=== PATIENT | male | born 1945 | race Caucasian/White ===

== ENCOUNTER → 2019-12-22 10:04 | Outpatient (BNVA) | payer MEDICARE, OTHER, SELFPAY | PROVIDERS: Family Provider Electrodiagnostic Medicine; PCP Electrodiagnostic Medicine; Visit Provider Urology | DX: R39.9 Unspecified symptoms and signs involving the genitourinary system (principal) | CPT/HCPCS: 81001 ==

== ENCOUNTER 2020-08-31 13:04 | Outpatient (CLI) | payer MEDICARE, OTHER, SELFPAY | END 2020-08-31 13:05 | disposition home or self-care (01) | LOC: WOUND 13:05 | PROVIDERS: Family Provider Electrodiagnostic Medicine; PCP Electrodiagnostic Medicine; Visit Provider Nurse Practitioner Family | DX: E11.621 Type 2 diabetes mellitus with foot ulcer (principal); L97.519 Non-pressure chronic ulcer of other part of right foot with unspecified severity | CPT/HCPCS: 99214 ==

== ENCOUNTER 2020-09-07 13:30 | Outpatient (CLI) | payer MEDICARE, OTHER, SELFPAY | END 2020-09-07 13:31 | disposition home or self-care (01) | LOC: WOUND 13:31 | PROVIDERS: Family Provider Electrodiagnostic Medicine; PCP Electrodiagnostic Medicine; Visit Provider Surgery | DX: E11.621 Type 2 diabetes mellitus with foot ulcer (principal); L97.512 Non-pressure chronic ulcer of other part of right foot with fat layer exposed | CPT/HCPCS: 11042 ==

== ENCOUNTER 2020-09-14 13:44 | Outpatient (CLI) | payer MEDICARE, OTHER, SELFPAY | END 2020-09-14 13:45 | disposition home or self-care (01) | LOC: WOUND 13:45 | PROVIDERS: Family Provider Electrodiagnostic Medicine; PCP Electrodiagnostic Medicine; Visit Provider Surgery | DX: E11.621 Type 2 diabetes mellitus with foot ulcer (principal); L97.519 Non-pressure chronic ulcer of other part of right foot with unspecified severity | CPT/HCPCS: 99212 ==

== ENCOUNTER 2020-09-26 07:37 | Outpatient (CLI) | payer MEDICARE, OTHER, SELFPAY ==
--- NOTE | 2020-09-26 07:46 | USCV_ITS ---
Andrés Dumont Age: 75 Gender: M : 1945 Exam Date: 09/26/2020 08:03 Ordering Phys: Hayley Esquivel Technologist: Janet Christensen Exam Location: [facility] [place]_ Indication: HISTORY: PROCEDURES: FINDINGS: The veins were found to be easily compressible with spontaneous blood flow. Non pulsatile flow pattern. Significant venous flux was noted in the distal greater saphenous vein segment on the left side CONCLUSIONS 1. No evidence of DVT in the above-mentioned identifiable veins. 2. Significant venous reflux of greater than 500 ms(1670 msec) was noted in the below-knee segment of the greater saphenous vein on the left side. The venous segment was 0.4 cm in diameter but at a depth of less than 1 cm from the skin surface-may not be ideal for ablation. 3. Rest of the venous dimensions and the depth from the surface are all as mentioned above Dr Danny Mcdonough MD [facility] (Electronically Signed) Final Date: 26 September 2020 14:45 S
== END 2020-09-26 07:38 | disposition home or self-care (01) ==
PROVIDERS: PCP Electrodiagnostic Medicine; Visit Provider Nurse Practitioner Family
DX: E11.621 Type 2 diabetes mellitus with foot ulcer (principal)
CPT/HCPCS: 93970

== ENCOUNTER 2020-09-28 07:40 | Outpatient (CLI) | payer MEDICARE, OTHER, SELFPAY ==
--- NOTE | 2020-09-28 07:46 | USCV_ITS ---
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 Noncompressible vessels bilaterally, suggesting extensive arterial sclerosis 2. Features suggestive of mild peripheral artery disease bilaterally Dr Danny Mcdonough MD [facility] (Electronically Signed) Final Date: 28 September 2020 16:39 S
== END 2020-09-28 07:41 | disposition home or self-care (01) ==
LOC: RAD 07:45
PROVIDERS: PCP Electrodiagnostic Medicine; Visit Provider Nurse Practitioner Family
DX: E11.621 Type 2 diabetes mellitus with foot ulcer (principal)
CPT/HCPCS: 93923

== ENCOUNTER 2020-11-19 11:43 | Outpatient (CLI) | payer MEDICARE, OTHER, SELFPAY ==
[2020-11-19 12:26] LABS: Basophils # 0.1 10^3/uL (0.0-0.1); Basophils % 0.7 %; Eosinophils # 0.4 10^3/uL (0.0-0.8); Eosinophils % 4.8 %; Hematocrit 49.1 % (42.0-52.0); Lymphocytes # 1.6 10^3/uL (0.8-4.8); Lymphocytes % 18.2 %; Mean Corpuscular HGB Conc 32.6 g/dL (30.0-36.0); Mean Corpuscular Hemoglobin 29.3 pg (28.0-34.0); Mean Corpuscular Volume 89.8 fl (80-94); Mean Platelet Volume 10.3 fL (7.4-10.4); Monocytes # 0.9 10^3/uL (0.2-0.9); Monocytes % 10.5 %; Neutrophils # 5.64 10^3/uL (1.8-7.7); Neutrophils % 65.2 %; Nucleated Red Blood Cells % 0 %; Platelet Count 320 10^3/cmm (130-400); Red Blood Count 5.47 10^6/uL (4.1-5.3); Red Cell Distribution Width 14.4 % (12.1-15.1); White Blood Count 8.7 10^3/uL (4.0-10.0)
[2020-11-19 12:43] LABS: Alanine Aminotransferase 32 U/L (0-41); Albumin Level 3.5 g/dL (3.5-5.2); Alkaline Phosphatase 196 IU/L (40-130); Aspartate Amino Transferase 39 U/L (0-40); Blood Urea Nitrogen 34 mg/dL (8-23); Calcium 8.7 mg/dL (8.5-10.5); Carbon Dioxide 27 mmol/L (22-29); Chloride 98 mmol/L (98-107); Globulin 3.8 g/dL (1.3-4.6); Glucose 152 mg/dL (65-115); Osmolality Calculated 297 mOsm/kg (285-295); Phosphorus 3.7 mg/dL (2.5-4.5); Sodium 138 mmol/L (136-145); Total Bilirubin 0.8 mg/dL (0.15-1.2); Total Protein 7.3 g/dL (6.6-8.7); Uric Acid 8.7 mg/dL (3.4-7.0)
[2020-11-19 12:55] LABS: Anion Gap 16.3 (5-19); Potassium 3.3 mmol/L (3.5-5.1)
[2020-11-19 13:10] LABS: Blood Urine 2+ (Negative); Glucose Urine UA Norm (Normal); Ketones Urine 1+ (Negative); Nitrate Urine Negative (Negative); Protein Urine 2+ (Negative); Urine Appearance Clear (CLEAR); Urine Color Yellow (Yellow); pH Urine 5 (5-7)
[2020-11-19 13:11] LABS: Add Urine Culture? No; Add Urine Microscopic? YES; Amorphous Sediment Urine 2+ /hpf; Bacteria Urine TRACE /hpf; Bilirubin Urine 1+ (Negative); Coarse Granular Casts Urine 25-40 /lpf; Leukocyte Esterase Urine Negative (Negative); RBC Urine RARE /hpf (0-2); Urobilinogen Urine Norm (Negative); WBC Urine 0-4 /hpf (0-5)
[2020-11-19 13:56] LABS: Calcium 8.7 mg/dL (8.5-10.5)
[2020-11-19 14:03] LABS: Parathyroid Hormone 112.7 pg/mL (15-65)
== END 2020-11-19 11:44 | disposition home or self-care (01) ==
LOC: LAB 11:53
PROVIDERS: PCP Electrodiagnostic Medicine; Visit Provider Internal Medicine
DX: N18.32 Chronic kidney disease, stage 3b (principal)
CPT/HCPCS: 36415; 80048; 80076; 81001; 82310; 83970; 84100; 84550; 85025

== ENCOUNTER → 2020-12-06 08:53 | Outpatient (BNVA) | payer MEDICARE, OTHER, SELFPAY | PROVIDERS: PCP Electrodiagnostic Medicine; Visit Provider Surgery | DX: Z11.52 Encounter for screening for COVID-19 (principal) | CPT/HCPCS: 87635 ==

== ENCOUNTER 2020-12-13 07:33 | Day surgery (SDC) | payer MEDICARE, OTHER, SELFPAY ==
[2020-12-10 11:17] VITALS: BMI 30.9
--- NOTE | 2020-12-13 08:26 | ANES.PREANE2 ---
Pre-Anesthetic Assessment Pre-Anesthetic Assessment: Height/Weight: Height 1.85 m Weight 106.594 kg Preop Diagnosis: panendoscopy Proposed Procedure: Operation Date: 12/13/20 09:15 Proposed Procedures p EGD Dilation W/ Balloon 79419 R63.8(Not Applicable) - Omar Saleh MD s Colonoscopy 77887 Z12.11(Not Applicable) - Omar Saleh MD Was Beta Bam taken within 24 hours: Yes Was Clonidine taken within 24 hours: N/A Social: Social History: No alcohol and No tobacco Exam: Pre-Anes Outpt Exam: alert, oriented x 3, clear to auscultation bilaterally and regular rate & rhythm Airway: Submandibular: WNL Cervical ROM: WNL Dentition: Chipped and False (upper) CV/HEM: CV/HEM: HTN GI: GI: GERD Metabolic: Metabolic: DM, Hyperlipidemia and Morbid obesity Anesthetic Plan: ASA status: 3 Anesthesia: MAC Risk of > 500 ml blood loss (7ml/kg in children): No PFSH Anesthesia PFSH: Medical History (Updated 11/16/20 @ 11:36 by Omar Saleh MD) Acute cystitis with hematuria Diabetes mellitus GERD (gastroesophageal reflux disease) Prostatitis, acute Venous insufficiency Surgical History (Updated 11/16/20 @ 11:44 by Omar Saleh MD) H/O esophagogastroduodenoscopy Hx of tonsillectomy Status post colonoscopy Status post right inguinal hernia repair Family History Mother , AT AGE 73 Cancer COLON Father , AT AGE 50 Diabetes Social History Alcohol intake: never Current occupational status: retired History of recent travel: No Data Anesthesia Cardiac Studies: No Data to Display
[2020-12-13 08:41] VITALS: BP 129/79; PULSE 78; RESP 16; TEMP 36.1; O2SAT 98
[2020-12-13] MEDS: sodium chloride 0.9% 1,000 ML 30 ML IV (08:58)
--- NOTE | 2020-12-13 09:10 | W.PM.OPSUD ---
Surgery/Procedure H&P Update DATE OF PROCEDURE: December 13, 2020 DATE H&P PERFORMED: 11/16/20 H&P UPDATE INFORMATION: I have reviewed H&P completed within last 30 days, I have examined patient prior to procedure and No changes to prior documentation PREOP DIAGNOSIS: panendoscopy PLANNED PROCEDURE: Operation Date: 12/13/20 09:15 Proposed Procedures p EGD Dilation W/ Balloon 05905 R63.8(Not Applicable) - Omar Saleh MD s Colonoscopy 25616 Z12.11(Not Applicable) - Omar Saleh MD
[2020-12-13 09:30] LABS: Glucose Point of Care 150 mg/dL (70-110)
[2020-12-13 10:16] VITALS: BP 82/56; PULSE 64; RESP 16; TEMP 35.6; O2SAT 98
[2020-12-13 10:17] VITALS: BP 92/63; PULSE 62; RESP 16; O2SAT 99
[2020-12-13 10:27] VITALS: BP 101/68; PULSE 69; RESP 18; O2SAT 98
--- NOTE | 2020-12-13 14:23 | ANE.PACU2 ---
Inpatient post-anesthesia follow up: Airway intact: Yes Vital signs: Temperature 96.0 F Pulse Rate 69 Respiratory Rate 18 Blood Pressure 101/68 Pulse Oximetry 98 Oxygen Delivery Me thod Room Air Oxygen Flow Rate 3 Fraction of Inspir ed Oxygen Hydration adequate: Yes Nausea and vomiting: No Pain level: 1 Mental status: Baseline
== END 2020-12-13 10:36 | disposition home or self-care (01) ==
PROVIDERS: PCP Electrodiagnostic Medicine; Visit Provider Surgery
PROC: 0DJD8ZZ Inspection of Lower Intestinal Tract, Via Natural or Artificial Opening Endoscopic (ICD-10-PCS; CPT 45378; 2020-12-13 09:15)
DX: Z12.11 Encounter for screening for malignant neoplasm of colon (principal); R63.8 Other symptoms and signs concerning food and fluid intake; K29.70 Gastritis, unspecified, without bleeding; D12.4 Benign neoplasm of descending colon; K64.8 Other hemorrhoids; I10 Essential (primary) hypertension; K21.9 Gastro-esophageal reflux disease without esophagitis; E11.9 Type 2 diabetes mellitus without complications; E78.5 Hyperlipidemia, unspecified; E66.01 Morbid (severe) obesity due to excess calories; Z68.31 Body mass index [BMI] 31.0-31.9, adult; Z79.4 Long term (current) use of insulin
CPT/HCPCS: 36416; 43235; 45380; 82962; 88305; 96360; 96361; J2704; J7030

== ENCOUNTER 2021-03-28 13:33 | Outpatient (CLI) | payer MEDICARE, OTHER, SELFPAY | END 2021-03-28 13:34 | disposition home or self-care (01) | LOC: SPT 13:34 | PROVIDERS: PCP Electrodiagnostic Medicine; Visit Provider Podiatrist Foot & Ankle Surgery | DX: Z46.89 Encounter for fitting and adjustment of other specified devices (principal); S90.424D Blister (nonthermal), right lesser toe(s), subsequent encounter; X58.XXXD Exposure to other specified factors, subsequent encounter | CPT/HCPCS: 97760; L4361 ==

== ENCOUNTER 2021-05-06 11:01 | Outpatient (CLI) | payer MEDICARE, OTHER, SELFPAY ==
[2021-05-06 12:01] LABS: Basophils # 0.1 10^3/uL (0.0-0.1); Basophils % 0.6 %; Eosinophils # 1.1 10^3/uL (0.0-0.8); Eosinophils % 11.4 %; Hematocrit 47.9 % (42.0-52.0); Hemoglobin 15.5 g/dL (11.7-16.6); Lymphocytes # 1.6 10^3/uL (0.8-4.8); Lymphocytes % 17.2 %; Mean Corpuscular HGB Conc 32.4 g/dL (30.0-36.0); Mean Corpuscular Hemoglobin 29.4 pg (28.0-34.0); Mean Corpuscular Volume 90.7 fl (80-94); Mean Platelet Volume 9.9 fL (7.4-10.4); Monocytes # 1.3 10^3/uL (0.2-0.9); Monocytes % 13.1 %; Neutrophils # 5.48 10^3/uL (1.8-7.7); Neutrophils % 57.3 %; Nucleated Red Blood Cells % 0 %; Platelet Count 310 10^3/cmm (130-400); Red Blood Count 5.28 10^6/uL (4.1-5.3); Red Cell Distribution Width 14.1 % (12.1-15.1); White Blood Count 9.6 10^3/uL (4.0-10.0)
[2021-05-06 12:12] LABS: Add Urine Microscopic? YES; Bilirubin Urine Neg (Negative); Blood Urine 2+ (Negative); Glucose Urine UA Trace (Normal); Ketones Urine Negative (Negative); Leukocyte Esterase Urine Negative (Negative); Nitrate Urine Negative (Negative); Protein Urine 1+ (Negative); Urine Appearance Clear (CLEAR); Urine Color Yellow (Yellow); Urobilinogen Urine Norm (Negative); pH Urine 6 (5-7)
[2021-05-06 12:13] LABS: RBC Urine RARE /hpf (0-2); WBC Urine RARE /hpf (0-5)
[2021-05-06 12:15] LABS: Phosphorus 3.4 mg/dL (2.5-4.5); Uric Acid 7.1 mg/dL (3.4-7.0)
[2021-05-06 12:31] LABS: Calcium 9.8 mg/dL (8.5-10.5)
[2021-05-06 12:39] LABS: Parathyroid Hormone 42.1 pg/mL (15-65)
== END 2021-05-06 11:02 | disposition home or self-care (01) ==
PROVIDERS: PCP Electrodiagnostic Medicine; Visit Provider Internal Medicine
DX: N17.9 Acute kidney failure, unspecified (principal); N18.32 Chronic kidney disease, stage 3b; E21.3 Hyperparathyroidism, unspecified
CPT/HCPCS: 81001; 82310; 83970; 84100; 84550; 85025

== ENCOUNTER → 2021-07-29 08:17 | Outpatient (BNVA) | payer MEDICARE, OTHER, SELFPAY | PROVIDERS: PCP Electrodiagnostic Medicine; Visit Provider Podiatrist Foot & Ankle Surgery | DX: L97.521 Non-pressure chronic ulcer of other part of left foot limited to breakdown of skin (principal); E11.42 Type 2 diabetes mellitus with diabetic polyneuropathy; I87.2 Venous insufficiency (chronic) (peripheral); L60.3 Nail dystrophy; M20.40 Other hammer toe(s) (acquired), unspecified foot; L97.511 Non-pressure chronic ulcer of other part of right foot limited to breakdown of skin; L84 Corns and callosities; Z87.891 Personal history of nicotine dependence | CPT/HCPCS: 11056; 11721; 99213 ==

== ENCOUNTER 2021-08-04 16:48 | Emergency (ER) | payer MEDICARE, OTHER, SELFPAY ==
[2021-08-04] VITALS (7 sets, daily range): BP systolic 157–166; BP diastolic 76–88; PULSE 72–83; RESP 18–20; TEMP 36.8–36.9; O2SAT 89–98; BMI 32.1
--- NOTE | 2021-08-04 18:00 | XRR_ITS ---
PROCEDURE INFORMATION: Exam: XR Chest Exam date and time: 08/04/2021 6:21 PM Age: 76 years old Clinical indication: Cough; Additional info: Productive cough TECHNIQUE: Imaging protocol: XR of the chest. Views: 1 view. COMPARISON: CT chest con [id number] 10/31/2016 8:06 AM FINDINGS: Lungs: There is no consolidation. Central pulmonary vessels are prominent. Pleural spaces: There is no pleural effusion or pneumothorax. Heart/Mediastinum: There is mild enlargement of the cardiac silhouette. Bones/joints: There are chronic left posterior rib fractures. XR/XR chest 1V portable [id number] IMPRESSION: No acute findings.
--- NOTE | 2021-08-04 18:17 | W.ED.URI ---
HPI - URI/Sore Throat General: Chief Complaint: Upper Respiratory Infection Stated Complaint: Sinus infection, coughing Time Seen by Provider: 08/04/21 18:11 History of Present Illness: Patient is a 76-year-old male who comes to the ED with cough and nasal congestion drainage. Patient says he gets this every year around this time. He has seasonal allergies and is currently using Flonase and daily oral antihistamine for his allergies. Nasal drainage/congestion and cough started yesterday. Patient can feel some of his nasal drainage going to the back of his throat causing him to cough. Cough is occasionally productive with yellow or clear sputum. Denies any chest pain, shortness of breath, fever, chills, body aches, sinus pain, nausea/vomiting, abdominal pain, bladder or bowel symptoms. Associated symptoms: Reports nasal congestion; Deny abdominal pain, chills, chest pain, diarrhea, fever(s), headache(s), nausea or vomiting Review of Systems Const: Denies: fever(s), chills or fatigue Eyes: Denies: change in vision or eye discomfort ENMT: Reports: nasal discharge, nasal congestion and post nasal drip; Denies: throat pain or odynophagia Card: Denies: chest pain, palpitations, edema, swelling of feet/ankles, dyspnea on exertion or orthopnea Resp: Reports: productive cough; Denies: dyspnea or non-productive cough GI: Denies: abdominal pain, nausea, vomiting, diarrhea, constipation or hematochezia : Denies: flank pain, difficulty urinating, dysuria or hematuria Musc: Denies: neck pain, back pain or extremity swelling Skin/Breast: Denies: rash or new lesions Neuro: Denies: headache(s), numbness in extremities or weakness in extremities PFS ED PFSH: Medical History Acute cystitis with hematuria Diabetes mellitus GERD (gastroesophageal reflux disease) Prostatitis, acute Venous insufficiency Surgical History H/O esophagogastroduodenoscopy (12/13/20) normal Hx of tonsillectomy Status post colonoscopy (12/13/20) descending colon polyp Status post right inguinal hernia repair Family History Mother , AT AGE 73 Cancer COLON Father , AT AGE 50 Diabetes Social History Smoking and tobacco status: former smoker Alcohol intake: never Current occupational status: retired History of recent travel: No Physical Exam Const: COMMON NORMALS: patient oriented x3, healthy appearing and alert GENERAL APPEARANCE: cooperative and comfortable HENMT: COMMON NORMALS: normocephalic HEAD & SCALP: normocephalic MOUTH: Normal oral and palatal mucosa present THROAT: posterior oropharynx normal and uvula midline Neck/C-Spine: COMMON NORMALS: supple GENERAL: Yes normal visual inspection Resp: COMMON NORMALS: normal respiratory effort, No retractions, No use of accessory muscles and clear to auscultation bilaterally EFFORT & INSPECTION: Yes able to speak in complete sentences, No tachypneic, No respiratory distress and Yes Actively coughing non-productive and moist AUSCULTATION: clear to auscultation bilaterally Cardio: COMMON NORMALS: regular rate, regular rhythm, S1 normal heart sound present, S2 normal heart sound present, No gallops present (Cardio), No clicks present (Cardio), No murmurs present (Cardio) and Peripheral pulses 2+ throughout RATE: regular rate RHYTHM: regular rhythm HEART SOUNDS: S1 normal heart sound present and S2 normal heart sound present PERIPHERAL PULSES: Peripheral pulses 2+ throughout GI: COMMON NORMALS: Normal to inspection, nondistended, normoactive bowel sounds present, Soft to palpation, non-tender and no masses PALPATION: Yes Soft to palpation : COMMON NORMALS: Yes no CVA tenderness BLADDER/KIDNEY EXAM: Yes no CVA tenderness Back/Pelvis: COMMON NORMALS: no CVA tenderness Extremity: COMMON NORMALS: normal to inspection Neuro: COMMON NORMALS: patient oriented x3 and moves all extremities SENSORIUM/ORIENTATION: Yes alert Skin: GENERAL SKIN EXAM: dry skin Course Consultations: Consultation #1: I ordered a home O2 eval on patient. Respiratory came by and performed home O2 eval and he did not qualify for home oxygen. Time: 20:27 Vital Signs: Vital signs: Vital Signs Temperature 98.4 F 08/04/21 17:19 Pulse Rate 82 08/04/21 20:38 Respiratory Rate 20 H 08/04/21 20:38 Blood Pressure 157/88 08/04/21 20:38 Pulse Oximetry 91 08/04/21 20:38 MDM - URI/Sore Throat Medical Decision Making Patient is a 76-year-old male comes to the ED with a cough nasal drainage and congestion. Patient has seasonal allergies and says he gets this every year. Vitals are stable. Patient is actively coughing during exam. He appears in no acute distress or pain. His lungs are clear to auscultation bilaterally. Chest x-ray showed no acute findings. DuoNeb breathing treatment given here in the ED and patient felt better afterwards. Home O2 eval was done and patient did not qualify for home oxygen. He was given a dose of Solu-Medrol and azithromycin here in the ED. He is diagnosed with bronchitis and discharged home with a prescription for azithromycin and prednisone. Patient told to follow-up with PCP in the next week for reevaluation. Return to ED precautions given. Patient understood and agree with plan. Lab Data Radiology Impressions Chest X-Ray 08/04/21 18:00 IMPRESSION: No acute findings. Discharge Plan Discharge Patient Disposition: Home Clinical Impression: Acute bronchitis Qualifiers: Bronchitis organism: unspecified organism Qualified Code(s): J20.9 - Acute bronchitis, unspecified Condition: Stable Prescriptions: New azithromycin 250 mg tablet 250 mg PO DAILY 4 Days Qty: 4 0RF Rx Instructions: start on day 2 of therapy prednisone 20 mg tablet 20 mg PO BID 5 Days Qty: 10 0RF benzonatate 100 mg capsule 100 mg PO Q6H PRN (Reason: cough) Qty: 20 0RF No Action rosuvastatin 40 mg tablet 40 mg PO DAILY 0RF mupirocin 2 % ointment 1 applic topical BID Qty: 22 1RF Rx Instructions: Apply to affected area until healed triamcinolone acetonide 0.1 % ointment 1 applic topical BID Qty: 453.6 1RF Rx Instructions: to trunk and extremities no more than 2 wks/mo (DME) cam boot See Rx Instructions .Route .MEDSUPPLY Qty: 1 0RF Rx Instructions: As directed mupirocin 2 % ointment 1 applic topical BID 14 Days Qty: 22 3RF amlodipine 10 mg tablet 10 mg PO DAILY 0RF triamterene-hydrochlorothiazid 75-50 mg tablet 1 tab PO DAILY 0RF metoprolol succinate 100 mg tablet extended release 24 hr 100 mg PO DAILY 0RF glipizide 10 mg tablet 10 mg PO DAILY 0RF Lantus U-100 Insulin 100 unit/mL solution 60 unit SUBCUT DAILY 0RF pantoprazole 40 mg tablet,delayed release (DR/EC) 40 mg PO BID 0RF sucralfate [Carafate] 1 gram tablet 1 g PO TID Qty: 90 0RF Discharge Orders: Discharge ED (Routine); Ordered 08/04/21 Ordered By: Nikko Arriaga Referrals: Humberto Griggs, [Primary Care Provider] - Discharge Diet: Regular Discharge Activity: Increase activity as tolerated Patient Instructions: Acute Bronchitis (ED), Allergies (ED) Activity Restrictions/Additional Instructions: Follow-up with medical provider as directed. Take medications as prescribed. Return to the ER or your medical provider if condition worsens. Please read and understand discharge instructions. Thank you for choosing [facility] for your healthcare needs today. Please realize this is an emergency room and that we are providing you with a medical screening exam and this may not be complete and all inclusive of all the testing and or work up that you may need to determine your ailment or severity of your illness. It is very important that you follow up as instructed or that you return to the Emergency Department should you have concerns or if your condition changes or worsens in any way. Coding Level of Care Code ED Cash Register Servicer for Lois Greco Exam Comprehensive
--- NOTE | 2021-08-04 19:08 | PC.NURSE ---
1899 Assumed pt care from Fay BUCKLEY
[2021-08-04] MEDS: ipratropium-albuterol 3 mL Neb 6 ML INHALATION (19:29)
[2021-08-04] MEDS: azithromycin 250 mg Tablet 500 MG PO (19:32)
[2021-08-04] MEDS: benzonatate 100 mg Capsule PO (20:41)
== END 2021-08-04 20:38 | disposition home or self-care (01) ==
PROVIDERS: Emergency Provider Physician Assistant; PCP Electrodiagnostic Medicine
DX: J20.9 Acute bronchitis, unspecified (principal); Z87.891 Personal history of nicotine dependence; Z79.4 Long term (current) use of insulin
CPT/HCPCS: 71045; 94640; 96374; 99284; J2930; Q0144

== ENCOUNTER → 2021-08-20 10:24 | Outpatient (BNVA) | payer MEDICARE, OTHER, SELFPAY | PROVIDERS: PCP Electrodiagnostic Medicine; Visit Provider Podiatrist Foot & Ankle Surgery | DX: L97.521 Non-pressure chronic ulcer of other part of left foot limited to breakdown of skin (principal); E11.42 Type 2 diabetes mellitus with diabetic polyneuropathy; I87.2 Venous insufficiency (chronic) (peripheral); L60.3 Nail dystrophy; M20.40 Other hammer toe(s) (acquired), unspecified foot; L97.511 Non-pressure chronic ulcer of other part of right foot limited to breakdown of skin; L84 Corns and callosities | CPT/HCPCS: 99213; 99214 ==

== ENCOUNTER 2021-09-18 12:57 | Inpatient (IN) | payer MEDICARE, OTHER, SELFPAY ==
--- NOTE | 2021-09-18 13:18 | XR_ITS ---
WS: [id number] PORTABLE CHEST HISTORY: dyspnea/cough COMPARISON: 08/04/2021 Mild emphysema. No nodule. Linear atelectasis or scar at the lingula. No pleural effusion or pneumoth orax. Cardiac size: Mildly enlarged cardiac silhouette. Mediastinum/Aorta: Mild atherosclerosis aorta. No osseous abnormality seen. XR/XR chest 1V portable [id number] IMPRESSION: Mild subsegmental atelectasis or scar in the lingula. No pneumonia.
[2021-09-18 13:21] VITALS: BP 111/72; PULSE 114; RESP 20; O2SAT 95; BMI 31.4
--- NOTE | 2021-09-18 13:49 | CT_ITS ---
WS: [id number] CT ABDOMEN AND PELVIS NONCONTRAST HISTORY: Abdominal pain, 3 days of weakness and tiredness. Heartburn. TECHNIQUE: Imaging performed through the abdomen and pelvis. Coronal and sagittal reformats are submi tted. All CT scans at [facility] use at least one of these dose optimization techniques: auto mated exposure control; mA and/or kV adjustment per patient size (includes targeted exams where dose is matched to clinical indication); or iterative reconstruction. DLP: 1928.3 mGy.cm COMPARISON: 07/11/2018. Lower thorax: Mild dependent changes at the lung bases. Heart is very slightly enlarged. Moderate to severe coronary artery calcified plaque. No pericardial effusion. Small hiatal hernia. Liver: Moderate enlargement of the liver with diffuse low attenuation from hepatic steatosis. No mass identified on this unenhanced study. Gallbladder: Mildly distended gallbladder with mild gallbladder wall thickening. Sludge or stones wit hin the gallbladder. The common bile duct is normal size. Pancreas: Atrophied pancreas. No pancreatic duct dilatation. Spleen: Granulomatous. Normal size. Adrenal glands: Normal. No mass. Right kidney: Perinephric stranding. No obstruction. Calcification in the renal pelvis is probably va scular. Left kidney: Perinephric stranding. No obstruction. Aorta: Moderate to severe atherosclerosis abdominal aorta. No aneurysm. Atherosclerosis continues int o the common iliac arteries. Moderate calcified plaque at the origin of the SMA and mild at the origi n of the celiac axis. Proximal renal artery calcifications. Small central mesenteric lymph nodes. The largest measure up to 11 mm in diameter. The largest lymph node is adjacent to the proximal hepatic artery. Stable since 07/11/2018. GI tract: Minimally distended stomach. There is mild wall thickening of the duodenal C-loop which may be a secondary reaction to the acute cholecystitis. No obstruction. No small bowel obstruction. The appendix is normal. Abdominal wall: Negative. No hernia. Pelvis: Normally distended urinary bladder. Very minimal prostate gland enlargement. Continued modera te plaque within the iliac arteries. Osseous structures: Moderate spondylitic changes in the lumbar spine. Healed rib fractures in the pos terior lower LEFT thorax. CT/CT abdomen pelvis wo con [id number] IMPRESSION: 1. Findings consistent with acute cholecystitis. Recommend ultrasound evaluati on to evaluate for stones. 2. No bile duct dilatation. 3. Mild thickening of the duodenal C-loop is probably secondary reaction to th e acute cholecystitis. 4. Mild stable perinephric stranding around each kidney. 5. Small hiatal hernia. 6. Moderate atherosclerotic plaque within the aorta. Suspect component of sten osis involving the mesenteric artery origins, most significant at the SMA and a lso the renal arteries.
--- NOTE | 2021-09-18 13:50 | ECG_ITS ---
[facility] Test Date: 2021-09-18 Pat Name: Andrés Dumont Department: Room: Gender: Male [employer] Access Developer: : 1945 Requested By: Alexis Galvan Order Number: [id number] Reading MD: Boris Martins M.D. Measurements Intervals [place] Rate: 96 P: ME: QRS: -58 QRSD: 93 T: 56 QT: 339 QTc: 430 Interpretive Statements ATRIAL FIBRILLATION LOW QRS VOLTAGE IN EXTREMITY LEADS [QRS DEFLECTION < 0.5 mV IN LIMB LEADS] PATTERN CONSISTENT WITH PULMONARY DISEASE LEFT ANTERIOR FASCICULAR BLOCK [QRS AXIS <= -45, QR IN I, RS IN II] SEPTAL MYOCARDIAL INFARCTION , PROBABLY OLD [40+ ms Q WAVE IN V1/V2] INFERIOR MYOCARDIAL INFARCTION , PROBABLY OLD [40+ ms Q WAVE AND/OR ST/T ABNORMALITY IN II/aVF] Compared to ECG 12/01/2016 12:07:53 Low QRS voltage now present Left anterior fascicular block now present Sinus rhythm no longer present First degree AV block no longer present Myocardial infarct finding still present Electronically Signed On 09-18-2021 15:17:21 CDT by Boris Martins M.D. [email or web address]
[2021-09-18 13:56] VITALS: BP 140/76; PULSE 109; RESP 25; O2SAT 97
[2021-09-18 13:56] LABS: Basophils % 0.2 %; Eosinophils # 0.1 10^3/uL (0.0-0.8); Eosinophils % 0.3 %; Hematocrit 45.7 % (42.0-52.0); Hemoglobin 15.4 g/dL (11.7-16.6); Lymphocytes # 1.4 10^3/uL (0.8-4.8); Lymphocytes % 5.2 %; Mean Corpuscular HGB Conc 33.7 g/dL (30.0-36.0); Mean Corpuscular Hemoglobin 29.8 pg (28.0-34.0); Mean Corpuscular Volume 88.4 fl (80-94); Mean Platelet Volume 10.4 fL (7.4-10.4); Monocytes # 2.5 10^3/uL (0.2-0.9); Monocytes % 9.6 %; Neutrophils % 83.5 %; Nucleated Red Blood Cells % 0 %; Platelet Count 319 10^3/cmm (130-400); Red Blood Count 5.17 10^6/uL (4.1-5.3); Red Cell Distribution Width 14.4 % (12.1-15.1); White Blood Count 26.1 10^3/uL (4.0-10.0)
[2021-09-18 14:16] LABS: Alanine Aminotransferase 45 U/L (0-41); Albumin Level 3.3 g/dL (3.5-5.2); Alkaline Phosphatase 396 IU/L (40-130); Anion Gap 17.6 (5-19); Aspartate Amino Transferase 31 U/L (0-40); Blood Urea Nitrogen 30 mg/dL (8-23); Calcium 9.3 mg/dL (8.5-10.5); Carbon Dioxide 28 mmol/L (22-29); Chloride 87 mmol/L (98-107); Globulin 4.9 g/dL (1.3-4.6); Glucose 220 mg/dL (65-115); Osmolality Calculated 281 mOsm/kg (285-295); Potassium 3.6 mmol/L (3.5-5.1); Sodium 129 mmol/L (136-145); Total Bilirubin 1.5 mg/dL (0.15-1.2); Total Protein 8.2 g/dL (6.6-8.7)
--- NOTE | 2021-09-18 14:37 | US_ITS ---
WS: [id number] RIGHT UPPER QUADRANT ULTRASOUND HISTORY: abd pain/elevated LFTs and t bili COMPARISON: CT 09/18/2021 Liver: 17.7 cm in length. Liver is moderately enlarged. Diffuse attenuation probably from hepatic marta atosis throughout the liver. No bile duct dilatation. Portal Vein: Normal hepatopetal flow with monophasic waveform. Gallbladder: Moderately distended and hydropic gallbladder measuring up to 5 cm transversely. There i s diffuse wall thickening with edema measuring over 3 mm. There is sludge layering in the dependent g allbladder. There are probably stones also present within the sludge. CBD: 0.6 cm Pancreas: Poorly visualized. Right kidney: 14.0 cm in length. Very slight bulging of the contour involving the mid kidney. Possibl e hypoechoic cortical mass measuring 3.6 x 4.0 x 4.2 cm. This is nearly isoechoic to the adjacent yves al parenchyma. Aorta and IVC: Unremarkable abdominal aorta and IVC. No ascites. US/US gall bladder [id number] IMPRESSION: 1. Findings of acute cholecystitis. Sludge and probable stones in the dependen t gallbladder. 2. No bile duct dilatation. 3. Suspicious for RIGHT renal mass in the mid kidney. Recommend follow-up antoinette l CT mass protocol in 6-8 weeks.
--- NOTE | 2021-09-18 15:00 | W.ED.WEAKNES ---
HPI - Weakness General: Chief complaint: Weakness Stated complaint: Weakness, Heart burn, tired Time Seen by Provider: 09/18/21 13:17 Source: patient Mode of arrival: ambulatory Limitations: no limitations History of Present Illness: 76-year-old male presents emergency room complaining of epigastric right upper quadrant abdominal pain intermittently for the last several days complaining mostly of heartburn eating makes his symptoms worse she has had some loose stools. Denies any hematocheziamelena hematemesis or coffee-ground emesis. No dysuria or hematuria. Does not have a fever at home he has had previous episodes that were much less intense. He has not eaten for the last several days because of it. MD Complaint: generalized weakness Onset (ago): day(s) Duration: intermittent Migration: other (Flank and back on the right side) Severity: moderate Quality: sharp Relieving factors: none Exacerbating factors: none Associated symptoms: Reports decreased appetite and nausea; Denies chest pain, chills, confusion, melena, diaphoresis, dysuria, easy bruising, fever(s), headache(s), myalgias, rash, short of breath, syncope or vomiting Review of Systems Const: Reports: fatigue and malaise; Denies: fever(s), chills or diaphoresis ENMT: Denies: throat pain, ear or mastoid pain, nasal discharge or nasal congestion Card: Denies: chest pain or syncope Resp: Denies: dyspnea, productive cough or non-productive cough GI: Reports: abdominal pain, nausea and GI cramping; Denies: vomiting, hematemesis, coffee ground emesis, diarrhea or melena : Reports: flank pain; Denies: difficulty urinating, dysuria or urinary frequency Skin/Breast: Denies: rash or pruritus Neuro: Denies: headache(s) or confusion Oc/Lymph: Denies: easy bruising PFSH ED PFSH: Medical History Acute cystitis with hematuria Diabetes mellitus GERD (gastroesophageal reflux disease) Prostatitis, acute Venous insufficiency Surgical History H/O esophagogastroduodenoscopy (12/13/20) normal Hx of tonsillectomy Status post colonoscopy (12/13/20) descending colon polyp Status post right inguinal hernia repair Family History Mother , AT AGE 73 Cancer COLON Father , AT AGE 50 Diabetes Social History Smoking and tobacco status: former smoker Alcohol intake: never Current occupational status: retired History of recent travel: No Physical Exam Const: GENERAL APPEARANCE: cooperative and comfortable ORIENTATION/CONSCIOUSNESS: Yes awake, Yes oriented to person, Yes oriented to place and Yes oriented to time HENMT: COMMON NORMALS: normocephalic, atraumatic and hearing grossly normal bilaterally HEAD & SCALP: normocephalic and atraumatic Neck/C-Spine: COMMON NORMALS: no JVD Resp: COMMON NORMALS: normal respiratory effort, No retractions, No use of accessory muscles and clear to auscultation bilaterally AUSCULTATION: clear to auscultation bilaterally Cardio: COMMON NORMALS: no JVD, regular rate, regular rhythm and No murmurs present (Cardio) RATE: regular rate RHYTHM: regular rhythm GI: COMMON NORMALS: No hepatosplenomegaly present AUSCULTATION: Yes normoactive bowel sounds PALPATION: Yes Tenderness to palpation present (GI) (Epigastric right upper quadrant, positive Cano sign), No Guarding due to palpation present (GI) and Yes No hepatosplenomegaly present Extremity: COMMON NORMALS: normal to inspection, capillary refill normal, no clubbing, cyanosis or edema, no calf tenderness and no pedal edema Neuro: SENSORIUM/ORIENTATION: Yes oriented to person, Yes oriented to place and Yes oriented to time Skin: COMMON NORMALS: no rashes or lesions noted GENERAL SKIN EXAM: no rashes or lesions noted Course Vital Signs: Vital signs: Vital Signs Pulse Rate 109 H 09/18/21 13:56 Respiratory Rate 25 H 09/18/21 13:56 Blood Pressure 140/76 09/18/21 13:56 Pulse Oximetry 97 09/18/21 13:56 MDM - Weakness Medical Decision Making Elevated alk phos and T bili. No bowel dilation, lactic ultrasound shows acute cholecystitis elevated white count discussed with surgeon and with hospitalist will admit surgery to consult. Orders written Medical Records I reviewed the patient's medical records. Lab Data I reviewed the patient's lab results. : 09/18/21 13:37 09/18/21 13:37 Radiology Impressions Chest X-Ray 09/18/21 13:18 IMPRESSION: Mild subsegmental atelectasis or scar in the lingula. No pneumonia. Abdomen/Pelvis CT 09/18/21 13:49 IMPRESSION: 1. Findings consistent with acute cholecystitis. Recommend ultrasound evaluation to evaluate for stones. 2. No bile duct dilatation. 3. Mild thickening of the duodenal C-loop is probably secondary reaction to the acute cholecystitis. 4. Mild stable perinephric stranding around each kidney. 5. Small hiatal hernia. 6. Moderate atherosclerotic plaque within the aorta. Suspect component of stenosis involving the mesenteric artery origins, most significant at the SMA and also the renal arteries. Laboratory Results WBC 26.1 10^3/uL (4.0-10.0) H 09/18/21 13:37 RBC 5.17 10^6/uL (4.1-5.3) 09/18/21 13:37 Hgb 15.4 g/dL (11.7-16.6) 09/18/21 13:37 Hct 45.7 % (42.0-52.0) 09/18/21 13:37 MCV 88.4 fl (80-94) 09/18/21 13:37 MCH 29.8 pg (28.0-34.0) 09/18/21 13:37 MCHC 33.7 g/dL (30.0-36.0) 09/18/21 13:37 RDW 14.4 % (12.1-15.1) 09/18/21 13:37 Plt Count 319 10^3/cmm (130-400) 09/18/21 13:37 MPV 10.4 fL (7.4-10.4) 09/18/21 13:37 Neut % (Auto) 83.5 % 09/18/21 13:37 Lymph % (Auto) 5.2 % 09/18/21 13:37 [place] % (Auto) 9.6 % 09/18/21 13:37 Eos % (Auto) 0.3 % 09/18/21 13:37 Baso % (Auto) 0.2 % 09/18/21 13:37 Neut # (Auto) 21.80 10^3/uL (1.8-7.7) H 09/18/21 13:37 Lymph # (Auto) 1.4 10^3/uL (0.8-4.8) 09/18/21 13:37 [place] # (Auto) 2.5 10^3/uL (0.2-0.9) H 09/18/21 13:37 Eos # (Auto) 0.1 10^3/uL (0.0-0.8) 09/18/21 13:37 Baso # (Auto) 0.0 10^3/uL (0.0-0.1) 09/18/21 13:37 Nucleated RBC % (auto) 0 % 09/18/21 13:37 Nucleated RBCs # 0.0 /100WBC 09/18/21 13:37 Sodium 129 mmol/L (136-145) L 09/18/21 13:37 Potassium 3.6 mmol/L (3.5-5.1) 09/18/21 13:37 Chloride 87 mmol/L (98-107) L 09/18/21 13:37 Carbon Dioxide 28 mmol/L (22-29) 09/18/21 13:37 Anion Gap 17.6 (5-19) 09/18/21 13:37 BUN 30 mg/dL (8-23) H 09/18/21 13:37 Creatinine 1.6 mg/dL (0.7-1.2) H 09/18/21 13:37 GFR Calculation Not Reportable 09/18/21 13:37 Glucose 220 mg/dL (65-115) H 09/18/21 13:37 Calculated Osmolality 281 mOsm/kg (285-295) L 09/18/21 13:37 Calcium 9.3 mg/dL (8.5-10.5) 09/18/21 13:37 Total Bilirubin 1.5 mg/dL (0.15-1.2) H 09/18/21 13:37 AST 31 U/L (0-40) 09/18/21 13:37 ALT 45 U/L (0-41) H 09/18/21 13:37 Alkaline Phosphatase 396 IU/L (40-130) H 09/18/21 13:37 Total Protein 8.2 g/dL (6.6-8.7) 09/18/21 13:37 Albumin 3.3 g/dL (3.5-5.2) L 09/18/21 13:37 Globulin 4.9 g/dL (1.3-4.6) H 09/18/21 13:37 Discharge Plan Discharge Patient Disposition: Admitted As Inpatient Clinical Impression: Acute cholecystitis, Diabetes mellitus, Mass of right kidney Condition: Stable Prescriptions: No Action rosuvastatin 40 mg tablet 40 mg PO DAILY 0RF triamcinolone acetonide 0.1 % ointment 1 applic topical BID Qty: 453.6 1RF Rx Instructions: to trunk and extremities no more than 2 wks/mo (DME) cam boot See Rx Instructions .Route .MEDSUPPLY Qty: 1 0RF Rx Instructions: As directed mupirocin 2 % ointment 1 applic topical BID 14 Days Qty: 22 3RF amlodipine 10 mg tablet 10 mg PO DAILY 0RF triamterene-hydrochlorothiazid 75-50 mg tablet 1 tab PO DAILY 0RF Lantus U-100 Insulin 100 unit/mL solution 30 unit SUBCUT BID 0RF pantoprazole 40 mg tablet,delayed release (DR/EC) 40 mg PO BID 0RF glipizide 10 mg tablet extended release 24hr 10 mg PO DAILY 0RF allopurinol 100 mg Tablet 100 mg PO DAILY 0RF magnesium 250 mg Tablet 250 mg PO DAILY 0RF Lasix 20 mg Tablet 20 mg PO DAILY 0RF lisinopril 40 mg Tablet 40 mg PO DAILY 0RF Flonase 50 mcg/actuation [place],Suspension 2 spray INTRANASAL DAILY PRN (Reason: Nasal Congestion) 0RF Rx Instructions: administer into each nostril calcitriol 0.25 mcg Capsule See Rx Instructions .ROUTE .COMPLEX 0RF Rx Instructions: 0.25 mcg orally twice weekly on and Thursday sildenafil (pulm.hypertension) 20 mg tablet See Rx Instructions .ROUTE .COMPLEX PRN (Reason: Desired Effect) 0RF Rx Instructions: 20 mg orally 1-4 hours before desired effect - no more than 2 tablets in a 24 hour period Xyzal 5 mg Tablet 5 mg PO DAILY 0RF potassium chloride 20 mEq Tablet Extended Release 20 meq PO DAILY 0RF Referrals: Humberto Griggs DO [Primary Care Provider] - Coding Level of Care Code ED Consumer Insight Manager for Chg Fwd Exam Comprehensive
[2021-09-18] MEDS: piperacillin-tazobactam 3.375 GM in sodium chloride 0.9% (plus) 50 ML IV ×2 (15:47→19:42)
[2021-09-18 15:50] LABS: Lactic Sepsis W/Reflex 2.4 mmol/L (0.5-2.2)
--- NOTE | 2021-09-18 15:50 | ECG_ITS ---
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 Measurements Intervals [place] Rate: 102 P: [place]: QRS: -65 QRSD: 92 T: 66 QT: 335 QTc: 437 Interpretive Statements ATRIAL FIBRILLATION WITH RAPID VENTRICULAR RESPONSE PATTERN CONSISTENT WITH PULMONARY DISEASE LEFT ANTERIOR FASCICULAR BLOCK [QRS AXIS <= -45, QR IN I, RS IN II] SEPTAL MYOCARDIAL INFARCTION , PROBABLY OLD [40+ ms Q WAVE IN V1/V2] Compared to ECG 09/18/2021 14:09:52 No significant changes Electronically Signed On 09-19-2021 19:03:41 CDT by Duane Mccullough M.D. [id number]
[2021-09-18 15:51] LABS: Add Urine Microscopic? YES; Bilirubin Urine Neg (Negative); Blood Urine 3+ (Negative); Glucose Urine UA Norm (Normal); Ketones Urine Negative (Negative); Leukocyte Esterase Urine Negative (Negative); Nitrate Urine Negative (Negative); Protein Urine 2+ (Negative); RBC Urine 0-4 /hpf (0-2); Specific Gravity, Urine 1.005 (1.005-1.030); Squamous Epithelial Cell Urine 0-4 /hpf (0-5); Urine Appearance Clear (CLEAR); Urine Color Yellow (Yellow); Urobilinogen Urine Norm (Negative); WBC Urine 0-4 /hpf (0-5); pH Urine 6 (5-7)
[2021-09-18 15:52] LABS: Add Urine Culture? No
[2021-09-18 16:09] VITALS: BP 140/76; PULSE 101; RESP 22; O2SAT 100
[2021-09-18 16:14] LABS: Troponin(5th) Baseline 30 ng/L (0-15)
[2021-09-18] MEDS: levofloxacin-dextrose 5 % 750 MG/150 ML PREMIX 100 MG IV (16:16)
[2021-09-18 16:48] LABS: Reflex Lactate Order REFLEX LACTIC ORDERD
--- NOTE | 2021-09-18 17:15 | PM.HP ---
Providers/Chief Complaint Admitting Physician: Hermila Hung MD Primary Care Provider: Humberto Griggs DO Chief Complaint: Weakness, Heart burn, tired History of Present Illness Andrés Dumont is a 76 year old male presented today with chief complaint abdominal pain. Patient stating that his symptoms started on Thursday which she described as burning sensation in right and mid epigastric region of his abdomen. He has not noticed any fever, chest pain, diarrhea. He has been suffering from sinusitis and attributed 1 episode of emesis to pulse of the drip. Because of worsening of symptoms he decided come to the hospital. Patient is stating that he never was diagnosed with pulmonary hypertension and he did take sildenafil for ED. His legs still swollen because of amlodipine side effect. Patient is denying previous history of [place], coronary disease or CHF. In the ER he has been diagnosed with acute cholecystitis, plan for surgery 1 PM tomorrow, I will have him eat low-fat diet today, keep him on normal saline, hold hypertensive Requested preoperative echo, TSH and BNP Dr. Albarado is seeing him in the ER right now Review of Systems Const: Reports: chills and body aches Eyes: Denies: change in vision ENMT: Denies: throat pain Card: Denies: chest pain Resp: Reports: dyspnea GI: Reports: nausea : Denies: flank pain Musc: Denies: neck pain Skin/Breast: Denies: rash Neuro: Denies: headache(s) Psych: Denies: anxiety Endo: Denies: polyuria Oc/Lymph: Denies: easy bruising All/Imm: Denies: urticaria Medications/Allergies Home Medications Medication Instructions Recorded Confirmed Last Taken Type amlodipine 10 mg tablet 10 mg PO DAILY 12/22/19 09/18/21 09/18/21 History triamterene 75 1 tab PO DAILY 12/22/19 09/18/21 09/18/21 History mg-hydrochlorothiazide 50 mg tablet insulin glargine 100 unit/mL 30 unit SUBCUT BID ml 10/31/20 09/18/21 09/18/21 History subcutaneous solution (Lantus U-100 Insulin) rosuvastatin 40 mg tablet 40 mg PO DAILY 10/31/20 09/18/21 09/17/21 History pantoprazole 40 mg tablet,delayed 40 mg PO BID tab 11/19/20 09/18/2109/18/22 History release triamcinolone acetonide 0.1 % 1 applic TOPICAL BID #453.6 g 02/21/21 09/18/21 Unknown Rx topical ointment cam boot #1 ea 03/28/21 09/18/21 Unknown Rx mupirocin 2 % topical ointment 1 applic TOPICAL BID 14 Days #22 g 07/29/21 09/18/21 Unknown Rx allopurinol 100 mg tablet 100 mg PO DAILY 09/18/21 09/18/21 09/18/21 History calcitriol 0.25 mcg capsule See Rx Instructions .ROUTE .COMPLEX 09/18/21 09/18/21 09/17/21 History fluticasone propionate 50 2 spray INTRANASAL DAILY PRN 09/18/21 09/18/21 Unknown History mcg/actuation nasal spray,suspension furosemide 20 mg tablet (Lasix) 20 mg PO DAILY 09/18/21 09/18/21 09/18/21 History glipizide 10 mg tablet, extended 10 mg PO DAILY 09/18/21 09/18/21 09/18/21 History release 24 hr levocetirizine 5 mg tablet (Xyzal) 5 mg PO DAILY 09/18/21 09/18/21 09/18/21 History lisinopril 40 mg tablet 40 mg PO DAILY 09/18/21 09/18/21 09/18/21 History magnesium 250 mg tablet 250 mg PO DAILY 09/18/21 09/18/21 09/18/21 History potassium chloride 20 mEq 20 meq PO DAILY 09/18/21 09/18/21 09/18/21 History tablet,extended release sildenafil (pulm.hypertension) 20 See Rx Instructions .ROUTE 09/18/21 09/18/21 Unknown History mg tablet .COMPLEX PRN Allergies Allergy/AdvReac Type Severity Reaction Status Date / Time lovastatin Allergy RASH Verified 08/20/21 10:32 PFSH Acute PFSH: Medical History Acute cystitis with hematuria Diabetes mellitus GERD (gastroesophageal reflux disease) Prostatitis, acute Venous insufficiency Surgical History H/O esophagogastroduodenoscopy (12/13/20) normal Hx of tonsillectomy Status post colonoscopy (12/13/20) descending colon polyp Status post right inguinal hernia repair Family History Mother , AT AGE 73 Cancer COLON Father , AT AGE 50 Diabetes Social History Smoking and tobacco status: former smoker Alcohol intake: never Current occupational status: retired History of recent travel: No Vitals/I&O/Wt Last Vital Signs Pulse 101 H 09/18/21 16:09 Resp 22 H 09/18/21 16:09 BP 140/76 09/18/21 16:09 Pulse Ox 100 09/18/21 16:09 09/18/21 09/18/21 09/18/21 06:59 14:59 22:59 Intake Total 50 / 50 Balance 50 / 50 Weight last 48 hrs Weight 111.13 kg Physical Exam Narrative: Alert pleasant cooperative male Cano sign negative during my encounter Abdomen is distended however soft no signs of guarding rigidity or peritonitis Bowel sound present Bilateral breath sounds without adventitial rhonchi or crackles S1, S2 Tachycardia Nonfocal neuro exam Currently saturating well on room air No sign of skin rash Lower extremity 1+ edema Data : 09/18/21 13:37 09/18/21 13:37 Micro: Microbiology 09/18/21 15:31 Blood Culture - Preliminary Blood SPECIMEN COLLECTED 09/18/21 15:28 Blood Culture - Preliminary Blood SPECIMEN COLLECTED A&P Assessment and plan (1) Acute cholecystitis: Status: Acute (2) Diabetes mellitus: Status: Acute (3) Mass of right kidney: Status: Acute (4) Callus of foot: Status: Acute (5) Chronic ulcer of great toe of right foot, limited to breakdown of skin: Status: Acute (6) [place]: Status: Acute (7) Venous insufficiency: Status: Acute Plan Acute calculus cholecystitis Sepsis related to cholecystitis Criteria met with tachypnea tachycardia and leukocytosis Check lactic acid, BNP, TSH and requested echo as preoperative work-up No previous history of [place] coronary disease or CHF Bilateral lower extremity swelling could be related to amlodipine Hold and evidence of regimen I would use IV labetalol for as needed usage Continue normal saline No active chest pain EKG without ischemic or infarct changes Type 2 diabetes patient takes Lantus twice daily, I would cut back his Lantus dose to lower dose and once a day Accu-Cheks every 4 hours Patient does not carry history of pulmonary hypertension he takes tadalafil for ED Patient take Lasix for lower extremity swelling which I think is related to amlodipine Full code Low-fat diet today, plan for surgery tomorrow N.p.o. after midnight Preoperative clearance Considering age, use of insulin, he will be considered moderate RCRI class II for the complications during perioperative period. I have requested BNP, echo TSH Patient does not use oxygen at home does not carry history of family hypertension I would definitely review his echo report before proceeding with surgery Requested echo as stat Attestations Medical Necessity Statement*: Greater than than 2 midnights anticipated for sepsis, surgery for cholecystitis Time Spent in Patient Care: 40 Coding Level of Care Code Acute [employer] [facility] Fwd Diagnoses Acute cholecystitis K81.0 Diabetes mellitus E11.9 Mass of right kidney N28.89 Callus of foot L84 Chronic ulcer of great toe of right foot, limited to breakdown of skin L97.511 Hammertoe M20.40 Venous insufficiency I87.2
--- NOTE | 2021-09-18 17:29 | USCV_ITS ---
Andrés Dumont Age: 76 Gender: M : 1945 Exam Date: 09/18/2021 18:49 Ordering Phys: Hermila Hung MD Technologist: GERMAINE [place] [facility] [place]: chf, pre-op gallbladder clearnce. No hx cardiac intervention per patient. BP: 140 / 76 HR: 92 Rhythm: Atrial fibrillation Technical Quality: Adequate MEASUREMENTS (Male / Female) Normal Values 2D ECHO LV Diastolic Diameter PLAX 3.5 cm 4.2 - 5.9 / 3.9 - 5.3 cm LV Systolic Diameter PLAX 2.4 cm IVS Diastolic Thickness 2.0 cm 0.6 - 1.0 / 0.6 - 0.9 cm IVS Systolic Thickness 1.9 cm LVPW Diastolic Thickness 2.0 cm 0.6 - 1.0 / 0.6 - 0.9 cm LVPW Systolic Thickness 2.2 cm LVOT Diameter 2.0 cm LV Ejection Fraction 2D Teich 59.0 % LV Ejection Fraction MOD 2C 63.0 % LV Ejection Fraction 2C AL 63.2 % LA Diameter 5.1 cm LA Width 4.1 cm LA Height 7.0 cm RA Width 4.6 cm RA Height 6.4 cm Aorta at Sinotubular Diameter 3.0 cm M-MODE Aortic Annulus Diameter 3.0 cm LA Ao Ratio MM 1.7 MV E Point Septal Separation 0.2 cm DOPPLER AV Peak Velocity 136.0 cm/s LVOT Peak Velocity 116.0 cm/s AV Area Cont Eq vti 2.7 cm squared AV Area Cont Eq pk 2.8 cm squared MV Peak Velocity 109.0 cm/s MV Area PHT 3.3 cm squared MV E' Velocity 62.0 cm/s Mitral E to MV E' Ratio 11.7 Mitral E to LV E' Lateral Ratio 11.9 Mitral E to LV E' Septal Ratio 11.6 TR Peak Velocity 249.7 cm/s TR Peak Gradient 24.9 mmHg TV Peak E Velocity 79.0 cm/s Right Atrial Pressure 10.0 mmHg Pulmonary Artery Systolic Pressu 34.9 mmHg PV Peak Velocity 103.0 cm/s RV Acceleration Time 0.1 s RV Ejection Time 0.2 s RV AcT/ET 0.4 FINDINGS Left Ventricle Normal left ventricular size. LV systolic function is normal with EF of 55-60%. No regional wall motion abnormalities. Diastolic function is indeterminate because of atrial fibrillation Right Ventricle The right ventricle is normal in size and function. Right Atrium The right atrium is normal in size. Left Atrium The left atrium is dilated Mitral Valve Structurally normal mitral valve without significant stenosis or prolapse. There is no mitral regurgitation. Aortic Valve Grossly normal. No significant stenosis. There is mild aortic regurgitation. Tricuspid Valve Structurally normal tricuspid valve without significant stenosis. Mild tricuspid regurgitation. Insufficient TR jet to calculate RVSP Pulmonic Valve Trace pulmonic regurgitation Pericardium Normal pericardium without effusion. Aorta Normal ascending aorta dimension. IVC CONCLUSIONS Technically limited quality echocardiogram because of poor ultrasonic windows. LV systolic function is normal with EF 55 to 60%. Diastolic function is indeterminate because of atrial fibrillation. Left atrium is dilated. Mild aortic regurgitation. Mild tricuspid regurgitation. Trace pulmonic regurgitation. No comparison studies are available Duane Mccullough MD (Electronically Signed) Final Date: 19 September 2021 11:50 S
[2021-09-18 19:03] LABS: Lactic Acid level (Lactate) 1.7 mmol/L (0.5-2.2)
[2021-09-18 19:35] LABS: NT Pro B Type Natriuretic Pept 1353 pg/mL (0-450)
[2021-09-18] MEDS: pantoprazole DR 40 mg Tablet PO (19:41)
[2021-09-18] MEDS: sodium chloride 0.9% 1,000 ML 75 ML IV (19:42)
--- NOTE | 2021-09-18 19:50 | ECG_ITS ---
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 Measurements Intervals [place] Rate: 104 P: [place]: QRS: -42 QRSD: 95 T: 31 QT: 343 QTc: 451 Interpretive Statements ATRIAL FIBRILLATION WITH RAPID VENTRICULAR RESPONSE LOW QRS VOLTAGE IN EXTREMITY LEADS [QRS DEFLECTION < 0.5 mV IN LIMB LEADS] PATTERN CONSISTENT WITH PULMONARY DISEASE SEPTAL MYOCARDIAL INFARCTION , PROBABLY OLD [40+ ms Q WAVE IN V1/V2] INFERIOR MYOCARDIAL INFARCTION , PROBABLY OLD [40+ ms Q WAVE AND/OR ST/T ABNORMALITY IN II/aVF] Compared to ECG 09/18/2021 15:49:16 Low QRS voltage now present Left anterior fascicular block no longer present Myocardial infarct finding still present Electronically Signed On 09-19-2021 19:01:48 CDT by Duane Mccullough M.D. [id number]
[2021-09-18 20:17] VITALS: BP 157/77; PULSE 102; RESP 18; TEMP 36.7; O2SAT 96
[2021-09-18 20:49] LABS: Glucose Point of Care 147 mg/dL (70-110)
[2021-09-18 21:19] VITALS: PULSE 99; RESP 15; O2SAT 96
[2021-09-18 21:47] LABS: Lactate (Lactic Acid level) 1.2 mmol/L (0.5-2.2)
[2021-09-18 21:48] LABS: Troponin 5 6HR 25.07 ng/L (0-15)
--- NOTE | 2021-09-18 21:53 | PM.CONSULT ---
Providers/Reason For Consult Consulting Physician/Specialty*: Dr. Kaleb Albarado DO Reason for Consult*: Abdominal pain Attending Physician: Hermila Hung MD Primary Care Provider: Humberto Griggs DO History of Present Illness History of Present Illness Andrés Dumont is a 76 year old male who presented to the hospital with a 3-day history of right upper quadrant abdominal pain radiating to his back. Eating and palpation make the pain worse. Nothing makes the pain better. The pain is crampy to sharp and constant. He has associated nausea but no emesis. Denies diarrhea, constipation, hematochezia and/or melena. Review of Systems General: Reports: 10 or more systems reviewed and unremarkable except in HPI and below Medications/Allergies Home Medications Medication Instructions Recorded Confirmed Last Taken Type amlodipine 10 mg tablet 10 mg PO DAILY 12/22/19 09/18/21 09/18/21 History triamterene 75 1 tab PO DAILY 12/22/19 09/18/21 09/18/21 History mg-hydrochlorothiazide 50 mg tablet insulin glargine 100 unit/mL 30 unit SUBCUT BID ml 10/31/20 09/18/21 09/18/21 History subcutaneous solution (Lantus U-100 Insulin) rosuvastatin 40 mg tablet 40 mg PO DAILY 10/31/20 09/18/21 09/17/21 History pantoprazole 40 mg tablet,delayed 40 mg PO BID tab 11/19/20 09/18/21 09/18/21 History release triamcinolone acetonide 0.1 % 1 applic TOPICAL BID #453.6 g 02/21/21 09/18/21 Unknown Rx topical ointment cam boot #1 ea 03/28/21 09/18/21 Unknown Rx mupirocin 2 % topical ointment 1 applic TOPICAL BID 14 Days #22 g 07/29/21 09/18/21 Unknown Rx allopurinol 100 mg tablet 100 mg PO DAILY 09/18/21 09/18/21 09/18/21 History calcitriol 0.25 mcg capsule See Rx Instructions .ROUTE .COMPLEX 09/18/21 09/18/21 09/17/21 History fluticasone propionate 50 2 spray INTRANASAL DAILY PRN 09/18/21 09/18/21 Unknown History mcg/actuation nasal spray,suspension furosemide 20 mg tablet (Lasix) 20 mg PO DAILY 09/18/21 09/18/21 09/18/21 History glipizide 10 mg tablet, extended 10 mg PO DAILY 09/18/21 09/18/21 09/18/21 History release 24 hr levocetirizine 5 mg tablet (Xyzal) 5 mg PO DAILY 09/18/21 09/18/21 09/18/21 History lisinopril 40 mg tablet 40 mg PO DAILY 09/18/21 09/18/21 09/18/21 History magnesium 250 mg tablet 250 mg PO DAILY 09/18/21 09/18/21 09/18/21 History potassium chloride 20 mEq 20 meq PO DAILY 09/18/21 09/18/21 09/18/21 History tablet,extended release sildenafil (pulm.hypertension) 20 See Rx Instructions .ROUTE 09/18/21 09/18/21 Unknown History mg tablet .COMPLEX PRN Allergies Allergy/AdvReac Type Severity Reaction Status Date / Time lovastatin Allergy RASH Verified 08/20/21 10:32 Current Medications Generic Name Dose Route Start Last Admin Trade Name Freq PRN Reason Stop Dose Admin Sodium Chloride 1,000 mls @ 75 mls/hr 09/18/21 18:32 09/18/21 19:42 Sodium Chloride 0.9% IV 75 mls/hr .[id number] SAHIL Administration Piperacillin Sod/Tazobactam 50 mls @ 12.5 mls/hr 09/18/21 18:32 09/18/21 19:42 Sod 3.375 gm/ Sodium Chloride IV 12.5 mls/hr Q8H SAHIL Administration Protocol Insulin Glargine 20 unit 09/18/21 21:00 09/18/21 20:57 Insulin Glargine 100 Units/1 Ml SUBCUT Not Given BEDTIME SAHIL Insulin Human Lispro 0 unit 09/18/21 18:32 09/18/21 19:09 Insulin Lispro 100 Unit/1 Ml SUBCUT Not Given TIDWM SAHIL Protocol Pantoprazole Sodium 40 mg 09/18/21 18:32 09/18/21 19:[address] 40 Mg Tablet PO 40 mg BID SAHIL Administration PFSH Acute PFSH: Medical History Acute cystitis with hematuria Diabetes mellitus GERD (gastroesophageal reflux disease) Prostatitis, acute Venous insufficiency Surgical History H/O esophagogastroduodenoscopy (12/13/20) normal Hx of tonsillectomy Status post colonoscopy (12/13/20) descending colon polyp Status post right inguinal hernia repair Family History Mother , AT AGE 73 Cancer COLON Father , AT AGE 50 Diabetes Social History Smoking and tobacco status: former smoker Alcohol intake: never Current occupational status: retired History of recent travel: No Vitals/I&O/Wt Last Vital Signs Temp 98.1 F 09/18/21 20:17 Pulse 99 09/18/21 21:19 Resp 15 09/18/21 21:19 BP 157/77 09/18/21 20:17 Pulse Ox 96 09/18/21 21:19 09/18/21 09/18/21 09/18/21 06:59 14:59 22:59 Intake Total 3533.9 / 3533.9 Balance 3533.9 / 3533.9 Weight last 48 hrs Weight 245 lb Physical Exam Narrative: General : Patient is well developed , no acute distress, oriented x3 Head : Normal cephalic, a-traumatic. Ears : Pinnae and external canal are normal. Hearing is normal. Eyes : PERRLA, Sclera and injection are normal. No conjunctival discharge. Nose : Mucous membranes are without erythema. Throat : buccal mucosa is normal, gums are without significant recession or hypertrophy. Lungs : Equal chest rise bilaterally, no use of accessory muscles, trachea is midline. Cor : Rate and rhythm are normal. Abdomen : Soft, ND, tender right upper quadrant negative Cano's, no g/r/m Extremities : No edema, no cyanosis or clubbing, dorsalis pedis pulses are present bilaterally, non-tender to palpation of calves. Upper extremities are normal bilaterally. Back : non-tender to palpation, no CVA tenderness. Neuro : CN II - XII intact, Upper and lower extremities have equal and full strength Data : 09/19/21 05:00 09/19/21 05:00 Micro: Microbiology 09/18/21 15:31 Blood Culture - Preliminary Blood SPECIMEN COLLECTED 09/18/21 15:28 Blood Culture - Preliminary Blood SPECIMEN COLLECTED A&P Assessment and plan (1) Acute cholecystitis: Status: Acute Plan Antibiotics N.p.o. after midnight Laparoscopic cholecystectomy tomorrow The risks and benefits of the procedure, including but not limited to, bleeding, infection, scar, numbness, pain, damage to surrounding structures, damage to common bile duct requiring additional surgery, conversion to an open procedure, were explained to the patient. He is understanding of the risks and wishes to proceed. Coding Level of Care Code Acute Electronic Engineering Technician for Lois Greco Diagnoses Acute cholecystitis K81.0
[2021-09-18 22:02] LABS: Thyroid Stimulating Hormone 3.01 uIU/mL (0.27-4.20)
[2021-09-19] VITALS (19 sets, daily range): BP systolic 118–155; BP diastolic 66–91; PULSE 89–111; RESP 6–24; TEMP 36.6–37.6; O2SAT 90–95
[2021-09-19] MEDS: piperacillin-tazobactam 3.375 GM in sodium chloride 0.9% (plus) 50 ML IV ×3 (01:50→18:28)
[2021-09-19] MEDS: HYDROmorphone 1 mg/mL INJ 1 mL 0.2 MG IVP (05:03)
[2021-09-19 05:07] LABS: Basophils % 0.1 %; Eosinophils % 0.1 %; Hematocrit 38.5 % (42.0-52.0); Hemoglobin 13.1 g/dL (11.7-16.6); Lymphocytes # 0.9 10^3/uL (0.8-4.8); Mean Corpuscular Hemoglobin 29.6 pg (28.0-34.0); Mean Corpuscular Volume 87.1 fl (80-94); Monocytes # 2.2 10^3/uL (0.2-0.9); Monocytes % 10.2 %; Neutrophils # 18.57 10^3/uL (1.8-7.7); Neutrophils % 84.9 %; Nucleated Red Blood Cells % 0 %; Platelet Count 276 10^3/cmm (130-400); Red Blood Count 4.42 10^6/uL (4.1-5.3); Red Cell Distribution Width 14.2 % (12.1-15.1); White Blood Count 21.9 10^3/uL (4.0-10.0)
[2021-09-19 05:28] LABS: Alanine Aminotransferase 29 U/L (0-41); Albumin Level 2.7 g/dL (3.5-5.2); Alkaline Phosphatase 307 IU/L (40-130); Anion Gap 15.1 (5-19); Aspartate Amino Transferase 17 U/L (0-40); Blood Urea Nitrogen 26 mg/dL (8-23); Calcium 8.6 mg/dL (8.5-10.5); Carbon Dioxide 25 mmol/L (22-29); Chloride 95 mmol/L (98-107); Glucose 148 mg/dL (65-115); Magnesium 1.6 mg/dL (1.7-2.3); Osmolality Calculated 282 mOsm/kg (285-295); Potassium 3.1 mmol/L (3.5-5.1); Sodium 132 mmol/L (136-145); Total Bilirubin 1.4 mg/dL (0.15-1.2); Total Protein 6.7 g/dL (6.6-8.7)
[2021-09-19 05:33] LABS: Procalcitonin 1.08 ng/mL (0-0.5)
--- NOTE | 2021-09-19 08:16 | P.PN_ITS ---
Subjective Subjective: Leukocytosis improving Afebrile Patient is n.p.o. No active abdominal complaint He wanted to use urinal Doing well on room air No overnight events Plan for surgery around afternoon Vitals/I&O/Wt Last Vital Signs Temp 98 F 09/19/21 07:52 Pulse 97 09/19/21 07:52 Resp 13 09/19/21 07:52 BP 125/74 09/19/21 07:52 Pulse Ox 93 09/19/21 07:52 09/18/21 09/19/21 09/19/21 22:59 06:59 14:59 Intake Total 3583.9 / 3583.9 50 / 3633.9 Output Total 250 / 250 Balance 3333.9 / 3333.9 50 / 3383.9 Weight last 48 hrs Weight 111.13 kg Physical Exam Narrative: Patient lying supine No abdominal pain No Cano sign elicited No signs of edema Distended abdomen, soft visceral obesity S1, S2 Saturating well on room air Nonfocal neuro exam Pleasant and cooperative EOMI, PERRLA Data : 09/19/21 05:00 09/19/21 05:00 Micro: Microbiology 09/18/21 15:31 Blood Culture - Preliminary Blood SPECIMEN COLLECTED 09/18/21 15:28 Blood Culture - Preliminary Blood SPECIMEN COLLECTED A&P Assessment and plan (1) Acute cholecystitis: Status: Acute (2) Diabetes mellitus: Status: Acute (3) Callus of foot: Status: Acute (4) Chronic ulcer of great toe of right foot, limited to breakdown of skin: Status: Acute (5) Hammertoe: Status: Acute (6) Diabetic peripheral neuropathy associated with type 2 diabetes mellitus: Status: Acute (7) Venous insufficiency: Status: Acute Plan Acute cholecystitis Plan for surgery this afternoon Patient is n.p.o. Leukocytosis improving Afebrile Continue IV fluids and antibiotics Pain well managed Bowel regimen added Awaiting echo nonsignificant EKG changes Holding lisinopril Type 2 diabetes currently euglycemic Full code DVT prophylaxis on hold Attestations Medical Necessity Statement*: Surgery today Time Spent in Patient Care: 30 Coding Level of Care Code Acute Sustainability Purchasing Agent for g Fwd Diagnoses Acute cholecystitis K81.0 Diabetes mellitus E11.9 Callus of foot L84 Chronic ulcer of great toe of right foot, limited to breakdown of skin L97.511 Hammertoe M20.40 Diabetic peripheral neuropathy associated with type 2 diabetes mellitus E11.42 Venous insufficiency I87.2
[2021-09-19] MEDS: insulin lispro 100 unit/1 mL SUBCUT (08:46)
[2021-09-19] MEDS: amlodipine 10 mg Tablet PO (08:47)
[2021-09-19] MEDS: pantoprazole DR 40 mg Tablet PO ×2 (08:47→18:29)
[2021-09-19] MEDS: allopurinol 100 mg Tablet PO (08:47)
[2021-09-19] MEDS: potassium chloride ER 20 mEq Tablet 40 MEQ PO (08:47)
[2021-09-19] MEDS: sodium chloride 0.9% 1,000 ML 75 ML IV (08:53)
--- NOTE | 2021-09-19 09:22 | W.PM.OPSUD ---
Surgery/Procedure H&P Update DATE OF PROCEDURE: September 19, 2021 DATE H&P PERFORMED: 09/18/21 PREOP DIAGNOSIS: panendoscopy PLANNED PROCEDURE: Operation Date: 09/19/21 13:15 Proposed Procedures p Laparoscopic Cholecystectomy(Not Applicable) - Kaleb Albarado DO
[2021-09-19] MEDS: lidocaine 1% 5 ML in potassium chloride premix 100 ML 50 ML IV (09:30)
--- NOTE | 2021-09-19 10:28 | PC.CHAP ---
Pastoral Care Encounter/Spiritual Assessment Type of Contact [] Declined airline flight attendant visit [] Patient/Family/Request visit [] Outpatient visit [] Follow-up visit [] Physician referral [] Code/Alert [] Routine visit [] Staff referral [] Actively dying [] Patient sleeping [] Family support [] [] Out of room [] Palliative care [] [] Receiving care in room [] Pre-surgical visit [] Trauma [] Long length of stay [] ICU visit [x] Other: Isolation Relational/Emotional Strength [] Patient feels connected with others/family/visitors/staff [] Distress [] Loneliness/isolation [] Abandonment Spirituality of Patient [] Person of Marta [] Attends Caodaism of their Marta [] Believes in Prayer [] Reads Bible or Restorationist materials [] There are Spiritual issues to be addressed Scale Model Maker Interventions [] Prayer [] Active listening [] Non-anxious presence [] Spiritual/emotional support [] Crisis/trauma care [] Spiritual counseling [] Bereavement support [] Provided bereavement packet [] Provided Bible/devotional materials [] Provided toy/stuffed animal, coloring book to patient or family member [] Provided Communion [] Anointing/[place] [] Salvation [] Completed spiritual assessment [] Other: Impact on Illness or Injury [] Angry [] Fearful [] Anxious [] Often cries [] Exhaustion [] Unable to work [] Unable to attend tenriism [] Unable to walk/stand [] Unable to read [] Unable to drive [] Unable to eat/drink [] Unable to sleep [] Unable to be with family [] Patient intubated [] Other: Summary Isolation Time spent with patient 5 mins
--- NOTE | 2021-09-19 13:22 | P.ANESASSM_ITS ---
Pre-Anesthetic Assessment Height/Weight: Height 1.88 m Weight 111.13 kg Temp Pulse Resp BP Pulse Ox 98 F 102 H 15 125/74 95 09/19/21 07:52 09/19/21 09:50 09/19/21 09:50 09/19/21 07:52 09/19/21 09:50 Preop Diagnosis: panendoscopy Operation Date: 09/19/21 13:15 Proposed Procedures p Laparoscopic Cholecystectomy(Not Applicable) - Kaleb Albarado, DO Familial anesthetic complications: none Was Beta Bam taken within 24 hours: N/A Was Clonidine taken within 24 hours: N/A Social No alcohol and No tobacco Exam alert, oriented x 3, clear to auscultation bilaterally and regular rate & rhythm Airway Submandibular: within normal limits Cervical ROM: within normal limits Mallampati: Class II Dentition: partials Pulmonary None reported CV/HEM Atrial Fibrillation, Hypertension, Murmur and Peripheral Vascular Disease METS = 4 EKG 09/18/21 Interpretive Statements ATRIAL FIBRILLATION WITH RAPID VENTRICULAR RESPONSE LOW QRS VOLTAGE IN EXTREMITY LEADS? [QRS DEFLECTION < 0.5 mV IN LIMB LEADS] PATTERN CONSISTENT WITH PULMONARY DISEASE SEPTAL MYOCARDIAL INFARCTION , PROBABLY OLD [40+ ms Q WAVE IN V1/V2] INFERIOR MYOCARDIAL INFARCTION , PROBABLY OLD [40+ ms Q WAVE AND/OR ST/T ABNORMALITY IN II/aVF] Compared to ECG 09/18/2021 15:49:16 Low QRS voltage now present Left anterior fascicular block no longer present Myocardial infarct finding still present [id number] TTE 09/18/21 CONCLUSIONS ?Technically limited quality echocardiogram because of poor ?ultrasonic windows. ?LV systolic function is normal with EF 55 to 60%. ?Diastolic function is indeterminate because of atrial ?fibrillation. ?Left atrium is dilated. ?Mild aortic regurgitation. ?Mild tricuspid regurgitation. ?Trace pulmonic regurgitation. ?No comparison studies are available hx of prostatitis right kidney mass Na 132 K 3.1 Chloride 95 Acute vs chronic renal disease GI Gastroesophageal Reflux Disease (well controlled ) Acute cholecystitis Metabolic Diabetes Mellitus Musc/skel Osteoarthritis/DJD Neuropsych Neuropathy Anesthetic Plan ASA status: 3 (76 year old male with atrial fibrillation, mild aortic and tricuspid reguritation with diabetic neuropathy and acute cholecystitis ) Anesthesia: Anesthesia Evaluation and General Other: We discussed risk and benefits of general anesthesia including PONV, sore throat (sometimes severe), corneal abrasion, positioning and peripheral nerve injuries, life threatening allergic reaction, post operative ICU admission requiring prolonged intubation, aspiration, stroke, heart attack, , and rare incidences of recall. Patient consents to proceed with general anesthesia. Risk of > 500 ml blood loss (7ml/kg in children): No Other Pertinent Information Declines blood for anglican beliefs Medications/Allergies Home Medications Medication Instructions Recorded Confirmed Last Taken Type amlodipine 10 mg tablet 10 mg PO DAILY 12/22/19 09/18/21 09/18/21 History triamterene 75 1 tab PO DAILY 12/22/19 09/18/21 09/18/21 History mg-hydrochlorothiazide 50 mg tablet insulin glargine 100 unit/mL 30 unit SUBCUT BID ml 10/31/20 09/18/21 09/18/21 History subcutaneous solution (Lantus U-100 Insulin) rosuvastatin 40 mg tablet 40 mg PO DAILY 10/31/20 09/18/21 09/17/21 History pantoprazole 40 mg tablet,delayed 40 mg PO BID tab 11/19/20 09/18/21 09/18/21 History release triamcinolone acetonide 0.1 % 1 applic TOPICAL BID #453.6 g 02/21/21 09/18/21 Unknown Rx topical ointment cam boot #1 ea 03/28/21 09/18/21 Unknown Rx mupirocin 2 % topical ointment 1 applic TOPICAL BID 14 Days #22 g 07/29/21 09/18/21 Unknown Rx allopurinol 100 mg tablet 100 mg PO DAILY 09/18/21 09/18/21 09/18/21 History calcitriol 0.25 mcg capsule See Rx Instructions .ROUTE .COMPLEX 09/18/21 09/18/21 09/17/21 History fluticasone propionate 50 2 spray INTRANASAL DAILY PRN 09/18/21 09/18/21 Unknown History mcg/actuation nasal spray,suspension furosemide 20 mg tablet (Lasix) 20 mg PO DAILY 09/18/21 09/18/21 09/18/21 History glipizide 10 mg tablet, extended 10 mg PO DAILY 09/18/21 09/18/21 09/18/21 History release 24 hr levocetirizine 5 mg tablet (Xyzal) 5 mg PO DAILY 09/18/21 09/18/21 09/18/21 History lisinopril 40 mg tablet 40 mg PO DAILY 09/18/21 09/18/21 09/18/21 History magnesium 250 mg tablet 250 mg PO DAILY 09/18/21 09/18/21 09/18/21 History potassium chloride 20 mEq 20 meq PO DAILY 09/18/21 09/18/21 09/18/21 History tablet,extended release sildenafil (pulm.hypertension) 20 See Rx Instructions .ROUTE 09/18/21 09/18/21 Unknown History mg tablet .COMPLEX PRN Allergies Allergy/AdvReac Type Severity Reaction Status Date / Time lovastatin Allergy RASH Verified 08/20/21 10:32 Current Medications Generic Name Dose Route Start Last Admin Trade Name Freq PRN Reason Stop Dose Admin Allopurinol 100 mg 09/19/21 09:00 09/19/21 08:47 Allopurinol 100 Mg Tablet PO 100 mg DAILY SAHIL Administration Amlodipine Besylate 10 mg 09/19/21 09:00 09/19/21 08:47 Amlodipine 10 Mg Tablet PO 10 mg DAILY SAHIL Administration Hydromorphone HCl 0.2 mg 09/18/21 18:32 09/19/21 05:03 Hydromorphone 1 Mg/Ml Inj 1 Ml IVP 0.2 mg Q4H PRN Administration pain Sodium Chloride 1,000 mls @ 75 mls/hr 09/18/21 18:32 09/19/21 08:53 Sodium Chloride 0.9% IV 75 mls/hr .[id number] SAHIL Administration Piperacillin Sod/Tazobactam 50 mls @ 12.5 mls/hr 09/18/21 18:32 09/19/21 11:49 Sod 3.375 gm/ Sodium Chloride IV 12.5 mls/hr Q8H SAHIL Administration Protocol Insulin Glargine 20 unit 09/18/21 21:00 09/18/21 20:57 Insulin Glargine 100 Units/1 Ml SUBCUT Not Given BEDTIME [facility] Insulin Human Lispro 0 unit 09/18/21 18:32 09/19/21 08:46 Insulin Lispro 100 Unit/1 Ml SUBCUT 4 unit TIDWM [facility] Administration Protocol Pantoprazole Sodium 40 mg 09/18/21 18:32 09/19/21 08:[address] 40 Mg Tablet PO 40 mg BID SAHIL Administration PFSH Anesthesia Medical History Acute cystitis with hematuria Diabetes mellitus GERD (gastroesophageal reflux disease) Prostatitis, acute Venous insufficiency Surgical History H/O esophagogastroduodenoscopy (12/13/20) normal Hx of tonsillectomy Status post colonoscopy (12/13/20) descending colon polyp Status post right inguinal hernia repair Family History Mother , AT AGE 73 Cancer COLON Father , AT AGE 50 Diabetes Social History Smoking and tobacco status: former smoker Alcohol intake: never Current occupational status: retired History of recent travel: No Data Anesthesia : 09/19/21 05:00 09/19/21 05:00 Short CBC 09/18/21 09/19/21 Range/Units 13:37 05:00 WBC 26.1 H 21.9 H (4.0-10.0) 10^3/uL Hgb 15.4 13.1 (11.7-16.6) g/dL Hct 45.7 38.5 L (42.0-52.0) % MCV 88.4 87.1 (80-94) fl Plt Count 319 276 (130-400) 10^3/cmm Neut % (Auto) 83.5 84.9 % Neut # (Auto) 21.80 H 18.57 H (1.8-7.7) 10^3/uL BMP 09/18/21 09/19/21 13:37 05:00 Sodium 129 L 132 L Potassium 3.6 3.1 L Chloride 87 L 95 L Carbon Dioxide 28 25 BUN 30 H 26 H Creatinine 1.6 H 1.5 H Glucose 220 H 148 H Calcium 9.3 8.6 Cardiac Enzymes 09/18/21 09/18/21 09/18/21 Range/Units 15:28 15:28 18:04 Troponin T Baseline 30 H (0-15) ng/L Troponin T 120 Minute 28.70 H (0-15) ng/L Delta Troponin T -1.30 L (0-10) ABS# Troponin T Hi Sens 6Hr (0-15) ng/L Troponin T Hi Sens 6Hr Delta (0-12) ng/L NT-Pro-B Natriuret Pep 1353 H (0-450) pg/mL 09/18/21 Range/Units 21:13 Troponin T Baseline (0-15) ng/L Troponin T 120 Minute (0-15) ng/L Delta Troponin T (0-10) ABS# Troponin T Hi Sens 6Hr 25.07 H (0-15) ng/L Troponin T Hi Sens 6Hr Delta -4.93 L (0-12) ng/L NT-Pro-B Natriuret Pep (0-450) pg/mL Liver Function 09/18/21 09/19/21 Range/Units 13:37 05:00 Total Bilirubin 1.5 H 1.4 H (0.15-1.2) mg/dL AST 31 17 (0-40) U/L ALT 45 H 29 (0-41) U/L Alkaline Phosphatase 396 H 307 H (40-130) IU/L Albumin 3.3 L 2.7 L (3.5-5.2) g/dL Urine 09/18/21 Range/Units 13:50 Urine Color Yellow (Yellow) Urine Appearance Clear (CLEAR) Urine pH 6 (5-7) Ur Specific [place] 1.005 (1.005-1.030) Urine Protein 2+ H (Negative) Urine Glucose (UA) Norm (Normal) Urine Ketones Negative (Negative) Urine Nitrate Negative (Negative) Urine Bilirubin Neg (Negative) Ur Leukocyte Esterase Negative (Negative) Urine RBC 0-4 H (0-2) /hpf Urine WBC 0-4 H (0-5) /hpf Microbiology 09/18/21 15:31 Blood Culture - Preliminary Blood SPECIMEN COLLECTED 09/18/21 15:28 Blood Culture - Preliminary Blood SPECIMEN COLLECTED Cardiac Studies: Echocardiogram 09/18/21
[2021-09-19 14:16] LABS: Glucose Point of Care 95 mg/dL (70-110)
[2021-09-19] MEDS: sodium chloride 0.9% 1,000 ML 30 ML IV (14:22)
--- NOTE | 2021-09-19 15:37 | PC.NURSE ---
To OR on 1344
--- NOTE | 2021-09-19 17:17 | P.OP_ITS ---
Operative Report Date of procedure: September 19, 2021 Pre-op diagnosis: Preop Diagnosis acute cholecystitis Post-op diagnosis: same Procedure done: Laparoscopic cholecystectomy Specimens removed/disposition: Gallbladder Surgeon: Dr. Kaleb Albarado DO Anesthesia: General Estimated blood loss: 20 Complications: None apparent Findings: Very inflamed, hydropic and infected gallbladder Brief History: Patient came in with abdominal pain and was found to have acute cholecystitis Procedure: Patient was wheeled into the operative room and placed on the OR table in a supine position. Abdomen was inspected prepped and draped in usual sterile fashion. Time-out was performed and all present were in agreement. A 15 blade scalp was used to make a stab incision in the left upper quadrant and intra- abdominal insufflation was achieved using a Veress needle. After localizing the tissue incisions were made and a 5 millimeter trocar was placed into the umbilicus as well as 2 in the right upper quadrant. A 12 millimeter trocar was placed in the epigastrium. Gallbladder was grasped and elevated. This was difficult as the gallbladder was hydropic. The triangle of Calot was carefully dissected using blunt dissection and electrocautery until the triangle of Calot clearly identified. The cystic duct was clipped proximally and double clipped distally. The duct was then ligated proximally. The cystic artery was doubly clipped and ligated. The gallbladder was then removed from the liver bed using electrocautery. There was purulence between the gallbladder and the liver bed. The gallbladder was removed from the abdomen using an Endo-Catch bag through the epigastric incision. The liver bed was inspected and no bleeding was seen. The abdomen was irrigated and suctioned. A 19 [place] drain was placed into Morison's pouch. All ports removed. Skin was washed and dried. Incisions were closed with 3-0 nylon in a simple fashion. Sterile bandages were applied. Patient tolerated the procedure well.
--- NOTE | 2021-09-19 17:17 | ANE.PACU2 ---
Inpatient post-anesthesia follow up: Airway intact: Yes Vital signs: Temperature 99.7 F Pulse Rate 89 Respiratory Rate 21 Blood Pressure 139/88 Pulse Oximetry 93 Oxygen Delivery Me thod Room Air Oxygen Flow Rate 6 Fraction of Inspir ed Oxygen Hydration adequate: Yes Nausea and vomiting: No Pain level: 3 Mental status: Baseline
[2021-09-19 17:25] LABS: Glucose Point of Care 117 mg/dL (70-110)
--- NOTE | 2021-09-19 17:51 | ECG_ITS ---
[facility] Test Date: 2021-09-19 Pat Name: Andrés Dumont Department: Room: 258 Gender: Male Drill Doctor: : 1945 Requested By: Hermila Hung Order Number: [id number] Twila MD: Duane Mccullough M.D. Measurements Intervals Howard Rate: 103 P: MN: QRS: -46 QRSD: 101 T: 28 QT: 371 QTc: 487 Interpretive Statements ATRIAL FIBRILLATION WITH RAPID VENTRICULAR RESPONSE LOW QRS VOLTAGE IN EXTREMITY LEADS [QRS DEFLECTION < 0.5 mV IN LIMB LEADS] PATTERN CONSISTENT WITH PULMONARY DISEASE LEFT ANTERIOR FASCICULAR BLOCK [QRS AXIS <= -45, QR IN I, RS IN II] SEPTAL MYOCARDIAL INFARCTION , PROBABLY OLD [40+ ms Q WAVE IN V1/V2] INFERIOR MYOCARDIAL INFARCTION , PROBABLY OLD [40+ ms Q WAVE AND/OR ST/T ABNORMALITY IN II/aVF] Compared to ECG 09/18/2021 20:47:10 Left anterior fascicular block now present Myocardial infarct finding still present Electronically Signed On 09-19-2021 18:53:23 CDT by Duane Mccullough M.D. [id number]
--- NOTE | 2021-09-19 18:12 | PC.NURSE ---
report given reporting patient in a fib with hr of 89. Physician notified. Orders given for stat ekg . Results of ekg sent to physician of afib with rvr hr of 103. No new orders given at this time. Patient is asymptomatic, no s/s of chest pain.
--- NOTE | 2021-09-19 18:13 | USR_ITS ---
PROCEDURE INFORMATION: Exam: US Duplex Lower Extremity Veins, Bilateral Exam date and time: 09/19/2021 6:47 PM Age: 76 years old Clinical indication: Screening exam; S/P lapchole today, at risk for dvt, no pulmonary embolus at this time. Prior surgery; Surgery date: Post-operative (0-2 days); Patient HX: No HX dvt per patient, no le edema or erythema or pain; Additional info: At risk for pe TECHNIQUE: Imaging protocol: Real-time Duplex ultrasound of the bilateral extremities with 2-D callaway scale, color Doppler flow and spectral waveform analysis with image documentation. Complete exam focused on the bilateral lower extremity veins. COMPARISON: No relevant prior studies available. FINDINGS: Right deep veins: The common femoral, femoral, proximal profunda femoral, popliteal, and posterior tibial veins are patent without thrombus. Normal compressibility and/or augmentation response. Right superficial veins: Saphenofemoral junction is patent without thrombus. Left deep veins: The common femoral, femoral, proximal profunda femoral, popliteal and posterior tibial veins are patent without thrombus. Normal compressibility and/or augmentation response. Left superficial veins: Saphenofemoral junction is patent without thrombus. Soft tissues: Unremarkable as visualized. US/[place] [id number] IMPRESSION: No evidence for deep venous thrombosis.
[2021-09-19] MEDS: enoxaparin 120 mg/0.8 mL Syringe 110 MG SUBCUT (18:27)
[2021-09-19 19:09] LABS: D Dimer 3.36 ug/mIFEU (0-0.59)
[2021-09-19] MEDS: morphine 4 mg/mL SDV 1 mL IVP (20:09)
[2021-09-19 20:47] LABS: Glucose Point of Care 183 mg/dL (70-110)
[2021-09-19] MEDS: insulin glargine 100 units/1 mL 20 UNIT SUBCUT (20:57)
[2021-09-19] MEDS: metoprolol tartrate 25 mg Tablet PO (21:46)
[2021-09-20] VITALS (10 sets, daily range): BP systolic 111–145; BP diastolic 54–81; PULSE 68–96; RESP 15–20; TEMP 36.4–37; O2SAT 91–96
[2021-09-20 02:06] LABS: Basophils % 0.2 %; Hematocrit 37.8 % (42.0-52.0); Hemoglobin 13.1 g/dL (11.7-16.6); Lymphocytes # 0.6 10^3/uL (0.8-4.8); Lymphocytes % 3.2 %; Mean Corpuscular HGB Conc 34.7 g/dL (30.0-36.0); Mean Corpuscular Hemoglobin 30.4 pg (28.0-34.0); Mean Corpuscular Volume 87.7 fl (80-94); Mean Platelet Volume 10.4 fL (7.4-10.4); Monocytes % 5.8 %; Neutrophils # 15.56 10^3/uL (1.8-7.7); Nucleated Red Blood Cells % 0 %; Platelet Count 308 10^3/cmm (130-400); Red Blood Count 4.31 10^6/uL (4.1-5.3); Red Cell Distribution Width 14.3 % (12.1-15.1); White Blood Count 17.3 10^3/uL (4.0-10.0)
[2021-09-20 02:30] LABS: Alanine Aminotransferase 38 U/L (0-41); Albumin Level 2.4 g/dL (3.5-5.2); Alkaline Phosphatase 313 IU/L (40-130); Aspartate Amino Transferase 43 U/L (0-40); Blood Urea Nitrogen 30 mg/dL (8-23); Calcium 8.2 mg/dL (8.5-10.5); Carbon Dioxide 21 mmol/L (22-29); Chloride 99 mmol/L (98-107); Globulin 4.2 g/dL (1.3-4.6); Glucose 218 mg/dL (65-115); Magnesium 2.1 mg/dL (1.7-2.3); Osmolality Calculated 291 mOsm/kg (285-295); Sodium 134 mmol/L (136-145); Total Bilirubin 0.9 mg/dL (0.15-1.2); Total Protein 6.6 g/dL (6.6-8.7)
[2021-09-20] MEDS: piperacillin-tazobactam 3.375 GM in sodium chloride 0.9% (plus) 50 ML IV ×3 (03:03→17:44)
[2021-09-20] MEDS: sodium chloride 0.9% 1,000 ML 75 ML IV ×2 (07:00→20:46)
[2021-09-20 07:11] LABS: Glucose Point of Care 210 mg/dL (70-110)
[2021-09-20] MEDS: amlodipine 10 mg Tablet PO (08:25)
[2021-09-20] MEDS: allopurinol 100 mg Tablet PO (08:25)
[2021-09-20] MEDS: pantoprazole DR 40 mg Tablet PO ×2 (08:25→17:47)
[2021-09-20] MEDS: insulin lispro 100 unit/1 mL SUBCUT ×3 (08:25→17:46)
[2021-09-20] MEDS: metoprolol tartrate 25 mg Tablet PO ×2 (08:28→20:45)
--- NOTE | 2021-09-20 09:23 | PM.PN ---
Subjective Subjective: Patient developed A. fib postoperatively, he was given metoprolol he was given therapeutic dose of Lovenox EKG showing A. fib Venous Doppler did not show any DVT however D-dimer is high I will request VQ scan Currently requiring 2 L nasal cannula, oxygen requirement is new I do believe postop atelectasis has a role to play, encourage patient to get out of bed, use incentive spirometry Patient is experiencing BPH related symptoms, does not want Huber catheter placement, Will add tamsulosin Vitals/I&O/Wt Last Vital Signs Temp 98.2 F 09/20/21 07:18 Pulse 68 09/20/21 08:11 Resp 16 09/20/21 08:11 BP 136/81 09/20/21 07:18 Pulse Ox 94 09/20/21 08:11 09/19/21 09/20/21 09/20/21 22:59 06:59 14:59 Intake Total 3609 / 4597.75 150 / 4747.75 Output Total 75 / 75 260 / 335 100 / 100 Balance 3534 / 4522.75 -110 / 4412.75 -100 / -100 Weight last 48 hrs Weight 111.13 kg Physical Exam Narrative: Patient is laying supine Abdomen is nontender Wound showing signs of healing No active respite distress however requiring 2 L of oxygen No signs of edema of legs S1, S2 variable Nonfocal neuro exam EOMI, PERRLA Data : 09/20/21 01:27 09/20/21 01:27 Micro: Microbiology 09/18/21 15:31 Blood Culture - Preliminary Blood NEGATIVE TO DATE 09/18/21 15:28 Blood Culture - Preliminary Blood NEGATIVE TO DATE A&P Assessment and plan (1) Acute cholecystitis: Status: Acute (2) Diabetes mellitus: Status: Acute (3) Mass of right kidney: Status: Acute (4) Callus of foot: Status: Acute (5) Chronic ulcer of great toe of right foot, limited to breakdown of skin: Status: Acute (6) Peripheral arterial disease: Status: Acute (7) Diabetic peripheral neuropathy associated with type 2 diabetes mellitus: Status: Acute (8) Venous insufficiency: Status: Acute (9) BPH (benign prostatic hyperplasia): Status: Acute Plan status post laparoscopic cholecystectomy Postoperative A. fib and acute hypoxia Hypoxia could be related to atelectasis Repeat x-ray of chest Wean oxygen to room air Incentive spirometry I have requested VQ scan to rule out PE No signs of DVT D-dimer is high New onset A. fib Responded well to AV robert blocking agents High D-dimer rule out PE Secondary to high creatinine I only gave him daily dose of therapeutic Lovenox Acute hypoxia: Postop: Atelectasis Repeat chest x-ray Rule out PE Type 2 diabetes, glucose above 200 Sliding scale, add long-acting insulin Patient is not ready to be discharged He will need some work-up to rule out PE Chronic kidney disease: Creatinine is still 1.6, patient experiencing BPH symptoms, does not want Huber catheter placement, I will add tamsulosin Full code Attestations Medical Necessity Statement*: Continue medical management Time Spent in Patient Care: 35 Coding Level of Care Code Acute [employer] Supervisor for [facility] Fwd Diagnoses Acute cholecystitis K81.0 Diabetes mellitus E11.9 Mass of right kidney N28.89 Callus of foot L84 Chronic ulcer of great toe of right foot, limited to breakdown of skin L97.511 Peripheral arterial disease I73.9 Diabetic peripheral neuropathy associated with type 2 diabetes mellitus E11.42 Venous insufficiency I87.2 BPH (benign prostatic hyperplasia) N40.0
--- NOTE | 2021-09-20 09:31 | XR_ITS ---
WS: [id number] XR chest 1V portable [id number] REASON FOR EXAM: Postop hypoxia FINDINGS: Compared to previous examination of 08/29/2021 there is elevation of the right hemidiaphragm. Right hem idiaphragm is also normal position in 08/04/2021. Also Moderately tortuous and ectatic thoracic aorta. The heart is mildly enlarged. Calcified granulomatous disease in both hemithoraces. Old pleural pericardial reaction on the left. No acute pulmonary parenchymal or pleural disease is identified. Moderate degenerative spondylosis in the mid and lower thoracic spine. XR/XR chest 1V portable [id number] IMPRESSION: Interval elevation of the right hemidiaphragm. Colon interposition is not demon strated.
[2021-09-20] MEDS: tamsulosin 0.4 mg Capsule 0.8 MG PO (10:28)
[2021-09-20] MEDS: insulin glargine 100 units/1 mL 20 UNIT SUBCUT ×2 (10:28→20:45)
--- NOTE | 2021-09-20 10:44 | PC.NURSE ---
PHILOSOPHY INSTRUCTOR stated patient had a large void in bathroom when getting lung scan. Patient stated he went a lot.
[2021-09-20 11:50] LABS: Glucose Point of Care 215 mg/dL (70-110)
--- NOTE | 2021-09-20 12:16 | P.PN_ITS ---
Subjective Subjective: Pain control. No nausea or vomiting. Tolerating diet. Denies bowel movement or flatus Vitals/I&O/Wt Last Vital Signs Temp 98.2 F 09/20/21 07:18 Pulse 93 09/20/21 11:25 Resp 15 09/20/21 11:25 BP 111/63 09/20/21 11:25 Pulse Ox 94 09/20/21 08:11 09/19/21 09/20/21 09/20/21 22:59 06:59 14:59 Intake Total 3609 / 4597.75 150 / 4747.75 Output Total 75 / 75 260 / 335 100 / 100 Balance 3534 / 4522.75 -110 / 4412.75 -100 / -100 Weight last 48 hrs Weight 245 lb Physical Exam Narrative: General: No acute distress, awake alert and oriented x3 Abdomen: Soft, mildly distended, appropriately tender to palpation Incisions: Dressings clean dry and intact Drain: Serosanguineous Data : 09/20/21 01:27 09/20/21 01:27 Micro: Microbiology 09/18/21 15:31 Blood Culture - Preliminary Blood NEGATIVE TO DATE 09/18/21 15:28 Blood Culture - Preliminary Blood NEGATIVE TO DATE A&P Assessment and plan (1) Acute cholecystitis: Status: Acute Plan Postoperative day #1 status post laparoscopic cholecystectomy Continue IV antibiotics Regular diet If patient continues to improve, I will remove his drain and okay for discharge tomorrow Patient should complete 1 week of antibiotics at home, with Augmentin Attestations Medical Necessity Statement*: Patient requires at least 1 more night in the hospital for IV antibiotics Coding Level of Care Code Acute Orthotic/Prosthetic Clinician for [facility] Diagnoses Acute cholecystitis K81.0
--- NOTE | 2021-09-20 15:22 | PC.NURSE ---
Spouse brougt Triamt/hctz in from home. Reason for medication to be late.
[2021-09-20 17:09] LABS: Glucose Point of Care 196 mg/dL (70-110)
[2021-09-20] MEDS: enoxaparin 120 mg/0.8 mL Syringe 110 MG SUBCUT (17:45)
--- NOTE | 2021-09-20 18:13 | NM_ITS ---
WS: [id number] NUCLEAR MEDICINE VENTILATION/PERFUSION LUNG SCAN HISTORY: Pulmonary embolism. COMPARISON: Chest radiograph 09/20/2021 TECHNIQUE: Ventilation: 32.5 mCi of Technetium 99 DTPA aerosol inhaled. Perfusion: 5.1 mCi of technetium 99m MAA IV. Deposition of radionuclide centrally do on the ventilatory portion. Lungs are hyperinflated. Moderate elevation of the RIGHT hemidiaphragm is similar to the prior radiograph. This has also been noted on more remote radiographs. Perfusion examination is mildly heterogeneous. There are no wedge-shaped defects are unmatched. NM/NM pul vent and perfus* [id number] IMPRESSION: 1. No large wedge-shaped area suspicious for large emboli. Small emboli cannot be excluded due to the heterogeneous deposition during perfusion. 2. Indeterminate probability.
[2021-09-21] VITALS (7 sets, daily range): BP systolic 113–158; BP diastolic 66–81; PULSE 89–114; RESP 16–20; TEMP 36.4–37; O2SAT 90–94
[2021-09-21] MEDS: piperacillin-tazobactam 3.375 GM in sodium chloride 0.9% (plus) 50 ML IV (03:33)
[2021-09-21] MEDS: sodium chloride 0.9% 1,000 ML 75 ML IV (03:37)
--- NOTE | 2021-09-21 04:43 | PC.NURSE ---
patient accidentally pulled iv from left hand. patient has developed slight +1 pitting edema throughout the night.
--- NOTE | 2021-09-21 04:54 | PC.NURSE ---
message sent to physician about new onset of symptoms
[2021-09-21 05:34] LABS: Basophils % 0.1 %; Eosinophils # 0.1 10^3/uL (0.0-0.8); Eosinophils % 0.9 %; Hematocrit 36.4 % (42.0-52.0); Hemoglobin 12.3 g/dL (11.7-16.6); Lymphocytes # 1.2 10^3/uL (0.8-4.8); Lymphocytes % 8.7 %; Mean Corpuscular HGB Conc 33.8 g/dL (30.0-36.0); Mean Corpuscular Volume 88.8 fl (80-94); Monocytes # 1.5 10^3/uL (0.2-0.9); Monocytes % 10.4 %; Neutrophils # 11.18 10^3/uL (1.8-7.7); Nucleated Red Blood Cells % 0 %; Platelet Count 359 10^3/cmm (130-400); Red Cell Distribution Width 14.5 % (12.1-15.1); White Blood Count 14.2 10^3/uL (4.0-10.0)
[2021-09-21 05:53] LABS: Alanine Aminotransferase 39 U/L (0-41); Albumin Level 2.3 g/dL (3.5-5.2); Alkaline Phosphatase 301 IU/L (40-130); Anion Gap 14.6 (5-19); Aspartate Amino Transferase 45 U/L (0-40); Blood Urea Nitrogen 43 mg/dL (8-23); Carbon Dioxide 23 mmol/L (22-29); Chloride 99 mmol/L (98-107); Globulin 4.1 g/dL (1.3-4.6); Glucose 185 mg/dL (65-115); Osmolality Calculated 292 mOsm/kg (285-295); Potassium 3.6 mmol/L (3.5-5.1); Sodium 133 mmol/L (136-145); Total Bilirubin 0.5 mg/dL (0.15-1.2); Total Protein 6.4 g/dL (6.6-8.7)
[2021-09-21 06:44] LABS: Glucose Point of Care 167 mg/dL (70-110)
[2021-09-21] MEDS: insulin lispro 100 unit/1 mL SUBCUT (08:46)
[2021-09-21] MEDS: tamsulosin 0.4 mg Capsule 0.8 MG PO (08:46)
[2021-09-21] MEDS: allopurinol 100 mg Tablet PO (08:47)
[2021-09-21] MEDS: pantoprazole DR 40 mg Tablet PO (08:47)
[2021-09-21] MEDS: amlodipine 10 mg Tablet PO (08:47)
[2021-09-21] MEDS: insulin glargine 100 units/1 mL 20 UNIT SUBCUT (08:55)
[2021-09-21] MEDS: metoprolol tartrate 25 mg Tablet PO (08:55)
--- NOTE | 2021-09-21 09:30 | PM.PN ---
Subjective Subjective: Pain control. No nausea or vomiting. Tolerating diet. Vitals/I&O/Wt Last Vital Signs Temp 97.9 F 09/21/21 08:00 Pulse 91 09/21/21 08:00 Resp 20 H 09/21/21 08:00 BP 113/79 09/21/21 08:00 Pulse Ox 90 09/21/21 08:00 09/20/21 09/21/21 09/21/21 22:59 06:59 14:59 Intake Total 1050 / 1340 1999 / 3340 50 / 50 Output Total 1105 / 1205 680 / 1885 Balance -55 / 135 1320 / 1455 50 / 50 Physical Exam Narrative: General: No acute distress, awake alert and oriented x3 Abdomen: Soft, mildly distended, appropriately tender to palpation Incisions: Dressings clean dry and intact Drain: Serosanguineous Data : 09/21/21 04:57 09/21/21 04:57 A&P Assessment and plan (1) Acute cholecystitis: Status: Acute Plan Postoperative day #2 status post laparoscopic cholecystectomy Continue IV antibiotics Regular diet Surgically stable for discharge 5 days of Augmentin in patient's discharge No need for pain medication other than Tylenol and Aleve for this patient Attestations Medical Necessity Statement*: Further hospitalization per hospitalist Coding Level of Care Code Acute Commercial Lines Account Executive for [facility] Diagnoses Acute cholecystitis K81.0
--- NOTE | 2021-09-21 11:38 | PM.DCS ---
Discharge Providers Date of Admission: 09/18/21 15:34 Date of Discharge: September 21, 2021 Attending Provider at Admission: Hermila Hung MD Attending Provider at Discharge: Hermila Hung MD Primary Care Provider: Humberto Griggs DO Diagnoses at Discharge Discharge Diagnosis (1) Acute cholecystitis: Status: Acute Reason for Visit Reason for Visit: Weakness, Heart burn, tired Hospital Course Hospital Course 76-year-old male who was diagnosed with acute cholecystitis, went for surgery on 09/19, status post laparoscopic cholecystectomy with postop complications of new onset A. fib RVR. He was started on therapeutic dose of Lovenox once a day and metoprolol. He has remained asymptomatic, no chest pain or shortness of breath, heart rate is between 80 to 90s, atrial flutter, his [id number] 5 he has been started on low-dose Eliquis because of his high creatinine secondary to chronic kidney disease, he is tolerating his diet, no active nausea or worsening abdominal pain, his drain will be removed before discharge today. Secondary to high D-dimer I requested VQ scan and venous Doppler which did not show any signs of pulmonary embolism. Secondary to chronic kidney disease I will discontinue his losartan, triamterene hydrochlorothiazide combination and losartan I will give him high-dose of Metroprolol tartrate, add amlodipine and hydralazine for hypertension management Physical Exam Narrative: Patient is laying supine, very pleasant and cooperative, happy with his progress Abdomen is nontender Wound showing signs of healing No active resp distress currently on room air No signs of edema of legs S1, S2 variable Nonfocal neuro exam EOMI, PERRLA Discharge Data Studies Completed and Pending Completed Studies During Hospitalization Category Date Time Status CT abdomen pelvis wo con [id number] Stat Cat Scan 09/18/21 13:49 Completed XR chest 1V portable [id number] Routine Exams 09/20/21 09:31 Completed XR chest 1V portable [id number] Stat Exams 09/18/21 13:18 Completed NM pul vent and perfus* [id number] Routine Nuc Med 09/20/21 18:13 Completed CV. echo complete* [id number] Stat Ultrasound 09/18/21 17:29 Completed US gall bladder [id number] Stat Ultrasound 09/18/21 14:37 Completed US venous duplex lower extremity bilat [CV venous Ultrasound 09/19/21 18:13 [place] [id number]] Routine Pending at discharge Category Date Time Status ES surgery / GI images Routine Exams 09/19/21 14:54 Ordered Blood Culture Stat Lab 09/18/21 15:31 Results Pathology: Surgical [PTH] Routine Pth 09/19/21 16:55 Received Radiology Impressions Abdomen/Pelvis CT 09/18/21 13:49 IMPRESSION: 1. Findings consistent with acute cholecystitis. Recommend ultrasound evaluation to evaluate for stones. 2. No bile duct dilatation. 3. Mild thickening of the duodenal C-loop is probably secondary reaction to the acute cholecystitis. 4. Mild stable perinephric stranding around each kidney. 5. Small hiatal hernia. 6. Moderate atherosclerotic plaque within the aorta. Suspect component of stenosis involving the mesenteric artery origins, most significant at the SMA and also the renal arteries. Gallbladder Ultrasound 09/18/21 14:37 IMPRESSION: 1. Findings of acute cholecystitis. Sludge and probable stones in the dependent gallbladder. 2. No bile duct dilatation. 3. Suspicious for RIGHT renal mass in the mid kidney. Recommend follow-up renal CT mass protocol in 6-8 weeks. Venous Duplex 09/19/21 18:13 IMPRESSION: No evidence for deep venous thrombosis. Chest X-Ray 09/20/21 09:31 IMPRESSION: Interval elevation of the right hemidiaphragm. Colon interposition is not demonstrated. Pulmonary Perfusion Imaging 09/20/21 18:13 IMPRESSION: 1. No large wedge-shaped area suspicious for large emboli. Small emboli cannot be excluded due to the heterogeneous deposition during perfusion. 2. Indeterminate probability. Laboratory Results WBC 14.2 10^3/uL (4.0-10.0) H 09/21/21 04:57 RBC 4.10 10^6/uL (4.1-5.3) 09/21/21 04:57 Hgb 12.3 g/dL (11.7-16.6) 09/21/21 04:57 Hct 36.4 % (42.0-52.0) L 09/21/21 04:57 MCV 88.8 fl (80-94) 09/21/21 04:57 MCH 30.0 pg (28.0-34.0) 09/21/21 04:57 MCHC 33.8 g/dL (30.0-36.0) 09/21/21 04:57 RDW 14.5 % (12.1-15.1) 09/21/21 04:57 Plt Count 359 10^3/cmm (130-400) 09/21/21 04:57 MPV 10.0 fL (7.4-10.4) 09/21/21 04:57 Neut % (Auto) 79.0 % 09/21/21 04:57 Lymph % (Auto) 8.7 % 09/21/21 04:57 [place] % (Auto) 10.4 % 09/21/21 04:57 Eos % (Auto) 0.9 % 09/21/21 04:57 Baso % (Auto) 0.1 % 09/21/21 04:57 Neut # (Auto) 11.18 10^3/uL (1.8-7.7) H 09/21/21 04:57 Lymph # (Auto) 1.2 10^3/uL (0.8-4.8) 09/21/21 04:57 [place] # (Auto) 1.5 10^3/uL (0.2-0.9) H 09/21/21 04:57 Eos # (Auto) 0.1 10^3/uL (0.0-0.8) 09/21/21 04:57 Baso # (Auto) 0.0 10^3/uL (0.0-0.1) 09/21/21 04:57 Nucleated RBC % (auto) 0 % 09/21/21 04:57 Nucleated RBCs # 0.0 /100WBC 09/21/21 04:57 D-Dimer 3.36 ug/mIFEU (0-0.59) H 09/19/21 18:35 Sodium 133 mmol/L (136-145) L 09/21/21 04:57 Potassium 3.6 mmol/L (3.5-5.1) 09/21/21 04:57 Chloride 99 mmol/L (98-107) 09/21/21 04:57 Carbon Dioxide 23 mmol/L (22-29) 09/21/21 04:57 Anion Gap 14.6 (5-19) 09/21/21 04:57 BUN 43 mg/dL (8-23) H 09/21/21 04:57 Creatinine 1.8 mg/dL (0.7-1.2) H 09/21/21 04:57 GFR Calculation Not Reportable 09/21/21 04:57 Glucose 185 mg/dL (65-115) H 09/21/21 04:57 POC Glucose 167 mg/dL (70-110) H 09/21/21 05:58 Calculated Osmolality 292 mOsm/kg (285-295) 09/21/21 04:57 Lactic Acid 2.4 mmol/L (0.5-2.2) H 09/18/21 14:58 Lactic Acid (Sepsis) 1.7 mmol/L (0.5-2.2) 09/18/21 18:04 Lactate 1.0 mmol/L (0.5-2.2) 09/19/21 05:00 Calcium 8.0 mg/dL (8.5-10.5) L 09/21/21 04:57 Magnesium 2.1 mg/dL (1.7-2.3) 09/20/21 01:27 Total Bilirubin 0.5 mg/dL (0.15-1.2) 09/21/21 04:57 AST 45 U/L (0-40) H 09/21/21 04:57 ALT 39 U/L (0-41) 09/21/21 04:57 Alkaline Phosphatase 301 IU/L (40-130) H 09/21/21 04:57 Troponin T Baseline 30 ng/L (0-15) H 09/18/21 15:28 Troponin T 120 Minute 28.70 ng/L (0-15) H 09/18/21 18:04 Delta Troponin T -1.30 ABS# (0-10) L 09/18/21 18:04 Troponin T Hi Sens 6Hr 25.07 ng/L (0-15) H 09/18/21 21:13 Troponin T Hi Sens 6Hr Delta -4.93 ng/L (0-12) L 09/18/21 21:13 NT-Pro-B Natriuret Pep 1353 pg/mL (0-450) H 09/18/21 15:28 Total Protein 6.4 g/dL (6.6-8.7) L 09/21/21 04:57 Albumin 2.3 g/dL (3.5-5.2) L 09/21/21 04:57 Globulin 4.1 g/dL (1.3-4.6) 09/21/21 04:57 Procalcitonin 1.08 ng/mL (0-0.5) H 09/19/21 05:00 TSH 3.01 uIU/mL (0.27-4.20) 09/18/21 21:13 Urine Color Yellow (Yellow) 09/18/21 13:50 Urine Appearance Clear (CLEAR) 09/18/21 13:50 Urine pH 6 (5-7) 09/18/21 13:50 Ur Specific [place] 1.005 (1.005-1.030) 09/18/21 13:50 Urine Protein 2+ (Negative) H 09/18/21 13:50 Urine Glucose (UA) Norm (Normal) 09/18/21 13:50 Urine Ketones Negative (Negative) 09/18/21 13:50 Urine Blood 3+ (Negative) H 09/18/21 13:50 Urine Nitrate Negative (Negative) 09/18/21 13:50 Urine Bilirubin Neg (Negative) 09/18/21 13:50 Urine Urobilinogen Norm mg/dL (Negative) 09/18/21 13:50 Ur Leukocyte Esterase Negative (Negative) 09/18/21 13:50 Urine RBC 0-4 /hpf (0-2) H 09/18/21 13:50 Urine WBC 0-4 /hpf (0-5) H 09/18/21 13:50 Ur Squamous Epith Cells 0-4 /hpf (0-5) H 09/18/21 13:50 Amorphous Sediment Not Reportable 09/18/21 13:50 Urine Bacteria None /hpf (NONE) 09/18/21 13:50 Hyaline Casts 10-15 /lpf H 09/18/21 13:50 Vitals Last Vital Signs Temp 98.6 F 09/21/21 11:07 Pulse 114 H 09/21/21 11:07 Resp 16 09/21/21 11:07 BP 158/66 09/21/21 11:07 Pulse Ox 94 09/21/21 11:07 Discharge Plan Discharge Patient Disposition: Home Condition: Stable Prescriptions: New amoxicillin-pot clavulanate 875-125 mg tablet 1 tab PO Q12H Qty: 10 0RF tamsulosin 0.4 mg Capsule 0.8 mg PO DAILY Qty: 60 0RF amlodipine 10 mg tablet 10 mg PO DAILY Qty: 90 3RF hydralazine 10 mg tablet 10 mg PO BID Qty: 60 3RF metoprolol tartrate 100 mg tablet 100 mg PO Q12H Qty: 120 4RF Eliquis 2.5 mg tablet 2.5 mg PO BID Qty: 60 3RF Continued rosuvastatin 40 mg tablet 40 mg PO DAILY 0RF triamcinolone acetonide 0.1 % ointment 1 applic topical BID Qty: 453.6 1RF Rx Instructions: to trunk and extremities no more than 2 wks/mo (DME) cam boot See Rx Instructions .Route .MEDSUPPLY Qty: 1 0RF Rx Instructions: As directed mupirocin 2 % ointment 1 applic topical BID 14 Days Qty: 22 3RF amlodipine 10 mg tablet 10 mg PO DAILY 0RF Lantus U-100 Insulin 100 unit/mL solution 30 unit SUBCUT BID 0RF pantoprazole 40 mg tablet,delayed release (DR/EC) 40 mg PO BID 0RF glipizide 10 mg tablet extended release 24hr 10 mg PO DAILY 0RF allopurinol 100 mg Tablet 100 mg PO DAILY 0RF magnesium 250 mg Tablet 250 mg PO DAILY 0RF Lasix 20 mg Tablet 20 mg PO DAILY 0RF Flonase 50 mcg/actuation [place],Suspension 2 spray INTRANASAL DAILY PRN (Reason: Nasal Congestion) 0RF Rx Instructions: administer into each nostril calcitriol 0.25 mcg Capsule See Rx Instructions .ROUTE .COMPLEX 0RF Rx Instructions: 0.25 mcg orally twice weekly on and Thursday sildenafil (pulm.hypertension) 20 mg tablet See Rx Instructions .ROUTE .COMPLEX PRN (Reason: Desired Effect) 0RF Rx Instructions: 20 mg orally 1-4 hours before desired effect - no more than 2 tablets in a 24 hour period Xyzal 5 mg Tablet 5 mg PO DAILY 0RF Held lisinopril 40 mg Tablet 40 mg PO DAILY 0RF Hold Instructions: Resume on 09/28/21. potassium chloride 20 mEq Tablet Extended Release 20 meq PO DAILY 0RF Hold Instructions: Resume on 09/28/21. Discontinued triamterene-hydrochlorothiazid 75-50 mg tablet 1 tab PO DAILY 0RF Discharge Orders: Discharge Order (Routine); Ordered 09/21/21 Ordered By: Hermila Hung Other Ambulatory Orders: Basic Metabolic Panel (Routine) Timeframe: 3 Days Facility: [facility] - Location: Lab - Main Lab Ordered By: Hermila Hung Sleep Study/Titration (Routine) Timeframe: 1 Week Facility: [facility] - Location: [facility] Ordered By: Hermila Hung Referrals: Humberto Griggs DO [Primary Care Provider] - 4-7 days Discharge Diet: Cardiac Discharge Activity: Increase activity as tolerated Patient Instructions: Opioid Safety, Post Anesthesia Care Discharge Attestations Time Spent in Discharge Care*: less than 30 min Quality Metrics Clinical Quality Measures [ No reported AMI, CVA or VTE this stay] Coding Level of Care Code Acute Chg FW DC note Diagnoses Acute cholecystitis K81.0
[2021-09-21 11:49] LABS: Glucose Point of Care 164 mg/dL (70-110)
--- NOTE | 2021-09-21 13:44 | PC.SOCIAL ---
IMM UPDATED IMM dated and initialed, copy given to patient and copy placed in chart
--- NOTE | 2021-09-21 15:30 | PC.NURSE ---
Discharge education reviewed with patient and spouse at bedside with all questions answered. Verbally acknowlegdes discharge plans and follow up. DILLON removed with no complications and occlusive dressing placed.
== END 2021-09-21 15:31 | disposition home or self-care (01) | DRG 418 ==
LOC: ER 15:40 → MEDSURG 16:10
PROVIDERS: Surgery; Admitting Provider Internal Medicine; Emergency Provider Family Medicine; PCP Electrodiagnostic Medicine; Visit Provider Internal Medicine
PROC: 0FT44ZZ Resection of Gallbladder, Percutaneous Endoscopic Approach (ICD-10-PCS; CPT 47562; principal; 2021-09-19 12:55)
DX: K81.0 Acute cholecystitis (principal); E87.1 Hypo-osmolality and hyponatremia; I97.191 Other postprocedural cardiac functional disturbances following other surgery; J95.89 Other postprocedural complications and disorders of respiratory system, not elsewhere classified; J98.11 Atelectasis; E11.22 Type 2 diabetes mellitus with diabetic chronic kidney disease; E11.51 Type 2 diabetes mellitus with diabetic peripheral angiopathy without gangrene; E11.40 Type 2 diabetes mellitus with diabetic neuropathy, unspecified; N18.9 Chronic kidney disease, unspecified; K21.9 Gastro-esophageal reflux disease without esophagitis; Z87.891 Personal history of nicotine dependence; N28.89 Other specified disorders of kidney and ureter; I87.8 Other specified disorders of veins; E11.621 Type 2 diabetes mellitus with foot ulcer; L97.511 Non-pressure chronic ulcer of other part of right foot limited to breakdown of skin; N40.0 Benign prostatic hyperplasia without lower urinary tract symptoms; Z79.84 Long term (current) use of oral hypoglycemic drugs; Z79.4 Long term (current) use of insulin
CPT/HCPCS: 36415; 36416; 71045; 74176; 76705; 78014; 80053; 81001; 82962; 83605; 83735; 83880; 84145; 84443; 84484; 85025; 85378; 87040; 88304; 93005; 93306; 93970; 96365; 96367; 96372; 99285; A9540; A9567; J1100; J1170; J1650; J1815; J1956; J2270; J2370; J2405; J2543; J2704; J2710; J3010; J3475; J3480; J3490; J7030

== ENCOUNTER → 2021-09-24 10:04 | Outpatient (BNVA) | payer MEDICARE, OTHER, SELFPAY | PROVIDERS: PCP Electrodiagnostic Medicine; Visit Provider Podiatrist Foot & Ankle Surgery | DX: E11.621 Type 2 diabetes mellitus with foot ulcer (principal); L97.521 Non-pressure chronic ulcer of other part of left foot limited to breakdown of skin; E11.42 Type 2 diabetes mellitus with diabetic polyneuropathy; I87.2 Venous insufficiency (chronic) (peripheral); L60.3 Nail dystrophy; M20.40 Other hammer toe(s) (acquired), unspecified foot; L97.511 Non-pressure chronic ulcer of other part of right foot limited to breakdown of skin; L84 Corns and callosities | CPT/HCPCS: 99214 ==

== ENCOUNTER 2021-09-25 09:00 | Outpatient (CLI) | payer MEDICARE, OTHER, SELFPAY ==
[2021-09-25 09:39] LABS: Anion Gap 13.2 (5-19); Blood Urea Nitrogen 18 mg/dL (8-23); Calcium 8.4 mg/dL (8.5-10.5); Carbon Dioxide 28 mmol/L (22-29); Chloride 100 mmol/L (98-107); Glucose 116 mg/dL (65-115); Osmolality Calculated 289 mOsm/kg (285-295); Potassium 3.2 mmol/L (3.5-5.1); Sodium 138 mmol/L (136-145)
== END 2021-09-25 09:01 | disposition home or self-care (01) ==
LOC: LAB 09:04
PROVIDERS: PCP Electrodiagnostic Medicine; Visit Provider Internal Medicine
DX: N17.9 Acute kidney failure, unspecified (principal)
CPT/HCPCS: 36415; 80048

== ENCOUNTER → 2021-09-30 09:52 | Outpatient (BNVA) | payer MEDICARE, OTHER, SELFPAY | PROVIDERS: PCP Electrodiagnostic Medicine; Visit Provider Surgery | DX: Z98.890 Other specified postprocedural states (principal); Z90.49 Acquired absence of other specified parts of digestive tract | CPT/HCPCS: 99024 ==

== ENCOUNTER → 2021-10-16 11:18 | Outpatient (BNVA) | payer MEDICARE, OTHER, SELFPAY | PROVIDERS: PCP Family Medicine; Visit Provider Podiatrist Foot & Ankle Surgery | DX: Z79.4 Long term (current) use of insulin (principal); E11.42 Type 2 diabetes mellitus with diabetic polyneuropathy; I73.9 Peripheral vascular disease, unspecified | CPT/HCPCS: 99213; 99214 ==

== ENCOUNTER → 2021-10-24 12:17 | Outpatient (BNVA) | payer MEDICARE, OTHER, SELFPAY | PROVIDERS: PCP Electrodiagnostic Medicine; Referring Provider Electrodiagnostic Medicine; Visit Provider Internal Medicine Cardiovascular Disease | DX: I48.91 Unspecified atrial fibrillation (principal); E11.42 Type 2 diabetes mellitus with diabetic polyneuropathy; I73.9 Peripheral vascular disease, unspecified; Z79.01 Long term (current) use of anticoagulants; E11.22 Type 2 diabetes mellitus with diabetic chronic kidney disease; N18.9 Chronic kidney disease, unspecified; Z79.84 Long term (current) use of oral hypoglycemic drugs; Z79.4 Long term (current) use of insulin | CPT/HCPCS: 99213; 99214 ==

== ENCOUNTER 2021-11-26 10:42 | Outpatient (CLI) | payer MEDICARE, OTHER, SELFPAY ==
[2021-11-26 12:21] LABS: Creatinine Urine, Random 31 mg/dL (39-259); Total Protein, Random Urine 56.7 mg/dL (0.0-20.0)
[2021-11-26 12:22] LABS: Albumin Level 3.7 g/dL (3.5-5.2); Anion Gap 11.1 (5-19); Blood Urea Nitrogen 20 mg/dL (8-23); Calcium 9.4 mg/dL (8.5-10.5); Carbon Dioxide 33 mmol/L (22-29); Chloride 96 mmol/L (98-107); Glucose 218 mg/dL (65-115); Osmolality Calculated 293 mOsm/kg (285-295); Phosphorus 3.7 mg/dL (2.5-4.5); Potassium 3.1 mmol/L (3.5-5.1); Sodium 137 mmol/L (136-145); Uric Acid 6.8 mg/dL (3.4-7.0)
[2021-11-26 12:23] LABS: Calcium 9.4 mg/dL (8.5-10.5)
[2021-11-26 12:27] LABS: Add Urine Microscopic? YES; Bilirubin Urine Neg (Negative); Blood Urine 2+ (Negative); Glucose Urine UA Norm (Normal); Ketones Urine Negative (Negative); Leukocyte Esterase Urine Negative (Negative); Nitrate Urine Negative (Negative); Protein Urine 1+ (Negative); Specific Gravity, Urine 1.005 (1.005-1.030); Urine Appearance Clear (CLEAR); Urine Color Yellow (Yellow); Urobilinogen Urine Norm (Negative); pH Urine 7 (5-7)
[2021-11-26 12:28] LABS: Add Urine Culture? No; RBC Urine 0-4 /hpf (0-2); Squamous Epithelial Cell Urine 0-4 /hpf (0-5); WBC Urine 0-4 /hpf (0-5)
[2021-11-26 12:31] LABS: Parathyroid Hormone 39.7 pg/mL (15-65)
[2021-11-29 12:03] LABS: Vit D 1,25 (Oh)2, Total 20 pg/mL (18-72); Vit D2 1,25 (Oh)2 <8 pg/mL; Vit D3 1,25 (Oh)2 20 pg/mL
== END 2021-11-26 10:43 | disposition home or self-care (01) ==
LOC: LAB 11:12
PROVIDERS: PCP Electrodiagnostic Medicine; Visit Provider Nurse Practitioner Gerontology
DX: E55.9 Vitamin D deficiency, unspecified (principal); E21.3 Hyperparathyroidism, unspecified; N18.32 Chronic kidney disease, stage 3b
CPT/HCPCS: 36415; 80048; 81001; 82040; 82310; 82575; 82652; 83735; 83970; 84100; 84156; 84550

== ENCOUNTER → 2021-12-02 10:16 | Outpatient (BNVA) | payer MEDICARE, OTHER, SELFPAY | PROVIDERS: Visit Provider Podiatrist Foot & Ankle Surgery | DX: I73.9 Peripheral vascular disease, unspecified (principal); Z79.4 Long term (current) use of insulin; E11.42 Type 2 diabetes mellitus with diabetic polyneuropathy | CPT/HCPCS: 73630; 99213; 99214 ==

== ENCOUNTER → 2021-12-16 11:05 | Outpatient (BNVA) | payer MEDICARE, SELFPAY | PROVIDERS: Visit Provider Podiatrist Foot & Ankle Surgery | DX: E11.621 Type 2 diabetes mellitus with foot ulcer (principal); L97.511 Non-pressure chronic ulcer of other part of right foot limited to breakdown of skin; E11.42 Type 2 diabetes mellitus with diabetic polyneuropathy; I73.9 Peripheral vascular disease, unspecified; Z79.4 Long term (current) use of insulin | CPT/HCPCS: 99213; 99214 ==

== ENCOUNTER → 2022-01-06 10:55 | Outpatient (BNVA) | payer MEDICARE, OTHER, SELFPAY | PROVIDERS: PCP Family Medicine; Visit Provider Podiatrist Foot & Ankle Surgery | DX: E11.621 Type 2 diabetes mellitus with foot ulcer (principal); L97.519 Non-pressure chronic ulcer of other part of right foot with unspecified severity; Z79.4 Long term (current) use of insulin; I73.9 Peripheral vascular disease, unspecified; E11.42 Type 2 diabetes mellitus with diabetic polyneuropathy | CPT/HCPCS: 99214 ==

== ENCOUNTER 2022-01-14 22:34 | Emergency (ER) | payer MEDICARE, OTHER, SELFPAY ==
[2022-01-14 22:42] VITALS: BP 209/92; PULSE 68; RESP 18; TEMP 36.6; O2SAT 98; BMI 31.6
[2022-01-14 23:04] LABS: Basophils # 0.1 10^3/uL (0.0-0.1); Basophils % 0.7 %; Eosinophils # 1.5 10^3/uL (0.0-0.8); Eosinophils % 14.7 %; Hematocrit 47.9 % (42.0-52.0); Hemoglobin 15.7 g/dL (11.7-16.6); Lymphocytes # 2.2 10^3/uL (0.8-4.8); Lymphocytes % 21.8 %; Mean Corpuscular HGB Conc 32.8 g/dL (30.0-36.0); Mean Corpuscular Volume 91.4 fl (80-94); Mean Platelet Volume 10.1 fL (7.4-10.4); Monocytes # 1.1 10^3/uL (0.2-0.9); Monocytes % 10.3 %; Neutrophils # 5.27 10^3/uL (1.8-7.7); Neutrophils % 51.9 %; Nucleated Red Blood Cells % 0 %; Platelet Count 280 10^3/cmm (130-400); Red Blood Count 5.24 10^6/uL (4.1-5.3); Red Cell Distribution Width 15.3 % (12.1-15.1); White Blood Count 10.2 10^3/uL (4.0-10.0)
--- NOTE | 2022-01-14 23:04 | W.ED.GENADLT ---
HPI - General Adult General: Chief complaint: General Medical Stated complaint: Blood Pressure Time Seen by Provider: 01/14/22 22:56 Source: patient Mode of arrival: ambulatory Limitations: no limitations History of Present Illness: 76-year-old male who has a history of hypertension states that has been checking his blood pressure throughout the day and its gradually increased he states he checked it tonight because 180s he became concerned. He states early had a mild headache states that since resolved he denies any pain states he feels completely normal but was concerned with his blood pressure he states he has been taking his medicines he denies any worsening improving factors has no other complaints. Associated symptoms: Deny chest pain, dyspnea, headache(s), nausea, rash or vomiting Review of Systems Const: Denies: fever(s), chills, body aches or change in appetite Eyes: Denies: blurry vision or eye discomfort ENMT: Denies: throat pain or dental pain Card: Denies: chest pain Resp: Denies: dyspnea GI: Denies: abdominal pain, nausea, vomiting or diarrhea : Denies: dysuria Musc: Denies: neck pain or back pain Skin/Breast: Denies: rash Neuro: Denies: headache(s) Psych: Denies: depression Oc/Lymph: Denies: easy bruising All/Imm: Denies: urticaria PFSH ED PFSH: Medical History Acute cholecystitis Acute cystitis with hematuria Anticoagulation adequate with anticoagulant therapy Atrial fibrillation with controlled ventricular rate BPH (benign prostatic hyperplasia) Callus of foot Chronic ulcer of great toe of right foot, limited to breakdown of skin Diabetes mellitus Diabetes mellitus Diabetic peripheral neuropathy associated with type 2 diabetes mellitus GERD (gastroesophageal reflux disease) [place] Mass of right kidney Peripheral arterial disease Prostatitis, acute Venous insufficiency Surgical History H/O esophagogastroduodenoscopy (12/13/20) normal Hx of cholecystectomy Hx of tonsillectomy Status post colonoscopy (12/13/20) descending colon polyp Status post right inguinal hernia repair Family History Mother , AT AGE 73 Cancer COLON Father , AT AGE 50 Diabetes Social History Smoking and tobacco status: former smoker Alcohol intake: never Current occupational status: retired History of recent travel: No Physical Exam Const: COMMON NORMALS: no acute distress, patient oriented x3 and healthy appearing HENMT: COMMON NORMALS: normocephalic and atraumatic HEAD & SCALP: normocephalic and atraumatic Eye: COMMON NORMALS: Equal, round and reactive pupils present and EOMs intact bilaterally PUPIL: Yes Equal, round and reactive pupils present Neck/C-Spine: COMMON NORMALS: full ROM and supple Chest: COMMONS NORMALS: normal inspection of the chest and normal palpation of entire chest wall Resp: COMMON NORMALS: normal respiratory effort, No retractions, No use of accessory muscles and clear to auscultation bilaterally AUSCULTATION: clear to auscultation bilaterally Cardio: COMMON NORMALS: regular rate, regular rhythm and No murmurs present (Cardio) RATE: regular rate RHYTHM: regular rhythm GI: COMMON NORMALS: Normal to inspection, nondistended, normoactive bowel sounds present, Soft to palpation, non-tender and no masses PALPATION: Yes Soft to palpation Extremity: COMMON NORMALS: normal to inspection and full ROM Neuro: COMMON NORMALS: patient oriented x3, moves all extremities and no focal motor deficits Psych: COMMON NORMALS: mental status grossly normal, Normal thought process present and cooperative THOUGHT PROCESS: Normal thought process present Skin: COMMON NORMALS: no rashes or lesions noted and no wounds GENERAL SKIN EXAM: no rashes or lesions noted Course Vital Signs: Vital signs: Vital Signs Temperature 97.9 F 01/14/22 22:42 Pulse Rate 65 01/14/22 23:36 Respiratory Rate 18 01/14/22 23:36 Blood Pressure 149/85 01/14/22 23:36 Pulse Oximetry 97 01/14/22 23:36 Oxygen Delivery Me thod 01/14/22 22:42 [facility] - General Adult Medical Decision Making Patient presents here with high blood pressure he is asymptomatic his blood pressure is much improved here blood work is normal he stable for discharge he is to follow-up his PCP and return if worsening. Lab Data : 01/14/22 22:58 01/14/22 22:58 Laboratory Results WBC 10.2 10^3/uL (4.0-10.0) H 01/14/22 22:58 RBC 5.24 10^6/uL (4.1-5.3) 01/14/22 22:58 Hgb 15.7 g/dL (11.7-16.6) 01/14/22 22:58 Hct 47.9 % (42.0-52.0) 01/14/22 22:58 MCV 91.4 fl (80-94) 01/14/22 22:58 MCH 30.0 pg (28.0-34.0) 01/14/22 22:58 MCHC 32.8 g/dL (30.0-36.0) 01/14/22 22:58 RDW 15.3 % (12.1-15.1) H 01/14/22 22:58 Plt Count 280 10^3/cmm (130-400) 01/14/22 22:58 MPV 10.1 fL (7.4-10.4) 01/14/22 22:58 Neut % (Auto) 51.9 % 01/14/22 22:58 Lymph % (Auto) 21.8 % 01/14/22 22:58 [place] % (Auto) 10.3 % 01/14/22 22:58 Eos % (Auto) 14.7 % 01/14/22 22:58 Baso % (Auto) 0.7 % 01/14/22 22:58 Neut # (Auto) 5.27 10^3/uL (1.8-7.7) 01/14/22 22:58 Lymph # (Auto) 2.2 10^3/uL (0.8-4.8) 01/14/22 22:58 [place] # (Auto) 1.1 10^3/uL (0.2-0.9) H 01/14/22 22:58 Eos # (Auto) 1.5 10^3/uL (0.0-0.8) H 01/14/22 22:58 Baso # (Auto) 0.1 10^3/uL (0.0-0.1) 01/14/22 22:58 Nucleated RBC % (auto) 0 % 01/14/22 22:58 Nucleated RBCs # 0.0 /100WBC 01/14/22 22:58 Sodium 132 mmol/L (136-145) L 01/14/22 22:58 Potassium 3.6 mmol/L (3.5-5.1) 01/14/22 22:58 Chloride 94 mmol/L (98-107) L 01/14/22 22:58 Carbon Dioxide 29 mmol/L (22-29) 01/14/22 22:58 Anion Gap 12.6 (5-19) 01/14/22 22:58 BUN 19 mg/dL (8-23) 01/14/22 22:58 Creatinine 1.4 mg/dL (0.7-1.2) H 01/14/22 22:58 GFR Calculation Not Reportable 01/14/22:58 Glucose 244 mg/dL (65-115) H 01/14/22 22:58 Calculated Osmolality 284 mOsm/kg (285-295) L 01/14/22 22:58 Calcium 9.3 mg/dL (8.5-10.5) 01/14/22 22:58 Total Bilirubin 0.5 mg/dL (0.15-1.2) 01/14/22 22:58 AST 64 U/L (0-40) H 01/14/22 22:58 ALT 77 U/L (0-41) H 01/14/22 22:58 Alkaline Phosphatase 388 U/L (40-130) H 01/14/22 22:58 Total Protein 8.3 g/dL (6.6-8.7) 01/14/22 22:58 Albumin 3.2 g/dL (3.5-5.2) L 01/14/22 22:58 Globulin 5.1 g/dL (1.3-4.6) H 01/14/22 22:58 Discharge Plan Discharge Patient Disposition: Home Clinical Impression: Hypertension Condition: Stable Prescriptions: No Action rosuvastatin 40 mg tablet 40 mg PO DAILY triamcinolone acetonide 0.1 % ointment 1 applic topical BID Qty: 453.6 1RF Rx Instructions: to trunk and extremities no more than 2 wks/mo pantoprazole 40 mg tablet,delayed release (DR/EC) 40 mg PO BID mupirocin 2 % ointment 1 applic topical BID 14 Days Qty: 22 3RF triamterene-hydrochlorothiazid 75-50 mg tablet 1 tab PO DAILY insulin glargine [Lantus Solostar U-100 Insulin] 100 unit/mL (3 mL) insulin pen 30 unit SUBCUT BID Qty: 15 5RF Rx Instructions: 340B Xarelto 10 mg tablet 10 mg PO DAILY Qty: 90 3RF glipizide 10 mg tablet extended release 24hr 10 mg PO DAILY allopurinol 100 mg Tablet 100 mg PO DAILY magnesium 250 mg Tablet 250 mg PO DAILY lisinopril 40 mg Tablet 40 mg PO DAILY Hold Instructions: Resume on 09/28/21. fluticasone propionate 50 mcg/actuation [place],Suspension 2 spray INTRANASAL DAILY PRN (Reason: Nasal Congestion) Rx Instructions: administer into each nostril sildenafil (pulm.hypertension) 20 mg tablet See Rx Instructions .ROUTE .COMPLEX PRN (Reason: Desired Effect) Rx Instructions: 20 mg orally 1-4 hours before desired effect - no more than 2 tablets in a 24 hour period Xyzal 5 mg Tablet 5 mg PO DAILY potassium chloride 20 mEq Tablet Extended Release 20 meq PO DAILY Hold Instructions: Resume on 09/28/21. metoprolol tartrate 100 mg tablet 100 mg PO Q12H Qty: 120 4RF hydralazine 10 mg tablet 10 mg PO BID Qty: 60 3RF Discharge Orders: Discharge ED (Routine); Ordered 01/15/22 Ordered By: Ne Vasquez Referrals: Humberto Griggs, [Primary Care Provider] - Discharge Diet: Advance as tolerated Discharge Activity: Resume usual activity Patient Instructions: Hypertension (ED) Coding Level of Care Code ED B Operator for Lois Fwd Exam Comprehensive
[2022-01-14] MEDS: hyDRALAzine 20 mg/mL INJ 1 mL 10 MG IVP (23:05)
--- NOTE | 2022-01-14 23:08 | ECG_ITS ---
[facility] Test Date: 2022-01-14 Pat Name: Andrés Dumont Department: Room: Gender: Male Industry Analyst: : 1945 Requested By: Ne Vasquez Order Number: [id number] Twila MD: Danny Mcdonough M.D. Measurements Intervals [place] Rate: 61 P: [place]: QRS: -72 QRSD: 82 T: 57 QT: 450 QTc: 456 Interpretive Statements ATRIAL FIBRILLATION LEFT AXIS DEVIATION [QRS AXIS < -30] ANTEROSEPTAL MYOCARDIAL INFARCTION , PROBABLY OLD [40+ ms Q WAVE IN V1-V4] Compared to ECG 09/19/2021 17:55:49 Left-axis deviation now present Left anterior fascicular block no longer present Myocardial infarct finding still present Electronically Signed On 01-15-2022 0:22:40 CDT by Danny Mcdonough M.D. [id number]
[2022-01-14 23:30] LABS: Alanine Aminotransferase 77 U/L (0-41); Albumin Level 3.2 g/dL (3.5-5.2); Alkaline Phosphatase 388 U/L (40-130); Aspartate Amino Transferase 64 U/L (0-40); Blood Urea Nitrogen 19 mg/dL (8-23); Calcium 9.3 mg/dL (8.5-10.5); Carbon Dioxide 29 mmol/L (22-29); Chloride 94 mmol/L (98-107); Globulin 5.1 g/dL (1.3-4.6); Glucose 244 mg/dL (65-115); Osmolality Calculated 284 mOsm/kg (285-295); Sodium 132 mmol/L (136-145); Total Bilirubin 0.5 mg/dL (0.15-1.2); Total Protein 8.3 g/dL (6.6-8.7)
[2022-01-14 23:36] VITALS: BP 149/85; PULSE 65; RESP 18; O2SAT 97
[2022-01-14 23:37] LABS: Anion Gap 12.6 (5-19); Potassium 3.6 mmol/L (3.5-5.1)
[2022-01-15 00:16] VITALS: BP 134/69; PULSE 70; RESP 22; O2SAT 97
== END 2022-01-15 00:10 | disposition home or self-care (01) ==
PROVIDERS: Emergency Provider Emergency Medicine; PCP Electrodiagnostic Medicine
DX: I10 Essential (primary) hypertension (principal); Z79.4 Long term (current) use of insulin; Z79.84 Long term (current) use of oral hypoglycemic drugs; E11.9 Type 2 diabetes mellitus without complications; Z87.891 Personal history of nicotine dependence
CPT/HCPCS: 80053; 85025; 93005; 96374; 99284; J0360

== ENCOUNTER → 2022-01-17 10:04 | Outpatient (BNVA) | payer MEDICARE, OTHER, SELFPAY | PROVIDERS: PCP Electrodiagnostic Medicine; Visit Provider Nurse Practitioner Family | DX: I48.91 Unspecified atrial fibrillation (principal); I10 Essential (primary) hypertension; Z87.891 Personal history of nicotine dependence | CPT/HCPCS: 99214 ==

== ENCOUNTER → 2022-02-04 09:23 | Outpatient (BNVA) | payer MEDICARE, OTHER, SELFPAY | PROVIDERS: PCP Electrodiagnostic Medicine; Visit Provider Urology | DX: N40.1 Benign prostatic hyperplasia with lower urinary tract symptoms (principal); R39.9 Unspecified symptoms and signs involving the genitourinary system | CPT/HCPCS: 51741; 51798; 81003; 99213 ==

== ENCOUNTER → 2022-02-12 09:57 | Outpatient (BNVA) | payer MEDICARE, OTHER, SELFPAY | PROVIDERS: PCP Electrodiagnostic Medicine; Visit Provider Nurse Practitioner Family | DX: I48.91 Unspecified atrial fibrillation (principal); I10 Essential (primary) hypertension; Z87.891 Personal history of nicotine dependence | CPT/HCPCS: 99214 ==

== ENCOUNTER → 2022-02-17 08:57 | Outpatient (BNVA) | payer MEDICARE, OTHER, SELFPAY | PROVIDERS: PCP Electrodiagnostic Medicine; Visit Provider Podiatrist Foot & Ankle Surgery | DX: E11.621 Type 2 diabetes mellitus with foot ulcer (principal); Z79.4 Long term (current) use of insulin; L97.411 Non-pressure chronic ulcer of right heel and midfoot limited to breakdown of skin; E11.42 Type 2 diabetes mellitus with diabetic polyneuropathy; I73.9 Peripheral vascular disease, unspecified | CPT/HCPCS: 99214 ==

== ENCOUNTER → 2022-03-03 10:03 | Outpatient (BNVA) | payer MEDICARE, OTHER, SELFPAY | PROVIDERS: PCP Electrodiagnostic Medicine; Visit Provider Nurse Practitioner Family | DX: I10 Essential (primary) hypertension (principal); G47.30 Sleep apnea, unspecified; I48.91 Unspecified atrial fibrillation; Z79.01 Long term (current) use of anticoagulants; Z87.891 Personal history of nicotine dependence | CPT/HCPCS: 99214 ==

== ENCOUNTER → 2022-03-11 12:31 | Outpatient (BNVA) | payer MEDICARE, OTHER, SELFPAY | PROVIDERS: PCP Family Medicine; Visit Provider Podiatrist Foot & Ankle Surgery | DX: E11.621 Type 2 diabetes mellitus with foot ulcer (principal); L97.411 Non-pressure chronic ulcer of right heel and midfoot limited to breakdown of skin; I73.9 Peripheral vascular disease, unspecified; E11.42 Type 2 diabetes mellitus with diabetic polyneuropathy; Z79.4 Long term (current) use of insulin | CPT/HCPCS: 99214 ==

== ENCOUNTER 2022-03-15 16:37 | Emergency (ER) | payer MEDICARE, OTHER, SELFPAY ==
[2022-03-15 16:45] VITALS: BP 93/56; PULSE 77; RESP 22; TEMP 36.5; O2SAT 95; BMI 31.9
--- NOTE | 2022-03-15 17:14 | ED_ITS ---
HPI - Dizziness General: Chief Complaint: Dizziness Stated Complaint: confusion, dizzy Time Seen by Provider: 03/15/22 17:14 History of Present Illness: HPI Narrative: Mr. Dumont is a 76-year-old gentleman with history of hypertension, hyperlipidemia, DM, atrial fibrillation presenting to the emergency department due to episode of alteration of mental status. He has been at his baseline health past few days, he was sitting eating and noticed that he seemed out of it associated with diaphoresis. He currently feels back to baseline. Intensity symptoms when present was moderate to severe. No other specific changes in health, exacerbating, or alleviating factors identified. Onset (ago): minute(s) Timing: sudden onset Severity: moderate Description: other History of similar symptoms: No Associated neuro symptoms: Reports confusion Review of Systems General: Reports: 10 or more systems reviewed and unremarkable except in HPI and below Neuro: Reports: confusion [facility] ED PFSH: Medical History Acute cholecystitis Acute cystitis with hematuria Anticoagulation adequate with anticoagulant therapy Atrial fibrillation with controlled ventricular rate BPH (benign prostatic hyperplasia) Callus of foot Chronic ulcer of great toe of right foot, limited to breakdown of skin Diabetes mellitus Diabetes mellitus Diabetic peripheral neuropathy associated with type 2 diabetes mellitus GERD (gastroesophageal reflux disease) [place] Hypertension Mass of right kidney Peripheral arterial disease Prostatitis, acute Venous insufficiency Surgical History H/O esophagogastroduodenoscopy (12/13/20) normal Hx of cholecystectomy Hx of tonsillectomy Status post colonoscopy (12/13/20) descending colon polyp Status post right inguinal hernia repair Family History Mother , AT AGE 73 Cancer COLON Father , AT AGE 50 Diabetes Social History Smoking and tobacco status: former smoker Alcohol intake: current Alcohol intake frequency: holidays/special occasions only Marital status: Current occupational status: retired History of recent travel: No Physical Exam Const: COMMON NORMALS: patient oriented x3 and alert GENERAL APPEARANCE: cooperative and well developed HENMT: COMMON NORMALS: normocephalic and atraumatic HEAD & SCALP: normocephalic and atraumatic THROAT: posterior oropharynx normal Eye: COMMON NORMALS: conjunctivae normal CONJUNCTIVA: Yes conjunctivae normal SCLERA: sclerae normal Neck/C-Spine: COMMON NORMALS: supple GENERAL: Yes trachea midline Resp: COMMON NORMALS: normal respiratory effort and clear to auscultation bilaterally EFFORT & INSPECTION: Yes able to speak in complete sentences AUSCULTATION: clear to auscultation bilaterally Cardio: COMMON NORMALS: regular rate and regular rhythm RATE: regular rate RHYTHM: regular rhythm GI: COMMON NORMALS: Soft to palpation PALPATION: Yes Soft to palpation and No Tenderness to palpation present (GI) Extremity: GENERAL: Yes normal exam except as noted and No edema Neuro: COMMON NORMALS: patient oriented x3, CN's II-XII intact bilaterally, moves all extremities, no focal motor deficits, no sensory deficits noted and gait normal SENSORIUM/ORIENTATION: Yes alert and No Orientation impaired Psych: COMMON NORMALS: mental status grossly normal and Normal thought process present THOUGHT PROCESS: Normal thought process present Course Vital Signs: Vital signs: Vital Signs Temperature 97.7 F 03/15/22 16:45 Pulse Rate 75 03/15/22 20:23 Respiratory Rate 16 03/15/22 18:49 Blood Pressure 151/66 03/15/22 20:23 Pulse Oximetry 96 03/15/22 20:21 Oxygen Delivery Me thod 03/15/22 20:21 MDM - Dizziness Medical Decision Making 77-year-old gentleman presenting with abnormal neurologic event that has resolved possibly related to low blood pressure. No neurologic deficits appreciated on clinical exam. EKG shows atrial fibrillation with interventricular conduction delay, no STEMI. Labs with no significant hematologic abnormality. Metabolic panel with perhaps mild dehydration with elevated creatinine and mild transaminitis of uncertain etiology. 2-hour delta troponin is negative. No evidence of UTI, hematuria present. Orthostatics positive. Patient treated with IV fluids and feels improved with appearance of abnormal neurologic symptoms. The results of ED evaluation were discussed with the patient including possible disposition options, patient prefers discharge. I discussed prescriptions and/or symptomatic cares (if applicable) including appropriate and responsible use, followup plan, and return precautions. The patient verbalized understanding and felt safe for discharge. Medical Records I reviewed the patient's medical records. Lab Data I reviewed the patient's lab results. 03/15/22 18:15 03/15/22 18:15 Radiology Impressions Chest X-Ray 03/15/22 17:23 IMPRESSION: 1. The lungs are hyperinflated, suggesting COPD. 2. No consolidative pulmonary infiltrate noted. 3. There is no interval change from the prior examination. Head CT 03/15/22 17:23 IMPRESSION: 1. No acute intracranial abnormality demonstrated. 2. Mucoperiosteal thickening noted throughout the paranasal sinuses. No air-fluid levels in the sinuses. Laboratory Results WBC 9.3 10^3/uL (4.0-10.0) 03/15/22 18:15 RBC 4.94 10^6/uL (4.1-5.3) 03/15/22 18:15 Hgb 15.1 g/dL (11.7-16.6) 03/15/22 18:15 Hct 45.6 % (42.0-52.0) 03/15/22 18:15 MCV 92.3 fl (80-94) 03/15/22 18:15 MCH 30.6 pg (28.0-34.0) 03/15/22 18:15 MCHC 33.1 g/dL (30.0-36.0) 03/15/22 18:15 RDW 14.4 % (12.1-15.1) 03/15/22 18:15 Plt Count 232 10^3/cmm (130-400) 03/15/22 18:15 MPV 10.3 fL (7.4-10.4) 03/15/22 18:15 Neut % (Auto) 61.5 % 03/15/22 18:15 Lymph % (Auto) 14.9 % 03/15/22 18:15 [place] % (Auto) 11.0 % 03/15/22 18:15 Eos % (Auto) 11.6 % 03/15/22 18:15 Baso % (Auto) 0.5 % 03/15/22 18:15 Neut # (Auto) 5.74 10^3/uL (1.8-7.7) 03/15/22 18:15 Lymph # (Auto) 1.4 10^3/uL (0.8-4.8) 03/15/22 18:15 [place] # (Auto) 1.0 10^3/uL (0.2-0.9) H 03/15/22 18:15 Eos # (Auto) 1.1 10^3/uL (0.0-0.8) H 03/15/22 18:15 Baso # (Auto) 0.1 10^3/uL (0.0-0.1) 03/15/22 18:15 Nucleated RBC % (auto) 0 % 03/15/22 18:15 Nucleated RBCs # 0.0 /100WBC 03/15/22 18:15 Sodium 136 mmol/L (136-145) 03/15/22 18:15 Potassium 3.6 mmol/L (3.5-5.1) 03/15/22 18:15 Chloride 99 mmol/L (98-107) 03/15/22 18:15 Carbon Dioxide 27 mmol/L (22-29) 03/15/22 18:15 Anion Gap 13.6 (5-19) 03/15/22 18:15 BUN 26 mg/dL (8-23) H 03/15/22 18:15 Creatinine 1.6 mg/dL (0.7-1.2) H 03/15/22 18:15 GFR Calculation Not Reportable 03/15/22 18:15 Glucose 254 mg/dL (65-115) H 03/15/22 18:15 Calculated Osmolality 295 mOsm/kg (285-295) 03/15/22 18:15 Calcium 9.2 mg/dL (8.5-10.5) 03/15/22 18:15 Total Bilirubin 0.6 mg/dL (0.15-1.2) 03/15/22 18:15 AST 45 U/L (0-40) H 03/15/22 18:15 ALT 49 U/L (0-41) H 03/15/22 18:15 Alkaline Phosphatase 254 U/L (40-130) H 03/15/22 18:15 Troponin T Baseline 37 ng/L (0-15) H 03/15/22 18:15 Troponin T 120 Minute 31.12 ng/L (0-15) H 03/15/22 20:19 Delta Troponin T -5.88 ABS# (0-10) L 03/15/22 20:19 Total Protein 7.6 g/dL (6.6-8.7) 03/15/22 18:15 Albumin 3.5 g/dL (3.5-5.2) 03/15/22 18:15 Globulin 4.1 g/dL (1.3-4.6) 03/15/22 18:15 TSH 3.70 uIU/mL (0.27-4.20) 03/15/22 18:15 Urine Color Yellow (Yellow) 03/15/22 18:54 Urine Appearance Clear (CLEAR) 03/15/22 18:54 Urine pH 6 (5-7) 03/15/22 18:54 Ur Specific [place] 1.010 (1.005-1.030) 03/15/22 18:54 Urine Protein 1+ (Negative) H 03/15/22 18:54 Urine Glucose (UA) Norm (Normal) 03/15/22 18:54 Urine Ketones Negative (Negative) 03/15/22 18:54 Urine Blood 2+ (Negative) H 03/15/22 18:54 Urine Nitrate Negative (Negative) 03/15/22 18:54 Urine Bilirubin Neg (Negative) 03/15/22 18:54 Urine Urobilinogen Norm mg/dL (Negative) 03/15/22 18:54 Ur Leukocyte Esterase Negative (Negative) 03/15/22 18:54 Urine RBC 5-10 /hpf (0-2) H 03/15/22 18:54 Urine WBC 0-4 /hpf (0-5) H 03/15/22 18:54 Ur Squamous Epith Cells 0-4 /hpf (0-5) H 03/15/22 18:54 Amorphous Sediment Not Reportable 03/15/22 18:54 Urine Bacteria Trace /hpf (NONE) 03/15/22 18:54 Hyaline Casts 5-10 /lpf H 03/15/22 18:54 Discharge Plan Discharge Patient Disposition: Home Clinical Impression: Pre-syncope, Orthostatic hypotension, Dehydration Condition: Stable Prescriptions: No Action rosuvastatin 40 mg tablet 40 mg PO DAILY pantoprazole 40 mg tablet,delayed release (DR/EC) 40 mg PO BID triamcinolone acetonide 0.1 % ointment 1 applic topical BID Qty: 453.6 1RF Rx Instructions: to trunk and extremities no more than 2 wks/mo mupirocin 2 % ointment 1 applic topical BID 14 Days Qty: 22 3RF carvedilol 25 mg tablet 25 mg PO BID Qty: 180 3RF Rx Instructions: must administer with a meal/food triamterene-hydrochlorothiazid 75-50 mg tablet 1 tab PO DAILY insulin glargine [Lantus Solostar U-100 Insulin] 100 unit/mL (3 mL) insulin pen 30 unit SUBCUT BID Qty: 15 5RF Rx Instructions: 340B hydralazine 10 mg tablet 10 mg PO TID Qty: 90 1RF lisinopril 40 mg tablet 40 mg PO DAILY Qty: 90 1RF Hold Instructions: Resume on 09/28/21. Xarelto 10 mg tablet 10 mg PO DAILY Qty: 90 3RF glipizide 10 mg tablet extended release 24hr 10 mg PO DAILY allopurinol 100 mg Tablet 100 mg PO DAILY magnesium 250 mg Tablet 250 mg PO DAILY fluticasone propionate 50 mcg/actuation [place],Suspension 2 spray INTRANASAL DAILY PRN (Reason: Nasal Congestion) Rx Instructions: administer into each nostril sildenafil (pulm.hypertension) 20 mg tablet See Rx Instructions .ROUTE .COMPLEX PRN (Reason: Desired Effect) Rx Instructions: 20 mg orally 1-4 hours before desired effect - no more than 2 tablets in a 24 hour period Xyzal 5 mg Tablet 5 mg PO DAILY potassium chloride 20 mEq Tablet Extended Release 20 meq PO DAILY Hold Instructions: Resume on 09/28/21. Discharge Orders: Discharge ED (Routine); Ordered 03/15/22 Ordered By: Shawn Russo Referrals: Delfino Flowers DO [Primary Care Provider] - Discharge Diet: Usual diet Discharge Activity: Increase activity as tolerated Patient Instructions: Near Syncope (ED) Activity Restrictions/Additional Instructions: Thank you for visiting the emergency department. You were seen and evaluated for abnormal dizziness episode. The exact cause of your symptoms is unclear though may be related to mild dehydration. Please ensure that you are staying hydrated. Please follow-up with your primary care provider. Return to the emergency department for recurrent symptoms, any new neurologic deficits, or anything else that you are concerned about and feel needs emergency department evaluation. Coding Level of Care Code ED Student Development Coordinator for Lois Greco
--- NOTE | 2022-03-15 17:23 | CTR_ITS ---
PROCEDURE INFORMATION: Exam: CT Head Without Contrast Exam date and time: 03/15/2022 5:34 PM Age: 76 years old Clinical indication: Dizziness; Additional info: Near syncope TECHNIQUE: Imaging protocol: Computed tomography of the head without contrast. Radiation optimization: All CT scans at this facility use at least one of these dose optimization techniques: automated exposure control; mA and/or kV adjustment per patient size (includes targeted exams where dose is matched to clinical indication); or iterative reconstruction. COMPARISON: No relevant prior studies available. RADIATION DOSE METRICS: Total DLP (mGy-cm): 1158.94 FINDINGS: Brain: Age related parenchymal volume loss noted. There is decreased attenuation of the periventricular white matter, consistent with chronic microangiopathic white matter disease. Old right posterior parietal infarct. No parenchymal edema identified. No intracranial hemorrhage noted. Cerebral ventricles: No ventriculomegaly. Paranasal sinuses: Mucoperiosteal thickening noted throughout the paranasal sinuses. No air-fluid levels in the sinuses. Mastoid air cells: Unremarkable as visualized. No mastoid effusion. Orbital cavities: No acute abnormality of the orbits demonstrated. Bones/joints: Unremarkable. No acute fracture. Soft tissues: The soft tissues are unremarkable as demonstrated. CT/CT head wo con* [id number] IMPRESSION: 1. No acute intracranial abnormality demonstrated. 2. Mucoperiosteal thickening noted throughout the paranasal sinuses. No air-fluid levels in the sinuses.
--- NOTE | 2022-03-15 17:23 | XRR_ITS ---
PROCEDURE INFORMATION: Exam: XR Chest Exam date and time: 03/15/2022 5:41 PM Age: 76 years old Clinical indication: Other: Syncope; Additional info: Presyncope TECHNIQUE: Imaging protocol: Radiologic exam of the chest. Views: 1 view. COMPARISON: CR XR chest 2V* [id number] 11/11/2021 11:06 AM FINDINGS: Lungs: The lungs are hyperinflated, suggesting COPD. No consolidative pulmonary infiltrate noted. Pleural spaces: No pleural effusion. No pneumothorax. Heart/Mediastinum: No cardiomegaly. Bones/joints: Old healed left rib fractures. Degenerative thoracic spine changes are noted. XR/XR chest 1V portable [id number] IMPRESSION: 1. The lungs are hyperinflated, suggesting COPD. 2. No consolidative pulmonary infiltrate noted. 3. There is no interval change from the prior examination.
--- NOTE | 2022-03-15 17:30 | ECG_ITS ---
[facility] Test Date: 2022-03-15 Pat Name: Andrés Dumont Department: Room: Gender: Male Vice President Underwriting: : 1945 Requested By: Shawn Russo Order Number: [id number] Twila MD: Destiney Pierson M.D. Measurements Intervals [place] Rate: 73 P: 0 SC: 0 QRS: -53 QRSD: 94 T: 31 QT: 430 QTc: 476 Interpretive Statements ATRIAL FIBRILLATION INCOMPLETE RIGHT BUNDLE BRANCH BLOCK LEFT ANTERIOR FASCICULAR BLOCK ANTERIOR MYOCARDIAL INFARCTION , PROBABLY OLD INFERIOR MYOCARDIAL INFARCTION , OF INDETERMINATE AGE Compared to ECG 01/14/2022 23:08:56 Incomplete right bundle-branch block now present Left anterior fascicular block now present Left-axis deviation no longer present Myocardial infarct finding still present Electronically Signed On 03-16-2022 8:17:59 RESOURCE SPECIALIST TEACHER by Destiney Pierson M.D. [id number]
[2022-03-15 18:25] LABS: Basophils # 0.1 10^3/uL (0.0-0.1); Basophils % 0.5 %; Eosinophils # 1.1 10^3/uL (0.0-0.8); Eosinophils % 11.6 %; Hematocrit 45.6 % (42.0-52.0); Hemoglobin 15.1 g/dL (11.7-16.6); Lymphocytes # 1.4 10^3/uL (0.8-4.8); Lymphocytes % 14.9 %; Mean Corpuscular HGB Conc 33.1 g/dL (30.0-36.0); Mean Corpuscular Hemoglobin 30.6 pg (28.0-34.0); Mean Corpuscular Volume 92.3 fl (80-94); Mean Platelet Volume 10.3 fL (7.4-10.4); Neutrophils # 5.74 10^3/uL (1.8-7.7); Neutrophils % 61.5 %; Nucleated Red Blood Cells % 0 %; Platelet Count 232 10^3/cmm (130-400); Red Blood Count 4.94 10^6/uL (4.1-5.3); Red Cell Distribution Width 14.4 % (12.1-15.1); White Blood Count 9.3 10^3/uL (4.0-10.0)
[2022-03-15 18:45] LABS: Troponin(5th) Baseline 37 ng/L (0-15)
[2022-03-15 18:49] VITALS: BP 151/76; PULSE 85; RESP 16; O2SAT 96
[2022-03-15 18:51] LABS: Alanine Aminotransferase 49 U/L (0-41); Albumin Level 3.5 g/dL (3.5-5.2); Alkaline Phosphatase 254 U/L (40-130); Anion Gap 13.6 (5-19); Aspartate Amino Transferase 45 U/L (0-40); Blood Urea Nitrogen 26 mg/dL (8-23); Calcium 9.2 mg/dL (8.5-10.5); Carbon Dioxide 27 mmol/L (22-29); Chloride 99 mmol/L (98-107); Globulin 4.1 g/dL (1.3-4.6); Glucose 254 mg/dL (65-115); Osmolality Calculated 295 mOsm/kg (285-295); Potassium 3.6 mmol/L (3.5-5.1); Sodium 136 mmol/L (136-145); Total Bilirubin 0.6 mg/dL (0.15-1.2); Total Protein 7.6 g/dL (6.6-8.7)
[2022-03-15] MEDS: sodium chloride 0.9% 1,000 ML 999 ML IV (18:52)
[2022-03-15 19:09] LABS: Add Urine Microscopic? YES; Bacteria Urine TRACE /hpf; Bilirubin Urine Neg (Negative); Blood Urine 2+ (Negative); Glucose Urine UA Norm (Normal); Ketones Urine Negative (Negative); Leukocyte Esterase Urine Negative (Negative); Nitrate Urine Negative (Negative); Protein Urine 1+ (Negative); Squamous Epithelial Cell Urine 0-4 /hpf (0-5); Urine Appearance Clear (CLEAR); Urine Color Yellow (Yellow); Urobilinogen Urine Norm (Negative); WBC Urine 0-4 /hpf (0-5); pH Urine 6 (5-7)
[2022-03-15 19:10] LABS: Add Urine Culture? No
--- NOTE | 2022-03-15 19:24 | ECG_ITS ---
[facility] Test Date: 2022-03-15 Pat Name: Andrés Dumont Department: Room: Gender: Male Telecommunications Line Installer: : 1945 Requested By: Shawn Russo Order Number: [id number] Twila MD: Destiney Pierson M.D. Measurements Intervals [place] Rate: 63 P: 0 MS: 0 QRS: -54 QRSD: 90 T: 45 QT: 436 QTc: 447 Interpretive Statements ATRIAL FIBRILLATION POSSIBLE RIGHT VENTRICULAR CONDUCTION DELAY [RSR (QR) IN V1/V2] LEFT ANTERIOR FASCICULAR BLOCK [QRS AXIS <= -45, QR IN I, RS IN II] SEPTAL MYOCARDIAL INFARCTION , OF INDETERMINATE AGE [40+ ms Q WAVE IN V1/V2] INFERIOR MYOCARDIAL INFARCTION , PROBABLY OLD Compared to ECG 03/15/2022 17:30:19 Incomplete right bundle-branch block no longer present Myocardial infarct finding still present Electronically Signed On 03-16-2022 8:26:25 OBSTETRICS SCRUB NURSE by Destiney Pierson M.D. [id number]
[2022-03-15 20:21] VITALS: BP 135/66; O2SAT 96
[2022-03-15 20:23] VITALS: BP 115/52; BP 135/66; BP 151/66; PULSE 67; PULSE 75; PULSE 80
[2022-03-15 21:15] LABS: Troponin 5 2HR 31.12 ng/L (0-15); Troponin 5 2HR Delta -5.88 ABS# (0-10)
== END 2022-03-15 20:20 | disposition home or self-care (01) ==
PROVIDERS: Emergency Provider Emergency Medicine; PCP Family Medicine
DX: I95.1 Orthostatic hypotension (principal); E86.0 Dehydration; Z79.4 Long term (current) use of insulin; Z79.84 Long term (current) use of oral hypoglycemic drugs; Z87.891 Personal history of nicotine dependence; E11.9 Type 2 diabetes mellitus without complications; I10 Essential (primary) hypertension
CPT/HCPCS: 70450; 71045; 80053; 81001; 84443; 84484; 85025; 93005; 99285; J7030

== ENCOUNTER → 2022-04-30 13:41 | Outpatient (BNVA) | payer MEDICARE, OTHER, SELFPAY | PROVIDERS: PCP Family Medicine; Visit Provider Podiatrist Foot & Ankle Surgery | DX: E11.621 Type 2 diabetes mellitus with foot ulcer (principal); Z79.4 Long term (current) use of insulin; L97.411 Non-pressure chronic ulcer of right heel and midfoot limited to breakdown of skin; I73.9 Peripheral vascular disease, unspecified; E11.42 Type 2 diabetes mellitus with diabetic polyneuropathy | CPT/HCPCS: 99214 ==

== ENCOUNTER → 2022-05-08 13:34 | Outpatient (BNVA) | payer MEDICARE, OTHER, SELFPAY | PROVIDERS: PCP Family Medicine; Visit Provider Internal Medicine | DX: I10 Essential (primary) hypertension (principal); G47.30 Sleep apnea, unspecified; I48.91 Unspecified atrial fibrillation; Z87.891 Personal history of nicotine dependence | CPT/HCPCS: 99214 ==

== ENCOUNTER → 2022-06-18 12:32 | Outpatient (BNVA) | payer MEDICARE, OTHER, SELFPAY | PROVIDERS: PCP Family Medicine; Visit Provider Podiatrist Foot & Ankle Surgery | DX: E11.42 Type 2 diabetes mellitus with diabetic polyneuropathy (principal); I73.9 Peripheral vascular disease, unspecified; Z79.4 Long term (current) use of insulin | CPT/HCPCS: 99213 ==

== ENCOUNTER → 2022-08-20 12:22 | Outpatient (BNVA) | payer MEDICARE, OTHER, SELFPAY | PROVIDERS: PCP Family Medicine; Visit Provider Podiatrist Foot & Ankle Surgery | DX: E11.42 Type 2 diabetes mellitus with diabetic polyneuropathy (principal); I73.9 Peripheral vascular disease, unspecified; Z79.4 Long term (current) use of insulin | CPT/HCPCS: 99213 ==

== ENCOUNTER → 2022-10-21 11:10 | Outpatient (BNVA) | payer MEDICARE, OTHER, SELFPAY | PROVIDERS: PCP Family Medicine; Visit Provider Podiatrist Foot & Ankle Surgery | DX: E11.42 Type 2 diabetes mellitus with diabetic polyneuropathy (principal); I73.9 Peripheral vascular disease, unspecified; Z79.4 Long term (current) use of insulin | CPT/HCPCS: 99213 ==

== ENCOUNTER → 2022-11-03 11:09 | Outpatient (BNVA) | payer MEDICARE, OTHER, SELFPAY | PROVIDERS: PCP Family Medicine; Visit Provider Family Medicine | DX: I10 Essential (primary) hypertension (principal); E11.9 Type 2 diabetes mellitus without complications; Z79.4 Long term (current) use of insulin; Z79.01 Long term (current) use of anticoagulants; I48.91 Unspecified atrial fibrillation; I73.9 Peripheral vascular disease, unspecified | CPT/HCPCS: 80053; 80061; 82306; 83036; 84443; 85025; G0103 ==

== ENCOUNTER → 2022-11-06 12:50 | Outpatient (BNVA) | payer MEDICARE, OTHER, SELFPAY | PROVIDERS: PCP Electrodiagnostic Medicine; Visit Provider Internal Medicine | DX: I10 Essential (primary) hypertension (principal); E11.42 Type 2 diabetes mellitus with diabetic polyneuropathy; N17.9 Acute kidney failure, unspecified; G47.30 Sleep apnea, unspecified; I48.91 Unspecified atrial fibrillation; R07.9 Chest pain, unspecified; R06.02 Shortness of breath; Z87.891 Personal history of nicotine dependence; Z79.4 Long term (current) use of insulin | CPT/HCPCS: 36415; 80048; 83880; 99214 ==

== ENCOUNTER 2022-11-20 08:19 | Outpatient (CLI) | payer MEDICARE, OTHER, SELFPAY ==
--- NOTE | 2022-11-20 08:45 | USCV_ITS ---
Tim Andrés Age: 77 Gender: M : 1945 Exam Date: 11/20/2022 09:06 Ordering Phys: Duane Mccullough M.D ([email or web address]) Technologist: Carlos Richey Exam Location: [facility] Indication: chest pain BP: 148 / 80 HR: 60 Rhythm: Sinus Technical Quality: Adequate MEASUREMENTS (Male / Female) Normal Values 2D ECHO LV Diastolic Diameter PLAX 4.4 cm 4.2 - 5.9 / 3.9 - 5.3 cm LV Systolic Diameter PLAX 3.0 cm IVS Diastolic Thickness 1.3 cm 0.6 - 1.0 / 0.6 - 0.9 cm IVS Systolic Thickness 1.8 cm LVPW Diastolic Thickness 1.4 cm 0.6 - 1.0 / 0.6 - 0.9 cm LVPW Systolic Thickness 2.0 cm LVOT Diameter 2.0 cm LV Ejection Fraction 2D Teich 61.4 % LV Ejection Fraction MOD 2C 71.9 % LV Ejection Fraction 2C AL 72.1 % LA Diameter 5.0 cm LA Width 4.9 cm M-MODE Aortic Annulus Diameter 3.1 cm LA Ao Ratio MM 1.6 MV E Point Septal Separation 1.5 cm DOPPLER AV Peak Velocity 102.7 cm/s LVOT Peak Velocity 96.0 cm/s AV Area Cont Eq vti 3.2 cm squared AV Area Cont Eq pk 3.1 cm squared MV Area PHT 4.9 cm squared Mitral E to A Ratio 3.4 MV E' Velocity 107.0 cm/s TR Peak Velocity 157.0 cm/s TR Peak Gradient 9.9 mmHg Right Atrial Pressure 3.0 mmHg Pulmonary Artery Systolic Pressu 12.9 mmHg RV Acceleration Time 0.1 s FINDINGS Left Ventricle Technically limited quality echocardiogram because of poor ultrasonic windows. Left ventricle is normal in size. LV systolic function is normal with EF of 60-65 %. No regional wall motion abnormalities are seen. Right Ventricle Normal in size and function Right Atrium Not well visualized Left Atrium Normal in size Mitral Valve Structurally normal mitral valve. Mild mitral regurgitation. Aortic Valve Grossly normal Tricuspid Valve Mild tricuspid regurgitation. Insufficient TR jet to calculate RVSP. Pulmonic Valve Not well-visualized Pericardium Normal Aorta Normal in size IVC Not well visualized CONCLUSIONS Technically limited quality echocardiogram because of poor ultrasonic windows. LV systolic function is normal with EF of 60 to 65% Mild mitral regurgitation. Mild tricuspid regurgitation Accurate comparison with prior echocardiogram not possible because of limited ultrasonic windows on current study. Duane Mccullough MD (Electronically Signed) Final Date: 05 December 2022 14:04 S
[2022-11-20 09:02] LABS: Anion Gap 11.7 (5-19); Blood Urea Nitrogen 26 mg/dL (8-23); Carbon Dioxide 32 mmol/L (22-29); Chloride 96 mmol/L (98-107); Glucose 180 mg/dL (65-115); NT Pro B Type Natriuretic Pept 2158 pg/mL (0-450); Osmolality Calculated 291 mOsm/kg (285-295); Potassium 3.7 mmol/L (3.5-5.1); Sodium 136 mmol/L (136-145)
[2022-11-20] MEDS: perflutren protein-a microsphr 0.22 mg/mL SDV 3 mL IV (10:07)
== END 2022-11-20 08:20 | disposition home or self-care (01) ==
PROVIDERS: PCP Electrodiagnostic Medicine; Visit Provider Internal Medicine
DX: R07.9 Chest pain, unspecified; R06.02 Shortness of breath; N17.9 Acute kidney failure, unspecified; I48.91 Unspecified atrial fibrillation
CPT/HCPCS: 36415; 80048; 83880; 93325; C8924; Q9956

== ENCOUNTER → 2023-01-27 09:38 | Outpatient (BNVA) | payer MEDICARE, OTHER, SELFPAY | PROVIDERS: PCP Electrodiagnostic Medicine; Visit Provider Podiatrist Foot & Ankle Surgery | DX: E11.42 Type 2 diabetes mellitus with diabetic polyneuropathy (principal); L60.3 Nail dystrophy; L84 Corns and callosities; Z79.84 Long term (current) use of oral hypoglycemic drugs; I73.9 Peripheral vascular disease, unspecified | CPT/HCPCS: 11055; 11721 ==

== ENCOUNTER → 2023-05-13 09:58 | Outpatient (BNVA) | payer MEDICARE, OTHER, SELFPAY | PROVIDERS: PCP Electrodiagnostic Medicine; Visit Provider Podiatrist Foot & Ankle Surgery | DX: E11.42 Type 2 diabetes mellitus with diabetic polyneuropathy (principal); I73.9 Peripheral vascular disease, unspecified; L84 Corns and callosities; Z79.4 Long term (current) use of insulin | CPT/HCPCS: 99213 ==

== ENCOUNTER → 2023-05-14 13:18 | Outpatient (BNVA) | payer MEDICARE, OTHER, SELFPAY | PROVIDERS: PCP Electrodiagnostic Medicine; Visit Provider Internal Medicine | DX: I10 Essential (primary) hypertension (principal); R07.9 Chest pain, unspecified; G47.30 Sleep apnea, unspecified; I48.91 Unspecified atrial fibrillation; Z87.891 Personal history of nicotine dependence; Z79.01 Long term (current) use of anticoagulants | CPT/HCPCS: 99214 ==

== ENCOUNTER 2023-05-21 06:51 | Outpatient (CLI) | payer MEDICARE, OTHER, SELFPAY ==
--- NOTE | 2023-05-21 | ECG_ITS ---
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 Interpretive Statements NAME OF STUDY: LEXISCAN SESTAMIBI STRESS TEST INDICATION: [Chest Pain, Shortness of breath, ] Procedure: At the baseline, the blood pressure was 150/85 mmHg with a heart rate of 76 bpm. The electrocardiogram showed atrial fibrillation, normal axis with normal ST and T's. The Lexiscan was infused over a period of 20 seconds. A total of 0.4 mg of Lexiscan was infused. The stress phase was continued for a total of 5 minutes. Heart rate was at the end of stress phase was 77 bpm and a blood pressure of 104/52 mmHg. The EKG at the peak infusion revealed normal sinus rhythm with no significant ST-T wave changes. Sestamibi was injected 20 seconds after the Lexiscan infusion. Blood pressure at the end of recovery phase was 111/55 mmHg with a heart rate of 85 bpm. Conclusion: 1. Normal EKG response to Lexiscan infusion 2. No Lexiscan induced chest pain or cardiac arrhythmia. 3. Normal blood pressure and heart rate response. 4. Sestamibi/sestamibi perfusion scan pending; see separate report. Electronically Signed On 06-04-2023 10:48:00 CDT by Duane Mccullough M.D. [id number]
--- NOTE | 2023-05-21 08:01 | NMCV_ITS ---
NM vianey perf SPECT r/s* [id number] Andrés Dumont Age: 78 Gender: M : 1945 Exam Date: 05/21/2023 07:51 Ordering Phys: Duane Mccullough M.D ([email or web address]) Technologist: KENNETH Mullins Exam Location: [facility] Indications: CHEST PAIN STRESS TEST [facility] IMAGE PROTOCOL Rest/Stress 1 Lexiscan Day Radiopharmaceutical Dose (mCi) Administration Site Administered by Rest: Tc-99m 11.0 IV KENNETH Newsome Sestamibi Stress:Tc-99m 33.0 IV KENNETH Newsome Sestamibi Rest: 21-May-2023 60 Discovery 630 Stress: 21-May-2023 30 Discovery 630 0.4mg Lexiscan. Images obtained in supine and prone position. SPECT RESULTS Technical Quality: Excellent Raw Data Analysis: Normal Image Corrections: No attenuation or motion correction applied Summed Stress Score: 0 Summed Rest Score: 0 Summed Difference Score: 0 PERFUSION FINDINGS SPECT images demonstrate homogeneous tracer distribution throughout the myocardium. FUNCTIONAL RESULTS (calculated via Gated SPECT) Stress Image LV EF (%): 72 Stress EDV (mL):75 TID: 1.02 Stress ESV (mL):21 FUNCTIONAL FINDINGS: There is normal left ventricular systolic function. IMPRESSIONS 1. Normal myocardial perfusion imaging with no evidence of ischemia 2. LV systolic function is normal Duane Mccullough MD (Electronically Signed) Final Date: 21 May 2023 10:38 S
[2023-05-21 08:02] VITALS: BMI 30.8
[2023-05-21] MEDS: regadenoson 0.4 Mg/5 ml Syringe 0.400000000000000022 MG IVP (08:31)
[2023-05-21 08:49] VITALS: BP 105/54; PULSE 84
== END 2023-05-21 06:52 | disposition home or self-care (01) ==
PROVIDERS: PCP Electrodiagnostic Medicine; Visit Provider Internal Medicine
DX: R07.9 Chest pain, unspecified (principal); R06.02 Shortness of breath
CPT/HCPCS: 36415; 78452; 93017; 96374; A9500; J2785

== ENCOUNTER → 2023-08-05 09:45 | Outpatient (BNVA) | payer MEDICARE, OTHER, SELFPAY | PROVIDERS: PCP Electrodiagnostic Medicine; Visit Provider Podiatrist Foot & Ankle Surgery | DX: E11.42 Type 2 diabetes mellitus with diabetic polyneuropathy (principal); I73.9 Peripheral vascular disease, unspecified; L84 Corns and callosities; L60.3 Nail dystrophy; Z79.4 Long term (current) use of insulin | CPT/HCPCS: 11056; 11721 ==

== ENCOUNTER → 2023-11-04 09:18 | Outpatient (BNVA) | payer MEDICARE, OTHER, SELFPAY | PROVIDERS: PCP Family Medicine; Visit Provider Podiatrist Foot & Ankle Surgery | DX: E11.8 Type 2 diabetes mellitus with unspecified complications (principal); E11.42 Type 2 diabetes mellitus with diabetic polyneuropathy; I73.9 Peripheral vascular disease, unspecified; L84 Corns and callosities; L60.3 Nail dystrophy | CPT/HCPCS: 11056; 11721 ==

== ENCOUNTER → 2023-11-16 12:39 | Outpatient (BNVA) | payer MEDICARE, OTHER, SELFPAY | PROVIDERS: PCP Family Medicine; Visit Provider Internal Medicine | DX: I10 Essential (primary) hypertension (principal); G47.30 Sleep apnea, unspecified; I48.91 Unspecified atrial fibrillation; Z79.01 Long term (current) use of anticoagulants | CPT/HCPCS: 99214 ==

== ENCOUNTER → 2024-02-08 09:13 | Outpatient (BNVA) | payer MEDICARE, OTHER, SELFPAY | PROVIDERS: PCP Family Medicine; Visit Provider Podiatrist Foot & Ankle Surgery | DX: E11.8 Type 2 diabetes mellitus with unspecified complications (principal); E11.42 Type 2 diabetes mellitus with diabetic polyneuropathy; I73.9 Peripheral vascular disease, unspecified; L84 Corns and callosities; L60.3 Nail dystrophy; Z79.4 Long term (current) use of insulin | CPT/HCPCS: 11056; 11721 ==

== ENCOUNTER → 2024-03-28 10:30 | Outpatient (BNVA) | payer MEDICARE, OTHER, SELFPAY | PROVIDERS: PCP Family Medicine; Visit Provider Internal Medicine | DX: I10 Essential (primary) hypertension (principal); G47.30 Sleep apnea, unspecified; I48.91 Unspecified atrial fibrillation; Z87.891 Personal history of nicotine dependence | CPT/HCPCS: 99214 ==

== ENCOUNTER → 2024-05-09 08:42 | Outpatient (BNVA) | payer MEDICARE, OTHER, SELFPAY | PROVIDERS: PCP Electrodiagnostic Medicine; Visit Provider Podiatrist Foot & Ankle Surgery | DX: E11.8 Type 2 diabetes mellitus with unspecified complications (principal); L60.3 Nail dystrophy; L84 Corns and callosities; E11.42 Type 2 diabetes mellitus with diabetic polyneuropathy; I73.9 Peripheral vascular disease, unspecified; Z79.4 Long term (current) use of insulin | CPT/HCPCS: 11056; 11721 ==

== ENCOUNTER 2024-05-17 11:28 | Inpatient (IN) | payer MEDICARE, OTHER, SELFPAY ==
[2024-05-17] VITALS (10 sets, daily range): BP systolic 96–181; BP diastolic 52–94; PULSE 71–81; RESP 15–19; TEMP 36.3–36.6; O2SAT 93–98; BMI 32.1
--- NOTE | 2024-05-17 11:29 | XRR_ITS ---
PROCEDURE INFORMATION: Exam: XR Chest Exam date and time: 05/17/2024 11:46 AM Age: 79 years old Clinical indication: Other: Weakness TECHNIQUE: Imaging protocol: Radiologic exam of the chest. Views: 1 view. COMPARISON: CR (CHEST, ) 03/15/2022 5:41 PM FINDINGS: Mild rightward rotation. Lungs: The lungs are clear. Pleural spaces: No pneumothorax or pleural effusion. Heart/Mediastinum: Heart size is enlarged. Mediastinal contours unremarkable. Bones/joints: No acute osseous or soft tissue abnormality. XR/XR chest 1V portable [id number] IMPRESSION: 1. The lungs are clear. 2. Cardiomegaly.
--- NOTE | 2024-05-17 11:30 | ECG_ITS ---
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1945 Requested By: Ne Vasquez Order Number: [id number] Reading MD: QUINTON CHURCHILL Measurements Intervals [place] Rate: 72 P: 0 OR: 0 QRS: -28 QRSD: 73 T: 40 QT: 381 QTc: 417 Interpretive Statements ATRIAL FIBRILLATION LOW QRS VOLTAGE IN EXTREMITY LEADS [QRS DEFLECTION < 0.5 mV IN LIMB LEADS] INFERIOR MYOCARDIAL INFARCTION , PROBABLY OLD [40+ ms Q WAVE AND/OR ST/T ABNORMALITY IN II/aVF] ANTEROSEPTAL MYOCARDIAL INFARCTION , PROBABLY OLD [40+ ms Q WAVE IN V1-V4] Compared to ECG 03/15/2022 19:29:03 Low QRS voltage now present Left anterior fascicular block no longer present Myocardial infarct finding still present Electronically Signed On 05-17-2024 23:33:22 DIP FILLER by QUINTON CHURCHILL [id number]
--- NOTE | 2024-05-17 11:50 | W.ED.WEAKNES ---
HPI - Weakness General: Chief complaint: Weakness Stated complaint: weak, not himself Time Seen by Provider: 05/17/24 11:47 Source: patient Mode of arrival: ambulatory Limitations: no limitations History of Present Illness: 79-year-old male who states he has been having increased weakness since Thursday. states today he is having a very hard time walking is not really able to ambulate without assistance. She states he had some slight confusion as well. Said no slurred speech no focal deficits. He denies any fever or recent illness or pain anywhere. Is able to tell me his name and where he lives he does get confused on the day. Associated symptoms: Reports confusion; Denies chest pain, chills, dysuria, fever(s), headache(s), nausea or vomiting Review of Systems Const: Denies: fever(s), chills, body aches or change in appetite Eyes: Denies: blurry vision or eye discomfort ENMT: Denies: throat pain or dental pain Card: Denies: chest pain Resp: Denies: dyspnea GI: Denies: abdominal pain, nausea, vomiting or diarrhea : Denies: dysuria Musc: Denies: neck pain or back pain Skin/Breast: Denies: rash Neuro: Reports: weakness in extremities, difficulty walking and confusion; Denies: headache(s) PFSH ED PFSH: Medical History Hypertension Anticoagulation adequate with anticoagulant therapy Atrial fibrillation with controlled ventricular rate BPH (benign prostatic hyperplasia) Mass of right kidney Diabetes mellitus Acute cholecystitis Callus of foot Chronic ulcer of great toe of right foot, limited to breakdown of skin Hammertoe Peripheral arterial disease Diabetic peripheral neuropathy associated with type 2 diabetes mellitus Diabetes mellitus GERD (gastroesophageal reflux disease) Venous insufficiency Prostatitis, acute Acute cystitis with hematuria Surgical History Hx of cholecystectomy Status post right inguinal hernia repair Status post colonoscopy (12/13/20) descending colon polyp H/O esophagogastroduodenoscopy (12/13/20) normal Hx of tonsillectomy Family History Mother , AT AGE 73 Cancer COLON Father , AT AGE 50 Diabetes Social History Smoking and tobacco/nicotine status: former use of tobacco/nicotine Alcohol intake: current Alcohol intake frequency: holidays/special occasions only Marital status: Current occupational status: retired Physical Exam Const: COMMON NORMALS: no acute distress, healthy appearing and alert; negative for patient oriented x3 ORIENTATION/CONSCIOUSNESS: Yes oriented to person and Yes oriented to place; not oriented to time HENMT: COMMON NORMALS: normocephalic and atraumatic HEAD & SCALP: normocephalic and atraumatic Eye: COMMON NORMALS: conjunctivae normal CONJUNCTIVA: Yes conjunctivae normal Neck/C-Spine: COMMON NORMALS: full ROM and supple Chest: COMMONS NORMALS: normal inspection of the chest Resp: COMMON NORMALS: normal respiratory effort, No retractions, No use of accessory muscles and clear to auscultation bilaterally AUSCULTATION: clear to auscultation bilaterally Cardio: COMMON NORMALS: regular rate, regular rhythm and No murmurs present (Cardio) RATE: regular rate RHYTHM: regular rhythm GI: COMMON NORMALS: Normal to inspection, nondistended, normoactive bowel sounds present, Soft to palpation, non-tender and no masses PALPATION: Yes Soft to palpation Extremity: COMMON NORMALS: normal to inspection and full ROM Neuro: COMMON NORMALS: moves all extremities and no focal motor deficits; negative for patient oriented x3 SENSORIUM/ORIENTATION: Yes alert, Yes oriented to person, Yes oriented to place and No oriented to time Psych: COMMON NORMALS: mental status grossly normal, Normal thought process present and cooperative THOUGHT PROCESS: Normal thought process present Skin: COMMON NORMALS: no rashes or lesions noted and no wounds GENERAL SKIN EXAM: no rashes or lesions noted Course Vital Signs: Vital signs: Vital Signs Temperature 97.6 F 05/17/24 11:31 Pulse Rate 75 05/17/24 14:00 Respiratory Rate 18 05/17/24 13:30 Blood Pressure 147/86 05/17/24 14:00 Pulse Oximetry 96 05/17/24 14:00 Oxygen Delivery Me thod Room Air 05/17/24 14:00 MDM - Weakness Medical Decision Making Patient presents here with some generalized weakness along with confusion going on since Thursday. He has no signs of acute stroke symptoms have been since Thursday he does have confusion here I spoke to hospitalist will admit at this time for observation Medical Records I reviewed the patient's medical records. Lab Data I reviewed the patient's lab results. 05/17/24 11:58 05/17/24 11:58 Radiology Impressions Chest X-Ray 05/17/24 11:29 IMPRESSION: 1. The lungs are clear. 2. Cardiomegaly. Abdomen/Pelvis CT 05/17/24 12:46 IMPRESSION: 1. Coarse hepatic parenchymal enhancement with slight capsular nodularity suspicious for cirrhosis or parenchymal disease. 2. Prominent lymph node in the jose alberto hepatis measuring 12 mm is unchanged since 2021 likely reactive. 3. Small esophageal hiatal hernia. 4. Enlarged enhancing nodular prostate measuring 4.9 cm with bladder outlet obstruction. Recommend correlation PSA. 5. Moderate aortic and vascular calcification. 6. Moderate to severe central canal stenosis L3-L4 and L4-L5 Head CT 05/17/24 12:46 IMPRESSION: 1. No evidence of intracranial hemorrhage or mass effect. 2. 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 This is new since 2021 but has a chronic appearance. 3. Moderate small vessel changes with moderate parenchymal volume loss. 4. Vascular calcification. Laboratory Results WBC 10.12 10^3/uL (3.29-11.43) 05/17/24 11:58 RBC 4.98 10^6/uL (3.85-5.65) 05/17/24 11:58 Hgb 14.90 g/dL (11.27-16.99) 05/17/24 11:58 Hct 46.0 % (37-53) 05/17/24 11:58 MCV 92.4 fl (82-101) 05/17/24 11:58 MCH 29.9 pg (27-33) 05/17/24 11:58 MCHC 32.4 g/dL (30-55) 05/17/24 11:58 RDW 14.5 % (12.1-15.1) 05/17/24 11:58 Plt Count 318 10^3/cmm (157-399) 05/17/24 11:58 MPV 9.9 fL (7.4-10.4) 05/17/24 11:58 Neut % (Auto) 62.9 % 05/17/24 11:58 Lymph % (Auto) 15.5 % 05/17/24 11:58 Woodward % (Auto) 12.2 % 05/17/24 11:58 Eos % (Auto) 8.5 % 05/17/24 11:58 Baso % (Auto) 0.5 % 05/17/24 11:58 Neut # (Auto) 6.37 10^3/uL (1.8-7.7) 05/17/24 11:58 Lymph # (Auto) 1.6 10^3/uL (0.8-4.8) 05/17/24 11:58 Woodward # (Auto) 1.2 10^3/uL (0.2-0.9) H 05/17/24 11:58 Eos # (Auto) 0.9 10^3/uL (0.0-0.8) H 05/17/24 11:58 Baso # (Auto) 0.1 10^3/uL (0.0-0.1) 05/17/24 11:58 Nucleated RBC % (auto) 0 % 05/17/24 11:58 Nucleated RBCs # 0.0 /100WBC 05/17/24 11:58 PT 11.90 SECONDS (12.1-14.9) L 05/17/24 11:58 INR 0.82 (0.8-1.2) 05/17/24 11:58 Sodium 140 mmol/L (136-145) 05/17/24 11:58 Potassium 4.4 mmol/L (3.5-5.1) 05/17/24 11:58 Chloride 104 mmol/L (98-107) 05/17/24 11:58 Carbon Dioxide 25 mmol/L (22-29) 05/17/24 11:58 Anion Gap 15.4 (5-19) 05/17/24 11:58 BUN 17 mg/dL (8-23) 05/17/24 11:58 Creatinine 1.0 mg/dL (0.7-1.2) 05/17/24 11:58 GFR Calculation Not Reportable 05/17/24 11:58 Glucose 112 mg/dL (65-115) 05/17/24 11:58 Calculated Osmolality 292 mOsm/kg (285-295) 05/17/24 11:58 Calcium 9.3 mg/dL (8.5-10.5) 05/17/24 11:58 Total Bilirubin 0.3 mg/dL (0.15-1.2) 05/17/24 11:58 AST 52 U/L (0-40) H 05/17/24 11:58 ALT 73 U/L (0-41) H 05/17/24 11:58 Alkaline Phosphatase 159 U/L (40-130) H 05/17/24 11:58 Ammonia 37 umol/L (16-60) 05/17/24 11:58 Total Protein 7.8 g/dL (6.6-8.7) 05/17/24 11:58 Albumin 4.3 g/dL (3.5-5.2) 05/17/24 11:58 Globulin 3.5 g/dL (1.3-4.6) 05/17/24 11:58 TSH 2.59 uIU/mL (0.27-4.20) 05/17/24 11:58 Urine Color Yellow (Yellow) 05/17/24 12:00 Urine Appearance Clear (CLEAR) 05/17/24 12:00 Urine pH 5.5 (5-7) 05/17/24 12:00 Ur Specific [place] 1.015 (1.005-1.030) 05/17/24 12:00 Urine Protein 2+ (Negative) A 05/17/24 12:00 Urine Glucose (UA) Negative (Normal) 05/17/24 12:00 Urine Ketones Negative (Negative) 05/17/24 12:00 Urine Blood Negative (Negative) 05/17/24 12:00 Urine Nitrate Negative (Negative) 05/17/24 12:00 Urine Bilirubin Negative (Negative) 05/17/24 12:00 Urine Urobilinogen 1.0 mg/dL (Negative) 05/17/24 12:00 Ur Leukocyte Esterase Negative (Negative) 05/17/24 12:00 Urine RBC 0-4 /hpf (0-2) H 05/17/24 12:00 Urine WBC 0-4 /hpf (0-5) H 05/17/24 12:00 Ur Squamous Epith Cells 0-4 /hpf (0-5) H 05/17/24 12:00 Amorphous Sediment Not Reportable 05/17/24 12:00 Urine Bacteria Trace /hpf (NONE) 05/17/24 12:00 Hyaline Casts 5-10 /lpf H 05/17/24 12:00 Urine Mucus 1+ /hpf 05/17/24 12:00 All radiology interpretation(s) finalized by discharge Discharge Plan Discharge Patient Disposition: Placed in Observation Clinical Impression: Weakness, Confusion Coding Level of Care Code 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 [employer]wd Related Data Home Medications ?Medication ?Instructions ?Recorded ?Confirmed pantoprazole 40 mg tablet,delayed 40 mg PO BID 11/19/20 05/17/24 release fluticasone propionate 50 2 spray intranasal DAILY PRN Nasal 09/18/21 05/17/24 mcg/actuation nasal Congestion spray,suspension glipizide 10 mg tablet, extended 10 mg PO DAILY 09/18/21 05/17/24 release 24 hr triamterene 75 1 tab PO DAILY 12/18/21 05/17/24 mg-hydrochlorothiazide 50 mg tablet furosemide 20 mg tablet (Lasix) 20 mg PO DAILY PRN Edema 11/16/23 05/17/24 multivitamin (Multiple Vitamins 1 tab PO DAILY 03/28/24 05/17/24 tablet) insulin glargine 100 unit/mL (3 30 unit SUBCUT BID 05/17/24 05/17/24 mL) subcutaneous pen (Lantus Solostar U-100 Insulin) lisinopril 20 mg tablet 20 mg PO DAILY 05/17/24 05/17/24 potassium chloride 20 mEq 20 meq PO DAILY 05/17/24 05/17/24 tablet,extended release(part/cryst) rosuvastatin 20 mg tablet 20 mg PO DAILY 05/17/24 05/17/24 Previous Rx's ?Medication ?Instructions ?Recorded albuterol sulfate 90 mcg/actuation 2 puff inhalation Q6H PRN 06/07/23 aerosol inhaler (Ventolin HFA) shortness of breath or wheezing #8.5 grams carvedilol 12.5 mg tablet 12.5 mg PO BID #180 tabs 03/28/24 hydralazine 25 mg tablet 25 mg PO BID #180 tabs 03/28/24 rivaroxaban 10 mg tablet (Xarelto) 10 mg PO DAILY #90 tabs 04/26/24 Allergies Allergy/AdvReac Type Severity Reaction Status Date / Time lovastatin Allergy RASH Verified 05/17/24 11:31
[2024-05-17] MEDS: sodium chloride 0.9% 1,000 ML 999 ML IV (12:08)
[2024-05-17 12:11] LABS: Basophils # 0.1 10^3/uL (0.0-0.1); Basophils % 0.5 %; Eosinophils # 0.9 10^3/uL (0.0-0.8); Eosinophils % 8.5 %; Lymphocytes # 1.6 10^3/uL (0.8-4.8); Lymphocytes % 15.5 %; Mean Corpuscular HGB Conc 32.4 g/dL (30-55); Mean Corpuscular Hemoglobin 29.9 pg (27-33); Mean Corpuscular Volume 92.4 fl (82-101); Mean Platelet Volume 9.9 fL (7.4-10.4); Monocytes # 1.2 10^3/uL (0.2-0.9); Monocytes % 12.2 %; Neutrophils # 6.37 10^3/uL (1.8-7.7); Neutrophils % 62.9 %; Nucleated Red Blood Cells % 0 %; Platelet Count 318 10^3/cmm (157-399); Red Blood Count 4.98 10^6/uL (3.85-5.65); Red Cell Distribution Width 14.5 % (12.1-15.1); White Blood Count 10.12 10^3/uL (3.29-11.43)
[2024-05-17 12:11] LABS: Bilirubin Urine Negative (Negative); Blood Urine Negative (Negative); Glucose Urine UA Negative (Normal); Ketones Urine Negative (Negative); Leukocyte Esterase Urine Negative (Negative); Nitrate Urine Negative (Negative); Protein Urine 2+ (Negative); Specific Gravity, Urine 1.015 (1.005-1.030); Urine Appearance Clear (CLEAR); Urine Color Yellow (Yellow); pH Urine 5.5 (5-7)
[2024-05-17 12:30] LABS: Ammonia 37 umol/L (16-60)
--- NOTE | 2024-05-17 12:46 | CT_ITS ---
WS: [id number] CT ABDOMEN PELVIS TECHNIQUE: Contrast-enhanced CT of the abdomen and pelvis with coronal and sagittal reformatted images. CLINICAL INFORMATION: elevated liver enzymes COMPARISON: 2021 DLP: 1177.[address] scans at [facility] use at least one of these dose optimization techniques: automated exposure control; mA and/or kV adjustment per patient size (includes targeted exams where dose is matched to clinical indication); or iterative reconstruction. FINDINGS: Heterogeneous hepatic parenchymal enhancement. Slightly nodular contour to the liver suspicious for cirrhosis or hepatic parenchymal disease. Recommend correlation with liver function tests. Prior cholecystectomy. Normal portal vein and splenic vein. Fatty atrophy of the pancreas. A few slightly prominent jose alberto hepatis lymph nodes nonspecific but likely reactive the largest measuring 13 mm. Tiny cystic lesion in the pancreas unchanged since 2021 Small esophageal hiatal hernia. Splenic granulomas. Adrenal glands are normal. Normal renal parenchymal enhancement. No hydronephrosis. Parenchymal scarring both kidneys. Moderate aortic calcification. Normal caliber abdominal aorta. Moderate stenosis at the celiac and SMA origins with focal calcification. Enlarged heterogeneously enhancing nodular prostate measuring 4.9 cm. Normal sigmoid colon. No evidence of small or large bowel obstruction. Normal appendix. Mild bladder wall thickening likely due to bladder outlet obstruction. Moderate to severe central canal stenosis L3-L4 and L4-L5. CT/CT abdomen pelvis w con* [id number] IMPRESSION: 1. Coarse hepatic parenchymal enhancement with slight capsular nodularity susp icious for cirrhosis or parenchymal disease. 2. Prominent lymph node in the jose alberto hepatis measuring 12 mm is unchanged sinc e 2021 likely reactive. 3. Small esophageal hiatal hernia. 4. Enlarged enhancing nodular prostate measuring 4.9 cm with bladder outlet ob struction. Recommend correlation PSA. 5. Moderate aortic and vascular calcification. 6. Moderate to severe central canal stenosis L3-L4 and L4-L5
--- NOTE | 2024-05-17 12:46 | CT_ITS ---
WS: [id number] CT HEAD TECHNIQUE: Noncontrast CT of the head obtained from the skullbase to the vertex. CLINICAL INFORMATION: weakness COMPARISON: 2021 DLP: 1188.[address] scans at [facility] use at least one of these dose optimization techniques: automated exposure control; mA and/or kV adjustment per patient size (includes targeted exams where dose is matched to clinical indication); or iterative reconstruction. FINDINGS: No evidence of intracranial hemorrhage or mass effect. Ventricular system and basal cisterns are patent. Moderate small vessel changes with moderate parenchymal volume loss. Chronic appearing infarct RIGHT parietal lobe near the vertex with associated encephalomalacia. Small vessel changes in the guzman. A few tiny chronic lacunar infarcts in the cerebellum. Mucosal thickening in the paranasal sinuses. Mastoid air cells are well aerated. Vascular calcification. CT/CT head wo con* [id number] IMPRESSION: 1. No evidence of intracranial hemorrhage or mass effect. 2. Chronic appearing infarct RIGHT parietal lobe posteriorly with encephalomal acia. This is new since 2021 but has a chronic appearance. 3. Moderate small vessel changes with moderate parenchymal volume loss. 4. Vascular calcification.
[2024-05-17 12:51] LABS: Add Urine Microscopic? YES
[2024-05-17 12:52] LABS: Add Urine Culture? No; Bacteria Urine TRACE /hpf; Mucus Urine 1+ /hpf; RBC Urine 0-4 /hpf (0-2); Squamous Epithelial Cell Urine 0-4 /hpf (0-5); WBC Urine 0-4 /hpf (0-5)
[2024-05-17] MEDS: iohexol 350 mg/mL 500 mL Btl (per mL) IV (13:03)
--- NOTE | 2024-05-17 14:52 | PM.HP ---
Providers/Chief Complaint Primary Care Provider: Humberto Griggs DO Chief Complaint: weak, not himself History of Present Illness Andrés Dumont is a 79 year old male With past medical history of hypertension, atrial fibrillation rate controlled, chronic anticoagulation, BPH, diabetes mellitus, cholecystitis in the past, peripheral arterial disease, insulin-dependent diabetes mellitus, GERD, prostatitis and cystitis in the past who presented to the hospital today with creasing weakness since Thursday. Patient is having a hard time walking today as per the and he is not able to ambulate without any assistance. She states he has been quite wobbly and unsteady on his feet. She also has noticed that he has been confused. Denies any slurred speech or focal deficits. Denies fever recent illness pain nausea vomiting diarrhea. Patient was able to tell ER his name and where he lives however does not know what day it is. Ammonia level is normal, TSH is normal. CT head was done which showed no evidence of intracranial hemorrhage or mass effect. Chronic appearing right infarct parietal lobe posteriorly for encephalomalacia. This is new since 2021 but a chronic appearance. Abdomen CT pelvis shows coarse hepatic parenchymal enhancement with slight capsular nodularity suspicious for cirrhosis or parenchymal disease. Prominent lymph node in jose alberto hepatis measuring 12 mm unchanged since 2021 likely reactive. Enlarged enhancing nodular prostate measuring 4.9 cm with bladder outlet obstruction recommend correlation to PSA. Medications/Allergies Home Medications ?Medication ?Instructions ?Recorded ?Confirmed ?Last Taken ?Type pantoprazole 40 mg tablet,delayed 40 mg PO BID 11/19/20 05/17/24 05/17/24 History release fluticasone propionate 50 2 spray intranasal DAILY PRN Nasal 09/18/21 05/17/24 Unknown History mcg/actuation nasal Congestion spray,suspension glipizide 10 mg tablet, extended 10 mg PO DAILY 09/18/21 05/17/24 05/17/24 History release 24 hr triamterene 75 1 tab PO DAILY 12/18/21 05/17/24 05/17/24 History mg-hydrochlorothiazide 50 mg tablet albuterol sulfate 90 mcg/actuation 2 puff inhalation Q6H PRN 06/07/23 05/17/24 Unknown Rx aerosol inhaler (Ventolin HFA) shortness of breath or wheezing #8.5 grams furosemide 20 mg tablet (Lasix) 20 mg PO DAILY PRN Edema 11/16/23 05/17/24 Unknown History carvedilol 12.5 mg tablet 12.5 mg PO BID #180 tabs 03/28/24 05/17/24 05/17/24 Rx hydralazine 25 mg tablet 25 mg PO BID #180 tabs 03/28/24 05/17/24 05/17/24 Rx multivitamin (Multiple Vitamins 1 tab PO DAILY 03/28/24 05/17/24 05/17/24 History tablet) rivaroxaban 10 mg tablet (Xarelto) 10 mg PO DAILY #90 tabs 04/26/24 05/17/24 05/17/24 Rx insulin glargine 100 unit/mL (3 30 unit SUBCUT BID 05/17/24 05/17/24 05/17/24 History mL) subcutaneous pen (Lantus Solostar U-100 Insulin) lisinopril 20 mg tablet 20 mg PO DAILY 05/17/24 05/17/24 05/17/24 History potassium chloride 20 mEq 20 meq PO DAILY 05/17/24 05/17/24 05/17/24 History tablet,extended release(part/cryst) rosuvastatin 20 mg tablet 20 mg PO DAILY 05/17/24 05/17/24 05/16/24 History Allergies Allergy/AdvReac Type Severity Reaction Status Date / Time lovastatin Allergy RASH Verified 05/17/24 11:31 PFSH Acute PFSH: Medical History Hypertension Anticoagulation adequate with anticoagulant therapy Atrial fibrillation with controlled ventricular rate BPH (benign prostatic hyperplasia) Mass of right kidney Diabetes mellitus Acute cholecystitis Callus of foot Chronic ulcer of great toe of right foot, limited to breakdown of skin Hammertoe Peripheral arterial disease Diabetic peripheral neuropathy associated with type 2 diabetes mellitus Diabetes mellitus GERD (gastroesophageal reflux disease) Venous insufficiency Prostatitis, acute Acute cystitis with hematuria Surgical History Hx of cholecystectomy Status post right inguinal hernia repair Status post colonoscopy (12/13/20) descending colon polyp H/O esophagogastroduodenoscopy (12/13/20) normal Hx of tonsillectomy Family History Mother , AT AGE 73 Cancer COLON Father , AT AGE 50 Diabetes Social History Smoking and tobacco/nicotine status: former use of tobacco/nicotine Alcohol intake: current Alcohol intake frequency: holidays/special occasions only Marital status: Current occupational status: retired Vitals/I&O/Wt Last Vital Signs Temp 97.6 F 05/17/24 11:31 Pulse 75 05/17/24 14:00 Resp 18 05/17/24 13:30 BP 147/86 05/17/24 14:00 Pulse Ox 96 05/17/24 14:00 O2 Del Method Room Air 05/17/24 14:00 05/16/24 05/17/24 05/17/24 22:59 06:59 14:59 Intake Total 0 / 0 Balance 0 / 0 Weight last 48 hrs Weight 113.398 kg Physical Exam Narrative: General: Alert oriented x3, patient seen laying in bed appearing comfortable at this time, at bedside. HEENT: Normocephalic, atraumatic, EOMI, breathing room air. Cardio: Irregularly irregular, rate controlled, variable S1-S2 Respiratory: Clear to auscultation bilaterally no wheezes no rhonchi GI: Abdomen soft, nontender, nondistended, bowel sounds + Extremities: No focal neurological deficit. Does report generalized weakness. Gait not tested Data 05/17/24 11:58 05/17/24 11:58 A&P Assessment and plan (1) Weakness: (2) Confusion: (3) Hypertension: Qualifiers: Hypertension type: primary hypertension Qualified Code(s): I10 - Essential (primary) hypertension (4) Atrial fibrillation with controlled ventricular rate: (5) Anticoagulation adequate with anticoagulant therapy: (6) Insulin dependent type 2 diabetes mellitus: (7) BPH loc w urin obs/LUTS: (8) Stroke: (9) Multiple cerebral infarctions: Plan #Generalized weakness #Confusion #Possible liver cirrhosis? #Insulin-dependent diabetes mellitus #Atrial fibrillation rate controlled #On chronic anticoagulation with Xarelto #Hypertension #GERD # BPH with chronic outlet obstruction #Prostatitis cystitis in the past ? Check vitamin B12, TSH, ammonia level, hepatitis profile ? Check PT OT ? Check GGT ? Patient does have chronically mildly elevated liver enzymes ? Will check MRI brain without contrast to rule out stroke. CT negative for new stroke however does show an old infarct. ? At this time we will continue Xarelto ? I will hold off on home Lasix and carvedilol. Hold lisinopril. Allow permissive hypertension at this time. ? Continue carvedilol 12.5 twice daily. ? May consider neurology consult going forward. ? Will check bladder scan and ensure no urinary tension. ? Check urinalysis, urine culture ? Check baseline EKG ? Will place on gentle fluid IV hydration normal saline 30 cc/h. ? Continue to monitor patient at this time. -Will place on statins ? Check lipid panel, hemoglobin A1c DVT prophylaxis: On Xarelto Full code PDMP PDMP Reviewed: Not Reviewed Attestations Medical Necessity Statement*: Observation stay for confusion, generalized weakness. May convert to inpatient going forward if indicated. Diagnoses Weakness R53.1 Confusion R41.0 Primary hypertension I10 Hypertension type: primary hypertension Atrial fibrillation with controlled ventricular rate I48.91 Anticoagulation adequate with anticoagulant therapy Z79.01 Insulin dependent type 2 diabetes mellitus E11.9; Z79.4 BPH loc w urin obs/LUTS N40.1 Stroke I63.9 Multiple cerebral infarctions I63.9
--- NOTE | 2024-05-17 15:04 | MRR_ITS ---
PROCEDURE INFORMATION: Exam: MR Head Without Contrast Exam date and time: 05/17/2024 3:59 PM Age: 79 years old Clinical indication: Weakness, facial; Additional info: R/O stroke TECHNIQUE: Imaging protocol: Magnetic resonance imaging of the head without contrast. COMPARISON: CT head wo con* [id number] 05/17/2024 12:59 PM FINDINGS: Brain: Symmetric areas of decreased signal intensity in the right and left basal ganglia on the gradient echo sequence. Findings suggest mineral deposition. Punctate focus of decreased signal intensity on the gradient echo sequence in the left hippocampus, suggesting hemosiderin deposition. No acute intracranial hemorrhage. Multiple small areas of restricted diffusion with increased signal intensity on diffusion-weighted imaging/decreased signal intensity on ADC mapping in the genu and body of the left corpus callosum. Few areas of increased signal on T2 and FLAIR also seen in the body of the left corpus callosum. No intra-axial or extra-axial masses. No midline shift. No extra-axial fluid collections. Brandt-white matter differentiation is unremarkable. Stable moderate atrophy of the brain parenchyma. Multiple areas of increased signal intensity on T2 and FLAIR in the deep white matter, consistent with moderate microangiopathic change. Stable small area of encephalomalacia consistent with an old infarct in the posterior/medial right parietal lobe. Normal flow voids are present. Seventh and eighth cranial nerve complexes are unremarkable. No evidence for Chiari 1 malformation. No evidence for mesial temporal sclerosis. Cerebral ventricles: No hydrocephalus. Bones: Mild mucoperiosteal thickening in the bilateral sphenoid, ethmoid, and left maxillary sinuses. .Multilevel degenerative changes of varying severity in the visualized spine. Paranasal sinuses: Other paranasal sinuses are clear. Mastoid air cells: Mastoid air cells are clear bilaterally. Orbital cavities: Globes and lenses, extraocular muscles, and optic nerves are intact bilaterally. No acute intraorbital abnormality. Soft tissues: No acute abnormality of the extracranial soft tissues. MR/MR head wo con* [id number] IMPRESSION: 1. Multiple small acute infarcts in the genu and body of the left corpus callosum. No mass effect. No midline shift. No hydrocephalus. 2. Stable moderate atrophy of the brain parenchyma. 3. Moderate white matter microangiopathic change. 4. Stable small area of encephalomalacia consistent with an old infarct in th the posterior/medial right parietal lobe. 5. Incidental/nonacute findings are listed in the report.
--- NOTE | 2024-05-17 15:06 | ECG_ITS ---
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: : 1945 Requested By: Kirsten Pinzon Order Number: [id number] Reading MD: QUINTON CHURCHILL Measurements Intervals [place] Rate: 68 P: 0 LA: 0 QRS: -56 QRSD: 90 T: 66 QT: 405 QTc: 431 Interpretive Statements ATRIAL FIBRILLATION LEFT AXIS DEVIATION [QRS AXIS < -30] POSSIBLE RIGHT VENTRICULAR CONDUCTION DELAY [RSR (QR) IN V1/V2] ANTERIOR MYOCARDIAL INFARCTION , PROBABLY OLD [40+ ms Q WAVE AND/OR ST/T ABNORMALITY IN V3/V4] Compared to ECG 05/17/2024 11:38:18 Left-axis deviation now present Myocardial infarct finding still present Electronically Signed On 05-17-2024 23:45:21 FURNACE REPAIRER by QUINTON CHURCHILL [id number]
--- NOTE | 2024-05-17 15:21 | PC.NURSE ---
pt report called to nurse Rojas on med surg.
[2024-05-17 16:00] LABS: Estmated Average Glucose 171; Hemoglobin A1C 7.6 % (4.0-6.0)
[2024-05-17 16:27] LABS: Chol HDL Ratio 3.15 mg/dL (1.0-5.00); Cholesterol 107 mg/dL (0-200); HDL Cholesterol 34 mg/dL (60-100); LDL Cholesterol Calculated 33 mg/dL (50-129); Triglycerides 199 mg/dL (0-150); VLDL Cholestrol Calculation 40 mg/dL (0-30)
[2024-05-17 16:39] LABS: Hepatitis A Antibody IgM Non-Reactive (Nonreactive); Hepatitis B Core AB, Total Non-Reactive (Nonreactive); Hepatitis B Surface AB < 3.5 (11.5-1000); Hepatitis B Surface Antigen Non-Reactive (Nonreactive); Hepatitis C Virus Antibody Non-Reactive (Nonreactive)
[2024-05-17 16:42] LABS: INR 1.61 (0.8-1.2)
[2024-05-17 16:42] LABS: Procalcitonin 0.24 ng/mL (0-0.5); Vitamin B12 486 pg/mL (232-1245)
[2024-05-17 16:43] LABS: Sodium 137 mmol/L (136-145)
[2024-05-17 16:46] LABS: Potassium 3.8 mmol/L (3.5-5.1)
[2024-05-17 16:46] LABS: Glucose Point of Care 135 mg/dL (70-110)
[2024-05-17 16:47] LABS: Anion Gap 20.8 (5-19); Blood Urea Nitrogen 32 mg/dL (8-23); Carbon Dioxide 23 mmol/L (22-29); Chloride 97 mmol/L (98-107); Creatinine Clr Calc Pharmacy 43.4857
[2024-05-17 16:48] LABS: Alanine Aminotransferase 30 U/L (0-41); Aspartate Amino Transferase 32 U/L (0-40); Calcium 8.7 mg/dL (8.5-10.5); Glucose 152 mg/dL (65-115); Osmolality Calculated 294 mOsm/kg (285-295); Total Bilirubin 0.5 mg/dL (0.15-1.2)
[2024-05-17 16:49] LABS: Albumin Level 3.3 g/dL (3.5-5.2); Globulin 3.9 g/dL (1.3-4.6); Total Protein 7.2 g/dL (6.6-8.7)
[2024-05-17] MEDS: sodium chloride 0.9% 1,000 ML 30 ML IV (16:49)
[2024-05-17 16:50] LABS: Alkaline Phosphatase 187 U/L (40-130); Thyroid Stimulating Hormone 3.66 uIU/mL (0.27-4.20)
[2024-05-17] MEDS: carvedilol 12.5 mg Tablet PO (17:22)
[2024-05-17 17:32] LABS: Gamma Glutamyl Transferase 198 U/L (8-61)
--- NOTE | 2024-05-17 18:36 | USCV_ITS ---
Andrés Dumnot Age: 79 Gender: M : 1945 Exam Date: 05/17/2024 21:20 Ordering Phys: Kirsten Pinzon MD Technologist: GERMAINE [place] [facility] [place] multiple strokes, hx HTN, Afib, PAD, IDDM, GERD, weakness Risk Factors: multiple strokes, hx HTN, Afib, PAD, IDDM, GERD, weakness Previous Vascular Surgery: unknown Right Brachial BP: 168 / 94 Left Brachial BP: / Right Left Velocity (cm/s) Spectral Plaque Velocity (cm/s) Spectral Plaque Syst/Diast Broadening Syst/Diast Broadening 84.10/ 10.20 Min Hetro Prox CCA 78.70 / 9.60 Min Hetro 93.20/ 11.50 Min Hetro Mid CCA 65.30 / 9.60 Min Hetro 60.80/ 5.10 Min Hetro Distal CCA 53.20 / 10.80 Mod Hetro 97.00/ 16.50 Min Ananda Prox ICA 77.80 / 17.90 Min Ananda 108.90/11.40 Mod Ananda Mid ICA 57.10 / 14.20 Mod Ananda 81.50/ 10.70 Marked Hetro Distal ICA 49.40 / 11.30 Min Hetro 44.90 Min Hetro ECA 78.50 Mod Hetro 1.80 ICA/CCA 1.50 Antegrade Vertebral Antegrade 23.50/ 5.60 cm/s 28.00/ 8.50 cm/s Tri Subclavian Tri 75.30 89.30 CONCLUSIONS Right ICA stenosis <50%. Moderate atheromatous plaque right carotid bulb/ICA. Left ICA stenosis <50%. Moderate atheromatous plaque left carotid bulb/ICA. Intimal thickening in the common carotid arteries and internal carotid arteries bilaterally. Normal antegrade Doppler flow noted in the right vertebral artery. Normal antegrade Doppler flow noted in the left vertebral artery. Devonte Baird MD (Electronically Signed) Final Date: 18 May 2024 11:23 S
--- NOTE | 2024-05-17 18:36 | USCV_ITS ---
Tim Andrés Age: 79 Gender: M : 1945 Exam Date: 05/17/2024 21:49 Ordering Phys: Kirsten Pinzon MD Technologist: GERMAINE [place] [facility] [place]: multiple strokes, hx HTN, Afib, IDDM, PAD, GERD BP: 168 / 94 HR: 82 Rhythm: Sinus Technical Quality: Adequate MEASUREMENTS (Male / Female) Normal Values 2D ECHO LV Diastolic Diameter PLAX 3.5 cm 4.2 - 5.9 / 3.9 - 5.3 cm IVS Diastolic Thickness 2.0 cm 0.6 - 1.0 / 0.6 - 0.9 cm IVS Systolic Thickness 2.6 cm LVPW Diastolic Thickness 1.5 cm 0.6 - 1.0 / 0.6 - 0.9 cm LVPW Systolic Thickness 2.1 cm LVOT Diameter 2.1 cm LV Ejection Fraction 2D Teich 59.5 % LV Ejection Fraction MOD 4C 77.2 % LV Ejection Fraction MOD 2C 36.7 % LV Ejection Fraction 2C AL 33.1 % LA Diameter 4.5 cm Aorta at Sinotubular Diameter 3.1 cm IVC Diameter 2.1 cm M-MODE LA Ao Ratio MM 1.5 AV Cusp Separation MM 2.1 cm DOPPLER AV Peak Velocity 102.0 cm/s LVOT Peak Velocity 90.0 cm/s AV Area Cont Eq vti 3.9 cm squared AV Area Cont Eq pk 3.1 cm squared MV Peak Velocity 117.0 cm/s MV Area PHT 4.3 cm squared Mitral E to A Ratio 0.0 TV Peak Velocity 252.5 cm/s TR Peak Velocity 275.0 cm/s TR Peak Gradient 30.3 mmHg TV Peak E Velocity 33.0 cm/s PV Peak Velocity 84.0 cm/s FINDINGS Left Ventricle Left ventricular is normal in size. LV systolic pressure is normal with EF of 55-60%. No regional wall motion abnormalities are seen. Basal septal hypertrophy Right Ventricle Normal in size and function Right Atrium Normal in size Left Atrium Dilated Mitral Valve Structurally normal mitral valve. Mild mitral regurgitation. Aortic Valve Structurally normal aortic valve. Mild aortic regurgitation. No significant stenosis. Tricuspid Valve Mild tricuspid regurgitation. RVSP is 35 to 40 mmHg. This is consistent with mild pulmonary hypertension Pulmonic Valve Not well visualized Pericardium Normal Aorta Normal in size IVC Not well visualized CONCLUSIONS LV systolic function is normal with EF of 55-60% Basal septal hypertrophy Left atrial dilation Mild mitral regurgitation Mild aortic regurgitation Mild tricuspid regurgitation. Mild pulmonary hypertension Duane Mccullough MD (Electronically Signed) Final Date: 18 May 2024 08:31 S
[2024-05-17] MEDS: atorvastatin 40 mg Tablet PO (20:53)
[2024-05-17] MEDS: aspirin 81 mg EC Tablet PO (20:53)
[2024-05-17 20:59] LABS: Glucose Point of Care 206 mg/dL (70-110)
[2024-05-17] MEDS: insulin lispro 100 unit/1 mL SUBCUT (21:47)
[2024-05-18 04:00] VITALS: BP 168/76; PULSE 96; RESP 18; TEMP 37; O2SAT 96
[2024-05-18 05:21] LABS: Basophils # 0.1 10^3/uL (0.0-0.1); Basophils % 0.8 %; Eosinophils % 10.6 %; Hematocrit 41.7 % (37-53); Lymphocytes # 1.8 10^3/uL (0.8-4.8); Lymphocytes % 19.7 %; Mean Corpuscular HGB Conc 33.1 g/dL (30-55); Mean Corpuscular Hemoglobin 30.5 pg (27-33); Mean Corpuscular Volume 92.3 fl (82-101); Monocytes # 1.3 10^3/uL (0.2-0.9); Monocytes % 14.1 %; Neutrophils # 5.06 10^3/uL (1.8-7.7); Neutrophils % 54.5 %; Nucleated Red Blood Cells % 0 %; Platelet Count 256 10^3/cmm (157-399); Red Blood Count 4.52 10^6/uL (3.85-5.65); Red Cell Distribution Width 14.4 % (12.1-15.1); White Blood Count 9.28 10^3/uL (3.29-11.43)
[2024-05-18 05:42] LABS: Blood Urea Nitrogen 27 mg/dL (8-23); Calcium 8.5 mg/dL (8.5-10.5); Carbon Dioxide 27 mmol/L (22-29); Chloride 101 mmol/L (98-107); Creatinine Clr Calc Pharmacy 55.0819; Glucose 83 mg/dL (65-115); Magnesium 1.9 mg/dL (1.7-2.3); Osmolality Calculated 294 mOsm/kg (285-295); Sodium 140 mmol/L (136-145)
[2024-05-18] MEDS: perflutren protein-a microsphr 0.22 mg/mL SDV 3 mL IV (05:45)
[2024-05-18 06:00] VITALS: BMI 33.0
[2024-05-18 08:00] VITALS: BP 182/92; PULSE 79; RESP 17; TEMP 36.5; O2SAT 95
[2024-05-18] MEDS: aspirin 81 mg EC Tablet PO (09:29)
[2024-05-18] MEDS: carvedilol 12.5 mg Tablet PO (09:29)
[2024-05-18] MEDS: multivitamin therapeutic Tablet 1 TAB PO (09:29)
[2024-05-18] MEDS: rivaroxaban 10 mg Tablet PO (09:30)
--- NOTE | 2024-05-18 09:36 | PC.CHAP ---
Pastoral Care Encounter/Spiritual Assessment Type of Contact [] Declined customer solutions coordinator visit [] Patient/Family/Request visit [] Outpatient visit [] Follow-up visit [] Physician referral [] Code/Alert [x] Routine visit [] Staff referral [] Actively dying [] Patient sleeping [x] Family support [] [] Out of room [] Palliative care [] [] Receiving care in room [] Pre-surgical visit [] Trauma [] Long length of stay [] ICU visit [] Other: Relational/Emotional Strength [x] Patient feels connected with others/family/visitors/staff [] Distress [] Loneliness/isolation [] Abandonment Spirituality of Patient [x] Person of Marta [] Attends Pentecostal of their Marta [x] Believes in Prayer [] Reads Bible or Oriental Orthodox materials [] There are Spiritual issues to be addressed Robotics Mechanic Interventions [x] Prayer [x] Active listening [] Non-anxious presence [x] Spiritual/emotional support [] Crisis/trauma care [] Spiritual counseling [] Bereavement support [] Provided bereavement packet [] Provided Bible/devotional materials [] Provided toy/stuffed animal, coloring book to patient or family member [] Provided Communion [] Anointing/[place] [] Salvation [x] Completed spiritual assessment [] Other: Impact on Illness or Injury [] Angry [] Fearful [] Anxious [] Often cries [] Exhaustion [] Unable to work [] Unable to attend advent [] Unable to walk/stand [] Unable to read [] Unable to drive [] Unable to eat/drink [] Unable to sleep [] Unable to be with family [] Patient intubated [] Other: Summary Time spent with patient 5 min
[2024-05-18 11:27] VITALS: BP 170/65; PULSE 84; RESP 16; TEMP 37.1; O2SAT 96
[2024-05-18 11:29] LABS: Glucose Point of Care 224 mg/dL (70-110)
[2024-05-18] MEDS: potassium chloride ER 20 mEq Tablet 40 MEQ PO (13:06)
[2024-05-18] MEDS: insulin lispro 100 unit/1 mL SUBCUT (13:06)
--- NOTE | 2024-05-18 13:07 | P.DS_ITS ---
Discharge Providers Date of Admission: 05/17/24 18:45 Date of Discharge: May 18, 2024 Attending Provider at Admission: Kirsten Pinzon MD Attending Provider at Discharge: Kirsten Pinzon MD Primary Care Provider: Humberto Griggs DO Diagnoses at Discharge Discharge Diagnosis (1) Weakness: Status: Acute (2) Confusion: Status: Resolved (3) Hypertension: Status: Acute Qualifiers: Hypertension type: primary hypertension Qualified Code(s): I10 - Essential (primary) hypertension (4) Atrial fibrillation with controlled ventricular rate: Status: Chronic (5) Anticoagulation adequate with anticoagulant therapy: Status: Acute (6) 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 Patient was admitted for confusion and weakness with symptoms starting on Thursday. CT head in the ER did show prior infarct from 2 years ago. MRI was pursued during this hospitalization which showed multiple infarcts in genu of corpus callosum. Carotid Dopplers, echo was also completed. Patient is on 10 of Xarelto at home unsure of reason of low-dose. I did go through patient's chart and there is no history of GI bleed in the past as per the patient and his records. He does have atrial fibrillation and was started on 2.5 twice daily of Eliquis in the past which was dosed for his renal function. Xarelto does not require any renal dosing as per pharmacy staff. I discussed with patient regarding his dosing of anticoagulant and he was unsure either. Discussed with neurology over the phone. We will be placing patient on Xarelto 20 mg daily going forward for stroke prevention secondary to underlying A-fib. I will leave off baby aspirin as per neurorecommendations. Neurology recommends to have patient seen up in clinic going forward. We will refer to neuro at discharge. Patient does not have any other gross deficits. Went over everything with the patient and his in a lot of detail and answered all their questions to their satisfaction. Visited with patient 2 times on day of discharge to go over everything. Patient stable at time of discharge. I will go ahead and switch his rosuvastatin to 40 mg daily. Of note patient did have cirrhotic changes on CT abdomen. Will refer to GI. Patient to follow-up with PCP after discharge. Physical Exam Narrative: General: Alert oriented x3, patient seen laying in bed appearing comfortable at this time, at bedside. HEENT: Normocephalic, atraumatic, EOMI, breathing room air. Cardio: Irregularly irregular, rate controlled, variable S1-S2 Respiratory: Clear to auscultation bilaterally no wheezes no rhonchi GI: Abdomen soft, nontender, nondistended, bowel sounds + Extremities: No focal neurological deficit. Patient walking with physical therapist in front of me on day of discharge. Discharge Data Studies Completed and Pending Completed Studies During Hospitalization Category Date Time Status CT abdomen pelvis w con* [id number] Stat Cat Scan 05/17/24 12:[address] head wo con* [id number] Stat Cat Scan 05/17/24 12:46 Completed XR chest 1V portable [id number] Stat Exams 05/17/24 11:29 Completed MR head wo con* [id number] Stat MRI 05/17/24 15:04 Completed CV carotid duplex BI* [id number] Routine Ultrasound 05/17/24 18:36 Completed CV. echo complete* [id number] Urgent Ultrasound 05/17/24 18:36 Completed Pending at discharge Category Date Time Status Urine Culture Stat Lab 05/17/24 12:00 Results Radiology Impressions Chest X-Ray 05/17/24 11:29 IMPRESSION: 1. The lungs are clear. 2. Cardiomegaly. Abdomen/Pelvis CT 05/17/24 12:46 IMPRESSION: 1. Coarse hepatic parenchymal enhancement with slight capsular nodularity suspicious for cirrhosis or parenchymal disease. 2. Prominent lymph node in the jose alberto hepatis measuring 12 mm is unchanged since 2021 likely reactive. 3. Small esophageal hiatal hernia. 4. Enlarged enhancing nodular prostate measuring 4.9 cm with bladder outlet obstruction. Recommend correlation PSA. 5. Moderate aortic and vascular calcification. 6. Moderate to severe central canal stenosis L3-L4 and L4-L5 Head CT 05/17/24 12:46 IMPRESSION: 1. No evidence of intracranial hemorrhage or mass effect. 2. 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 This is new since 2021 but has a chronic appearance. 3. Moderate small vessel changes with moderate parenchymal volume loss. 4. Vascular calcification. Head MRI 05/17/24 15:04 IMPRESSION: 1. Multiple small acute infarcts in the genu and body of the left corpus callosum. No mass effect. No midline shift. No hydrocephalus. 2. Stable moderate atrophy of the brain parenchyma. 3. Moderate white matter microangiopathic change. 4. Stable small area of encephalomalacia consistent with an old infarct in th the posterior/medial right parietal lobe. 5. Incidental/nonacute findings are listed in the report. ADDENDUM: 05/17/24 [id number] THIS REPORT CONTAINS FINDINGS THAT MAY BE CRITICAL TO PATIENT CARE. The findings were verbally communicated via telephone conference with Kirsten Swain at 5:05 PM [employer] on 05/17/2024. The findings were acknowledged and understood. Laboratory Results WBC 9.28 10^3/uL (3.29-11.43) 05/18/24 04:31 RBC 4.52 10^6/uL (3.85-5.65) 05/18/24 04:31 Hgb 13.80 g/dL (11.27-16.99) 05/18/24 04:31 Hct 41.7 % (37-53) 05/18/24 04:31 MCV 92.3 fl (82-101) 05/18/24 04:31 MCH 30.5 pg (27-33) 05/18/24 04:31 MCHC 33.1 g/dL (30-55) 05/18/24 04:31 RDW 14.4 % (12.1-15.1) 05/18/24 04:31 Plt Count 256 10^3/cmm (157-399) 05/18/24 04:31 MPV 10.0 fL (7.4-10.4) 05/18/24 04:31 Neut % (Auto) 54.5 % 05/18/24 04:31 Lymph % (Auto) 19.7 % 05/18/24 04:31 [place] % (Auto) 14.1 % 05/18/24 04:31 Eos % (Auto) 10.6 % 05/18/24 04:31 Baso % (Auto) 0.8 % 05/18/24 04:31 Neut # (Auto) 5.06 10^3/uL (1.8-7.7) 05/18/24 04:31 Lymph # (Auto) 1.8 10^3/uL (0.8-4.8) 05/18/24 04:31 [place] # (Auto) 1.3 10^3/uL (0.2-0.9) H 05/18/24 04:31 Eos # (Auto) 1.0 10^3/uL (0.0-0.8) H 05/18/24 04:31 Baso # (Auto) 0.1 10^3/uL (0.0-0.1) 05/18/24 04:31 Nucleated RBC % (auto) 0 % 05/18/24 04:31 Nucleated RBCs # 0.0 /100WBC 05/18/24 04:31 PT 20.20 SECONDS (12.1-14.9) H 05/17/24 11:58 INR 1.61 (0.8-1.2) H 05/17/24 11:58 Sodium 140 mmol/L (136-145) 05/18/24 04:31 Potassium 3.0 mmol/L (3.5-5.1) L 05/18/24 04:31 Chloride 101 mmol/L (98-107) 05/18/24 04:31 Carbon Dioxide 27 mmol/L (22-29) 05/18/24 04:31 Anion Gap 15.0 (5-19) 05/18/24 04:31 BUN 27 mg/dL (8-23) H 05/18/24 04:31 Creatinine 1.5 mg/dL (0.7-1.2) H 05/18/24 04:31 GFR Calculation Not Reportable 05/18/24 04:31 Glucose 83 mg/dL (65-115) 05/18/24 04:31 POC Glucose 224 mg/dL (70-110) H 05/18/24 11:18 Estimat Average Glucose 171 05/17/24 15:22 Hemoglobin A1c 7.6 % (4.0-6.0) H 05/17/24 15:22 Calculated Osmolality 294 mOsm/kg (285-295) 05/18/24 04:31 Calcium 8.5 mg/dL (8.5-10.5) 05/18/24 04:31 Magnesium 1.9 mg/dL (1.7-2.3) 05/18/24 04:31 Total Bilirubin 0.5 mg/dL (0.15-1.2) 05/17/24 11:58 GGT 198 U/L (8-61) H 05/17/24 15:22 AST 32 U/L (0-40) 05/17/24 11:58 ALT 30 U/L (0-41) 05/17/24 11:58 Alkaline Phosphatase 187 U/L (40-130) H 05/17/24 11:58 Ammonia 37 umol/L (16-60) 05/17/24 11:58 Total Protein 7.2 g/dL (6.6-8.7) 05/17/24 11:58 Albumin 3.3 g/dL (3.5-5.2) L 05/17/24 11:58 Globulin 3.9 g/dL (1.3-4.6) 05/17/24 11:58 Triglycerides 199 mg/dL (0-150) H 05/17/24 15:22 Cholesterol 107 mg/dL (0-200) 05/17/24 15:22 LDL Cholesterol, Calc 33 mg/dL (50-129) L 05/17/24 15:22 Total VLDL Cholesterol 40 mg/dL (0-30) H 05/17/24 15:22 HDL Cholesterol 34 mg/dL (60-100) L 05/17/24 15:22 Cholesterol/HDL Ratio 3.15 mg/dL (1.0-5.00) 05/17/24 15:22 Vitamin B12 486 pg/mL (232-1245) 05/17/24 15:22 Procalcitonin 0.24 ng/mL (0-0.5) 05/17/24 15:22 TSH 3.66 uIU/mL (0.27-4.20) 05/17/24 11:58 Urine Color Yellow (Yellow) 05/17/24 12:00 Urine Appearance Clear (CLEAR) 05/17/24 12:00 Urine pH 5.5 (5-7) 05/17/24 12:00 Ur Specific [place] 1.015 (1.005-1.030) 05/17/24 12:00 Urine Protein 2+ (Negative) A 05/17/24 12:00 Urine Glucose (UA) Negative (Normal) 05/17/24 12:00 Urine Ketones Negative (Negative) 05/17/24 12:00 Urine Blood Negative (Negative) 05/17/24 12:00 Urine Nitrate Negative (Negative) 05/17/24 12:00 Urine Bilirubin Negative (Negative) 05/17/24 12:00 Urine Urobilinogen 1.0 mg/dL (Negative) 05/17/24 12:00 Ur Leukocyte Esterase Negative (Negative) 05/17/24 12:00 Urine RBC 0-4 /hpf (0-2) H 05/17/24 12:00 Urine WBC 0-4 /hpf (0-5) H 05/17/24 12:00 Ur Squamous Epith Cells 0-4 /hpf (0-5) H 05/17/24 12:00 Amorphous Sediment Not Reportable 05/17/24 12:00 Urine Bacteria Trace /hpf (NONE) 05/17/24 12:00 Hyaline Casts 5-10 /lpf H 05/17/24 12:00 Urine Mucus 1+ /hpf 05/17/24 12:00 Hepatitis A IgM Ab Non-reactive (Nonreactive) 05/17/24 11:58 Hep Bs Antigen Non-reactive (Nonreactive) 05/17/24 11:58 Hep Bs Antibody < 3.5 (11.5-1000) L 05/17/24 11:58 Hep B Core Total Ab Non-reactive (Nonreactive) 05/17/24 11:58 Hepatitis C Antibody Non-reactive (Nonreactive) 05/17/24 11:58 Vitals Last Vital Signs Temp 98.8 F 05/18/24 11:27 Pulse 84 05/18/24 11:27 Resp 16 05/18/24 11:27 BP 170/65 05/18/24 11:27 Pulse Ox 96 05/18/24 11:27 O2 Del Method Room Air 05/18/24 11:27 Discharge Plan Discharge Patient Disposition: Home Condition: Stable Prescriptions: New rosuvastatin 40 mg tablet 40 mg PO DAILY Qty: 30 0RF Xarelto 20 mg tablet 20 mg PO DAILY Qty: 30 0RF Rx Instructions: must administer with evening meal Continued pantoprazole 40 mg tablet,delayed release (DR/EC) 40 mg PO BID albuterol sulfate [Ventolin HFA] 90 mcg/actuation HFA aerosol inhaler 2 puff inhalation Q6H PRN (Reason: shortness of breath or wheezing) Qty: 8.5 0RF triamterene-hydrochlorothiazid 75-50 mg tablet 1 tab PO DAILY furosemide [Lasix] 20 mg tablet 20 mg PO DAILY PRN (Reason: Edema) multivitamin [Multiple Vitamins] Tablet 1 tab PO DAILY carvedilol 12.5 mg tablet 12.5 mg PO BID Qty: 180 3RF Rx Instructions: must administer with a meal/food hydralazine 25 mg tablet 25 mg PO BID Qty: 180 3RF glipizide 10 mg tablet extended release 24hr 10 mg PO DAILY fluticasone propionate 50 mcg/actuation [place],Suspension 2 spray INTRANASAL DAILY PRN (Reason: Nasal Congestion) Rx Instructions: administer into each nostril lisinopril 20 mg tablet 20 mg PO DAILY potassium chloride 20 mEq tablet,ER particles/crystals 20 meq PO DAILY insulin glargine [Lantus Solostar U-100 Insulin] 100 unit/mL (3 mL) insulin pen 30 unit SUBCUT BID Discontinued Xarelto 10 mg tablet 10 mg PO DAILY Qty: 90 3RF rosuvastatin 20 mg tablet 20 mg PO DAILY Discharge Orders: Discharge Order (Routine); Ordered 05/18/24 Ordered By: Kirsten Pnizon Other Ambulatory Orders: Physical Therapy Eval and Treat Outpatient (Order) Timeframe: 3 Days Facility: [facility] - Location: Physical Therapy Ordered By: Kirsten Pinzon Referrals: [facility] [Outside] - 7-10 days (We have notified your physician's clinic of the need for a follow-up appointment to be scheduled. If you have not heard from them within the next 2 business days, please call them directly. ) [facility] Outpatient Therapy [Outside] (We have notified your OP Therapy of the need for a follow-up appointment for PT to be scheduled. If you have not heard from them within the next 2 business days, please call them directly. ) Lay Lockwood MD [Physician] - 09/15/24 1:00 pm Humberto Griggs DO [Primary Care Provider] - 05/25/24 10:00 am Discharge Diet: Cardiac Discharge Activity: As per PT/OT instructions Patient Instructions: Rosuvastatin (By mouth) (Krestor, Ezallor), Rivaroxaban (By mouth) (Xarelto, Xarelto Starter Pack), Transient Ischemic Attack (DC), Opioid Safety, Stroke Stoplight Discharge Attestations Time Spent in Discharge Care*: greater than 30 min Quality Metrics Clinical Quality Measures [ Cerebrovascular Accident { Contraindication to Antithrombotic: Drug treatment not indicated; Contraindication to Anticoagulation: Overlap treatment not indicated; Contraindication to Statin: None; Statin prescribed; Contraindication to tPA: Did not meet criteria; Rehab services assessed: Physical therapy, Occupational therapy; Reason rehab assessment not done: Rehab assessment done}. No reported AMI, CVA or VTE this stay] Coding Level of Care Code Acute Code for Chg Fwd Diagnoses Weakness R53.1 Confusion R41.0 Primary hypertension I10 Hypertension type: primary hypertension Atrial fibrillation with controlled ventricular rate I48.91 Anticoagulation adequate with anticoagulant therapy Z79.01 Insulin dependent type 2 diabetes mellitus E11.9; Z79.4 BPH loc w urin obs/LUTS N40.1 Stroke I63.9 Multiple cerebral infarctions I63.9
== END 2024-05-18 14:52 | disposition home or self-care (01) | DRG 65 ==
LOC: ER 14:18 → MEDSURG 14:56
PROVIDERS: Admitting Provider Internal Medicine; Emergency Provider Emergency Medicine; PCP Electrodiagnostic Medicine; Visit Provider Internal Medicine
DX: I63.9 Cerebral infarction, unspecified (principal); N13.8 Other obstructive and reflux uropathy; I10 Essential (primary) hypertension; I48.91 Unspecified atrial fibrillation; Z79.01 Long term (current) use of anticoagulants; E11.51 Type 2 diabetes mellitus with diabetic peripheral angiopathy without gangrene; E11.42 Type 2 diabetes mellitus with diabetic polyneuropathy; Z79.4 Long term (current) use of insulin; N40.1 Benign prostatic hyperplasia with lower urinary tract symptoms; K21.9 Gastro-esophageal reflux disease without esophagitis; K74.60 Unspecified cirrhosis of liver
CPT/HCPCS: 36415; 36416; 70450; 70551; 71045; 74177; 80048; 80053; 80061; 81001; 82140; 82607; 82962; 82977; 83036; 83735; 84145; 84443; 85025; 85610; 86705; 86706; 86709; 86803; 87086; 87340; 93005; 93306; 93880; 96372; 97110; 97161; 97165; 99285; G0378; J1815; J7030

== ENCOUNTER 2024-05-30 10:20 | Outpatient (RCR) | payer MEDICARE, OTHER, SELFPAY | END 2024-06-20 23:59 | disposition home or self-care (01) | LOC: SPT 10:20 | PROVIDERS: Visit Provider Internal Medicine | DX: I63.9 Cerebral infarction, unspecified (principal); R53.1 Weakness | CPT/HCPCS: 97110; 97161 ==

== ENCOUNTER 2024-06-10 11:42 | Observation (INO) | payer MEDICARE, OTHER, SELFPAY ==
[2024-06-10] VITALS (7 sets, daily range): BP systolic 107–160; BP diastolic 58–83; PULSE 63–82; RESP 15–18; TEMP 36.4–36.7; O2SAT 95–98; BMI 32.1
--- NOTE | 2024-06-10 11:45 | ECG_ITS ---
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 Measurements Intervals Art Rate: 83 P: 0 TN: 0 QRS: -60 QRSD: 98 T: 64 QT: 415 QTc: 488 Interpretive Statements ATRIAL FIBRILLATION PATTERN CONSISTENT WITH PULMONARY DISEASE LEFT ANTERIOR FASCICULAR BLOCK [QRS AXIS <= -45, QR IN I, RS IN II] SEPTAL MYOCARDIAL INFARCTION , PROBABLY OLD [40+ ms Q WAVE IN V1/V2] Compared to ECG 05/17/2024 15:11:19 Left anterior fascicular block now present Left-axis deviation no longer present Myocardial infarct finding still present Electronically Signed On 06-11-2024 07:41:19 CDT by Duane Mccullough M.D. [email or web address]
--- NOTE | 2024-06-10 11:45 | CT_ITS ---
WS: [id number] CT scan of the head, 06/10/2024 Clinical Data: Symptoms of acute stroke Comparison: CT head, 05/17/2024 DLP: 1191.[address] scans at [facility] use at least one of these dose optimization techniques: automated exposure control; mA and/or kV adjustment per patient size (includes targeted exams where dose is matched to clinical indication); or iterative reconstruction. Findings: The ventricular system is modestly dilated without shift. No recent infarct or hemorrhage is seen. The old right parietal vertex infarct and lacunar infarcts again are seen. There are no abnormal intracerebral masses. The cerebellum shows small lacunar infarcts, but the brainstem is not remarkable. Bony windows of the skull and skull base show no fractures or erosions. The mastoid air cells, internal auditory canals, sella turcica and intraorbital contents are unremarkable. There is minimal mucosal thickening of the left maxillary sinus CT/CT head thrombolytic [id number] Impression: 1. Negative for acute infarct or hemorrhage. 2. Chronic changes of the cerebrum and cerebellum.
--- NOTE | 2024-06-10 11:47 | W.ED.NEUROSD ---
HPI - Neuro Symptoms/Deficit General: Chief Complaint: Neuro Symptoms/Deficit Stated Complaint: stroke like symptom Time Seen by Provider: 06/10/24 11:45 History of Present Illness: 79-year-old male presents emergency room with left-sided weakness last known well approximately 1050 to 11 AM just prior to arrival. On arrival patient initially is left-sided weakness and facial droop is having a little bit of dysarthria as well as a history of strokes and hypertension Associated symptoms: Deny chest pain Related Data Home Medications ?Medication ?Instructions ?Recorded ?Confirmed pantoprazole 40 mg tablet,delayed 40 mg PO BID 11/19/20 06/10/24 release fluticasone propionate 50 2 spray intranasal DAILY PRN Nasal 09/18/21 06/10/24 mcg/actuation nasal Congestion spray,suspension glipizide 10 mg tablet, extended 10 mg PO DAILY 09/18/21 06/10/24 release 24 hr triamterene 75 1 tab PO DAILY 12/18/21 06/10/24 mg-hydrochlorothiazide 50 mg tablet furosemide 20 mg tablet (Lasix) 20 mg PO DAILY PRN Edema 11/16/23 06/10/24 multivitamin (Multiple Vitamins 1 tab PO DAILY 03/28/24 06/10/24 tablet) insulin glargine 100 unit/mL (3 30 unit SUBCUT BID 05/17/24 06/10/24 mL) subcutaneous pen (Lantus Solostar U-100 Insulin) lisinopril 20 mg tablet 20 mg PO DAILY 05/17/24 06/10/24 potassium chloride 10 mEq 10 meq PO BID 06/10/24 06/10/24 tablet,extended release Previous Rx's ?Medication ?Instructions ?Recorded carvedilol 12.5 mg tablet 12.5 mg PO BID #180 tabs 03/28/24 hydralazine 25 mg tablet 25 mg PO BID #180 tabs 03/28/24 rivaroxaban 20 mg tablet (Xarelto) 20 mg PO DAILY #30 tabs 05/18/24 rosuvastatin 40 mg tablet 40 mg PO DAILY #30 tabs 05/18/24 Allergies Allergy/AdvReac Type Severity Reaction Status Date / Time lovastatin Allergy RASH Verified 05/17/24 11:31 Review of Systems Const: Denies: fever(s) or chills Card: Denies: chest pain Resp: Denies: dyspnea GI: Denies: abdominal pain : Denies: dysuria, urinary frequency or urinary urgency Musc: Denies: neck pain or back pain Skin/Breast: Denies: rash PFSH ED PFSH: Medical History Hypertension Anticoagulation adequate with anticoagulant therapy Atrial fibrillation with controlled ventricular rate BPH (benign prostatic hyperplasia) Mass of right kidney Diabetes mellitus Acute cholecystitis Callus of foot Chronic ulcer of great toe of right foot, limited to breakdown of skin Hammertoe Peripheral arterial disease Diabetic peripheral neuropathy associated with type 2 diabetes mellitus Diabetes mellitus GERD (gastroesophageal reflux disease) Venous insufficiency Prostatitis, acute Acute cystitis with hematuria Surgical History Hx of cholecystectomy Status post right inguinal hernia repair Status post colonoscopy (12/13/20) descending colon polyp H/O esophagogastroduodenoscopy (12/13/20) normal Hx of tonsillectomy Family History Mother , AT AGE 73 Cancer COLON Father , AT AGE 50 Diabetes Social History Smoking and tobacco/nicotine status: former use of tobacco/nicotine Alcohol intake: current Alcohol intake frequency: holidays/special occasions only Marital status: Current occupational status: retired NIH stroke score NIHSS: Level Of Consciousness - 1a: 1 Level Of Consciousness Questions - 1b: Both Correct Level Of Consciousness Commands - 1c: Both Correct Best Gaze - 2: Normal Visual Grant - 3: No Visual Loss Facial Palsy - 4: Minor Paralysis Motor Arm Right - 5: Drift Motor Arm Left - 5: No Drift Motor Leg Right - 6: No Drift Motor Leg Left - 6: Drift Limb Ataxia - 7: Present In One Limb Sensory - 8: Normal Best Language - 9: No Aphasia Dysarthia - 10: Mild/Moderate Dysarthia Extinction And Inattention - 11: 0 Score: Total Score: 6 Physical Exam Const: COMMON NORMALS: no acute distress GENERAL APPEARANCE: cooperative and comfortable ORIENTATION/CONSCIOUSNESS: Yes awake, Yes oriented to person, Yes oriented to place and Yes oriented to time HENMT: COMMON NORMALS: normocephalic, atraumatic and hearing grossly normal bilaterally HEAD & SCALP: normocephalic and atraumatic Resp: COMMON NORMALS: normal respiratory effort, No retractions, No use of accessory muscles and clear to auscultation bilaterally AUSCULTATION: clear to auscultation bilaterally Cardio: COMMON NORMALS: regular rate, regular rhythm and No murmurs present (Cardio) RATE: regular rate RHYTHM: regular rhythm GI: COMMON NORMALS: Soft to palpation and No hepatosplenomegaly present AUSCULTATION: Yes normoactive bowel sounds PALPATION: Yes Soft to palpation, No Tenderness to palpation present (GI), No Guarding due to palpation present (GI) and Yes No hepatosplenomegaly present Extremity: COMMON NORMALS: normal to inspection, capillary refill normal, no clubbing, cyanosis or edema, no calf tenderness and no pedal edema Neuro: SENSORIUM/ORIENTATION: Yes oriented to person, Yes oriented to place and Yes oriented to time Skin: COMMON NORMALS: no rashes or lesions noted GENERAL SKIN EXAM: no rashes or lesions noted Course Vital Signs: Vital signs: Vital Signs Pulse Rate 80 06/10/24 15:07 Blood Pressure 121/58 06/10/24 15:07 Pulse Oximetry 97 06/10/24 15:07 Oxygen Delivery Me thod Room Air 06/10/24 15:07 MDM - Neuro Symptoms/Deficit Medical Decision Making Initial NIH score of [address] however is not a candidate for thrombolytics due to being on Xarelto. CTA was negative at the time we completed everything all of his symptoms had resolved. Will admit the patient. He does have significant stenosis in the right coronary. Discussed Dr. Lockwood she recommended observation. Referral for carotid stenosis Medical Records I reviewed the patient's medical records. Lab Data I reviewed the patient's lab results. 06/10/24 12:14 06/10/24 12:[address] 06/10/24 11:45 Impression: 1. Negative for acute infarct or hemorrhage. 2. Chronic changes of the cerebrum and cerebellum. Head/Neck CTA 06/10/24 11:55 IMPRESSION: CTA head demonstrates no intracranial large vessel occlusion or flow-limiting stenosis. IMPRESSION: 1. CTA neck shows severe stenosis proximal RIGHT ICA estimated at 80-90%. 2. Atherosclerosis involving other carotid and vertebral arteries in the neck without hemodynamically significant stenoses. REFERENCES: NASCET CRITERIA. The degree of stenosis in the cervical segment of the internal carotid artery is based on NASCET criteria. Normal is no stenosis. Mild is less than 50% stenosis. Moderate is 50-69% stenosis. Severe is 70% to 99% stenosis. Total occlusion is no detectable patent lumen. Laboratory Results WBC 9.85 10^3/uL (3.29-11.43) 06/10/24 12:14 RBC 4.56 10^6/uL (3.85-5.65) 06/10/24 12:14 Hgb 13.70 g/dL (11.27-16.99) 06/10/24 12:14 Hct 41.7 % (37-53) 06/10/24 12:14 MCV 91.4 fl (82-101) 06/10/24 12:14 MCH 30.0 pg (27-33) 06/10/24 12:14 MCHC 32.9 g/dL (30-55) 06/10/24 12:14 RDW 14.2 % (12.1-15.1) 06/10/24 12:14 Plt Count 279 10^3/cmm (157-399) 06/10/24 12:14 MPV 9.8 fL (7.4-10.4) 06/10/24 12:14 Neut % (Auto) 60.8 % 06/10/24 12:14 Lymph % (Auto) 15.4 % 06/10/24 12:14 Rabun % (Auto) 11.4 % 06/10/24 12:14 Eos % (Auto) 11.5 % 06/10/24 12:14 Baso % (Auto) 0.6 % 06/10/24 12:14 Neut # (Auto) 5.99 10^3/uL (1.8-7.7) 06/10/24 12:14 Lymph # (Auto) 1.5 10^3/uL (0.8-4.8) 06/10/24 12:14 Rabun # (Auto) 1.1 10^3/uL (0.2-0.9) H 06/10/24 12:14 Eos # (Auto) 1.1 10^3/uL (0.0-0.8) H 06/10/24 12:14 Baso # (Auto) 0.1 10^3/uL (0.0-0.1) 06/10/24 12:14 Nucleated RBC % (auto) 0 % 06/10/24 12:14 Nucleated RBCs # 0.0 /100WBC 06/10/24 12:14 PT 33.20 SECONDS (12.1-14.9) H 06/10/24 12:14 INR 3.05 (0.8-1.2) H 06/10/24 12:14 APTT 46.1 SECONDS (23.9-36.7) H 06/10/24 12:14 Sodium 133 mmol/L (136-145) L 06/10/24 12:14 Potassium 3.0 mmol/L (3.5-5.1) L 06/10/24 12:14 Chloride 96 mmol/L (98-107) L 06/10/24 12:14 Carbon Dioxide 26 mmol/L (22-29) 06/10/24 12:14 Anion Gap 14.0 (5-19) 06/10/24 12:14 BUN 28 mg/dL (8-23) H 06/10/24 12:14 Creatinine 2.0 mg/dL (0.7-1.2) H 06/10/24 12:14 GFR Calculation Not Reportable 06/10/24 12:14 Glucose 190 mg/dL (65-115) H 06/10/24 12:14 POC Glucose 182 mg/dL (70-110) H 06/10/24 11:46 Calculated Osmolality 287 mOsm/kg (285-295) 06/10/24 12:14 Calcium 8.5 mg/dL (8.5-10.5) 06/10/24 12:14 Total Bilirubin 0.4 mg/dL (0.15-1.2) 06/10/24 12:14 AST 21 U/L (0-40) 06/10/24 12:14 ALT 21 U/L (0-41) 06/10/24 12:14 Alkaline Phosphatase 175 U/L (40-130) H 06/10/24 12:14 Total Protein 6.5 g/dL (6.6-8.7) L 06/10/24 12:14 Albumin 3.0 g/dL (3.5-5.2) L 06/10/24 12:14 Globulin 3.5 g/dL (1.3-4.6) 06/10/24 12:14 Urine Color Yellow (Yellow) 06/10/24 15:14 Urine Appearance Clear (CLEAR) 06/10/24 15:14 Urine pH 6.5 (5-7) 06/10/24 15:14 Ur Specific [place] 1.020 (1.005-1.030) 06/10/24 15:14 Urine Protein Trace (Negative) A 06/10/24 15:14 Urine Glucose (UA) Negative (Normal) 06/10/24 15:14 Urine Ketones Negative (Negative) 06/10/24 15:14 Urine Blood Negative (Negative) 06/10/24 15:14 Urine Nitrate Negative (Negative) 06/10/24 15:14 Urine Bilirubin Negative (Negative) 06/10/24 15:14 Urine Urobilinogen 0.2 mg/dL (Negative) 06/10/24 15:14 Ur Leukocyte Esterase Negative (Negative) 06/10/24 15:14 Urine RBC 0-2 /hpf (0-2) 06/10/24 15:14 Urine WBC 0-5 /hpf (0-5) 06/10/24 15:14 Ur Squamous Epith Cells 0-5 /hpf (0-5) 06/10/24 15:14 Amorphous Sediment Not Reportable 06/10/24 15:14 Urine Bacteria None seen /hpf (NONE) 06/10/24 15:14 Hyaline Casts 2.46 /lpf 06/10/24 15:14 Urine Opiates Screen Negative ng/mL (Negative) 06/10/24 15:14 Ur Barbiturates Screen Negative ng/mL (Negative) 06/10/24 15:14 Ur Phencyclidine Scrn Negative ng/mL (Negative) 06/10/24 15:14 Ur Amphetamines Screen Negative ng/mL (Negative) 06/10/24 15:14 U Benzodiazepines Scrn Negative ng/mL (Negative) 06/10/24 15:14 Urine Cocaine Screen Negative ng/mL (Negative) 06/10/24 15:14 U Marijuana (THC) Screen Negative ng/mL (Negative) 06/10/24 15:14 All radiology interpretation(s) finalized by discharge Discharge Plan Discharge Patient Disposition: Admitted As Inpatient Admit Provider: Marie Barney Clinical Impression: TIA (transient ischemic attack), Carotid stenosis, right Condition: Stable Coding Level of Care Code ED [employer] for Lois Greco
[2024-06-10 11:50] LABS: Glucose Point of Care 182 mg/dL (70-110)
--- NOTE | 2024-06-10 11:55 | CTR_ITS ---
PROCEDURE INFORMATION: Exam: CTA Head With Contrast, Arteriography Exam date and time: 06/10/2024 11:57 AM Age: 79 years old Clinical indication: Weakness; Additional info: Symptoms of acute stroke TECHNIQUE: Imaging protocol: Computed tomographic angiography of the head with contrast. Exam focused on the arteries. 3D rendering (Not supervised by radiologist): MIP and/or 3D reconstructed images were created by the technologist. Radiation optimization: All CT scans at this facility use at least one of these dose optimization techniques: automated exposure control; mA and/or kV adjustment per patient size (includes targeted exams where dose is matched to clinical indication); or iterative reconstruction. Contrast material: OMNI 350; Contrast volume: 100 ml; Contrast route: INTRAVENOUS (IV); COMPARISON: CT head thrombolytic [id number] 06/10/2024 11:46 AM RADIATION DOSE METRICS: Total DLP (mGy-cm): 572.35 FINDINGS: Internal carotid: Intracranial segments of bilateral internal carotid arteries are patent without flow limiting stenosis. Anterior cerebral: Right A1 segment apparently is developmentally absent. Left A1 segment is widely patent and dominant and provides flow to both A2 segments which are unremarkable. Middle cerebral: Bilateral proximal middle cerebral arteries are patent without flow-limiting stenosis or occlusion. There is grossly symmetric appearance of branch vessels within the sylvian fissures. Posterior cerebral: Bilateral proximal posterior cerebral arteries are patent without flow-limiting stenosis or occlusion. . Vertebrobasilar: Basilar artery is patent without flow-limiting stenosis. Intracranial segments of both vertebral arteries are patent without flow-limiting stenosis. Venous sinuses: Major dural venous sinuses are patent without evidence of thrombus. PROCEDURE INFORMATION: Exam: CTA Neck With Contrast Exam date and time: 06/10/2024 11:57 AM Age: 79 years old Clinical indication: Weakness; Additional info: Symptoms of acute stroke TECHNIQUE: Imaging protocol: Computed tomographic angiography of the neck with contrast. Exam focused on the cervical segments of the vasculature. 3D rendering (Not supervised by radiologist): MIP and/or 3D reconstructed images were created by the technologist. Radiation optimization: All CT scans at this facility use at least one of these dose optimization techniques: automated exposure control; mA and/or kV adjustment per patient size (includes targeted exams where dose is matched to clinical indication); or iterative reconstruction. Contrast material: OMNI 350; Contrast volume: 100 ml; Contrast route: INTRAVENOUS (IV); COMPARISON: CT head thrombolytic [id number] 06/10/2024 11:46 AM RADIATION DOSE METRICS: Total DLP (mGy-cm): 572.35 FINDINGS: Aortic arch: No significant stenosis of the great vessels at their origins from the aortic arch. Right carotid: Mild atherosclerosis of right CCA with less than 30% stenosis. There is prominent calcified and soft plaque involving proximal right ICA, associated with 80-90% stenosis. Left carotid: Minimal atherosclerosis of left CCA with less than 20% stenosis. Calcified plaque involving proximal left ICA is associated with 30-40% stenosis. Left vertebral: Dominant left vertebral artery shows atherosclerotic plaque near its origin with mild stenosis of 40%. Right vertebral: Mild plaque at origin of the non dominant right vertebral artery without significant stenosis. Soft tissues: No acute abnormality of the neck soft tissues is seen. Bones: Chronic multilevel cervical degenerative disc disease is present. CT/CT angio headneck* [id number] IMPRESSION: CTA head demonstrates no intracranial large vessel occlusion or flow-limiting stenosis. IMPRESSION: 1. CTA neck shows severe stenosis proximal RIGHT ICA estimated at 80-90%. 2. Atherosclerosis involving other carotid and vertebral arteries in the neck without hemodynamically significant stenoses. REFERENCES: NASCET CRITERIA. The degree of stenosis in the cervical segment of the internal carotid artery is based on NASCET criteria. Normal is no stenosis. Mild is less than 50% stenosis. Moderate is 50-69% stenosis. Severe is 70% to 99% stenosis. Total occlusion is no detectable patent lumen.
[2024-06-10] MEDS: iohexol 350 mg/mL 500 mL Btl (per mL) IV (12:01)
[2024-06-10 12:25] LABS: Basophils # 0.1 10^3/uL (0.0-0.1); Basophils % 0.6 %; Eosinophils # 1.1 10^3/uL (0.0-0.8); Eosinophils % 11.5 %; Hematocrit 41.7 % (37-53); Lymphocytes # 1.5 10^3/uL (0.8-4.8); Lymphocytes % 15.4 %; Mean Corpuscular HGB Conc 32.9 g/dL (30-55); Mean Corpuscular Volume 91.4 fl (82-101); Mean Platelet Volume 9.8 fL (7.4-10.4); Monocytes # 1.1 10^3/uL (0.2-0.9); Monocytes % 11.4 %; Neutrophils # 5.99 10^3/uL (1.8-7.7); Neutrophils % 60.8 %; Nucleated Red Blood Cells % 0 %; Platelet Count 279 10^3/cmm (157-399); Red Blood Count 4.56 10^6/uL (3.85-5.65); Red Cell Distribution Width 14.2 % (12.1-15.1); White Blood Count 9.85 10^3/uL (3.29-11.43)
[2024-06-10 12:34] LABS: INR 3.05 (0.8-1.2)
[2024-06-10 12:35] LABS: Partial Thromboplastin Time 46.1 SECONDS (23.9-36.7)
[2024-06-10 12:38] LABS: Alanine Aminotransferase 21 U/L (0-41); Alkaline Phosphatase 175 U/L (40-130); Aspartate Amino Transferase 21 U/L (0-40); Blood Urea Nitrogen 28 mg/dL (8-23); Calcium 8.5 mg/dL (8.5-10.5); Carbon Dioxide 26 mmol/L (22-29); Chloride 96 mmol/L (98-107); Creatinine Clr Calc Pharmacy 40.7647; Globulin 3.5 g/dL (1.3-4.6); Glucose 190 mg/dL (65-115); Osmolality Calculated 287 mOsm/kg (285-295); Sodium 133 mmol/L (136-145); Total Bilirubin 0.4 mg/dL (0.15-1.2); Total Protein 6.5 g/dL (6.6-8.7)
[2024-06-10 15:27] LABS: Bilirubin Urine Negative (Negative); Blood Urine Negative (Negative); Glucose Urine UA Negative (Normal); Ketones Urine Negative (Negative); Leukocyte Esterase Urine Negative (Negative); Nitrate Urine Negative (Negative); Protein Urine Trace (Negative); Urine Appearance Clear (CLEAR); Urine Color Yellow (Yellow); Urobilinogen Urine 0.2 mg/dL (Negative); pH Urine 6.5 (5-7)
[2024-06-10 15:32] LABS: Add Urine Microscopic? YES; Bacteria Urine None Seen /hpf; Hyaline Casts Urine 2.46 /lpf; RBC Urine 0-2 /hpf (0-2); Squamous Epithelial Cell Urine 0-5 /hpf (0-5); WBC Urine 0-5 /hpf (0-5)
[2024-06-10 15:34] LABS: Amphetamines Screen Urine Negative (Negative); Barbiturates Screen Urine Negative (Negative); Benzodiazepines Screen Urine Negative (Negative); Cocaine Screen Urine Negative (Negative); Opiate Screen Urine Negative (Negative); PCP Screen Urine Negative (Negative); THC Screen Urine Negative (Negative)
--- NOTE | 2024-06-10 16:01 | PC.NURSE ---
This nurse took report from MARCIO Andrews at 1600.
[2024-06-10 16:41] LABS: Glucose Point of Care 245 mg/dL (70-110)
--- NOTE | 2024-06-10 16:41 | PC.NURSE ---
This nurse performed a bedside swallow study at 1630. Pt had no difficulty swallowing.
--- NOTE | 2024-06-10 16:51 | P.PNCC_ITS ---
Stroke Alert Activation ED Arrival Date: 06/10/24 ED Arrival Time: 11:45 ED Physican at Bedside: 11:45 Last Known Normal/at Baseline: < 1 hour ago Other Last Known Well Infomation: I was called stat for stroke alert and came directly to the emergency department as soon as stroke alert was called. The patient was in the CAT scan and I stated to watch his CT images. I learned that he was on Xarelto and recently refilled his prescription. He was not a candidate for thrombolytic therapy. The patient presented with significant left-sided weakness and dysarthria so I suggested that Dr. Barillas check to see if anyone would consider taking him for severe stenosis of the right internal carotid artery. He did not have a large vessel occlusion. Subsequently his neurologic symptoms resolved and he was admitted to be stabilized, keep his blood pressure under control and look toward vascular surgery for symptomatic right carotid stenosis within 2 weeks. Stroke Alert Activation Time: 11:44 Stroke MD @ Bedside Time: 11:45 NIH Stroke Scale Score: NIH Stroke Scale Score: 6 (By Dr. Barillas) Stroke Alert Data/Treatment Time to CT of Head: 11:45 CT Results Time: 12:07 CT Impression: Chronic white matter changes throughout. No acute changes. Stroke Risk Factors: atrial fibrillation, coronary artery disease, hypertension, obesity, diabetes mellitus and sleep apnea tPA Contraindication: tPA Contraindication: Treatment not indcated and Medical contraindication tPA Admin Prior to Arrival: No Other Patient & Family Education: Stroke alert was called because he was experiencing unilateral weakness. He could not be treated with thrombolytic because he is on rivaroxaban for chronic atrial fibrillation. He was just admitted to this hospital 05/18/2024 for generalized weakness and while an inpatient at this hospital he was treated with an MRI of the brain and carotid Doppler ultrasound. His MRI showed multiple small acute infarcts in the left corpus callosum, generalized atrophy, generalized white matter changes and an old stroke in the right parietal lobe. Carotid Doppler showed less than 50% stenosis in the carotid arteries. Now on current CTA his right carotid stenosis has increased to 80 to 90% and he presents with left-sided weakness, so carotid endarterectomy or stent is indicated within 2 weeks. The patient is a poor surgical candidate because of his morbid obesity, severe hypertension, diabetes mellitus and possibly somewhat compromised memory. I had a chance to fully examine the patient and take a history this evening. He does not remember being weak. His best friend was with him at [employer] after a big breakfast when he got up to go to the bathroom and when he came back he could not walk and he had wet himself. It took 3 or 4 people to get into the car and bring him to the emergency department. Neither of them remember whether he was weak on [address] Barillas examined him immediately and he was definitely weak on the left. He has developed significant carotid stenosis on the right with soft plaque. His neurologic exam reveals normal memory. He feels very anxious and worried. His speech is clear and fluent. No sign of dementia. Visual henriquez are full. Facial movements are symmetric. Tongue and palate midline. No dysarthria. Motor exam reveals no drift. Fine movements in the hands are rapid and symmetric. Strength is full throughout. He was able to march in place at the bed side. He could stand with his feet together. Sensory exam reveals distal sensory loss consistent with diabetic neuropathy. Other Information: CTA 06/10/2024 Aortic arch: No significant stenosis of the great vessels at their origins from the aortic arch. Right carotid: Mild atherosclerosis of right CCA with less than 30% stenosis. There is prominent calcified and soft plaque involving proximal right ICA, associated with 80-90% stenosis. Left carotid: Minimal atherosclerosis of left CCA with less than 20% stenosis. Calcified plaque involving proximal left ICA is associated with 30-40% stenosis. Left vertebral: Dominant left vertebral artery shows atherosclerotic plaque near its origin with mild stenosis of 40%. Right vertebral: Mild plaque at origin of the non dominant right vertebral artery without significant stenosis. Soft tissues: No acute abnormality of the neck soft tissues is seen. Bones: Chronic multilevel cervical degenerative disc disease is present. CT/CT angio headneck* [id number] IMPRESSION: CTA head demonstrates no intracranial large vessel occlusion or flow-limiting stenosis. IMPRESSION: 1. CTA neck shows severe stenosis prox imal RIGHT ICA estimated at 80-90%. 2. Atherosclerosis involving other car otid and vertebral arteries in the neck without hemodynamically significant stenoses. Dictated By: Amari Knutson MD Critical Care Time Critical Care Time: 30 - 74 mins A&P Assessment and plan (1) Acute right arterial ischemic stroke, middle cerebral artery (MCA): 79-year-old man with chronic atrial fibrillation presented with left-sided weakness that cleared rapidly. He was not a candidate for thrombolytic because he is on Xarelto and compliant. He has developed severe right carotid stenosis subsequent to Doppler ultrasound performed only a month ago. His MRI performed as an inpatient 05/17/2024 for complaint of diffuse weakness shows a shower of emboli in the distribution of the left anterior cerebral artery. He was compliant on his blood thinner at the time that he presented with vague weakness and left anterior cerebral artery stroke which presumably was from cardiac source Consider right carotid endarterectomy versus stent. He will need bridging therapy with Lovenox and will have to come off of Xarelto once we find a surgeon who is willing to take him or possibly a proceduralist for stent. I will discuss with Dr. Barney I took time to answer the patient's questions and I went over the stroke book including his risk profile. He has every risk including undiagnosed sleep apnea, morbid obesity, diabetes [id number] and severe hypertension as well as atrial fibrillation and sedentary lifestyle. (2) Anticoagulation adequate with anticoagulant therapy: (3) Atrial fibrillation with controlled ventricular rate: (4) Peripheral arterial disease: (5) Carotid stenosis, right: (6) Insulin dependent type 2 diabetes mellitus: (7) Sleep apnea: PDMP PDMP Reviewed: Not Reviewed Coding Level of Care Code Acute Code for [facility] Diagnoses Acute right arterial ischemic stroke, middle cerebral artery (MCA) I63.511 Anticoagulation adequate with anticoagulant therapy Z79.01 Atrial fibrillation with controlled ventricular rate I48.91 Peripheral arterial disease I73.9 Carotid stenosis, right I65.21 Insulin dependent type 2 diabetes mellitus E11.9; Z79.4 Sleep apnea G47.30
[2024-06-10] MEDS: sodium chloride 0.9% 1,000 ML 100 ML IV (17:23)
--- NOTE | 2024-06-10 18:04 | PM.HP ---
Providers/Chief Complaint Admitting Physician: Marie Barney MD Chief Complaint: stroke like symptom History of Present Illness Andrés Dumont is a 79 year old male With a past medical history of hypertension, diabetes mellitus, A-fib chronically on Xarelto who was brought to the emergency room with significant left-sided weakness and dysarthria. Stroke code was called. He was evaluated by neurology. Patient was not a candidate for TNKase as he is on chronic anticoagulation. CT of the head was negative for any acute infarct or hemorrhage. CTA of the head and neck showed severe stenosis of the proximal right ICA estimated at 80 to 90%. Of note patient had recently been in the hospital on May 18 2024 when he had presented with generalized weakness confusion. 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 Carotid Doppler performed on that stay had showed 50% stenosis in the carotid arteries bilaterally, however on the CTA it is currently estimated at 80 to 90%. Started to improve by the time he returned from CAT scan. Review of Systems General: Reports: 10 or more systems reviewed and unremarkable except in HPI and below Const: Denies: fever(s), chills or body aches Eyes: Denies: change in vision, blurry vision or photophobia ENMT: Reports: hoarseness; Denies: throat pain, enlarged tonsils, odynophagia or nasal congestion Card: Denies: chest pain, palpitations, irregular heart rhythm, edema, swelling of feet/ankles, lightheadedness, pre-syncope, dyspnea on exertion or orthopnea Resp: Denies: dyspnea, productive cough, non-productive cough, wheezing, stridor, pain on inspiration, change in phlegm color, hemoptysis or chest congestion GI: Denies: abdominal pain, nausea, vomiting, hematemesis, coffee ground emesis, dysphagia, heartburn, diarrhea, constipation, GI cramping, change in stool character, hematochezia or melena : Denies: flank pain, dysuria, urinary frequency, urinary urgency, urinary hesitancy or hematuria Musc: Denies: neck pain, back pain, extremity pain, joint swelling, joint warmth or deformity Neuro: Denies: headache(s), numbness in extremities, weakness in extremities, sensory changes, difficulty walking, frequent falls, dizziness, vertigo, behavioral changes, Slurred speech present or seizure-like activity Psych: Denies: anxiety, depression, suicidal ideation or homicidal ideation Endo: Denies: polyuria, polydipsia, tired all the time, cold intolerance or hot flashes Oc/Lymph: Denies: easy bruising or easy bleeding Medications/Allergies Home Medications ?Medication ?Instructions ?Recorded ?Confirmed ?Last Taken ?Type pantoprazole 40 mg tablet,delayed 40 mg PO BID 11/19/20 06/10/24 06/09/24 History release fluticasone propionate 50 2 spray intranasal DAILY PRN Nasal 09/18/21 06/10/24 06/09/24 History mcg/actuation nasal Congestion spray,suspension glipizide 10 mg tablet, extended 10 mg PO DAILY 09/18/21 06/10/24 06/10/24 History release 24 hr triamterene 75 1 tab PO DAILY 12/18/21 06/10/24 06/09/24 History mg-hydrochlorothiazide 50 mg tablet furosemide 20 mg tablet (Lasix) 20 mg PO DAILY PRN Edema 11/16/23 06/10/24 06/10/24 History carvedilol 12.5 mg tablet 12.5 mg PO BID #180 tabs 03/28/24 06/10/24 06/10/24 Rx hydralazine 25 mg tablet 25 mg PO BID #180 tabs 03/28/24 06/10/24 05/17/24 Rx multivitamin (Multiple Vitamins 1 tab PO DAILY 03/28/24 06/10/24 06/09/24 History tablet) insulin glargine 100 unit/mL (3 30 unit SUBCUT BID 05/17/24 06/10/24 06/09/24 History mL) subcutaneous pen (Lantus Solostar U-100 Insulin) lisinopril 20 mg tablet 20 mg PO DAILY 05/17/24 06/10/24 06/10/24 History rivaroxaban 20 mg tablet (Xarelto) 20 mg PO DAILY #30 tabs 05/18/24 06/10/24 06/09/24 17:00 Rx rosuvastatin 40 mg tablet 40 mg PO DAILY #30 tabs 05/18/24 06/10/24 06/10/24 Rx potassium chloride 10 mEq 10 meq PO BID 06/10/24 06/10/24 06/10/24 History tablet,extended release Allergies Allergy/AdvReac Type Severity Reaction Status Date / Time lovastatin Allergy RASH Verified 05/17/24 11:31 PFSH Acute PFSH: Medical History Hypertension Anticoagulation adequate with anticoagulant therapy Atrial fibrillation with controlled ventricular rate BPH (benign prostatic hyperplasia) Mass of right kidney Diabetes mellitus Acute cholecystitis Callus of foot Chronic ulcer of great toe of right foot, limited to breakdown of skin [place] Peripheral arterial disease Diabetic peripheral neuropathy associated with type 2 diabetes mellitus Diabetes mellitus GERD (gastroesophageal reflux disease) Venous insufficiency Prostatitis, acute Acute cystitis with hematuria Surgical History Hx of cholecystectomy Status post right inguinal hernia repair Status post colonoscopy (12/13/20) descending colon polyp H/O esophagogastroduodenoscopy (12/13/20) normal Hx of tonsillectomy Family History Mother , AT AGE 73 Cancer COLON Father , AT AGE 50 Diabetes Social History Smoking and tobacco/nicotine status: former use of tobacco/nicotine Alcohol intake: current Alcohol intake frequency: holidays/special occasions only Marital status: Current occupational status: retired Vitals/I&O/Wt Last Vital Signs Pulse 81 06/10/24 16:09 BP 141/72 06/10/24 16:09 Pulse Ox 97 06/10/24 16:09 O2 Del Method Room Air 06/10/24 15:07 Weight last 48 hrs Weight 113.398 kg Weight 113.398 kg Physical Exam Narrative: General: No acute distress, AO x3 HEENT: PERRLA, pupils bilaterally equal and reactive, pallors not present Chest: Normal vesicular breath sounds, no added sounds, equal good air entry bilaterally CVS: S1-S2 regular, no murmurs, no tachycardia, no gallops, no rubs Abdomen: Soft, nontender, no organomegaly, bowel sounds present Neuro: No focal deficits, no facial deformity, AO x3, power 5/5 in all limbs Data 06/11/24 04:22 06/11/24 04:22 Other Labs: Radiology Impressions Head CT 06/10/24 11:45 Impression: 1. Negative for acute infarct or hemorrhage. 2. Chronic changes of the cerebrum and cerebellum. Head/Neck CTA 06/10/24 11:55 IMPRESSION: CTA head demonstrates no intracranial large vessel occlusion or flow-limiting stenosis. IMPRESSION: 1. CTA neck shows severe stenosis proximal RIGHT ICA estimated at 80-90%. 2. Atherosclerosis involving other carotid and vertebral arteries in the neck without hemodynamically significant stenoses. REFERENCES: NASCET CRITERIA. The degree of stenosis in the cervical segment of the internal carotid artery is based on NASCET criteria. Normal is no stenosis. Mild is less than 50% stenosis. Moderate is 50-69% stenosis. Severe is 70% to 99% stenosis. Total occlusion is no detectable patent lumen. Laboratory Results WBC 9.78 10^3/uL (3.29-11.43) 06/11/24 04:22 RBC 4.88 10^6/uL (3.85-5.65) 06/11/24 04:22 Hgb 15.00 g/dL (11.27-16.99) 06/11/24 04:22 Hct 45.3 % (37-53) 06/11/24 04:22 MCV 92.8 fl (82-101) 06/11/24 04:22 MCH 30.7 pg (27-33) 06/11/24 04:22 MCHC 33.1 g/dL (30-55) 06/11/24 04:22 RDW 14.2 % (12.1-15.1) 06/11/24 04:22 Plt Count 260 10^3/cmm (157-399) 06/11/24 04:22 MPV 9.6 fL (7.4-10.4) 06/11/24 04:22 Neut % (Auto) 52.5 % 06/11/24 04:22 Lymph % (Auto) 23.6 % 06/11/24 04:22 [place] % (Auto) 11.7 % 06/11/24 04:22 Eos % (Auto) 11.0 % 06/11/24 04:22 Baso % (Auto) 0.7 % 06/11/24 04:22 Neut # (Auto) 5.13 10^3/uL (1.8-7.7) 06/11/24 04:22 Lymph # (Auto) 2.3 10^3/uL (0.8-4.8) 06/11/24 04:22 [place] # (Auto) 1.1 10^3/uL (0.2-0.9) H 06/11/24 04:22 Eos # (Auto) 1.1 10^3/uL (0.0-0.8) H 06/11/24 04:22 Baso # (Auto) 0.1 10^3/uL (0.0-0.1) 06/11/24 04:22 Nucleated RBC % (auto) 0 % 06/11/24 04:22 Nucleated RBCs # 0.0 /100WBC 06/11/24 04:22 PT 33.20 SECONDS (12.1-14.9) H 06/10/24 12:14 INR 3.05 (0.8-1.2) H 06/10/24 12:14 APTT 46.1 SECONDS (23.9-36.7) H 06/10/24 12:14 Sodium 136 mmol/L (136-145) 06/11/24 04:22 Potassium 2.9 mmol/L (3.5-5.1) L 06/11/24 04:22 Chloride 100 mmol/L (98-107) 06/11/24 04:22 Carbon Dioxide 25 mmol/L (22-29) 06/11/24 04:22 Anion Gap 13.9 (5-19) 06/11/24 04:22 BUN 29 mg/dL (8-23) H 06/11/24 04:22 Creatinine 1.7 mg/dL (0.7-1.2) H 06/11/24 04:22 GFR Calculation Not Reportable 06/11/24 04:22 Glucose 90 mg/dL (65-115) 06/11/24 04:22 POC Glucose 191 mg/dL (70-110) H 06/11/24 16:38 Estimat Average Glucose 166 06/11/24 04:22 Hemoglobin A1c 7.4 % (4.0-6.0) H 06/11/24 04:22 Calculated Osmolality 287 mOsm/kg (285-295) 06/11/24 04:22 Calcium 8.8 mg/dL (8.5-10.5) 06/11/24 04:22 Total Bilirubin 0.3 mg/dL (0.15-1.2) 06/11/24 04:22 AST 23 U/L (0-40) 06/11/24 04:22 ALT 23 U/L (0-41) 06/11/24 04:22 Alkaline Phosphatase 187 U/L (40-130) H 06/11/24 04:22 Total Protein 6.8 g/dL (6.6-8.7) 06/11/24 04:22 Albumin 3.2 g/dL (3.5-5.2) L 06/11/24 04:22 Globulin 3.6 g/dL (1.3-4.6) 06/11/24 04:22 Triglycerides 93 mg/dL (0-150) 06/11/24 04:22 Cholesterol 95 mg/dL (0-200) 06/11/24 04:22 LDL Cholesterol, Calc 40 mg/dL (50-129) L 06/11/24 04:22 HDL Cholesterol 36 mg/dL (60-100) L 06/11/24 04:22 LDL/HDL Ratio 1.11 RATIO (0.00-3.22) 06/11/24 04:22 Cholesterol/HDL Ratio 2.64 mg/dL (1.0-5.00) 06/11/24 04:22 Urine Color Yellow (Yellow) 06/10/24 15:14 Urine Appearance Clear (CLEAR) 06/10/24 15:14 Urine pH 6.5 (5-7) 06/10/24 15:14 Ur Specific [place] 1.020 (1.005-1.030) 06/10/24 15:14 Urine Protein Trace (Negative) A 06/10/24 15:14 Urine Glucose (UA) Negative (Normal) 06/10/24 15:14 Urine Ketones Negative (Negative) 06/10/24 15:14 Urine Blood Negative (Negative) 06/10/24 15:14 Urine Nitrate Negative (Negative) 06/10/24 15:14 Urine Bilirubin Negative (Negative) 06/10/24 15:14 Urine Urobilinogen 0.2 mg/dL (Negative) 06/10/24 15:14 Ur Leukocyte Esterase Negative (Negative) 06/10/24 15:14 Urine RBC 0-2 /hpf (0-2) 06/10/24 15:14 Urine WBC 0-5 /hpf (0-5) 06/10/24 15:14 Ur Squamous Epith Cells 0-5 /hpf (0-5) 06/10/24 15:14 Amorphous Sediment Not Reportable 06/10/24 15:14 Urine Bacteria None seen /hpf (NONE) 06/10/24 15:14 Hyaline Casts 2.46 /lpf 06/10/24 15:14 Urine Opiates Screen Negative ng/mL (Negative) 06/10/24 15:14 Ur Barbiturates Screen Negative ng/mL (Negative) 06/10/24 15:14 Ur Phencyclidine Scrn Negative ng/mL (Negative) 06/10/24 15:14 Ur Amphetamines Screen Negative ng/mL (Negative) 06/10/24 15:14 U Benzodiazepines Scrn Negative ng/mL (Negative) 06/10/24 15:14 Urine Cocaine Screen Negative ng/mL (Negative) 06/10/24 15:14 U Marijuana (THC) Screen Negative ng/mL (Negative) 06/10/24 15:14 A&P Assessment and plan (1) Stroke: Admit the patient to [facility] for close neuro monitoring he is not a TNKase candidate due to being on chronic anticoagulation with Xarelto Continue telemetry monitoring on the unit to evaluate for underlying arrhythmias. CT head unremarkable CTA head and neck with 80 to 90% right ICA stenosis Echocardiogram performed very recently on May 17, 2024 with LV systolic function of 55 to 60%, basal septal hypertrophy, left atrial dilatation. Mild pulmonary hypertension, mild AR, mild TR, mild MR. Continue Plavix 75 mg p.o. daily Hold Xarelto for now, changed to Lovenox 1 mg/kg subcutaneously in case surgical procedure is needed. Awaiting neurology recommendations with regards to timing of carotid surgery. Patient may be a candidate for early carotid intervention. Atorvastatin 40 mg daily Holding home dose of antihypertensives to allow for permissive hypertension PT OT speech therapy assessment (2) CKD (chronic kidney disease): Creatinine at 2.0 today. Baseline between 1.5-1.9. He has been placed on normal saline at 100 cc an hour in the emergency room. Will continue for 1 bag and then discontinue fluids. No signs of pulmonary edema or other hypervolemia at this time. (3) Carotid artery stenosis: As noted above PDMP PDMP Reviewed: Not Reviewed Attestations Medical Necessity Statement*: Less than 2 midnight stay anticipated at this time. Coding Level of Care Code Acute Code for Chg Fwd Diagnoses Stroke I63.9 CKD (chronic kidney disease) N18.9 Carotid artery stenosis I65.29
[2024-06-10] MEDS: pantoprazole DR 40 mg Tablet PO (18:34)
[2024-06-10] MEDS: insulin lispro 100 unit/1 mL SUBCUT ×2 (18:35→20:42)
[2024-06-10] MEDS: insulin glargine 100 units/1 mL 30 UNIT SUBCUT (18:35)
[2024-06-10 20:34] LABS: Glucose Point of Care 163 mg/dL (70-110)
[2024-06-10] MEDS: atorvastatin 40 mg Tablet 20 MG PO (20:42)
[2024-06-11] MEDS: sodium chloride 0.9% 1,000 ML 100 ML IV (02:31)
[2024-06-11 04:00] VITALS: BP 162/80; PULSE 67; RESP 18; TEMP 36.4; O2SAT 96
[2024-06-11 04:44] LABS: Basophils # 0.1 10^3/uL (0.0-0.1); Basophils % 0.7 %; Eosinophils # 1.1 10^3/uL (0.0-0.8); Hematocrit 45.3 % (37-53); Lymphocytes # 2.3 10^3/uL (0.8-4.8); Lymphocytes % 23.6 %; Mean Corpuscular HGB Conc 33.1 g/dL (30-55); Mean Corpuscular Hemoglobin 30.7 pg (27-33); Mean Corpuscular Volume 92.8 fl (82-101); Mean Platelet Volume 9.6 fL (7.4-10.4); Monocytes # 1.1 10^3/uL (0.2-0.9); Monocytes % 11.7 %; Neutrophils # 5.13 10^3/uL (1.8-7.7); Neutrophils % 52.5 %; Nucleated Red Blood Cells % 0 %; Platelet Count 260 10^3/cmm (157-399); Red Blood Count 4.88 10^6/uL (3.85-5.65); Red Cell Distribution Width 14.2 % (12.1-15.1); White Blood Count 9.78 10^3/uL (3.29-11.43)
[2024-06-11 04:53] LABS: Estmated Average Glucose 166; Hemoglobin A1C 7.4 % (4.0-6.0)
[2024-06-11 04:54] LABS: Alanine Aminotransferase 23 U/L (0-41); Albumin Level 3.2 g/dL (3.5-5.2); Alkaline Phosphatase 187 U/L (40-130); Anion Gap 13.9 (5-19); Aspartate Amino Transferase 23 U/L (0-40); Blood Urea Nitrogen 29 mg/dL (8-23); Calcium 8.8 mg/dL (8.5-10.5); Carbon Dioxide 25 mmol/L (22-29); Chloride 100 mmol/L (98-107); Chol HDL Ratio 2.64 mg/dL (1.0-5.00); Cholesterol 95 mg/dL (0-200); Creatinine Clr Calc Pharmacy 48.5742; Globulin 3.6 g/dL (1.3-4.6); Glucose 90 mg/dL (65-115); HDL Cholesterol 36 mg/dL (60-100); LDL Cholesterol Calculated 40 mg/dL (50-129); LDL HDL Ratio 1.11 RATIO (0.00-3.22); Osmolality Calculated 287 mOsm/kg (285-295); Sodium 136 mmol/L (136-145); Total Bilirubin 0.3 mg/dL (0.15-1.2); Total Protein 6.8 g/dL (6.6-8.7); Triglycerides 93 mg/dL (0-150)
[2024-06-11 04:56] LABS: Potassium 2.9 mmol/L (3.5-5.1)
[2024-06-11] MEDS: lidocaine 1% 5 ML in potassium chloride premix 100 ML 25 ML IV (05:17)
[2024-06-11 06:26] LABS: Glucose Point of Care 88 mg/dL (70-110)
[2024-06-11 08:00] VITALS: BP 169/88; PULSE 72; TEMP 36.5; O2SAT 97
[2024-06-11] MEDS: clopidogrel 75 mg Tablet PO (08:29)
[2024-06-11] MEDS: enoxaparin 120 mg/0.8 mL Syringe SUBCUT (08:29)
[2024-06-11] MEDS: hyDRALAzine 25 mg Tablet PO ×2 (08:29→17:48)
[2024-06-11] MEDS: carvedilol 12.5 mg Tablet PO ×2 (08:29→17:48)
[2024-06-11] MEDS: pantoprazole DR 40 mg Tablet PO ×2 (08:29→17:48)
--- NOTE | 2024-06-11 10:06 | PC.CHAP ---
Pastoral Care Encounter/Spiritual Assessment Type of Contact [] Declined research mechanic visit [] Patient/Family/Request visit [] Outpatient visit [] Follow-up visit [] Physician referral [] Code/Alert [X] Routine visit [] Staff referral [] Actively dying [] Patient sleeping [] Family support [] [] Out of room [] Palliative care [] [] Receiving care in room [] Pre-surgical visit [] Trauma [] Long length of stay [] ICU visit [] Other: Jehovah Witness Relational/Emotional Strength [X] Patient feels connected with others/family/visitors/staff [] Distress [] Loneliness/isolation [] Abandonment Spirituality of Patient [X] Person of Marta [X] Attends [employer] of their Marta [X] Believes in Prayer [] Reads Bible or Yazidi materials [] There are Spiritual issues to be addressed Hall Manager Interventions [] Prayer [X] Active listening [X] Non-anxious presence [] Spiritual/emotional support [] Crisis/trauma care [] Spiritual counseling [] Bereavement support [] Provided bereavement packet [] Provided Bible/devotional materials [] Provided toy/stuffed animal, coloring book to patient or family member [] Provided Communion [] Anointing/[place] [] Salvation [] Completed spiritual assessment [] Other: Impact on Illness or Injury [] Angry [] Fearful [] Anxious [] Often cries [] Exhaustion [] Unable to work [] Unable to attend oriental orthodox [] Unable to walk/stand [] Unable to read [] Unable to drive [] Unable to eat/drink [] Unable to sleep [] Unable to be with family [] Patient intubated [] Other: Summary 1 Discussed God and [place] Time spent with patient 30
[2024-06-11 11:13] LABS: Glucose Point of Care 163 mg/dL (70-110)
[2024-06-11 11:19] VITALS: BP 143/74; PULSE 79; RESP 17; TEMP 36.6; O2SAT 96
[2024-06-11] MEDS: acetaminophen 325 mg Tablet 650 MG PO (11:40)
[2024-06-11] MEDS: insulin lispro 100 unit/1 mL SUBCUT ×2 (11:40→17:48)
[2024-06-11 16:40] VITALS: BP 168/87; PULSE 65; O2SAT 98
[2024-06-11 16:41] LABS: Glucose Point of Care 191 mg/dL (70-110)
[2024-06-11] MEDS: insulin glargine 100 units/1 mL 30 UNIT SUBCUT (17:49)
--- NOTE | 2024-06-11 18:09 | P.TS_ITS ---
Transfer Summary Providers Date of Admission: 06/10/24 15:21 Date of Discharge/Transfer: 06/11/24 Attending Provider at Admission: Marie Barney MD Attending Provider at Transfer: Marie Barney MD Transfer Plans: Anticipated date of transfer: 06/11/24 . Receiving Facility: [facility] . Receiving Provider: Dr. Alegria, hospitalist . Diagnoses at Discharge Discharge Diagnosis (1) Stroke: Status: Acute (2) CKD (chronic kidney disease): Status: Chronic (3) Carotid artery stenosis: Status: Acute Reason for Visit Reason for Visit stroke like symptom Hospital Course Hospital Course Andrés Dumont is a 79 year old male With a past medical history of hypertension, diabetes mellitus, A-fib chronically on Xarelto who was brought to the emergency room with significant left-sided weakness and dysarthria. Stroke code was called. He was evaluated by neurology. Patient was not a candidate for TNKase as he is on chronic anticoagulation. CT of the head was negative for any acute infarct or hemorrhage. CTA of the head and neck showed severe stenosis of the proximal right ICA estimated at 80 to 90%. Of note patient had recently been in the hospital on May 18 2024 when he had presented with generalized weakness confusion. 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 Carotid Doppler performed on that stay had showed 50% stenosis in the carotid arteries bilaterally, however on the CTA it is currently estimated at 80 to 90%. Started to improve by the time he returned from CAT scan. He was admitted to the hospital for stroke monitoring. He was evaluated by neurology, it was opined that patient would likely benefit from further carotid intervention via endarterectomy or stent placement. Call was placed to [facility] and patient was accepted under hospitalist care with consult with vascular surgery. We currently do not have vascular surgery services available at [facility] for patient was transferred for further care. He is stable at the time of discharge On the hospital. He received Plavix, Lovenox 100 mg subcutaneously, atorvastatin. He was noted to have hypokalemia this morning which was supplemented with IV potassium. He was on insulin sliding scale and Lantus for diabetes mellitus. Physical Exam Narrative: General: No acute distress, AO x3 HEENT: PERRLA, pupils bilaterally equal and reactive, pallors not present Chest: Normal vesicular breath sounds, no added sounds, equal good air entry bilaterally CVS: S1-S2 regular, no murmurs, no tachycardia, no gallops, no rubs Abdomen: Soft, nontender, no organomegaly, bowel sounds present Neuro: No focal deficits, no facial deformity, AO x3 TS Data Studies Completed and Pending Completed Studies During Hospitalization Category Date Time Status CT angio headneck* [id number] Stat Cat Scan 06/10/24 11:[address] head thrombolytic [id number] Stat Cat Scan 06/10/24 11:45 Completed Laboratory Last Values WBC 9.78 10^3/uL (3.29-11.43) 06/11/24 04:22 RBC 4.88 10^6/uL (3.85-5.65) 06/11/24 04:22 Hgb 15.00 g/dL (11.27-16.99) 06/11/24 04:22 Hct 45.3 % (37-53) 06/11/24 04:22 MCV 92.8 fl (82-101) 06/11/24 04:22 MCH 30.7 pg (27-33) 06/11/24 04:22 MCHC 33.1 g/dL (30-55) 06/11/24 04:22 RDW 14.2 % (12.1-15.1) 06/11/24 04:22 Plt Count 260 10^3/cmm (157-399) 06/11/24 04:22 MPV 9.6 fL (7.4-10.4) 06/11/24 04:22 Neut % (Auto) 52.5 % 06/11/24 04:22 Lymph % (Auto) 23.6 % 06/11/24 04:22 [place] % (Auto) 11.7 % 06/11/24 04:22 Eos % (Auto) 11.0 % 06/11/24 04:22 Baso % (Auto) 0.7 % 06/11/24 04:22 Neut # (Auto) 5.13 10^3/uL (1.8-7.7) 06/11/24 04:22 Lymph # (Auto) 2.3 10^3/uL (0.8-4.8) 06/11/24 04:22 [place] # (Auto) 1.1 10^3/uL (0.2-0.9) H 06/11/24 04:22 Eos # (Auto) 1.1 10^3/uL (0.0-0.8) H 06/11/24 04:22 Baso # (Auto) 0.1 10^3/uL (0.0-0.1) 06/11/24 04:22 Nucleated RBC % (auto) 0 % 06/11/24 04:22 Nucleated RBCs # 0.0 /100WBC 06/11/24 04:22 PT 33.20 SECONDS (12.1-14.9) H 06/10/24 12:14 INR 3.05 (0.8-1.2) H 06/10/24 12:14 APTT 46.1 SECONDS (23.9-36.7) H 06/10/24 12:14 Sodium 136 mmol/L (136-145) 06/11/24 04:22 Potassium 2.9 mmol/L (3.5-5.1) L 06/11/24 04:22 Chloride 100 mmol/L (98-107) 06/11/24 04:22 Carbon Dioxide 25 mmol/L (22-29) 06/11/24 04:22 Anion Gap 13.9 (5-19) 06/11/24 04:22 BUN 29 mg/dL (8-23) H 06/11/24 04:22 Creatinine 1.7 mg/dL (0.7-1.2) H 06/11/24 04:22 GFR Calculation Not Reportable 06/11/24 04:22 Glucose 90 mg/dL (65-115) 06/11/24 04:22 POC Glucose 191 mg/dL (70-110) H 06/11/24 16:38 Estimat Average Glucose 166 06/11/24 04:22 Hemoglobin A1c 7.4 % (4.0-6.0) H 06/11/24 04:22 Calculated Osmolality 287 mOsm/kg (285-295) 06/11/24 04:22 Calcium 8.8 mg/dL (8.5-10.5) 06/11/24 04:22 Total Bilirubin 0.3 mg/dL (0.15-1.2) 06/11/24 04:22 AST 23 U/L (0-40) 06/11/24 04:22 ALT 23 U/L (0-41) 06/11/24 04:22 Alkaline Phosphatase 187 U/L (40-130) H 06/11/24 04:22 Total Protein 6.8 g/dL (6.6-8.7) 06/11/24 04:22 Albumin 3.2 g/dL (3.5-5.2) L 06/11/24 04:22 Globulin 3.6 g/dL (1.3-4.6) 06/11/24 04:22 Triglycerides 93 mg/dL (0-150) 06/11/24 04:22 Cholesterol 95 mg/dL (0-200) 06/11/24 04:22 LDL Cholesterol, Calc 40 mg/dL (50-129) L 06/11/24 04:22 HDL Cholesterol 36 mg/dL (60-100) L 06/11/24 04:22 LDL/HDL Ratio 1.11 RATIO (0.00-3.22) 06/11/24 04:22 Cholesterol/HDL Ratio 2.64 mg/dL (1.0-5.00) 06/11/24 04:22 Urine Color Yellow (Yellow) 06/10/24 15:14 Urine Appearance Clear (CLEAR) 06/10/24 15:14 Urine pH 6.5 (5-7) 06/10/24 15:14 Ur Specific [place] 1.020 (1.005-1.030) 06/10/24 15:14 Urine Protein Trace (Negative) A 06/10/24 15:14 Urine Glucose (UA) Negative (Normal) 06/10/24 15:14 Urine Ketones Negative (Negative) 06/10/24 15:14 Urine Blood Negative (Negative) 06/10/24 15:14 Urine Nitrate Negative (Negative) 06/10/24 15:14 Urine Bilirubin Negative (Negative) 06/10/24 15:14 Urine Urobilinogen 0.2 mg/dL (Negative) 06/10/24 15:14 Ur Leukocyte Esterase Negative (Negative) 06/10/24 15:14 Urine RBC 0-2 /hpf (0-2) 06/10/24 15:14 Urine WBC 0-5 /hpf (0-5) 06/10/24 15:14 Ur Squamous Epith Cells 0-5 /hpf (0-5) 06/10/24 15:14 Amorphous Sediment Not Reportable 06/10/24 15:14 Urine Bacteria None seen /hpf (NONE) 06/10/24 15:14 Hyaline Casts 2.46 /lpf 06/10/24 15:14 Urine Opiates Screen Negative ng/mL (Negative) 06/10/24 15:14 Ur Barbiturates Screen Negative ng/mL (Negative) 06/10/24 15:14 Ur Phencyclidine Scrn Negative ng/mL (Negative) 06/10/24 15:14 Ur Amphetamines Screen Negative ng/mL (Negative) 06/10/24 15:14 U Benzodiazepines Scrn Negative ng/mL (Negative) 06/10/24 15:14 Urine Cocaine Screen Negative ng/mL (Negative) 06/10/24 15:14 U Marijuana (THC) Screen Negative ng/mL (Negative) 06/10/24 15:[address] 06/10/24 11:45 Impression: 1. Negative for acute infarct or hemorrhage. 2. Chronic changes of the cerebrum and cerebellum. Head/Neck CTA 06/10/24 11:55 IMPRESSION: CTA head demonstrates no intracranial large vessel occlusion or flow-limiting stenosis. IMPRESSION: 1. CTA neck shows severe stenosis proximal RIGHT ICA estimated at 80-90%. 2. Atherosclerosis involving other carotid and vertebral arteries in the neck without hemodynamically significant stenoses. REFERENCES: NASCET CRITERIA. The degree of stenosis in the cervical segment of the internal carotid artery is based on NASCET criteria. Normal is no stenosis. Mild is less than 50% stenosis. Moderate is 50-69% stenosis. Severe is 70% to 99% stenosis. Total occlusion is no detectable patent lumen. Recent Clincial Data Last Vital Signs Temp 97.8 F 06/11/24 11:19 Pulse 65 06/11/24 16:40 Resp 17 06/11/24 11:19 BP 168/87 06/11/24 16:40 Pulse Ox 98 06/11/24 16:40 O2 Del Method Room Air 06/11/24 16:40 Vital Signs Temp Pulse Resp BP Pulse Ox O2 Del Method 06/11/24 16:40 65 168/87 98 Room Air 06/11/24 11:19 97.8 F 79 17 143/74 96 Room Air 06/11/24 08:00 97.7 F 72 169/88 97 Room Air Intake & Output/Weight 06/09/24 06/10/24 06/11/24 06/12/24 06:59 06:59 06:59 06:59 Intake Total 1153.333 / 5037.465 8948 / 1105 Output Total 900 / 900 500 / 500 Balance 253.333 / 253.333 605 / 605 Weight 116.437 kg Vitals Last Vital Signs Temp 97.8 F 06/11/24 11:19 Pulse 65 06/11/24 16:40 Resp 17 06/11/24 11:19 BP 168/87 06/11/24 16:40 Pulse Ox 98 06/11/24 16:40 O2 Del Method Room Air 06/11/24 16:40 TS Medications Medications Acetaminophen (Acetaminophen 325 Mg Tablet) 650 mg PO Q6H PRN PRN Reason: Mild/Mod Pain Or Temp >/= 101 Last Admin: 06/11/24 11:40 Dose: 650 mg Atorvastatin Calcium (Atorvastatin 40 Mg Tablet) 20 mg PO BEDTIME [facility] Last Admin: 06/10/24 20:42 Dose: 20 mg Carvedilol (Carvedilol 12.5 Mg Tablet) 12.5 mg PO BID [facility] Last Admin: 06/11/24 17:48 Dose: 12.5 mg Clopidogrel Bisulfate (Clopidogrel 75 Mg Tablet) 75 mg PO DAILY [facility] Last Admin: 06/11/24 08:29 Dose: 75 mg Enoxaparin Sodium (Enoxaparin 120 Mg/0.8 Ml Syringe) 120 mg SUBCUT Q24H [facility] Last Admin: 06/11/24 08:29 Dose: 120 mg Glucagon (Glucagon 1 Mg/Ml Kit 1 Ml) 1 mg IM ONCE PRN; Protocol PRN Reason: Adult Acute Hypoglycemia Nursing Prot. Hydralazine HCl (Hydralazine 25 Mg Tablet) 25 mg PO BID [facility] Last Admin: 06/11/24 17:48 Dose: 25 mg Dextrose (D5w) 500 mls @ 0 mls/hr IV ONCE PRN; Protocol PRN Reason: Adult Acute Hypoglycemia Prot Dextrose (D10w) 125 mls @ 750 mls/hr IV PRN PRN; Protocol PRN Reason: Adult Acute Hypoglycemia Nursing Protocol Dextrose (D10w) 250 mls @ 1,000 mls/hr IV PRN PRN; Protocol PRN Reason: Adult Acute Hypoglycemia Nursing Protocol Insulin Glargine (Insulin Glargine 100 Units/1 Ml) 30 unit SUBCUT BID [facility] Last Admin: 06/11/24 17:49 Dose: 30 unit Insulin Human Lispro (Insulin Lispro 100 Unit/1 Ml) 0 unit SUBCUT WM&BEDTIME [facility]; Protocol Last Admin: 06/11/24 17:48 Dose: 4 unit Pantoprazole Sodium (Pantoprazole Dr 40 Mg Tablet) 40 mg PO BID [facility] Last Admin: 06/11/24 17:48 Dose: 40 mg Discontinued Medications Sodium Chloride (Sodium Chloride 0.9%) 1,000 mls @ 100 mls/hr IV .Q10H [facility] Last Infusion: 06/11/24 08:07 Dose: Infused Lidocaine HCl 5 ml/ Potassium (Chloride) 105 mls @ 26.25 mls/hr IV ONCE ONE Stop: 06/11/24 08:59 Last Infusion: 06/11/24 09:36 Dose: Infused Iohexol (Iohexol 350 Mg/Ml 500 Ml Btl (Per Ml)) 0 ml IV ONCE ONE Stop: 06/10/24 12:02 Last Admin: 06/10/24 12:01 Dose: 100 ml Rivaroxaban (Rivaroxaban 10 Mg Tablet) 10 mg PO DAILY [facility] Allergies lovastatin Allergy (Verified 05/17/24 11:31) RASH Home Medications pantoprazole 40 mg tablet,delayed release 40 mg PO BID 11/19/20 [History Confirmed 06/10/24] fluticasone propionate 50 mcg/actuation nasal spray,suspension 2 spray intranasal DAILY PRN Nasal Congestion 09/18/21 [History Confirmed 06/10/24] glipizide 10 mg tablet, extended release 24 hr 10 mg PO DAILY 09/18/21 [History Confirmed 06/10/24] triamterene 75 mg-hydrochlorothiazide 50 mg tablet 1 tab PO DAILY 12/18/21 [History Confirmed 06/10/24] furosemide 20 mg tablet (Lasix) 20 mg PO DAILY PRN Edema 11/16/23 [History Confirmed 06/10/24] carvedilol 12.5 mg tablet 12.5 mg PO BID #180 tabs 03/28/24 [Rx Confirmed 06/10/24] hydralazine 25 mg tablet 25 mg PO BID #180 tabs 03/28/24 [Rx Confirmed 06/10/24] multivitamin (Multiple Vitamins tablet) 1 tab PO DAILY 03/28/24 [History Confirmed 06/10/24] insulin glargine 100 unit/mL (3 mL) subcutaneous pen (Lantus Solostar U-100 Insulin) 30 unit SUBCUT BID 05/17/24 [History Confirmed 06/10/24] lisinopril 20 mg tablet 20 mg PO DAILY 05/17/24 [History Confirmed 06/10/24] rivaroxaban 20 mg tablet (Xarelto) 20 mg PO DAILY #30 tabs 05/18/24 [Rx Confirmed 06/10/24] rosuvastatin 40 mg tablet 40 mg PO DAILY #30 tabs 05/18/24 [Rx Confirmed 06/10/24] potassium chloride 10 mEq tablet,extended release 10 meq PO BID 06/10/24 [History Confirmed 06/10/24] Discharge Plan Discharge Patient Disposition: Home Condition: Stable Prescriptions: No Action pantoprazole 40 mg tablet,delayed release (DR/EC) 40 mg PO BID triamterene-hydrochlorothiazid 75-50 mg tablet 1 tab PO DAILY furosemide [Lasix] 20 mg tablet 20 mg PO DAILY PRN (Reason: Edema) multivitamin [Multiple Vitamins] Tablet 1 tab PO DAILY carvedilol 12.5 mg tablet 12.5 mg PO BID Qty: 180 3RF Rx Instructions: must administer with a meal/food hydralazine 25 mg tablet 25 mg PO BID Qty: 180 3RF glipizide 10 mg tablet extended release 24hr 10 mg PO DAILY fluticasone propionate 50 mcg/actuation [place],Suspension 2 spray INTRANASAL DAILY PRN (Reason: Nasal Congestion) Rx Instructions: administer into each nostril lisinopril 20 mg tablet 20 mg PO DAILY insulin glargine [Lantus Solostar U-100 Insulin] 100 unit/mL (3 mL) insulin pen 30 unit SUBCUT BID rosuvastatin 40 mg tablet 40 mg PO DAILY Qty: 30 0RF Xarelto 20 mg tablet 20 mg PO DAILY Qty: 30 0RF Rx Instructions: must administer with evening meal potassium chloride 10 mEq tablet extended release 10 meq PO BID Patient Instructions: Opioid Safety Transfer Attestations Time Spent in Transfer Care: greater than 30 min Quality Metrics Clinical Quality Measures [ Cerebrovascular Accident { Contraindication to Antithrombotic: Medical contraindication; Contraindication to Anticoagulation: None; anticoagulation prescribed; Contraindication to Statin: None; Statin prescribed;}] Coding Level of Care Code Acute Code for [facility] Fwd Diagnoses Stroke I63.9 CKD (chronic kidney disease) N18.9 Carotid artery stenosis I65.29
[2024-06-11 18:26] VITALS: BP 143/74; PULSE 79; RESP 17; TEMP 36.6; O2SAT 96
== END 2024-06-11 18:28 | disposition home or self-care (01) ==
LOC: ER 15:15 → MEDSURG 15:22
PROVIDERS: Admitting Provider Student in an Organized Health Care Education/Training Program; Emergency Provider Family Medicine; Visit Provider Student in an Organized Health Care Education/Training Program
DX: I63.511 Cerebral infarction due to unspecified occlusion or stenosis of right middle cerebral artery (principal); R29.706 NIHSS score 6; Z79.4 Long term (current) use of insulin; E11.22 Type 2 diabetes mellitus with diabetic chronic kidney disease; I12.9 Hypertensive chronic kidney disease with stage 1 through stage 4 chronic kidney disease, or unspecified chronic kidney disease; N18.9 Chronic kidney disease, unspecified; I48.20 Chronic atrial fibrillation, unspecified; I65.23 Occlusion and stenosis of bilateral carotid arteries; I73.9 Peripheral vascular disease, unspecified; E11.42 Type 2 diabetes mellitus with diabetic polyneuropathy; Z87.891 Personal history of nicotine dependence; G47.30 Sleep apnea, unspecified; E66.01 Morbid (severe) obesity due to excess calories; Z68.33 Body mass index [BMI] 33.0-33.9, adult; Z79.01 Long term (current) use of anticoagulants; E87.6 Hypokalemia; Z86.73 Personal history of transient ischemic attack (TIA), and cerebral infarction without residual deficits; I25.10 Atherosclerotic heart disease of native coronary artery without angina pectoris
CPT/HCPCS: 36415; 36416; 70450; 70496; 70498; 80053; 80061; 80306; 81001; 82962; 83036; 85025; 85610; 85730; 92523; 92610; 93005; 96372; 97161; 97165; G0378; J1650; J1815; J3480; J7030; J9999

== ENCOUNTER 2024-07-06 14:11 | Outpatient (RCR) | payer MEDICARE, OTHER, SELFPAY | END 2024-07-20 23:59 | disposition home or self-care (01) | LOC: SST 14:11 | PROVIDERS: Visit Provider Electrodiagnostic Medicine | DX: I69.322 Dysarthria following cerebral infarction (principal) | CPT/HCPCS: 92507; 92523; 92526; 92610 ==

== ENCOUNTER 2024-07-13 09:09 | Outpatient (CLI) | payer MEDICARE, OTHER, SELFPAY ==
--- NOTE | 2024-07-13 09:17 | FL_ITS ---
WS: [id number] Exam: FL barium swallow modifd [id number] Date/Time of Exam: 07/13/2024 9:39 AM Reason For Exam: Other dysphagia Fluoroscopy time: 2min [id number] minutes # of spot films: Modified barium swallow test is performed in conjunction with the speech therapy service. There was mild penetration into the laryngeal inlet when the patient swallowed thin liquid barium. The patient tolerated the remaining barium mixture foodstuffs without aspiration or penetration. The patient swallowed a barium tablet without difficulty. FL/FL barium swallow modifd [id number] IMPRESSION: 1. Mild penetration into the laryngeal inlet when the patient swallowed thin li quid barium. 2. No aspiration. No other significant finding. A separate report and recommendations will follow from the speech therapy servi ce.
== END 2024-07-13 09:10 | disposition home or self-care (01) ==
LOC: RAD 09:10
PROVIDERS: PCP Electrodiagnostic Medicine; Visit Provider Electrodiagnostic Medicine
DX: I69.322 Dysarthria following cerebral infarction (principal); R93.89 Abnormal findings on diagnostic imaging of other specified body structures
CPT/HCPCS: 74230; 92611

== ENCOUNTER 2024-07-23 13:14 | Inpatient (IN) | payer MEDICARE, OTHER, SELFPAY ==
[2024-07-23] VITALS (9 sets, daily range): BP systolic 85–157; BP diastolic 52–77; PULSE 74–97; RESP 15–22; TEMP 36.5–36.7; O2SAT 96–100; BMI 30.5
--- NOTE | 2024-07-23 13:19 | XRR_ITS ---
PROCEDURE INFORMATION: Exam: XR Chest Exam date and time: 07/23/2024 1:32 PM Age: 79 years old Clinical indication: Injury or trauma; Fall; Blunt trauma (contusions or hematomas) TECHNIQUE: Imaging protocol: Radiologic exam of the chest. Views: 1 view. COMPARISON: CR XR chest 1V portable [id number] 05/17/2024 11:46 AM FINDINGS: Lungs: There is no consolidation. Pleural spaces: There is no pleural effusion or pneumothorax. Heart/Mediastinum: Cardiomediastinal contours are unremarkable. Prominent epicardial fat pad incidentally noted. Bones/joints: There are chronic left posterior 4th through 7th rib fractures. No acute osseous findings. XR/XR chest 1V portable [id number] IMPRESSION: No acute findings.
--- NOTE | 2024-07-23 13:19 | XRR_ITS ---
PROCEDURE INFORMATION: Exam: XR Right Hip Exam date and time: 07/23/2024 1:37 PM Age: 79 years old Clinical indication: Injury or trauma; Fall; Blunt trauma (contusions or hematomas); Right; Hip and pelvic region TECHNIQUE: Imaging protocol: Radiologic exam of the right hip. Views: 1 view hip with pelvis when performed. COMPARISON: CT abdomen pelvis w con* [id number] 05/17/2024 1:01 PM FINDINGS: Bones/joints: There is a comminuted displaced intratrochanteric fracture of the right femur. There is mild varus angulation at the fracture site. Femoroacetabular alignment is normal. No visible pelvic fracture. There is moderate degenerative disease in the lower lumbar spine. Soft tissues: Unremarkable. Vasculature: Vascular calcification is present. XR/XR hip RT 2-3V wo/w pel* [id number] IMPRESSION: Comminuted displaced intertrochanteric fracture of the right femur.
--- NOTE | 2024-07-23 13:19 | ECG_ITS ---
[facility] Date: 2024-07[facility]23 Pat Name: Andrés Dumont Department: Room: Gender: Male Community Service Specialist: : [id number] Requested By: Ne Vasquez Order Number: [id number] Twila MD: Duane Mccullough M.D. Measurements Intervals [place] Rate: 84 P: 0 MN: 0 QRS: -35 QRSD: 82 T: 41 QT: 382 QTc: 453 Interpretive Statements ATRIAL FIBRILLATION LOW QRS VOLTAGE IN EXTREMITY LEADS [QRS DEFLECTION < 0.5 mV IN LIMB LEADS] INFERIOR MYOCARDIAL INFARCTION , PROBABLY OLD [40+ ms Q WAVE AND/OR ST/T ABNORMALITY IN II/aVF] Compared to ECG 06/10/2024 12:07:22 Low QRS voltage now present Left anterior fascicular block no longer present Myocardial infarct finding still present Electronically Signed On 07-25-2024 09:19:06 CDT by Duane Mccullough M.D. [email or web address]
--- NOTE | 2024-07-23 13:23 | W.ED.WEAKNES ---
HPI - Weakness General: Chief complaint: Weakness Stated complaint: right hip pain s/p fall Time Seen by Provider: 07/23/24 13:16 Source: patient and EMS Mode of arrival: EMS Limitations: no limitations History of Present Illness: 79-year-old male states that today he had felt lightheaded and fell he is unsure if he passed out states he has right hip pain he is unsure if he hit his head he states he believe he did have a syncopal event. States he has been having some generalized weakness he denies any chest pain denies any headache he states he has not been able ambulate on that right hip he denies any vomiting or diarrhea. Associated symptoms: Reports syncope; Denies chest pain, chills, fever(s), headache(s), nausea or vomiting Review of Systems Const: Denies: fever(s), chills, body aches or change in appetite Eyes: Denies: blurry vision ENMT: Denies: throat pain or dental pain Card: Reports: syncope; Denies: chest pain Resp: Denies: dyspnea GI: Denies: abdominal pain, nausea, vomiting or diarrhea Musc: Reports: extremity pain; Denies: neck pain or back pain Skin/Breast: Denies: rash Neuro: Denies: headache(s) PFSH ED PFSH: Medical History Hypertension Anticoagulation adequate with anticoagulant therapy Atrial fibrillation with controlled ventricular rate BPH (benign prostatic hyperplasia) Mass of right kidney Diabetes mellitus Acute cholecystitis Callus of foot Chronic ulcer of great toe of right foot, limited to breakdown of skin Hammertoe Peripheral arterial disease Diabetic peripheral neuropathy associated with type 2 diabetes mellitus Diabetes mellitus GERD (gastroesophageal reflux disease) Venous insufficiency Prostatitis, acute Acute cystitis with hematuria Surgical History Hx of cholecystectomy Status post right inguinal hernia repair Status post colonoscopy (12/13/20) descending colon polyp H/O esophagogastroduodenoscopy (12/13/20) normal Hx of tonsillectomy Family History Mother , AT AGE 73 Cancer COLON Father , AT AGE 50 Diabetes Social History Smoking and tobacco/nicotine status: former use of tobacco/nicotine Alcohol intake: current Alcohol intake frequency: holidays/special occasions only Marital status: Current occupational status: retired Physical Exam Const: COMMON NORMALS: patient oriented x3 HENMT: COMMON NORMALS: normocephalic and atraumatic HEAD & SCALP: normocephalic and atraumatic Eye: COMMON NORMALS: conjunctivae normal CONJUNCTIVA: Yes conjunctivae normal Neck/C-Spine: COMMON NORMALS: full ROM and supple Chest: COMMONS NORMALS: normal inspection of the chest Resp: COMMON NORMALS: normal respiratory effort, No retractions, No use of accessory muscles and clear to auscultation bilaterally AUSCULTATION: clear to auscultation bilaterally Cardio: COMMON NORMALS: regular rate, regular rhythm and No murmurs present (Cardio) RATE: regular rate RHYTHM: regular rhythm GI: COMMON NORMALS: Normal to inspection, nondistended, normoactive bowel sounds present, Soft to palpation, non-tender and no masses PALPATION: Yes Soft to palpation Extremity: NARRATIVE EXTREMITY EXAM: tenderness to right hip Neuro: COMMON NORMALS: patient oriented x3, moves all extremities and no focal motor deficits Psych: COMMON NORMALS: mental status grossly normal, Normal thought process present and cooperative THOUGHT PROCESS: Normal thought process present Skin: COMMON NORMALS: no rashes or lesions noted and no wounds GENERAL SKIN EXAM: no rashes or lesions noted Course Vital Signs: Vital signs: Vital Signs Temperature 98.1 F 07/23/24 13:15 Pulse Rate 83 07/23/24 13:15 Respiratory Rate 22 H 07/23/24 14:03 Blood Pressure 101/53 07/23/24 13:23 Pulse Oximetry 100 07/23/24 14:03 Oxygen Delivery Me thod Room Air 07/23/24 13:15 MDM - Weakness Medical Decision Making Patient presents here after a syncopal event does have a right hip fracture from his fall head CT blood work here is normal his blood pressures been stable I spoke to hospitalist along with orthopedist and will admit. Medical Records I reviewed the patient's medical records. Lab Data I reviewed the patient's lab results. 07/23/24 12:55 07/23/24 12:55 Radiology Impressions Chest X-Ray 07/23/24 13:19 IMPRESSION: No acute findings. Hip/Pelvis X-Ray 07/23/24 13:19 IMPRESSION: Comminuted displaced intertrochanteric fracture of the right femur. Head CT 07/23/24 13:55 IMPRESSION: 1. No acute intracranial finding. 2. Chronic right occipital lobe infarct. 3. Calcified atherosclerotic changes are seen in the left intracranial vertebral artery and bilateral internal carotid artery cavernous segment. 4. Cortical atrophy is present. 5. Likely severe small-vessel ischemic changes. Abdomen/Pelvis CT 07/23/24 14:28 IMPRESSION: 1. Comminuted displaced right intertrochanteric femoral fracture. 2. No sign of significant intra-abdominal injury. 3. Incidental findings above. Laboratory Results WBC 10.31 10^3/uL (3.29-11.43) 07/23/24 12:55 RBC 5.01 10^6/uL (3.85-5.65) 07/23/24 12:55 Hgb 15.20 g/dL (11.27-16.99) 07/23/24 12:55 Hct 45.7 % (37-53) 07/23/24 12:55 MCV 91.2 fl (82-101) 07/23/24 12:55 MCH 30.3 pg (27-33) 07/23/24 12:55 MCHC 33.3 g/dL (30-55) 07/23/24 12:55 RDW 14.5 % (12.1-15.1) 07/23/24 12:55 Plt Count 370 10^3/cmm (157-399) 07/23/24 12:55 MPV 10.3 fL (7.4-10.4) 07/23/24 12:55 Neut % (Auto) 72.4 % 07/23/24 12:55 Lymph % (Auto) 13.9 % 07/23/24 12:55 Winkler % (Auto) 11.1 % 07/23/24 12:55 Eos % (Auto) 1.6 % 07/23/24 12:55 Baso % (Auto) 0.4 % 07/23/24 12:55 Neut # (Auto) 7.47 10^3/uL (1.8-7.7) 07/23/24 12:55 Lymph # (Auto) 1.4 10^3/uL (0.8-4.8) 07/23/24 12:55 Winkler # (Auto) 1.1 10^3/uL (0.2-0.9) H 07/23/24 12:55 Eos # (Auto) 0.2 10^3/uL (0.0-0.8) 07/23/24 12:55 Baso # (Auto) 0.0 10^3/uL (0.0-0.1) 07/23/24 12:55 Nucleated RBC % (auto) 0 % 07/23/24 12:55 Nucleated RBCs # 0.0 /100WBC 07/23/24 12:55 PT 16.20 SECONDS (12.1-14.9) H 07/23/24 12:55 INR 1.22 (0.8-1.2) H 07/23/24 12:55 Sodium 131 mmol/L (136-145) L 07/23/24 12:55 Potassium 4.1 mmol/L (3.5-5.1) 07/23/24 12:55 Chloride 93 mmol/L (98-107) L 07/23/24 12:55 Carbon Dioxide 23 mmol/L (22-29) 07/23/24 12:55 Anion Gap 19.1 (5-19) H 07/23/24 12:55 BUN 26 mg/dL (8-23) H 07/23/24 12:55 Creatinine 1.6 mg/dL (0.7-1.2) H 07/23/24 12:55 GFR Calculation Not Reportable 07/23/24 12:55 Glucose 188 mg/dL (65-115) H 07/23/24 12:55 Calculated Osmolality 282 mOsm/kg (285-295) L 07/23/24 12:55 Calcium 9.3 mg/dL (8.5-10.5) 07/23/24 12:55 Total Bilirubin 0.7 mg/dL (0.15-1.2) 07/23/24 12:55 AST 23 U/L (0-40) 07/23/24 12:55 ALT 19 U/L (0-41) 07/23/24 12:55 Alkaline Phosphatase 104 U/L (40-130) 07/23/24 12:55 Total Protein 7.1 g/dL (6.6-8.7) 07/23/24 12:55 Albumin 3.6 g/dL (3.5-5.2) 07/23/24 12:55 Globulin 3.5 g/dL (1.3-4.6) 07/23/24 12:55 All radiology interpretation(s) finalized by discharge EKG Data EKG 1: I personally reviewed and interpreted this EKG as follows: EKG interpretation date: 07/23/24 EKG interpretation time: 13:33 Interpretation: afib hr [address] elevation qrs 82 qtc 423 Discharge Plan Discharge Patient Disposition: Admitted As Inpatient Clinical Impression: Closed fracture of right hip, Syncope Condition: Stable Coding Level of Care Code ED [employer] for [employer] Fwd Related Data Home Medications ?Medication ?Instructions ?Recorded ?Confirmed pantoprazole 40 mg tablet,delayed 40 mg PO BID 11/19/20 07/23/24 release fluticasone propionate 50 2 spray intranasal DAILY PRN Nasal 09/18/21 07/23/24 mcg/actuation nasal Congestion spray,suspension glipizide 10 mg tablet, extended 10 mg PO DAILY 09/18/21 07/23/24 release 24 hr triamterene 75 1 tab PO DAILY 12/18/21 07/23/24 mg-hydrochlorothiazide 50 mg tablet furosemide 20 mg tablet (Lasix) 20 mg PO DAILY PRN Edema 11/16/23 07/23/24 multivitamin (Multiple Vitamins 1 tab PO DAILY 03/28/24 07/23/24 tablet) insulin glargine 100 unit/mL (3 35 unit SUBCUT BID 05/17/24 07/23/24 mL) subcutaneous pen (Lantus Solostar U-100 Insulin) lisinopril 20 mg tablet 20 mg PO DAILY 05/17/24 07/23/24 potassium chloride 10 mEq 10 meq PO BID 06/10/24 07/23/24 tablet,extended release albuterol sulfate 90 mcg/actuation 2 puff inhalation .Q4-6H 07/23/24 07/23/24 aerosol inhaler clopidogrel 75 mg tablet 75 mg PO DAILY 07/23/24 07/23/24 escitalopram oxalate 10 mg tablet 10 mg PO QPM 07/23/24 07/23/24 prednisone 20 mg tablet 40 mg PO DAILY 07/23/24 07/23/24 ursodiol 300 mg capsule 1,500 mg PO DAILY 07/23/24 07/23/24 Previous Rx's ?Medication ?Instructions ?Recorded carvedilol 12.5 mg tablet 12.5 mg PO BID #180 tabs 03/28/24 hydralazine 25 mg tablet 25 mg PO BID #180 tabs 03/28/24 rosuvastatin 40 mg tablet 40 mg PO DAILY #30 tabs 05/18/24 rivaroxaban 20 mg tablet (Xarelto) See Rx Instructions .Route 07/18/24 .COMPLEX #30 tabs Allergies Allergy/AdvReac Type Severity Reaction Status Date / Time lovastatin Allergy RASH Verified 05/17/24 11:31
[2024-07-23] MEDS: sodium chloride 0.9% 1,000 ML 999 ML IV ×2 (13:32→14:03)
[2024-07-23 13:36] LABS: Basophils % 0.4 %; Eosinophils # 0.2 10^3/uL (0.0-0.8); Eosinophils % 1.6 %; Hematocrit 45.7 % (37-53); Lymphocytes # 1.4 10^3/uL (0.8-4.8); Lymphocytes % 13.9 %; Mean Corpuscular HGB Conc 33.3 g/dL (30-55); Mean Corpuscular Hemoglobin 30.3 pg (27-33); Mean Corpuscular Volume 91.2 fl (82-101); Mean Platelet Volume 10.3 fL (7.4-10.4); Monocytes # 1.1 10^3/uL (0.2-0.9); Monocytes % 11.1 %; Neutrophils # 7.47 10^3/uL (1.8-7.7); Neutrophils % 72.4 %; Nucleated Red Blood Cells % 0 %; Platelet Count 370 10^3/cmm (157-399); Red Blood Count 5.01 10^6/uL (3.85-5.65); Red Cell Distribution Width 14.5 % (12.1-15.1); White Blood Count 10.31 10^3/uL (3.29-11.43)
[2024-07-23 13:40] LABS: INR 1.22 (0.8-1.2)
[2024-07-23 13:49] LABS: Alanine Aminotransferase 19 U/L (0-41); Albumin Level 3.6 g/dL (3.5-5.2); Alkaline Phosphatase 104 U/L (40-130); Blood Urea Nitrogen 26 mg/dL (8-23); Calcium 9.3 mg/dL (8.5-10.5); Carbon Dioxide 23 mmol/L (22-29); Chloride 93 mmol/L (98-107); Creatinine Clr Calc Pharmacy 49.7841; Globulin 3.5 g/dL (1.3-4.6); Glucose 188 mg/dL (65-115); Osmolality Calculated 282 mOsm/kg (285-295); Sodium 131 mmol/L (136-145); Total Bilirubin 0.7 mg/dL (0.15-1.2); Total Protein 7.1 g/dL (6.6-8.7)
--- NOTE | 2024-07-23 13:55 | CTR_ITS ---
PROCEDURE INFORMATION: Exam: CT Head Without Contrast Exam date and time: 07/23/2024 2:21 PM Age: 79 years old Clinical indication: Alteration of consciousness; Syncope and collapse; Follow up pneumothorax; Post RT thoravent removal; Carney present to anterior RT chest wound TECHNIQUE: Imaging protocol: Computed tomography of the head without contrast. Radiation optimization: All CT scans at this facility use at least one of these dose optimization techniques: automated exposure control; mA and/or kV adjustment per patient size (includes targeted exams where dose is matched to clinical indication); or iterative reconstruction. COMPARISON: CT angio headneck* [id number] 06/10/2024 11:57 AM RADIATION DOSE METRICS: Total DLP (mGy-cm): 1198.78 FINDINGS: Brain: No midline shift or acute intracranial finding. Cortical atrophy is present. Periventricular hypodensities are nonspecific and likely representing severe small vessel ischemic changes. Chronic right occipital lobe infarct. Cerebral ventricles: No ventriculomegaly. Paranasal sinuses: Visualized sinuses are unremarkable. No fluid levels. Mastoid air cells: Visualized mastoid air cells are well aerated. Bones: Unremarkable. No acute fracture. Soft tissues: Unremarkable. Vasculature: Calcified atherosclerotic changes are seen in the left intracranial vertebral artery and bilateral internal carotid artery cavernous segment. CT/CT head wo con* [id number] IMPRESSION: 1. No acute intracranial finding. 2. Chronic right occipital lobe infarct. 3. Calcified atherosclerotic changes are seen in the left intracranial vertebral artery and bilateral internal carotid artery cavernous segment. 4. Cortical atrophy is present. 5. Likely severe small-vessel ischemic changes.
[2024-07-23 13:58] LABS: Anion Gap 19.1 (5-19); Aspartate Amino Transferase 23 U/L (0-40); Potassium 4.1 mmol/L (3.5-5.1)
[2024-07-23] MEDS: morphine 4 mg/mL SDV 1 mL IVP (14:03)
[2024-07-23] MEDS: ondansetron 2 mg/ML SDV 2 mL 4 MG IVP (14:03)
--- NOTE | 2024-07-23 14:28 | CTR_ITS ---
PROCEDURE INFORMATION: Exam: CT Abdomen And Pelvis With Contrast Exam date and time: 07/23/2024 2:29 PM Age: 79 years old Clinical indication: Injury or trauma; Fall; Blunt and fracture, traumatic; Generalized TECHNIQUE: Imaging protocol: Computed tomography of the abdomen and pelvis with contrast. Radiation optimization: All CT scans at this facility use at least one of these dose optimization techniques: automated exposure control; mA and/or kV adjustment per patient size (includes targeted exams where dose is matched to clinical indication); or iterative reconstruction. Contrast material: OMNIPAQUE 350; Contrast volume: 100 ml; Contrast route: INTRAVENOUS (IV); COMPARISON: CT abdomen pelvis w con* [id number] 05/17/2024 1:01 PM RADIATION DOSE METRICS: Total DLP (mGy-cm): 1228.74 FINDINGS: Lungs: There is subsegmental atelectasis in the lung bases. Diaphragm: There is a small sliding-type hiatal hernia. Liver: The liver is normal. Gallbladder and biliary ducts: The gallbladder is absent. There is no intrahepatic or extrahepatic bile duct dilation. Pancreas: There is moderate atrophy of the pancreas. Spleen: Splenic size is normal. There are scattered calcifications consistent with healed granulomas. Adrenal glands: The adrenal glands are unremarkable. Kidneys and ureters: The kidneys are unremarkable. No hydronephrosis or stones. No ureteral dilation. Stomach and bowel: The stomach is nondistended, limiting assessment of wall thickness. The small bowel is nondilated. The colon is unremarkable. Appendix: The appendix is normal. Intraperitoneal space: There is no free air or significant intraperitoneal free fluid. 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 There is severe aortic atherosclerotic disease. The portal, splenic and superior mesenteric veins are patent. Lymph nodes: There is no lymphadenopathy in the retroperitoneum, mesentery, pelvis or inguinal regions. Urinary bladder: The urinary bladder is unremarkable. Reproductive: The prostate and seminal vesicles are unremarkable. Bones/joints: There is moderate degenerative disease in the lumbar spine. There is a comminuted displaced intertrochanteric fracture of the right femur with mild varus angulation at the fracture site. Femoroacetabular alignment is normal bilaterally. The left proximal femur is intact. No acute pelvic fracture. There are multiple healed left posterior lower rib fractures. Soft tissues: The abdominal wall is intact. Small volume intermuscular and inter fascial bleeding associated with the right hip fracture. No sign of active bleeding and no large hematoma. CT/CT abdomen pelvis w con* [id number] IMPRESSION: 1. Comminuted displaced right intertrochanteric femoral fracture. 2. No sign of significant intra-abdominal injury. 3. Incidental findings above.
[2024-07-23] MEDS: iohexol 350 mg/mL 500 mL Btl (per mL) IV (14:37)
--- NOTE | 2024-07-23 14:57 | PC.NURSE ---
Dr. Vasquez used a doppler and found posterior tibial pulses bilaterally on the patient.
[2024-07-23] MEDS: LORazepam 1 MG/0.5 ML injection 0.5 MG IVP (15:07)
--- NOTE | 2024-07-23 15:56 | PC.NURSE ---
REPORT GIVEN TO MARCIO SMITH ON [facility] [employer] [facility]; NO FURTHER QUESTIONS.
--- NOTE | 2024-07-23 17:21 | PM.HP ---
Providers/Chief Complaint Admitting Physician: Marei Barney MD Primary Care Provider: Humberto Griggs DO Chief Complaint: right hip pain s/p fall History of Present Illness Andrés Dumont is a 79 year old male With a past medical history of hypertension, diabetes mellitus, A-fib chronically on Xarelto recent stroke on 06/10/24 who was found to have a right symptomatic carotid artery stenosis following which he was transferred to [facility] In [place]. There he underwent right carotid stenting following which he has been maintained on Plavix and Xarelto. HE presents today after having sustained a fall at home while attempting to walk outside with his walker. He has not had the walker very longer. He is uncertain if this was a mechanical fall or if he was dizzy, but thinks it was most likely the latter. Yesterday he had been asked by his PCP to skip taking hydralazine, however this morning his BP was up to 170 systolic, therefore he took a dose of hydralazine. On ER arrival he was hypotensive with SBP 80s, which improved with fluid bolus. Denies any chest pain, dyspnea, palpitations or syncope. No focal neuro deficits noted today post the fall. He has been found to have a right communited displaced intertrochanteric fracture. ROS + for poor appetite, dysphagia over the past few weeks. States he was planned to undergo an UGIE at [facility] however this was deferred as he was on Xarelto and Plavix. Dee ppears he had some relief with swallow thereapy, chin tuck etc. He has not had much appetite and has been eating mostly kinyarwanda yogurt and fluids. Review of Systems General: Reports: 10 or more systems reviewed and unremarkable except in HPI and below Const: Denies: fever(s), chills or body aches Eyes: Denies: change in vision, blurry vision or photophobia ENMT: Reports: hoarseness; Denies: throat pain, enlarged tonsils, odynophagia or nasal congestion Card: Denies: chest pain, palpitations, irregular heart rhythm, edema, swelling of feet/ankles, lightheadedness, pre-syncope, dyspnea on exertion or orthopnea Resp: Denies: dyspnea, productive cough, non-productive cough, wheezing, stridor, pain on inspiration, change in phlegm color, hemoptysis or chest congestion GI: Denies: abdominal pain, nausea, vomiting, hematemesis, coffee ground emesis, dysphagia, heartburn, diarrhea, constipation, GI cramping, change in stool character, hematochezia or melena : Denies: flank pain, dysuria, urinary frequency, urinary urgency, urinary hesitancy or hematuria Musc: Denies: neck pain, back pain, extremity pain, joint swelling, joint warmth or deformity Neuro: Denies: headache(s), numbness in extremities, weakness in extremities, sensory changes, difficulty walking, frequent falls, dizziness, vertigo, behavioral changes, Slurred speech present or seizure-like activity Psych: Denies: anxiety, depression, suicidal ideation or homicidal ideation Endo: Denies: polyuria, polydipsia, tired all the time, cold intolerance or hot flashes Oc/Lymph: Denies: easy bruising or easy bleeding Medications/Allergies Home Medications ?Medication ?Instructions ?Recorded ?Confirmed ?Last Taken ?Type pantoprazole 40 mg tablet,delayed 40 mg PO BID 11/19/20 07/23/24 06/09/24 History release fluticasone propionate 50 2 spray intranasal DAILY PRN Nasal 09/18/21 07/23/24 06/09/24 History mcg/actuation nasal Congestion spray,suspension glipizide 10 mg tablet, extended 10 mg PO DAILY 09/18/21 07/23/24 06/10/24 History release 24 hr triamterene 75 1 tab PO DAILY 12/18/21 07/23/24 06/09/24 History mg-hydrochlorothiazide 50 mg tablet furosemide 20 mg tablet (Lasix) 20 mg PO DAILY PRN Edema 11/16/23 07/23/24 06/10/24 History carvedilol 12.5 mg tablet 12.5 mg PO BID #180 tabs 03/28/24 07/23/24 06/10/24 Rx hydralazine 25 mg tablet 25 mg PO BID #180 tabs 03/28/24 07/23/24 05/17/24 Rx multivitamin (Multiple Vitamins 1 tab PO DAILY 03/28/24 07/23/24 06/09/24 History tablet) insulin glargine 100 unit/mL (3 35 unit SUBCUT BID 05/17/24 07/23/24 06/09/24 History mL) subcutaneous pen (Lantus Solostar U-100 Insulin) lisinopril 20 mg tablet 20 mg PO DAILY 05/17/24 07/23/24 06/10/24 History rosuvastatin 40 mg tablet 40 mg PO DAILY #30 tabs 05/18/24 07/23/24 06/10/24 Rx potassium chloride 10 mEq 10 meq PO BID 06/10/24 07/23/24 06/10/24 History tablet,extended release rivaroxaban 20 mg tablet (Xarelto) See Rx Instructions .Route 07/18/24 07/23/24 Unknown Rx .COMPLEX #30 tabs albuterol sulfate 90 mcg/actuation 2 puff inhalation .Q4-6H 07/23/24 07/23/24 Unknown History aerosol inhaler clopidogrel 75 mg tablet 75 mg PO DAILY 07/23/24 07/23/24 Unknown History escitalopram oxalate 10 mg tablet 10 mg PO QPM 07/23/24 07/23/24 Unknown History prednisone 20 mg tablet 40 mg PO DAILY 07/23/24 07/23/24 Unknown History ursodiol 300 mg capsule 1,500 mg PO DAILY 07/23/24 07/23/24 Unknown History Allergies Allergy/AdvReac Type Severity Reaction Status Date / Time lovastatin Allergy RASH Verified 05/17/24 11:31 blood Allergy Unknown Trisha's Uncoded 07/23/24 20:01 witness PFSH Acute PFSH: Medical History Hypertension Anticoagulation adequate with anticoagulant therapy Atrial fibrillation with controlled ventricular rate BPH (benign prostatic hyperplasia) Mass of right kidney Diabetes mellitus Acute cholecystitis Callus of foot Chronic ulcer of great toe of right foot, limited to breakdown of skin Hammertoe Peripheral arterial disease Diabetic peripheral neuropathy associated with type 2 diabetes mellitus Diabetes mellitus GERD (gastroesophageal reflux disease) Venous insufficiency Prostatitis, acute Acute cystitis with hematuria Surgical History Hx of cholecystectomy Status post right inguinal hernia repair Status post colonoscopy (12/13/20) descending colon polyp H/O esophagogastroduodenoscopy (12/13/20) normal Hx of tonsillectomy Family History Mother , AT AGE 73 Cancer COLON Father , AT AGE 50 Diabetes Social History Smoking and tobacco/nicotine status: former use of tobacco/nicotine Alcohol intake: current Alcohol intake frequency: holidays/special occasions only Marital status: Current occupational status: retired Vitals/I&O/Wt Last Vital Signs Temp 98.1 F 07/23/24 13:15 Pulse 97 07/23/24 15:59 Resp 19 H 07/23/24 15:20 BP 117/68 07/23/24 15:59 Pulse Ox 98 07/23/24 15:59 O2 Del Method Room Air 07/23/24 15:20 07/23/24 07/23/24 07/23/24 06:59 14:59 22:59 Intake Total 1999 Balance 1999 Weight last 48 hrs Weight 107.955 kg Physical Exam Narrative: General: No acute distress, AO x3 HEENT: PERRLA, pupils bilaterally equal and reactive, pallors not present Chest: Normal vesicular breath sounds, no added sounds, equal good air entry bilaterally CVS: S1-S2 regular, no murmurs, no tachycardia, no gallops, no rubs Abdomen: Soft, nontender, no organomegaly, bowel sounds present Neuro: No focal deficits, no facial deformity, AO x3, power 5/5 in all limbs Ext: Right LE shortened and extrenally rotated Urinary Catheter Management: Huber: Cath Placed During This Visit: yes Urinary Catheter Date of Insertion: 07/23/24 Data 07/23/24 12:55 07/23/24 12:55 Other data: Radiology Impressions Chest X-Ray 07/23/24 13:19 IMPRESSION: No acute findings. Hip/Pelvis X-Ray 07/23/24 13:19 IMPRESSION: Comminuted displaced intertrochanteric fracture of the right femur. Head CT 07/23/24 13:55 IMPRESSION: 1. No acute intracranial finding. 2. Chronic right occipital lobe infarct. 3. Calcified atherosclerotic changes are seen in the left intracranial vertebral artery and bilateral internal carotid artery cavernous segment. 4. Cortical atrophy is present. 5. Likely severe small-vessel ischemic changes. Abdomen/Pelvis CT 07/23/24 14:28 IMPRESSION: 1. Comminuted displaced right intertrochanteric femoral fracture. 2. No sign of significant intra-abdominal injury. 3. Incidental findings above. Laboratory Results WBC 10.31 10^3/uL (3.29-11.43) 07/23/24 12:55 RBC 5.01 10^6/uL (3.85-5.65) 07/23/24 12:55 Hgb 15.20 g/dL (11.27-16.99) 07/23/24 12:55 Hct 45.7 % (37-53) 07/23/24 12:55 MCV 91.2 fl (82-101) 07/23/24 12:55 MCH 30.3 pg (27-33) 07/23/24 12:55 MCHC 33.3 g/dL (30-55) 07/23/24 12:55 RDW 14.5 % (12.1-15.1) 07/23/24 12:55 Plt Count 370 10^3/cmm (157-399) 07/23/24 12:55 MPV 10.3 fL (7.4-10.4) 07/23/24 12:55 Neut % (Auto) 72.4 % 07/23/24 12:55 Lymph % (Auto) 13.9 % 07/23/24 12:55 [place] % (Auto) 11.1 % 07/23/24 12:55 Eos % (Auto) 1.6 % 07/23/24 12:55 Baso % (Auto) 0.4 % 07/23/24 12:55 Neut # (Auto) 7.47 10^3/uL (1.8-7.7) 07/23/24 12:55 Lymph # (Auto) 1.4 10^3/uL (0.8-4.8) 07/23/24 12:55 [place] # (Auto) 1.1 10^3/uL (0.2-0.9) H 07/23/24 12:55 Eos # (Auto) 0.2 10^3/uL (0.0-0.8) 07/23/24 12:55 Baso # (Auto) 0.0 10^3/uL (0.0-0.1) 07/23/24 12:55 Nucleated RBC % (auto) 0 % 07/23/24 12:55 Nucleated RBCs # 0.0 /100WBC 07/23/24 12:55 PT 16.20 SECONDS (12.1-14.9) H 07/23/24 12:55 INR 1.22 (0.8-1.2) H 07/23/24 12:55 Sodium 131 mmol/L (136-145) L 07/23/24 12:55 Potassium 4.1 mmol/L (3.5-5.1) 07/23/24 12:55 Chloride 93 mmol/L (98-107) L 07/23/24 12:55 Carbon Dioxide 23 mmol/L (22-29) 07/23/24 12:55 Anion Gap 19.1 (5-19) H 07/23/24 12:55 BUN 26 mg/dL (8-23) H 07/23/24 12:55 Creatinine 1.6 mg/dL (0.7-1.2) H 07/23/24 12:55 GFR Calculation Not Reportable 07/23/24 12:55 Glucose 188 mg/dL (65-115) H 07/23/24 12:55 POC Glucose 144 mg/dL (70-110) H 07/23/24 18:17 Calculated Osmolality 282 mOsm/kg (285-295) L 07/23/24 12:55 Calcium 9.3 mg/dL (8.5-10.5) 07/23/24 12:55 Total Bilirubin 0.7 mg/dL (0.15-1.2) 07/23/24 12:55 AST 23 U/L (0-40) 07/23/24 12:55 ALT 19 U/L (0-41) 07/23/24 12:55 Alkaline Phosphatase 104 U/L (40-130) 07/23/24 12:55 Total Protein 7.1 g/dL (6.6-8.7) 07/23/24 12:55 Albumin 3.6 g/dL (3.5-5.2) 07/23/24 12:55 Globulin 3.5 g/dL (1.3-4.6) 07/23/24 12:55 A&P Assessment and plan (1) Intertrochanteric fracture: Presenting with fall and intertrochanteric fracture today. activity/limb immbolization instructions per ortho service Planned for OR intervention, therefore holding Xarelto and Plavix. Recommended per ortho to be off Plavix for 5 days before ORIF. Prn morphine, Oxy/APAP for pain control Patient is [employer], does not accept blood products (2) Carotid artery stenosis with cerebral infarction: h/o recent symptomatic carotid artery stenosis with CVA s/p Right carotid stenting at [facility] in later may 2024. Discussed case with vascular surgery inhalation therapy teacher recommended to maintain anticogulation with Heparin gtt and antiplatelet coverage with Asa 81mg daily while Plavix and Xarelto remain on hold to minimize risk of CVA monitor serial Hb and platelet count high risk of CVA discussed with patient (3) Hypotension: hypotension ? suspect polypharmacy Hold antihypertensives for now prn hydralazine 10mg every 4 hrs if needed for SBP > 160 based on BP trend will resume home BP meds (4) Atrial fibrillation with controlled ventricular rate: continue carvedilol Hold xarelto a/c with heparin gtt to be stopped 4 hrs pre procedure recent echo from 04/2024 with EF 55-60% and mild pulm HTN. (5) Dysphagia: symptomatic several weeks planned for EGD outpatient recently but deferred in view of being on a/c protonix 40mg po BID for now Hb stable at 15 currently , monitor for any worsening of symptoms Plan DVT ppx: heparin gtt will suffice Full code PDMP PDMP Reviewed: Not Reviewed Attestations Medical Necessity Statement*: > 2midnight stay is anticipated for management as above Coding Level of Care Code Acute Code for Chg Fwd Diagnoses Intertrochanteric fracture S72.143A Carotid artery stenosis with cerebral infarction I63.239 Hypotension I95.9 Atrial fibrillation with controlled ventricular rate I48.91 Dysphagia R13.10
[2024-07-23] MEDS: sodium chloride 0.9% 1,000 ML 50 ML IV (18:04)
[2024-07-23] MEDS: morphine 4 mg/mL SDV 1 mL 2 MG IVP (18:04)
[2024-07-23] MEDS: carvedilol 12.5 mg Tablet PO (18:08)
[2024-07-23] MEDS: pantoprazole DR 40 mg Tablet PO (18:08)
[2024-07-23] MEDS: escitalopram 10 mg Tablet PO (18:08)
[2024-07-23 18:20] LABS: Glucose Point of Care 144 mg/dL (70-110)
[2024-07-23] MEDS: insulin lispro 100 unit/1 mL SUBCUT (18:25)
[2024-07-23] MEDS: heparin drip 25,000 UNIT/500 ML PREMIX 31 UNIT IV (20:39)
[2024-07-23] MEDS: heparin 5,000 unit/mL INJ 1 mL IVP (20:40)
[2024-07-23 20:48] LABS: Glucose Point of Care 138 mg/dL (70-110)
[2024-07-24] VITALS (13 sets, daily range): BP systolic 97–137; BP diastolic 56–75; PULSE 50–84; RESP 16–18; TEMP 36.4–36.6; O2SAT 95–99
[2024-07-24 02:59] LABS: Basophils % 0.3 %; Eosinophils # 0.1 10^3/uL (0.0-0.8); Eosinophils % 0.6 %; Hematocrit 36.9 % (37-53); Lymphocytes # 1.4 10^3/uL (0.8-4.8); Lymphocytes % 14.7 %; Mean Corpuscular HGB Conc 32.8 g/dL (30-55); Mean Corpuscular Hemoglobin 31.8 pg (27-33); Mean Corpuscular Volume 96.9 fl (82-101); Monocytes # 1.7 10^3/uL (0.2-0.9); Monocytes % 17.2 %; Neutrophils # 6.55 10^3/uL (1.8-7.7); Neutrophils % 66.7 %; Nucleated Red Blood Cells % 0 %; Platelet Count 265 10^3/cmm (157-399); Red Blood Count 3.81 10^6/uL (3.85-5.65); Red Cell Distribution Width 14.7 % (12.1-15.1); White Blood Count 9.82 10^3/uL (3.29-11.43)
[2024-07-24 03:22] LABS: Alanine Aminotransferase 15 U/L (0-41); Albumin Level 2.9 g/dL (3.5-5.2); Alkaline Phosphatase 80 U/L (40-130); Aspartate Amino Transferase 16 U/L (0-40); Blood Urea Nitrogen 31 mg/dL (8-23); Calcium 8.1 mg/dL (8.5-10.5); Carbon Dioxide 26 mmol/L (22-29); Chloride 100 mmol/L (98-107); Creatinine Clr Calc Pharmacy 36.1711; Globulin 2.6 g/dL (1.3-4.6); Glucose 124 mg/dL (65-115); Osmolality Calculated 288 mOsm/kg (285-295); Sodium 135 mmol/L (136-145); Total Bilirubin 0.7 mg/dL (0.15-1.2); Total Protein 5.5 g/dL (6.6-8.7)
[2024-07-24 03:27] LABS: Partial Thromboplastin Time > 250.0 SECONDS (23.9-36.7)
[2024-07-24 06:46] LABS: Glucose Point of Care 97 mg/dL (70-110)
[2024-07-24] MEDS: pantoprazole DR 40 mg Tablet PO ×2 (07:55→17:41)
[2024-07-24] MEDS: atorvastatin 40 mg Tablet 80 MG PO (07:55)
[2024-07-24] MEDS: carvedilol 12.5 mg Tablet PO ×2 (07:55→17:41)
[2024-07-24] MEDS: aspirin 81 mg EC Tablet PO (07:56)
[2024-07-24 08:18] LABS: Partial Thromboplastin Time 53.6 SECONDS (23.9-36.7)
--- NOTE | 2024-07-24 09:14 | PC.NURSE ---
PTT was 53.6, per T.O. Dr. Barney start heparin drip at half original rate. Original rate 31, restarted heparin drip at 16, confirmed with YULY Peterson RN.
--- NOTE | 2024-07-24 10:30 | PM.CONSULT ---
Providers/Reason For Consult Consulting Physician/Specialty*: Ross Hall MD Orthopedic surgery Reason for Consult*: Fracture left hip Attending Physician: Marie Barney MD Primary Care Provider: Humberto Griggs DO History of Present Illness History of Present Illness Andrés Dumont is a 79 year old male Review of Systems General: Reports: 10 or more systems reviewed and unremarkable except in HPI and below Const: Denies: fever(s), chills, body aches or change in appetite Eyes: Denies: change in vision, blurry vision or photophobia ENMT: Reports: hoarseness; Denies: throat pain, enlarged tonsils, odynophagia, dental pain or nasal congestion Card: Reports: syncope; Denies: chest pain, palpitations, irregular heart rhythm, edema, swelling of feet/ankles, lightheadedness, pre-syncope, dyspnea on exertion or orthopnea Resp: Denies: dyspnea, productive cough, non-productive cough, wheezing, stridor, pain on inspiration, change in phlegm color, hemoptysis or chest congestion GI: Denies: abdominal pain, nausea, vomiting, hematemesis, coffee ground emesis, dysphagia, heartburn, diarrhea, constipation, GI cramping, change in stool character, hematochezia or melena : Denies: flank pain, dysuria, urinary frequency, urinary urgency, urinary hesitancy or hematuria Musc: Denies: neck pain, back pain, extremity pain, joint swelling, joint warmth or deformity Skin/Breast: Denies: rash Neuro: Denies: headache(s), numbness in extremities, weakness in extremities, sensory changes, difficulty walking, frequent falls, dizziness, vertigo, behavioral changes, Slurred speech present or seizure-like activity Psych: Denies: anxiety, depression, suicidal ideation or homicidal ideation Endo: Denies: polyuria, polydipsia, tired all the time, cold intolerance or hot flashes Oc/Lymph: Denies: easy bruising or easy bleeding All/Imm: Denies: acute wheezing Medications/Allergies Home Medications ?Medication ?Instructions ?Recorded ?Confirmed ?Last Taken ?Type pantoprazole 40 mg tablet,delayed 40 mg PO BID 11/19/20 07/23/24 06/09/24 History release fluticasone propionate 50 2 spray intranasal DAILY PRN Nasal 09/18/21 07/23/24 06/09/24 History mcg/actuation nasal Congestion spray,suspension glipizide 10 mg tablet, extended 10 mg PO DAILY 09/18/21 07/23/24 06/10/24 History release 24 hr triamterene 75 1 tab PO DAILY 12/18/21 07/23/24 06/09/24 History mg-hydrochlorothiazide 50 mg tablet furosemide 20 mg tablet (Lasix) 20 mg PO DAILY PRN Edema 11/16/23 07/23/24 06/10/24 History carvedilol 12.5 mg tablet 12.5 mg PO BID #180 tabs 03/28/24 07/23/24 06/10/24 Rx hydralazine 25 mg tablet 25 mg PO BID #180 tabs 03/28/24 07/23/24 05/17/24 Rx multivitamin (Multiple Vitamins 1 tab PO DAILY 03/28/24 07/23/24 06/09/24 History tablet) insulin glargine 100 unit/mL (3 35 unit SUBCUT BID 05/17/24 07/23/24 06/09/24 History mL) subcutaneous pen (Lantus Solostar U-100 Insulin) lisinopril 20 mg tablet 20 mg PO DAILY 05/17/24 07/23/24 06/10/24 History rosuvastatin 40 mg tablet 40 mg PO DAILY #30 tabs 05/18/24 07/23/24 06/10/24 Rx potassium chloride 10 mEq 10 meq PO BID 06/10/24 07/23/24 06/10/24 History tablet,extended release rivaroxaban 20 mg tablet (Xarelto) See Rx Instructions .Route 07/18/24 07/23/24 Unknown Rx .COMPLEX #30 tabs albuterol sulfate 90 mcg/actuation 2 puff inhalation .Q4-6H 07/23/24 07/23/24 Unknown History aerosol inhaler clopidogrel 75 mg tablet 75 mg PO DAILY 07/23/24 07/23/24 Unknown History escitalopram oxalate 10 mg tablet 10 mg PO QPM 07/23/24 07/23/24 Unknown History prednisone 20 mg tablet 40 mg PO DAILY 07/23/24 07/23/24 Unknown History ursodiol 300 mg capsule 1,500 mg PO DAILY 07/23/24 07/23/24 Unknown History Allergies Allergy/AdvReac Type Severity Reaction Status Date / Time lovastatin Allergy RASH Verified 05/17/24 11:31 blood Allergy Unknown Jayde Uncoded 07/23/24 20:01 witness Current Medications Generic Name Dose Route Start Last Admin Trade Name Freq PRN Reason Stop Dose Admin Aspirin 81 mg 07/24/24 09:00 07/24/24 07:56 Aspirin 81 Mg Ec Tablet PO 81 mg DAILY SAHIL Administration Atorvastatin Calcium 80 mg 07/24/24 09:00 07/24/24 07:55 Atorvastatin 40 Mg Tablet PO 80 mg DAILY SAHIL Administration Carvedilol 12.5 mg 07/23/24 18:00 07/24/24 07:55 Carvedilol 12.5 Mg Tablet PO 12.5 mg BID SAHIL Administration Escitalopram Oxalate 10 mg 07/23/24 18:00 07/23/24 18:08 Escitalopram 10 Mg Tablet PO 10 mg QPM SAHIL Administration Sodium Chloride 1,000 mls @ 75 mls/hr 07/23/24 17:15 07/24/24 00:00 Sodium Chloride 0.9% IV 50 mls/hr .[id number] SAHIL Infusion Heparin Sodium/Sodium Chloride 25,000 unit in 500 mls @ 0 mls/hr 07/23/24 19:45 07/24/24 09:10 Heparin Drip IV 7.41 unit/kg/hr CONT SAHIL 16 mls/hr Protocol Titration Per Protocol Insulin Human Lispro 0 unit 07/23/24 18:00 07/24/24 07:11 Insulin Lispro 100 Unit/1 Ml SUBCUT Not Given WM&BEDTIME [facility] Protocol Morphine Sulfate 2 mg 07/23/24 17:06 07/23/24 18:04 Morphine 4 Mg/Ml Sdv 1 Ml IVP 2 mg Q4H PRN Administration SEVERE PAIN Pantoprazole Sodium 40 mg 07/23/24 18:00 07/24/24 07:[address] 40 Mg Tablet PO 40 mg BID SAHIL Administration PFSH Acute PFSH: Medical History Hypertension Anticoagulation adequate with anticoagulant therapy Atrial fibrillation with controlled ventricular rate BPH (benign prostatic hyperplasia) Mass of right kidney Diabetes mellitus Acute cholecystitis Callus of foot Chronic ulcer of great toe of right foot, limited to breakdown of skin Hamm[place]oe Peripheral arterial disease Diabetic peripheral neuropathy associated with type 2 diabetes mellitus Diabetes mellitus GERD (gastroesophageal reflux disease) Venous insufficiency Prostatitis, acute Acute cystitis with hematuria Surgical History Hx of cholecystectomy Status post right inguinal hernia repair Status post colonoscopy (12/13/20) descending colon polyp H/O esophagogastroduodenoscopy (12/13/20) normal Hx of tonsillectomy Family History Mother , AT AGE 73 Cancer COLON Father , AT AGE 50 Diabetes Social History Smoking and tobacco/nicotine status: former use of tobacco/nicotine Alcohol intake: current Alcohol intake frequency: holidays/special occasions only Marital status: Current occupational status: retired Dietary Habits: Current diet type/program: regular Caffeine: Yes Vitals/I&O/Wt Last Vital Signs Temp 97.8 F 07/24/24 08:00 Pulse 73 07/24/24 08:00 Resp 18 07/24/24 08:00 BP 134/75 07/24/24 08:00 Pulse Ox 97 07/24/24 08:00 O2 Del Method Room Air 07/24/24 08:00 07/23/24 07/24/24 07/24/24 22:59 06:59 14:59 Intake Total 130 / 2130 212.35 / 2342.35 120 / 120 Output Total 375 / 375 Balance 130 / 2130 -162.65 / 1967.35 120 / 120 Weight last 48 hrs Weight 252 lb 9.6 oz Weight 237 lb 8 oz Weight 238 lb Physical Exam Narrative: Orthopedic exam today. Patient is laying in bed in the supine position. Left leg is externally rotated slightly shortened. Neurovascular intact distally. Urinary Catheter Management: Huber: Cath Placed During This Visit: yes Reason for Continuing Indwelling Catheter: Required Immobilization for Trauma or Surgery or Anesthesia Urinary Catheter Date of Insertion: 07/23/24 Data 07/24/24 02:46 07/24/24 02:46 Other data: X-rays were reviewed demonstrating a comminuted intertrochanteric hip fracture on the left. A&P Assessment and plan (1) Intertrochanteric fracture: Patient has intertrochanteric hip fracture on the left. This is comminuted and leg is shortened. Plan Plan at this time is I have offered them a open reduction internal fixation of the left hip fracture. However the patient has recently had a stroke and has been on Xarelto as well as Plavix secondary to a stent placed in his carotid artery. Due to this he will have to wait 5 days for the Plavix to clear to in order for it to be safe for surgical intervention. Hospitalist has spoken with his vascular surgeon and they have made recommendations for prophylactics until surgery time that being heparin drip as well as a baby aspirin daily. Patient and informed they are [employer] and do not want any blood products. I have reassured them that this is somewhat minimally invasive surgery and therefore I do not plan on needing any blood transfusions. I have pointed out that more likely has bled into his leg and his blood counts will be down. Hopefully over the next 5 days this will not diminish anymore. Tentatively planning on surgery for of this week. PDMP PDMP Reviewed: Not Reviewed Consult Attestations Medical Necessity Statement: Patient in need of surgical intervention for left hip fracture. Must wait for Plavix to clear for 5 days. He also needs help with pain control and ADLs Coding Level of Care Code Acute Code for Chg Fwd Diagnoses Closed displaced intertrochanteric fracture of left femur, initial encounter S72.142A Encounter type: initial encounter Fracture type: closed Laterality: left Fracture alignment: displaced
[2024-07-24] MEDS: oxyCODONE-APAP 5-325 mg Tablet 1 TAB PO ×2 (10:43→17:47)
[2024-07-24] MEDS: URSODIOL 300 MG 600 EACH PO (11:08)
[2024-07-24 11:48] LABS: Glucose Point of Care 115 mg/dL (70-110)
[2024-07-24] MEDS: morphine 4 mg/mL SDV 1 mL 2 MG IVP (14:47)
--- NOTE | 2024-07-24 14:52 | PM.PN ---
Subjective Subjective: Patient states pain is currently well-controlled. Creatinine noted to be trending up to 2.2 today. Urine output is only at 370 cc. Medications: Reviewed: Yes Vitals/I&O/Wt Last Vital Signs Temp 97.7 F 07/24/24 11:21 Pulse 76 07/24/24 14:00 Resp 16 07/24/24 14:47 BP 115/62 07/24/24 11:21 Pulse Ox 98 07/24/24 11:21 O2 Del Method Room Air 07/24/24 11:21 07/23/24 07/24/24 07/24/24 22:59 06:59 14:59 Intake Total 130 / 2130 212.35 / 2342.35 673.333 / 673.333 Output Total 375 / 375 Balance 130 / 2130 -162.65 / 1967.35 673.333 / 673.333 Weight last 48 hrs Weight 114.577 kg Weight 107.728 kg Weight 107.955 kg Physical Exam Narrative: General: No acute distress, AO x3 HEENT: PERRLA, pupils bilaterally equal and reactive, pallors not present Chest: Normal vesicular breath sounds, no added sounds, equal good air entry bilaterally CVS: S1-S2 regular, no murmurs, no tachycardia, no gallops, no rubs Abdomen: Soft, nontender, no organomegaly, bowel sounds present Neuro: No focal deficits, no facial deformity, AO x3, power 5/5 in all limbs Ext: Right LE shortened and extrenally rotated Urinary Catheter Management: Huber: Cath Placed During This Visit: yes Reason for Continuing Indwelling Catheter: Required Immobilization for Trauma or Surgery or Anesthesia Urinary Catheter Date of Insertion: 07/23/24 Data 07/24/24 02:46 07/24/24 02:46 A&P Assessment and plan (1) Intertrochanteric fracture: Presenting with fall and intertrochanteric fracture today. activity/limb immbolization instructions per ortho service Planned for OR intervention, therefore holding Xarelto and Plavix. Recommended per ortho to be off Plavix for 5 days before ORIF. Prn morphine, Oxy/APAP for pain control Patient is Yarsanism, does not accept blood products (2) Carotid artery stenosis with cerebral infarction: h/o recent symptomatic carotid artery stenosis with CVA s/p Right carotid stenting at [facility] in later may 2024. Discussed case with vascular surgery telephonic case manager at [facility] recommended to maintain anticogulation with Heparin gtt and antiplatelet coverage with Asa 81mg daily while Plavix and Xarelto remain on hold to minimize risk of CVA monitor serial Hb and platelet count high risk of CVA discussed with patient (3) Hypotension: hypotension ? suspect polypharmacy Hold antihypertensives for now prn hydralazine 10mg every 4 hrs if needed for SBP > 160 based on BP trend will resume home BP meds (4) Atrial fibrillation with controlled ventricular rate: continue carvedilol Hold xarelto a/c with heparin gtt to be stopped 4 hrs pre procedure recent echo from 04/2024 with EF 55-60% and mild pulm HTN. (5) Dysphagia: symptomatic several weeks planned for EGD outpatient recently but deferred in view of being on a/c protonix 40mg po BID for now Hb stable at 15 currently , monitor for any worsening of symptoms (6) Acute kidney injury superimposed on CKD: Plan DVT ppx: heparin gtt will suffice Full code July 24, 2024 Per Ortho patient to remain off of Plavix for 5 days prior to surgical intervention. Xarelto and Plavix are both currently on hold. In the interim he continues to be on heparin gtt. and aspirin 81 mg p.o. daily after discussion with vascular surgery at [facility] where his latest right carotid stent was placed in late May. Patient is currently tolerating the heparin and aspirin. Hemoglobin noted to be stable. Creatinine trending up to 2.2 today. Baseline creatinine range is between 1.5-2.0 previously. Poor urine output at 375 cc. Suspect this may be related to ATN from hypotension upon arrival. Currently has a Huber catheter in place. On maintenance IV fluids at 75 cc an hour. Closely monitor for signs of hypervolemia given that patient is chronically on Lasix HCTZ and triamterene at home for history of diastolic CHF. Currently blood pressure is well-maintained. Continue to hold antihypertensives with the exception of carvedilol. Renal consult will be obtained. Renal imaging from July 23, 2024 without any hydronephrosis or stones. PDMP PDMP Reviewed: Not Reviewed Attestations Medical Necessity Statement*: Continued admission, needs definitive orthopedic surgical management, on heparin gtt. while off Plavix and Xarelto, DANILO on CKD Coding Level of Care Code Acute Code for Chg Fwd Diagnoses Closed displaced intertrochanteric fracture of left femur, initial encounter S72.142A Encounter type: initial encounter Fracture type: closed Fracture alignment: displaced Laterality: left Carotid artery stenosis with cerebral infarction I63.239 Hypotension I95.9 Atrial fibrillation with controlled ventricular rate I48.91 Dysphagia R13.10 Acute kidney injury superimposed on CKD N17.9; N18.9
[2024-07-24 15:29] LABS: Partial Thromboplastin Time 68.5 Seconds (23.9-36.7); Prothrombin Time (Patient) 15.6 Seconds (12-15.1)
[2024-07-24 15:37] LABS: PT 50/50 Mix 14.3 Seconds (12.0-15.1); PTT 50/50 MIX 37.8 Seconds (23.9-36.7)
[2024-07-24 16:17] LABS: Bilirubin Urine Neg (Negative); Blood Urine 3+ (Negative); Glucose Urine UA Norm (Normal); Ketones Urine Negative (Negative); Leukocyte Esterase Urine 1+ (Negative); Nitrate Urine Negative (Negative); Protein Urine 1+ (Negative); Specific Gravity, Urine 1.048 (1.005-1.030); Urine Appearance Slightly Cloudy (CLEAR); Urine Color Yellow (Yellow)
[2024-07-24 16:18] LABS: UA Manual Slide Review YES
[2024-07-24 16:25] LABS: RBC Urine 80-100 /hpf (0-2)
[2024-07-24 16:26] LABS: Add Urine Culture? Yes; Bacteria Urine 1+ /hpf; Squamous Epithelial Cell Urine 0-4 /hpf (0-5)
[2024-07-24 16:48] LABS: Glucose Point of Care 112 mg/dL (70-110)
[2024-07-24] MEDS: sodium chloride 0.9% 1,000 ML 75 ML IV (17:39)
[2024-07-24] MEDS: escitalopram 10 mg Tablet PO (17:41)
[2024-07-24] MEDS: URSODIOL 300 MG 900 EACH PO (17:42)
[2024-07-24 20:40] LABS: Glucose Point of Care 112 mg/dL (70-110)
[2024-07-24] MEDS: cyclobenzaprine 10 mg Tablet 5 MG PO (21:36)
[2024-07-24 21:54] LABS: Prothrombin Time (Patient) 15.6 Seconds (12-15.1)
[2024-07-24 22:13] LABS: PT 50/50 Mix 14.1 Seconds (12.0-15.1); PTT 50/50 MIX 33.9 Seconds (23.9-36.7)
[2024-07-25] VITALS (13 sets, daily range): BP systolic 98–156; BP diastolic 52–72; PULSE 74–94; RESP 16–19; TEMP 36.4–36.6; O2SAT 94–97
[2024-07-25] MEDS: heparin drip 25,000 UNIT/500 ML PREMIX 16 UNIT IV (02:51)
[2024-07-25 03:10] LABS: Basophils % 0.3 %; Eosinophils # 0.2 10^3/uL (0.0-0.8); Eosinophils % 1.8 %; Hematocrit 33.7 % (37-53); Lymphocytes # 1.7 10^3/uL (0.8-4.8); Lymphocytes % 18.7 %; Mean Corpuscular HGB Conc 31.8 g/dL (30-55); Mean Corpuscular Hemoglobin 31.1 pg (27-33); Mean Platelet Volume 9.9 fL (7.4-10.4); Monocytes # 1.6 10^3/uL (0.2-0.9); Monocytes % 17.6 %; Neutrophils # 5.59 10^3/uL (1.8-7.7); Neutrophils % 60.6 %; Nucleated Red Blood Cells % 0 %; Platelet Count 268 10^3/cmm (157-399); Red Blood Count 3.44 10^6/uL (3.85-5.65); Red Cell Distribution Width 14.7 % (12.1-15.1); White Blood Count 9.23 10^3/uL (3.29-11.43)
[2024-07-25 03:30] LABS: Alanine Aminotransferase 15 U/L (0-41); Albumin Level 2.7 g/dL (3.5-5.2); Alkaline Phosphatase 77 U/L (40-130); Anion Gap 16.5 (5-19); Aspartate Amino Transferase 17 U/L (0-40); Blood Urea Nitrogen 43 mg/dL (8-23); Calcium 7.7 mg/dL (8.5-10.5); Carbon Dioxide 22 mmol/L (22-29); Chloride 101 mmol/L (98-107); Creatinine Clr Calc Pharmacy 24.8289; Globulin 2.5 g/dL (1.3-4.6); Glucose 111 mg/dL (65-115); Osmolality Calculated 292 mOsm/kg (285-295); Partial Thromboplastin Time 73.4 SECONDS (23.9-36.7); Potassium 4.5 mmol/L (3.5-5.1); Sodium 135 mmol/L (136-145); Total Bilirubin 0.5 mg/dL (0.15-1.2); Total Protein 5.2 g/dL (6.6-8.7)
[2024-07-25] MEDS: sodium chloride 0.9% 1,000 ML 500 ML IV (04:15)
[2024-07-25 06:26] LABS: Glucose Point of Care 102 mg/dL (70-110)
--- NOTE | 2024-07-25 07:11 | PC.NURSE ---
LABS notified MD of pt creatinine level continuing to trend up despite increased IVF rate, low urine output overnight, and poor po intake. received order for 1L IVF bolus for pt.
[2024-07-25] MEDS: oxyCODONE-APAP 5-325 mg Tablet 1 TAB PO ×2 (07:55→16:39)
[2024-07-25] MEDS: carvedilol 12.5 mg Tablet PO (07:55)
[2024-07-25] MEDS: cyclobenzaprine 10 mg Tablet 5 MG PO (07:55)
[2024-07-25] MEDS: atorvastatin 40 mg Tablet 80 MG PO (07:56)
[2024-07-25] MEDS: aspirin 81 mg EC Tablet PO (07:56)
[2024-07-25] MEDS: pantoprazole DR 40 mg Tablet PO ×2 (07:56→18:33)
[2024-07-25] MEDS: sodium chloride 0.9% 1,000 ML 75 ML IV ×2 (08:45→22:08)
[2024-07-25] MEDS: URSODIOL 300 MG 600 EACH PO (08:47)
[2024-07-25 09:24] LABS: Partial Thromboplastin Time 94.1 SECONDS (23.9-36.7)
--- NOTE | 2024-07-25 10:04 | PM.CONSULT ---
Providers/Reason For Consult Consulting Physician/Specialty*: kommana/Nephrology Reason for Consult*: Acute on ckd Attending Physician: Kirsten Pinzon MD Primary Care Provider: Humberto Griggs DO History of Present Illness History of Present Illness Andrés Dumont is a 79 year old male Patient is a 79-year-old male with past medical history of hypertension, diabetes, atrial fibrillation history of right symptomatic carotid artery stenosis underwent stenting in May 2024. Patient currently on Plavix and Xarelto. Patient was brought to the emergency department after he sustained a fall at home and he complained of feeling dizzy. Patient was noted to be hypotensive in the emergency department. Further workup has showed that he has comminuted displaced right hip fracture as well. He received CT with IV contrast on presentation. Creatinine on presentation was 1.6 that has gotten worse to 3.3 currently. Patient has a history of CKD with a baseline creatinine in the 1.5-2 range but patient is currently not followed by nephrology as outpatient. He is on room air currently. No hydronephrosis seen on CT. Review of Systems Narrative: negative Medications/Allergies Home Medications ?Medication ?Instructions ?Recorded ?Confirmed ?Last Taken ?Type pantoprazole 40 mg tablet,delayed 40 mg PO BID 11/19/20 07/23/24 06/09/24 History release fluticasone propionate 50 2 spray intranasal DAILY PRN Nasal 09/18/21 07/23/24 06/09/24 History mcg/actuation nasal Congestion spray,suspension glipizide 10 mg tablet, extended 10 mg PO DAILY 09/18/21 07/23/24 06/10/24 History release 24 hr triamterene 75 1 tab PO DAILY 12/18/21 07/23/24 06/09/24 History mg-hydrochlorothiazide 50 mg tablet furosemide 20 mg tablet (Lasix) 20 mg PO DAILY PRN Edema 11/16/23 07/23/24 06/10/24 History carvedilol 12.5 mg tablet 12.5 mg PO BID #180 tabs 03/28/24 07/23/24 06/10/24 Rx hydralazine 25 mg tablet 25 mg PO BID #180 tabs 03/28/24 07/23/24 05/17/24 Rx multivitamin (Multiple Vitamins 1 tab PO DAILY 03/28/24 07/23/24 06/09/24 History tablet) insulin glargine 100 unit/mL (3 35 unit SUBCUT BID 05/17/24 07/23/24 06/09/24 History mL) subcutaneous pen (Lantus Solostar U-100 Insulin) lisinopril 20 mg tablet 20 mg PO DAILY 05/17/24 07/23/24 06/10/24 History rosuvastatin 40 mg tablet 40 mg PO DAILY #30 tabs 05/18/24 07/23/24 06/10/24 Rx potassium chloride 10 mEq 10 meq PO BID 06/10/24 07/23/24 06/10/24 History tablet,extended release rivaroxaban 20 mg tablet (Xarelto) See Rx Instructions .Route 07/18/24 07/23/24 Unknown Rx .COMPLEX #30 tabs albuterol sulfate 90 mcg/actuation 2 puff inhalation .Q4-6H 07/23/24 07/23/24 Unknown History aerosol inhaler clopidogrel 75 mg tablet 75 mg PO DAILY 07/23/24 07/23/24 Unknown History escitalopram oxalate 10 mg tablet 10 mg PO QPM 07/23/24 07/23/24 Unknown History prednisone 20 mg tablet 40 mg PO DAILY 07/23/24 07/23/24 Unknown History ursodiol 300 mg capsule 1,500 mg PO DAILY 07/23/24 07/23/24 Unknown History Allergies Allergy/AdvReac Type Severity Reaction Status Date / Time lovastatin Allergy RASH Verified 05/17/24 11:31 blood Allergy Unknown Trisha's Uncoded 07/23/24 20:01 witness Current Medications Generic Name Dose Route Start Last Admin Trade Name Eleno PRN Reason Stop Dose Admin Aspirin 81 mg 07/24/24 09:00 07/25/24 07:56 Aspirin 81 Mg Ec Tablet PO 81 mg DAILY SAHIL Administration Atorvastatin Calcium 80 mg 07/24/24 09:00 07/25/24 07:56 Atorvastatin 40 Mg Tablet PO 80 mg DAILY SAHIL Administration Carvedilol 12.5 mg 07/23/24 18:00 07/25/24 07:55 Carvedilol 12.5 Mg Tablet PO 12.5 mg BID SAHIL Administration Cyclobenzaprine HCl 5 mg 07/23/24 17:13 07/25/24 07:55 Cyclobenzaprine 10 Mg Tablet PO 5 mg TID PRN Administration MUSCLE SPASMS Escitalopram Oxalate 10 mg 07/23/24 18:00 07/24/24 17:41 Escitalopram 10 Mg Tablet PO 10 mg QPM SAHIL Administration Sodium Chloride 1,000 mls @ 75 mls/hr 07/23/24 17:15 07/25/24 08:45 Sodium Chloride 0.9% IV 75 mls/hr .[id number] SAHIL Administration Heparin Sodium/Sodium Chloride 25,000 unit in 500 mls @ 0 mls/hr 07/23/24 19:45 07/25/24 09:35 Heparin Drip IV 5.56 unit/kg/hr CONT SAHIL 12 mls/hr Protocol Titration Per Protocol Insulin Human Lispro 0 unit 07/23/24 18:00 07/25/24 07:53 Insulin Lispro 100 Unit/1 Ml SUBCUT Not Given [facility] Protocol Morphine Sulfate 2 mg 07/23/24 17:06 07/24/24 14:47 Morphine 4 Mg/Ml Sdv 1 Ml IVP 2 mg Q4H PRN Administration SEVERE PAIN Non-Formulary Medication 900 mg 07/24/24 18:00 07/24/24 17:42 Ursodiol PO 900 mg QPM SAHIL Administration Non-Formulary Medication 600 mg 07/24/24 10:45 07/25/24 08:47 Ursodiol PO 600 mg DAILY SAHIL Administration Oxycodone/Acetaminophen 1 tab 07/23/24 17:06 07/25/24 07:55 Oxycodone-Apap 5-325 Mg Tablet PO 1 tab Q4H PRN Administration SEVERE PAIN Pantoprazole Sodium 40 mg 07/23/24 18:00 07/25/24 07:[address] 40 Mg Tablet PO 40 mg BID SAHIL Administration PFSH Acute PFSH: Medical History Hypertension Anticoagulation adequate with anticoagulant therapy Atrial fibrillation with controlled ventricular rate BPH (benign prostatic hyperplasia) Mass of right kidney Diabetes mellitus Acute cholecystitis Callus of foot Chronic ulcer of great toe of right foot, limited to breakdown of skin Hammertoe Peripheral arterial disease Diabetic peripheral neuropathy associated with type 2 diabetes mellitus Diabetes mellitus GERD (gastroesophageal reflux disease) Venous insufficiency Prostatitis, acute Acute cystitis with hematuria Surgical History Hx of cholecystectomy Status post right inguinal hernia repair Status post colonoscopy (12/13/20) descending colon polyp H/O esophagogastroduodenoscopy (12/13/20) normal Hx of tonsillectomy Family History Mother , AT AGE 73 Cancer COLON Father , AT AGE 50 Diabetes Social History Smoking and tobacco/nicotine status: former use of tobacco/nicotine Alcohol intake: current Alcohol intake frequency: holidays/special occasions only Marital status: Current occupational status: retired Vitals/I&O/Wt Last Vital Signs Temp 97.6 F 07/25/24 08:00 Pulse 89 07/25/24 08:42 Resp 16 07/25/24 08:42 BP 146/72 07/25/24 08:00 Pulse Ox 97 07/25/24 08:42 O2 Del Method Room Air 07/25/24 08:42 07/24/24 07/25/24 07/25/24 22:59 06:59 14:59 Intake Total 644.401 / 7104.883 6965.267 / 3256.001 484.667 / 484.667 Output Total 225 / 225 Balance 644.401 / 6051.053 9829.267 / 3031.001 484.667 / 484.667 Weight last 48 hrs Weight 119.567 kg Weight 114.577 kg Weight 107.728 kg Weight 107.955 kg Physical Exam Narrative: awake , alert , no distress PEERLA S1S2 RRR Lung clear Abd soft , non tender No edema Urinary Catheter Management: Huber: Cath Placed During This Visit: yes Reason for Continuing Indwelling Catheter: Required Immobilization for Trauma or Surgery or Anesthesia Urinary Catheter Date of Insertion: 07/23/24 Data 07/25/24 02:56 07/25/24 02:56 Micro: Microbiology 07/24/24 15:50 Urine Culture - Preliminary Urine,Clean Catch A&P Assessment and plan (1) Acute kidney injury superimposed on CKD: Plan 1. Acute on chronic kidney disease stage III: Baseline creatinine in the 1.5-2 range, now has DANILO with a creatinine up to 3.3-in the setting of hypotension possibly ATN as well as IV contrast exposure on 07/23/2024. - No acute indication for dialysis currently, will continue to monitor renal function closely, avoid IV contrast exposure if possible. Holding HCTZ/triamterene. 2. NSTEMI: On heparin drip 3. Hypertension: Was hypotensive on presentation, meds on hold 4. History of carotid artery stenosis and status post stenting recently in May 2024 5. Right hip fracture, followed by Ortho, plan for ORIF Patient evaluated using audiovisual cart. Time spent 40 minutes PDMP PDMP Reviewed: Not Reviewed Coding Level of Care Code Acute Code for Chg Fwd Diagnoses Acute kidney injury superimposed on CKD N17.9; N18.9
--- NOTE | 2024-07-25 10:10 | PC.SOCIAL ---
IMM Update pg 2 of IMM Updated and reviewed w/ patient. Copy dated, initialed and placed in chart and copy provided to patient.
[2024-07-25 11:22] LABS: Glucose Point of Care 140 mg/dL (70-110)
[2024-07-25] MEDS: sodium chloride 0.9% 250 ML IV (13:13)
--- NOTE | 2024-07-25 13:40 | PM.PN ---
Subjective Subjective: Seen today. Blood pressure soft. Patient laying in bed appearing comfortable at this time. Denies any pain. reports that patient's hydralazine was previously stopped by the primary care physician due to low blood pressures. Vitals/I&O/Wt Last Vital Signs Temp 97.8 F 07/25/24 11:13 Pulse 81 07/25/24 11:13 Resp 17 07/25/24 11:13 BP 99/61 07/25/24 11:13 Pulse Ox 97 07/25/24 11:13 O2 Del Method Room Air 07/25/24 11:13 07/24/24 07/25/24 07/25/24 22:59 06:59 14:59 Intake Total 644.401 / 1285.481 5692.267 / 3256.001 724.667 / 724.667 Output Total 225 / 225 Balance 644.401 / 3406.122 0701.267 / 3031.001 724.667 / 724.667 Weight last 48 hrs Weight 119.567 kg Weight 114.577 kg Weight 107.728 kg Physical Exam Narrative: General: No acute distress, AO x3 HEENT: PERRLA, pupils bilaterally equal and reactive, pallors not present Chest: Normal vesicular breath sounds, no added sounds, equal good air entry bilaterally CVS: S1-S2 regular, no murmurs, no tachycardia, no gallops, no rubs Abdomen: Soft, nontender, no organomegaly, bowel sounds present Neuro: No focal deficits, no facial deformity, AO x3, power 5/5 in all limbs Ext: Right LE shortened and extrenally rotated Urinary Catheter Management: Huber: Cath Placed During This Visit: yes Reason for Continuing Indwelling Catheter: Required Immobilization for Trauma or Surgery or Anesthesia Urinary Catheter Date of Insertion: 07/23/24 Data 07/25/24 02:56 07/25/24 02:56 Micro: Microbiology 07/24/24 15:50 Urine Culture - Preliminary Urine,Clean Catch A&P Assessment and plan (1) Intertrochanteric fracture: Presenting with fall and intertrochanteric fracture today. activity/limb immbolization instructions per ortho service Planned for OR intervention, therefore holding Xarelto and Plavix. Recommended per ortho to be off Plavix for 5 days before ORIF. Prn morphine, Oxy/APAP for pain control Patient is Restorationist, does not accept blood products (2) Carotid artery stenosis with cerebral infarction: h/o recent symptomatic carotid artery stenosis with CVA s/p Right carotid stenting at [facility] in later may 2024. Discussed case with vascular surgery financial institution treasurer at [facility] recommended to maintain anticogulation with Heparin gtt and antiplatelet coverage with Asa 81mg daily while Plavix and Xarelto remain on hold to minimize risk of CVA monitor serial Hb and platelet count high risk of CVA discussed with patient (3) Hypotension: hypotension ? suspect polypharmacy Hold antihypertensives for now prn hydralazine 10mg every 4 hrs if needed for SBP > 160 based on BP trend will resume home BP meds (4) Atrial fibrillation with controlled ventricular rate: continue carvedilol Hold xarelto a/c with heparin gtt to be stopped 4 hrs pre procedure recent echo from 04/2024 with EF 55-60% and mild pulm HTN. (5) Dysphagia: symptomatic several weeks planned for EGD outpatient recently but deferred in view of being on a/c protonix 40mg po BID for now Hb stable at 15 currently , monitor for any worsening of symptoms (6) Acute kidney injury superimposed on CKD: Plan DVT ppx: heparin gtt will suffice Full code July 24, 2024 Per Ortho patient to remain off of Plavix for 5 days prior to surgical intervention. Xarelto and Plavix are both currently on hold. In the interim he continues to be on heparin gtt. and aspirin 81 mg p.o. daily after discussion with vascular surgery at [facility] where his latest right carotid stent was placed in late May. Patient is currently tolerating the heparin and aspirin. Hemoglobin noted to be stable. Creatinine trending up to 2.2 today. Baseline creatinine range is between 1.5-2.0 previously. Poor urine output at 375 cc. Suspect this may be related to ATN from hypotension upon arrival. Currently has a Huber catheter in place. On maintenance IV fluids at 75 cc an hour. Closely monitor for signs of hypervolemia given that patient is chronically on Lasix HCTZ and triamterene at home for history of diastolic CHF. Currently blood pressure is well-maintained. Continue to hold antihypertensives with the exception of carvedilol. Renal consult will be obtained. Renal imaging from July 23, 2024 without any hydronephrosis or stones. 07/25/2024 We will wait for 5 days prior to surgical intervention as per Ortho recommendations. Xarelto and Plavix both currently on hold. Continue heparin drip. ? Vascular surgery at [facility] was contacted. Continue on aspirin 81 daily. ? Creatinine trending up to 3.3 today. Most likely secondary to prerenal cause from hypotension. Continue maintenance fluid 75 cc/h. ? Continue to hold Lasix hydrochlorothiazide, try Motrin. Carvedilol was being continued however blood pressure is soft 99/61. I will hold that today as well. ? Consult nephrology. PDMP PDMP Reviewed: Not Reviewed Attestations Medical Necessity Statement*: Continued admission, needs definitive orthopedic surgical management, on heparin gtt. while off Plavix and Xarelto, DANILO on CKD Diagnoses Closed displaced intertrochanteric fracture of left femur, initial encounter S72.142A Encounter type: initial encounter Fracture type: closed Fracture alignment: displaced Laterality: left Carotid artery stenosis with cerebral infarction I63.239 Hypotension I95.9 Atrial fibrillation with controlled ventricular rate I48.91 Dysphagia R13.10 Acute kidney injury superimposed on CKD N17.9; N18.9
[2024-07-25 16:03] LABS: Partial Thromboplastin Time 53.8 SECONDS (23.9-36.7)
--- NOTE | 2024-07-25 16:31 | P.PN_ITS ---
Subjective 2 Subjective: Patient is now day 2 in the hospital with the left hip fracture. Waiting on Plavix to clear his system. Vitals/I&O/Wt Last Vital Signs Temp 97.9 F 07/25/24 16:00 Pulse 76 07/25/24 16:00 Resp 17 07/25/24 16:00 BP 156/68 07/25/24 16:00 Pulse Ox 94 07/25/24 16:00 O2 Del Method Room Air 07/25/24 16:00 07/25/24 07/25/24 07/25/24 06:59 14:59 22:59 Intake Total 1938.267 / 3256.001 974.667 / 974.667 Output Total 225 / 225 Balance 1713.267 / 3031.001 974.667 / 974.667 Weight last 48 hrs Weight 263 lb 9.6 oz Weight 252 lb 9.6 oz Weight 237 lb 8 oz Physical Exam 2 Narrative: No formal exam done Urinary Catheter Management: Huber: Cath Placed During This Visit: yes Reason for Continuing Indwelling Catheter: Required Immobilization for Trauma or Surgery or Anesthesia Urinary Catheter Date of Insertion: 07/23/24 Data 07/25/24 02:56 07/25/24 02:56 Micro: Microbiology 07/24/24 15:50 Urine Culture - Preliminary Urine,Clean Catch A&P Assessment and plan (1) Intertrochanteric fracture: Intertrochanteric fracture left hip, patient has been on Plavix needs to wait total 5 days before safe for surgery Plan Plan at this time is to go ahead and schedule him for close reduction internal fixation of left hip fracture on of this week 07/28/2024 PDMP PDMP Reviewed: Not Reviewed Attestations 2 Medical Necessity Statement*: In need of surgical repair of his hip. Also in need of pain medicine and help with ADLs Coding Level of Care Code Critical Care >/= 30 minutes Diagnoses Closed displaced intertrochanteric fracture of left femur, initial encounter S72.142A Encounter type: initial encounter Fracture type: closed Fracture alignment: displaced Laterality: left
[2024-07-25] MEDS: heparin 5,000 unit/mL INJ 1 mL IVP (16:33)
[2024-07-25 17:00] LABS: Glucose Point of Care 144 mg/dL (70-110)
[2024-07-25] MEDS: insulin lispro 100 unit/1 mL SUBCUT ×2 (18:32→20:58)
[2024-07-25] MEDS: escitalopram 10 mg Tablet PO (18:33)
[2024-07-25] MEDS: URSODIOL 300 MG 900 EACH PO (18:33)
[2024-07-25 20:59] LABS: Glucose Point of Care 149 mg/dL (70-110)
[2024-07-25 23:32] LABS: Partial Thromboplastin Time 58.4 SECONDS (23.9-36.7)
[2024-07-26] VITALS (14 sets, daily range): BP systolic 122–172; BP diastolic 67–92; PULSE 80–124; RESP 16–18; TEMP 36.3–37.1; O2SAT 96–98
[2024-07-26] MEDS: oxyCODONE-APAP 5-325 mg Tablet 1 TAB PO ×4 (02:38→21:33)
[2024-07-26 05:11] LABS: Basophils % 0.3 %; Eosinophils # 0.3 10^3/uL (0.0-0.8); Eosinophils % 2.7 %; Hematocrit 28.9 % (37-53); Lymphocytes # 1.5 10^3/uL (0.8-4.8); Lymphocytes % 16.2 %; Mean Corpuscular HGB Conc 32.9 g/dL (30-55); Mean Corpuscular Hemoglobin 31.9 pg (27-33); Mean Platelet Volume 9.7 fL (7.4-10.4); Monocytes # 1.7 10^3/uL (0.2-0.9); Monocytes % 18.1 %; Neutrophils # 5.63 10^3/uL (1.8-7.7); Neutrophils % 60.8 %; Nucleated Red Blood Cells % 0 %; Platelet Count 266 10^3/cmm (157-399); Red Blood Count 2.98 10^6/uL (3.85-5.65); Red Cell Distribution Width 14.6 % (12.1-15.1); White Blood Count 9.27 10^3/uL (3.29-11.43)
[2024-07-26 05:23] LABS: Partial Thromboplastin Time 61.3 SECONDS (23.9-36.7)
[2024-07-26 05:33] LABS: Anion Gap 18.4 (5-19); Blood Urea Nitrogen 57 mg/dL (8-23); Calcium 7.4 mg/dL (8.5-10.5); Carbon Dioxide 18 mmol/L (22-29); Chloride 98 mmol/L (98-107); Creatinine Clr Calc Pharmacy 18.1857; Glucose 113 mg/dL (65-115); Magnesium 1.5 mg/dL (1.7-2.3); Osmolality Calculated 287 mOsm/kg (285-295); Potassium 4.4 mmol/L (3.5-5.1); Sodium 130 mmol/L (136-145)
[2024-07-26 06:46] LABS: Glucose Point of Care 139 mg/dL (70-110)
[2024-07-26] MEDS: aspirin 81 mg EC Tablet PO (08:04)
[2024-07-26] MEDS: atorvastatin 40 mg Tablet 80 MG PO (08:04)
[2024-07-26] MEDS: URSODIOL 300 MG 600 EACH PO (08:04)
[2024-07-26] MEDS: pantoprazole DR 40 mg Tablet PO ×2 (08:04→17:24)
[2024-07-26] MEDS: heparin drip 25,000 UNIT/500 ML PREMIX 14 UNIT IV (11:01)
[2024-07-26] MEDS: sodium chloride 0.9% 1,000 ML 75 ML IV ×2 (11:01→23:13)
[2024-07-26 11:20] LABS: Glucose Point of Care 134 mg/dL (70-110)
[2024-07-26 11:30] LABS: Partial Thromboplastin Time 60.6 SECONDS (23.9-36.7)
[2024-07-26] MEDS: cyclobenzaprine 10 mg Tablet 5 MG PO (13:30)
--- NOTE | 2024-07-26 13:45 | P.PN_ITS ---
Subjective 2 Subjective: denies any complaints Medications: Reviewed: Yes Vitals/I&O/Wt Last Vital Signs Temp 97.9 F 07/26/24 11:25 Pulse 93 07/26/24 11:25 Resp 17 07/26/24 11:25 BP 147/72 07/26/24 11:25 Pulse Ox 97 07/26/24 11:25 O2 Del Method Room Air 07/26/24 11:25 07/25/24 07/26/24 07/26/24 22:59 06:59 14:59 Intake Total 1426.2 / 2400.867 177.567 / 2578.434 1533.283 / 1533.283 Output Total 100 / 100 250 / 350 Balance 1326.2 / 2300.867 -72.433 / 2228.434 1533.283 / 1533.283 Weight last 48 hrs Weight 120.202 kg Weight 119.805 kg Weight 119.567 kg Physical Exam 2 Narrative: awake , alert , no distress PEERLA S1S2 RRR Lung clear Abd soft , non tender No edema Urinary Catheter Management: Huber: Cath Placed During This Visit: yes Reason for Continuing Indwelling Catheter: Required Immobilization for Trauma or Surgery or Anesthesia Urinary Catheter Date of Insertion: 07/23/24 Data 07/26/24 04:58 07/26/24 04:58 Micro: Microbiology 07/24/24 15:50 Urine Culture - Final Urine,Clean Catch A&P Assessment and plan (1) Acute kidney injury superimposed on CKD: Plan 1. Acute on chronic kidney disease stage III: Baseline creatinine in the 1.5-2 range, now has DANILO with a creatinine up to 3.3-in the setting of hypotension possibly ATN as well as IV contrast exposure on 07/23/2024. -Cr worsening - No acute indication for dialysis today , will continue to monitor renal function closely, avoid IV contrast exposure if possible. Holding HCTZ/triamterene. - if continus to get worse , will discuss temporary HD 2. NSTEMI: On heparin drip 3. Hypertension: Was hypotensive on presentation, meds on hold 4. History of carotid artery stenosis and status post stenting recently in May 2024 5. Right hip fracture, followed by Ortho, plan for ORIF on Patient evaluated using audiovisual cart. Time spent 40 minutes PDMP PDMP Reviewed: Not Reviewed Attestations 2 Medical Necessity Statement*: per medicne Coding Level of Care Code Acute Code for Chg Fwd Diagnoses Acute kidney injury superimposed on CKD N17.9; N18.9
--- NOTE | 2024-07-26 15:07 | P.PN_ITS ---
Subjective 2 Subjective: seen today cr upto 4.6 nephrology following; no acute events overnight Vitals/I&O/Wt Last Vital Signs Temp 97.9 F 07/26/24 11:25 Pulse 93 07/26/24 11:25 Resp 17 07/26/24 11:25 BP 147/72 07/26/24 11:25 Pulse Ox 97 07/26/24 11:25 O2 Del Method Room Air 07/26/24 11:25 07/26/24 07/26/24 07/26/24 06:59 14:59 22:59 Intake Total 177.567 / 2578.434 1533.283 / 1533.283 Output Total 250 / 350 Balance -72.433 / 2228.434 1533.283 / 1533.283 Weight last 48 hrs Weight 120.202 kg Weight 119.805 kg Weight 119.567 kg Physical Exam 2 Narrative: General: No acute distress, AO x3 HEENT: PERRLA, pupils bilaterally equal and reactive, pallors not present Chest: Normal vesicular breath sounds, no added sounds, equal good air entry bilaterally CVS: S1-S2 regular, no murmurs, no tachycardia, no gallops, no rubs Abdomen: Soft, nontender, bowel sounds present Neuro: No focal deficits, no facial deformity, AO x3, Ext: Right LE shortened and externally rotated Urinary Catheter Management: Huber: Cath Placed During This Visit: yes Reason for Continuing Indwelling Catheter: Required Immobilization for Trauma or Surgery or Anesthesia Urinary Catheter Date of Insertion: 07/23/24 Data 07/26/24 04:58 07/26/24 04:58 Micro: Microbiology 07/24/24 15:50 Urine Culture - Final Urine,Clean Catch A&P Assessment and plan (1) Intertrochanteric fracture: Presenting with fall and intertrochanteric fracture today. activity/limb immbolization instructions per ortho service Planned for OR intervention, therefore holding Xarelto and Plavix. Recommended per ortho to be off Plavix for 5 days before ORIF. Prn morphine, Oxy/APAP for pain control Patient is [employer], does not accept blood products (2) Carotid artery stenosis with cerebral infarction: h/o recent symptomatic carotid artery stenosis with CVA s/p Right carotid stenting at [facility] in later may 2024. Discussed case with vascular surgery glass scullion at [facility] recommended to maintain anticogulation with Heparin gtt and antiplatelet coverage with Asa 81mg daily while Plavix and Xarelto remain on hold to minimize risk of CVA monitor serial Hb and platelet count high risk of CVA discussed with patient (3) Hypotension: hypotension ? suspect polypharmacy Hold antihypertensives for now prn hydralazine 10mg every 4 hrs if needed for SBP > 160 based on BP trend will resume home BP meds (4) Atrial fibrillation with controlled ventricular rate: continue carvedilol Hold xarelto a/c with heparin gtt to be stopped 4 hrs pre procedure recent echo from 04/2024 with EF 55-60% and mild pulm HTN. (5) Dysphagia: symptomatic several weeks planned for EGD outpatient recently but deferred in view of being on a/c protonix 40mg po BID for now Hb stable at 15 currently , monitor for any worsening of symptoms (6) Acute kidney injury superimposed on CKD: Plan DVT ppx: heparin gtt will suffice Full code July 24, 2024 Per Ortho patient to remain off of Plavix for 5 days prior to surgical intervention. Xarelto and Plavix are both currently on hold. In the interim he continues to be on heparin gtt. and aspirin 81 mg p.o. daily after discussion with vascular surgery at [facility] where his latest right carotid stent was placed in late May. Patient is currently tolerating the heparin and aspirin. Hemoglobin noted to be stable. Creatinine trending up to 2.2 today. Baseline creatinine range is between 1.5- 2.0 previously. Poor urine output at 375 cc. Suspect this may be related to ATN from hypotension upon arrival. Currently has a Huber catheter in place. On maintenance IV fluids at 75 cc an hour. Closely monitor for signs of hypervolemia given that patient is chronically on Lasix HCTZ and triamterene at home for history of diastolic CHF. Currently blood pressure is well-maintained. Continue to hold antihypertensives with the exception of carvedilol. Renal consult will be obtained. Renal imaging from July 23, 2024 without any hydronephrosis or stones. 07/25/2024 We will wait for 5 days prior to surgical intervention as per Ortho recommendations. Xarelto and Plavix both currently on hold. Continue heparin drip. ? Vascular surgery at [facility] was contacted. Continue on aspirin 81 daily. ? Creatinine trending up to 3.3 today. Most likely secondary to prerenal cause from hypotension. Continue maintenance fluid 75 cc/h. ? Continue to hold Lasix hydrochlorothiazide, try Motrin. Carvedilol was being continued however blood pressure is soft 99/61. I will hold that today as well. ? Consult nephrology. 07/26/2024 cr 4.6 nephro following continue to hctz continue heparin gtt plan for surgery 07/28 speech assessment complete: thickened liquids added coreg held PDMP PDMP Reviewed: Not Reviewed Attestations 2 Medical Necessity Statement*: Continued admission, needs definitive orthopedic surgical management, on heparin gtt. while off Plavix and Xarelto, DANILO on CKD Diagnoses Closed displaced intertrochanteric fracture of left femur, initial encounter S72.142A Encounter type: initial encounter Fracture type: closed Fracture alignment: displaced Laterality: left Carotid artery stenosis with cerebral infarction I63.239 Hypotension I95.9 Atrial fibrillation with controlled ventricular rate I48.91 Dysphagia R13.10 Acute kidney injury superimposed on CKD N17.9; N18.9
[2024-07-26 16:25] LABS: Glucose Point of Care 131 mg/dL (70-110)
[2024-07-26] MEDS: escitalopram 10 mg Tablet PO (17:24)
[2024-07-26] MEDS: URSODIOL 300 MG 900 EACH PO (17:25)
[2024-07-26 17:26] LABS: Partial Thromboplastin Time 54.4 SECONDS (23.9-36.7)
[2024-07-26] MEDS: heparin 5,000 unit/mL INJ 1 mL IVP (17:36)
[2024-07-26 19:50] LABS: Partial Thromboplastin Time 21.5 SECONDS (23.9-36.7)
[2024-07-26 20:43] LABS: Glucose Point of Care 161 mg/dL (70-110)
[2024-07-26] MEDS: insulin lispro 100 unit/1 mL SUBCUT (21:12)
[2024-07-26 23:50] LABS: Partial Thromboplastin Time 84.9 SECONDS (23.9-36.7)
[2024-07-27] VITALS (12 sets, daily range): BP systolic 134–162; BP diastolic 70–92; PULSE 89–118; RESP 16–18; TEMP 36.6–36.8; O2SAT 95–97
[2024-07-27] MEDS: oxyCODONE-APAP 5-325 mg Tablet 1 TAB PO ×4 (05:35→18:02)
[2024-07-27 06:19] LABS: Basophils % 0.2 %; Eosinophils # 0.2 10^3/uL (0.0-0.8); Eosinophils % 2.4 %; Hematocrit 28.9 % (37-53); Lymphocytes % 11.7 %; Mean Corpuscular HGB Conc 33.2 g/dL (30-55); Mean Corpuscular Hemoglobin 31.1 pg (27-33); Mean Corpuscular Volume 93.5 fl (82-101); Mean Platelet Volume 9.6 fL (7.4-10.4); Monocytes # 1.4 10^3/uL (0.2-0.9); Monocytes % 16.6 %; Neutrophils # 5.48 10^3/uL (1.8-7.7); Neutrophils % 65.7 %; Nucleated Red Blood Cells % 0 %; Platelet Count 311 10^3/cmm (157-399); Red Blood Count 3.09 10^6/uL (3.85-5.65); Red Cell Distribution Width 14.6 % (12.1-15.1); White Blood Count 8.35 10^3/uL (3.29-11.43)
[2024-07-27 06:28] LABS: Partial Thromboplastin Time 62.9 SECONDS (23.9-36.7)
[2024-07-27 06:35] LABS: Anion Gap 19.6 (5-19); Blood Urea Nitrogen 61 mg/dL (8-23); Calcium 7.8 mg/dL (8.5-10.5); Carbon Dioxide 17 mmol/L (22-29); Chloride 96 mmol/L (98-107); Creatinine Clr Calc Pharmacy 18.8468; Glucose 112 mg/dL (65-115); Magnesium 1.4 mg/dL (1.7-2.3); Osmolality Calculated 284 mOsm/kg (285-295); Potassium 4.6 mmol/L (3.5-5.1); Sodium 128 mmol/L (136-145)
[2024-07-27 06:36] LABS: Glucose Point of Care 146 mg/dL (70-110)
[2024-07-27] MEDS: aspirin 81 mg EC Tablet PO (07:25)
[2024-07-27] MEDS: insulin lispro 100 unit/1 mL SUBCUT ×3 (07:25→22:12)
[2024-07-27] MEDS: cyclobenzaprine 10 mg Tablet 5 MG PO ×2 (07:25→17:10)
[2024-07-27] MEDS: atorvastatin 40 mg Tablet 80 MG PO (07:25)
[2024-07-27] MEDS: pantoprazole DR 40 mg Tablet PO ×2 (07:25→17:10)
[2024-07-27] MEDS: URSODIOL 300 MG 600 EACH PO (07:26)
[2024-07-27] MEDS: FUROsemide 10 mg/mL SDV 10mL 60 MG IVP ×3 (09:42→22:12)
--- NOTE | 2024-07-27 09:46 | PC.SOCIAL ---
IMM Update pg 2 of IMM Updated and reviewed w/ patient. Copy provided and copy dated, initialed and placed in chart.
--- NOTE | 2024-07-27 10:27 | P.PN_ITS ---
Subjective 2 Subjective: no new c/o Medications: Reviewed: Yes Vitals/I&O/Wt Last Vital Signs Temp 97.9 F 07/27/24 08:00 Pulse 106 H 07/27/24 08:00 Resp 18 07/27/24 09:45 BP 160/79 07/27/24 08:00 Pulse Ox 97 07/27/24 09:45 O2 Del Method Room Air 07/27/24 08:00 07/26/24 07/27/24 07/27/24 22:59 06:59 14:59 Intake Total 322.133 / 8347.229 4969.567 / 2957.983 120 / 120 Output Total 250 / 250 800 / 1050 Balance 72.133 / 1605.416 302.567 / 1907.983 120 / 120 Weight last 48 hrs Weight 122.924 kg Weight 120.202 kg Weight 119.805 kg Physical Exam 2 Narrative: awake , alert , no distress PEERLA S1S2 RRR Lung clear Abd soft , non tender No edema Urinary Catheter Management: Huber: Cath Placed During This Visit: yes Reason for Continuing Indwelling Catheter: Required Immobilization for Trauma or Surgery or Anesthesia Urinary Catheter Date of Insertion: 07/23/24 Data 07/27/24 06:00 07/27/24 06:00 Micro: Microbiology 07/24/24 15:50 Urine Culture - Final Urine,Clean Catch A&P Assessment and plan (1) Acute kidney injury superimposed on CKD: Plan 1. Acute on chronic kidney disease stage III: Baseline creatinine in the 1.5-2 range, now has DANILO with a creatinine up to 3.3-in the setting of hypotension possibly ATN as well as IV contrast exposure on 07/23/2024. -Cr stable - No acute indication for dialysis today , will continue to monitor renal function closely, avoid IV contrast exposure if possible. Holding HCTZ/triamterene. - if continus to get worse , will discuss temporary HD 2. NSTEMI: On heparin drip 3. Hypertension: Was hypotensive on presentation, meds on hold 4. History of carotid artery stenosis and status post stenting recently in May 2024 5. Right hip fracture, followed by Ortho, plan for ORIF on Patient evaluated using audiovisual cart. Time spent 40 minutes PDMP PDMP Reviewed: Not Reviewed Attestations 2 Medical Necessity Statement*: per medicine Coding Level of Care Code Acute Code for Chg Fwd Diagnoses Acute kidney injury superimposed on CKD N17.9; N18.9
--- NOTE | 2024-07-27 11:49 | PM.PN ---
Subjective Subjective: seen today pt and state they cannot have blood products, rbc, wbc, plasma, platelets or whole blood since they are jehovah's witnesses. they would like to speak to the surgeon they are aware our hospital does not have a cell saver patient and considering transfer to another facility however later told me they are happy with staying here however would like to speak to surgeon prior to procedure. Patient and state, they will not accept blood under any circumstance cr 4.6 today pt's hands feel puffy Vitals/I&O/Wt Last Vital Signs Temp 97.9 F 07/27/24 08:00 Pulse 108 H 07/27/24 10:31 Resp 16 07/27/24 10:31 BP 160/79 07/27/24 08:00 Pulse Ox 96 07/27/24 10:31 O2 Del Method Room Air 07/27/24 10:31 07/26/24 07/27/24 07/27/24 22:59 06:59 14:59 Intake Total 322.133 / 1665.002 5539.567 / 2957.983 120 / 120 Output Total 250 / 250 800 / 1050 Balance 72.133 / 1605.416 302.567 / 1907.983 120 / 120 Weight last 48 hrs Weight 122.924 kg Weight 120.202 kg Weight 119.805 kg Physical Exam Narrative: General: No acute distress, AO x3 HEENT: PERRLA, pupils bilaterally equal and reactive, pallors not present Chest: Normal vesicular breath sounds, no added sounds, equal good air entry bilaterally CVS: S1-S2 regular, no murmurs, no tachycardia, no gallops, no rubs Abdomen: Soft, nontender, bowel sounds present Neuro: No focal deficits, no facial deformity, AO x3, Ext: Right LE shortened and externally rotated upper and lower extremities, trace edema Urinary Catheter Management: Huber: Cath Placed During This Visit: yes Reason for Continuing Indwelling Catheter: Required Immobilization for Trauma or Surgery or Anesthesia Urinary Catheter Date of Insertion: 07/23/24 Data 07/27/24 06:00 07/27/24 06:00 Micro: Microbiology 07/24/24 15:50 Urine Culture - Final Urine,Clean Catch A&P Assessment and plan (1) Intertrochanteric fracture: Presenting with fall and intertrochanteric fracture today. activity/limb immbolization instructions per ortho service Planned for OR intervention, therefore holding Xarelto and Plavix. Recommended per ortho to be off Plavix for 5 days before ORIF. Prn morphine, Oxy/APAP for pain control Patient is Orthodoxy, does not accept blood products (2) Carotid artery stenosis with cerebral infarction: h/o recent symptomatic carotid artery stenosis with CVA s/p Right carotid stenting at [facility] in later may 2024. Discussed case with vascular surgery electrical power station technician at [facility] recommended to maintain anticogulation with Heparin gtt and antiplatelet coverage with Asa 81mg daily while Plavix and Xarelto remain on hold to minimize risk of CVA monitor serial Hb and platelet count high risk of CVA discussed with patient (3) Hypotension: hypotension ? suspect polypharmacy Hold antihypertensives for now prn hydralazine 10mg every 4 hrs if needed for SBP > 160 based on BP trend will resume home BP meds (4) Atrial fibrillation with controlled ventricular rate: continue carvedilol Hold xarelto a/c with heparin gtt to be stopped 4 hrs pre procedure recent echo from 04/2024 with EF 55-60% and mild pulm HTN. (5) Dysphagia: symptomatic several weeks planned for EGD outpatient recently but deferred in view of being on a/c protonix 40mg po BID for now Hb stable at 15 currently , monitor for any worsening of symptoms (6) Acute kidney injury superimposed on CKD: Plan DVT ppx: heparin gtt will suffice Full code July 24, 2024 Per Ortho patient to remain off of Plavix for 5 days prior to surgical intervention. Xarelto and Plavix are both currently on hold. In the interim he continues to be on heparin gtt. and aspirin 81 mg p.o. daily after discussion with vascular surgery at [facility] where his latest right carotid stent was placed in late May. Patient is currently tolerating the heparin and aspirin. Hemoglobin noted to be stable. Creatinine trending up to 2.2 today. Baseline creatinine range is between 1.5-2.0 previously. Poor urine output at 375 cc. Suspect this may be related to ATN from hypotension upon arrival. Currently has a Huber catheter in place. On maintenance IV fluids at 75 cc an hour. Closely monitor for signs of hypervolemia given that patient is chronically on Lasix HCTZ and triamterene at home for history of diastolic CHF. Currently blood pressure is well-maintained. Continue to hold antihypertensives with the exception of carvedilol. Renal consult will be obtained. Renal imaging from July 23, 2024 without any hydronephrosis or stones. 07/25/2024 We will wait for 5 days prior to surgical intervention as per Ortho recommendations. Xarelto and Plavix both currently on hold. Continue heparin drip. ? Vascular surgery at [facility] was contacted. Continue on aspirin 81 daily. ? Creatinine trending up to 3.3 today. Most likely secondary to prerenal cause from hypotension. Continue maintenance fluid 75 cc/h. ? Continue to hold Lasix hydrochlorothiazide, try Motrin. Carvedilol was being continued however blood pressure is soft 99/61. I will hold that today as well. ? Consult nephrology. 07/26/2024 cr 4.6 nephro following continue to hctz continue heparin gtt plan for surgery 07/28 speech assessment complete: thickened liquids added coreg held 07/27/2024 seen today cr 4.6 continue heparin gtt plan for surgery 07/28 pt appears hypervolemic order lasix 60 IV x1 stop IV fluids sodium 128 today patients labs are worsening, renal function worsening mild acidosis will discuss with nephrology pt will need to be cleared from nephro standpoint for surgery hemoglobin 9.6 today. 15 at admission, 12 the next day... pt was dehydrated on admission check iron studies, suspect anemia due to renal dysfunction no gross bleeding present check fobt continue heparin gtt continue protonix 40 BID recheck BMP at 4 pm today PDMP PDMP Reviewed: Not Reviewed Attestations Medical Necessity Statement*: Continued admission, needs definitive orthopedic surgical management, on heparin gtt. while off Plavix and Xarelto, DANILO on CKD Diagnoses Closed displaced intertrochanteric fracture of left femur, initial encounter S72.142A Encounter type: initial encounter Fracture type: closed Fracture alignment: displaced Laterality: left Carotid artery stenosis with cerebral infarction I63.239 Hypotension I95.9 Atrial fibrillation with controlled ventricular rate I48.91 Dysphagia R13.10 Acute kidney injury superimposed on CKD N17.9; N18.9
[2024-07-27 11:50] LABS: Glucose Point of Care 139 mg/dL (70-110)
[2024-07-27 12:42] LABS: Reticulocyte % 3.3 % (0.5-2.0)
[2024-07-27 13:07] LABS: Ferritin 141 ng/mL (30-400); Iron 38 ug/dL (59-158); Total Iron Binding Capacity 223 mcg/dl; Unsaturated Iron Binding 185 ug/dL (112-347)
[2024-07-27] MEDS: iron sucrose 200 MG in sodium chloride 0.9% (100 ml) 100 ML 220 MG IV (14:15)
[2024-07-27] MEDS: heparin 5,000 unit/mL INJ 1 mL IVP (14:26)
--- NOTE | 2024-07-27 15:50 | PC.SLP ---
Patient request no therapy today. He is with his family members. He indicates surgery scheduled for tomorrow.
--- NOTE | 2024-07-27 16:15 | P.PN_ITS ---
Subjective 2 Subjective: Patient with intertrochanteric hip fracture waiting on Plavix to clear. Plan for surgery tomorrow Medications: Reviewed: Yes Vitals/I&O/Wt Last Vital Signs Temp 98.2 F 07/27/24 15:51 Pulse 101 H 07/27/24 15:51 Resp 16 07/27/24 15:51 BP 144/77 07/27/24 15:51 Pulse Ox 96 07/27/24 15:51 O2 Del Method Room Air 07/27/24 15:51 07/27/24 07/27/24 07/27/24 06:59 14:59 22:59 Intake Total 1102.567 / 2957.983 1369.25 / 1369.25 Output Total 800 / 1050 1670 / 1670 Balance 302.567 / 1907.983 -300.75 / -300.75 Weight last 48 hrs Weight 271 lb Weight 265 lb Weight 264 lb 2 oz Physical Exam 2 Narrative: No formal exam today Urinary Catheter Management: Huber: Cath Placed During This Visit: yes Reason for Continuing Indwelling Catheter: Required Immobilization for Trauma or Surgery or Anesthesia Urinary Catheter Date of Insertion: 07/23/24 Data 07/27/24 06:00 07/27/24 06:00 A&P Assessment and plan (1) Intertrochanteric fracture: Patient with intertrochanteric hip fracture. Adequate time is been allowed for clearance of the Plavix within his system. Plan for surgery tomorrow for close reduction with internal fixation left intertrochanteric hip fracture Plan Plan is surgery tomorrow for repair of his intertrochanteric hip fracture. PDMP PDMP Reviewed: Not Reviewed Attestations 2 Medical Necessity Statement*: Patient needs surgical repair of his hip fracture as well as pain control Coding Level of Care Code Critical Care >/= 30 minutes Diagnoses Closed displaced intertrochanteric fracture of left femur, initial encounter S72.142A Encounter type: initial encounter Fracture type: closed Fracture alignment: displaced Laterality: left
[2024-07-27 16:22] LABS: Anion Gap 19.4 (5-19); Blood Urea Nitrogen 61 mg/dL (8-23); Calcium 7.9 mg/dL (8.5-10.5); Carbon Dioxide 16 mmol/L (22-29); Chloride 97 mmol/L (98-107); Creatinine Clr Calc Pharmacy 21.2026; Glucose 138 mg/dL (65-115); Osmolality Calculated 285 mOsm/kg (285-295); Potassium 4.4 mmol/L (3.5-5.1); Sodium 128 mmol/L (136-145)
[2024-07-27 16:59] LABS: Glucose Point of Care 163 mg/dL (70-110)
[2024-07-27] MEDS: escitalopram 10 mg Tablet PO (17:10)
[2024-07-27] MEDS: URSODIOL 300 MG 900 EACH PO (17:10)
[2024-07-27] MEDS: heparin drip 25,000 UNIT/500 ML PREMIX 18 UNIT IV ×2 (18:02→20:00)
--- NOTE | 2024-07-27 18:52 | PC.NURSE ---
This nurse called Dr. Barrios to inquire about stopping Hep gtt as pt has surgery tomorrow afternoon. Dr. Barrios gave verbal orders to hold Hep gtt at this time.
[2024-07-27 20:52] LABS: Glucose Point of Care 157 mg/dL (70-110)
--- NOTE | 2024-07-27 21:08 | PM.CONSULT ---
Providers/Reason For Consult Consulting Physician/Specialty*: General Surgery Reason for Consult*: Need for temporary dialysis catheter Attending Physician: Kirsten Pinzon MD Primary Care Provider: Humberto Griggs DO History of Present Illness History of Present Illness Andrés Dumont is a 79 year old male Was admitted to the hospital with acute on chronic kidney injury, and a right hip fracture. Patient has been noted to have a creatinine hovering around 4, noted to be progressively acidotic and with mild response to diuretics. He will receive a dose of 120 mg of Lasix today and he had an output of about 3.8 L. Overall he is positive on the 7 L.I was consulted as he has been deemed a good candidate for possible temporary dialysis Review of Systems General: Reports: 10 or more systems reviewed and unremarkable except in HPI and below Medications/Allergies Home Medications ?Medication ?Instructions ?Recorded ?Confirmed ?Last Taken ?Type pantoprazole 40 mg tablet,delayed 40 mg PO BID 11/19/20 07/23/24 06/09/24 History release fluticasone propionate 50 2 spray intranasal DAILY PRN Nasal 09/18/21 07/23/24 06/09/24 History mcg/actuation nasal Congestion spray,suspension glipizide 10 mg tablet, extended 10 mg PO DAILY 09/18/21 07/23/24 06/10/24 History release 24 hr triamterene 75 1 tab PO DAILY 12/18/21 07/23/24 06/09/24 History mg-hydrochlorothiazide 50 mg tablet furosemide 20 mg tablet (Lasix) 20 mg PO DAILY PRN Edema 11/16/23 07/23/24 06/10/24 History carvedilol 12.5 mg tablet 12.5 mg PO BID #180 tabs 03/28/24 07/23/24 06/10/24 Rx hydralazine 25 mg tablet 25 mg PO BID #180 tabs 03/28/24 07/23/24 05/17/24 Rx multivitamin (Multiple Vitamins 1 tab PO DAILY 03/28/24 07/23/24 06/09/24 History tablet) insulin glargine 100 unit/mL (3 35 unit SUBCUT BID 05/17/24 07/23/24 06/09/24 History mL) subcutaneous pen (Lantus Solostar U-100 Insulin) lisinopril 20 mg tablet 20 mg PO DAILY 05/17/24 07/23/24 06/10/24 History rosuvastatin 40 mg tablet 40 mg PO DAILY #30 tabs 05/18/24 07/23/24 06/10/24 Rx potassium chloride 10 mEq 10 meq PO BID 06/10/24 07/23/24 06/10/24 History tablet,extended release rivaroxaban 20 mg tablet (Xarelto) See Rx Instructions .Route 07/18/24 07/23/24 Unknown Rx .COMPLEX #30 tabs albuterol sulfate 90 mcg/actuation 2 puff inhalation .Q4-6H 07/23/24 07/23/24 Unknown History aerosol inhaler clopidogrel 75 mg tablet 75 mg PO DAILY 07/23/24 07/23/24 Unknown History escitalopram oxalate 10 mg tablet 10 mg PO QPM 07/23/24 07/23/24 Unknown History prednisone 20 mg tablet 40 mg PO DAILY 07/23/24 07/23/24 Unknown History ursodiol 300 mg capsule 1,500 mg PO DAILY 07/23/24 07/23/24 Unknown History Allergies Allergy/AdvReac Type Severity Reaction Status Date / Time lovastatin Allergy RASH Verified 05/17/24 11:31 blood Allergy Unknown Trisha's Uncoded 07/23/24 20:01 witness Current Medications Generic Name Dose Route Start Last Admin Trade Name Matq PRN Reason Stop Dose Admin Aspirin 81 mg 07/24/24 09:00 07/27/24 07:25 Aspirin 81 Mg Ec Tablet PO 81 mg DAILY SAHIL Administration Atorvastatin Calcium 80 mg 07/24/24 09:00 07/27/24 07:25 Atorvastatin 40 Mg Tablet PO 80 mg DAILY SAHIL Administration Carvedilol 12.5 mg 07/23/24 18:00 07/25/24 07:55 Carvedilol 12.5 Mg Tablet PO 12.5 mg On Hold: 07/25/24 13:39 BID SAHIL Administration Cyclobenzaprine HCl 5 mg 07/23/24 17:13 07/27/24 17:10 Cyclobenzaprine 10 Mg Tablet PO 5 mg TID PRN Administration MUSCLE SPASMS Escitalopram Oxalate 10 mg 07/23/24 18:00 07/27/24 17:10 Escitalopram 10 Mg Tablet PO 10 mg QPM SAHIL Administration Heparin Sodium (Porcine) 0 unit 07/23/24 19:39 07/27/24 14:26 Heparin 5,000 Unit/Ml Inj 1 Ml IVP 4,400 unit PRN PRN Administration Heparin Weight Based Protocol -Subsequent Bolus Protocol Insulin Human Lispro 0 unit 07/23/24 18:00 07/27/24 17:10 Insulin Lispro 100 Unit/1 Ml SUBCUT 2 unit WM&BEDTIME SAHIL Administration Protocol Non-Formulary Medication 900 mg 07/24/24 18:00 07/27/24 17:10 Ursodiol PO 900 mg QPM SAHIL Administration Non-Formulary Medication 600 mg 07/24/24 10:45 07/27/24 07:26 Ursodiol PO 600 mg DAILY SAHIL Administration Oxycodone/Acetaminophen 1 tab 07/23/24 17:06 07/27/24 18:02 Oxycodone-Apap 5-325 Mg Tablet PO 1 tab Q4H PRN Administration SEVERE PAIN Pantoprazole Sodium 40 mg 07/23/24 18:00 07/27/24 17:[address] 40 Mg Tablet PO 40 mg BID SAHIL Administration PFSH Acute PFSH: Medical History Hypertension Anticoagulation adequate with anticoagulant therapy Atrial fibrillation with controlled ventricular rate BPH (benign prostatic hyperplasia) Mass of right kidney Diabetes mellitus Acute cholecystitis Callus of foot Chronic ulcer of great toe of right foot, limited to breakdown of skin Hammertoe Peripheral arterial disease Diabetic peripheral neuropathy associated with type 2 diabetes mellitus Diabetes mellitus GERD (gastroesophageal reflux disease) Venous insufficiency Prostatitis, acute Acute cystitis with hematuria Surgical History Hx of cholecystectomy Status post right inguinal hernia repair Status post colonoscopy (12/13/20) descending colon polyp H/O esophagogastroduodenoscopy (12/13/20) normal Hx of tonsillectomy Family History Mother , AT AGE 73 Cancer COLON Father , AT AGE 50 Diabetes Social History Smoking and tobacco/nicotine status: former use of tobacco/nicotine Alcohol intake: current Alcohol intake frequency: holidays/special occasions only Marital status: Current occupational status: retired Vitals/I&O/Wt Last Vital Signs Temp 97.8 F 07/27/24 19:48 Pulse 105 H 07/27/24 19:48 Resp 18 07/27/24 19:48 BP 134/70 07/27/24 19:48 Pulse Ox 96 07/27/24 19:48 O2 Del Method Room Air 07/27/24 19:48 07/27/24 07/27/24 07/27/24 06:59 14:59 22:59 Intake Total 1102.567 / 2957.983 1369.25 / 1369.25 118.1 / 1487.35 Output Total 800 / 1050 2620 / 2620 950 / 3570 Balance 302.567 / 1907.983 -1250.75 / -1250.75 -831.9 / -2082.65 Weight last 48 hrs Weight 271 lb Weight 265 lb Weight 264 lb 2 oz Physical Exam Narrative: Abdominal examination is benign abdomen soft nontender. Right groin was not evaluated as he has a right hip fracture. On the left groin no anatomical abnormalities, bilateral neck is unremarkable. He has history of right carotid stent Urinary Catheter Management: Huber: Cath Placed During This Visit: yes Reason for Continuing Indwelling Catheter: Required Immobilization for Trauma or Surgery or Anesthesia Urinary Catheter Date of Insertion: 07/23/24 Data 07/27/24 06:00 07/27/24 15:49 A&P Assessment and plan (1) Anticoagulation adequate with anticoagulant therapy: (2) Atrial fibrillation with controlled ventricular rate: (3) Peripheral arterial disease: (4) Carotid stenosis, right: (5) CKD (chronic kidney disease): (6) Acute kidney injury superimposed on CKD: Plan After a complete history, physical examination and review of all available clinical data the following is my assessment. I have offer temporary dialysis catheter as a request by the nephrology medical team. During my discussion regarding risks and benefits of the procedure patient has indicated that he is a Confucianist and would like to avoid any procedure that can carry increased risk of bleeding as he will not be agreeable to proceed with blood transfusion if needed. I have explained that while at dialysis catheter insertion is usually well-tolerated related in his particular case since he is receiving a heparin drip and has been on dual antiplatelet therapy for carotid stent that was recently placed he is risk of bleeding is higher than the general population. I have also explained the risk of possible pneumothorax, injury to adjacent structures, catheter malfunction, infection, need for additional interventions. We have discussed also the indications for dialysis. After extensive discussion with the patient family members they are very hesitant to decide whether or not to proceed with dialysis. As a compromise they would like to wait until tomorrow morning to see if there is improvement on the laboratory workup as they will prefer to avoid the need for dialysis if possible. I have discussed with medical team they agreeable with the plan I have discussed with the family we will wait until the morning we will obtain a new set of labs and if needed general surgery will remain available to place dialysis catheter. Of note the heparin drip will be stopped around midnight as patient is also scheduled for the repair of his right hip fracture tomorrow. PDMP PDMP Reviewed: Not Reviewed Coding Level of Care Code Acute Code for Chg Fwd Diagnoses Anticoagulation adequate with anticoagulant therapy Z79.01 Atrial fibrillation with controlled ventricular rate I48.91 Peripheral arterial disease I73.9 Carotid stenosis, right I65.21 CKD (chronic kidney disease) N18.9 Acute kidney injury superimposed on CKD N17.9; N18.9
[2024-07-27] MEDS: citric acid-sodium citrate 30 mL UDC 60 ML PO (22:12)
--- NOTE | 2024-07-27 22:55 | PC.NURSE ---
during shift change day Nurse contacted Dr. Hall regarding pt heparin gtt. she was instructed to hold hep drip then and she stopped hep drip infusion. at 1999 social media community manager inform this nurse that Dr. Pinzon wanted hep drip resumed at the same rate before placed on hold due to possibility of needing dialysis cath placed in the AM and to stop again at 0[address]. at [address] Del Toro in pt room discussing placement of temporary dialysis port. pt and family wanted to discuss and conversation between Dr. Del Toro and . Myke resulted in continue hep drip until 0000 then stop. labs will be re-evaluated in the AM
[2024-07-28] VITALS (52 sets, daily range): BP systolic 65–254; BP diastolic 43–140; PULSE 82–163; RESP 6–21; TEMP 36.2–36.8; O2SAT 59–100
--- NOTE | 2024-07-28 | XR_ITS ---
WS: [id number] XR hip RT 2-3V wo/w pel* [id number] REASON FOR EXAM: Closed reduction with internal fixation right hip fracture FINDINGS: Short intramedullary alberto and large nail fixation of intertrochanteric fracture with medial displacement of the lesser trochanteric fragment. Surgical appliances are intact and in proper position and alignment. Fracture fragments are in good apposition and alignment. XR/XR hip RT 2-3V wo/w pel* [id number] IMPRESSION: Left hip fracture with internal fixation as above.
[2024-07-28 03:44] LABS: Basophils % 0.5 %; Eosinophils # 0.3 10^3/uL (0.0-0.8); Eosinophils % 2.9 %; Hematocrit 29.2 % (37-53); Lymphocytes # 1.1 10^3/uL (0.8-4.8); Lymphocytes % 12.3 %; Mean Corpuscular HGB Conc 32.9 g/dL (30-55); Mean Corpuscular Hemoglobin 30.6 pg (27-33); Mean Platelet Volume 9.2 fL (7.4-10.4); Monocytes # 1.6 10^3/uL (0.2-0.9); Monocytes % 18.5 %; Neutrophils # 5.37 10^3/uL (1.8-7.7); Neutrophils % 61.4 %; Nucleated Red Blood Cells % 0 %; Platelet Count 362 10^3/cmm (157-399); Red Blood Count 3.14 10^6/uL (3.85-5.65); Red Cell Distribution Width 14.7 % (12.1-15.1); White Blood Count 8.72 10^3/uL (3.29-11.43)
[2024-07-28 04:01] LABS: Alanine Aminotransferase 18 U/L (0-41); Albumin Level 2.7 g/dL (3.5-5.2); Alkaline Phosphatase 100 U/L (40-130); Anion Gap 19.3 (5-19); Aspartate Amino Transferase 25 U/L (0-40); Blood Urea Nitrogen 62 mg/dL (8-23); Calcium 8.2 mg/dL (8.5-10.5); Carbon Dioxide 19 mmol/L (22-29); Chloride 97 mmol/L (98-107); Creatinine Clr Calc Pharmacy 22.3185; Globulin 2.8 g/dL (1.3-4.6); Glucose 124 mg/dL (65-115); Osmolality Calculated 291 mOsm/kg (285-295); Potassium 4.3 mmol/L (3.5-5.1); Sodium 131 mmol/L (136-145); Total Bilirubin 0.6 mg/dL (0.15-1.2); Total Protein 5.5 g/dL (6.6-8.7)
[2024-07-28 06:15] LABS: Glucose Point of Care 187 mg/dL (70-110)
[2024-07-28] MEDS: pantoprazole DR 40 mg Tablet PO (08:14)
[2024-07-28] MEDS: URSODIOL 300 MG 600 EACH PO (08:14)
[2024-07-28] MEDS: atorvastatin 40 mg Tablet 80 MG PO (08:15)
[2024-07-28] MEDS: oxyCODONE-APAP 5-325 mg Tablet 1 TAB PO (08:15)
[2024-07-28] MEDS: cyclobenzaprine 10 mg Tablet 5 MG PO (08:15)
[2024-07-28] MEDS: aspirin 81 mg EC Tablet PO (08:16)
--- NOTE | 2024-07-28 08:59 | P.PN_ITS ---
Subjective 2 Subjective: SOB improved per pt Medications: Reviewed: Yes Vitals/I&O/Wt Last Vital Signs Temp 97.5 F L 07/28/24 07:47 Pulse 100 07/28/24 08:25 Resp 15 07/28/24 08:25 BP 154/81 07/28/24 07:47 Pulse Ox 95 07/28/24 08:25 O2 Del Method Room Air 07/28/24 08:25 07/27/24 07/28/24 07/28/24 22:59 06:59 14:59 Intake Total 118.1 / 1487.35 73.5 / 1560.85 0 / 0 Output Total 1700 / 4320 750 / 5070 Balance -1581.9 / -2832.65 -676.5 / -3509.15 0 / 0 Weight last 48 hrs Weight 120.202 kg Weight 122.924 kg Physical Exam 2 Narrative: awake , alert , no distress PEERLA S1S2 RRR Lung clear Abd soft , non tender No edema Urinary Catheter Management: Huber: Cath Placed During This Visit: yes Reason for Continuing Indwelling Catheter: Acute Urinary Retention or Obstruction Urinary Catheter Date of Insertion: 07/23/24 Data 07/28/24 03:37 07/28/24 03:37 A&P Assessment and plan (1) Acute kidney injury superimposed on CKD: Plan 1. Acute on chronic kidney disease stage III: Baseline creatinine in the 1.5-2 range, now has DANILO with a creatinine up to 3.3-in the setting of hypotension possibly ATN as well as IV contrast exposure on 07/23/2024. -Cr slightly better , responded to lasix so far and had 3L UOP, will give extra lasix today - No acute indication for dialysis today , will continue to monitor renal function closely post op , avoid IV contrast exposure if possible. Holding HCTZ/triamterene. - if continus to get worse , will discuss temporary HD 2. NSTEMI: On heparin drip 3. Hypertension: Was hypotensive on presentation, meds on hold 4. History of carotid artery stenosis and status post stenting recently in May 2024 5. Right hip fracture, followed by Ortho, plan for ORIF today Patient evaluated using audiovisual cart. Time spent 40 minutes PDMP PDMP Reviewed: Not Reviewed Attestations 2 Medical Necessity Statement*: per meiidne Coding Level of Care Code Acute Code for Chg Fwd Diagnoses Acute kidney injury superimposed on CKD N17.9; N18.9
[2024-07-28 10:41] LABS: Glucose Point of Care 165 mg/dL (70-110)
--- NOTE | 2024-07-28 13:34 | PM.PN ---
Subjective Subjective: seen this am Surgery was initially held off on today since there was plan for temporary dialysis as per patient's creatinine rising up to 4.6 yesterday evening. He did get 180 mg of Lasix yesterday to which he has responded really well to. Has had 3 L urine output overnight. Was 7 L positive since admission however now is 5 L positive since admission. General surgeon was consulted for dialysis catheter placement however patient and family declined placement of that secondary to risk of bleed being a Yarsani. Patient's is at bedside this morning along with a lot of family members. I answered questions to everyone satisfaction. Patient will remain at high risk of bleed secondary to being on aspirin and heparin and going for hip surgery today. Family is aware of that. They would like to discuss their concerns with orthopedic surgery prior to procedure. I have let Dr. Hall know that family would like to speak to him. Patient's creatinine has improved to 3.8, acidosis is also improving. Per nephrology it is okay to proceed to surgery at this time. Patient denies chest pain, shortness of breath. I discussed with Dr. Hall over the phone and patient will be proceeding to surgery today. He is NPO. Heparin drip has been off since 2 AM. Vitals/I&O/Wt Last Vital Signs Temp 98.1 F 07/28/24 11:26 Pulse 103 H 07/28/24 11:26 Resp 15 07/28/24 11:26 BP 123/68 07/28/24 11:26 Pulse Ox 96 07/28/24 11:26 O2 Del Method Room Air 07/28/24 11:26 07/27/24 07/28/24 07/28/24 22:59 06:59 14:59 Intake Total 118.1 / 1487.35 73.5 / 1560.85 0 / 0 Output Total 1700 / 4320 750 / 5070 650 / 650 Balance -1581.9 / -2832.65 -676.5 / -3509.15 -650 / -650 Weight last 48 hrs Weight 120.202 kg Weight 122.924 kg Physical Exam Narrative: General: No acute distress, AO x3 HEENT: PERRLA, pupils bilaterally equal and reactive, pallors not present Chest: Normal vesicular breath sounds, no added sounds, equal good air entry bilaterally CVS: S1-S2 regular, no murmurs, no tachycardia, no gallops, no rubs Abdomen: Soft, nontender, bowel sounds present Neuro: No focal deficits, no facial deformity, AO x3, Ext: Right LE shortened and externally rotated upper and lower extremities, trace edema present Urinary Catheter Management: Hbuer: Cath Placed During This Visit: yes Reason for Continuing Indwelling Catheter: Acute Urinary Retention or Obstruction Urinary Catheter Date of Insertion: 07/23/24 Data 07/28/24 03:37 07/28/24 03:37 A&P Assessment and plan (1) Intertrochanteric fracture: Presenting with fall and intertrochanteric fracture today. activity/limb immbolization instructions per ortho service Planned for OR intervention, therefore holding Xarelto and Plavix. Recommended per ortho to be off Plavix for 5 days before ORIF. Prn morphine, Oxy/APAP for pain control Patient is Taoist, does not accept blood products (2) Carotid artery stenosis with cerebral infarction: h/o recent symptomatic carotid artery stenosis with CVA s/p Right carotid stenting at [facility] in later may 2024. Discussed case with vascular surgery targeting acquisition officer at [facility] recommended to maintain anticogulation with Heparin gtt and antiplatelet coverage with Asa 81mg daily while Plavix and Xarelto remain on hold to minimize risk of CVA monitor serial Hb and platelet count high risk of CVA discussed with patient (3) Hypotension: hypotension ? suspect polypharmacy Hold antihypertensives for now prn hydralazine 10mg every 4 hrs if needed for SBP > 160 based on BP trend will resume home BP meds (4) Atrial fibrillation with controlled ventricular rate: continue carvedilol Hold xarelto a/c with heparin gtt to be stopped 4 hrs pre procedure recent echo from 04/2024 with EF 55-60% and mild pulm HTN. (5) Dysphagia: symptomatic several weeks planned for EGD outpatient recently but deferred in view of being on a/c protonix 40mg po BID for now Hb stable at 15 currently , monitor for any worsening of symptoms (6) Acute kidney injury superimposed on CKD: Plan DVT ppx: heparin gtt will suffice Full code July 24, 2024 Per Ortho patient to remain off of Plavix for 5 days prior to surgical intervention. Xarelto and Plavix are both currently on hold. In the interim he continues to be on heparin gtt. and aspirin 81 mg p.o. daily after discussion with vascular surgery at [facility] where his latest right carotid stent was placed in late May. Patient is currently tolerating the heparin and aspirin. Hemoglobin noted to be stable. Creatinine trending up to 2.2 today. Baseline creatinine range is between 1.5-2.0 previously. Poor urine output at 375 cc. Suspect this may be related to ATN from hypotension upon arrival. Currently has a Huber catheter in place. On maintenance IV fluids at 75 cc an hour. Closely monitor for signs of hypervolemia given that patient is chronically on Lasix HCTZ and triamterene at home for history of diastolic CHF. Currently blood pressure is well-maintained. Continue to hold antihypertensives with the exception of carvedilol. Renal consult will be obtained. Renal imaging from July 23, 2024 without any hydronephrosis or stones. 07/25/2024 We will wait for 5 days prior to surgical intervention as per Ortho recommendations. Xarelto and Plavix both currently on hold. Continue heparin drip. ? Vascular surgery at [facility] was contacted. Continue on aspirin 81 daily. ? Creatinine trending up to 3.3 today. Most likely secondary to prerenal cause from hypotension. Continue maintenance fluid 75 cc/h. ? Continue to hold Lasix hydrochlorothiazide, try Motrin. Carvedilol was being continued however blood pressure is soft 99/61. I will hold that today as well. ? Consult nephrology. 07/26/2024 cr 4.6 nephro following continue to hctz continue heparin gtt plan for surgery 07/28 speech assessment complete: thickened liquids added coreg held 07/27/2024 seen today cr 4.6 continue heparin gtt plan for surgery 07/28 pt appears hypervolemic order lasix 60 IV x1 stop IV fluids sodium 128 today patients labs are worsening, renal function worsening mild acidosis will discuss with nephrology pt will need to be cleared from nephro standpoint for surgery hemoglobin 9.6 today. 15 at admission, 12 the next day... pt was dehydrated on admission check iron studies, suspect anemia due to renal dysfunction no gross bleeding present check fobt continue heparin gtt continue protonix 40 BID recheck BMP at 4 pm today 07/28/2024 Plan for surgery today Patient n.p.o. since midnight. Patient is status post 3 doses of 60 IV Lasix Creatinine 3.8 at this time. Per nephrology patient may require temporary dialysis in postoperative period. Echo from April 2024 shows normal EF. Patient does have history of diastolic dysfunction. He denies chest pain shortness of breath. Patient is a Yarsani. Will not accept any kind of blood products. Continue Protonix 40 IV twice daily Due to soft blood pressures secondary to pain medications will continue to hold Coreg at this time. Acidosis secondary to renal dysfunction slightly improving. Patient also received Bicitra 60 mL x 1 yesterday evening. Sodium improving. Hyponatremia secondary to hypervolemia Anemia most likely secondary to kidney dysfunction and hypervolemia most likely dilutional. No evidence of gross bleed. Hemoglobin 9.6. Patient is 5 L positive since admission. Reticulocyte count 3.3. Patient is status post 200 mg dose of IV iron. FOBT pending. Holding Lantus. Continue sliding scale insulin ? Patient had recent carotid stent placed. Will need to be on Plavix and Xarelto postop. In the interim we will use aspirin and heparin drip as per recommendations from vascular surgery at [facility]. Patient will require an additional 24 to 48 hours stay postop to ensure hemoglobin stable and supportive care. He will need rehab PDMP PDMP Reviewed: Not Reviewed Attestations Medical Necessity Statement*: Plan for surgical intervention for hip fracture. Diagnoses Closed displaced intertrochanteric fracture of left femur, initial encounter S72.142A Encounter type: initial encounter Fracture type: closed Fracture alignment: displaced Laterality: left Carotid artery stenosis with cerebral infarction I63.239 Hypotension I95.9 Atrial fibrillation with controlled ventricular rate I48.91 Dysphagia R13.10 Acute kidney injury superimposed on CKD N17.9; N18.9
--- NOTE | 2024-07-28 14:45 | PC.NURSE ---
Pt taken down to Pre Op at 1445.
--- NOTE | 2024-07-28 15:08 | W.PM.OPSUD ---
Surgery/Procedure H&P Update DATE OF PROCEDURE: July 28, 2024 DATE H&P PERFORMED: 07/23/24 H&P UPDATE INFORMATION: I have reviewed H&P completed within last 30 days, I have examined patient prior to procedure, No changes to prior documentation and Risks and benefits of the procedure reviewed PREOP DIAGNOSIS: Left intertrochanteric hip fracture PRIMARY INDICATION FOR PROCEDURE: Hip fracture PLANNED PROCEDURE: Operation Date: 07/28/24 14:20 Proposed Procedures p Trochanteric Femoral Nail(Left) - Ross Hall MD
--- NOTE | 2024-07-28 15:19 | ANES.PREANE2 ---
Pre-Anesthetic Assessment Height/Weight: Height 6 ft 2 in Weight 265 lb Temp Pulse Resp BP Pulse Ox O2 Del Method 98.1 F 103 H 15 123/68 96 Room Air 07/28/24 11:26 07/28/24 11:26 07/28/24 11:26 07/28/24 11:26 07/28/24 11:26 07/28/24 11:26 Preop Diagnosis: Left intertrochanteric hip fracture Operation Date: 07/28/24 14:20 Proposed Procedures p Trochanteric Femoral Nail(Left) - Ross Hall MD Was Beta Bam taken within 24 hours: Yes Was Clonidine taken within 24 hours: N/A Last intake: Intake Last Liquid Date 03/29/24 Last Liquid Time 23:00 Last Solid Date 07/27/24 Last Solid Time 17:30 Social No alcohol and No tobacco Exam alert, oriented x 3, clear to auscultation bilaterally and regular rate & rhythm Airway Submandibular: within normal limits Cervical ROM: within normal limits Mallampati: Class III Dentition: full Anesthetic Plan ASA status: 4 Anesthesia: General Other: History of PONV following carotid endarterectomy when he was on the way home NPO since yesterday evening Patient initially admitted 07/23/2024 for hip fracture. Surgery has been on hold because he takes Plavix and Xarelto at baseline History of hypertension on carvedilol Type 2 diabetes on insulin. Preop BS 165 Chronic hyponatremia noted. NA 131. Hospitalist initially thought patient needed dialysis but they state his numbers have been consistent. K+ 4.3 today Patient is a [employer], repeat if using all blood products. Will take albumin. 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 Patient is s/p carotid endarterectomy in April Echo performed in April showing EF of 55 to 60%. RVSP 35 to 40 mmHg Plan for general anesthesia Medications/Allergies Home Medications ?Medication ?Instructions ?Recorded ?Confirmed ?Last Taken ?Type pantoprazole 40 mg tablet,delayed 40 mg PO BID 11/19/20 07/23/24 06/09/24 History release fluticasone propionate 50 2 spray intranasal DAILY PRN Nasal 09/18/21 07/23/24 06/09/24 History mcg/actuation nasal Congestion spray,suspension glipizide 10 mg tablet, extended 10 mg PO DAILY 09/18/21 07/23/24 06/10/24 History release 24 hr triamterene 75 1 tab PO DAILY 12/18/21 07/23/24 06/09/24 History mg-hydrochlorothiazide 50 mg tablet furosemide 20 mg tablet (Lasix) 20 mg PO DAILY PRN Edema 11/16/23 07/23/24 06/10/24 History carvedilol 12.5 mg tablet 12.5 mg PO BID #180 tabs 03/28/24 07/23/24 06/10/24 Rx hydralazine 25 mg tablet 25 mg PO BID #180 tabs 03/28/24 07/23/24 05/17/24 Rx multivitamin (Multiple Vitamins 1 tab PO DAILY 03/28/24 07/23/24 06/09/24 History tablet) insulin glargine 100 unit/mL (3 35 unit SUBCUT BID 05/17/24 07/23/24 06/09/24 History mL) subcutaneous pen (Lantus Solostar U-100 Insulin) lisinopril 20 mg tablet 20 mg PO DAILY 05/17/24 07/23/24 06/10/24 History rosuvastatin 40 mg tablet 40 mg PO DAILY #30 tabs 05/18/24 07/23/24 06/10/24 Rx potassium chloride 10 mEq 10 meq PO BID 06/10/24 07/23/24 06/10/24 History tablet,extended release rivaroxaban 20 mg tablet (Xarelto) See Rx Instructions .Route 07/18/24 07/23/24 Unknown Rx .COMPLEX #30 tabs albuterol sulfate 90 mcg/actuation 2 puff inhalation .Q4-6H 07/23/24 07/23/24 Unknown History aerosol inhaler clopidogrel 75 mg tablet 75 mg PO DAILY 07/23/24 07/23/24 Unknown History escitalopram oxalate 10 mg tablet 10 mg PO QPM 07/23/24 07/23/24 Unknown History prednisone 20 mg tablet 40 mg PO DAILY 07/23/24 07/23/24 Unknown History ursodiol 300 mg capsule 1,500 mg PO DAILY 07/23/24 07/23/24 Unknown History Allergies Allergy/AdvReac Type Severity Reaction Status Date / Time lovastatin Allergy RASH Verified 05/17/24 11:31 blood Allergy Unknown Jehovah's Uncoded 07/23/24 20:01 witness Current Medications Generic Name Dose Route Start Last Admin Trade Name Freq PRN Reason Stop Dose Admin Aspirin 81 mg 07/24/24 09:00 07/28/24 08:16 Aspirin 81 Mg Ec Tablet PO 81 mg On Hold: 07/28/24 14:49 DAILY SAHIL Administration Comment: Order held by Process Transfer Atorvastatin Calcium 80 mg 07/24/24 09:00 07/28/24 08:15 Atorvastatin 40 Mg Tablet PO 80 mg On Hold: 07/28/24 14:49 DAILY SAHIL Administration Comment: Order held by Process Transfer Carvedilol 12.5 mg 07/23/24 18:00 07/25/24 07:55 Carvedilol 12.5 Mg Tablet PO 12.5 mg On Hold: 07/25/24 13:39 BID SAHIL Administration Cyclobenzaprine HCl 5 mg 07/23/24 17:13 07/28/24 08:15 Cyclobenzaprine 10 Mg Tablet PO 5 mg On Hold: 07/28/24 14:49 TID PRN Administration Comment: Order held by Process MUSCLE SPASMS Transfer Escitalopram Oxalate 10 mg 07/23/24 18:00 07/27/24 17:10 Escitalopram 10 Mg Tablet PO 10 mg On Hold: 07/28/24 14:49 QPM SAHIL Administration Comment: Order held by Process Transfer Heparin Sodium (Porcine) 0 unit 07/23/24 19:39 07/27/24 14:26 Heparin 5,000 Unit/Ml Inj 1 Ml IVP 4,400 unit On Hold: 07/28/24 14:49 PRN PRN Administration Comment: Order held by Process Heparin Weight Based Protocol -Subsequent Bolus Transfer Protocol Heparin Sodium/Sodium Chloride 25,000 unit in 500 mls @ 0 mls/hr 07/27/24 20:15 07/28/24 08:11 Heparin Drip IV Infused On Hold: 07/28/24 00:00 CONT SAHIL Titration Protocol Per Protocol Insulin Human Lispro 0 unit 07/23/24 18:00 07/28/24 11:28 Insulin Lispro 100 Unit/1 Ml SUBCUT Not Given On Hold: 07/28/24 14:49 WM&BEDTIME SAHIL Comment: Order held by Process Protocol Transfer Non-Formulary Medication 900 mg 07/24/24 18:00 07/27/24 17:10 Ursodiol PO 900 mg On Hold: 07/28/24 14:49 QPM SAHIL Administration Comment: Order held by Process Transfer Non-Formulary Medication 600 mg 07/24/24 10:45 07/28/24 08:14 Ursodiol PO 600 mg On Hold: 07/28/24 14:49 DAILY SAHIL Administration Comment: Order held by Process Transfer Oxycodone/Acetaminophen 1 tab 07/23/24 17:06 07/28/24 08:15 Oxycodone-Apap 5-325 Mg Tablet PO 1 tab On Hold: 07/28/24 14:49 Q4H PRN Administration Comment: Order held by Process SEVERE PAIN Transfer Pantoprazole Sodium 40 mg 07/23/24 18:00 07/28/24 08:[address] 40 Mg Tablet PO 40 mg On Hold: 07/28/24 14:49 BID SAHIL Administration Comment: Order held by Process Transfer [facility] Anesthesia Medical History Hypertension Anticoagulation adequate with anticoagulant therapy Atrial fibrillation with controlled ventricular rate BPH (benign prostatic hyperplasia) Mass of right kidney Diabetes mellitus Acute cholecystitis Callus of foot Chronic ulcer of great toe of right foot, limited to breakdown of skin [place] Peripheral arterial disease Diabetic peripheral neuropathy associated with type 2 diabetes mellitus Diabetes mellitus GERD (gastroesophageal reflux disease) Venous insufficiency Prostatitis, acute Acute cystitis with hematuria Surgical History Hx of cholecystectomy Status post right inguinal hernia repair Status post colonoscopy (12/13/20) descending colon polyp H/O esophagogastroduodenoscopy (12/13/20) normal Hx of tonsillectomy Family History Mother , AT AGE 73 Cancer COLON Father , AT AGE 50 Diabetes Social History Smoking and tobacco/nicotine status: former use of tobacco/nicotine Alcohol intake: current Alcohol intake frequency: holidays/special occasions only Marital status: Current occupational status: retired Data Anesthesia 07/28/24 03:37 07/28/24 03:37 Short CBC 07/27/24 07/28/24 Range/Units 06:00 03:37 WBC 8.35 8.72 (3.29-11.43) 10^3/uL Hgb 9.60 L 9.60 L (11.27-16.99) g/dL Hct 28.9 L 29.2 L (37-53) % MCV 93.5 93.0 (82-101) fl Plt Count 311 362 (157-399) 10^3/cmm Neut % (Auto) 65.7 61.4 % Neut # (Auto) 5.48 5.37 (1.8-7.7) 10^3/uL BMP 07/27/24 07/27/24 07/28/24 06:00 15:49 03:37 Sodium 128 L 128 L 131 L Potassium 4.6 4.4 4.3 Chloride 96 L 97 L 97 L Carbon Dioxide 17 L 16 L 19 L BUN 61 H 61 H 62 H Creatinine 4.5 H 4.0 H 3.8 H Glucose 112 138 H 124 H Calcium 7.8 L 7.9 L 8.2 L Liver Function 07/28/24 Range/Units 03:37 Total Bilirubin 0.6 (0.15-1.2) mg/dL AST 25 (0-40) U/L ALT 18 (0-41) U/L Alkaline Phosphatase 100 (40-130) U/L Albumin 2.7 L (3.5-5.2) g/dL Blood Bank 07/28/24 12:48 Blood Type O Positive Rho(D) Type Rh positive Antibody Screen Negative Coags 07/26/24 07/26/24 07/26/24 16:59 18:01 23:12 APTT 54.4 H 21.5 L D 84.9 H D 07/27/24 07/27/24 06:00 12:07 APTT 62.9 H 43.0 H Cardiac Studies: Echocardiogram 05/17/24 Echocardiogram Limited Views 11/20/22 Sestamibi Stress Test (Cardiology) 05/21/23
[2024-07-28] MEDS: ceFAZolin 2,000 mg SDV 2000 MG IVP ×2 (15:33→22:52)
[2024-07-28] MEDS: sodium chloride 0.9% 1,000 ML 30 ML IV (15:39)
--- NOTE | 2024-07-28 17:40 | ECG_ITS ---
[facility] Test Date: 2024-07-28 Pat Name: Andrés Dumont Department: Room: 257 Gender: Male Customer Specialist: : 1945 Requested By: Haseeb Nair Order Number: [id number] Twila MD: Duane Mccullough M.D. Measurements Intervals [place] Rate: 103 P: 0 UT: 0 QRS: -43 QRSD: 94 T: 81 QT: 349 QTc: 459 Interpretive Statements ATRIAL FIBRILLATION WITH RAPID VENTRICULAR RESPONSE LOW QRS VOLTAGE IN EXTREMITY LEADS [QRS DEFLECTION < 0.5 mV IN LIMB LEADS] PATTERN CONSISTENT WITH PULMONARY DISEASE SEPTAL MYOCARDIAL INFARCTION , PROBABLY OLD [40+ ms Q WAVE IN V1/V2] INFERIOR MYOCARDIAL INFARCTION , PROBABLY OLD [40+ ms Q WAVE AND/OR ST/T ABNORMALITY IN II/aVF] Compared to ECG 07/23/2024 13:33:21 No significant changes Electronically Signed On 07-29-2024 13:36:51 CDT by Duane Mccullough M.D. [email or web address]
--- NOTE | 2024-07-28 17:43 | P.OP_ITS ---
Operative Report Date of procedure: July 28, 2024 Surgeon: Ross Hall MD Procedure: Preoperative diagnosis: Intertrochanteric hip fracture on the right Postoperative diagnosis same Procedure: Closed reduction with internal fixation right hip fracture Surgeon: Ross Hall MD Anesthesia: General EBL: 250 cc Complications: None Indications: Andrés is a 79-year-old white male who was admitted through the ED on 07/24/2024 with a fractured right hip. He had recently had a stent placed in carotid artery was on blood thinners including Xarelto and Plavix. Patient was admitted to the hospitalist service and orthopedic consultation was obtained. After initial evaluation is felt the patient would most benefit from internal fixation of his hip fracture however due to the DVT prophylaxis that he was on there is a need to wait 5 days for the Plavix to clear. All risk benefits and treatment alternatives been discussed with he and his family. They are adamant that they do not want any blood products due to the fact that they are Jehovah's Witnesses. I have agreed to honor their wishes at this time. However we have discussed risks that go along with this. Procedure: After obtaining written consent patient was taken to the operating room and while still on his hospital bed had general anesthetic administered. Once good anesthesia achieved patient placed over the fracture table and positioned appropriately. Right leg was placed under traction boot left leg was padded appropriately in a leg stirrup. Patient was secured to the bed. Interoperative fluoroscopy at this time was used to reduce the fracture under gentle manipulation and rotation of the leg. Right hip and leg were then prepped and draped usual fashion. After surgical timeout the upper portion of greater trochanter was identified through fluoroscopy and an incision was made directly lateral above this. Sharp dissectionwas taken all the way down to deep structures and through the IT band. Further dissection was done distally in or elva to palpate the fracture line. A [place] elevator was used to help reduce the fracture further at this point. Subsequently bone all was driven into the tip of the greater trochanter and guide alberto was placed on down through the upper fragments and down into the femoral shaft. This confirmed under fluoroscopic evaluation. Once in place proximal femur was reamed. Subsequently a size 10 short trochanteric nail was used. It was placed on the drill guide and slid down over the guide alberto and positioned under fluoroscopic guidance. Once in place lag screw drill guide was placed into the apparatus and stab wound was made on the lateral side of the thigh. This is placed up against the lateral femoral cortex. Guidepin was placed up into the femoral neck and head in appropriate position on both AP and lateral views. Is measured to 120 mm lag screw. Therefore it was reamed that deep. A lag screw was placed up over the guidewire and locked in place. Compression of the using the device was then used to compress the fracture site. Locking screw was placed proximally the locked the lag screw in place. Distal locking screw guide was placed through the drill guide and stab wound through the lateral thigh down to the cortex. This was drilled and measured and a size 40 bicortical screw was placed with good fixation. The drill guide was removed. Interoperative fluoroscopy pictures demonstrated adequate reduction and fixation of the fracture. Wounds were washed with copious amounts of sterile irrigation. Deep fascia was reapproximated [id number] sutures of 0 Vicryl. Subcutaneous was reapproximated 0 Vicryl interrupted sutures. And skin was closed with skin alissa. Wounds were then cleaned and dried dressed with Silverlon dressings. Patient was awakened and placed back onto his hospital bed and taken to the PACU.
[2024-07-28 17:56] LABS: Basophils # 0.1 10^3/uL (0.0-0.1); Basophils % 0.7 %; Eosinophils # 0.5 10^3/uL (0.0-0.8); Eosinophils % 3.3 %; Hematocrit 27.6 % (37-53); Lymphocytes # 3.4 10^3/uL (0.8-4.8); Lymphocytes % 22.8 %; Mean Corpuscular Hemoglobin 31.3 pg (27-33); Mean Corpuscular Volume 94.8 fl (82-101); Mean Platelet Volume 9.6 fL (7.4-10.4); Monocytes # 2.4 10^3/uL (0.2-0.9); Monocytes % 16.2 %; Neutrophils # 7.48 10^3/uL (1.8-7.7); Neutrophils % 50.7 %; Nucleated Red Blood Cells % 0 %; Platelet Count 485 10^3/cmm (157-399); Red Blood Count 2.91 10^6/uL (3.85-5.65); Red Cell Distribution Width 15.2 % (12.1-15.1); White Blood Count 14.72 10^3/uL (3.29-11.43)
--- NOTE | 2024-07-28 18:08 | USCV_ITS ---
Andrés Dumont Age: 79 Gender: M : 1945 Exam Date: 07/28/2024 20:27 Ordering Phys: Kirsten Pinzon MD Technologist: GERMAINE Exam Location: [facility] [place] Indication: RIGHT hip fracture post-op, post cardiac catheterization. BP: 101 / 80 HR: 81 Rhythm: Atrial fibrillation with erratic rhythm Technical Quality: Adequate MEASUREMENTS (Male / Female) Normal Values 2D ECHO LV Diastolic Diameter PLAX 3.4 cm 4.2 - 5.9 / 3.9 - 5.3 cm IVS Diastolic Thickness 1.8 cm 0.6 - 1.0 / 0.6 - 0.9 cm IVS Systolic Thickness 2.0 cm LVPW Diastolic Thickness 1.6 cm 0.6 - 1.0 / 0.6 - 0.9 cm LVPW Systolic Thickness 2.0 cm LVOT Diameter 1.9 cm LV Ejection Fraction 2D Teich 65.2 % LV Ejection Fraction MOD 4C 68.2 % LV Ejection Fraction MOD 2C 40.6 % LV Ejection Fraction 2C AL 40.2 % LA Diameter 5.5 cm Aorta at Sinotubular Diameter 3.0 cm IVC Diameter 1.6 cm M-MODE LA Ao Ratio MM 1.7 AV Cusp Separation MM 1.9 cm DOPPLER AV Peak Velocity 142.0 cm/s LVOT Peak Velocity 137.0 cm/s AV Area Cont Eq vti 2.2 cm squared AV Area Cont Eq pk 2.7 cm squared MV Peak Velocity 107.0 cm/s MV Area PHT 4.4 cm squared Mitral E to A Ratio 241.0 TV Peak Velocity 275.5 cm/s TR Peak Velocity 277.0 cm/s TR Peak Gradient 30.7 mmHg TV Peak E Velocity 50.0 cm/s PV Peak Velocity 97.0 cm/s FINDINGS Left Ventricle Left ventricle is normal in size. LV systolic normal with EF of 55-60%. No regional wall motion abnormalities are seen. Right Ventricle Normal in size and function Right Atrium Normal in size Left Atrium Normal in size Mitral Valve Structurally normal mitral valve. Trace mitral regurgitation. Aortic Valve Grossly normal aortic valve. Mild aortic regurgitation. No significant stenosis. Tricuspid Valve Mild tricuspid regurgitation. RVSP is 35-40mmHg. This is consistent with mild pulmonary hypertension Pulmonic Valve Not well visualized Pericardium Normal Aorta Normal in size IVC Appears to be normal CONCLUSIONS LV systolic function is normal with EF of 55-60% Trace mitral regurgitation Mild aortic regurgitation Mild tricuspid regurgitation Mild pulmonary hypertension Compared to prior echocardiogram from 04/2024 no significant changes are seen Duane Mccullough MD (Electronically Signed) Final Date: 29 Jul 2024 09:54 S
[2024-07-28 18:09] LABS: Alanine Aminotransferase 14 U/L (0-41); Alkaline Phosphatase 84 U/L (40-130); Anion Gap 18.5 (5-19); Aspartate Amino Transferase 18 U/L (0-40); Blood Urea Nitrogen 62 mg/dL (8-23); Calcium 8.6 mg/dL (8.5-10.5); Carbon Dioxide 20 mmol/L (22-29); Chloride 101 mmol/L (98-107); Creatinine Clr Calc Pharmacy 26.2103; Globulin 2.3 g/dL (1.3-4.6); Glucose 134 mg/dL (65-115); Osmolality Calculated 300 mOsm/kg (285-295); Potassium 4.5 mmol/L (3.5-5.1); Sodium 135 mmol/L (136-145); Total Bilirubin 0.7 mg/dL (0.15-1.2); Total Protein 5.3 g/dL (6.6-8.7)
--- NOTE | 2024-07-28 18:11 | SUR.PHASEI ---
When pt arrived in PACU he was hypotensensive, DURAN Huang went to the OR to get medication, the pt O2 sat began to drop, simple masked placed on the pt, Dr. Sweet and DURAN Huang at bedside when pt became unresponsive. See anesthesia note for medications given at bedside. Pt moved to ICU when awake and stable.
--- NOTE | 2024-07-28 18:18 | PM.OP2 ---
Brief Operative Note Date of procedure: 07/28/24 Complications: Upon arrival to the PACU, patient was mildly hypotensive requiring a small bump of phenylephrine. APPLICATION SUPPORT TECHNICIAN went to obtain calcium from the OR and upon return to PACU patient appeared to have pale skin and appeared to not be moving any air. I was at bedside as well. Patient's radial and carotid pulses were thready. Blood pressure immediately obtained with systolics in the 60s. EKG with artifact at the time and hard to read. Jaw thrust with Ambu bag was immediately performed. 0.3 of calcium was given at 1720. As well as 0.2 mg of epi. Blood pressure immediately improved with improvement of peripheral pulses. After a few minutes patient began breathing spontaneously. 1 g of mag was given at 1735 as well as 60 mg of lidocaine due to rapid heart rate. EKG obtained showing A-fib with RVR. Labs have been sent off. Spoke to housekeeper requesting an ICU bed. Patient is currently requiring phenylephrine gtt. at 60 mics per minute. I spoke with family and made them aware of the situation. Patient lost about 350 mL of blood IntraOp which is well below the ABL threshold. Currently do not have an exact reason for this event but will wait for lab work to return and monitor closely. Hospitalist is aware Coding Level of Care Code Acute Code for Chg Fwd
[2024-07-28 18:39] LABS: Slide Review Slide Review Perform
--- NOTE | 2024-07-28 18:41 | XRR_ITS ---
PROCEDURE INFORMATION: Exam: XR Chest Exam date and time: 07/28/2024 6:44 PM Age: 79 years old Clinical indication: Shortness of breath; Additional info: SOB TECHNIQUE: Imaging protocol: Radiologic exam of the chest. Views: 1 view. COMPARISON: CR (CHEST, ) 07/23/2024 1:32 PM FINDINGS: Lungs: Mild central pulmonary vasculature congestive changes. Left lung base opacity can reflect effusion with adjacent compressive atelectasis or prominent epicardial fat. The right lung is relatively clear. Pleural spaces: No sizable pleural effusion or pneumothorax. Heart/Mediastinum: Mild cardiomegaly. Bones/joints: Unremarkable. XR/XR chest 1V [id number] IMPRESSION: As above.
[2024-07-28] MEDS: chlorhexidine gluconate 0.12% Btl 473 mL 30 ML MUCOUS MEM (20:21)
[2024-07-28] MEDS: sennosides-docusate Tablet 2 TAB PO (20:22)
[2024-07-28] MEDS: iron polysaccharide complex 150 mg Capsule PO (20:23)
[2024-07-28] MEDS: mupirocin oint 22 gm 1 APPLIC NASAL (20:24)
[2024-07-28] MEDS: calcium carbonate 500 mg Chew Tablet 1000 MG PO (20:24)
[2024-07-28] MEDS: amiodarone 150 MG/100 ML PREMIX 400 MG IV (20:32)
[2024-07-28 20:57] LABS: Glucose Point of Care 176 mg/dL (70-110)
[2024-07-28] MEDS: insulin lispro 100 unit/1 mL SUBCUT (21:40)
[2024-07-28] MEDS: norepinephrine 4 MG/250 ML BAG 7.5 MG IV (21:45)
--- NOTE | 2024-07-28 21:56 | PM.CONSULT ---
Providers/Reason For Consult Consulting Physician/Specialty*: Hermila Lovell MD Reason for Consult*: Shock Atrial fibrillation with rapid ventricular response Acute on chronic kidney disease History of diastolic heart failure Carotid artery disease Peripheral arterial disease History of atrial fibrillation rate controlled Requesting Physician: Dr. Pinzon Attending Physician: Kirsetn Pinzon MD Primary Care Provider: Humberto Griggs DO History of Present Illness History of Present Illness Andrés Dumont is a 79 year old male who is Religion admitted with intertrochanteric fracture noted to be volume overloaded with decompensated heart failure, patient was diuresed, after achieving euvolemia patient underwent internal fixation of the hip fracture, postoperative and recovery patient was noted to be hypotensive tachycardic with A-fib RVR, he was immediately given pressor and fluid along with albumin. We have been asked to assess the patient at the request of Dr. Gusman and anesthesia. I immediately saw the patient in the recovery when I saw him his systolic blood pressure was more than 104 while his heart rate stills hangs around 140, he was alert awake oriented not in distress. Twelve-lead EKG was consistent with atrial fibrillation otherwise no significant ST's ST changes suggestive of ischemia noted. Patient denies any chest pain or shortness of breath. Medications/Allergies Home Medications ?Medication ?Instructions ?Recorded ?Confirmed ?Last Taken ?Type pantoprazole 40 mg tablet,delayed 40 mg PO BID 11/19/20 07/23/24 06/09/24 History release fluticasone propionate 50 2 spray intranasal DAILY PRN Nasal 09/18/21 07/23/24 06/09/24 History mcg/actuation nasal Congestion spray,suspension glipizide 10 mg tablet, extended 10 mg PO DAILY 09/18/21 07/23/24 06/10/24 History release 24 hr triamterene 75 1 tab PO DAILY 12/18/21 07/23/24 06/09/24 History mg-hydrochlorothiazide 50 mg tablet furosemide 20 mg tablet (Lasix) 20 mg PO DAILY PRN Edema 11/16/23 07/23/24 06/10/24 History carvedilol 12.5 mg tablet 12.5 mg PO BID #180 tabs 03/28/24 07/23/24 06/10/24 Rx hydralazine 25 mg tablet 25 mg PO BID #180 tabs 03/28/24 07/23/24 05/17/24 Rx multivitamin (Multiple Vitamins 1 tab PO DAILY 03/28/24 07/23/24 06/09/24 History tablet) insulin glargine 100 unit/mL (3 35 unit SUBCUT BID 05/17/24 07/23/24 06/09/24 History mL) subcutaneous pen (Lantus Solostar U-100 Insulin) lisinopril 20 mg tablet 20 mg PO DAILY 05/17/24 07/23/24 06/10/24 History rosuvastatin 40 mg tablet 40 mg PO DAILY #30 tabs 05/18/24 07/23/24 06/10/24 Rx potassium chloride 10 mEq 10 meq PO BID 06/10/24 07/23/24 06/10/24 History tablet,extended release rivaroxaban 20 mg tablet (Xarelto) See Rx Instructions .Route 07/18/24 07/23/24 Unknown Rx .COMPLEX #30 tabs albuterol sulfate 90 mcg/actuation 2 puff inhalation .Q4-6H 07/23/24 07/23/24 Unknown History aerosol inhaler clopidogrel 75 mg tablet 75 mg PO DAILY 07/23/24 07/23/24 Unknown History escitalopram oxalate 10 mg tablet 10 mg PO QPM 07/23/24 07/23/24 Unknown History prednisone 20 mg tablet 40 mg PO DAILY 07/23/24 07/23/24 Unknown History ursodiol 300 mg capsule 1,500 mg PO DAILY 07/23/24 07/23/24 Unknown History Allergies Allergy/AdvReac Type Severity Reaction Status Date / Time lovastatin Allergy RASH Verified 05/17/24 11:31 blood Allergy Unknown Trisha's Uncoded 07/23/24 20:01 witness Current Medications Generic Name Dose Route Start Last Admin Trade Name Freq PRN Reason Stop Dose Admin Acetaminophen 1,000 mg 07/28/24 17:30 07/28/24 20:07 Acetaminophen 500 Mg Tablet PO Not Given Q8H SAHIL Atorvastatin Calcium 80 mg 07/24/24 09:00 07/28/24 08:15 Atorvastatin 40 Mg Tablet PO 80 mg DAILY SAHIL Administration Calcium Carbonate 1,000 mg 07/28/24 18:00 07/28/24 20:24 Calcium Carbonate 500 Mg Chew Tablet PO 1,000 mg BID SAHIL Administration Chlorhexidine Gluconate 30 ml 07/28/24 21:00 07/28/24 20:21 Chlorhexidine Gluconate 0.12% Btl 473 Ml MUCOUS MEM 30 ml QID SAHIL Administration Cyclobenzaprine HCl 5 mg 07/23/24 17:13 07/28/24 08:15 Cyclobenzaprine 10 Mg Tablet PO 5 mg TID PRN Administration MUSCLE SPASMS Escitalopram Oxalate 10 mg 07/23/24 18:00 07/27/24 17:10 Escitalopram 10 Mg Tablet PO 10 mg QPM SAHIL Administration Amiodarone HCl/Dextrose 360 mg in 200 mls @ 0 mls/hr 07/28/24 18:35 07/28/24 20:56 Nexterone IV 1 mg/min .Q0M SAHIL 33.33 mls/hr Protocol Administration Per Protocol Norepinephrine Bitartrate 4 mg in 250 mls @ 0 mls/hr 07/28/24 18:45 07/28/24 21:45 Levophed IV 2 mcg/min .Q0M SAHLI 7.5 mls/hr Protocol Administration Per Protocol Insulin Human Lispro 0 unit 07/23/24 18:00 07/28/24 21:40 Insulin Lispro 100 Unit/1 Ml SUBCUT 2 unit WM&BEDTIME [facility] Administration Protocol Mupirocin 1 applic 07/28/24 18:00 07/28/24 20:24 Mupirocin Oint 22 Gm NASAL 08/02/24 17:59 1 applic BID SAHIL Administration Protocol Non-Formulary Medication 900 mg 07/24/24 18:00 07/27/24 17:10 Ursodiol PO 900 mg QPM SAHIL Administration Non-Formulary Medication 600 mg 07/24/24 10:45 07/28/24 08:14 Ursodiol PO 600 mg DAILY SAHIL Administration Oxycodone/Acetaminophen 1 tab 07/23/24 17:06 07/28/24 08:15 Oxycodone-Apap 5-325 Mg Tablet PO 1 tab Q4H PRN Administration SEVERE PAIN Pantoprazole Sodium 40 mg 07/23/24 18:00 07/28/24 08:[address] 40 Mg Tablet PO 40 mg BID SAHIL Administration Polysaccharide Iron Complex 150 mg 07/28/24 18:00 07/28/24 20:23 Iron Polysaccharide Complex 150 Mg Capsule PO 150 mg BIDWM SAHIL Administration Senna/Docusate Sodium 2 tab 07/28/24 18:00 07/28/24 20:22 Sennosides-Docusate Tablet PO 2 tab BID SAHIL Administration PFSH Acute PFSH: Medical History Hypertension Anticoagulation adequate with anticoagulant therapy Atrial fibrillation with controlled ventricular rate BPH (benign prostatic hyperplasia) Mass of right kidney Diabetes mellitus Acute cholecystitis Callus of foot Chronic ulcer of great toe of right foot, limited to breakdown of skin [place]ertoe Peripheral arterial disease Diabetic peripheral neuropathy associated with type 2 diabetes mellitus Diabetes mellitus GERD (gastroesophageal reflux disease) Venous insufficiency Prostatitis, acute Acute cystitis with hematuria Surgical History Hx of cholecystectomy Status post right inguinal hernia repair Status post colonoscopy (12/13/20) descending colon polyp H/O esophagogastroduodenoscopy (12/13/20) normal Hx of tonsillectomy Family History Mother , AT AGE 73 Cancer COLON Father , AT AGE 50 Diabetes Social History Smoking and tobacco/nicotine status: former use of tobacco/nicotine Alcohol intake: current Alcohol intake frequency: holidays/special occasions only Marital status: Current occupational status: retired Vitals/I&O/Wt Last Vital Signs Temp 97.6 F 07/28/24 19:35 Pulse 109 H 07/28/24 21:46 Resp 16 07/28/24 21:46 BP 120/69 07/28/24 19:35 Pulse Ox 100 07/28/24 21:46 O2 Del Method Nasal Cannula 07/28/24 21:46 O2 Flow Rate 3 07/28/24 21:46 07/28/24 07/28/24 07/28/24 06:59 14:59 22:59 Intake Total 73.5 / 1560.85 0 / 0 0 / 0 Output Total 750 / 5070 1175 / 1175 300 / 1475 Balance -676.5 / -3509.15 -1175 / -1175 -300 / -1475 Weight last 48 hrs Weight 265 lb Weight 271 lb Physical Exam Const: OTHER: GENERAL: Patient is alert, awake and oriented x3. Not in acute distress HEART: Irregularly irregular S1 and S2. No murmur, rub or gallop. LUNGS: Decreased breath sound bilaterally, no crackles. CENTRAL NERVOUS SYSTEM: Grossly nonfocal. EXTREMITIES: Lower extremities with out edema bilaterally. Urinary Catheter Management: Huber: Cath Placed During This Visit: yes Reason for Continuing Indwelling Catheter: Acute Urinary Retention or Obstruction Urinary Catheter Date of Insertion: 07/23/24 Data 07/28/24 17:39 07/28/24 17:39 A&P Assessment and plan (1) Atrial fibrillation with controlled ventricular rate: (2) DANILO (acute kidney injury): (3) Shock: Plan Shock Atrial fibrillation with rapid ventricular response Acute on chronic kidney disease History of diastolic heart failure Carotid artery disease Peripheral arterial disease History of atrial fibrillation rate controlled Differential diagnosis could be broad however most likely this is a hypovolemic shock given some blood loss in the face of contracted intravascular volume secondary to diuresis in order to achieve euvolemic state before the surgery. Patient may have autonomic dysfunction as well given underlying chronic kidney disease. In perioperative period of hyperadrenergic state patient is exhibiting A-fib with rapid ventricular response which is also reducing the cardiac output due to tachycardia and reduced filling of the ventricle. Continue to monitor H&H, patient is Religion therefore no blood product will be given, will manage with IV fluid. Continue 100 mL of normal saline and titrated according to the blood pressure Continue IV pressor Since blood pressure has improved I will add IV amiodarone Once off the pressors and improve vital bella we will add beta-yany Limited echocardiogram will be obtained as well to rule out pericardial effusion or reduced ejection fraction with stress-induced cardiomyopathy once patient slows down. Patient will be admitted to ICU we will continue to monitor him there. PDMP PDMP Reviewed: Not Reviewed Coding Level of Care Code Acute Code for [facility] Fwd Diagnoses Atrial fibrillation with controlled ventricular rate I48.91 DANILO (acute kidney injury) N17.9 Shock R57.9
[2024-07-29] VITALS (44 sets, daily range): BP systolic 80–157; BP diastolic 45–100; PULSE 80–117; RESP 6–17; TEMP 36.1–36.8; O2SAT 94–100; BMI 33.5
[2024-07-29] MEDS: acetaminophen 500 mg Tablet 1000 MG PO ×3 (01:38→17:25)
[2024-07-29 04:01] LABS: Hematocrit 21.9 % (37-53); Mean Corpuscular Hemoglobin 30.6 pg (27-33); Mean Corpuscular Volume 95.6 fl (82-101); Mean Platelet Volume 9.7 fL (7.4-10.4); Platelet Count 416 10^3/cmm (157-399); Red Blood Count 2.29 10^6/uL (3.85-5.65); Red Cell Distribution Width 14.9 % (12.1-15.1); White Blood Count 12.68 10^3/uL (3.29-11.43)
[2024-07-29 04:22] LABS: Anion Gap 18.6 (5-19); Blood Urea Nitrogen 69 mg/dL (8-23); Calcium 7.9 mg/dL (8.5-10.5); Carbon Dioxide 19 mmol/L (22-29); Chloride 100 mmol/L (98-107); Creatinine Clr Calc Pharmacy 21.5059; Glucose 177 mg/dL (65-115); Magnesium 1.8 mg/dL (1.7-2.3); Osmolality Calculated 300 mOsm/kg (285-295); Potassium 4.6 mmol/L (3.5-5.1); Sodium 133 mmol/L (136-145)
[2024-07-29 04:43] LABS: Slide Review Slide Review Perform
[2024-07-29 04:44] LABS: Absolute Segmented Neutrophil 8.9 10/cmm (1.6-7.1); Eosinophils 0 %; Lymphocytes 11 %; Monocytes Absolute 1.8 10^3/cmm (0.1-0.6); Platelet Estimate Increased (Normal); Segmented Neutrophils 70 %; Total Cells Counted 100 (0-100)
[2024-07-29] MEDS: ceFAZolin 2,000 mg SDV 2000 MG IVP ×2 (07:34→16:57)
[2024-07-29] MEDS: iron polysaccharide complex 150 mg Capsule PO (07:34)
[2024-07-29] MEDS: HYDROcodone-acetaminophen 5-325 mg Tablet 1 TAB PO (07:34)
--- NOTE | 2024-07-29 07:42 | P.PN_ITS ---
Subjective 2 Subjective: Currently in ICU on low-dose Levophed Postoperatively patient went into rapid A-fib Urine output about 400 cc overnight Currently on room air Medications: Reviewed: Yes Vitals/I&O/Wt Last Vital Signs Temp 97.0 F L 07/29/24 04:45 Pulse 96 07/29/24 06:00 Resp 11 L 07/29/24 04:45 BP 82/63 07/29/24 04:45 Pulse Ox 98 07/29/24 04:45 O2 Del Method Room Air 07/29/24 04:45 O2 Flow Rate 2 07/29/24 00:00 07/28/24 07/29/24 07/29/24 22:59 06:59 14:59 Intake Total 4.875 / 4.875 823.896 / 828.771 Output Total 300 / 1475 400 / 1875 Balance -295.125 / -1470.125 423.896 / -1046.229 Weight last 48 hrs Weight 118.614 kg Weight 120.202 kg Physical Exam 2 Narrative: awake , alert , no distress PEERLA S1S2 RRR Lung clear Abd soft , non tender No edema Urinary Catheter Management: Huber: Cath Placed During This Visit: yes Reason for Continuing Indwelling Catheter: Accurate Measurement of Urinary Output in Critically Ill Patients Urinary Catheter Date of Insertion: 07/23/24 Data 07/29/24 03:29 07/29/24 03:29 A&P Assessment and plan (1) Acute kidney injury superimposed on CKD: Plan 1. Acute on chronic kidney disease stage III: Baseline creatinine in the 1.5-2 range, now has DANILO with a creatinine up to 3.3-in the setting of hypotension possibly ATN as well as IV contrast exposure on 07/23/2024. -Cr sfluctuates in 3 range , giving PRN IV lasix - No acute indication for dialysis today , will continue to monitor renal function closely, avoid IV contrast exposure if possible. Holding HCTZ/triamterene. - if renal fxn gets worse , will discuss temporary HD 2. NSTEMI: On heparin drip 3. Hypertension: Was hypotensive on presentation, meds on hold 4. History of carotid artery stenosis and status post stenting recently in May 2024 5. Right hip fracture, followed by Ortho, plan for ORIF today Patient evaluated using audiovisual cart. Time spent 40 minutes PDMP PDMP Reviewed: Not Reviewed Attestations 2 Medical Necessity Statement*: per jenifernd Coding Level of Care Code Acute Code for [facility] Fwd Diagnoses Acute kidney injury superimposed on CKD N17.9; N18.9
[2024-07-29] MEDS: cholecalciferol (vitamin D3) 1,000 unit Tablet 1000 UNIT PO (08:18)
[2024-07-29] MEDS: calcium carbonate 500 mg Chew Tablet 1000 MG PO ×2 (08:18→17:26)
[2024-07-29] MEDS: multivitamin therapeutic Tablet 1 TAB PO (08:18)
[2024-07-29] MEDS: insulin lispro 100 unit/1 mL SUBCUT ×4 (08:18→21:10)
[2024-07-29] MEDS: atorvastatin 40 mg Tablet 80 MG PO (08:18)
[2024-07-29] MEDS: mupirocin oint 22 gm 1 APPLIC NASAL ×2 (08:23→17:27)
[2024-07-29] MEDS: chlorhexidine gluconate 0.12% Btl 473 mL 30 ML MUCOUS MEM ×3 (08:23→17:02)
[2024-07-29] MEDS: pantoprazole DR 40 mg Tablet PO ×2 (08:30→17:25)
[2024-07-29] MEDS: sennosides-docusate Tablet 2 TAB PO ×2 (08:30→17:25)
[2024-07-29] MEDS: URSODIOL 300 MG 600 EACH PO (08:33)
--- NOTE | 2024-07-29 08:57 | CT_ITS ---
WS: [id number] Noncontrast CT RIGHT hip TECHNIQUE: Noncontrast CT RIGHT hip with coronal and sagittal reformatted images. CLINICAL INFORMATION: post-op bleeding? COMPARISON: None. DLP: 657.[address] scans at [facility] use at least one of these dose optimization techniques: automated exposure control; mA and/or kV adjustment per patient size (includes targeted exams where dose is matched to clinical indication); or iterative reconstruction. FINDINGS: Recent postoperative changes femoral alberto and screw fixation repair of markedly comminuted RIGHT hip fracture. Avulsion of the lesser trochanter similar to the preoperative study. Hardware appears in good position. Diffuse soft tissue edema about the hip. Postoperative changes with a small amount of postoperative air. No evidence of abscess or fluid collection. No evidence of active hemorrhage or large hematoma. Vascular calcification. Huber catheter. CT/CT hip RT wo con* [id number] IMPRESSION: 1. No evidence of active hemorrhage or large hematoma. Expected postoperative changes about the RIGHT hip.
[2024-07-29] MEDS: iron sucrose 200 MG in sodium chloride 0.9% (100 ml) 100 ML 220 MG IV (09:46)
--- NOTE | 2024-07-29 09:51 | PC.SOCIAL ---
IMM Updated Updated pt on IMM. No questions voiced. Provided pt a copy. Initialed, dated, & timed copy in chart.
--- NOTE | 2024-07-29 11:10 | P.PN_ITS ---
<Statement entered by Hermila Lovell MD - 07/29/24 18:20> Today feeling feeling better he is off the pressor he remains in A-fib but heart rate is under control he started eating drinking GENERAL: Patient is alert, awake and oriented x3. HEART: Regular S1 and S2. No murmur, rub or gallop. LUNGS: Clear to auscultate bilaterally. CENTRAL NERVOUS SYSTEM: Grossly nonfocal. EXTREMITIES: Lower extremities with out edema bilaterally. Shock most likely hypovolemic with combination of blood loss Atrial fibrillation with rapid regular S1 Continue to monitor hemoglobin Continue IV amiodarone, will switch to 200 mg p.o. twice daily from tomorrow Hold anticoagulation Subjective 2 Subjective: Overnight has done well, Levophed infusion being weaned. He remains on amiodarone infusion 0.5 mg. Hemoglobin noted 7 this morning, he has been diuresed as well as had some surgical blood loss. He is a Yazidism. Will plan to hold aspirin and Plavix, recheck hemoglobin and resume Plavix tomorrow depending on labs. Will add metoprolol 12.5 mg twice a day for rate control, he is in atrial fibrillation with ventricular rates 90-100 bpm. Vitals/I&O/Wt Last Vital Signs Temp 97.3 F L 07/29/24 08:00 Pulse 95 07/29/24 10:00 Resp 13 07/29/24 10:00 BP 140/66 07/29/24 10:00 Pulse Ox 96 07/29/24 10:00 O2 Del Method Room Air 07/29/24 10:00 O2 Flow Rate 2 07/29/24 00:00 07/28/24 07/29/24 07/29/24 22:59 06:59 14:59 Intake Total 4.875 / 833.334 823.896 / 833.334 304.563 / 304.563 Output Total 300 / 1875 400 / 1875 Balance -295.125 / -1041.666 423.896 / -1041.666 304.563 / 304.563 Weight last 48 hrs Weight 261 lb 8 oz Weight 265 lb Physical Exam 2 Const: COMMON NORMALS: no acute distress and patient oriented x3 Chest: COMMONS NORMALS: normal inspection of the chest and normal palpation of entire chest wall CHEST: Yes Symmetrical chest wall rise Resp: COMMON NORMALS: normal respiratory effort, No retractions, No use of accessory muscles and clear to auscultation bilaterally EFFORT & INSPECTION: Yes symmetric chest movement AUSCULTATION: clear to auscultation bilaterally Cardio: COMMON NORMALS: S1 normal heart sound present, S2 normal heart sound present, No gallops present (Cardio), No clicks present (Cardio), No murmurs present (Cardio) and No rub (Cardio) RHYTHM: abnormal rhythm irregularly irregular HEART SOUNDS: S1 normal heart sound present and S2 normal heart sound present PERIPHERAL PULSES: radial pulses present, posterior tibial pulses present and dorsalis pedis present Neuro: COMMON NORMALS: patient oriented x3 and moves all extremities Psych: COMMON NORMALS: mental status grossly normal and cooperative Urinary Catheter Management: Huber: Cath Placed During This Visit: yes Reason for Continuing Indwelling Catheter: Accurate Measurement of Urinary Output in Critically Ill Patients Urinary Catheter Date of Insertion: 07/23/24 Data 07/29/24 03:29 07/29/24 03:29 A&P Assessment and plan (1) Atrial fibrillation with controlled ventricular rate: (2) Shock: Plan Will add on low-dose beta-yany for ventricular rate control, check limited echocardiogram to evaluate LV function. Monitoring blood pressure closely. Continue amiodarone at 0.5 for the next 15 hours then may transition to oral amiodarone depending on rate control No blood products will be given as patient is Yazidism. Monitor hemoglobin. He does not appear volume overloaded. PDMP PDMP Reviewed: Not Reviewed Attestations 2 Medical Necessity Statement*: Shock, postoperative state, atrial fibrillation with RVR. Coding Level of Care Code Acute Code for [facility] Fwd Diagnoses Atrial fibrillation with controlled ventricular rate I48.91 Shock R57.9
--- NOTE | 2024-07-29 11:16 | USCV_ITS ---
Andrés Dumont Age: 79 Gender: M : 1945 Exam Date: 07/29/2024 15:17 Ordering Phys: Crystal Parada Technologist: Exam Location: [facility] [place] Indication: ef BP: 119 / 56 HR: Rhythm: Sinus Technical Quality: Adequate MEASUREMENTS (Male / Female) Normal Values 2D ECHO LV Diastolic Diameter PLAX 4.3 cm 4.2 - 5.9 / 3.9 - 5.3 cm IVS Diastolic Thickness 1.5 cm 0.6 - 1.0 / 0.6 - 0.9 cm IVS Systolic Thickness 1.9 cm LVPW Diastolic Thickness 1.4 cm 0.6 - 1.0 / 0.6 - 0.9 cm LVPW Systolic Thickness 1.8 cm LVOT Diameter 1.5 cm LV Ejection Fraction 2D Teich 64.1 % LV Ejection Fraction MOD 4C 72.8 % LV Ejection Fraction MOD 2C 61.4 % LV Ejection Fraction 2C AL 58.9 % RA Systolic Volume 4C AL 38.3 ml RA Systolic Volume 4C MOD 36.0 ml IVC Diameter 2.0 cm FINDINGS Left Ventricle Possibly normal LV size and ejection fraction around 61%. Right Ventricle Normal right ventricular size and systolic function. Right Atrium Right atrium not well visualized. Left Atrium Mildly increased left atrial size. Mitral Valve Thickened mitral valve. Aortic Valve Thickened aortic valve. Tricuspid Valve Tricuspid valve not well visualized. Pulmonic Valve Pulmonic valve not well visualized. Pericardium No pericardial effusion. Aorta Normal aortic annulus size. IVC Inferior vena cava not visualized. CONCLUSIONS Possibly normal LV size and ejection fraction around 61%. Mildly increased left atrial size. Thickened aortic and mitral valves Possibly normal RV size and ejection fraction. Technically difficult study because of the poor ultrasonic window. Comparison with the previous study is difficult because of the difference in the technical quality. Dr Danny Mcdonough MD [facility] (Electronically Signed) Final Date: 30 Jul 2024 08:14 S
[2024-07-29 11:39] LABS: Glucose Point of Care 196 mg/dL (70-110)
[2024-07-29 12:43] LABS: Glucose Point of Care 184 mg/dL (70-110)
--- NOTE | 2024-07-29 14:18 | PM.PN ---
Subjective Subjective: Postop while in PACU he developed hypotension and had A-fib with RVR with rates up to 150s. Patient was given Clarke-Synephrine. Anesthesia present with the patient. Hospitalist was notified. I went bedside to evaluate patient as well. At this time patient was on 10 L nasal cannula however by the end of the encounter he had transitioned down to 3 L nasal cannula. Awake alert oriented able to answer questions and tell me what kind of surgery he had his name date of and he was oriented to place time and situation. Patient in A-fib with RVR. Cardiology consulted. Clarke-Synephrine drip to be stopped. Levophed to be started. Patient did receive 1 unit albumin by anesthesia, 1 L normal saline bolus. Second normal saline bolus being given at this time. Blood pressure has improved and has been responsive to fluid. Due to above events patient will be transferred to ICU for closer monitoring overnight. Repeat labs obtained at that time showed hemoglobin 9.6. Creatinine 3.2. Today patient seen in the morning. Resting comfortably in bed awake alert oriented to time place and situation. Family present at bedside. Hemoglobin 7.0 this morning. Creatinine 3.9. Surgical bandage shows minimal bleeding. CT hip ordered for this morning. Vitals/I&O/Wt Last Vital Signs Temp 97.8 F 07/29/24 12:00 Pulse 99 07/29/24 12:00 Resp 12 07/29/24 12:00 BP 150/72 07/29/24 12:00 Pulse Ox 97 07/29/24 12:00 O2 Del Method Room Air 07/29/24 12:00 O2 Flow Rate 2 07/29/24 00:00 07/28/24 07/29/24 07/29/24 22:59 06:59 14:59 Intake Total 4.875 / 4.875 823.896 / 828.771 504.563 / 504.563 Output Total 300 / 1475 400 / 1875 Balance -295.125 / -1470.125 423.896 / -1046.229 504.563 / 504.563 Weight last 48 hrs Weight 118.614 kg Weight 120.202 kg Physical Exam Narrative: General: No acute distress, AO x3 HEENT: PERRLA, pupils bilaterally equal and reactive, pallors not present Chest: Normal vesicular breath sounds, no added sounds, equal good air entry bilaterally CVS: S1-S2 regular, no murmurs, no tachycardia, no gallops, no rubs Abdomen: Soft, nontender, bowel sounds present Neuro: No focal deficits, no facial deformity, AO x3, Ext: right hip surgical site covered with surgical bandage with minimal bleeding upper and lower extremities,1+ edema present Urinary Catheter Management: Huber: Cath Placed During This Visit: yes Reason for Continuing Indwelling Catheter: Accurate Measurement of Urinary Output in Critically Ill Patients Urinary Catheter Date of Insertion: 07/23/24 Data 07/29/24 03:29 07/29/24 03:29 A&P Assessment and plan (1) Intertrochanteric fracture: Presenting with fall and intertrochanteric fracture today. activity/limb immbolization instructions per ortho service Planned for OR intervention, therefore holding Xarelto and Plavix. Recommended per ortho to be off Plavix for 5 days before ORIF. Prn morphine, Oxy/APAP for pain control Patient is Mandaeism, does not accept blood products (2) Carotid artery stenosis with cerebral infarction: h/o recent symptomatic carotid artery stenosis with CVA s/p Right carotid stenting at [facility] in later may 2024. Discussed case with vascular surgery educational manager at [facility] recommended to maintain anticogulation with Heparin gtt and antiplatelet coverage with Asa 81mg daily while Plavix and Xarelto remain on hold to minimize risk of CVA monitor serial Hb and platelet count high risk of CVA discussed with patient (3) Hypotension: hypotension ? suspect polypharmacy Hold antihypertensives for now prn hydralazine 10mg every 4 hrs if needed for SBP > 160 based on BP trend will resume home BP meds (4) Atrial fibrillation with controlled ventricular rate: continue carvedilol Hold xarelto a/c with heparin gtt to be stopped 4 hrs pre procedure recent echo from 04/2024 with EF 55-60% and mild pulm HTN. (5) Dysphagia: symptomatic several weeks planned for EGD outpatient recently but deferred in view of being on a/c protonix 40mg po BID for now Hb stable at 15 currently , monitor for any worsening of symptoms (6) Acute kidney injury superimposed on CKD: (7) Atrial fibrillation with RVR: (8) Blood loss anemia: (9) Anemia: Plan DVT ppx: heparin gtt will suffice Full code July 24, 2024 Per Ortho patient to remain off of Plavix for 5 days prior to surgical intervention. Xarelto and Plavix are both currently on hold. In the interim he continues to be on heparin gtt. and aspirin 81 mg p.o. daily after discussion with vascular surgery at [facility] where his latest right carotid stent was placed in late May. Patient is currently tolerating the heparin and aspirin. Hemoglobin noted to be stable. Creatinine trending up to 2.2 today. Baseline creatinine range is between 1.5-2.0 previously. Poor urine output at 375 cc. Suspect this may be related to ATN from hypotension upon arrival. Currently has a Huber catheter in place. On maintenance IV fluids at 75 cc an hour. Closely monitor for signs of hypervolemia given that patient is chronically on Lasix HCTZ and triamterene at home for history of diastolic CHF. Currently blood pressure is well-maintained. Continue to hold antihypertensives with the exception of carvedilol. Renal consult will be obtained. Renal imaging from July 23, 2024 without any hydronephrosis or stones. 07/25/2024 We will wait for 5 days prior to surgical intervention as per Ortho recommendations. Xarelto and Plavix both currently on hold. Continue heparin drip. ? Vascular surgery at [facility] was contacted. Continue on aspirin 81 daily. ? Creatinine trending up to 3.3 today. Most likely secondary to prerenal cause from hypotension. Continue maintenance fluid 75 cc/h. ? Continue to hold Lasix hydrochlorothiazide, try Motrin. Carvedilol was being continued however blood pressure is soft 99/61. I will hold that today as well. ? Consult nephrology. 07/26/2024 cr 4.6 nephro following continue to hctz continue heparin gtt plan for surgery 07/28 speech assessment complete: thickened liquids added coreg held 07/27/2024 seen today cr 4.6 continue heparin gtt plan for surgery 07/28 pt appears hypervolemic order lasix 60 IV x1 stop IV fluids sodium 128 today patients labs are worsening, renal function worsening mild acidosis will discuss with nephrology pt will need to be cleared from nephro standpoint for surgery hemoglobin 9.6 today. 15 at admission, 12 the next day... pt was dehydrated on admission check iron studies, suspect anemia due to renal dysfunction no gross bleeding present check fobt continue heparin gtt continue protonix 40 BID recheck BMP at 4 pm today 07/28/2024 Plan for surgery today Patient n.p.o. since midnight. Patient is status post 3 doses of 60 IV Lasix Creatinine 3.8 at this time. Per nephrology patient may require temporary dialysis in postoperative period. Echo from April 2024 shows normal EF. Patient does have history of diastolic dysfunction. He denies chest pain shortness of breath. Patient is a Taoist. Will not accept any kind of blood products. Continue Protonix 40 IV twice daily Due to soft blood pressures secondary to pain medications will continue to hold Coreg at this time. Acidosis secondary to renal dysfunction slightly improving. Patient also received Bicitra 60 mL x 1 yesterday evening. Sodium improving. Hyponatremia secondary to hypervolemia Anemia most likely secondary to kidney dysfunction and hypervolemia most likely dilutional. No evidence of gross bleed. Hemoglobin 9.6. Patient is 5 L positive since admission. Reticulocyte count 3.3. Patient is status post 200 mg dose of IV iron. FOBT pending. Holding Lantus. Continue sliding scale insulin ? Patient had recent carotid stent placed. Will need to be on Plavix and Xarelto postop. In the interim we will use aspirin and heparin drip as per recommendations from vascular surgery at [facility]. Patient will require an additional 24 to 48 hours stay postop to ensure hemoglobin stable and supportive care. He will need rehab 07/29/2024 Patient went for intertrochanteric hip fracture repair 07/28. Surgery was uneventful with estimated blood loss of 450 cc. Continue amiodarone drip Cardiology consult appreciated. Cardiology following. Nephrology consulted and following. Levophed has been turned off overnight. His blood pressure is stable. Metoprolol 12.5 twice daily has been added. CT right hip ordered to evaluate for postop hematoma. Called [facility] discussed with vascular surgery and explained the situation. Patient is a Taoist and cannot receive blood. Vascular surgery okay with patient being on single antiplatelet agent. They are okay with aspirin 325 daily going forward which will serve the purpose of DVT prophylaxis and for his cardiac stent. However I discussed with family that we cannot start aspirin today secondary to patient's hemoglobin being 7.0. Order IV iron 200 sucrose x 4 days. Patient was given 1 dose prior to surgery. Thereafter continue on oral iron. I would hold off on heart reporting secondary to it being a thrombogenic. Discussed with family the patient is at risk for stroke secondary to being off anticoagulation. We will not be restarting Xarelto at discharge and would recommend to restart that as an outpatient as patient's hemoglobin improves. Benefits outweigh the risk at this point. Family agreeable and understanding. Continue IV fluids and arterial line at this time. If patient's blood pressure remained stable for another 24 hours we will remove arterial line. Patient and family demonstrate understanding regarding the above discussion. Patient will require rehab at time of discharge. Medically will require another 2 to 3 days in hospital and will not be discharged until medically stable. Recheck CBC every 12 hours Monitor urine output. Secondary to low blood pressure I do expect creatinine and BUN to rise. Nephrology on board. PDMP PDMP Reviewed: Not Reviewed Attestations Medical Necessity Statement*: Postop hypotension, A-fib with RVR, status post hip surgery. Requires greater than 2 to 3 days stay for medical stability. Diagnoses Closed displaced intertrochanteric fracture of left femur, initial encounter S72.142A Encounter type: initial encounter Fracture alignment: displaced Fracture type: closed Laterality: left Carotid artery stenosis with cerebral infarction I63.239 Hypotension I95.9 Atrial fibrillation with controlled ventricular rate I48.91 Dysphagia R13.10 Acute kidney injury superimposed on CKD N17.9; N18.9 Atrial fibrillation with RVR I48.91 Blood loss anemia D50.0 Anemia D64.9
--- NOTE | 2024-07-29 14:27 | P.PN_ITS ---
Subjective 2 Subjective: Patient is now post op day 1 from internal fixation of the right intertrochanteric hip fracture. Patient had a medical event within the PACU and now is in the ICU. He is awake and alert and answering questions appropriately. Medications: Reviewed: Yes Vitals/I&O/Wt Last Vital Signs Temp 97.8 F 07/29/24 12:00 Pulse 99 07/29/24 12:00 Resp 12 07/29/24 12:00 BP 150/72 07/29/24 12:00 Pulse Ox 97 07/29/24 12:00 O2 Del Method Room Air 07/29/24 12:00 O2 Flow Rate 2 07/29/24 00:00 07/28/24 07/29/24 07/29/24 22:59 06:59 14:59 Intake Total 4.875 / 4.875 823.896 / 828.771 504.563 / 504.563 Output Total 300 / 1475 400 / 1875 Balance -295.125 / -1470.125 423.896 / -1046.229 504.563 / 504.563 Weight last 48 hrs Weight 261 lb 8 oz Weight 265 lb Physical Exam 2 Narrative: On exam today right hip wound and dressing are clear. There is some swelling around the thigh as there was prior to surgery also. Neurovascular intact distally Urinary Catheter Management: Huber: Cath Placed During This Visit: yes Reason for Continuing Indwelling Catheter: Accurate Measurement of Urinary Output in Critically Ill Patients Urinary Catheter Date of Insertion: 07/23/24 Data 07/29/24 03:29 07/29/24 03:29 A&P Assessment and plan (1) Intertrochanteric fracture: Patient status post intertrochanteric hip fracture repair. Tolerating the surgery well Patient was recent medical event now in the ICU Plan Plan at this time is toe-touch weightbearing on the right walker ambulation. PDMP PDMP Reviewed: Not Reviewed Attestations 2 Medical Necessity Statement*: Patient in need of pain control, physical therapy, assistance with ADLs Coding Level of Care Code Critical Care >/= 30 minutes Diagnoses Closed displaced intertrochanteric fracture of left femur, initial encounter S72.142A Encounter type: initial encounter Fracture type: closed Fracture alignment: displaced Laterality: left
[2024-07-29 17:08] LABS: Glucose Point of Care 212 mg/dL (70-110)
[2024-07-29 17:21] LABS: Basophils % 0.3 %; Eosinophils # 0.1 10^3/uL (0.0-0.8); Eosinophils % 1.3 %; Mean Corpuscular HGB Conc 32.2 g/dL (30-55); Mean Corpuscular Volume 96.2 fl (82-101); Mean Platelet Volume 9.7 fL (7.4-10.4); Neutrophils # 7.05 10^3/uL (1.8-7.7); Neutrophils % 63.4 %; Nucleated Red Blood Cells % 0.2 %; Platelet Count 389 10^3/cmm (157-399); Red Blood Count 2.13 10^6/uL (3.85-5.65); Red Cell Distribution Width 15.4 % (12.1-15.1); White Blood Count 11.11 10^3/uL (3.29-11.43)
[2024-07-29] MEDS: escitalopram 10 mg Tablet PO (17:26)
[2024-07-29] MEDS: URSODIOL 300 MG 900 EACH PO (17:27)
[2024-07-29 17:52] LABS: Hematocrit 20.5 % (37-53); Slide Review Slide Review Perform
[2024-07-29 17:54] LABS: Absolute Segmented Neutrophil 6.7 10/cmm (1.6-7.1); Band Neutrophils Absolute 0.3 10^3/cmm (0.0-1.2); Segmented Neutrophils 60 %; Total Cells Counted 100 (0-100)
[2024-07-29 17:55] LABS: Absolute Eosinophils 0.3 10^3/cmm (0.0-0.7); Eosinophils 3 %; Lymphocytes 23 %; Lymphocytes Absolute 2.6 10^3/cmm (1.2-3.4); Monocytes Absolute 1.1 10^3/cmm (0.1-0.6); Platelet Estimate Normal (Normal)
[2024-07-29] MEDS: folic acid 1 mg Tablet PO (18:22)
[2024-07-29] MEDS: cyanocobalamin 1,000 mcg Tablet 1000 MCG PO (18:22)
[2024-07-29] MEDS: morphine 4 mg/mL SDV 1 mL IVP (19:46)
[2024-07-29 21:05] LABS: Glucose Point of Care 192 mg/dL (70-110)
[2024-07-29] MEDS: metoprolol tartrate 25 mg Tablet 12.5 MG PO (21:09)
[2024-07-29] MEDS: vancomycin 1,750 MG/350 ML PIGGYBACK 175 MG IV (22:59)
[2024-07-29] MEDS: cefepime 1,000 mg SDV 1000 MG IVP (22:59)
[2024-07-30] VITALS (15 sets, daily range): BP systolic 91–142; BP diastolic 36–76; PULSE 70–87; RESP 6–17; TEMP 36.4–36.7; O2SAT 97–100
[2024-07-30] MEDS: HYDROcodone-acetaminophen 5-325 mg Tablet 1 TAB PO ×3 (01:06→15:23)
--- NOTE | 2024-07-30 02:12 | PC.NURSE ---
Pt given one hydrocodone instead of 1000 mg scheduled acetaminophen at 0130 (see MAR) because 24 hour acetaminophen level would have been exceeded. Pt underpad and delfina changed. Surgical dressing reinforced with abd pad on side where minimal blood was noted. While repositioning pt, it was noted by this nurse that pt scrotum was swollen and bruising.
[2024-07-30 05:04] LABS: Basophils % 0.2 %; Eosinophils # 0.3 10^3/uL (0.0-0.8); Eosinophils % 2.3 %; Lymphocytes % 8.1 %; Mean Corpuscular HGB Conc 32.3 g/dL (30-55); Mean Corpuscular Hemoglobin 31.2 pg (27-33); Mean Corpuscular Volume 96.5 fl (82-101); Mean Platelet Volume 9.6 fL (7.4-10.4); Monocytes # 2.2 10^3/uL (0.2-0.9); Monocytes % 17.1 %; Neutrophils # 8.47 10^3/uL (1.8-7.7); Neutrophils % 66.4 %; Nucleated Red Blood Cells % 0.2 %; Platelet Count 364 10^3/cmm (157-399); Red Blood Count 1.99 10^6/uL (3.85-5.65); Red Cell Distribution Width 15.5 % (12.1-15.1); White Blood Count 12.77 10^3/uL (3.29-11.43)
[2024-07-30 05:25] LABS: Alanine Aminotransferase < 5 U/L (0-41); Albumin Level 2.3 g/dL (3.5-5.2); Alkaline Phosphatase 91 U/L (40-130); Anion Gap 18.5 (5-19); Aspartate Amino Transferase 19 U/L (0-40); Carbon Dioxide 19 mmol/L (22-29); Chloride 99 mmol/L (98-107); Creatinine Clr Calc Pharmacy 20.3234; Globulin 2.4 g/dL (1.3-4.6); Glucose 173 mg/dL (65-115); Magnesium 1.8 mg/dL (1.7-2.3); Osmolality Calculated 303 mOsm/kg (285-295); Phosphorus 4.9 mg/dL (2.5-4.5); Potassium 4.5 mmol/L (3.5-5.1); Sodium 132 mmol/L (136-145); Total Bilirubin 0.4 mg/dL (0.15-1.2); Total Protein 4.7 g/dL (6.6-8.7)
[2024-07-30 05:39] LABS: Blood Urea Nitrogen 82 mg/dL (8-23)
[2024-07-30 05:40] LABS: Hematocrit 19.2 % (37-53)
[2024-07-30 05:42] LABS: Slide Review Slide Review Perform
--- NOTE | 2024-07-30 07:17 | PHA.VACGOAL ---
Vancomycin Goal - Goal Vancomycin Goal:: 10-15 mg/L Vancomycin Indication:: Other (EMPIRIC THERAPY) - Therapy Current therapy:: Cefepime Day of therpy:: Day []of [] . Actual body weight (kg): 261 lb 8 oz - Data Labs: WBC 12.77 10^3/uL (3.29-11.43) H 07/30/24 04:41 RBC 1.99 10^6/uL (3.85-5.65) L 07/30/24 04:41 Hgb 6.20 g/dL (11.27-16.99) L* 07/30/24 04:41 Hct 19.2 % (37-53) L* 07/30/24 04:41 MCV 96.5 fl (82-101) 07/30/24 04:41 MCH 31.2 pg (27-33) 07/30/24 04:41 MCHC 32.3 g/dL (30-55) 07/30/24 04:41 RDW 15.5 % (12.1-15.1) H 07/30/24 04:41 Sodium 132 mmol/L (136-145) L 07/30/24 04:41 Potassium 4.5 mmol/L (3.5-5.1) 07/30/24 04:41 Chloride 99 mmol/L (98-107) 07/30/24 04:41 Carbon Dioxide 19 mmol/L (22-29) L 07/30/24 04:41 Anion Gap 18.5 (5-19) 07/30/24 04:41 BUN 82 mg/dL (8-23) H* 07/30/24 04:41 Creatinine 4.1 mg/dL (0.7-1.2) H 07/30/24 04:41 GFR Calculation Not Reportable 07/30/24 04:41 Last dialysis session:: N/A Treatment plan:: new consult Regimen:: INITIAL LOADING DOSE OF 1750 MG X 1. WILL PULSE DOSE INTERMITTENTLY DUE TO RENAL FUNCTION AND OBTAIN A LEVEL 24 HOURS POST LOADING DOSE. Follow up:: TROUGH 07/30 @2300
--- NOTE | 2024-07-30 07:22 | P.PN_ITS ---
Subjective 2 Subjective: pt feels weak , poor PO intake BPs stable Medications: Reviewed: Yes Vitals/I&O/Wt Last Vital Signs Temp 98.2 F 07/29/24 16:00 Pulse 78 07/30/24 06:00 Resp 10 L 07/30/24 04:00 BP 132/67 07/30/24 04:00 Pulse Ox 98 07/30/24 04:00 O2 Del Method Room Air 07/29/24 16:00 O2 Flow Rate 2 07/29/24 00:00 07/29/24 07/30/24 07/30/24 22:59 06:59 14:59 Intake Total 1250 / 2048.454 530.87 / 2579.324 Output Total 375 / 375 175 / 550 Balance 875 / 1673.454 355.87 / 2028.324 Weight last 48 hrs Weight 118.614 kg Physical Exam 2 Narrative: awake , alert , no distress PEERLA S1S2 RRR Lung clear Abd soft , non tender No edema Urinary Catheter Management: Huber: Cath Placed During This Visit: yes Reason for Continuing Indwelling Catheter: Accurate Measurement of Urinary Output in Critically Ill Patients Urinary Catheter Date of Insertion: 07/23/24 Data 07/30/24 04:41 07/30/24 04:41 Micro: Microbiology 07/29/24 22:58 Blood Culture - Preliminary Blood SPECIMEN COLLECTED 07/29/24 22:50 Blood Culture - Preliminary Blood SPECIMEN COLLECTED A&P Assessment and plan (1) Acute kidney injury superimposed on CKD: Plan 1. Acute on chronic kidney disease stage III: Baseline creatinine in the 1.5-2 range, now has DANIOL with a creatinine up to 4.1 -in the setting of hypotension possibly ATN as well as IV contrast exposure on 07/23/2024. -BUN/Cr rising - disucused tmporary HD , family agreed.Request Temporary hD catheter placement and start HD , -, avoid IV contrast exposure if possible. Holding HCTZ/triamterene. 2. NSTEMI: s/p heparin gtt 3. Hypertension: Was hypotensive on presentation, meds on hold 4. History of carotid artery stenosis and status post stenting recently in May 2024 5. Right hip fracture, followed by Ortho, s/p ORIF 6. Anemia , pt Jehovah witness, agreed to recieve Procit Patient evaluated using audiovisual cart. Time spent 40 minutes PDMP PDMP Reviewed: Not Reviewed Attestations 2 Medical Necessity Statement*: PER FITZHI Coding Level of Care Code Acute Code for Chg Fwd Diagnoses Acute kidney injury superimposed on CKD N17.9; N18.9
[2024-07-30] MEDS: EPOETIN ALFA EPBX 40000 UNIT/ML SUBCUT (07:52)
[2024-07-30] MEDS: calcium carbonate 500 mg Chew Tablet 1000 MG PO (08:34)
[2024-07-30] MEDS: sennosides-docusate Tablet 2 TAB PO (08:34)
[2024-07-30] MEDS: metoprolol tartrate 25 mg Tablet 12.5 MG PO (08:34)
[2024-07-30] MEDS: cyanocobalamin 1,000 mcg Tablet 1000 MCG PO (08:35)
[2024-07-30] MEDS: pantoprazole DR 40 mg Tablet PO (08:35)
[2024-07-30] MEDS: folic acid 1 mg Tablet PO (08:35)
[2024-07-30] MEDS: cholecalciferol (vitamin D3) 1,000 unit Tablet 1000 UNIT PO (08:35)
[2024-07-30] MEDS: URSODIOL 300 MG 600 EACH PO (08:35)
[2024-07-30] MEDS: mupirocin oint 22 gm 1 APPLIC NASAL (08:36)
[2024-07-30] MEDS: chlorhexidine gluconate 0.12% Btl 473 mL 30 ML MUCOUS MEM (08:36)
[2024-07-30] MEDS: atorvastatin 40 mg Tablet 80 MG PO (08:39)
[2024-07-30] MEDS: insulin lispro 100 unit/1 mL SUBCUT ×2 (08:40→12:03)
[2024-07-30] MEDS: multivitamin therapeutic Tablet 1 TAB PO (08:40)
--- NOTE | 2024-07-30 09:03 | USR_ITS ---
PROCEDURE INFORMATION: Exam: US Scrotum Exam date and time: 07/30/2024 9:34 AM Age: 79 years old Clinical indication: Other: Echymosis TECHNIQUE: Imaging protocol: Real-time ultrasound of the scrotum and contents with color Doppler and image documentation. COMPARISON: CT hip RT wo con* [id number] 07/29/2024 9:21 AM FINDINGS: Right testicle: The right testis demonstrates a coarse, heterogeneous echotexture but no mass is noted. There is good Doppler flow present. No evidence of hyperemia. Left testicle: Normal. No mass. Normal color Doppler and arterial waveforms. No torsion. Epididymides: Normal. Scrotum/soft tissues: There is a large left-sided hydrocele. US/US scrotum [id number] IMPRESSION: 1. Heterogeneous right testis. This could represent contusion in the setting of trauma. 2. Large left-sided hydrocele
--- NOTE | 2024-07-30 09:41 | PC.NURSE ---
Dr. Pinzon spoke with patient and family at patients bedside regarding possible transfer to [facility] in [place], [place]. Patient and family agree with plan to transfer. All questions addressed per Dr. Pinzon and this nurse.
[2024-07-30] MEDS: iron sucrose 200 MG in sodium chloride 0.9% (100 ml) 100 ML 220 MG IV (10:22)
[2024-07-30 11:30] LABS: Glucose Point of Care 206 mg/dL (70-110)
[2024-07-30 11:30] LABS: Glucose Point of Care 243 mg/dL (70-110)
[2024-07-30] MEDS: FUROsemide 10 mg/mL SDV 4mL 40 MG IVP (12:03)
--- NOTE | 2024-07-30 12:31 | PM.TDS ---
Transfer Summary Providers Date of Admission: 07/23/24 15:14 Date of Discharge/Transfer: 07/30/24 Attending Provider at Admission: Marie Barney MD Attending Provider at Transfer: Kirsten Pinzon MD Primary Care Provider: Humberto Griggs DO Transfer Plans: Anticipated date of transfer: 07/30/24. Receiving Facility: [facility]. Receiving Provider: Dr. Lino. Diagnoses at Discharge Discharge Diagnosis (1) Acute kidney injury superimposed on CKD: Status: Acute Reason for Visit Reason for Visit right hip pain s/p fall Hospital Course Hospital Course Patient with history of stroke and recent carotid stenting in late May at [facility] presented to the hospital with a fall and intertrochanteric fracture. Patient was on Xarelto and Plavix prior to admission. Case was discussed by admitting physician with vascular surgery at [place] who recommended to be on aspirin and heparin drip while Xarelto and Plavix are being held. Plan to hold Plavix for 5 days before proceeding with surgery. Surgery performed on 07/28. Patient did receive contrast at admission and had episodes of hypotension likely due to polypharmacy. All antihypertensives were held. He developed ATN and worsening renal function. Possibility of dialysis was discussed with the patient. However he responded well to IV Lasix. Creatinine improved from 4.6-3.8 prior to surgery. He underwent surgery on 07/28 and postop developed hypotension and A-fib with RVR. Required Clarke-Synephrine drip which was later switched to Levophed. Amio bolus and Amio drip ordered. Required Levophed for 12 to 18 hours postop. Also received 2 L of IV fluids bolus. Hemoglobin prior to surgery 9.6. Postop 7, 6.8, 6.2. No evidence of gross bleed. heparin Drip was held 12 hours prior to procedure. CT right hip does not show evidence of bleed or large hematoma. Per nephrology plan for dialysis as patient does not have adequate urine output and creatinine is worsening with BUN 82 today. Patient is a Religion and would not accept any blood products. For dialysis catheter placement should there be a complication or hospital does not have interventional radiology or vascular surgery as a backup. With patient's hemoglobin counts being already low patient's family prefers to be at a facility where vascular surgery would be available in case of a complication with dialysis catheter placement. Preferably [facility] as they have had care previously there before. Currently patient is on IV iron for 5 days total (today is third dose), erythropoietin x 1 has been given as well. Aspirin Xarelto Plavix heparin drip are all being held at this time. Did discuss with vascular surgery postop and they recommend single antiplatelet agent going forward however in view of patient's anemia I am holding off on aspirin at this time. Family understands the risk of stroke and DVT. Lastly cardiology is on board and has evaluated the patient. Metoprolol 12.5 twice daily was started 07/29/2024. Plan to discontinue amiodarone drip later tonight and switch to oral. Patient's home medications carvedilol 12.5 twice daily, hydralazine 25 twice daily, lisinopril 20 daily, triamterene 75 daily, hydrochlorothiazide 50 daily all are being held since admission. Cause likely to be polypharmacy. Dysphagia: Patient has been recommended mildly thickened liquids. He was seen by speech therapy. Scrotal ecchymosis: Patient has developed scrotal ecchymosis postop. Ultrasound scrotum performed today shows 1. Heterogeneous right testis. This could represent contusion in the setting of trauma. 2. Large left-sided hydrocele . Recommend urology consultation. Currently not available at our facility. Case discussed with hospitalist team at [facility] who have generously excepted this patient for transfer. Patient's vitals are stable. Arterial line will be discontinued prior to transfer. Per case management patient has been accepted to [facility] for rehab after hospital discharge. Physical Exam Narrative: General: No acute distress, AO x3 HEENT: PERRLA, pupils bilaterally equal and reactive, pallors not present Chest: Normal vesicular breath sounds, no added sounds, equal good air entry bilaterally CVS: S1-S2 regular, no murmurs, no tachycardia, no gallops, no rubs Abdomen: Soft, nontender, bowel sounds present Neuro: No focal deficits, no facial deformity, AO x3, Ext: right hip surgical site covered with surgical bandage with minimal bleeding upper and lower extremities,1+ edema present scrotum echymotic slighly enlarged, Urinary Catheter Management: Huber: Cath Placed During This Visit: yes Reason for Continuing Indwelling Catheter: Accurate Measurement of Urinary Output in Critically Ill Patients Urinary Catheter Date of Insertion: 07/23/24 TS Data Studies Completed and Pending Pending at discharge Category Date Time Status Blood Culture Stat Lab 07/29/24 22:58 Results CBC Auto Diff [Complete Blood Count w/Auto] Q12H Lab 07/30/24 17:00 Ordered CBC Auto Diff [Complete Blood Count w/Auto] Q12H Lab 07/31/24 05:00 Ordered CBC Auto Diff [Complete Blood Count w/Auto] Q12H Lab 07/31/24 17:00 Ordered CBC Auto Diff [Complete Blood Count w/Auto] Q12H Lab 08/01/24 05:00 Ordered Occult Blood Stool [Immunochemical Fecal OCB] Routine Lab 07/27/24 12:26 Uncollected Urine Culture Stat Lab 07/29/24 22:58 Received Vancomycin Trough Timed Lab 07/30/24 23:00 Ordered Completed Studies During Hospitalization Category Date Time Status CT abdomen pelvis w con* [id number] Stat Cat Scan 07/23/24 14:[address] head wo con* [id number] Stat Cat Scan 07/23/24 13:[address] hip RT wo con* [id number] Stat Cat Scan 07/29/24 08:57 Completed XR chest 1V [id number] Urgent Exams 07/28/24 18:41 Completed XR chest 1V portable [id number] Stat Exams 07/23/24 13:19 Completed XR hip RT 2-3V wo/w pel* [id number] Routine Exams 07/28/24 00:00 Completed XR hip RT 2-3V wo/w pel* [id number] Stat Exams 07/23/24 13:19 Completed CV. echo complete* [id number] Stat Ultrasound 07/28/24 18:08 Completed CV. echo limited [id number] Routine Ultrasound 07/29/24 11:16 Completed US scrotum [id number] Stat Ultrasound 07/30/24 09:03 Completed Laboratory Last Values WBC 12.77 10^3/uL (3.29-11.43) H 07/30/24 04:41 RBC 1.99 10^6/uL (3.85-5.65) L 07/30/24 04:41 Hgb 6.20 g/dL (11.27-16.99) L* 07/30/24 04:41 Hct 19.2 % (37-53) L* 07/30/24 04:41 MCV 96.5 fl (82-101) 07/30/24 04:41 MCH 31.2 pg (27-33) 07/30/24 04:41 MCHC 32.3 g/dL (30-55) 07/30/24 04:41 RDW 15.5 % (12.1-15.1) H 07/30/24 04:41 Plt Count 364 10^3/cmm (157-399) 07/30/24 04:41 MPV 9.6 fL (7.4-10.4) 07/30/24 04:41 Neut % (Auto) 66.4 % 07/30/24 04:41 Lymph % (Auto) 8.1 % 07/30/24 04:41 [place] % (Auto) 17.1 % 07/30/24 04:41 Eos % (Auto) 2.3 % 07/30/24 04:41 Baso % (Auto) 0.2 % 07/30/24 04:41 Reticulocyte % (Auto) 3.3 % (0.5-2.0) H 07/27/24 06:00 Neut # (Auto) 8.47 10^3/uL (1.8-7.7) H 07/30/24 04:41 Lymph # (Auto) 1.0 10^3/uL (0.8-4.8) 07/30/24 04:41 [place] # (Auto) 2.2 10^3/uL (0.2-0.9) H 07/30/24 04:41 Eos # (Auto) 0.3 10^3/uL (0.0-0.8) 07/30/24 04:41 Baso # (Auto) 0.0 10^3/uL (0.0-0.1) 07/30/24 04:41 Nucleated RBC % (auto) 0.2 % 07/30/24 04:41 Total Counted 100 (0-100) 07/29/24 16:55 Atypical Lymphs % 0.0 % (0-5) 07/29/24 16:55 Absolute Neutrophils 7.0 10^3/cmm (1.4-6.5) H 07/29/24 16:55 Segmented Neutrophils 60 % 07/29/24 16:55 Band Neutrophils 3.0 % 07/29/24 16:55 Absolute Lymphocytes 2.6 10^3/cmm (1.2-3.4) 07/29/24 16:55 Lymphocytes (Manual) 23 % 07/29/24 16:55 Monocytes (Manual) 10.0 % 07/29/24 16:55 Absolute Monocytes 1.1 10^3/cmm (0.1-0.6) H 07/29/24 16:55 Eosinophils (Manual) 3 % 07/29/24 16:55 Absolute Eosinophils 0.3 10^3/cmm (0.0-0.7) 07/29/24 16:55 Basophils (Manual) 0.0 % 07/29/24 16:55 Absolute Basophils 0.0 10^3/cmm (0.0-0.2) 07/29/24 16:55 Metamyelocytes 1.0 % 07/29/24 16:55 Myelocytes 0.0 % 07/29/24 16:55 Promyelocytes 1.0 % 07/29/24 03:29 Nucleated RBCs # 0.0 /100WBC 07/30/24 04:41 Platelet Estimate Normal (Normal) 07/29/24 16:55 PT 15.6 Seconds (12-15.1) H 07/24/24 21:13 INR 1.22 (0.8-1.2) H 07/23/24 12:55 APTT 43.0 SECONDS (23.9-36.7) H 07/27/24 12:07 PT Patient/Normal 1:1 14.1 Seconds (12.0-15.1) 07/24/24 21:13 PTT Patient/Normal 1:1 33.9 Seconds (23.9-36.7) 07/24/24 21:13 Sodium 132 mmol/L (136-145) L 07/30/24 04:41 Potassium 4.5 mmol/L (3.5-5.1) 07/30/24 04:41 Chloride 99 mmol/L (98-107) 07/30/24 04:41 Carbon Dioxide 19 mmol/L (22-29) L 07/30/24 04:41 Anion Gap 18.5 (5-19) 07/30/24 04:41 BUN 82 mg/dL (8-23) H* 07/30/24 04:41 Creatinine 4.1 mg/dL (0.7-1.2) H 07/30/24 04:41 GFR Calculation Not Reportable 07/30/24 04:41 Glucose 173 mg/dL (65-115) H 07/30/24 04:41 POC Glucose 243 mg/dL (70-110) H 07/30/24 11:13 Calculated Osmolality 303 mOsm/kg (285-295) H 07/30/24 04:41 Calcium 8.0 mg/dL (8.5-10.5) L 07/30/24 04:41 Phosphorus 4.9 mg/dL (2.5-4.5) H 07/30/24 04:41 Magnesium 1.8 mg/dL (1.7-2.3) 07/30/24 04:41 Iron 38 ug/dL (59-158) L 07/27/24 06:00 TIBC 223 mcg/dl 07/27/24 06:00 % Saturation 17.0 % (20-50) L 07/27/24 06:00 Unsat Iron Binding 185 ug/dL (112-347) 07/27/24 06:00 Ferritin 141 ng/mL (30-400) 07/27/24 06:00 Total Bilirubin 0.4 mg/dL (0.15-1.2) 07/30/24 04:41 AST 19 U/L (0-40) 07/30/24 04:41 ALT < 5 U/L (0-41) 07/30/24 04:41 Alkaline Phosphatase 91 U/L (40-130) 07/30/24 04:41 Total Protein 4.7 g/dL (6.6-8.7) L 07/30/24 04:41 Albumin 2.3 g/dL (3.5-5.2) L 07/30/24 04:41 Globulin 2.4 g/dL (1.3-4.6) 07/30/24 04:41 Urine Color Yellow (Yellow) 07/24/24 15:50 Urine Appearance Slightly cloudy (CLEAR) 07/24/24 15:50 Urine pH 5.0 (5-7) 07/24/24 15:50 Ur Specific [place] 1.048 (1.005-1.030) H 07/24/24 15:50 Urine Protein 1+ (Negative) H 07/24/24 15:50 Urine Glucose (UA) Norm (Normal) 07/24/24 15:50 Urine Ketones Negative (Negative) 07/24/24 15:50 Urine Blood 3+ (Negative) H 07/24/24 15:50 Urine Nitrate Negative (Negative) 07/24/24 15:50 Urine Bilirubin Neg (Negative) 07/24/24 15:50 Urine Urobilinogen 1.0 mg/dL (Negative) 07/24/24 15:50 Ur Leukocyte Esterase 1+ (Negative) H 07/24/24 15:50 Urine RBC 80-100 /hpf (0-2) H 07/24/24 15:50 Urine WBC 6-10 /hpf (0-5) 07/24/24 15:50 Ur Squamous Epith Cells 0-4 /hpf (0-5) H 07/24/24 15:50 Amorphous Sediment Not Reportable 07/24/24 15:50 Urine Bacteria 1+ /hpf (NONE) H 07/24/24 15:50 Blood Type O Positive 07/28/24 12:48 Rho(D) Type Rh positive 07/28/24 12:48 Antibody Screen Negative 07/28/24 12:[address] 07/23/24 13:55 IMPRESSION: 1. No acute intracranial finding. 2. Chronic right occipital lobe infarct. 3. Calcified atherosclerotic changes are seen in the left intracranial vertebral artery and bilateral internal carotid artery cavernous segment. 4. Cortical atrophy is present. 5. Likely severe small-vessel ischemic changes. Abdomen/Pelvis CT 07/23/24 14:28 IMPRESSION: 1. Comminuted displaced right intertrochanteric femoral fracture. 2. No sign of significant intra-abdominal injury. 3. Incidental findings above. Hip/Pelvis X-Ray 07/28/24 00:00 IMPRESSION: Left hip fracture with internal fixation as above. Chest X-Ray 07/28/24 18:41 IMPRESSION: As above. Hip CT 07/29/24 08:57 IMPRESSION: 1. No evidence of active hemorrhage or large hematoma. Expected postoperative changes about the RIGHT hip. Scrotum Ultrasound 07/30/24 09:03 IMPRESSION: 1. Heterogeneous right testis. This could represent contusion in the setting of trauma. 2. Large left-sided hydrocele Recent Clincial Data Last Vital Signs Temp 97.5 F L 07/30/24 08:00 Pulse 86 07/30/24 09:00 Resp 8 L 07/30/24 09:00 BP 127/76 07/30/24 09:00 Pulse Ox 98 07/30/24 09:00 O2 Del Method Room Air 07/30/24 09:00 O2 Flow Rate 2 07/29/24 00:00 Vital Signs Temp Pulse Resp BP Pulse Ox O2 Del Method 07/30/24 09:00 86 8 L 127/76 98 Room Air 07/30/24 08:00 97.5 F L 83 10 L 114/71 99 Room Air 07/30/24 07:49 87 16 100 Room Air 07/30/24 07:00 84 6 L 142/49 99 Room Air 07/30/24 06:00 78 07/30/24 04:00 81 10 L 132/67 98 07/30/24 03:00 82 9 L 114/44 97 07/30/24 02:00 83 14 138/51 97 07/30/24 01:00 80 8 L 91/74 98 Intake & Output/Weight 07/28/24 07/29/24 07/30/24 07/31/24 06:59 06:59 06:59 06:59 Intake Total 1560.85 / 1560.85 828.771 / 056.387 7123.324 / 2579.324 250 / 250 Output Total 5070 / 5070 1875 / 1875 550 / 550 Balance -3509.15 / -3509.15 -1046.229 / -5280.531 3393.324 / 2029.324 250 / 250 Weight 120.202 kg 118.614 kg Vitals Last Vital Signs Temp 97.5 F L 07/30/24 08:00 Pulse 86 07/30/24 09:00 Resp 8 L 07/30/24 09:00 BP 127/76 07/30/24 09:00 Pulse Ox 98 07/30/24 09:00 O2 Del Method Room Air 07/30/24 09:00 O2 Flow Rate 2 07/29/24 00:00 TS Medications Medications Acetaminophen (Acetaminophen 325 Mg Tablet) 650 mg PO Q6H PRN PRN Reason: Mild/Mod Pain Or Temp >/= 101 Acetaminophen (Acetaminophen 500 Mg Tablet) 1,000 mg PO Q8H [facility] Last Admin: 07/30/24 10:34 Dose: Not Given Hydrocodone Bitart/Acetaminophen (Hydrocodone-Acetaminophen 5-325 Mg Tablet) 1 tab PO Q4H PRN PRN Reason: MODERATE PAIN Last Admin: 07/30/24 10:28 Dose: 1 tab Albuterol Sulfate (Albuterol 2.5 Mg/0.5 Ml Neb) 2.5 mg INHALATION Q4H.RESPIRATORY PRN PRN Reason: WHEEZING Atorvastatin Calcium (Atorvastatin 40 Mg Tablet) 80 mg PO DAILY [facility] Last Admin: 07/30/24 08:39 Dose: 80 mg Calcium Carbonate (Calcium Carbonate 500 Mg Chew Tablet) 1,000 mg PO BID [facility] Last Admin: 07/30/24 08:34 Dose: 1,000 mg Cefepime HCl (Cefepime 1,000 Mg Sdv) 1,000 mg IVP Q24H [facility]; Protocol Last Admin: 07/29/24 22:59 Dose: 1,000 mg Chlorhexidine Gluconate (Chlorhexidine Gluconate 0.12% Btl 473 Ml) 30 ml MUCOUS MEM QID [facility] Last Admin: 07/30/24 08:36 Dose: 30 ml Cyanocobalamin (Cyanocobalamin 1,000 Mcg Tablet) 1,000 mcg PO DAILY [facility] Last Admin: 07/30/24 08:35 Dose: 1,000 mcg Cyclobenzaprine HCl (Cyclobenzaprine 10 Mg Tablet) 5 mg PO TID PRN PRN Reason: MUSCLE SPASMS Last Admin: 07/28/24 08:15 Dose: 5 mg Escitalopram Oxalate (Escitalopram 10 Mg Tablet) 10 mg PO QPM [facility] Last Admin: 07/29/24 17:26 Dose: 10 mg Folic Acid (Folic Acid 1 Mg Tablet) 1 mg PO DAILY [facility] Last Admin: 07/30/24 08:35 Dose: 1 mg Glucagon (Glucagon 1 Mg/Ml Kit 1 Ml) 1 mg IM ONCE PRN; Protocol PRN Reason: Adult Acute Hypoglycemia Nursing Prot. Dextrose (D5w) 500 mls @ 0 mls/hr IV ONCE PRN; Protocol PRN Reason: Adult Acute Hypoglycemia Prot Dextrose (D10w) 125 mls @ 750 mls/hr IV PRN PRN; Protocol PRN Reason: Adult Acute Hypoglycemia Nursing Protocol Dextrose (D10w) 250 mls @ 1,000 mls/hr IV PRN PRN; Protocol PRN Reason: Adult Acute Hypoglycemia Nursing Protocol Amiodarone HCl/Dextrose (Nexterone) 360 mg in 200 mls @ 0 mls/hr IV .Q0M [facility]; Protocol Last Admin: 07/30/24 02:31 Dose: 0.5 mg/min, 16.67 mls/hr Norepinephrine Bitartrate (Levophed) 4 mg in 250 mls @ 0 mls/hr IV .Q0M [facility]; Protocol Last Titration: 07/29/24 07:00 Dose: 0 mcg/min, 0 mls/hr Iron Sucrose 200 mg/ Sodium (Chloride) 110 mls @ 220 mls/hr IV Q24H [facility] Stop: 08/01/24 09:59 Last Admin: 07/30/24 10:22 Dose: 220 mls/hr Insulin Human Lispro (Insulin Lispro 100 Unit/1 Ml) 0 unit SUBCUT WM&BEDTIME [facility]; Protocol Last Admin: 07/30/24 12:03 Dose: 6 unit Metoclopramide HCl (Metoclopramide 5 Mg/Ml Sdv 2 Ml) 10 mg IVP ONCE PRN PRN Reason: N/V unrelieved by maren Metoprolol Tartrate (Metoprolol Tartrate 25 Mg Tablet) 12.5 mg PO BID@0900,2100 [facility] Last Admin: 07/30/24 08:34 Dose: 12.5 mg Multivitamins Therapeutic (Multivitamin Therapeutic Tablet) 1 tab PO DAILY [facility] Last Admin: 07/30/24 08:40 Dose: 1 tab Mupirocin (Mupirocin Oint 22 Gm) 1 applic NASAL BID [facility]; Protocol Stop: 08/02/24 17:59 Last Admin: 07/30/24 08:36 Dose: 1 applic Naloxone HCl (Naloxone 0.4 Mg/Ml Sdv) 0.1 mg IVP Q2M PRN PRN Reason: OPIATERV Non-Formulary Medication (Ursodiol) 900 mg PO QPM [facility] Last Admin: 07/29/24 17:27 Dose: 900 mg Non-Formulary Medication (Ursodiol) 600 mg PO DAILY [facility] Last Admin: 07/30/24 08:35 Dose: 600 mg Ondansetron HCl (Ondansetron 2 Mg/Ml Sdv 2 Ml) 4 mg IVP Q8H PRN PRN Reason: vomiting, or N/V if npo Pantoprazole Sodium (Pantoprazole Dr 40 Mg Tablet) 40 mg PO BID [facility] Last Admin: 07/30/24 08:35 Dose: 40 mg Polysaccharide Iron Complex (Iron Polysaccharide Complex 150 Mg Capsule) 150 mg PO BIDWM [facility] On Hold: 07/29/24 08:57 Last Admin: 07/29/24 07:34 Dose: 150 mg Senna/Docusate Sodium (Sennosides-Docusate Tablet) 2 tab PO BID [facility] Last Admin: 07/30/24 08:34 Dose: 2 tab Vancomycin HCl (Vancomycin 1,000 Mg Sdv (Pharmacy Mix)) 0 mg XX PRN PRN PRN Reason: Pharmacy to Dose Vitamin D (Cholecalciferol (Vitamin D3) 1,000 Unit Tablet) 1,000 unit PO DAILY [facility] Last Admin: 07/30/24 08:35 Dose: 1,000 unit Discontinued Medications Albuterol Sulfate (Albuterol 2.5 Mg/3 Ml Neb) 2.5 mg INHALATION ONCE PRN PRN Reason: WHEEZING Amiodarone HCl (Amiodarone 50 Mg/Ml Sdv 3 Ml) 150 mg IVP ONCE ONE Stop: 07/28/24 18:35 Last Admin: 07/28/24 20:14 Dose: Not Given Aspirin (Aspirin 81 Mg Ec Tablet) 81 mg PO DAILY [facility] Last Admin: 07/28/24 08:16 Dose: 81 mg Carvedilol (Carvedilol 12.5 Mg Tablet) 12.5 mg PO BID [facility] Last Admin: 07/25/24 07:55 Dose: 12.5 mg Cefazolin Sodium (Cefazolin 2,000 Mg Sdv) 2,000 mg IVP [employer]ISH[employer] ONE; Protocol Stop: 07/28/24 15:19 Last Admin: 07/28/24 15:33 Dose: 2,000 mg Cefazolin Sodium (Cefazolin 2,000 Mg Sdv) 2,000 mg IVP Q8H [facility]; Protocol Stop: 07/29/24 15:31 Last Admin: 07/29/24 16:57 Dose: 2,000 mg Citric Acid/Sodium Citrate (Citric Acid-Sodium Citrate 30 Ml Udc) 60 ml PO ONCE ONE Stop: 07/27/24 20:12 Last Admin: 07/27/24 22:12 Dose: 60 ml Enoxaparin Sodium (Enoxaparin 30 Mg/0.3 Ml Syringe) 30 mg SUBCUT Q24H [facility] Ephedrine Sulfate (Ephedrine 50 Mg/Ml Inj) Confirm Administered Dose 50 mg .ROUTE .[place]-Zappedy ONE Stop: 07/28/24 17:28 Epoetin Rell (Epoetin Rell 40,000 Unit/Ml Inj) 40,000 unit SUBCUT NOW ONE Stop: 07/30/24 07:01 Last Admin: 07/30/24 07:24 Dose: Not Given Epoetin Rell-epbx (Epoetin Rell-Epbx 40,000 Unit/Ml Sdv (Esrd)) 40,000 unit SUBCUT NOW ONE Stop: 07/30/24 07:16 Last Admin: 07/30/24 07:52 Dose: 40,000 unit Famotidine (Famotidine 20 Mg/2 Ml Inj) 20 mg IVP ONCE PRN PRN Reason: HEARTBURN Fentanyl (Fentanyl 50 Mcg/Ml Inj 2ml) Confirm Administered Dose 100 mcg .ROUTE .Amlogic ONE Stop: 07/28/24 15:05 Fentanyl (Fentanyl 50 Mcg/Ml Inj 2ml) 50 mcg IVP Q10M PRN PRN Reason: Preop Pain Fentanyl (Fentanyl 50 Mcg/Ml Inj 2ml) 100 mcg IVP ONCE PRN PRN Reason: Per anesthesia for block Furosemide (Furosemide 10 Mg/Ml Sdv 10ml) 60 mg IVP ONCE ONE Stop: 07/27/24 09:22 Last Admin: 07/27/24 09:42 Dose: 60 mg Furosemide (Furosemide 10 Mg/Ml Sdv 10ml) 60 mg IVP ONCE ONE Stop: 07/27/24 12:01 Last Admin: 07/27/24 12:32 Dose: 60 mg Furosemide (Furosemide 10 Mg/Ml Sdv 10ml) 60 mg IVP ONCE ONE Stop: 07/27/24 20:12 Last Admin: 07/27/24 22:12 Dose: 60 mg Furosemide (Furosemide 10 Mg/Ml Sdv 4ml) 40 mg IVP ONCE ONE Stop: 07/30/24 11:36 Last Admin: 07/30/24 12:03 Dose: 40 mg Heparin Sodium (Porcine) (Heparin 5,000 Unit/Ml Inj 1 Ml) 0 unit IVP PRN PRN; Protocol PRN Reason: Heparin Weight Based Protocol -Subsequent Bolus Last Admin: 07/27/24 14:26 Dose: 4,400 unit Heparin Sodium (Porcine) (Heparin 5,000 Unit/Ml Inj 1 Ml) 0 unit IVP ONCE ONE; Protocol Stop: 07/23/24 19:40 Last Admin: 07/23/24 20:40 Dose: 5,500 unit Hydralazine HCl (Hydralazine 20 Mg/Ml Inj 1 Ml) 10 mg IVP Q4H PRN PRN Reason: SBP > 160 Sodium Chloride (Sodium Chloride 0.9%) 1,000 mls @ 999 mls/hr IV .Q1H1M ONE Stop: 07/23/24 14:22 Last Infusion: 07/23/24 14:57 Dose: Infused Sodium Chloride (Sodium Chloride 0.9%) 1,000 mls @ 999 mls/hr IV .Q1H1M ONE Stop: 07/23/24 14:37 Last Infusion: 07/23/24 14:57 Dose: Infused Sodium Chloride (Sodium Chloride 0.9%) 1,000 mls @ 75 mls/hr IV .[id number] [facility] Last Infusion: 07/27/24 12:12 Dose: Infused Heparin Sodium/Sodium Chloride (Heparin Drip) 25,000 unit in 500 mls @ 0 mls/hr IV CONT [facility]; Protocol Last Admin: 07/27/24 18:02 Dose: 8.34 unit/kg/hr, 18 mls/hr Sodium Chloride (Sodium Chloride 0.9%) 1,000 mls @ 500 mls/hr IV .Q2H ONE Stop: 07/25/24 06:08 Last Infusion: 07/25/24 06:25 Dose: Infused Sodium Chloride (Sodium Chloride 0.9%) 250 mls @ 250 mls/hr IV ONCE ONE Stop: 07/25/24 13:51 Last Infusion: 07/25/24 14:36 Dose: Infused Levetiracetam (Keppra) 500 mg in 100 mls @ 400 mls/hr IV Q12H [facility] Iron Sucrose 200 mg/ Sodium (Chloride) 110 mls @ 220 mls/hr IV ONCE ONE Stop: 07/27/24 14:29 Last Infusion: 07/27/24 14:48 Dose: Infused Heparin Sodium/Sodium Chloride (Heparin Drip) 25,000 unit in 500 mls @ 0 mls/hr IV CONT [facility]; Protocol Last Titration: 07/28/24 08:11 Dose: Infused Lidocaine HCl (Xylocaine) Confirm Administered Dose 10 mls @ as directed .ROUTE .[facility] ONE Stop: 07/28/24 15:05 Sodium Chloride (Sodium Chloride 0.9%) 1,000 mls @ 30 mls/hr IV .Q24H [facility] Stop: 07/29/24 15:14 Last Infusion: 07/29/24 20:17 Dose: Infused Albumin Human (Albumin) Confirm Administered Dose 25.0 gm in 500 mls @ as directed .ROUTE .[facility] ONE Stop: 07/28/24 15:33 Sodium Chloride (Sodium Chloride 0.9%) 1,000 mls @ 100 mls/hr IV .Q10H [facility] Amiodarone HCl/Dextrose (Nexterone) 150 mg in 100 mls @ 400 mls/hr IV ONCE ONE Stop: 07/28/24 20:27 Last Infusion: 07/29/24 02:28 Dose: Infused Vancomycin HCl / Sodium (Chloride) 250 mls @ 0 mls/hr [id number] PROTOCOL [facility]; Protocol Vancomycin HCl (Vancocin) 1,750 mg in 350 mls @ 175 mls/hr IV ONCE ONE Stop: 07/30/24 00:29 Last Infusion: 07/30/24 01:08 Dose: Infused Iohexol (Iohexol 350 Mg/Ml 500 Ml Btl (Per Ml)) 0 ml IV ONCE ONE Stop: 07/23/24 14:37 Last Admin: 07/23/24 14:37 Dose: 100 ml Ipratropium [place] (Ipratropium 0.5 Mg/2.5 Ml Neb) 0.5 mg INHALATION ONCE PRN PRN Reason: WHEEZING Lidocaine HCl (Lidocaine 1% Inj 20 Ml) 0.1 ml INTRADERMA PRN PRN PRN Reason: anesthetic prior to IV start Stop: 07/29/24 15:06 Lisinopril (Lisinopril 20 Mg Tablet) 20 mg PO DAILY SAHIL Lorazepam (Lorazepam 1 Mg/0.5 Ml Injection) 0.5 mg IVP ONCE ONE Stop: 07/23/24 15:01 Last Admin: 07/23/24 15:07 Dose: 0.5 mg Metoclopramide HCl (Metoclopramide 5 Mg/Ml Sdv 2 Ml) 10 mg IVP ONCE PRN PRN Reason: N/V if zofran ineffective Midazolam HCl (Midazolam 1 Mg/Ml Inj 2 Ml) 2 mg IVP Q5M PRN PRN Reason: Preop Anxiety Midazolam HCl (Midazolam 1 Mg/Ml Inj 5 Ml) 5 mg IVP ONCE PRN PRN Reason: Per anesthesia for block Morphine Sulfate (Morphine 4 Mg/Ml Sdv 1 Ml) 4 mg IVP ONCE ONE Stop: 07/23/24 13:51 Last Admin: 07/23/24 14:03 Dose: 4 mg Morphine Sulfate (Morphine 4 Mg/Ml Sdv 1 Ml) 2 mg IVP Q4H PRN PRN Reason: SEVERE PAIN Last Admin: 07/24/24 14:47 Dose: 2 mg Morphine Sulfate (Morphine 4 Mg/Ml Sdv 1 Ml) 4 mg IVP Q4H PRN PRN Reason: BREAKTHROUGH PAIN Last Admin: 07/29/24 19:46 Dose: 4 mg Naloxone HCl (Naloxone 0.4 Mg/Ml Sdv) 0.1 mg IVP Q2M PRN PRN Reason: Respiratory rate less than 8. Ondansetron HCl (Ondansetron 2 Mg/Ml Sdv 2 Ml) 4 mg IVP ONCE ONE Stop: 07/23/24 13:51 Last Admin: 07/23/24 14:03 Dose: 4 mg Ondansetron HCl (Ondansetron 2 Mg/Ml Sdv 2 Ml) 4 mg IVP Q5M PRN PRN Reason: NAUSEA AND VOMITING Ondansetron HCl (Ondansetron 2 Mg/Ml Sdv 2 Ml) Confirm Administered Dose 4 mg .ROUTE .STK-MED ONE Stop: 07/28/24 16:24 Ondansetron HCl (Ondansetron 2 Mg/Ml Sdv 2 Ml) 4 mg IVP Q6H PRN PRN Reason: NAUSEA AND VOMITING Oxycodone/Acetaminophen (Oxycodone-Apap 5-325 Mg Tablet) 1 tab PO Q4H PRN PRN Reason: SEVERE PAIN Last Admin: 07/28/24 08:15 Dose: 1 tab Oxycodone/Acetaminophen (Oxycodone-Apap 5-325 Mg Tablet) 1 tab PO Q4H PRN PRN Reason: SEVERE PAIN Pantoprazole Sodium (Pantoprazole Dr 40 Mg Tablet) 40 mg PO DAILY SAHIL Propofol (Propofol 10 Mg/Ml Sdv 20 Ml) Confirm Administered Dose 200 mg .ROUTE .STK-MED ONE Stop: 07/28/24 15:05 Rocuronium [place] (Rocuronium 10 Mg/Ml Inj 5ml) Confirm Administered Dose 50 mg .ROUTE .STK-MED ONE Stop: 07/28/24 15:11 Scopolamine (Scopolamine 1 Mg Patch) 1 patch TRANSDERMA ONCE PRN PRN Reason: Nausea/ Vomiting Prophylaxis Sugammadex Sodium (Sugammadex 200 Mg/2 Ml Sdv) Confirm Administered Dose 200 mg .ROUTE .STK-MED ONE Stop: 07/28/24 17:00 Allergies lovastatin Allergy (Verified 05/17/24 11:31) RASH blood Allergy (Unknown, Uncoded 07/23/24 20:01) [facility] Home Medications pantoprazole 40 mg tablet,delayed release 40 mg PO BID 11/19/20 [History Confirmed 07/23/24] fluticasone propionate 50 mcg/actuation nasal spray,suspension 2 spray intranasal DAILY PRN Nasal Congestion 09/18/21 [History Confirmed 07/23/24] glipizide 10 mg tablet, extended release 24 hr 10 mg PO DAILY 09/18/21 [History Confirmed 07/23/24] triamterene 75 mg-hydrochlorothiazide 50 mg tablet 1 tab PO DAILY 12/18/21 [History Confirmed 07/23/24] furosemide 20 mg tablet (Lasix) 20 mg PO DAILY PRN Edema 11/16/23 [History Confirmed 07/23/24] carvedilol 12.5 mg tablet 12.5 mg PO BID #180 tabs 03/28/24 [Rx Confirmed 07/23/24] hydralazine 25 mg tablet 25 mg PO BID #180 tabs 03/28/24 [Rx Confirmed 07/23/24] multivitamin (Multiple Vitamins tablet) 1 tab PO DAILY 03/28/24 [History Confirmed 07/23/24] insulin glargine 100 unit/mL (3 mL) subcutaneous pen (Lantus Solostar U-100 Insulin) 35 unit SUBCUT BID 05/17/24 [History Confirmed 07/23/24] lisinopril 20 mg tablet 20 mg PO DAILY 05/17/24 [History Confirmed 07/23/24] rosuvastatin 40 mg tablet 40 mg PO DAILY #30 tabs 05/18/24 [Rx Confirmed 07/23/24] potassium chloride 10 mEq tablet,extended release 10 meq PO BID 06/10/24 [History Confirmed 07/23/24] rivaroxaban 20 mg tablet (Xarelto) See Rx Instructions .Route .COMPLEX #30 tabs 07/18/24 [Rx Confirmed 07/23/24] albuterol sulfate 90 mcg/actuation aerosol inhaler 2 puff inhalation .Q4-6H 07/23/24 [History Confirmed 07/23/24] clopidogrel 75 mg tablet 75 mg PO DAILY 07/23/24 [History Confirmed 07/23/24] escitalopram oxalate 10 mg tablet 10 mg PO QPM 07/23/24 [History Confirmed 07/23/24] prednisone 20 mg tablet 40 mg PO DAILY 07/23/24 [History Confirmed 07/23/24] ursodiol 300 mg capsule 1,500 mg PO DAILY 07/23/24 [History Confirmed 07/23/24] Discharge Plan Discharge Patient Disposition: Xfer Other Condition: Stable Prescriptions: No Action pantoprazole 40 mg tablet,delayed release (DR/EC) 40 mg PO BID triamterene-hydrochlorothiazid 75-50 mg tablet 1 tab PO DAILY furosemide [Lasix] 20 mg tablet 20 mg PO DAILY PRN (Reason: Edema) multivitamin [Multiple Vitamins] Tablet 1 tab PO DAILY carvedilol 12.5 mg tablet 12.5 mg PO BID Qty: 180 3RF Rx Instructions: must administer with a meal/food hydralazine 25 mg tablet 25 mg PO BID Qty: 180 3RF Xarelto 20 mg tablet See Rx Instructions .ROUTE .COMPLEX Qty: 30 0RF Dose Instruction: TAKE 1 TABLET BY MOUTH DAILY; must administer with evening meal Rx Instructions: TAKE 1 TABLET BY MOUTH DAILY; must administer with evening meal glipizide 10 mg tablet extended release 24hr 10 mg PO DAILY fluticasone propionate 50 mcg/actuation [place],Suspension 2 spray INTRANASAL DAILY PRN (Reason: Nasal Congestion) Rx Instructions: administer into each nostril lisinopril 20 mg tablet 20 mg PO DAILY insulin glargine [Lantus Solostar U-100 Insulin] 100 unit/mL (3 mL) insulin pen 35 unit SUBCUT BID rosuvastatin 40 mg tablet 40 mg PO DAILY Qty: 30 0RF potassium chloride 10 mEq tablet extended release 10 meq PO BID prednisone 20 mg tablet 40 mg PO DAILY clopidogrel 75 mg tablet 75 mg PO DAILY ursodiol 300 mg capsule 1,500 mg PO DAILY Rx Instructions: TAKE 5 CAPSULES BY MOUTH ONCE DAILY IN 2-3 DIVIDED DOSES albuterol sulfate 90 mcg/actuation HFA aerosol inhaler 2 puff INHALATION .Q4-6H escitalopram oxalate 10 mg tablet 10 mg PO QPM Referrals: Humberto Griggs DO [Primary Care Provider, [facility]] Patient Instructions: Acute Wound Care (DC), Post Anesthesia Care Transfer Attestations Time Spent in Transfer Care: greater than 30 min Quality Metrics Clinical Quality Measures [ No reported AMI, CVA or VTE this stay] Coding Level of Care Code 75507 Total time (in minutes) for Discharge: 75 Diagnoses Acute kidney injury superimposed on CKD N17.9; N18.9
--- NOTE | 2024-07-30 14:17 | P.PN_ITS ---
Subjective 2 Subjective: Remains stable vital bella however hemoglobin is low less than seven 6.9. Medications: Reviewed: Yes Vitals/I&O/Wt Last Vital Signs Temp 97.8 F 07/30/24 12:00 Pulse 70 07/30/24 12:00 Resp 13 07/30/24 12:00 BP 116/38 07/30/24 12:00 Pulse Ox 98 07/30/24 12:00 O2 Del Method Room Air 07/30/24 12:00 O2 Flow Rate 2 07/29/24 00:00 07/29/24 07/30/24 07/30/24 22:59 06:59 14:59 Intake Total 1250 / 2048.454 530.87 / 2579.324 710 / 710 Output Total 375 / 375 175 / 550 Balance 875 / 1673.454 355.87 / 2028.324 710 / 710 Weight last 48 hrs Weight 261 lb 8 oz Physical Exam 2 Const: OTHER: GENERAL: Patient is alert, awake and oriented x3. Not in acute distress HEART: Irregularly irregular S1 and S2. No murmur, rub or gallop. LUNGS: Decreased breath sound bilaterally, no crackles. CENTRAL NERVOUS SYSTEM: Grossly nonfocal. EXTREMITIES: Lower extremities with out edema bilaterally. Urinary Catheter Management: Huber: Cath Placed During This Visit: yes Reason for Continuing Indwelling Catheter: Accurate Measurement of Urinary Output in Critically Ill Patients Urinary Catheter Date of Insertion: 07/23/24 Data 07/30/24 04:41 07/30/24 04:41 Micro: Microbiology 07/29/24 22:58 Blood Culture - Preliminary Blood SPECIMEN COLLECTED 07/29/24 22:50 Blood Culture - Preliminary Blood SPECIMEN COLLECTED A&P Assessment and plan (1) Atrial fibrillation with controlled ventricular rate: (2) Shock: Plan Switch to beta-yany, discontinue amiodarone Patient and family would like to go to [facility] for possible dialysis PDMP PDMP Reviewed: Not Reviewed Attestations 2 Medical Necessity Statement*: As per medicine Coding Level of Care Code Acute Code for Chg Fwd Diagnoses Atrial fibrillation with controlled ventricular rate I48.91 Shock R57.9
--- NOTE | 2024-07-30 14:40 | PC.NURSE ---
Report called to Nataly Alston RN at [facility].
--- NOTE | 2024-07-30 14:53 | PC.NURSE ---
Discontinued left radial A-line
--- NOTE | 2024-07-30 15:33 | PC.NURSE ---
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 Hand off report given.
== END 2024-07-30 15:35 | disposition home or self-care (01) | DRG 480 ==
LOC: ER 15:28 → MEDSURG 15:56 → ICU 07-28 18:48
PROVIDERS: Internal Medicine; Orthopaedic Surgery; Student in an Organized Health Care Education/Training Program; Admitting Provider Student in an Organized Health Care Education/Training Program; Emergency Provider Emergency Medicine; PCP Electrodiagnostic Medicine; Visit Provider Internal Medicine
PROC: (CPT 27245; principal; 2024-07-28 13:50)
DX: S72.141A Displaced intertrochanteric fracture of right femur, initial encounter for closed fracture (principal); N17.0 Acute kidney failure with tubular necrosis; R57.1 Hypovolemic shock; I13.0 Hypertensive heart and chronic kidney disease with heart failure and stage 1 through stage 4 chronic kidney disease, or unspecified chronic kidney disease; I50.32 Chronic diastolic (congestive) heart failure; E87.1 Hypo-osmolality and hyponatremia; E87.20 Acidosis, unspecified; W18.30XA Fall on same level, unspecified, initial encounter; I48.91 Unspecified atrial fibrillation; E11.22 Type 2 diabetes mellitus with diabetic chronic kidney disease; N18.30 Chronic kidney disease, stage 3 unspecified; E11.51 Type 2 diabetes mellitus with diabetic peripheral angiopathy without gangrene; Z86.73 Personal history of transient ischemic attack (TIA), and cerebral infarction without residual deficits; K21.9 Gastro-esophageal reflux disease without esophagitis; Z79.01 Long term (current) use of anticoagulants; Z79.02 Long term (current) use of antithrombotics/antiplatelets; I95.9 Hypotension, unspecified; I95.81 Postprocedural hypotension; R13.10 Dysphagia, unspecified; R23.3 Spontaneous ecchymoses; N43.3 Hydrocele, unspecified; Z79.84 Long term (current) use of oral hypoglycemic drugs; D50.0 Iron deficiency anemia secondary to blood loss (chronic); E86.0 Dehydration; R00.0 Tachycardia, unspecified; R33.9 Retention of urine, unspecified; E86.1 Hypovolemia; Z87.891 Personal history of nicotine dependence; N28.89 Other specified disorders of kidney and ureter; N40.0 Benign prostatic hyperplasia without lower urinary tract symptoms; Z79.4 Long term (current) use of insulin
CPT/HCPCS: 36415; 36416; 51702; 70450; 71045; 73502; 73700; 74177; 76000; 76870; 80048; 80053; 81001; 82728; 82962; 83540; 83550; 83735; 84100; 85007; 85025; 85045; 85610; 85611; 85730; 86850; 86900; 87040; 87077; 87086; 87186; 92523; 92526; 92610; 93005; 93306; 93308; 94664; 96372; 96374; 96375; 96376; 97110; 99285; A4222; C1713; J0283; J0690; J0692; J1644; J1756; J1815; J1938; J1940; J2060; J2270; J2405; J2704; J3010; J3372; J3490; J7030; J7050; J9999; P9045; Q3014; Q5105

== ENCOUNTER 2024-08-11 22:14 | Emergency (ER) | payer MEDICARE, OTHER, SELFPAY ==
[2024-08-11 22:16] VITALS: BP 159/75; PULSE 82; RESP 16; TEMP 36.3; O2SAT 99; BMI 30.8
--- NOTE | 2024-08-11 22:17 | PC.NURSE ---
inspected wound. surgical incision of R hip is intact. very small amount of serosanguineous fluid noted to be oozing from upper surgical incision. no dehiscence noted. new dressing applied.
[2024-08-11 22:56] VITALS: BP 138/67; PULSE 70; RESP 16; O2SAT 98
--- NOTE | 2024-08-11 22:56 | PC.NURSE ---
Pt has about a quarter size amount of bloody drainage on dressing, nurse is able to visualize a small area of incision that has some very light bleeding
[2024-08-12 01:32] VITALS: BP 102/54; PULSE 62; RESP 16; O2SAT 98
--- NOTE | 2024-08-12 06:19 | W.ED.GENADLT ---
HPI - General Adult General: Chief complaint: General Medical Stated complaint: Post R hip surgery bleeding Time Seen by Provider: 08/12/24 05:23 Source: patient Mode of arrival: ambulatory Limitations: no limitations History of Present Illness: 79-year-old male who had right hip surgery 2 and half weeks ago he is at [facility] [place] he states he has had some bleeding from his wound. He denies any pain denies any fever states that seem to happen after his physical therapy. Associated symptoms: Deny chest pain, dyspnea, headache(s), nausea, rash or vomiting Related Data Home Medications ?Medication ?Instructions ?Recorded ?Confirmed pantoprazole 40 mg tablet,delayed 40 mg PO BID 11/19/20 07/23/24 release fluticasone propionate 50 2 spray intranasal DAILY PRN Nasal 09/18/21 07/23/24 mcg/actuation nasal Congestion spray,suspension glipizide 10 mg tablet, extended 10 mg PO DAILY 09/18/21 07/23/24 release 24 hr triamterene 75 1 tab PO DAILY 12/18/21 07/23/24 mg-hydrochlorothiazide 50 mg tablet furosemide 20 mg tablet (Lasix) 20 mg PO DAILY PRN Edema 11/16/23 07/23/24 multivitamin (Multiple Vitamins 1 tab PO DAILY 03/28/24 07/23/24 tablet) insulin glargine 100 unit/mL (3 35 unit SUBCUT BID 05/17/24 07/23/24 mL) subcutaneous pen (Lantus Solostar U-100 Insulin) lisinopril 20 mg tablet 20 mg PO DAILY 05/17/24 07/23/24 potassium chloride 10 mEq 10 meq PO BID 06/10/24 07/23/24 tablet,extended release albuterol sulfate 90 mcg/actuation 2 puff inhalation .Q4-6H 07/23/24 07/23/24 aerosol inhaler clopidogrel 75 mg tablet 75 mg PO DAILY 07/23/24 07/23/24 escitalopram oxalate 10 mg tablet 10 mg PO QPM 07/23/24 07/23/24 prednisone 20 mg tablet 40 mg PO DAILY 07/23/24 07/23/24 ursodiol 300 mg capsule 1,500 mg PO DAILY 07/23/24 07/23/24 Previous Rx's ?Medication ?Instructions ?Recorded carvedilol 12.5 mg tablet 12.5 mg PO BID #180 tabs 03/28/24 hydralazine 25 mg tablet 25 mg PO BID #180 tabs 03/28/24 rosuvastatin 40 mg tablet 40 mg PO DAILY #30 tabs 05/18/24 rivaroxaban 20 mg tablet (Xarelto) See Rx Instructions .Route 07/18/24 .COMPLEX #30 tabs Allergies Allergy/AdvReac Type Severity Reaction Status Date / Time lovastatin Allergy RASH Verified 05/17/24 11:31 blood Allergy Unknown Trisha'alicia Uncoded 07/23/24 20:01 witness Review of Systems Const: Denies: fever(s), chills, body aches or change in appetite ENMT: Denies: throat pain or dental pain Card: Denies: chest pain Resp: Denies: dyspnea GI: Denies: abdominal pain, nausea, vomiting or diarrhea Musc: Denies: neck pain or back pain Skin/Breast: Denies: rash Neuro: Denies: headache(s) PFSH ED PFSH: Medical History Hypertension Anticoagulation adequate with anticoagulant therapy Atrial fibrillation with controlled ventricular rate BPH (benign prostatic hyperplasia) Mass of right kidney Diabetes mellitus Acute cholecystitis Callus of foot Chronic ulcer of great toe of right foot, limited to breakdown of skin [place] Peripheral arterial disease Diabetic peripheral neuropathy associated with type 2 diabetes mellitus Diabetes mellitus GERD (gastroesophageal reflux disease) Venous insufficiency Prostatitis, acute Acute cystitis with hematuria Surgical History Hx of cholecystectomy Status post right inguinal hernia repair Status post colonoscopy (12/13/20) descending colon polyp H/O esophagogastroduodenoscopy (12/13/20) normal Hx of tonsillectomy Family History Mother , AT AGE 73 Cancer COLON Father , AT AGE 50 Diabetes Social History Smoking and tobacco/nicotine status: former use of tobacco/nicotine Alcohol intake: current Alcohol intake frequency: holidays/special occasions only Marital status: Current occupational status: retired Physical Exam Const: COMMON NORMALS: no acute distress, patient oriented x3 and healthy appearing HENMT: COMMON NORMALS: normocephalic and atraumatic HEAD & SCALP: normocephalic and atraumatic Neck/C-Spine: COMMON NORMALS: full ROM and supple Chest: COMMONS NORMALS: normal inspection of the chest Resp: COMMON NORMALS: normal respiratory effort Cardio: COMMON NORMALS: regular rate RATE: regular rate Extremity: COMMON NORMALS: normal to inspection and full ROM NARRATIVE EXTREMITY EXAM: Incisions clean dry and intact some very slight serosanguineous drainage from the wound no large amount of drainage no bleeding at this time Neuro: COMMON NORMALS: patient oriented x3, moves all extremities and no focal motor deficits Psych: COMMON NORMALS: mental status grossly normal, Normal thought process present and cooperative THOUGHT PROCESS: Normal thought process present Skin: COMMON NORMALS: no rashes or lesions noted and no wounds GENERAL SKIN EXAM: no rashes or lesions noted Course Vital Signs: Vital signs: Vital Signs Temperature 97.4 F L 08/11/24 22:16 Pulse Rate 62 08/12/24 01:32 Respiratory Rate 16 08/12/24 01:32 Blood Pressure 102/54 08/12/24 01:32 Pulse Oximetry 98 08/12/24 01:32 Oxygen Delivery Me thod Room Air 08/11/24 22:16 MDM - General Adult Medical Decision Making Patient presents here with concern bleeding from wound his hemoglobin here is normal he has no bleeding at this time wounds clean dry intact no signs of infection he stable for discharge follow-up PCP return if worsening. Medical Records I reviewed the patient's medical records. Lab Data I reviewed the patient's lab results. 08/12/24 06:17 Laboratory Results WBC 10.00 10^3/uL (3.29-11.43) 08/12/24 06:17 RBC 3.27 10^6/uL (3.85-5.65) L 08/12/24 06:17 Hgb 10.50 g/dL (11.27-16.99) L 08/12/24 06:17 Hct 35.5 % (37-53) L 08/12/24 06:17 MCV 108.6 fl (82-101) H 08/12/24 06:17 MCH 32.1 pg (27-33) 08/12/24 06:17 MCHC 29.6 g/dL (30-55) L 08/12/24 06:17 RDW 20.4 % (12.1-15.1) H 08/12/24 06:17 Plt Count 371 10^3/cmm (157-399) 08/12/24 06:17 MPV 8.9 fL (7.4-10.4) 08/12/24 06:17 Neut % (Auto) 74.2 % 08/12/24 06:17 Lymph % (Auto) 10.6 % 08/12/24 06:17 [place] % (Auto) 9.3 % 08/12/24 06:17 Eos % (Auto) 3.9 % 08/12/24 06:17 Baso % (Auto) 0.2 % 08/12/24 06:17 Neut # (Auto) 7.42 10^3/uL (1.8-7.7) 08/12/24 06:17 Lymph # (Auto) 1.1 10^3/uL (0.8-4.8) 08/12/24 06:17 [place] # (Auto) 0.9 10^3/uL (0.2-0.9) 08/12/24 06:17 Eos # (Auto) 0.4 10^3/uL (0.0-0.8) 08/12/24 06:17 Baso # (Auto) 0.0 10^3/uL (0.0-0.1) 08/12/24 06:17 Nucleated RBC % (auto) 0 % 08/12/24 06:17 Nucleated RBCs # 0.0 /100WBC 08/12/24 06:17 No radiology studies performed this visit Discharge Plan Discharge Patient Disposition: Home Clinical Impression: Visit for wound check Condition: Stable Prescriptions: No Action pantoprazole 40 mg tablet,delayed release (DR/EC) 40 mg PO BID triamterene-hydrochlorothiazid 75-50 mg tablet 1 tab PO DAILY furosemide [Lasix] 20 mg tablet 20 mg PO DAILY PRN (Reason: Edema) multivitamin [Multiple Vitamins] Tablet 1 tab PO DAILY carvedilol 12.5 mg tablet 12.5 mg PO BID Qty: 180 3RF Rx Instructions: must administer with a meal/food hydralazine 25 mg tablet 25 mg PO BID Qty: 180 3RF Xarelto 20 mg tablet See Rx Instructions .ROUTE .COMPLEX Qty: 30 0RF Dose Instruction: TAKE 1 TABLET BY MOUTH DAILY; must administer with evening meal Rx Instructions: TAKE 1 TABLET BY MOUTH DAILY; must administer with evening meal glipizide 10 mg tablet extended release 24hr 10 mg PO DAILY fluticasone propionate 50 mcg/actuation [place],Suspension 2 spray INTRANASAL DAILY PRN (Reason: Nasal Congestion) Rx Instructions: administer into each nostril lisinopril 20 mg tablet 20 mg PO DAILY insulin glargine [Lantus Solostar U-100 Insulin] 100 unit/mL (3 mL) insulin pen 35 unit SUBCUT BID rosuvastatin 40 mg tablet 40 mg PO DAILY Qty: 30 0RF potassium chloride 10 mEq tablet extended release 10 meq PO BID prednisone 20 mg tablet 40 mg PO DAILY clopidogrel 75 mg tablet 75 mg PO DAILY ursodiol 300 mg capsule 1,500 mg PO DAILY Rx Instructions: TAKE 5 CAPSULES BY MOUTH ONCE DAILY IN 2-3 DIVIDED DOSES albuterol sulfate 90 mcg/actuation HFA aerosol inhaler 2 puff INHALATION .Q4-6H escitalopram oxalate 10 mg tablet 10 mg PO QPM Discharge Orders: Discharge ED (Routine); Ordered 08/12/24 Ordered By: Ne Vasquez Referrals: Humberto Griggs DO [Primary Care Provider, Family Practice] - 4-7 days Discharge Diet: Advance as tolerated Discharge Activity: Resume usual activity Patient Instructions: Wound Care (General) Print Language: Ukrainian Coding Level of Care Code ED Bottom Buffer for Lois Greco
[2024-08-12 06:32] LABS: Basophils % 0.2 %; Eosinophils # 0.4 10^3/uL (0.0-0.8); Eosinophils % 3.9 %; Hematocrit 35.5 % (37-53); Lymphocytes # 1.1 10^3/uL (0.8-4.8); Lymphocytes % 10.6 %; Mean Corpuscular HGB Conc 29.6 g/dL (30-55); Mean Corpuscular Hemoglobin 32.1 pg (27-33); Mean Corpuscular Volume 108.6 fl (82-101); Mean Platelet Volume 8.9 fL (7.4-10.4); Monocytes # 0.9 10^3/uL (0.2-0.9); Monocytes % 9.3 %; Neutrophils # 7.42 10^3/uL (1.8-7.7); Neutrophils % 74.2 %; Nucleated Red Blood Cells % 0 %; Platelet Count 371 10^3/cmm (157-399); Red Blood Count 3.27 10^6/uL (3.85-5.65); Red Cell Distribution Width 20.4 % (12.1-15.1)
[2024-08-12 07:13] VITALS: BP 158/78; PULSE 80; RESP 18; O2SAT 100
== END 2024-08-12 08:00 | disposition home or self-care (01) ==
PROVIDERS: Emergency Provider Emergency Medicine; PCP Electrodiagnostic Medicine
DX: Z47.89 Encounter for other orthopedic aftercare (principal); I10 Essential (primary) hypertension; E11.42 Type 2 diabetes mellitus with diabetic polyneuropathy; E11.51 Type 2 diabetes mellitus with diabetic peripheral angiopathy without gangrene; Z87.891 Personal history of nicotine dependence; Z98.890 Other specified postprocedural states; Z79.01 Long term (current) use of anticoagulants; Z79.899 Other long term (current) drug therapy; Z79.4 Long term (current) use of insulin; Z79.85 Long-term (current) use of injectable non-insulin antidiabetic drugs; Z79.02 Long term (current) use of antithrombotics/antiplatelets
CPT/HCPCS: 85025; 99283

== ENCOUNTER → 2024-08-18 16:05 | Outpatient (BNVA) | payer MEDICARE, OTHER, SELFPAY | PROVIDERS: PCP Electrodiagnostic Medicine; Visit Provider Orthopaedic Surgery | DX: S72.002A Fracture of unspecified part of neck of left femur, initial encounter for closed fracture (principal); X58.XXXA Exposure to other specified factors, initial encounter | CPT/HCPCS: 73502; 99024 ==

== ENCOUNTER 2024-08-20 21:43 | Emergency (ER) | payer MEDICARE, OTHER, SELFPAY ==
[2024-08-20 21:46] VITALS: BMI 28.2
[2024-08-20 22:06] VITALS: BP 164/66; PULSE 87; RESP 18; TEMP 37.6; O2SAT 95
[2024-08-20 22:30] VITALS: BP 172/76; PULSE 85; O2SAT 94
--- NOTE | 2024-08-20 22:35 | CTR_ITS ---
PROCEDURE INFORMATION: Exam: CT Abdomen And Pelvis Without Contrast Exam date and time: 08/20/2024 11:01 PM Age: 79 years old Clinical indication: Nausea and vomiting and other: Hematuria; Prior surgery; Surgery date: <1 month; Surgery type: One month post op RT femoral nail. Gb. RT inguinal hernia. C/O n/v with hematuria. TECHNIQUE: Imaging protocol: Computed tomography of the abdomen and pelvis without contrast. Radiation optimization: All CT scans at this facility use at least one of these dose optimization techniques: automated exposure control; mA and/or kV adjustment per patient size (includes targeted exams where dose is matched to clinical indication); or iterative reconstruction. COMPARISON: CT abdomen pelvis w con* [id number] 07/23/2024 2:29 PM RADIATION DOSE METRICS: Total DLP (mGy-cm): 1136.03 FINDINGS: Lungs: Subtotal consolidation of the posteroinferior bilateral lower lobes. Pleural spaces: Small volume bilateral pleural effusions, [id number]-qjzb-left. Heart: Heart normal in size. Trace pericardial fluid. Liver: Normal. No mass. Gallbladder and biliary ducts: Gallbladder surgically absent. Pancreas: Normal. No ductal dilation. Spleen: Spleen normal in size and contour. Numerous internal calcifications consistent with prior granulomatous disease. Adrenal glands: Normal. No mass. Kidneys and ureters: Mild, nonspecific bilateral perinephric stranding. Bilateral cortical and parapelvic cysts, unchanged. Mild renal vascular calcification. No hydronephrosis or urolithiasis. Stomach and bowel: Unremarkable. No obstruction. No mucosal thickening. Appendix: No evidence of appendicitis. Intraperitoneal space: No free air. No free fluid. Vasculature: Severe atherosclerotic calcification of the aorta and major branch vessels without aneurysm. Lymph nodes: Unremarkable. No enlarged lymph nodes. Urinary bladder: Small focus of air within the urinary bladder lumen. No significant wall thickening or adjacent inflammation. Reproductive: Unremarkable as visualized. Bones/joints: Moderate lumbosacral spondylosis. Partially imaged ORIF hardware of the proximal right femur. Subacute fracture of the right femoral intratrochanteric region, fracture fragments grossly stable in alignment status post fixation. Expected right hip postsurgical joint effusion. Soft tissue swelling overlying the right hip with a curvilinear postsurgical seroma. Soft tissues: See Bones/joints finding. CT/CT kidney stone [id number] IMPRESSION: 1. Small focus of air within the urinary bladder lumen. No significant wall thickening or adjacent inflammation. This is presumed secondary to recent instrumentation, but could reflect developing cystitis. 2. Negative for hydronephrosis or urolithiasis. 3. Small volume bilateral pleural effusions, hqzki-tzewyod-tlhe-left. Subtotal consolidation of the posteroinferior bilateral lower lobes, probable atelectasis, additional pneumonitis not excluded.
--- NOTE | 2024-08-20 22:37 | ECG_ITS ---
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 Measurements Intervals [place] Rate: 71 P: 0 IN: 0 QRS: -22 QRSD: 78 T: 51 QT: 413 QTc: 451 Interpretive Statements ATRIAL FIBRILLATION LOW QRS VOLTAGE IN EXTREMITY LEADS [QRS DEFLECTION < 0.5 mV IN LIMB LEADS] PATTERN CONSISTENT WITH PULMONARY DISEASE SEPTAL MYOCARDIAL INFARCTION , PROBABLY OLD [40+ ms Q WAVE IN V1/V2] Compared to ECG 07/28/2024 17:36:44 No significant changes Electronically Signed On 08-23-2024 11:41:04 CDT by Duane Mccullough M.D. [email or web address]
--- NOTE | 2024-08-20 22:49 | W.ED.MALEGU ---
HPI - Male Genitourinary General: Chief complaint: Urogenital-Male Stated complaint: n/v, possible kidney stone Time Seen by Provider: 08/20/24 21:56 History of Present Illness: 79-year-old gentleman who is in a longterm following hip surgery. He had hip surgery 3 weeks ago. He had a catheter until last Thursday, which was pulled. He has had decreased urination. Some blood in his urine, and some bleeding from his penis today. He is more swollen this week than he was last week. Related Data Home Medications ?Medication ?Instructions ?Recorded ?Confirmed pantoprazole 40 mg tablet,delayed 40 mg PO BID 11/19/20 08/18/24 release fluticasone propionate 50 2 spray intranasal DAILY PRN Nasal 09/18/21 08/18/24 mcg/actuation nasal Congestion spray,suspension glipizide 10 mg tablet, extended 10 mg PO DAILY 09/18/21 08/18/24 release 24 hr triamterene 75 1 tab PO DAILY 12/18/21 08/18/24 mg-hydrochlorothiazide 50 mg tablet furosemide 20 mg tablet (Lasix) 20 mg PO DAILY PRN Edema 11/16/23 08/18/24 multivitamin (Multiple Vitamins 1 tab PO DAILY 03/28/24 08/18/24 tablet) insulin glargine 100 unit/mL (3 35 unit SUBCUT BID 05/17/24 08/18/24 mL) subcutaneous pen (Lantus Solostar U-100 Insulin) lisinopril 20 mg tablet 20 mg PO DAILY 05/17/24 08/18/24 potassium chloride 10 mEq 10 meq PO BID 06/10/24 08/18/24 tablet,extended release albuterol sulfate 90 mcg/actuation 2 puff inhalation .Q4-6H 07/23/24 08/18/24 aerosol inhaler clopidogrel 75 mg tablet 75 mg PO DAILY 07/23/24 08/18/24 escitalopram oxalate 10 mg tablet 10 mg PO QPM 07/23/24 08/18/24 prednisone 20 mg tablet 40 mg PO DAILY 07/23/24 08/18/24 ursodiol 300 mg capsule 1,500 mg PO DAILY 07/23/24 08/18/24 Previous Rx's ?Medication ?Instructions ?Recorded carvedilol 12.5 mg tablet 12.5 mg PO BID #180 tabs 03/28/24 hydralazine 25 mg tablet 25 mg PO BID #180 tabs 03/28/24 rosuvastatin 40 mg tablet 40 mg PO DAILY #30 tabs 05/18/24 rivaroxaban 20 mg tablet (Xarelto) See Rx Instructions .Route 07/18/24 .COMPLEX #30 tabs levofloxacin 500 mg tablet 500 mg PO DAILY 7 days #7 tabs 08/21/24 tamsulosin 0.4 mg capsule (Flomax) 0.4 mg PO DAILY #30 caps 08/21/24 Allergies Allergy/AdvReac Type Severity Reaction Status Date / Time lovastatin Allergy RASH Verified 08/18/24 15:07 blood Allergy Unknown Trisha's Uncoded 08/18/24 15:07 witness PFSH ED PFSH: Medical History Hypertension Anticoagulation adequate with anticoagulant therapy Atrial fibrillation with controlled ventricular rate BPH (benign prostatic hyperplasia) Mass of right kidney Diabetes mellitus Acute cholecystitis Callus of foot Chronic ulcer of great toe of right foot, limited to breakdown of skin [place] Peripheral arterial disease Diabetic peripheral neuropathy associated with type 2 diabetes mellitus Diabetes mellitus GERD (gastroesophageal reflux disease) Venous insufficiency Prostatitis, acute Acute cystitis with hematuria Surgical History Hx of cholecystectomy Status post right inguinal hernia repair Status post colonoscopy (12/13/20) descending colon polyp H/O esophagogastroduodenoscopy (12/13/20) normal Hx of tonsillectomy Family History Mother , AT AGE 73 Cancer COLON Father , AT AGE 50 Diabetes Social History Smoking and tobacco/nicotine status: never used tobacco/nicotine Alcohol intake: current Alcohol intake frequency: holidays/special occasions only Marital status: Current occupational status: retired Physical Exam Const: GENERAL APPEARANCE: cooperative; not in distress HENMT: COMMON NORMALS: normocephalic, atraumatic and Normal external nose present HEAD & SCALP: normocephalic and atraumatic FACE & SINUS: normal facial exam NOSE: Normal external nose present Eye: COMMON NORMALS: Equal, round and reactive pupils present and EOMs intact bilaterally PUPIL: Yes Equal, round and reactive pupils present Chest: CHEST: Yes Symmetrical chest wall rise Resp: COMMON NORMALS: normal respiratory effort, No retractions and clear to auscultation bilaterally AUSCULTATION: clear to auscultation bilaterally Cardio: COMMON NORMALS: regular rate and regular rhythm RATE: regular rate RHYTHM: regular rhythm GI: COMMON NORMALS: Normal to inspection, nondistended, normoactive bowel sounds present Extremity: GENERAL: Yes edema (3+) Course Vital Signs: Vital signs: Vital Signs Temperature 99.7 F H 08/20/24 22:06 Pulse Rate 79 08/21/24 03:00 Respiratory Rate 18 08/21/24 03:00 Blood Pressure 176/86 08/21/24 03:00 Pulse Oximetry 97 08/21/24 03:00 Oxygen Delivery Me thod Room Air 08/20/24 22:30 MDM - Male Medical Decision Making White count 79-year-old gentleman with significant lower extremity swelling. He also has bruising to his scrotum, old blood at his urethral meatus. He has temperature as well. White blood cell count is 7. Creatinine is 1.2 now down from 4 previously on previous admission. CRP is 25. Lactic acid is 0.9. The patient has trace leukocyte Estrace greater than 100 RBCs, and 0-5 white blood cells. He is anticoagulated. Urethral injury is likely cause of hematuria. CT does not reveal stone, etc. It does reveal a small focus of air within the urinary bladder. Could be cystitis, although urinalysis does not necessarily support this. He will be covered with antibiotics, given Flomax. He does not have a significant post void residual volume on bladder scan, so catheterization not felt necessary at this point. He is given a dose of oral Lasix here to promote diuresis given his lower extremity swelling, although with history of renal failure, Lasix will not be continued at this point. He will return for any worsening symptoms. Lab Data 08/20/24 23:26 08/20/24 23:26 Radiology Impressions Abdomen/Pelvis CT 08/20/24 22:35 IMPRESSION: 1. Small focus of air within the urinary bladder lumen. No significant wall thickening or adjacent inflammation. This is presumed secondary to recent instrumentation, but could reflect developing cystitis. 2. Negative for hydronephrosis or urolithiasis. 3. Small volume bilateral pleural effusions, [id number]-left. Subtotal consolidation of the posteroinferior bilateral lower lobes, probable atelectasis, additional pneumonitis not excluded. Laboratory Results WBC 7.14 10^3/uL (3.29-11.43) 08/20/24 23: RBC 3.18 10^6/uL (3.85-5.65) L 08/20/24 23: Hgb 10.40 g/dL (11.27-16.99) L 08/20/24 23: Hct 34.3 % (37-53) L 08/20/24 23: MCV 107.9 fl (82-101) H 08/20/24 23: MCH 32.7 pg (27-33) 08/20/24 23: MCHC 30.3 g/dL (30-55) 08/20/24 23: RDW 18.5 % (12.1-15.1) H 08/20/24 23: Plt Count 348 10^3/cmm (157-399) 08/20/24 23: MPV 8.9 fL (7.4-10.4) 08/20/24 23: Neut % (Auto) 62.9 % 08/20/24 23: Lymph % (Auto) 19.2 % 08/20/24 23: [place] % (Auto) 12.7 % 08/20/24 23: Eos % (Auto) 3.8 % 08/20/24 23: Baso % (Auto) 0.7 % 08/20/24 23: Neut # (Auto) 4.49 10^3/uL (1.8-7.7) 08/20/24 23: Lymph # (Auto) 1.4 10^3/uL (0.8-4.8) 08/20/24: [place] # (Auto) 0.9 10^3/uL (0.2-0.9) 08/20/24 23: Eos # (Auto) 0.3 10^3/uL (0.0-0.8) 08/20/24: Baso # (Auto) 0.1 10^3/uL (0.0-0.1) 08/20/24 23:26 Nucleated RBC % (auto) 0 % 08/20/24 23: Nucleated RBCs # 0.0 /100WBC 08/20/24 23:26 Sodium 141 mmol/L (136-145) 08/20/24 23:26 Potassium 3.5 mmol/L (3.5-5.1) 08/20/24 23:26 Chloride 103 mmol/L (98-107) 08/20/24 23:26 Carbon Dioxide 27 mmol/L (22-29) 08/20/24 23:26 Anion Gap 14.5 (5-19) 08/20/24 23:26 BUN 17 mg/dL (8-23) 08/20/24 23: Creatinine 1.2 mg/dL (0.7-1.2) 08/20/24 23: GFR Calculation Not Reportable 08/20/24 23:26 Glucose 140 mg/dL (65-115) H 08/20/24 23:26 Calculated Osmolality 296 mOsm/kg (285-295) H 08/20/24 23:26 Lactic Acid 0.9 mmol/L (0.5-2.2) 08/20/24 23: Calcium 8.1 mg/dL (8.5-10.5) L 08/20/24 23: Phosphorus 3.0 mg/dL (2.5-4.5) 08/20/24 23: Magnesium 1.5 mg/dL (1.7-2.3) L 08/20/24 23:26 Total Bilirubin 0.7 mg/dL (0.15-1.2) 08/20/24 23:26 AST 11 U/L (0-40) 08/20/24 23:26 ALT 6 U/L (0-41) 08/20/24 23:26 Alkaline Phosphatase 189 U/L (40-130) H 08/20/24 23:26 C-Reactive Protein 24.8 mg/L (0.0-4.9) H 08/20/24 23:26 NT-Pro-B Natriuret Pep 2173 pg/mL (0-450) H 08/20/24 23:26 Total Protein 5.5 g/dL (6.6-8.7) L 08/20/24 23:26 Albumin 2.6 g/dL (3.5-5.2) L 08/20/24 23:26 Globulin 2.9 g/dL (1.3-4.6) 08/20/24 23:26 Urine Color Dark yellow (Yellow) A 08/21/24 00:38 Urine Appearance Clear (CLEAR) 08/21/24 00:38 Urine pH 5.5 (5-7) 08/21/24 00:38 Ur Specific Icard 1.018 (1.005-1.030) 08/21/24 00:38 Urine Protein 2+ (Negative) A 08/21/24 00:38 Urine Glucose (UA) Negative (Normal) 08/21/24 00:38 Urine Ketones Trace (Negative) 08/21/24 00:38 Urine Blood 2+ (Negative) A 08/21/24 00:38 Urine Nitrate Negative (Negative) 08/21/24 00:38 Urine Bilirubin 1+ (Negative) H 08/21/24 00:38 Urine Urobilinogen 4.0 mg/dL (Negative) H 08/21/24 00:38 Ur Leukocyte Esterase Trace (Negative) A 08/21/24 00:38 Urine RBC >100 /hpf (0-2) H 08/21/24 00:38 Urine WBC 0-5 /hpf (0-5) 08/21/24 00:38 Ur Squamous Epith Cells 0-5 /hpf (0-5) 08/21/24 00:38 Amorphous Sediment Not Reportable 08/21/24 00:38 Urine Bacteria None seen /hpf (NONE) 08/21/24 00:38 Hyaline Casts 3.30 /lpf 08/21/24 00:38 All radiology interpretation(s) finalized by discharge Discharge Plan Discharge Patient Disposition: Home Clinical Impression: Hematuria Qualifiers: Hematuria type: gross Qualified Code(s): R31.0 - Gross hematuria Condition: Stable Prescriptions: New tamsulosin [Flomax] 0.4 mg capsule 0.4 mg PO DAILY Qty: 30 0RF levofloxacin 500 mg tablet 500 mg PO DAILY 7 Days Qty: 7 0RF No Action pantoprazole 40 mg tablet,delayed release (DR/EC) 40 mg PO BID triamterene-hydrochlorothiazid 75-50 mg tablet 1 tab PO DAILY furosemide [Lasix] 20 mg tablet 20 mg PO DAILY PRN (Reason: Edema) multivitamin [Multiple Vitamins] Tablet 1 tab PO DAILY carvedilol 12.5 mg tablet 12.5 mg PO BID Qty: 180 3RF Rx Instructions: must administer with a meal/food hydralazine 25 mg tablet 25 mg PO BID Qty: 180 3RF Xarelto 20 mg tablet See Rx Instructions .ROUTE .COMPLEX Qty: 30 0RF Dose Instruction: TAKE 1 TABLET BY MOUTH DAILY; must administer with evening meal Rx Instructions: TAKE 1 TABLET BY MOUTH DAILY; must administer with evening meal glipizide 10 mg tablet extended release 24hr 10 mg PO DAILY fluticasone propionate 50 mcg/actuation [place],Suspension 2 spray INTRANASAL DAILY PRN (Reason: Nasal Congestion) Rx Instructions: administer into each nostril lisinopril 20 mg tablet 20 mg PO DAILY insulin glargine [Lantus Solostar U-100 Insulin] 100 unit/mL (3 mL) insulin pen 35 unit SUBCUT BID rosuvastatin 40 mg tablet 40 mg PO DAILY Qty: 30 0RF potassium chloride 10 mEq tablet extended release 10 meq PO BID prednisone 20 mg tablet 40 mg PO DAILY clopidogrel 75 mg tablet 75 mg PO DAILY ursodiol 300 mg capsule 1,500 mg PO DAILY Rx Instructions: TAKE 5 CAPSULES BY MOUTH ONCE DAILY IN 2-3 DIVIDED DOSES albuterol sulfate 90 mcg/actuation HFA aerosol inhaler 2 puff INHALATION .Q4-6H escitalopram oxalate 10 mg tablet 10 mg PO QPM Discharge Orders: Discharge ED (Routine); Ordered 08/21/24 Ordered By: Dong Dooley Referrals: Humberto Griggs DO [Primary Care Provider, Family Practice] - 4-7 days Patient Instructions: Hematuria (ED), Opioid Safety, Pain Management Activity Restrictions/Additional Instructions: Medications as directed. Return for worsening symptoms despite treatment. Particularly worsening swelling, shortness of breath, inability to urinate, etc. Call your doctor Thursday for follow-up appointment. Repeat urinalysis should be done in 4 to 5 days to ensure blood has cleared from urine. Print Language: Japanese Coding Level of Care Code ED Ops Analyst for Lois Greco
[2024-08-20 23:39] VITALS: BP 164/75; PULSE 81; RESP 16; O2SAT 94
--- NOTE | 2024-08-20 23:41 | PC.NURSE ---
this nurse assumed pt care from THONY Shannon at 2300.
[2024-08-20 23:53] LABS: Lactic Sepsis W/Reflex 0.9 mmol/L (0.5-2.2)
[2024-08-20 23:55] LABS: Basophils # 0.1 10^3/uL (0.0-0.1); Basophils % 0.7 %; Eosinophils # 0.3 10^3/uL (0.0-0.8); Eosinophils % 3.8 %; Hematocrit 34.3 % (37-53); Lymphocytes # 1.4 10^3/uL (0.8-4.8); Lymphocytes % 19.2 %; Mean Corpuscular HGB Conc 30.3 g/dL (30-55); Mean Corpuscular Hemoglobin 32.7 pg (27-33); Mean Corpuscular Volume 107.9 fl (82-101); Mean Platelet Volume 8.9 fL (7.4-10.4); Monocytes # 0.9 10^3/uL (0.2-0.9); Monocytes % 12.7 %; Neutrophils # 4.49 10^3/uL (1.8-7.7); Neutrophils % 62.9 %; Nucleated Red Blood Cells % 0 %; Platelet Count 348 10^3/cmm (157-399); Red Blood Count 3.18 10^6/uL (3.85-5.65); Red Cell Distribution Width 18.5 % (12.1-15.1); White Blood Count 7.14 10^3/uL (3.29-11.43)
[2024-08-21] VITALS: BP 173/82; PULSE 77; RESP 16; O2SAT 90
[2024-08-21 00:05] LABS: Alanine Aminotransferase 6 U/L (0-41); Albumin Level 2.6 g/dL (3.5-5.2); Alkaline Phosphatase 189 U/L (40-130); Anion Gap 14.5 (5-19); Aspartate Amino Transferase 11 U/L (0-40); Blood Urea Nitrogen 17 mg/dL (8-23); C Reactive Protein 24.8 mg/L (0.0-4.9); Calcium 8.1 mg/dL (8.5-10.5); Carbon Dioxide 27 mmol/L (22-29); Chloride 103 mmol/L (98-107); Creatinine Clr Calc Pharmacy 64.0351; Globulin 2.9 g/dL (1.3-4.6); Glucose 140 mg/dL (65-115); Magnesium 1.5 mg/dL (1.7-2.3); NT Pro B Type Natriuretic Pept 2173 pg/mL (0-450); Osmolality Calculated 296 mOsm/kg (285-295); Potassium 3.5 mmol/L (3.5-5.1); Sodium 141 mmol/L (136-145); Total Bilirubin 0.7 mg/dL (0.15-1.2); Total Protein 5.5 g/dL (6.6-8.7)
[2024-08-21 00:56] LABS: Bilirubin Urine 1+ (Negative); Blood Urine 2+ (Negative); Glucose Urine UA Negative (Normal); Ketones Urine Trace (Negative); Leukocyte Esterase Urine Trace (Negative); Nitrate Urine Negative (Negative); Protein Urine 2+ (Negative); Specific Gravity, Urine 1.018 (1.005-1.030); Urine Appearance Clear (CLEAR); Urine Color Dark Yellow (Yellow); pH Urine 5.5 (5-7)
[2024-08-21 01:07] VITALS: BP 169/96; PULSE 82; RESP 14; O2SAT 97
[2024-08-21 01:07] LABS: Add Urine Microscopic? YES; Bacteria Urine None Seen /hpf; RBC Urine >100 /hpf (0-2); Squamous Epithelial Cell Urine 0-5 /hpf (0-5); WBC Urine 0-5 /hpf (0-5)
[2024-08-21 01:14] LABS: Add Urine Culture? Yes
[2024-08-21] MEDS: levoFLOXacin 500 mg Tablet PO (02:15)
[2024-08-21] MEDS: tamsulosin 0.4 mg Capsule PO (02:15)
[2024-08-21] MEDS: FUROsemide 40 mg Tablet 80 MG PO (02:47)
[2024-08-21 03:00] VITALS: BP 176/86; PULSE 79; RESP 18; O2SAT 97
== END 2024-08-21 03:02 | disposition home or self-care (01) ==
PROVIDERS: Emergency Provider Emergency Medicine; PCP Electrodiagnostic Medicine
DX: R31.0 Gross hematuria (principal); Z79.4 Long term (current) use of insulin; Z79.02 Long term (current) use of antithrombotics/antiplatelets; E11.42 Type 2 diabetes mellitus with diabetic polyneuropathy; I10 Essential (primary) hypertension
CPT/HCPCS: 36415; 51798; 74176; 80053; 81001; 83605; 83735; 83880; 84100; 85025; 86140; 87077; 87086; 87186; 93005; 99284; J9999

== ENCOUNTER → 2024-09-12 11:00 | Outpatient (BNVA) | payer MEDICARE, OTHER, SELFPAY | PROVIDERS: PCP Electrodiagnostic Medicine; Visit Provider Orthopaedic Surgery | DX: S72.141A Displaced intertrochanteric fracture of right femur, initial encounter for closed fracture (principal); X58.XXXA Exposure to other specified factors, initial encounter | CPT/HCPCS: 73502; 99024 ==

== ENCOUNTER → 2024-09-15 12:50 | Outpatient (BNVA) | payer MEDICARE, OTHER, SELFPAY | PROVIDERS: PCP Electrodiagnostic Medicine; Referring Provider Internal Medicine; Visit Provider Specialist | DX: I63.239 Cerebral infarction due to unspecified occlusion or stenosis of unspecified carotid artery (principal); I63.9 Cerebral infarction, unspecified | CPT/HCPCS: 99205 ==

== ENCOUNTER → 2024-09-27 12:51 | Outpatient (BNVA) | payer MEDICARE, OTHER, SELFPAY | PROVIDERS: PCP Electrodiagnostic Medicine; Visit Provider Podiatrist Foot & Ankle Surgery | DX: E11.42 Type 2 diabetes mellitus with diabetic polyneuropathy (principal); L60.3 Nail dystrophy; L84 Corns and callosities; I73.9 Peripheral vascular disease, unspecified; Z79.4 Long term (current) use of insulin | CPT/HCPCS: 11056; 11721 ==

== ENCOUNTER 2024-09-30 23:37 | Emergency (ER) | payer MEDICARE, OTHER, SELFPAY ==
--- OUTSIDE RECORDS SUMMARY | 2024-09-30 23:46 | XMS_ITS | Clinical Summary ---
Author Organization [facility] Address [address] [place] [address] Care Team Providers Care Spot Washer Name Role Phone Unavailable Primary Care Provider Unavailabl e Allergies Active Allergy Reactions Criticality Noted Date Comments Lovastatin Muscle Pain,Other (S ee Comments) Low 01/13/2023 Mivbubw-Chl-Bpd Reductase Inhibitors Itching Low 12/30/2022 Medications pantoprazole (PROTONIX) 40 mg Tablet, Delayed Release (E.C.) Take 40 mg by mouth daily. Active rosuvastatin (CRESTOR) 40 mg tablet Take 40 mg by mouth daily. Active fluticasone propionate (FLONASE) 50 mcg/spray [place], Suspension nasal inhaler USE 2 SPRAY(S) IN EACH NOSTRIL TWICE DAILY 11/08/19 22 Active multivitamin (DAILY-KATIE) tablet Take 1 Tablet by mouth daily. Active insulin glargine (Lantus Solostar U-100 Insulin) 100 unit/mL pen syringe Inject 30 Units by subcutaneous injection 2 times daily. Active glipiZIDE (GLUCOTROL XL) 10 mg Extended Release 24 hour tablet Take 10 mg by mouth daily with breakfast. Active furosemide (LASIX) 20 mg tablet Take 20 mg by mouth daily. Active carvediloL (COREG) 12.5 mg tablet Take 1 Tablet by mouth 2 times daily with meals. Active hydrALAZINE (APRESOLINE) 25 mg tablet Take 1 Tablet by mouth 2 times daily. Active clopidogreL (PLAVIX) 75 mg Tablet Take 1 Tablet (75 mg) by mouth daily. 90 Tablet 06/18/19 25 Active HYDROcodone-acetamin ophen (NORCO) 5-325 mg tabletIndications:H/ O transcarotid artery revascularization (TCAR) Take 1 Tablet by mouth every 6 hours as needed for Pain, Moderate. Max Daily Amount: 4 Tablets 15 Tablet 06/17/19 Active rivaroxaban (Xarelto) 20 mg Tablet Take 1 Tablet (20 mg) by mouth daily with supper. 90 Tablet 06/17/19 Active albuterol sulfate HFA 90 mcg/actuation aerosol inhaler inhale 2 puffs by mouth every 4 to 6 hours as needed 06/22/19 Active lisinopriL (PRINIVIL) 20 mg tablet Take 1 Tablet by mouth daily. Active potassium CHLORIDE (KLOR-CON) 10 mEq Extended Release tablet Take 1 Tablet by mouth 2 times daily. 11/17/19 Active amiodarone (CORDARONE) 200 mg tablet Take 1 Tablet (200 mg) by mouth daily. 08/06/19 Active escitalopram oxalate (LEXAPRO) 10 mg tablet TAKE 1 TABLET BY MOUTH ONCE DAILY AT BEDTIME FOR SLEEP 07/21/19 Active Active Problems Problem Noted Date Diagnosed Date Diabetes mellitus 07/31/2024 Status post fall 07/31/2024 Intertrochanteric fracture 07/31/2024 Class 1 obesity due to exces s calories with serious comorbidity and body mass index (BMI) of 33.0 to 33.9 in adult 07/31/2024 Pre-operative clearance 06/13/2024 Acute ischemic stroke 06/12/2024 Stenosis of right carotid artery 06/12/2024 Acute left-sided weakness 06/11/2024 Type 2 diabetes mellitus with chronic kidney dis ease 06/11/2024 Hyperparathyroidism 06/11/2024 Stenosis of right internal carotid artery 2024 History of CVA (cerebrovascular accident) 2024 Gastroesophageal reflux disease 02/29/2024 Near syncope 11/13/2023 Acute kidney injury superimposed on CKD 11/13/19 24 Elevated LFTs 11/13/2023 Elevated troponin 11/13/2023 Prolonged Q-T interval on ECG 11/13/2023 Stage 3b chronic kidney disease 04/21/2023 Pseudophakia of both eyes 01/13/2023 Essential hypertension 12/24/2022 Hypercholesterolemia 06/06/2022 Epiretinal membrane (ERM) of right eye 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, with long-term current use of insulin 08/21/2021 Anatomical narrow angle, bilateral 08/16/2021 A-fib Resolved Problems Problem Noted Date Diagnosed Date Resolved Date Combined forms of age-relate d cataract of both eyes 08/21/2021 01/13/2023 Encounters Date Type Department Care Team Description 09/13/2024 External Device Data STL ABSTRACTION Provider, Abstract 09/07/2024 External Device Data STL ABSTRACTION Provider, Abstract 09/06/2024 1:30 PM CDT Office Visit [facility] [address] [phone] Mary Herrera DO Stenosis of right carotid artery (Primary Dx) 09/06/2024 12:00 PM CDT Ancillary Procedure [facility] [phone] Stenosis of right carotid artery 09/02/2024 Telephone [facility] [address] [phone] Mary Herrera DO Appointment Verification 08/18/2024 Telephone [facility] [address] [address] Mary Herrera DO Appointment Notification 08/10/2024 Orders Only [facility] [address] [place] [address] Provider, Abstract 08/10/2024 Abstract [facility] [address] [place] [address] Provider, Abstract 08/08/2024 Telephone [facility] [phone] Mary Herrera DO Appointment Notification 08/06/2024 - 08/06/2024 11:59 PM CDT Hospital Encounter [facility] [place] [address] [place] [address] Tyler Simons MD Ambulance, [facility] Discharge Disposition: Intermediate Care Facility 08/02/2024 External Device Data STL ABSTRACTION Provider, Abstract 07/31/2024 Travel 07/30/2024 5:26 PM CDT - 08/06/2024 1:56 PM CDT Hospital Encounter [facility] [address] [place] [address] Franco Lino MD Patel, Taksh, MD Suthar, Chandan Mal, MD Raavi, Tapasya, MD Acute kidney injury superimposed on CKD Discharge Disposition: Half-Way Fac(SNF) with Medicare Certification in Anticipation of Skilled Care 07/26/2024 External Device Data STL ABSTRACTION Provider, Abstract 07/23/2024 Telephone [facility] [place] [address] [place] [address] Freddie Dukes MD Medication Advice (Call was from outside provider at [facility]) 07/14/2024 10:17 AM CDT - 07/14/2024 11:59 PM CDT Hospital Encounter [facility] [address] [place] [phone] Caroline Gasca MD Discharge Disposition: Home or Self Care 07/12/2024 10:50 AM CDT Office Visit [facility] [address] [place] [phone] Davey Phan MD Type 2 diabetes mellitus with both eyes affected by mild nonproliferative retinopathy and macular edema, with long-term current use of insulin ([facility]) (Primary Dx); Epiretinal membrane (ERM) of right eye; Pseudophakia of both eyes 07/12/2024 External Device Data STL ABSTRACTION Provider, Abstract from Last 3 Months Immunizations Immunization Administration Dates Next Due (PNEUMOVAX 23)(50 YRS UP) PN EUMOCOCCAL POLYSACCHARIDE (PPV23) 0.5 ML, IM 04/02/2017 (PREVNAR 13)(6 WKS UP) PNEUM OCOCCAL CONJUGATE (PCV13) 0.5 ML, IM 02/21/2019 (PREVNAR 20)(6 WKS UP) PNEUM OCOCCAL CONJUGATE VACCINE 20-VALENT (PCV20), POLYSACCHARIDE [id number] CONJUGATE, ADJUVANT 0.5 ML (PF) IM 04/22/2023 (SHINGRIX)(50 YRS UP) ZOSTER VACCINE RECOMBINANT, 0.5 ML, IM 10/30/2021,04/19/2021 INFLUENZA VACCINE HIGH DOSE QUADRIVALENT 65 YR UP PF IM 01/06/2022 Family History Medical History Relation Name Comments Diabetes Father Relation Name Status Comments Father Social History Tobacco Use Types Packs/Day Years Used Date Smoking Tobacco: Never Passive Smoke Exposure: Never Smokeless Tobacco: Never Tobacco Cessation:Counseling Given: Not Answered Alcohol Use Standard Drinks/Week Comments Not Currently 0 (1 standard drink = 0.6 oz pur e alcohol) rarely Feeling Safe Answer Date Recorded Are you in a relationship wi th someone who hurts you emotionally and/or physically? No 07/30/2024 Food Insecurity Answer Date Recorded Patient needs follow up regardin 07/14/2024 Transportation Needs Answer Date Record ed Patient needs follow up regardin 07/14/2024 Housing Stability Answer Date Recorded Social/Environmental Concerns No concerns Utility Needs Answer Date Recorded Patient needs follow up regardin 07/14/2024 Sex and Gender Information Value Date Recorded Sex Assigned at Not on file Legal Sex Male 4:00 PM CDT Gender Identity Not on file Sexual Orientation Not on file Last Filed Vital Signs Vital Sign Reading Time Taken Comments Blood Pressure 146/82 09/06/2024 1:10 PM CDT Pulse 92 09/06/2024 1:10 PM CDT Temperature 36.6 C (97.8 F) 08/06/2024 7:44 AM CDT Respiratory Rate 16 08/06/2024 7:44 AM CDT Oxygen Saturation 97% 09/06/2024 1:10 PM CDT Inhaled Oxygen Concentration - - Weight 119.5 kg (263 lb 7.2 oz) 07/31/2024 7:49 PM CDT Height 188 cm (6' 2 ) 09/06/2024 1:10 PM CDT Body Mass Index 33.82 07/31/2024 7:49 PM CDT Plan of Treatment Upcoming Encounters Date Type Department Care Team (Late st Contact Info) Description 01/11/2025 11:00 AM CDT Office Visit [facility] [place] [address] [place] [address] Davey Phan MD [address] [place] [address] Health Maintenance Due Date Last Done Comments DIABETES ANNUAL FOOT EXAM 1963 DIABETES MICROALBUMIN ANNUAL SCREEN 1964 DTAP/TDAP/TD VACCINES (1 - Tdap) 1965 RSV VACCINE (60+ or ) (1 - 1-dose 75+ series) 2021 COVID-19 Vaccine (2023-2 5 season) 2023 01/16/2023, 12/10/2021, 01/17/2021, Additional history exists INFLUENZA VACCINE (#1) 2024 , 01/05/2023, 01/06/2022 DIABETES HBA1C Q 6 MONTHS 01/03/20252024, 06/12/2024, 06/11/2024, Additional history exists LDL CHOLESTEROL ANNUAL 06/12/2025 06/12/2024, 2024 DIABETES ANNUAL RETINAL EXAM 07/12/2025, 07/12/2024, 07/12/2024, Additional history exists ZOSTER VACCINE Completed 10/30/2021, 04/19/2021 PNEUMOCOCCAL VACCINE 50+ YEARS Completed 0 04/22/2023, 02/21/2019, 04/02/2017 Medical Devices Implanted Type Area Emissions Inspector Device Identifier Shelf Expiration Date Model / Serial / Lot Clip Ligating Horizon Med Ti [id number] [place] [facility] [place] [id number] Implanted:Qty: 1 on 06/15/2024 by Mary Herrera DO at [facility] Clip Right: Groin TELEFLEX- WECK CLOSURE SYS [id number] 02/27/2029 [id number] / / [id number] Clip Ligating Horizon Red [id number] [place] [facility] [place] [id number] Implanted:Qty: 1 on 06/15/2024 by Mary Herrera DO at [facility] Clip Right: Groin TELE[employer]LEX INC [id number] 02/16/2029 [id number] / / [id number] Agent Hemostat Surgicel 2x3in - [id number] Implanted:Qty: 1 on 06/15/2024 by Mary Herrera DO at [facility] Hemostatic Right: Groin J[employer]J- [employer] [id number] 09/19/20281952S / / [id number] Lens Iol Tecnis Eyhance 22.5 [id number] - [id number] Implanted:Qty: 1 on 12/16/2022 by Edison Cabrales MD at [facility] Left: Eye GEE MED OPTICS-J&J VISION 10/03/2025 [id number] / [id number] / NA Lens Iol Tecnis Eyhance 22.5 [id number] - [id number] Implanted:Qty: 1 on 12/30/2022 by Eidson Cabrales MD at [facility] Right: Eye GEE [employer]-J[employer] VISION 09/04/2025 [id number] 25 / [id number] / Stent Vasc Enroute 10-8x40mm [id number] - [id number] Implanted:Qty: 1 on 06/15/2024 by Mary Herrera DO at [facility] Stent Right: Carotid SILKROAD [id number] 10/20/2026 [id number]-TCS / / [id number] Procedures Procedure Name Priority Date/Time Associated Diagnosis Comments US CAROTID DOPPLER Routine 09/06/2024 12 :25 PM CDT Stenosis of right carotid artery TELEMETRY REPORT 08/09/2024 2:46 AM CDT POC GLUCOSE Routine 08/06/2024 7:20 AM CDT POC GLUCOSE Routine 08/06/2024 1:40 AM CDT POC GLUCOSE Routine 08/05/2024 10:21 PM CDT POC GLUCOSE Routine 08/05/2024 5:32 PM CDT POC GLUCOSE Routine 08/05/2024 11:43 AM CDT RENAL FUNCTION PANEL Routine 08/05/2024 8:50 AM CDT 2019 NOVEL CORONAVIRUS (COVID-19) PCR DETECTION Routine 08/05/2024 8:40 AM CDT POC GLUCOSE Routine 08/05/2024 7:18 AM CDT POC GLUCOSE Routine 08/04/2024 8:33 PM CDT POC GLUCOSE Routine 08/04/2024 5:29 PM CDT POC GLUCOSE Routine 08/04/2024 11:26 AM CDT HEMOGLOBIN AND HEMATOCRIT Routine 08/04/2024 8:03 AM CDT POC GLUCOSE Routine 08/04/2024 7:19 AM CDT RENAL FUNCTION PANEL Routine 08/04/2024 5:41 AM CDT POC GLUCOSE Routine 08/03/2024 8:56 PM CDT POC GLUCOSE Routine 08/03/2024 4:48 PM CDT POC GLUCOSE Routine 08/03/2024 11:23 AM CDT POC GLUCOSE Routine 08/03/2024 7:09 AM CDT RENAL FUNCTION PANEL Routine 08/03/2024 5:45 AM CDT POC GLUCOSE Routine 08/02/2024 8:49 PM CDT POC GLUCOSE Routine 08/02/2024 5:13 PM CDT POC GLUCOSE Routine 08/02/2024 12:06 PM CDT DIFFERENTIAL, MANUAL Routine 08/02/2024 10:24 AM CDT CBC WITH DIFFERENTIAL Routine 08/02/2024 10:24 AM CDT RENAL FUNCTION PANEL Routine 08/02/2024 10:24 AM CDT POC GLUCOSE Routine 08/02/2024 7:16 AM CDT POC GLUCOSE Routine 08/01/2024 8:40 PM CDT POC GLUCOSE Routine 08/01/2024 5:30 PM CDT POC GLUCOSE Routine 08/01/2024 11:24 AM CDT PROTIME-INR Routine 08/01/2024 8:08 AM CDT POC GLUCOSE Routine 08/01/2024 7:37 AM CDT DIFFERENTIAL, MANUAL Routine 08/01/2024 3:54 AM CDT VITAMIN B12 AND FOLATE Routine 08/01/2024 3:54 AM CDT RENAL FUNCTION PANEL Routine 08/01/2024 3:54 AM CDT CBC WITH DIFFERENTIAL Routine 08/01/2024 3:54 AM CDT POC GLUCOSE Routine 07/31/2024 9:25 PM CDT POC GLUCOSE Routine 07/31/2024 5:12 PM CDT IRON, TIBC, AND PERCENT SATURATION Routine 07/31/2024 2:27 PM CDT FERRITIN Routine 07/31/2024 2:27 PM CDT DIFFERENTIAL, MANUAL Routine 07/31/2024 2:27 PM CDT COMPREHENSIVE METABOLIC PANEL Stat 07/31/2024 2:27 PM CDT CBC WITH DIFFERENTIAL Routine 07/31/2024 2:27 PM CDT EXTRA TUBE (URINE VALLADARES) Routine 07/31/2024 1:08 PM CDT URINALYSIS W/REFLEX MICROSCOPIC Routine 07/31/2024 1:08 PM CDT POC GLUCOSE Routine 07/31/2024 12:13 PM CDT POC GLUCOSE Routine 07/31/2024 7:19 AM CDT POC GLUCOSE Routine 07/30/2024 9:34 PM CDT ECHO COMPLETE Routine 07/28/2024 8:44 AM CDT BASIC METABOLIC PANEL Routine 07/28/2024 8:43 AM CDT BASIC METABOLIC PANEL Routine 07/27/2024 8:40 AM CDT BASIC METABOLIC PANEL Routine 07/27/2024 8:39 AM CDT BASIC METABOLIC PANEL Routine 07/23/2024 8:39 AM CDT PROTIME-INR Routine 07/23/2024 US CAROTID DOPPLER Routine 07/14/2024 11 :40 AM CDT H/O transcarotid artery revascularization (TCAR) Carotid stenosis, symptomatic w/o infarct, right INTRAVITREAL INJECTION, PHARMACOLOGIC AGENT - OU - BOTH EYES Routine 07/12/2024 11:34 AM CDT Type 2 diabetes mellitus with both eyes affected by mild nonproliferative retinopathy and macular edema, with long-term current use of insulin ([facility]) OCT, RETINA - OU - BOTH EYES Routine 07/12/2024 11:05 AM CDT Type 2 diabetes mellitus with both eyes affected by mild nonproliferative retinopathy and macular edema, with long-term current use of insulin ([facility]) Epiretinal membrane (ERM) of right eye Pseudophakia of both eyes LIPID PANEL Routine 06/12/2024 7:23 AM CDT HEMOGLOBIN A1C Routine 06/12/2024 7:23 AM CDT from Last 3 Months or Most Recently Relevant to Health Maintenance Results * US CAROTID DOPPLER (09/06/2024 12:25 PM CDT) Only the most recent of2 resultswithin the time period is included. Anatomical Region Laterality Modality Neck Ultrasound 09/06/2024 11:5 6 AM CDT Narrative 09/09/2024 7:20 PM CDT [facility] Noninvasive Vascular Laboratory [address] [place] [address] Noninvasive Vascular Lab Cerebrovascular Exam Carotid Duplex Patient: Andrés Dumont Study ID: US CAROTID DOPPL Gender: M : 1945 Age: 79 Room: Height: 188cm Weight: 119.5kg BSA: 2.53m^2 Pt status: Outpatient Study Date: 09/06/2024 Study Time: 11:56:55 AM BSA: 2.53m^2 Ordering: Mary Herrera Interpreting:Mary Herrera Mice Raiser: Nikko Gandhi RVT, [facility] Summary Impression: 1. Patent stent extending through the right carotid bifurcation through the mid ICA with no evidence of hemodynamically significant stenosis. 2. Moderate diffuse atherosclerosis in the left carotid bifurcation and internal carotid artery with less than 50% narrowing. 3. Patent vertebral arteries with antegrade flow bilaterally. 4. Diastolic velocities are abnormally diminished systemically. Of note, patient is scanned upright in a wheelchair. 5. Findings appear stable from the prior exam. Study data: Carotid duplex study. Complete study and Doppler flow study including spectral analysis, color and valladares scale imaging. Height: 188cm. Height: 74in. Weight: 119.5kg. Weight: 263.5lb. BMI: 33.8kg/m^2. BSA: 2.53m^2. Location: Vascular laboratory. Patient status: Outpatient. Study status: Routine. Procedure: A vascular evaluation was performed. Image quality was good. Arterial flow: - Right CCA proximal: Right CCA proximal 0.81m/sec 0.03m/sec - Right CCA distal: Right CCA distal 0.45m/sec 0.05m/sec Prox stent - Right ICA proximal: Right ICA proximal 0.78m/sec 0.15m/sec 0.97 2.97 Mid stent - Right ICA mid: Right ICA mid 0.72m/sec 0.08m/sec 0.89 1.59 Distal stent - Right ICA distal: Right ICA distal 0.62m/sec 0.11m/sec 0.77 2.13 Stent outflow - Right ECA: Right ECA 0.51m/sec - Right vertebral: Right vertebral 0.29m/sec 0.03m/sec - Left CCA proximal: Left CCA proximal 0.67m/sec 0.05m/sec - Left CCA distal: Left CCA distal 0.52m/sec 0.09m/sec - Left ICA proximal: Left ICA proximal 0.47m/sec 0.11m/sec 0.7 1.22 - Left ICA mid: Left ICA mid 0.7m/sec 0.16m/sec 1.05 1.78 - Left ICA distal: Left ICA distal 0.71m/sec 0.18m/sec 1.06 2.01 - Left ECA: Left ECA 0.64m/sec - Left vertebral: Left vertebral 0.33m/sec 0.06m/sec [facility] is accredited with the Intersocietal Commission for the Accreditation of Vascular Laboratories (ICAVL) Prepared and Electronically Authenticated Mary Herrera Confirmed 09/09/2024 19:20 Procedure Note Mary Herrera DO - 09/09/2024 [facility] Noninvasive Vascular Laboratory [facility] [place] [address] Noninvasive Vascular Lab Cerebrovascular Exam Carotid Duplex Patient: Andrés Dumont Study ID: US CAROTID DOPPL Gender: M : 1945 Age: 79 Room: Height: 188cm Weight: 119.5kg BSA: 2.53m^2 Pt status: Outpatient Study Date: 09/06/2024 Study Time: 11:56:55 AM BSA: 2.53m^2 Ordering: Mary Herrera Interpreting:Mary Herrera Mice Raiser: Nikko Gandhi RVT [facility] Summary Impression: 1. Patent stent extending through the right carotid bifurcation throughthe mid ICA with no evidence of hemodynamically significant stenosis. 2. Moderate diffuse atherosclerosis in the left carotid bifurcation and internal carotid artery with less than 50% narrowing. 3. Patent vertebral arteries with antegrade flow bilaterally. 4. Diastolic velocities are abnormally diminished systemically. Of note, patient is scanned upright in a wheelchair. 5. Findings appear stable from the prior exam. Study data: Carotid duplex study. Complete study and Doppler flowstudy including spectral analysis, color and valladares scale imaging. Height:188cm. Height: 74in. Weight: 119.5kg. Weight: 263.5lb. BMI: 33.8kg/m^2. BSA: 2.53m^2. Location: Vascular laboratory. Patient status:Outpatient. Study status: Routine. Procedure: A vascular evaluation wasperformed. Image quality was good. Arterial flow: - Right CCA proximal: Right CCA proximal 0.81m/sec 0.03m/sec - Right CCA distal: Right CCA distal 0.45m/sec 0.05m/sec Prox stent - Right ICA proximal: Right ICA proximal 0.78m/sec 0.15m/sec 0.97 2.97Mid stent - Right ICA mid: Right ICA mid 0.72m/sec 0.08m/sec 0.89 1.59 Distalstent - Right ICA distal: Right ICA distal 0.62m/sec 0.11m/sec 0.77 2.13 Stent outflow - Right ECA: Right ECA 0.51m/sec - Right vertebral: Right vertebral 0.29m/sec 0.03m/sec - Left CCA proximal: Left CCA proximal 0.67m/sec 0.05m/sec - Left CCA distal: Left CCA distal 0.52m/sec 0.09m/sec - Left ICA proximal: Left ICA proximal 0.47m/sec 0.11m/sec 0.7 1.22 - Left ICA mid: Left ICA mid 0.7m/sec 0.16m/sec 1.05 1.78 - Left ICA distal: Left ICA distal 0.71m/sec 0.18m/sec 1.06 2.01 - Left ECA: Left ECA 0.64m/sec - Left vertebral: Left vertebral 0.33m/sec 0.06m/sec [facility] Lab is accredited with theIntersocietal Commission for the Accreditation of Vascular Laboratories (ICAVL) Prepared and Electronically Authenticated Mary Herrera Confirmed 09/09/2024 19:20 Mary Herrera DO US ORDERABLES Final Re sult * TELEMETRY REPORT (08/09/2024 2:46 AM CDT) Provider Scanning ECG ORDERABLES Final Result * POC GLUCOSE (08/06/2024 7:20 AM CDT) Only the most recent of27 resultswithin the time period is included. GLUCOSE POC 94 74 - 99 mg/dL 08/06/2024 7:20 AM CDT [facility] Note [facility] SPECIMEN SOURCE, GLUCOSE POC Capillary 08/06/2024 7:20 AM CDT [facility] Note [facility] Blood, whole 08/06/2024 7:20 AM CDT 08/06/2024 7:29 AM CDT Tyler Simons MD POINT OF CARE TESTING Sunshine atkinson Result [facility] CLIA # [id number] [address] [place] [id number] * (ABNORMAL) RENAL FUNCTION PANEL (08/05/2024 8:50 AM CDT) Only the most recent of5 resultswithin the time period is included. Pathologist [facility] SODIUM 139 136 - 145 mmol/L 08/05/2024 9:35 AM CDT [facility] Note [facility] POTASSIUM 3.5 3.5 - 5.1 mmol/L 08/05/2024 9:35 AM CDT [facility] CHLORIDE 104 98 - 107 mmol/L 08/05/2024 9:35 AM [facility] CO2 24 22 - 29 mmol/L 08/05/2024 9:35 AM [facility] CALCIUM 7.9(L) 8.8 - 10.2 mg/dL 08/05/2024 9:35 AM [facility] BUN 31(H) 8 - 23 mg/dL 08/05/2024 9:35 AM [facility] CREATININE 1.49(H) 0.67 - 1.17 mg/dL 08/05/2024 9:35 AM [facility] Comment:The GFR result is no t clinically significant on patients <18 or >70 years of age. GLUCOSE 135(H) 74 - 99 mg/dL 08/05/2024 9:35 AM [facility] ALBUMIN 2.5(L) 3.5 - 5.2 g/dL 08/05/2024 9:35 AM [facility] PHOSPHORUS 1.9(L) 2.5 - 4.5 mg/dL 08/05/2024 9:35 AM [facility] GFR 48 mL/min/1. 73 sq meter 08/05/2024 9:35 AM [facility] Comment:eGFR calculated with 2020 CKD-EPI equation. Vegetarian diet, extremely high or low muscle mass, and may affect results. Cystatin C with Glomerular Filtration Rate is a suitable alternative for these patients. ANION GAP 11 9 - 20 mmol/L 08/05/2024 9:35 AM [facility] Blood Venipuncture / Unknown 08/05/2024 8:50 AM CDT 08/05/2024 9:00 AM CDT Rama [facility]ESP CHEMISTRY ORDERABLES Final Result [facility] CLIA # [id number] [address] [place] [id number] * 2019 NOVEL CORONAVIRUS (COVID-19) PCR DETECTION (08/05/2024 8:40 AM CDT) Pathologist [facility] COVID-19 PCR NOT DETECTED Not Detected 08/06/19 10:33 AM CDT [facility] Upper Respiratory ENTIRE NASOPHARYNX / Unknown Collection / Unknown 08/05/2024 8:40 AM CDT 08/05/2024 9:37 AM CDT Narrative [facility] - 08/05/2024 10:33 AM CDT This test has been authorized by the FDA under an Emergency Use Authorization for use by authorized laboratories. This test has been validated in accordance with the FDA's guidance regarding Coronavirus Disease-2019 testing. Optimum specimen types and timing for peak viral levels during infection have not been determined. A negative RT-PCR result does not rule out infection with the 2019-Novel Coronavirus. Tyler Simons MD MICROBIOLOGY - GENERAL ORD ERABLES Final Result [facility] CLIA # [id number] [address] [address] * (ABNORMAL) HEMOGLOBIN AND HEMATOCRIT (08/04/2024 8:03 AM CDT) [facility] HEMOGLOBIN 7.1(L) 14.0 - 18.0 g/dL 08/04/2024 8:25 AM CDT [facility] HEMATOCRIT 22.7(L) 41.0 - 53.0 % 08/04/2024 8:25 AM CDT [facility] Blood Venipuncture / Unknown 08/04/2024 8:03 AM CDT 08/04/2024 8:19 AM CDT Tyler Simons MD HEMATOLOGY ORDERABLES Sunshine l Result [facility] CLIA # [id number] [address] [place] [address] [place] [address] * (ABNORMAL) MANUAL DIFFERENTIAL (08/02/2024 10:24 AM T) Only the most recent of3 resultswithin the time period is included. SEGMENTED NEUTROPHILS 82(H) 36 - 66 % 08/02/2024 11:02 AM [facility] LYMPHOCYTES RELATIVE 5(L) 24 - 44 % 08/02/2024 11:02 AM [facility] MONOCYTES RELATIVE 5 4 - 10 % 08/02/2024 11:02 AM [facility] [facility] EOSINOPHILS RELATIVE 4(H) 0 - 3 % 08/02/2024 11:02 AM [facility] MYELOCYTES - REL (DIFF) 3(H) 0 - 1 % 08/02/2024 11:02 AM [facility] PROMYELOCYTES RELATIVE 1(H) <=0 % 08/02/2024 11:02 AM [facility] PLATELET EST. Increased 08/02/2024 11:02 AM [facility] NEUTROPHILS ABSOLUTE COUNT 11.40(H) 2.00 - 8.00 K/uL 08/02/2024 11:02 AM [facility] LYMPHOCYTES ABSOLUTE 0.70(L) 1.20 - 4.00 K/uL 08/02/2024 11:02 AM [facility] ATYPICAL LYMPHS ABSOLUTE 08/02/2024 11:02 AM [facility] MONOCYTES ABSOLUTE 0.70(H) 0.10 - 0.60 K/uL 08/02/2024 11:02 AM [facility] EOSINOPHILS ABSOLUTE 0.56 0.00 - 0.70 K/uL 08/02/2024 11:02 AM [facility] ANISOCYTOSIS 2+ /hpf 08/02/2024 11:02 AM [facility] POLYCHROMASIA 1+ /hpf 08/02/2024 11:02 AM [facility] BASOPHILIC STIPPLING 1+ /hpf 08/02/2024 11:02 AM T [facility] TOTAL CELLS COUNTED IN DIFF 100 08/02/2024 11:02 AM T [facility] Blood Venipuncture / Unknown 08/02/2024 10:24 AM CDT 08/02/2024 10:28 AM CDT Rama Mejía FIELD ACCOUNT MANAGER HEMATOLOGY ORDERABLES COM F inal Result [facility] CLIA # [id number] [address] [address] [place], [place] [id number] * (ABNORMAL) CBC WITH DIFFERENTIAL (08/02/2024 10:24 AM CDT) Only the most recent of3 resultswithin the time period is included. WBC 13.9(H) 4.8 - 10.8 K/uL 08/02/2024 10:40 AM [facility] NRBCS 1(H) <1 % 08/02/2024 10:40 AM [facility] RBC 2.16(L) 4.60 - 6.20 M/uL 08/02/2024 10:40 AM [facility] HEMOGLOBIN 6.9(LL) 14.0 - 18.0 g/dL 08/02/2024 10:40 AM [facility] HEMATOCRIT 21.7(L) 41.0 - 53.0 % 08/02/2024 10:40 AM [facility] MCV 100.5 84.0 - 103.0 fL 08/02/2024 10:40 AM [facility] MCH 31.9 27.0 - 34.0 pg 08/02/2024 10:40 AM [facility] MCHC 31.8 30.0 - 35.0 g/dL 08/02/2024 10:40 AM [facility] PLATELETS 499(H) 140 - 440 K/uL 08/02/2024 10:40 AM CDT [facility] MPV 8.6(L) 8.9 - 12.8 fL 08/02/2024 10:40 AM CDT [facility] RDW 17.8(H) 11.0 - 14.5 % 08/02/2024 10:40 AM CDT [facility] RDW-STDEV 58.3(H) 37.0 - 54.0 fL 08/02/2024 10:40 AM CDT [facility] SMEAR REVIEWED: - See Manual Diff. 08/02/2024 10:40 AM CDT [facility] Blood Venipuncture / Unknown 08/02/2024 10:24 AM CDT 08/02/2024 10:28 AM CDT Rama Mejía FIELD ACCOUNT MANAGER HEMATOLOGY ORDERABLES Final Result [facility] CLIA # [id number] [address] [place] [address] * (ABNORMAL) PROTIME-INR (08/01/2024 8:08 AM CDT) Only the most recent of2 resultswithin the time period is included. PROTIME 17.5(H) 12.7 - 14.9 Seconds 08/01/2024 8:54 AM CDT [facility] INR 1.4(H) 0.8 - 1.2 08/01/2024 8:54 AM CDT [facility] Blood Venipuncture / Unknown 08/01/2024 8:08 AM CDT 08/01/2024 8:38 AM CDT Narrative [facility] - 08/01/2024 8:54 AM CDT Expected Values for INR: DVT/PE Goal INR 2.5; range 2.0 - 3.0 Valve Replacement Tissue Goal INR 2.5; range 2.0 - 3.0 Valve Replacement Mechanical Goal INR 3.0; range 2.5 - 3.5 POST-ME Goal INR 2.5; range 2.0 - 3.0 or Goal INR 3.0; range 2.5 - 3.5 Atrial Fibrillation Goal INR 2.5; range 2.0 - 3.0 Ischemic Stroke Goal INR 2.5; range 2.0 - 3.0 Tyler Simons MD HEMATOLOGY ORDERABLES Sunshine l Result Performing Organization Address [facility] de Phone Number [facility] CLIA # [id number] [address] [place] [address] * (ABNORMAL) VITAMIN B12 AND FOLATE (08/01/2024 3:54 AM CDT) [facility] VITAMIN B12 1,025(H) 211 - 946 pg/mL 08/01/2024 4:57 AM CDT [facility] FOLATE, SERUM 8.8 3.1 - 17.5 ng/mL 08/01/2024 4:57 AM CDT [facility] Blood Venipuncture / Unknown 08/01/2024 3:54 AM CDT 08/01/2024 4:06 AM CDT Sangeetha Pollard MD CHEMISTRY ORDERABLES Final Result Performing Organization Address [facility] de Phone Number [facility] CLIA # [id number] [address] [place] [address] * (ABNORMAL) IRON, TIBC, AND PERCENT SATURATION (07/31/2024 2:27 PM CDT) [facility] IRON 135 59 - 158 ug/dL 07/31/2024 4:20 PM CDT [facility] TIBC 223(L) 250 - 450 ug/dL 07/31/2024 4:20 PM CDT [facility] IRON % SATURATION 61(H) 15 - 60 % 07/31/2024 4:20 PM CDT [facility] Blood Venipuncture / Unknown 07/31/2024 2:27 PM CDT 07/31/2024 3:18 PM CDT Sangeetha Pollard MD CHEMISTRY ORDERABLES Final Result Performing Organization Address [facility] Co de Phone Number [facility] CLIA # [id number] [address] [address] * (ABNORMAL) FERRITIN (07/31/2024 2:27 PM CDT) Pathologist [facility] FERRITIN 1,045.0(H) 30.0 - 400.0 ng/mL 07/31/2024 4:19 PM CDT [facility] Blood Venipuncture / Unknown 07/31/2024 2:27 PM CDT 07/31/2024 3:18 PM CDT Sangeetha Pollard MD CHEMISTRY ORDERABLES Final Result Performing Organization Address [facility] de Phone Number [facility] CLIA # [id number] [address] [address] * (ABNORMAL) COMPREHENSIVE METABOLIC PANEL (07/31/2024 2:27 PM CDT) SODIUM 130(L) 136 - 145 mmol/L 07/31/2024 3:50 PM CDT [facility] POTASSIUM 4.6 3.5 - 5.1 mmol/L 07/31/2024 3:50 PM CDT [facility] CHLORIDE 96(L) 98 - 107 mmol/L 07/31/2024 3:50 PM CDT [facility] CO2 18(L) 22 - 29 mmol/L 07/31/2024 3:50 PM [facility] CALCIUM 8.3(L) 8.8 - 10.2 mg/dL 07/31/2024 3:50 PM [facility] BUN 89(H) 8 - 23 mg/dL 07/31/2024 3:50 PM [facility] CREATININE 3.81(H) 0.67 - 1.17 mg/dL 07/31/2024 3:50 PM [facility] Comment:The GFR result is no t clinically significant on patients <18 or >70 years of age. GLUCOSE 157(H) 74 - 99 mg/dL 07/31/2024 3:50 PM [facility] TOTAL PROTEIN 5.5(L) 6.4 - 8.3 g/dL 07/31/2024 3:50 PM [facility] ALBUMIN 2.5(L) 3.5 - 5.2 g/dL 07/31/2024 3:50 PM [facility] BILIRUBIN TOTAL 0.5 0.0 - 1.0 mg/dL 07/31/2024 3:50 PM [facility] ALKALINE PHOSPHATASE 106 40 - 129 U/L 07/31/2024 3:50 PM [facility] AST 24 10 - 50 U/L 07/31/2024 3:50 PM [facility] ALT <5 <=50 U/L 07/31/2024 3:50 PM [facility] GFR 15 mL/min/1. 73 sq meter 07/31/2024 3:50 PM [facility] Comment:eGFR calculated with 2020 CKD-EPI equation. Vegetarian diet, extremely high or low muscle mass, and may affect results. Cystatin C with Glomerular Filtration Rate is a suitable alternative for these patients. ANION GAP 16 9 - 20 mmol/L 07/31/2024 3:50 PM [facility] Blood Venipuncture / Unknown 07/31/2024 2:27 PM CDT 07/31/2024 3:18 PM CDT Sangeetha Pollard MD CHEMISTRY ORDERABLES Final Result Performing Organization Address [facility]/ZIP Co de Phone Number [facility] CLIA # [id number] [address] [address] * EXTRA TUBE (URINE VALLADARES) (07/31/2024 1:08 PM CDT) Urine (Urine, indwelling (Huber) catheter) Collection / Unknown 07/31/2024 1:08 PM CDT 07/31/2024 1:12 PM CDT Sangeetha Pollard MD URINE ORDERABLES Sunshine l Result Performing Organization Address [facility] Co de Phone Number [facility] CLIA # [id number] [address] [address] * (ABNORMAL) URINALYSIS WITH REFLEX MICROSCOPIC (07/31/2024 1:08 PM CDT) COLOR UA Yellow Pale to Dark Yellow 07/31/2024 1:23 PM CDT [facility] CLARITY UA Cloudy(A) Clear 07/31/2024 1:23 PM CDT [facility] SPECIFIC GRAVITY UA 1.019 1.003 - 1.035 07/31/2024 1:23 PM CDT [facility] PH UA 5.0 5.0 - 8.0 07/31/2024 1:23 PM CDT [facility] LEUKOCYTE ESTERASE UA 3+(A) Negative 07/31/2024 1:23 PM CDT [facility] NITRITE UA Negative Negative 07/31/2024 1:23 PM CDT [facility] PROTEIN UA Trace(A) Negative 07/31/2024 1:23 PM CDT [facility] GLUCOSE UA Negative Negative 07/31/2024 1:23 PM CDT [facility] KETONES UA Negative Negative 07/31/2024 1:23 PM CDT [facility] UROBILINOGEN UA <2.0 <2.0 mg/dL 1:23 PM CDT [facility] BILIRUBIN UA Negative Negative 07/31/2024 1:23 PM CDT [facility] BLOOD UA 2+(A) Negative 07/31/2024 1:23 PM CDT [facility] WBC UA 51-100(A) 0 - 2 /hpf 07/31/2024 1:23 PM CDT [facility] RBC UA 11-25(A) 0 - 2 /hpf 07/31/2024 1:23 PM CDT [facility] BACTERIA UA 2+(A) Negative /hpf 07/31/2024 1:23 PM CDT [facility] EPITHELIAL CELLS, URINE 0-5 0 - 5 /hpf 07/31/2024 1:23 PM CDT [facility] TRANSITIONAL EPI 0-2 0 - 2 /hpf 08/01/19 1:23 PM CDT [facility] HYALINE CAST 0-2 None Seen, 0-2 /lpf 07/31/2024 1:23 PM T [facility] Urine (Urine, indwelling (Huber) catheter) Collection / Unknown 07/31/2024 1:08 PM CDT 07/31/2024 1:12 PM CDT us Sangeetha Pollard MD URINE ORDERABLES Sunshine l Result [facility] CLIA # [id number] [address] [place] [address] [place] [address] * ECHO COMPLETE (07/28/2024 8:44 AM CDT) us Abstract Provider ECHO ORDERABLES Final Result * BASIC METABOLIC PANEL (07/28/2024 8:43 AM CDT) Only the most recent of4 resultswithin the time period is included. Blood us Abstract Provider CHEMISTRY ORDERABLES Final Res ult * INTRAVITREAL INJECTION, PHARMACOLOGIC AGENT - OU - BOTH EYES (07/12/2024 11:34 AM CDT) Narrative [facility] - 07/12/2024 11:34 AM CDT Time Out 07/12/2024. 11:10 AM. Confirmed correct patient, procedure, site, and patient consented. Anesthesia Topical anesthesia was used. Anesthetic medications included Lidocaine 4%, Proparacaine 0.5%, Tetracaine 0.5%. Procedure Right Eye Preparation included 0.25% betadine irrigation, 10% betadine to eyelids, eyelid speculum. A 30 gauge needle was used. Injection: 1.25 mg bevacizumab 2.25 mg/0.09 mL Route: Intravitreal, Site: Eye, Right ND: 229[address]-944-26, Lot: lot on consent, Waste: 0 mL This medication is being administered as part of a group. All remaining medication discarded. Left Eye Preparation included 0.25% betadine irrigation, 10% betadine to eyelids, eyelid speculum. A 30 gauge needle was used. Injection: 1.25 mg bevacizumab 2.25 mg/0.09 mL Route: Intravitreal, Site: Eye, Left NDC: 06547-941-83, Lot: lot on consent, Waste: 0 mL This medication is being administered as part of a group. All remaining medication discarded. Post-op Right Eye Post injection exam found visual acuity of at least counting fingers. The patient tolerated the procedure well. There were no complications. The patient received written and verbal post procedure care education. Left Eye Post injection exam found visual acuity of at least counting fingers. The patient tolerated the procedure well. There were no complications. The patient received written and verbal post procedure care education. Notes 0.25% Betadine drop on surface of eye immediately before and following procedure. 1.25mg/0.05mL Bevacizumab was injected into the eye. us X Rama Phan MD OPHTH CLINIC PROCEDURES Final R esult Performing Organization Address [facility]/ZIP Co de Phone Number [facility] CLIA# [id number] [address] [place] [address] * OCT, RETINA - OU - BOTH EYES (07/12/2024 11:05 AM CDT) Narrative [facility] - 07/12/2024 11:34 AM CDT Optical Coherent Topography Report Indication: To evaluate the macula. Right Eye: There is very minimal intraretinal cystic change. No submacular fluid Left Eye: There is very minimal intraretinal cystic change. No submacular fluid us X Rama Phan MD OPHTH TOMOGRAPHY Final Result Performing Organization Address [facility] Co de Phone Number [facility] * (ABNORMAL) HEMOGLOBIN A1C (06/12/2024 7:23 AM CDT) HEMOGLOBIN A1C 7.5(H) <=5.6 % 06/13/2024 12:03 PM CDT [facility] EST. AVG GLUCOSE, A1C 169 mg/dL 06/13/2024 12:03 PM CDT [facility] Blood Venipuncture / Unknown 06/12/2024 7:23 AM CDT 06/12/2024 7:57 AM CDT Narrative [facility] - 06/13/2024 12:03 PM CDT HGB A1C INTERPRETATION NORMAL: <5.7% PRE-DIABETES: 5.7 - 6.4% DIABETES: 6.5% OR GREATER us Alirio Mckenzie MD CHEMISTRY ORDERABLES Final R esult Performing Organization Address [facility]/ZIP Co de Phone Number [facility] CLIA # [id number] [address] [facility] [place] [address] * (ABNORMAL) LIPID PANEL (06/12/2024 7:23 AM CDT) CHOLESTEROL 89 <200 mg/dL 06/12/2024 10:40 AM [facility] TRIGLYCERIDE 101 <150 mg/dL 06/12/2024 10:40 AM [facility] HDL 34(L) 40 - 59 mg/dL 06/12/2024 10:40 AM [facility] LDL CALCULATED 35 <100 mg/dL 06/12/2024 10:40 AM [facility] NON-HDL CHOLESTEROL 55 <130 mg/dL 06/12/2024 10:40 AM [facility] Blood Venipuncture / Unknown 06/12/2024 7:23 AM T 06/12/2024 7:57 AM CDT Narrative [facility] - 06/12/2024 10:40 AM CD TOTAL CHOLESTEROL mg/dL Desirable <200 Borderline high 200-239 High >=240 TRIGLYCERIDES mg/dL Normal <150 Borderline high 150-199 High 200-499 Very high >=500 HDL CHOLESTEROL mg/dL Low <40 Normal 40-59 Desirable >=60 NON HDL CHOLESTEROL mg/dL Optimal <130 Near Optimal 130-159 Borderline High 160-189 Very High >=190 CALCULATED LDL mg/dL LDL <70, OPTIMAL if have Atherosclerotic cardiovascular disease (ASCVD) or intermediate or higher (>7.5%) 10 year risk of ASCVD including most adults with diabetes. LDL <100, Optimal in adult patients with low (<7.5%) 10 year ASCVD risk LDL 100-160, Suboptimal LDL >160, High LDL >190, Very high LDL calculated using the Friedewald equation. ATPIII Guidelines Reference Ranges for Lipid Panels (NCEP/AMA) . us Alirio Mckenzie MD CHEMISTRY ORDERABLES Final R esult [facility] CLIA # [id number] [address] [address] [place] [address] from Last 3 Months or Most Recently Relevant to Health Maintenance Insurance MEDICARE PART A AND B [employer] [place] [id number] Advance Directives For more information, please contact: [phone] Documents on File Type Date Recorded Patient Certified Pharmacy Technician Expl anation Advance Directive POA 08/10/2024 8:19 AM A dvance Directive POA Advance Directive POA 11/13/2023 12:39 PM Advance Directive POA * Full Code (Latest Code Status on File) Date Activated Date Inactivated Comments 07/30/2024 7:27 PM 08/06/2024 4:06 PM * Full Code Date Activated Date Inactivated Comments 06/11/2024 9:35 PM 06/16/2024 5:22 PM * Full Code Date Activated Date Inactivated Comments 11/13/2023 12:33 PM 11/14/2023 4:19 PM * Full Code Date Activated Date Inactivated Comments 12/30/2022 9:25 AM 12/30/2022 12:55 PM
--- OUTSIDE RECORDS SUMMARY | 2024-09-30 23:46 | XMS_ITS | Patient Health Record ---
Author Organization [facility] Address [address] [place] [address] Care Team Providers Care Oil And Gas Lease Pumper Name Role Phone Humberto Griggs DO Primary Care Provider Unavail able Denis Anton Unavailable [phone] Allergies No Known Allergies Reason For Referral No Information Medications Medication SIG (Take, Route, Frequency, Duration) Notes Start Date End Date Status Mupirocin 2 % 1 application Environmental Health Safety Manager ally Twice a day Active Fluticasone Propionate 93 MCG/ACT 2 sprays (1 spray in each nostril) Nasally Twice a day Active Losartan Potassium 25 MG 1 tablet Orally Once a day; Duration: 30 day(s) Active hydrALAZINE HCl 10 MG 1 tablet with food Orally Three times a day Active Magnesium 250 MG 1 tablet with a meal Orally Once a day Active amLODIPine Besylate 10 MG TAKE 1 TABLET BY MOUTH ONCE DAILY FOR BLOOD PRESSURE Oral; Duration: 90 Active Xyzal Allergy 24HR 5 MG 1 tablet in the evening Orally Once a day Active Metoprolol Succinate ER 100 MG TAKE 1 TABLET BY MOUTH ONCE DAILY FOR BLOOD PRESSURE Oral; Duration: 90 Active Carvedilol 25 MG 1 tablet with food O rally Twice a day Active Rosuvastatin Calcium 40 MG TAKE 1 TABLET BY MOUTH ONCE DAILY FOR CHOLESTEROL Oral; Duration: 90 Active Lisinopril 40 MG 1 tablet Orally Once a day Active Pantoprazole Sodium 40 MG TAKE 1 TABLET BY MOUTH IN THE MORNING FOR STOMACH Oral; Duration: 30 Active Xarelto 10 MG 1 tablet Orally Once a day Active Ergocalciferol 1.25 MG (46838 UT) 1 capsule Orally once weekly for 20 weeks; Duration: 30 day(s) Active Lantus SoloStar 100 UNIT/ML INJECT 75 UNITS SUBCUTANEOUSLY AT BEDTIME NIGHTLY FOR DIABETES Subcutaneous; Duration: 30 Activ e Allopurinol 100 MG Take 1 tablet by karlie th once daily for 30 days; Duration: 30 Active Sildenafil Citrate 20 MG 1 tablet Orally Once a day Active Triamcinolone Acetonide 0.5 % APPLY TO AFFECTED ITCHY AREA OF SKIN 2 4 TIMES A DAY UNTIL RESOLVED External; Duration: 3 Active Potassium Chloride ER 20 MEQ 1 tablet with food Orally Once a day Active Triamterene-HCTZ 75-50 MG TAKE 1 TABLET BY MOUTH ONCE DAILY FOR BLOOD PRESSURE Oral; Duration: 90 Active Allopurinol 100 MG 1 tablet Orally Once a day; Duration: 30 day(s) Active glipiZIDE ER 10 MG TAKE 1 TABLET BY KARLIE TH IN THE MORNING FOR DIABETES Oral; Duration: 90 Active Social History Tobacco Use: Social History Observation Description Date Details (start date - stop date) Former Smoker NA - NA Social History Tobacco Use: Social Info Question Answer Notes xTobacco Use/Smoking Are you a former smoker How long has it been since you last smoked? > 10 years Additional Details Category Social Info Options Details Miscellaneous: Marital status: 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 Children: x2 Living with: spouse Level of Education: Finished hig h school Living Situation: Home Section Notes: Sikhism: Jehovah Witness Smoked 1ppd from [age] y/o Sikhism: Jehovah Witness Smoked 1ppd from [age] y/o Sikhism: Jehovah Witness Smoked 1ppd from [age] y/o Sikhism: Jehovah Witness Smoked 1ppd from [age] y/o Sikhism: Jehovah Witness Smoked 1ppd from [age] y/o Sikhism: Jehovah Witness Smoked 1ppd from [age] y/o Sikhism: Jehovah Witness Smoked 1ppd from [age] y/o Sikhism: Jehovah Witness Smoked 1ppd from [age] y/o Problems Problem Type SNOMED Code ICD Code Onset Dates Problem Status W/U Status Risk Notes Problem 162261486 Type 2 diabetes mellitus with diabetic chronic kidney disease (E11.22) Active confirmed Problem Chronic kidney disease due to hypertension (47894262825412 0) Hypertensive chronic kidney disease with stage 1 through stage 4 chronic kidney disease, or unspecified chronic kidney disease (I12.9) Active confirmed Problem 04484301 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) Active confirmed Problem Benign hypertension (07614812) Hypertension, benign (I10) Active confirmed Problem 35541859 Vitamin D defici ency (E55.9) Active confirmed Problem Diabetic neuropathy (949410681) Diabetic neuropathy (E11.40) Active confirmed Problem Sleep apnea (48738825) Sleep apnea (G47.30) Active confirmed Problem Diabetes mellitus (09840738) Diabetes mellitus (E11.9) Active confirmed Problem Chronic kidney disease stage 3B (disorder) (732504772) Chronic kidney disease, stage 3b (N18.32) Active confirmed Plan Of Treatment Pending Test Test Name Order Date Albumin 65973 11/26/2021 Basic Metabolic Panel (BMP) 79609 2021 Magnesium (B) 44308 11/26/2021 Phosphorus (B) 59782 11/26/2021 Protein (U) Random 21569 11/26/2021 Uric Acid (B) 73579 11/26/2021 Vitamin D Total (B) 85153 11/26/2021 Creatinine (U) 58402 11/26/2021 UA Reflex Micro, Reflex Cult 90789, 8101 5, 04184 11/26/2021 PTH Intact 94978 11/26/2021 Insurance Providers Payer Name Payer Address Payer Phone Subscriber Number Group Number Insured Name Patient Relationship to Insured Coverage Start Date Coverage End Date [place] [address] [place] [id number] Andrés Dumont Self - patient is the insured [employer] [place] [address] [address] [place] [phone] [id number] Andrés Dumont Self - patient is the insured Medical (General) History Medical History History ICD Code type II diabetes mellitus hypertension (1997) hyperlipidemia peripheral neuropathy CKD secondary hyperparathyriodism Surgical History Surgery Date(Month/Year) cholecystectomy 08/2021 inguinal hernia repair right with hyproc [place] evacuation Hospitalization History Reason Date(Month/Year) see surgical
--- OUTSIDE RECORDS SUMMARY | 2024-09-30 23:46 | XMS_ITS | Data Portability ---
Author Organization CAYETANO Aly [facility], [facility] Address [address] [place] [address] Care Team Providers Care Excellence Specialist Name Role Phone CHA JONES Primary Care Provider Unavailabl e Assessment No assessment recorded. Plan of Treatment Reminders Order Date Submit Date Provider Last Modified By Organization Details Last Modified Time Details Appointments None record ed. Lab None record ed. Referral None record ed. Procedures None record ed. Surgeries None record ed. Imaging None record ed. Medication Orders None record ed. Patient TargetsNo targets recorded. Patient Instructions Encounter Date Encounter Id Patient Instructions Last Modified By Organization Details Last Modified Time 08/22/2024 [id number] Doing well, hemoglobin improving. Working with therapy. [email or web address] Not available 08/22/2024 16:41:45 09/05/2024 [id number] Worsening edema, increase lasix to 40mg with BMP on Thursday. Will additionally have him wear tubigrips. Still not sleeping well at night, mood still anxious, increase zoloft to 50mg at hs. Not available 09/07/2024 12:50:34 09/15/2024 [id number] Continued edema, with little to no improvement. Will d/c hydralazine. Increase lasix to bid and start aldactone 25mg daily. Labs Thursday. f/u 1 week. [email or web address] Not available 09/15/2024 11:55:24 09/22/2024 [id number] edema improved form last week. sugars too low, will decrease lantus to 25mg bid. Not available 09/22/2024 12:49:04 Reason for Referral None Reported. Results Created Date Observation Date Name Description Value Unit Range Abnormal Flag Note LastModifiedBy Organization Detail LastModifiedTime 07/14/19 25 07/13/2024 mendoza haider study No observ ation record ed. [email or web address] [facility] [address], [place], [address], 07/20/2024 17:58:00 07/14/19 25 07/13/2024 [place], modif ied mendoza haider study No observ ation record ed. [email or web address] [facility] Imaging Orders [address], [place], [address], 07/20/2024 17:18:59 Result Notes None recorded. Problems Name Problem SNOMED Code Status Onset Date Resolution Date Notes Provider Name and Address Organization Details Recorded Time [facility] hyperten sai 31377277 Active 2022 Delmy jeter [facility] 5 07:56:23 Atrial fibrilla tion 57023019 Active 2023 Delmy jeter [facility] 5 07:55:39 Age related macular degenera tion 811055909 Active 2023 Delmy jeter [facility] 5 07:55:35 Congesti ve heart failure 42922420 Active 2023 Delmy jeter [facility] 5 07:55:51 Chronic kidney disease stage 3B 693015954 Active 2023 Delmy jeter [facility] 5 07:55:45 Edema of lower extremit y 962850760 Active 2023 Delmy jeter [facility].CJose Antonio 5 07:56:23 Acute bronchit is 47889314 Completed 202306/21/2024 Delmy Davey jeter [facility] 5 07:55:32 Hypokale jerica 46912439 Active 2023 Delmy Davey jeter [facility] 5 07:56:23 Pain of bilatera l hip joints 75654411344 320380 Active 2023 Delmy jeter [facility] 5 07:55:42 Gastroes ophageal reflux disease 646819431 Active 2023 Delmy jeter [facility] 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 5 07:56:23 Abnormal gait due to muscle weakness 774571044 Active 2024 Delmy jeter [facility] 5 07:56:23 Right carotid artery stenosis 66351393365 9100 Active 2024 Delmy jeter [facility] 5 11:28:49 Chronic bronchit is 58931916 Active 2024 Delmy jeter [facility] 5 11:28:47 Primary biliary cholangi tis 75525470 Active 2024 Cha Jones, [address], [address] , [facility] 5 11:27:33 Difficul ty sleeping 711386661 [facility] 17:35:55 Closed fracture of hip 070626553 Active 2024 [facility] 5 16:41:22 Type 2 diabetes mellitus 03912754 Active 2022 [facility] 3 11:57:16 Bilatera l lower limb edema 581676191 Active 2024 [facility] 5 12:49:21 Hypercho lesterol emia 86748310 Active 2022 [facility] 5 07:56:23 Ulcer of toe 841864999 Active 2022 Cha Jones, [address], [address] , [facility] 3 09:38:37 Foot ulcer due to type 2 diabetes mellitus 70472949612 00 Active 2022 DIABETIC TOE ULCER; Impressi on: Right toe, resolved , continue s f/u with Dr. Goodman Delmy jeter [facility] 5 07:56:23 Notes:Some problems listed i n Documents: #[id number], #[id number], #[id number], #[id number] could not be added to this patient's chart. Please review these documents and add these problems to the patient's chart manually as needed. Problem Notes None recorded. Procedures Surgical History Date Name Laterality Status Provider Name and Address Organization Details Recorded Time tonsillectomy completed ALEXIA BURCIAGA [facility] 05/25/2024 11:58:08 Cholecystectomy completed ALEXIA BURCIAGA [facility]LJose AntonioCJose Antonio 05/25/2024 11:58:14 Imaging Results None recorded. Procedure Notes None recorded. Medical Equipment None Reported. Allergies Allergen ID Allergen Name Allergen Category Reaction Reaction Severity Criticality Documentation Date Start Date Code Code System Note Provider Name and Address Organization Details Recorded Time 59 lovastati n medicatio n Not available Not available Not available 06/06/2022 6472 RxNorm Sondra Quick steffany [facility]LLaura 12:00:13 Medications Name Sig Start Date Stop Date Status Note LastModified by Organization Details LastModified Time Prescript ion - New 09/22 completed Not Available Not Available Not Available Prescript ion - Prior Authoriza tion Request active Arion 5/325 Not Available Not Available Not Available hydralazi ne 10 mg tablet TAKE 1 TABLET BY MOUTH THREE TIMES DAILY 08/14 completed Not Available Not Available Not Available carvedilo l 25 mg tablet TAKE 1 TABLET BY MOUTH TWICE DAILY WITH MEALS 11/16 completed Not Available Not Available Not Available doxycycli ne hyclate 100 mg capsule TAKE 1 CAPSULE BY MOUTH TWICE DAILY FOR 10 DAYS 10/27 completed Not Available Not Available Not Available carvedilo l 12.5 mg tablet TAKE 1 TABLET BY MOUTH TWICE DAILY WITH MEALS active Not Available Not Available No t Available azithromy amada 250 mg tablet TAKE 1 TABLET BY MOUTH ONCE DAILY (START ON DAY 2 OF THERAPY) 08/14 completed Not Available Not Available Not Available metoprolo l tartrate 100 mg tablet TAKE 1 TABLET BY MOUTH EVERY 12 HOURS 08/14 completed Not Available Not Available Not Available benzonata te 200 mg capsule TAKE 1 CAPSULE BY MOUTH THREE TIMES DAILY NEEDED 07/21 completed Not Available Not Available Not Available hydrocodo ne 5 mg-acetam inophen 325 mg tablet Take 1 tablet every 6 hours by oral route as needed for 30 days. 2024 active Not Available Not Available Not Avai lable glipizide ER 10 mg tablet, extended release 24 hr TAKE 1 TABLET BY MOUTH ONCE DAILY IN THE MORNING 2024 active Not Available Not Available Not Avai lable lisinopri l 20 mg tablet TAKE 1 TABLET BY MOUTH ONCE DAILY FOR BLOOD PRESSURE active Not Available Not Available No t Available prednison e 20 mg tablet TAKE 2 TABLETS BY MOUTH ONCE DAILY IN THE MORNING FOR 10 DAYS 07/04 completed Not Available Not Available Not Available Lantus U-100 Insulin 100 unit/mL subcutane ous solution twice a day 07/14 completed Recorded 04/07/19 23 1:15PM by Cha Jones DO, Office Visit; Refill Quantity : 0; Not Available Not Available Not Available hydralazi ne 25 mg tablet TAKE 1 TABLET BY MOUTH TWICE DAILY 07/20 completed Not Available Not Available Not Available potassium chloride ER 10 mEq tablet,ex tended release TAKE 1 TABLET BY MOUTH TWICE DAILY active Not Available Not Available No t Available clopidogr el 75 mg tablet TAKE 1 TABLET BY MOUTH ONCE DAILY DIRECTED FOR STROKE active Not Available Not Available No t Available allopurin ol 100 mg tablet TAKE 1 TABLET BY MOUTH ONCE DAILY 08/14 completed Not Available Not Available Not Available sildenafi l 25 mg tablet TAKE 1 TO 2 TABLETS BY MOUTH EVERY 2 HOURS BEFORE DESIRED EFFECT, MAXIMUM OF 2 TABS PER 24 HOURS 04/22 completed Not Available Not Available Not Available tamsulosi n 0.4 mg capsule TAKE 2 CAPSULES BY MOUTH ONCE DAILY 08/14 completed Not Available Not Available Not Available OneTouch Ultra Test strips USE 1 TEST STRIP TO CHECK BLOOD GLUCOSE THREE TIMES DAILY active Not Available Not Available No t Available amlodipin e 10 mg tablet TAKE 1 TABLET BY MOUTH ONCE DAILY FOR BLOOD PRESSURE 08/14 completed Not Available Not Available Not Available benzonata te 100 mg capsule TAKE 1 CAPSULE BY MOUTH EVERY 6 HOURS NEEDED FOR COUGH 08/14 completed Not Available Not Available Not Available pantopraz ole 40 mg tablet,de layed release TAKE 1 TABLET BY MOUTH ONCE DAILY IN THE MORNING active Not Available Not Available No t Available triamcino lone acetonide 0.1 % topical ointment APPLY OINTMENT TOPICALL Y TO AFFECTED AREA (S) ON TRUNK AND EXTREMIT IES TWICE DAILY FOR NO MORE THAN 2 WEEKS PER MONTH 10/06 completed Not Available Not Available Not Available fluoromet holone 0.1 % eye drops,[place] monteson INSTILL ONE DROP IN THE LEFT EYE THREE TIMES DAILY 08/14 completed Not Available Not Available Not Available ursodiol 300 mg capsule TAKE 5 CAPSULES BY MOUTH ONCE DAILY IN 2-3 DIVIDED DOSES active Not Available Not Available No t Available hydralazi ne 50 mg tablet TAKE 1 TABLET BY MOUTH THREE TIMES DAILY 04/22 completed Not Available Not Available Not Available mupirocin 2 % topical ointment APPLY TWICE DAILY FOR 2 WEEKS 10/06 completed Not Available Not Available Not Available furosemid e 20 mg tablet TAKE 1 TABLET BY MOUTH ONCE DAILY DIRECTED active Not Available Not Available No t Available triamtere ne 75 mg-hydroc hlorothia zide 50 mg tablet TAKE 1 TABLET BY MOUTH ONCE DAILY IN THE MORNING active Not Available Not Available No t Available ergocalci ferol (vitamin D2) 1,250 mcg (50,000 unit) capsule TAKE 1 CAPSULE BY MOUTH ONCE A WEEK FOR 20 WEEKS FOR 30 DAYS 08/14 completed Not Available Not Available Not Available albuterol sulfate HFA 90 mcg/actua tion aerosol inhaler INHALE 2 PUFFS BY MOUTH EVERY 4 TO 6 HOURS NEEDED active Not Available Not Available No t Available lisinopri l 40 mg tablet TAKE 1 TABLET BY MOUTH ONCE DAILY 12/27 completed Not Available Not Available Not Available fluticaso ne propionat e 50 mcg/actua tion nasal spray,[place] USE 2 SPRAY(S) IN EACH NOSTRIL TWICE DAILY active Not Available Not Available No t Available doxycycli ne hyclate 100 mg tablet TAKE 1 TABLET BY MOUTH TWICE DAILY FOR 7 DAYS 07/21 completed Not Available Not Available Not Available calcitrio l 0.25 mcg capsule 09/22 completed Not Available Not Available Not Available amoxicill in 875 mg-potass ium clavulana te 125 mg tablet TAKE 1 TABLET BY MOUTH EVERY 12 HOURS FOR 7 DAYS 10/11 completed Not Available Not Available Not Available escitalop kalia 10 mg tablet TAKE 1 TABLET BY MOUTH ONCE DAILY AT BEDTIME FOR SLEEP active Not Available Not Available No t Available rosuvasta tin 20 mg tablet TAKE 1 TABLET BY MOUTH ONCE DAILY FOR CHOLESTE ROL active Not Available Not Available No t Available rosuvasta tin 40 mg tablet TAKE 1 TABLET BY MOUTH ONCE DAILY active Not Available Not Available No t Available Klor-Con M20 mEq tablet,ex tended release Take 1 tablet every day by oral route. 11/16 completed Not Available Not Available Not Available coenzyme Q10 200 mg capsule Take 1 capsule every day by oral route. 06/21 completed Not Available Not Available Not Available sildenafi l (pulmonar y hypertens ion) 20 mg tablet TAKE 1-2 TABLETS BY MOUTH 1-4 HOURS BEFORE DESIRED EFFECT. TAKE NO MORE THAN 2 TABS IN 24 HOURS 04/22 completed Not Available Not Available Not Available loratadin e daily 12/24 completed 45136; Recorded 10/16/19 22 2:59PM by Elvia Singh (Authorpasquale martinez through Cha Jones , DO), Office Visit; Not Available Not Available Not Available Lasix every morning 12/24 completed DM/sd; 92027; Recorded 12/12/19 22 1:18PM by Elvia Singh (Authori michelle through Cha Jones , DO), Refill Request; Refill Quantity : 30; Tablet; Not Available Not Available Not Available fluconazo le daily 12/24 completed 0; Recorded 06/04/19 11:43AM by Pina Smart, Office Visit; Not Available Not Available Not Available carvedilo l two times daily 12/24 completed 75491; Recorded 02/26/20 22 11:07AM by Pina Smart (Authorpasquale martinez through Cha Jones DO), Office Visit; Refill Quantity : 60; Tablet; Not Available Not Available Not Available hydralazi ne three times daily 12/24 completed DM/sd; 67102; Recorded 01/22/20 22 10:41AM by Rafiq Medellin (Vince martinez through Cha Jones , DO), Office Visit; Refill Quantity : 0; Not Available Not Available Not Available lisinopri l daily 12/24 completed 46518; Recorded 11/13/19 22 9:23AM by Rafiq Medellin (Authorpasquale martinez through Cha Jones DO), Office Visit; Refill Quantity : 90; Tablet; Not Available Not Available Not Available sildenafi l daily 12/24 completed 92780; Recorded 10/16/19 2:59PM by Elvia Singh (Authori zed through [email or web address] , DO), Office Visit; Not Available Not Available Not Available glipizide daily 12/24 completed 26780; Recorded 11/13/19 9:23AM by Rafiq Medellin (Authori zed through [email or web address] , DO), Office Visit; Not Available Not Available Not Available multivita min active Not Available Not Available Not Available Potassium Chloride ER two times daily 12/24 completed DM/sd; 43413; Recorded 03/27/19 1:52PM by Elvia Singh (Authori elizabethd through [email or web address] , DO), Annotati on/Adden dum; Refill Quantity : 0; Not Available Not Available Not Available Lantus Solostar U-100 Insulin 100 unit/mL (3 mL) subcutane ous pen inject 20 units EVERY MORNING and again at night active Not Available Not Available No t Available levocetir izine 5 mg tablet Take 1 tablet every day by oral route. 06/21 completed Not Available Not Available Not Available Xarelto 10 mg tablet 06/21 completed Not Available Not Available Not Available Xarelto 20 mg tablet TAKE 1 TABLET BY MOUTH DAILY; must administ er with evening meal active Not Available Not Available No t Available Eliquis 2.5 mg tablet TAKE 1 TABLET BY MOUTH TWICE DAILY 08/14 completed Not Available Not Available Not Available Eliquis two times daily 12/24 completed 16085; Recorded 11/13/19 9:23AM by Rafiq Medellin (Authori zed through [email or web address] , DO), Office Visit; Refill Quantity : 60; Tablet; Not Available Not Available Not Available potassium chloride ER 20 mEq tablet,ex tended release Take 1 tablet every day by oral route. 06/21 completed Not Available Not Available Not Available FreeStyle Kalani 2 Sensor as directed 05/25 completed Not Available Not Available Not Available FreeStyle Kalani 2 [place] as directed 05/25 completed Not Available Not Available Not Available Paxlovid 300 mg (150 mg x 2)-100 mg tablets in a dose pack TK 2 NIRMATRE LVIR TS AND 1 RITONAVI R T TOGETHER PO TWICE DAILY FOR 5 DAYS 04/22 completed Not Available Not Available Not Available Mounjaro 2.5 mg/0.5 mL subcutane ous pen injector INJECT 1/2 (ONE-CRISTAL F) ML ONCE A WEEK DIRECTED FOR 28 DAYS 04/22 completed Not Available Not Available Not Available Vitals Date Recorded Body height Heart rate Respiratory rate Body temperature Oxygen saturation Oxygen saturation in Arterial blood by Pulse oximetry Systolic And Diastolic Provider Name and Address Organization Details Last Updated DateTime 5 187.96 cm 86 /min 22 /min 98.5 [degF] 98 % 98 % 122/74 mm[Hg] [facility] 5 16:37:57 Date Recorded Body height Heart rate Respiratory rate Body temperature Oxygen saturation Oxygen saturation in Arterial blood by Pulse oximetry Systolic And Diastolic Provider Name and Address Organization Details Last Updated DateTime 5 187.96 cm 68 /min 20 /min 98.6 [degF] 98 % 98 % 132/70 mm[Hg] [facility] 5 12:46:43 Date Recorded Body height Heart rate Respiratory rate Body temperature Oxygen saturation Oxygen saturation in Arterial blood by Pulse oximetry Systolic And Diastolic Provider Name and Address Organization Details Last Updated DateTime 5 187.96 cm 77 /min 18 /min 97.6 [degF] 98 % 98 % 136/75 mm[Hg] [facility] 5 11:53:27 Date Recorded Body height Heart rate Respiratory rate Body temperature Oxygen saturation Oxygen saturation in Arterial blood by Pulse oximetry Systolic And Diastolic Provider Name and Address Organization Details Last Updated DateTime 5 187.96 cm 65 /min 14 /min 97.6 [degF] 97 % 97 % 140/70 mm[Hg] [facility] 12:43:37 Social History Question Answer Notes LastModified by Organizat Mix & Meet Details LastModified Time Tobacco Smoking Status Former Smoker Edvin jeter [facility] 10/05/2023 09:45:48 What Is Your Level Of Caffeine Consumption? Moderate Coffee [email or web address] Information not available 05/25/2024 How Many Years Have You Smoked Tobacco? 20 Information not available 10/05/2023 Sex: Unknown Functional Status Question Answer Note LastModified by Organizat ion Details LastModified Time Do you use any illicit or recreational drugs? No [email or web address] Information not available 08/14/2022 Do you or have you ever used any other forms of tobacco or nicotine? No [email or web address] Information not available 08/14/2022 What is your level of alcohol consumption? None [email or web address] Information not available 08/14/2022 Are you currently employed? No [email or web address] Information not available 05/25/2024 Are you able to walk? YESASSIST walker [email or web address] Information not available 05/25/2024 Are you able to care for yourself? Yes Information n ot available 05/25/2024 Mental Status None recorded. Family History Relationship Description Onset Age of this Age Resolved Age Notes LastModified by Organization Details LastModified Time Father Diabetes mellitus [email or web address] Not available 05/25 11:55:50 Father Motor vehicle accident age 50 [email or web address] Not available 05/25/2024 11:56:43 Mother Malignant tumor of colon age 73 [email or web address] Not available 05/25/2024 11:56:22 Paternal Grandmother Natural age 102 Not available 05/25/2024 11:57:08 Medical History Condition Response Coronary Artery Disease N Other Y Gout N Kidney Stones N Blood Diseases N Hyperthyroidism N Breast Cancer N Blood Transfusion N Hypothyroidism N Depression N COPD N Lung Disease N Defects or Inherited Disease N Developmental or Behavioral Disorders N Breast Problem N Difficulty Swallowing N Anesthesia Complications N Anxiety Disorder N Meniere's disease N Muscle, Joint, or Bone Problems N Vision or Eye Problems N Arthritis N Polyps N Infertility N Cancer N Varicosities N Stroke N Endometriosis N Bladder or Kidney Problems N High Cholesterol Y Liver Disease N Headaches N Fibromyalgia N Kidney Disease Y Allergies/Hayfever N Heart Problems Y Ear or Hearing Problems N Hospitalizations N Thyroid Problems N GI Problems N ADD/ADHD N Skin Problems Y Eating Disorder N Anemia N Constipation N Mental Illness N Ovarian Cancer N Diabetes Y Bedwetting N Seizures/Epilepsy N Tuberculosis N Eczema N Diverticulitis N Abuse/Domestic Violence N Asthma N Reflux/GERD N Hepatitis N Heart Disease N Pulmonary Embolism N Chronic Ear Infections N Pre-Eclampsia N Hypertension Y Chicken Pox N Autism Spectrum Disorder (ASD) N Osteoporosis N Thrombophilias N Immunizations Vaccine Type Date Status Note Provider Nam e and Address Organization Details Recorded Time zoster recombinant 2 completed Cha Jones DO [address] [place] [address], [phone], [facility] 04/22/2023 11:34:44 zoster recombinant 2 completed Cha Jones DO [address] [place] [address], [phone], [facility] 04/22/2023 11:34:44 Influenza, high-dose, quadrivalent, PF 2 completed Cha Jones DO [address] [place] [address], [phone] 04/22/2023 11:34:45 COVID-19, mRNA, LNP-S, PF, 100 mcg/0.5mL dose or 50 mcg/0.25mL dose 1 completed Cha Jones DO [address] [place] [address], [phone], [facility] 04/22/2023 11:34:45 COVID-19, mRNA, LNP-S, PF, 100 mcg/0.5mL dose or 50 mcg/0.25mL dose 1 completed Cha Jones DO [address] [place] [address], [phone], [facility] 04/22/2023 11:34:45 COVID-19, mRNA, LNP-S, PF, 100 mcg/0.5mL dose or 50 mcg/0.25mL dose 1 completed Cha Jones DO [address] [place] [address], [phone], [facility] 04/22/2023 11:34:45 COVID-19, mRNA, LNP-S, bivalent, PF, 50 mcg/0.5 mL or 25mcg/0.25 mL dose 2 completed Cha Jones DO [address] [place] [address], [phone], [facility] 04/22/2023 11:34:45 pneumococcal polysaccharide PPV23 8 completed Cha Jones DO [address] [place] [address], [phone], [facility] 04/22/2023 11:34:45 Pneumococcal conjugate PCV 13 9 completed Cha Jones DO [address] [place] [address], [phone], [facility] 04/22/2023 11:34:45 Influenza, high-dose, quadrivalent, PF 3 completed Delmy jeter [facility] 06/21/2024 09:00:08 COVID-19, mRNA, LNP-S, PF, 50 mcg/0.5 mL 3 completed Delmy jeter [facility] 06/21/2024 09:00:08 Pneumococcal conjugate PCV20, polysaccharide [id number] conjugate, adjuvant, PF 4 completed Cha Jones DO [address] [place] [address], [phone], [facility]. 04/23/2023 08:45:56 Influenza, split virus, trivalent, PF 4 completed PINA SMART steffany [facility]. 12/28/2023 11:39:19 Past Encounters Encounter ID Performer Location Encounter Start Date Encounter Closed Date Diagnosis/Indication Diagnosis SNOMED-CT Code Diagnosis ICD10 Code Diagnosis Note [id number] Cha Jones DO [facility] ([facility]) [address] [place] [id number] 08/14/2022 08:51:29 08/14/2022 10:00:37 Type 2 diabetes mellitus 86036563 E11.69 E11.42 E11.22 a1c of 8.4 in May. pt has struggled with uncontroll ed and variable glucose levels for years. can be 70 up to 300. hard to control. pt has worked on diet and weight management . will repeat labs today. continue with podiatry. pt to continue meds: Glipizide 10mg and Lantus 32 units bid. will star Essential hypertension 10857794 I10 stable. conitnue: Amlodipine 10mg, Carvedilol 12.5mg bid, Hydralazin e 10mg tid, Lisinopril 40mg Ulcer of toe 889728279 L 97.509 currently healed. not seeing wound care anymore. Followed by Podiatry, Dr. Hensley. continues with diabetic shoes and daily foot care. Mixed hyperlipidemia 267 720735 E78.2 Stable. Will repeat labs. Continue rosuvastat in. Counseled on diet and exercise. Edema of l ower extremity 756747387 R60.0 concern for fluid overload. pt with hx of afib, I do not find hx of chf on available records. will get further records. pt to start lasix daily for 1 wk. limit salt. monitor HR and afib. Return to office with no improvemen t or any problems. Go to ER with severe worsening or severe problems. [id number] Cha Jones DO [facility] ([facility]) [address] [place] [id number] 12/24/2022 11:01:31 12/24/2022 13:53:03 Benign essential hypertension 4473223 I10 Hypercholesterolemia 136 47163 E78.00 Stable. Will repeat labs next appt. Continue Atorvastat in. Counseled on diet and exericse. Type 2 ciro betes mellitus 16891261 E11.69 E11.42 E11.22 A1c in july improved to 6.8.contin ue with podiatry. pt to continue meds: Glipizide 10mg and Lantus 32 units bid. will repeat labs. Essential hypertension [id number] I10 Blood pressure getting low multiple times. We will decrease hydralazin e down to 25mg TID. conitnue: Amlodipine 10mg, Carvedilol 12.5mg bid, Lisinopril 40mg monitor blood pressure closely at home. [id number] JACQUI STRATTON [facility] ([facility]) [address] [place] [address] [phone] 5 03/07/2023 11:53:03 03/14/2023 07:29:37 Viral screening [id number] Z11.52 COVID-19 [id number] U07.1 [id number] Cha Jones DO [facility] ([facility]) [address] [place] [address] [phone] 5 04/22/2023 10:30:43 04/22/2023 12:34:01 Essential hypertension 86581976 I10 Blood pressure getting low multiple times. We will decrease hydralazin e down to 25mg TID. continue: Amlodipine 10mg, Carvedilol 12.5mg bid, Lisinopril 40mg monitor blood pressure closely at home.- Continue to monitor, counseled on fluid intake, stay well hydrated, log BP and HR when having symptoms, also log glucose. Hypercholesterolemia 136 28021 E78.00 Stable. Continue Atorvastat in. Counseled on diet and exercise. Foot ulcer due to type 2 diabetes mellitus [id number] 100 E11.621 04/22/23- healed, continues seeing Podiatry. Atrial fibrillation 4943 6004 I48.91 Continue Xarelto and Carvedilol , following with Cardiology . Type 2 ciro betes mellitus 34146601 E11.69 E11.42 E11.22 04/22/23- A1c 7.2 on 12/24/22, will repeat lab today. Counseled on diet, exercise. Age relate d macular degeneration 921153968 H35.3290 Continue care with Ophthalmol ogist. Congestive heart failure 52401240 I11.0 Continue following with Cardiology . Chronic ki dney disease stage 3B 999000473 N18.32 E26.1 Labs today. Edema of l ower extremity 905614577 R60.0 04/22/23- continues Furosemide . Allergic rhinitis 633050 04 J30.9 Counseled continue nasal spray, daily allergy med Claritin/ Zyrtec, switch from what he is using now. Active or passive immunization 901405196 Z23 Flu vax UTD Dec 2022. Prevnar 20 today. [id number] Cha Jones DO [facility] ([facility]) [address] [place] [address] [phone] 5 05/15/2023 10:21:46 05/15/2023 13:51:50 Type 2 diabetes mellitus 19084256 E11.69 E11.42 E11.22 glocose improved, will start CGMS. counseled Chronic ki dney disease stage 3B 916600009 N18.32 E26.1 improved slightly. counseled on fluid intake, diet, glucose management . Essential hypertension 62678962 I10 Blood pressure getting low multiple times. We will decrease hydralazin e down to 25mg BID. continue: Amlodipine 10mg, Carvedilol 12.5mg bid, Lisinopril 40mg monitor blood pressure closely at home.- Continue to monitor, counseled on fluid intake, stay well hydrated, log BP and HR when having symptoms, also log glucose. [id number] Cha Jones DO [facility] ([facility]) [address] [place] [address] [phone] 5 06/10/2023 15:27:26 06/10/2023 16:47:08 Acute bronchitis 21934275 J20.9 Counseled continue Doxy, start Prednisone , Benzonatat e. Counseled Prednisone may increase glucose. [id number] Cha Jones DO [facility] ([facility]) [address] [place] [address] [phone] 5 06/16/2023 09:40:54 06/16/2023 14:02:41 Type 2 diabetes mellitus 43932342 E11.69 E11.42 E11.22 06/16/23- Reviewed and discussed glucose log, improved until he started Prednisone , expect to come back down after Prednisone , continue current tx. Will try CGM sample today, Dexcom, insurance won't cover Kalani. Essential hypertension 75646566 I10 06/16/23- reviewed and discussed BP log, stable, continue current tx. [id number] Cha Jones DO [facility] ([facility]) [address] [place] [address] [phone] 5 07/15/2023 10:59:07 07/15/2023 11:42:02 Type 2 diabetes mellitus 53830808 E11.69 E11.42 E11.22 07/15/23- Running 200's all day. Counseled increase Lantus from 35u BID to 38u BID, keep appt in one week on 07/22/23. Consider changing Glipizide to IR instead of ER.06/16/23 - Reviewed and discussed glucose log, improved until he started Prednisone , expect to come back down after Prednisone , continue current tx. Will try CGM sample today, Dexcom, insurance won't cover Kalani. [id number] Cha Jones DO [facility] ([facility]) [address] [place] [address] [phone] 5 07/22/2023 10:25:41 07/22/2023 12:06:36 Type 2 diabetes mellitus 66361764 E11.69 E11.42 E11.22 07/22/23- Tolerating CGM, feels this is helping with glucose control, counseled on diet, exercise, decrease sugar in diet. Continue Lantus, Glipizide. F/u 2 months. Repeat lab in 4 months.06/22 07/14- Running 200's all day. Counseled increase Lantus from 35u BID to 38u BID, keep appt in one week on 07/22/23. Consider changing Glipizide to IR instead of ER.06/16/23 - Reviewed and discussed glucose log, improved until he started Prednisone , expect to come back down after Prednisone , continue current tx. Will try CGM sample today, Dexcom, insurance won't cover Kalani. Hypokalemia 13524775 E87 .6 Continues Lasix, will refill Potassium. Adult heal th examination 440898490 Z00.00 Reviewed and discussed recent lab, elevated liver enzymes, Hepatitis screening today. Counseled on diet, exercise, weight loss. Hypercholesterolemia 136 68713 E78.00 Counseled decrease Rosuvastat in from 40mg to 20mg daily d/t liver enzymes. Liver enzy mes outside reference range 079379986 R94.5 Reviewed lab, Hepatitis screening today, repeat lab in 4 months. [id number] Cha Jones DO [facility] ([facility]) [address] [place] [address] [phone] 5 09/23/2023 10:43:22 09/23/2023 18:00:27 Type 2 diabetes mellitus 93942763 E11.69 E11.42 E11.22 09/23/23- Reviewed CGM readings, counseled on diet, starting some exercise, continue current tx. F/u 2 months, labs prior.- Tolerating CGM, feels this is helping with glucose control, counseled on diet, exercise, decrease sugar in diet. Continue Lantus, Glipizide. F/u 2 months. Repeat lab in 4 months.06/22 07/14- Running 200's all day. Counseled increase Lantus from 35u BID to 38u BID, keep appt in one week on 07/22/23. Consider changing Glipizide to IR instead of ER.06/16/23 - Reviewed and discussed glucose log, improved until he started Prednisone , expect to come back down after Prednisone , continue current tx. Will try CGM sample today, Dexcom, insurance won't cover Kalani. Essential hypertension 55956667 I10 09/23/23- stable, continue current tx.06/16/23 - reviewed and discussed BP log, stable, continue current tx. [id number] JACQUI BROWN [facility] ([facility]) [address] [place] [address] [phone] 5 10/05/2023 09:41:48 10/05/2023 12:13:36 Acute pansinusitis 7540225 J01.40 Discussed use of antibiotic . Take with food.May use Virgilio's nasal inserts and also apply on chest. Push oral fluids. Consider nasal saline rinses and otc decongesta nt.Use tylenol/mo raysa for reno. [id number] Cha Jones DO [facility] ([facility]) [address] [place] [phone] 10/12/2023 11:30:35 10/12/2023 13:41:05 Acute bronchitis 28594987 J20.9 No significan t improvemen ts with Augmentin. Will switch to doxycyclin e and add prednisone . Counseled. Return with worsening. [id number] Cha Jones DO [facility] ([facility]) [address] [place] [address] 11/17/2023 11:02:02 11/17/2023 14:19:34 Hypokalemia 05710226 E87.6 11/17/23- Reviewed recent lab, Lasix 40mg daily and Potassium 20meq daily for 5 days. Counseled on use of Potassium when taking Lasix. Essential hypertension 00135489 I10 11/17/23- counseled resume Lisinopril 20mg daily, had stopped it after [facility] stay. 4- stable, continue current tx.06/16/23 - reviewed and discussed BP log, stable, continue current tx. Type 2 ciro betes mellitus 86349148 E11.69 E11.42 E11.22 11/17/23- A1c 7.4 yesterday, 11/16/23, up from 7.1 on 07/20/23, advised resume DM meds, was taken off these during [facility] stay. Counseled on diet, exercise.- Reviewed CGM readings, counseled on diet, starting some exercise, continue current tx. F/u 2 months, labs prior.- Tolerating CGM, feels this is helping with glucose control, counseled on diet, exercise, decrease sugar in diet. Continue Lantus, Glipizide. F/u 2 months. Repeat lab in 4 months.06/22 07/14- Running 200's all day. Counseled increase Lantus from 35u BID to 38u BID, keep appt in one week on 07/22/23. Consider changing Glipizide to IR instead of ER.06/16/23 - Reviewed and discussed glucose log, improved until he started Prednisone , expect to come back down after Prednisone , continue current tx. Will try CGM sample today, [employer], insurance won't cover Kalani. Chronic ki dney disease stage 3B 521921453 N18.32 E26.1 monitoring . Congestive heart failure 80322589 I11.[address] [facility] 11/14/23: Summary and Conclusion :- Left ventricle: Not well visualized . The cavity size is normal. Wallthickn ess is normal. Global systolic function is vigorous. The estimatede jection fraction is 65-70%. For Epic reporting: the left ventricula rejection fraction is 68% No diagnostic regional wall motion abnormalit yidentifie d. Interventr icular septum shows abnormal bouncy motion. Diastolicf unction is indetermin ate.- Right ventricle: The cavity size is normal. Systolic function is normal.Sys tolic pressure is within the normal range. The RV pressure during systoleis 13mm Hg. 11/17/23- Advised increase Furosemide from 20mg to 40mg ( 2 tablets daily), resume Potassium, 20meq ( 2 10meq tablets) for 5 days, then resume 1 tablet daily of each. Monitor weight daily at home, let me know if increasing or worsening SOB. F/u next week, repeat lab. [id number] Cha Jones DO [facility] ([facility]) [address] [place] [address] [phone] 5 11/24/2023 11:47:09 11/25/2023 11:01:59 Chronic kidney disease stage 3B [id number] N18.32 E26.1 monitoring . [id number] Cha Jones DO [facility] ([facility]) [address] [place] [address] [phone] 5 11/25/2023 11:09:55 11/25/2023 17:47:32 Hypokalemia 39545626 E87.6 11/25/23- repeat lab with K+ 3.1, counseled take Potassium 20meq daily.11/16- Reviewed recent lab, Lasix 40mg daily and Potassium 20meq daily for 5 days. Counseled on use of Potassium when taking Lasix. Essential hypertension 39633154 I10 11/17/23- counseled resume Lisinopril 20mg daily, had stopped it after [facility] hospital stay. 4- stable, continue current tx.06/16/23 - reviewed and discussed BP log, stable, continue current tx. Chronic ki dney disease stage 3B 873609090 N18.32 E26.1 monitoring . Congestive heart failure 94564918 I11.[address] [facility] 11/14/23: Summary and Conclusion : - Left ventricle: Not well visualized . The cavity size is normal. Wall thickness is normal. Global systolic function is vigorous. The estimated ejection fraction is 65-70%. For Epic reporting: the left ventricula r ejection fraction is 68% No diagnostic regional wall motion abnormalit y identified . Interventr icular septum shows abnormal bouncy motion. Diastolic function is indetermin ate. - Right ventricle: The cavity size is normal. Systolic function is normal. Systolic pressure is within the normal range. The RV pressure during systole is 13mm Hg. 11/17/23- Advised increase Furosemide from 20mg to 40mg ( 2 tablets daily), resume Potassium, 20meq ( 2 10meq tablets) for 5 days, then resume 1 tablet daily of each. Monitor weight daily at home, let me know if increasing or worsening SOB. F/u next week, repeat lab. 11/25/23- Exacerbati on improved at this time. Counseled monitor weight closely, if increased weight, edema, increase Furosemide to 40mg, for now take 20mg daily with Potassium. F/u 1 month. [id number] Cha Jones DO [facility] ([facility]) [address] [place] [address] [phone] 5 12/28/2023 10:19:43 12/28/2023 18:01:00 Hypokalemia 98562231 E87.6 12/28/23: pt has decreased KCL to 10meq daily. will repeat labs today 4- repeat lab with K+ 3.1, counseled take Potassium 20meq daily.11/16- Reviewed recent lab, Lasix 40mg daily and Potassium 20meq daily for 5 days. Counseled on use of Potassium when taking Lasix. Essential hypertension 94908298 I10 11/17/23- counseled resume Lisinopril 20mg daily, had stopped it after [facility] hospital stay. 4- stable, continue current tx.06/16/23 - reviewed and discussed BP log, stable, continue current tx. Chronic ki dney disease stage 3B 692151520 N18.32 E26.1 monitoring , CR increased last visit, will repeat labs. counseled Congestive heart failure 19425034 I11.0 12/28/23: cotinue on furosemide and KCL. work on healthy low sodium diet and daily exercise. 11/25/23- Exacerbati on improved at this time. Counseled monitor weight closely, if increased weight, edema, increase Furosemide to 40mg, for now take 20mg daily with Potassium. F/u 1 month. 11/17/23- Advised increase Furosemide from 20mg to 40mg ( 2 tablets daily), resume Potassium, 20meq ( 2 10meq tablets) for 5 days, then resume 1 tablet daily of each. Monitor weight daily at home, let me know if increasing or worsening SOB. F/u next week, repeat lab.Echo per [facility] 11/14/23: Summary and Conclusion : - Left ventricle: Not well visualized . The cavity size is normal. Wall thickness is normal. Global systolic function is vigorous. The estimated ejection fraction is 65-70%. For Epic reporting: the left ventricula r ejection fraction is 68% No diagnostic regional wall motion abnormalit y identified . Interventr icular septum shows abnormal bouncy motion. Diastolic function is indetermin ate. - Right ventricle: The cavity size is normal. Systolic function is normal. Systolic pressure is within the normal range. The RV pressure during systole is 13mm Hg. Active or passive immunization [id number] Z23 Flu vax UTD Dec 2022. Prevnar 20 today. Pain of bi lateral hip joints [id number] 9347906 M25.551 M25.552 pain appears to be from lower back, SI b/l per exam. not hip joints. counseled on exercises and stretching . consider xrays if not improving. [id number] Cha Jones DO [facility] ([facility]) [address] [place] [address] 02/23/2024 09:56:23 02/24/2024 12:36:21 Essential hypertension 77898837 I10 11/17/23- counseled resume Lisinopril 20mg daily, had stopped it after [facility] hospital stay. 4- stable, continue current tx.06/16/23 - reviewed and discussed BP log, stable, continue current tx. Foot ulcer due to type 2 diabetes mellitus 9085578723 100 E11.621 04/22/23- healed, continues seeing Podiatry. Hypercholesterolemia 136 81919 E78.00 Counseled decrease Rosuvastat in from 40mg to 20mg daily d/t liver enzymes. [id number] Cha Jones DO [facility] ([facility]) [address] [place] [address] 03/01/2024 10:16:23 03/02/2024 14:15:42 Hypokalemia 20490195 E87.6 12/28/23: pt has decreased KCL to 10meq daily. will repeat labs today 4- repeat lab with K+ 3.1, counseled take Potassium 20meq daily.11/16- Reviewed recent lab, Lasix 40mg daily and Potassium 20meq daily for 5 days. Counseled on use of Potassium when taking Lasix. Essential hypertension 45448526 I10 03/01/24- Continue current tx, Lisinopril , refill Triamteren e.11/17/23- counseled resume Lisinopril 20mg daily, had stopped it after [facility] hospital stay. 4- stable, continue current tx.06/16/23 - reviewed and discussed BP log, stable, continue current tx. Chronic ki dney disease stage 3B 840613920 N18.32 E26.1 monitoring , reviewed and discussed renal function lab today. Congestive heart failure 55843633 I11.0 12/28/23: continue on furosemide and KCL. work on healthy low sodium diet and daily exercise. 11/25/23- Exacerbati on improved at this time. Counseled monitor weight closely, if increased weight, edema, increase Furosemide to 40mg, for now take 20mg daily with Potassium. F/u 1 month. 11/17/23- Advised increase Furosemide from 20mg to 40mg ( 2 tablets daily), resume Potassium, 20meq ( 2 10meq tablets) for 5 days, then resume 1 tablet daily of each. Monitor weight daily at home, let me know if increasing or worsening SOB. F/u next week, repeat lab.Echo per [facility] 11/14/23: Summary and Conclusion : - Left ventricle: Not well visualized . The cavity size is normal. Wall thickness is normal. Global systolic function is vigorous. The estimated ejection fraction is 65-70%. For Epic reporting: the left ventricula r ejection fraction is 68% No diagnostic regional wall motion abnormalit y identified . Interventr icular septum shows abnormal bouncy motion. Diastolic function is indetermin ate. - Right ventricle: The cavity size is normal. Systolic function is normal. Systolic pressure is within the normal range. The RV pressure during systole is 13mm Hg. Gastroesop hageal reflux disease 168313906 K21.9 Stable, refill Pantoprazo le. Type 2 ciro betes mellitus 41508080 E11.69 E11.42 E11.22 03/01/24- Reviewed and discussed A1c, counseled on diet, exercise. Continue current tx, Glipizide, Lantus.10/22 10/13- A1c 7.4 yesterday, 11/16/23, up from 7.1 on 07/20/23, advised resume DM meds, was taken off these during [facility] stay. Counseled on diet, exercise.- Reviewed CGM readings, counseled on diet, starting some exercise, continue current tx. F/u 2 months, labs prior.- Tolerating CGM, feels this is helping with glucose control, counseled on diet, exercise, decrease sugar in diet. Continue Lantus, Glipizide. F/u 2 months. Repeat lab in 4 months.06/22 07/14- Running 200's all day. Counseled increase Lantus from 35u BID to 38u BID, keep appt in one week on 07/22/23. Consider changing Glipizide to IR instead of ER.06/16/23 - Reviewed and discussed glucose log, improved until he started Prednisone , expect to come back down after Prednisone , continue current tx. Will try CGM sample today, Dexcom, insurance won't cover Kalani. [id number] JACQUI STRATTON [facility] ([facility]) [address] [place] [address] [phone] 5 05/25/2024 10:34:49 05/25/2024 12:40:56 Cerebrovascular accident 126794540 I63.9 Recent hospitaliz ation. [id number] Cha Jones DO [facility] ([facility]) [address] [place] [address] [phone] 5 06/02/2024 09:35:34 06/03/2024 13:12:00 CVA - cerebrovascular accident due to cerebral artery occlusion 721539323 I63.50 occurred 05/25/2024: with residual RUE and LLE weakness and mild to moderate dysarthria . Had ECHO and Carotid US in hospital.c ontinue on Xarelto and increased rosuvastat in. will add plavix for the next few wks.keep f/u neurology. Will order ST with MBS. Abnormal g ait due to muscle weakness 556720791 M62.81 s/p CVA that occurred 05/25/2024: with residual RUE and LLE weakness and mild to moderate dysarthria .contine PT and OT, order for walker. 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 will get MBS and ST. counseled [id number] Cha Jones DO [facility] ([facility]) [address] [place] [address] [phone] 5 06/21/2024 08:40:51 06/21/2024 14:05:57 Hypokalemia 41303308 E87.6 07/04/24: reviewed labs, stable.12/28/23: pt has decreased KCL to 10meq daily. will repeat labs today 4- repeat lab with K+ 3.1, counseled take Potassium 20meq daily.11/16- Reviewed recent lab, Lasix 40mg daily and Potassium 20meq daily for 5 days. Counseled on use of Potassium when taking Lasix. Atrial fibrillation 4943 6004 I48.91 Continue Xarelto and Carvedilol , following with Cardiology . CVA - cere brovascular accident due to cerebral artery occlusion 913808220 I63.50 occurred 05/25/2024: with residual RUE and LLE weakness and mild to moderate dysarthria . Had ECHO and Carotid US in hospital.c ontinue on Xarelto and increased rosuvastat in. will add plavix for the next few wks.keep f/u neurology. Will order ST with MBS. Right barlow tid artery stenosis [id number] 08166 I65.21 s/p endovascul ar stent may 2024 after 2nd CVA. Performed at [facility] donta ng well Chronic ki dney disease stage 3B 950524617 N18.32 E26.1 monitoring , reviewed and discussed renal function lab today. Essential hypertension 60115781 I10 06/21/24: continue lisinopril , hydralazin e, carvedilol and diazide.- Continue current tx, Lisinopril , refill Triamteren e.11/17/23- counseled resume Lisinopril 20mg daily, had stopped it after [facility] stay. 4- stable, continue current tx.06/16/23 - reviewed and discussed BP log, stable, continue current tx. Type 2 ciro betes mellitus 58131033 E11.69 E11.42 E11.22 03/01/24- Reviewed and discussed A1c, counseled on diet, exercise. Continue current tx, Glipizide, Lantus.10/22 10/13- A1c 7.4 yesterday, 11/16/23, up from 7.1 on 07/20/23, advised resume DM meds, was taken off these during [facility] stay. Counseled on diet, exercise.- Reviewed CGM readings, counseled on diet, starting some exercise, continue current tx. F/u 2 months, labs prior.- Tolerating CGM, feels this is helping with glucose control, counseled on diet, exercise, decrease sugar in diet. Continue Lantus, Glipizide. F/u 2 months. Repeat lab in 4 months.06/22 07/14- Running 200's all day. Counseled increase Lantus from 35u BID to 38u BID, keep appt in one week on 07/22/23. Consider changing Glipizide to IR instead of ER.06/16/23 - Reviewed and discussed glucose log, improved until he started Prednisone , expect to come back down after Prednisone , continue current tx. Will try CGM sample today, [employer], insurance won't cover Kalani. Gastroesop hageal reflux disease 539100403 K21.9 06/21/24: worsening, will continue Pantoprazo le. will get MBS. 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 Chronic bronchitis 30967 004 J42 Congestive heart failure 81569895 I11.0 06/21/24: reviewed records as below. continue on furosemide and KCL. work on healthy low sodium diet and daily exercise.1 : continue on furosemide and KCL. work on healthy low sodium diet and daily exercise. 11/25/23- Exacerbati on improved at this time. Counseled monitor weight closely, if increased weight, edema, increase Furosemide to 40mg, for now take 20mg daily with Potassium. F/u 1 month. 11/17/23- Advised increase Furosemide from 20mg to 40mg ( 2 tablets daily), resume Potassium, 20meq ( 2 10meq tablets) for 5 days, then resume 1 tablet daily of each. Monitor weight daily at home, let me know if increasing or worsening SOB. F/u next week, repeat lab.Echo per [facility] 11/14/23: Summary and Conclusion : - Left ventricle: Not well visualized . The cavity size is normal. Wall thickness is normal. Global systolic function is vigorous. The estimated ejection fraction is 65-70%. For Epic reporting: the left ventricula r ejection fraction is 68% No diagnostic regional wall motion abnormalit y identified . Interventr icular septum shows abnormal bouncy motion. Diastolic function is indetermin ate. - Right ventricle: The cavity size is normal. Systolic function is normal. Systolic pressure is within the normal range. The RV pressure during systole is 13mm Hg. Foot ulcer due to type 2 diabetes mellitus 2958910812 100 E11.621 healed, continues seeing Podiatry. Hypercholesterolemia 136 91376 E78.00 conitnue Rosuvastat in 40mg. will monitor LFTs. Age relate d macular degeneration 996447914 H35.3290 Continue care with Ophthalmol ogist. [id number] Jones DO [facility] [facility] ([facility]) [address] [place] [address] 07/04/2024 10:41:26 07/04/2024 12:24:48 Atrial fibrillation [id number] I48.91 Continue Xarelto and Carvedilol , following with Cardiology . CVA - cere brovascular accident due to cerebral artery occlusion [id number] I63.50 occurred 05/25/2024: with residual RUE and LLE weakness and mild to moderate dysarthria . Had ECHO and Carotid US in hospital. MBS and ST pending.co ntinue on Xarelto and increased rosuvastat in and plavix.uzma p f/u neurology. Type 2 ciro betes mellitus [id number] E11.69 E11.42 E11.22 07/04/24: some low glucose, will decrease lantus to 20u BID. monitor closely. f/u 1 mt. sooner with problems.1 05/02/23- Reviewed and discussed A1c, counseled on diet, exercise. Continue current tx, Glipizide, Lantus.10/22 10/13- A1c 7.4 yesterday, 11/16/23, up from 7.1 on 07/20/23, advised resume DM meds, was taken off these during [facility] stay. Counseled on diet, exercise.- Reviewed CGM readings, counseled on diet, starting some exercise, continue current tx. F/u 2 months, labs prior.- Tolerating CGM, feels this is helping with glucose control, counseled on diet, exercise, decrease sugar in diet. Continue Lantus, Glipizide. F/u 2 months. Repeat lab in 4 months.06/22 07/14- Running 200's all day. Counseled increase Lantus from 35u BID to 38u BID, keep appt in one week on 07/22/23. Consider changing Glipizide to IR instead of ER.06/16/23 - Reviewed and discussed glucose log, improved until he started Prednisone , expect to come back down after Prednisone , continue current tx. Will try CGM sample today, Dexcom, insurance won't cover Kalani. Primary bi liary cholangitis [id number] K74.3 DX from Miri MENDOZA NP, 06/2024 with elevated Alk phos with + mitochondi ra M2 ab and JACQUE. started on Ursodiol. I reviewed records. continue urrsodiol. will monitor LFTs. counseled pt. [id number] Cha Jones DO [facility] ([facility]) [address] [place] [address] 07/20/2024 16:27:28 07/25/2024 12:44:51 CVA - cerebrovascular accident due to cerebral artery occlusion [id number] I63.50 07/20/24: Discussed MBS results, continue seeing ST, working on swallowing . occurred 05/25/2024: with residual RUE and LLE weakness and mild to moderate dysarthria .continue on Xarelto and increased rosuvastat in and plavix.uzma p f/u neurology. Difficulty sleeping [id number] G47.9 07/20/24: Counseled likely d/t increased stress and anxiousnes s r/t current state of health, will start Escitalopr am. Counseled on diagnosis, treatment options including medication s and possible side effects. Type 2 ciro betes mellitus [id number] E11.69 E11.42 E11.22 07/20/24: Reviewed and discussed recent A1c, 6.9, down from 7.0. Continue current tx, Lantus 20u BID. 5: some low glucose, will decrease lantus to 20u BID. monitor closely. f/u 1 mt. sooner with problems.1 05/02/23- Reviewed and discussed A1c, counseled on diet, exercise. Continue current tx, Glipizide, Lantus.10/22 10/13- A1c 7.4 yesterday, 11/16/23, up from 7.1 on 07/20/23, advised resume DM meds, was taken off these during [facility] stay. Counseled on diet, exercise.- Reviewed CGM readings, counseled on diet, starting some exercise, continue current tx. F/u 2 months, labs prior.- Tolerating CGM, feels this is helping with glucose control, counseled on diet, exercise, decrease sugar in diet. Continue Lantus, Glipizide. F/u 2 months. Repeat lab in 4 months.06/22 07/14- Running 200's all day. Counseled increase Lantus from 35u BID to 38u BID, keep appt in one week on 07/22/23. Consider changing Glipizide to IR instead of ER.06/16/23 - Reviewed and discussed glucose log, improved until he started Prednisone , expect to come back down after Prednisone , continue current tx. Will try CGM sample today, Dexcom, insurance won't cover Kalani. 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 [id number] 53487 I69.322 Closed fra cture of hip [id number] S72.001S [id number] Juancarlos Lassiter DO [facility] ([facility]) [address] [place] [phone] 09/05/2024 13:24:33 09/12/2024 17:20:38 Bilateral lower limb edema [id number] R60.0 [id number] Juancarlos Lassiter DO [facility]) [address] [place] [phone] 09/15/2024 07:56:39 09/20/2024 14:25:30 Edema of lower extremity [id number] R60.0 [id number] Juancarlos Lassiter DO [facility] ([facility]) [address] [place] [phone] 09/22/2024 08:02:00 09/27/2024 08:13:45 Edema of lower extremity [id number] R60.0 Health Concerns Section Related Observation LastModified by Organization Detai ls LastModified Time None Recorded Concern Status LastModified by Organization Details LastModified Time None Recorded Advance Directives Directive None Recorded Payers Insurance Date Sequence Insurance Name Policy Number Policy Mc Covered Member ID Mc Member ID Guarantor Name 09/27/2024 2 [employer] - MEDICARE SELECT - PLAN F (MEDICARE SUPPLEMENT) Andrés Dumont [id number] Andrés Dumont 09/21/2024 1 [place] Andrés Dumont [id number] Andrés Dumont 06/18/2022 2 [employer] (INDEMNITY) Andrés Dumont [id number] Andrés Dumont 09/21/2024 [place] - [place] A - [facility] (MEDICARE) Andrés Dumont [id number] Andrés Dumont Notes Date Note Type Note Provider Name and Address Organization Details Recorded Time 5 text/html HypertensionReported bypatient.Severity:Grade 1 (130-139/80-89) Duration:has noted for years Alleviating Factors:medication 2 week f/udoing well, hemoglobin improving. Juancarlos Lassiter DO [address] [place] [address], [phone], [facility] 08/23/2024 15:23:32 5 text/html HypertensionReported bypatient.Severity:Grade 1 (130-139/80-89) Duration:has noted for years Alleviating Factors:medication staff reports increased edema, progressively getting worse. Juancarlos Lassiter DO [address] [place] [address], [phone], [facility] 09/12/2024 15:50:47 5 text/html HypertensionReported bypatient.Severity:Grade 1 (130-139/80-89) Duration:has noted for years Alleviating Factors:medication staff reports increased edema, progressively getting worse. Juancarlos Lassiter DO [address] [place] [address], [phone], [facility] 09/19/2024 18:08:33 5 text/html HypertensionReported bypatient.Severity:Grade 1 (130-139/80-89) Duration:has noted for years Alleviating Factors:medication f/u on edmea. Juancarlos Lassiter DO [address] [place] [address], [phone], [facility] 09/26/2024 17:17:33
[2024-09-30 23:50] VITALS: BP 139/69; PULSE 83; RESP 18; TEMP 37.1; O2SAT 97; BMI 34.5
--- NOTE | 2024-09-30 23:56 | XRR_ITS ---
PROCEDURE INFORMATION: Exam: XR Chest Exam date and time: 09/30/2024 11:57 PM Age: 79 years old Clinical indication: Shortness of breath; Additional info: Short of breath TECHNIQUE: Imaging protocol: Radiologic exam of the chest. Views: 1 view. COMPARISON: CR XR chest 1V [id number] 07/28/2024 6:44 PM FINDINGS: Lungs: Interval development of patchy alveolar airspace disease in the right middle lobe and right lower lobe. Findings are suspicious for pneumonia. Pleural spaces: No pleural effusion. No pneumothorax. Heart/Mediastinum: Stable marked enlargement of the cardiac silhouette. Mediastinal contours are unremarkable. Vasculature: Stable vascular calcifications in the aorta. Bones/joints: Unremarkable for age. XR/XR chest 1V portable [id number] IMPRESSION: 1. Interval development of patchy alveolar airspace disease in the right middle lobe and right lower lobe. Findings are suspicious for pneumonia. Recommend followup chest imaging to insure resolution of these findings. 2. Incidental/nonacute findings are listed in the report.
--- NOTE | 2024-09-30 23:58 | W.ED.SOB ---
HPI - SOB/Dyspnea General: Chief Complaint: Shortness of Breath/Dyspnea Stated Complaint: SOB , Fever Time Seen by Provider: 09/30/24 23:47 History of Present Illness: HPI Narrative: Patient is 79-year-old gentleman with history of A-fib on Xarelto, CVA on Plavix, that presents to the emergency room with shortness of breath and wheezes. This has been occurring x 2 days. Patient is at [facility] for rehab since 08/08 for right hip surgery. Patient denies any sick contact however he is in rehab. Associated symptoms: Deny abdominal pain, chest pain, fever(s), nausea, palpitations or vomiting Related Data Home Medications ?Medication ?Instructions ?Recorded ?Confirmed pantoprazole 40 mg tablet,delayed 40 mg PO BID 11/19/20 09/27/24 release fluticasone propionate 50 2 spray intranasal DAILY PRN Nasal 09/18/21 09/27/24 mcg/actuation nasal Congestion spray,suspension glipizide 10 mg tablet, extended 10 mg PO DAILY 09/18/21 09/27/24 release 24 hr triamterene 75 1 tab PO DAILY 12/18/21 09/27/24 mg-hydrochlorothiazide 50 mg tablet furosemide 20 mg tablet (Lasix) 20 mg PO DAILY PRN Edema 11/16/23 09/27/24 multivitamin (Multiple Vitamins 1 tab PO DAILY 03/28/24 09/27/24 tablet) insulin glargine 100 unit/mL (3 35 unit SUBCUT BID 05/17/24 09/27/24 mL) subcutaneous pen (Lantus Solostar U-100 Insulin) lisinopril 20 mg tablet 20 mg PO DAILY 05/17/24 09/27/24 potassium chloride 10 mEq 10 meq PO BID 06/10/24 09/27/24 tablet,extended release albuterol sulfate 90 mcg/actuation 2 puff inhalation .Q4-6H 07/23/24 09/27/24 aerosol inhaler clopidogrel 75 mg tablet 75 mg PO DAILY 07/23/24 09/27/24 escitalopram oxalate 10 mg tablet 10 mg PO QPM 07/23/24 09/27/24 ursodiol 300 mg capsule 1,500 mg PO DAILY 07/23/24 09/27/24 Previous Rx's ?Medication ?Instructions ?Recorded carvedilol 12.5 mg tablet 12.5 mg PO BID #180 tabs 03/28/24 rosuvastatin 40 mg tablet 40 mg PO DAILY #30 tabs 05/18/24 rivaroxaban 20 mg tablet (Xarelto) See Rx Instructions .Route 07/18/24 .COMPLEX #30 tabs tamsulosin 0.4 mg capsule (Flomax) 0.4 mg PO DAILY #30 caps 08/21/24 doxycycline hyclate 100 mg capsule 100 mg PO BID 10 days #20 caps 10/01/24 methylprednisolone 4 mg tablets in See Rx Instructions PO .COMPLEX 10/01/24 a dose pack (Medrol (Derrell)) #21 ea Allergies Allergy/AdvReac Type Severity Reaction Status Date / Time lovastatin Allergy RASH Verified 09/27/24 13:12 blood Allergy Unknown Jebrennen's Uncoded 09/27/24 13:12 witness Review of Systems General: Reports: 10 or more systems reviewed and unremarkable except in HPI and below Const: Denies: fever(s) or chills Eyes: Denies: change in vision or blurry vision ENMT: Denies: throat pain Card: Denies: chest pain or palpitations Resp: Reports: dyspnea, non-productive cough and wheezing GI: Denies: abdominal pain, nausea or vomiting : Denies: flank pain or difficulty urinating Musc: Denies: neck pain or back pain Skin/Breast: Denies: rash or pruritus Neuro: Denies: headache(s) or numbness in extremities Psych: Denies: anxiety or depression PFSH ED PFSH: Medical History (Updated 10/01/24 @ 02:06 by ANY Schumacher) Hypertension Anticoagulation adequate with anticoagulant therapy Atrial fibrillation with controlled ventricular rate BPH (benign prostatic hyperplasia) Mass of right kidney Diabetes mellitus Acute cholecystitis Callus of foot Chronic ulcer of great toe of right foot, limited to breakdown of skin Hammertoe Peripheral arterial disease Diabetic peripheral neuropathy associated with type 2 diabetes mellitus Diabetes mellitus GERD (gastroesophageal reflux disease) Venous insufficiency Prostatitis, acute Acute cystitis with hematuria Surgical History Hx of cholecystectomy Status post right inguinal hernia repair Status post colonoscopy (12/13/20) descending colon polyp H/O esophagogastroduodenoscopy (12/13/20) normal Hx of tonsillectomy Family History Mother , AT AGE 73 Cancer COLON Father , AT AGE 50 Diabetes Social History Smoking and tobacco/nicotine status: former use of tobacco/nicotine (quit 1974) Alcohol intake: current Alcohol intake frequency: holidays/special occasions only Marital status: Current occupational status: retired Physical Exam Const: COMMON NORMALS: no acute distress, average body habitus and patient oriented x3 HENMT: COMMON NORMALS: normocephalic and atraumatic HEAD & SCALP: normocephalic and atraumatic Lymph: LYMPHATIC: no lymphadenopathy noted Chest: COMMONS NORMALS: normal inspection of the chest and normal palpation of entire chest wall Resp: COMMON NORMALS: normal respiratory effort and No retractions AUSCULTATION: wheezes expiratory wheezes and lower bilaterally Cardio: COMMON NORMALS: regular rate, regular rhythm and No murmurs present (Cardio) RATE: regular rate RHYTHM: regular rhythm GI: COMMON NORMALS: Normal to inspection, nondistended, normoactive bowel sounds present, Soft to palpation and non-tender PALPATION: Yes Soft to palpation : COMMON NORMALS: Yes no CVA tenderness BLADDER/KIDNEY EXAM: Yes no CVA tenderness Back/Pelvis: COMMON NORMALS: no CVA tenderness Extremity: COMMON NORMALS: normal to inspection, full ROM and capillary refill normal Neuro: COMMON NORMALS: patient oriented x3 and CN's II-XII intact bilaterally Psych: COMMON NORMALS: mental status grossly normal Skin: COMMON NORMALS: no rashes or lesions noted and no wounds GENERAL SKIN EXAM: no rashes or lesions noted Course Vital Signs: Vital signs: Vital Signs Temperature 98.8 F 09/30/24 23:50 Pulse Rate 78 10/01/24 02:03 Respiratory Rate 16 10/01/24 02:03 Blood Pressure 139/63 10/01/24 02:03 Pulse Oximetry 96 10/01/24 02:03 Oxygen Delivery Me thod Room Air 10/01/24 02:03 MDM - SOB/Dyspnea Medical Decision Making Patient is a 79-year-old gentleman with shortness of breath, and wheezing. He is chronically on Xarelto for A-fib and clopidogrel for CVA. He has history of DM, and HTN. Is currently in rehab for right knee replacement. Medical Records I reviewed the patient's medical records. Lab Data 09/30/24 23:27 09/30/24 23:27 Labs/Radiology: Radiology Impressions Chest X-Ray 09/30/24 23:56 IMPRESSION: 1. Interval development of patchy alveolar airspace disease in the right middle lobe and right lower lobe. Findings are suspicious for pneumonia. Recommend followup chest imaging to insure resolution of these findings. 2. Incidental/nonacute findings are listed in the report. Laboratory Results WBC 9.75 10^3/uL (3.29-11.43) 09/30/24 23: RBC 3.56 10^6/uL (3.85-5.65) L 09/30/24 23: Hgb 10.80 g/dL (11.27-16.99) L 09/30/24 23: Hct 34.5 % (37-53) L 09/30/24 23: MCV 96.9 fl (82-101) 09/30/24 23: MCH 30.3 pg (27-33) 09/30/24 23: MCHC 31.3 g/dL (30-55) 09/30/24 23: RDW 16.2 % (12.1-15.1) H 09/30/24 23: Plt Count 352 10^3/cmm (157-399) 09/30/24 23:27 MPV 9.6 fL (7.4-10.4) 09/30/24 23: Neut % (Auto) 83.4 % 09/30/24 23: Lymph % (Auto) 3.8 % 09/30/24 23:27 Calvert % (Auto) 9.2 % 09/30/24 23:27 Eos % (Auto) 2.9 % 09/30/24 23: Baso % (Auto) 0.2 % 09/30/24 23:27 Neut # (Auto) 8.13 10^3/uL (1.8-7.7) H 09/30/24 23:27 Lymph # (Auto) 0.4 10^3/uL (0.8-4.8) L 09/30/24 23:27 Calvert # (Auto) 0.9 10^3/uL (0.2-0.9) 09/30/24 23:27 Eos # (Auto) 0.3 10^3/uL (0.0-0.8) 09/30/24 23:27 Baso # (Auto) 0.0 10^3/uL (0.0-0.1) 09/30/24 23:27 Nucleated RBC % (auto) 0 % 09/30/24 23: Nucleated RBCs # 0.0 /100WBC 09/30/24 23:27 PT 28.30 SECONDS (12.1-14.9) H 09/30/24 23:27 INR 2.48 (0.8-1.2) H 09/30/24 23:27 Sodium 138 mmol/L (136-145) 09/30/24 23:27 Potassium 3.3 mmol/L (3.5-5.1) L 09/30/24 23:27 Chloride 99 mmol/L (98-107) 09/30/24 23:27 Carbon Dioxide 27 mmol/L (22-29) 09/30/24 23:27 Anion Gap 15.3 (5-19) 09/30/24 23:27 BUN 18 mg/dL (8-23) 09/30/24 23:27 Creatinine 1.2 mg/dL (0.7-1.2) 09/30/24 23:27 GFR Calculation Not Reportable 09/30/24 23:27 Glucose 159 mg/dL (65-115) H 09/30/24 23:27 Calculated Osmolality 291 mOsm/kg (285-295) 09/30/24 23:27 Calcium 8.4 mg/dL (8.5-10.5) L 09/30/24 23:27 Total Bilirubin 0.6 mg/dL (0.15-1.2) 09/30/24 23:27 AST 18 U/L (0-40) 09/30/24 23:27 ALT 11 U/L (0-41) 09/30/24 23:27 Alkaline Phosphatase 194 U/L (40-130) H 09/30/24 23:27 NT-Pro-B Natriuret Pep 2720 pg/mL (0-450) H 09/30/24 23:27 Total Protein 6.7 g/dL (6.6-8.7) 09/30/24 23:27 Albumin 2.8 g/dL (3.5-5.2) L 09/30/24 23:27 Globulin 3.9 g/dL (1.3-4.6) 09/30/24 23:27 Procalcitonin 0.19 ng/mL (0-0.5) 09/30/24 23:27 Influenza A (PCR) Negative (Negative) 10/01/24 00:08 Influenza Type B (PCR) Negative (Negative) 10/01/24 00:08 RSV (PCR) Negative (Negative) 10/01/24 00:08 SARS-CoV-2 (PCR) Negative (Negative) 10/01/24 00:08 All radiology interpretation(s) finalized by discharge Discharge Plan Discharge Patient Disposition: Home Clinical Impression: Other viral pneumonia RAD (reactive airway disease) with wheezing Qualifiers: Asthma severity: mild Asthma persistence: intermittent Asthma complication type: with acute exacerbation Qualified Code(s): J45.21 - Mild intermittent asthma with (acute) exacerbation Condition: Stable Prescriptions: New doxycycline hyclate 100 mg capsule 100 mg PO BID 10 Days Qty: 20 0RF methylprednisolone [Medrol (Derrell)] 4 mg tablets,dose pack See Rx Instructions .ROUTE .COMPLEX Qty: 21 0RF Rx Instructions: for 6 days No Action pantoprazole 40 mg tablet,delayed release (DR/EC) 40 mg PO BID triamterene-hydrochlorothiazid 75-50 mg tablet 1 tab PO DAILY furosemide [Lasix] 20 mg tablet 20 mg PO DAILY PRN (Reason: Edema) multivitamin [Multiple Vitamins] Tablet 1 tab PO DAILY carvedilol 12.5 mg tablet 12.5 mg PO BID Qty: 180 3RF Rx Instructions: must administer with a meal/food Xarelto 20 mg tablet See Rx Instructions .ROUTE .COMPLEX Qty: 30 0RF Dose Instruction: TAKE 1 TABLET BY MOUTH DAILY; must administer with evening meal Rx Instructions: TAKE 1 TABLET BY MOUTH DAILY; must administer with evening meal glipizide 10 mg tablet extended release 24hr 10 mg PO DAILY fluticasone propionate 50 mcg/actuation [place],Suspension 2 spray INTRANASAL DAILY PRN (Reason: Nasal Congestion) Rx Instructions: administer into each nostril lisinopril 20 mg tablet 20 mg PO DAILY insulin glargine [Lantus Solostar U-100 Insulin] 100 unit/mL (3 mL) insulin pen 35 unit SUBCUT BID rosuvastatin 40 mg tablet 40 mg PO DAILY Qty: 30 0RF potassium chloride 10 mEq tablet extended release 10 meq PO BID clopidogrel 75 mg tablet 75 mg PO DAILY ursodiol 300 mg capsule 1,500 mg PO DAILY Rx Instructions: TAKE 5 CAPSULES BY MOUTH ONCE DAILY IN 2-3 DIVIDED DOSES albuterol sulfate 90 mcg/actuation HFA aerosol inhaler 2 puff INHALATION .Q4-6H escitalopram oxalate 10 mg tablet 10 mg PO QPM tamsulosin [Flomax] 0.4 mg capsule 0.4 mg PO DAILY Qty: 30 0RF Discharge Orders: Discharge ED (Routine); Ordered 10/01/24 Ordered By: Yahaira Melendez Referrals: Humberto Griggs DO [Primary Care Provider, Family Practice] Discharge Diet: Low Salt Discharge Activity: Resume usual activity Patient Instructions: Acute Bronchitis (ED), Wheezing (ED), Patient Portal & Ann Instructions Activity Restrictions/Additional Instructions: Hold Xarelto tomorrow a.m. and p.m., resume Thursday a.m. Have facility doctor obtain an INR. Current INR was 2.3. Facility physician may elect to hold Xarelto on Thursday as well. Take medication as directed. Take a probiotic or active culture yogurt daily to avoid infectious diarrhea. Follow-up with your doctor early next week. You will need repeat chest x-ray. Return to ED for worsening shortness of breath. Print Language: Albanian Coding Level of Care Code ED Loader Operator/Ground Leader for Lois Greco
[2024-10-01] MEDS: methylPREDNISolone sod succ 125 mg/2 mL INJ 80 MG IVP (00:18)
[2024-10-01 00:31] LABS: Hematocrit 34.5 % (37-53); Hemoglobin 10.80 g/dL (11.27-16.99); Mean Corpuscular HGB Conc 31.3 g/dL (30-55); Mean Corpuscular Hemoglobin 30.3 pg (27-33); Mean Corpuscular Volume 96.9 fl (82-101); Nucleated Red Blood Cells % 0 %; Platelet Count 352 10^3/cmm (157-399); Red Blood Count 3.56 10^6/uL (3.85-5.65); White Blood Count 9.75 10^3/uL (3.29-11.43)
[2024-10-01 00:39] LABS: INR 2.48 (0.8-1.2); Prothrombin Time 28.30 SECONDS (12.1-14.9)
[2024-10-01 00:52] LABS: NT Pro B Type Natriuretic Pept 2720 pg/mL (0-450); Procalcitonin 0.19 ng/mL (0-0.5)
[2024-10-01 00:53] VITALS: PULSE 81; RESP 18; O2SAT 93
[2024-10-01 01:03] LABS: Alanine Aminotransferase 11 U/L (0-41); Albumin Level 2.8 g/dL (3.5-5.2); Alkaline Phosphatase 194 U/L (40-130); Anion Gap 15.3 (5-19); Aspartate Amino Transferase 18 U/L (0-40); Blood Urea Nitrogen 18 mg/dL (8-23); Calcium 8.4 mg/dL (8.5-10.5); Carbon Dioxide 27 mmol/L (22-29); Chloride 99 mmol/L (98-107); Creatinine Clr Calc Pharmacy 70.4148; Globulin 3.9 g/dL (1.3-4.6); Glucose 159 mg/dL (65-115); Osmolality Calculated 291 mOsm/kg (285-295); Potassium 3.3 mmol/L (3.5-5.1); Sodium 138 mmol/L (136-145); Total Protein 6.7 g/dL (6.6-8.7)
[2024-10-01 01:07] LABS: Respiratory Syncytial Virus Ce NEGATIVE (Negative); SARS-CoV-2 PCR NEGATIVE (Negative)
[2024-10-01] MEDS: cefTRIAXone 2,000 mg SDV 2000 MG IVP (02:02)
[2024-10-01 02:03] VITALS: BP 139/63; PULSE 78; RESP 16; O2SAT 96
[2024-10-01 02:52] VITALS: BP 134/69; PULSE 74; RESP 16; O2SAT 95
== END 2024-10-01 02:54 | disposition home or self-care (01) ==
PROVIDERS: Emergency Provider Physician Assistant; PCP Electrodiagnostic Medicine
DX: J12.9 Viral pneumonia, unspecified (principal); J45.21 Mild intermittent asthma with (acute) exacerbation; Z79.899 Other long term (current) drug therapy; Z79.84 Long term (current) use of oral hypoglycemic drugs; Z79.02 Long term (current) use of antithrombotics/antiplatelets; Z88.8 Allergy status to other drugs, medicaments and biological substances; I10 Essential (primary) hypertension; E11.40 Type 2 diabetes mellitus with diabetic neuropathy, unspecified; K21.9 Gastro-esophageal reflux disease without esophagitis; Z87.891 Personal history of nicotine dependence; Z11.52 Encounter for screening for COVID-19; Z79.01 Long term (current) use of anticoagulants; Z86.73 Personal history of transient ischemic attack (TIA), and cerebral infarction without residual deficits
CPT/HCPCS: 36415; 71045; 80053; 83880; 84145; 85025; 85610; 87637; 96361; 96374; 96375; 99284; J0696; J2919; J7030; J9999

== ENCOUNTER → 2024-10-17 08:54 | Outpatient (BNVA) | payer MEDICARE, OTHER, SELFPAY | PROVIDERS: PCP Electrodiagnostic Medicine; Visit Provider Orthopaedic Surgery | DX: M25.551 Pain in right hip (principal); S72.001D Fracture of unspecified part of neck of right femur, subsequent encounter for closed fracture with routine healing; X58.XXXD Exposure to other specified factors, subsequent encounter | CPT/HCPCS: 73502; 99024 ==

== ENCOUNTER → 2024-11-17 09:07 | Outpatient (BNVA) | payer MEDICARE, OTHER, SELFPAY | PROVIDERS: PCP Electrodiagnostic Medicine; Visit Provider Orthopaedic Surgery | DX: Z98.890 Other specified postprocedural states (principal) | CPT/HCPCS: 73502; 99213 ==

== ENCOUNTER → 2024-12-07 12:59 | Outpatient (BNVA) | payer MEDICARE, OTHER, SELFPAY | PROVIDERS: PCP Electrodiagnostic Medicine; Visit Provider Thoracic Surgery (Cardiothoracic Vascular Surgery) | DX: E11.52 Type 2 diabetes mellitus with diabetic peripheral angiopathy with gangrene (principal); E11.621 Type 2 diabetes mellitus with foot ulcer; L97.521 Non-pressure chronic ulcer of other part of left foot limited to breakdown of skin; L97.512 Non-pressure chronic ulcer of other part of right foot with fat layer exposed | CPT/HCPCS: 11042; 97597; 99213; J9999 ==

== ENCOUNTER 2024-12-16 09:51 | Emergency (ER) | payer MEDICARE, OTHER, SELFPAY ==
[2024-12-16 09:54] VITALS: BP 170/69; PULSE 60; RESP 17; TEMP 36.4; O2SAT 93; BMI 33.3
--- NOTE | 2024-12-16 09:55 | XR_ITS ---
WS: [id number] Exam: XR chest 1V portable [id number] Date/Time of Exam: 12/16/2024 10:38 AM Reason For Exam: Shortness of breath Comparison 10/01/2024. The lungs are fully expanded and clear. Heart size top limits normal. No pleural effusions. The mediastinum is normal in contour. Bony structures are intact. Moderate degenerative change of the RIGHT shoulder with high riding humeral head. XR/XR chest 1V portable [id number] IMPRESSION: 1. No acute cardiopulmonary finding.
--- OUTSIDE RECORDS SUMMARY | 2024-12-16 09:56 | XMS_ITS | Clinical Summary ---
Author Organization [facility] Facility Address [address] [place] [address] Care Team Providers Care Final Finisher Name Role Phone Unavailable Primary Care Provider Unavailabl e Allergies Active Allergy Reactions Criticality Noted Date Comments Lovastatin Other (see comments) Low 01/13/2023 Other Reaction(s): Not available Statins Itching Low 12/30/2022 Medications ursodiol (ACTIGALL) 300 MG capsule TAKE 5 CAPSULES BY MOUTH ONCE DAILY IN 2-3 DIVIDED DOSES Active rosuvastatin (CRESTOR) 40 MG tablet Take 40 mg by mouth in the morning. Active rivaroxaban (Xarelto) 20 MG tablet Take 20 mg by mouth 1 (one) time each day with breakfast 06/17/19 25 Active potassium chloride 10 MEQ CR tablet Take 10 mEq by mouth in the morning and 10 mEq in the evening. 11/17/19 24 Active pantoprazole (PROTONIX) 40 MG EC tablet Take 40 mg by mouth in the morning. Active Multiple Vitamin (Daily Vites) tablet Take 1 tablet by mouth in the morning. Active lisinopril 20 MG tablet Take 20 mg by mouth 1 (one) time each day FOR BLOOD PRESSURE 11/08/19 25 Active insulin glargine (Lantus SoloStar) 100 UNIT/ML injection inject 20 units EVERY MORNING and again at night Active HYDROcodone-ac etaminophen (NORCO) 5-325 MG per tablet Take 1 tablet every 6 hours by oral route as needed for 30 days. 06/17/19 25 Active fluticasone (FLONASE) 50 MCG/ACT nasal spray Administer 2 sprays into each nostril in the morning and 2 sprays in the evening. 11/08/19 22 Active carvedilol (COREG) 12.5 MG tablet Take 12.5 mg by mouth in the morning and 12.5 mg in the evening. Take with meals. Active clopidogrel (PLAVIX) 75 MG tablet Take 75 mg by mouth 1 (one) time each day 06/18/19 25 Active amLODIPine (NORVASC) 10 MG tablet Take 10 mg by mouth 1 (one) time each day Active amiodarone (PACERONE) 200 MG tablet Take 200 mg by mouth in the morning. 08/06/19 25 Active albuterol HFA (PROVENTIL HFA;VENTOLIN HFA) 108 (90 Base) MCG/ACT inhaler Inhale 2 puffs every 4 (four) to 6 (six) hours if needed 06/22/19 25 Active ondansetron (ZOFRAN) 4 MG tablet Take by mouth 11/21/19 25 Active bisacodyl (Dulcolax) 10 MG suppository Insert 10 mg into the rectum 1 (one) time each day Active tamsulosin (Flomax) 0.4 MG 24 hr capsule Take 0.4 mg by mouth 1 (one) time each day Active magnesium hydroxide (MILK OF MAGNESIA) 400 MG/5ML suspension Take by mouth 1 (one) time each day if needed for constipation Active polyethylene glycol (GLYCOLAX) 17 GM/SCOOP powder Take 17 g by mouth 1 (one) time each day Active cetirizine (ZyrTEC) 10 MG chewable tablet Chew 10 mg 1 (one) time each day Active Melatonin 3 MG tablet dispersible Take by mouth Acti ve spironolactone (ALDACTONE) 50 MG tablet Take 50 mg by mouth 1 (one) time each day Active sertraline (ZOLOFT) 100 MG tablet Take 100 mg by mouth 1 (one) time each day Active Insulin Lispro, 1 Unit Dial, (HumaLOG KWIKPEN) 100 UNIT/ML solution pen-injector Inject 10 Units under the skin Active furosemide (LASIX) 20 MG tablet Take 2 tablets (40 mg total) by mouth every night 80mg in am and 40mg in pm 11/23/19 25 Active triamterene-hy droCHLOROthiaz latia (MAXZIDE) 75-50 MG per tablet Take 1 tablet by mouth every morning 2024 Discontinued triamcinolone (KENALOG) 0.5 % ointment APPLY TO AFFECTED ITCHY AREA OF SKIN 2 4 TIMES A DAY UNTIL RESOLVED External; Duration: 3 2024 Discontinued rosuvastatin (CRESTOR) 40 MG tablet Take 40 mg by mouth 1 (one) time each day 2024 Discontinued metoprolol succinate XL (TOPROL-XL) 100 MG 24 hr tablet Take 100 mg by mouth 1 (one) time each day 2024 Discontinued Magnesium 250 MG tablet 1 (one) time each day at the same time 2024 Discontinued losartan (COZAAR) 25 MG tablet Take 25 mg by mouth 1 (one) time each day at the same time 2024 Discontinued(S latia effects) hydrALAZINE 25 MG tablet Take 1 tablet by mouth in the morning and 1 tablet in the evening. 2024 Discontinued glipiZIDE (GLUCOTROL XL) 10 MG 24 hr tablet Take 10 mg by mouth every morning 08/22/19 25 2024 Discontinued furosemide (LASIX) 20 MG tablet Take 20 mg by mouth 1 (one) time each day 2024 Discontinued escitalopram (LEXAPRO) 10 MG tablet Take 10 mg by mouth 1 (one) time each day 07/21/19 25 2024 Discontinued allopurinol (ZYLOPRIM) 100 MG tablet Take 100 mg by mouth 1 (one) time each day 2024 Discontinued Active Problems Problem Noted Date Diagnosed Date Chronic kidney disease stage 3B 11/22/2024 Atrial fibrillation Essential hypertension Diabetes mellitus without me ntion of complication, type II or unspecified type, not stated as uncontrolled Encounters Date Type Department Care Team Description 11/22/2024 10:30 AM CDT Office Visit [facility], [address] [phone] Cassidy Alvarado NP Essential hypertension (Primary Dx); Diabetes mellitus without mention of complication, type II or unspecified type, not stated as uncontrolled (HCC); Longstanding persistent atrial fibrillation (HCC); Chronic kidney disease stage 3B (HCC) 11/22/2024 Documentation Only [facility], [address] [phone] Tess Muir 11/22/2024 Documentation Only [facility] [address] [place] [address] Luisnaomiejc Tess 11/16/2024 Telephone [facility] [address] [place] [address] Sangeetha Pollard MD 11/16/2024 Documentation Only [facility] [address] [place] [address] LuisTess soto 11/11/2024 Telephone [facility] [address] [place] [address] Sangeetha Pollard MD from Last 3 Months Immunizations Immunization Administration Dates Next Due Influenza (IM) Preservative Free 12/28/2023 Influenza, High-dose Seasona l, Quadrivalent, Preservative Free 01/05/2023,01/06/2022 Moderna SARS-COV-2 12/10/2021,,05/30/2020,05/02 Moderna Sars-cov-2 (Covid-19 ) Vaccine, Mrna, Jet Protein 01/16/2023 Pneumococcal Conjugate 04/22/2023 Pneumococcal Conjugate 13-Valent 02/21/2019 Pneumococcal Polysaccharide 04/02/2017 Shingrix 10/30/2021,04/19/2021 Family History Medical History Relation Comments Diabetes Father Relation Status Comments Father Social History Tobacco Use Types Packs/Day Years Used Date Smoking Tobacco: Former Cigarettes Smokeless Tobacco: Never Alcohol Use Standard Drinks/Week Comments Not Currently 0 (1 standard drink = 0.6 oz pur e alcohol) Sex and Gender Information Value Date Recorded Sex Assigned at Not on file Legal Sex Male 10:58 AM EDT Gender Identity Not on file Sexual Orientation Not on file Last Filed Vital Signs Vital Sign Reading Time Taken Comments Blood Pressure 136/62 11/22/2024 10:36 AM CDT Pulse 68 11/22/2024 10:36 AM CDT Temperature - - Respiratory Rate - - Oxygen Saturation - - Inhaled Oxygen Concentration - - Weight 114 kg (251 lb) 11/22/2024 10:36 AM CDT Height 188 cm (6' 2 ) 11/22/2024 10:36 AM CDT Body Mass Index 32.23 11/22/2024 10:36 AM CDT Plan of Treatment Upcoming Encounters Date Type Department Care Team (Late st Contact Info) Description 2025 10:30 AM [employer] COMM[employer] AGENT Office Visit [facility] [address] [place] [phone] Cassidy Alvarado, SPECIAL PROCEDURES NURSE [address] [facility] [address] [place] [address] Health Maintenance Due Date Last Done Comments Hepatitis B Vaccine (1 of 3 - Risk 3-dose series) 2006 Diabetes: Pedal Pulse Checked 08/01/2024 Diabetes: Sensory Foot Exam 08/01/2024 Diabetes: Visual Foot Exam 08/01/2024 Diabetes: Hemoglobin A1C 09/12/2024 06/12/2024 Influenza Vaccine (#1) 2024 , 01/05/2023, 01/06/2022 Diabetes: Ophthalmology Exam 07/12/2025, 11/05/2023, 05/12/2023, Additional history exists Pneumococcal Vaccine: 50+ Years Completed 04/22/2023, 02/21/2019, 04/02/2017 Procedures Procedure Name Priority Date/Time Associated Diagnosis Comments PROTEIN / CREATININE RATIO, URINE Routine 11/18/2024 9:25 AM CDT Acute nontraumatic kidney injury, not otherwise specified (HCC) RENAL FUNCTION PANEL Routine 11/18/2024 9:25 AM CDT Acute nontraumatic kidney injury, not otherwise specified (HCC) PTH, INTACT Routine 11/18/2024 9:25 AM CDT Acute nontraumatic kidney injury, not otherwise specified (HCC) from Last 3 Months Results * Protein / creatinine ratio, urine (11/18/2024 9:25 AM CDT) Creatinine, Urine Random 30 mg/dL PRINT/EXTERNAL (NON-INTERFACE D LABS) Urine Protein/Creatin ine Ratio 713 mg/g creat PRINT/EXTERNAL (NON-INTERFACE D LABS) Protein Urine Random 21.4 mg/dL PRINT/EXTERNAL (NON-INTERFACE D LABS) Urine Urine specimen obtained by clean catch procedure / Unknown 11/18/2024 9:25 AM CDT us Sangeetha Pollard MD LAB URINE ORDERABLES Final Re sult Performing Organization Address [facility] de Phone Number PRINT/EXTERNAL (NON-INTERFACED LABS) * PTH, intact (11/18/2024 9:25 AM CDT) Parathyroid Hormone, Intact 140.8 pg/mL PRINT/BALE TIE MACHINE OPERATOR AL (NON-INTERFACE D LABS) Blood Venous blood / Unknown 11/18/2024 9:25 AM CDT us Sangeetha Pollard MD LAB BLOOD ORDERABLES Final Re sult Performing Organization Address [facility] de Phone Number PRINT/EXTERNAL (NON-INTERFACED LABS) * Renal function panel (11/18/2024 9:25 AM CDT) Glucose 199 mg/dL PRINT/EXTE RNAL (NON-INTERFACE D LABS) BUN 30.5 mg/dL PRINT/EXTE RNAL (NON-INTERFACE D LABS) Creatinine 1.67 mg/dL PRINT/EXT ERNAL (NON-INTERFACE D LABS) Sodium 138 mEq/L PRINT/EXTE RNAL (NON-INTERFACE D LABS) Potassium 4.3 mEq/L PRINT/EXTE RNAL (NON-INTERFACE D LABS) Chloride 101 PRINT/EXTE RNAL (NON-INTERFACE D LABS) Carbon Dioxide 28 mmol/L PRINT /EXTERNAL (NON-INTERFACE D LABS) Calcium 8.2 mg/dL PRINT/EXTE RNAL (NON-INTERFACE D LABS) Phosphorus, Serum 3.8 mg/dL PRINT/EXTERNAL (NON-INTERFACE D LABS) eGFR Non-Afr Kuwaiti 42.5 PRINT/EXTERNAL (NON-INTERFACE D LABS) Blood Venous blood / Unknown 11/18/2024 9:25 AM CDT us Sangeetha Pollard MD LAB BLOOD ORDERABLES Final Re sult PRINT/EXTERNAL (NON-INTERFACED LABS) from Last 3 Months Insurance Medicare Med[employer] [place] [id number]
--- OUTSIDE RECORDS SUMMARY | 2024-12-16 09:56 | XMS_ITS | Clinical Summary ---
Author Organization [facility] Address [address] [place] [address] Care Team Providers Care Swage Tender Name Role Phone Unavailable Primary Care Provider Unavailabl e Allergies Active Allergy Reactions Criticality Noted Date Comments Lovastatin Muscle Pain,Other (S ee Comments) Low 01/13/2023 Qunmatp-Ixp-Rxb Reductase Inhibitors Itching Low 12/30/2022 Medications pantoprazole (PROTONIX) 40 mg Tablet, Delayed Release (E.C.) Take 40 mg by mouth daily. Active rosuvastatin (CRESTOR) 40 mg tablet Take 40 mg by mouth daily. Active fluticasone propionate (FLONASE) 50 mcg/spray [place], Suspension nasal inhaler USE 2 SPRAY(S) IN [...] Encounters Date Type Department Care Team Description 11/16/2024 External Device Data STL ABSTRACTION Provider, Abstract 11/01/2024 External Device Data STL ABSTRACTION Provider, Abstract 11/01/2024 External Device Data STL ABSTRACTION Provider, Abstract 10/26/2024 Telephone [facility] Vascular Surgery [place] [id number] [facility] [address] [place] [address] Mary Herrera, Appointment Needed from Last 3 Months Immunizations Immunization Administration Dates Next Due (PNEUMOVAX 23)(50 YRS UP) PN EUMOCOCCAL POLYSACCHARIDE (PPV23) 0.5 ML, IM 04/02/2017 (PREVNAR 13)(6 WKS UP) PNEUM OCOCCAL CONJUGATE (PCV13) 0.5 ML, IM 02/21/2019 (PREVNAR 20)(6 WKS UP) PNEUM OCOCCAL CONJUGATE VACCINE 20-VALENT (PCV20), POLYSACCHARIDE [id number] CONJUGATE, ADJUVANT 0.5 ML (PF) IM 04/22/2023 [...] 07/31/2024 7:49 PM CDT Plan of Treatment Health Maintenance Due Date Last Done Comments DIABETES ANNUAL FOOT EXAM 1963 DIABETES MICROALBUMIN ANNUAL SCREEN 1963 DTAP/TDAP/TD VACCINES (1 - Tdap) 1965 Traditional Medicare (ACO) A nnual Wellness Visit 1965 RSV VACCINE (60+ or ) (1 - 1-dose 75+ series) 2021 INFLUENZA VACCINE (#1) 2024 , 01/05/2023, 01/06/2022 COVID-19 Vaccine (6 - 2024-2 6 season) 2024 01/16/2023, 12/10/2021, 01/17/2021, Additional history exists DIABETES HBA1C Q 6 MONTHS 01/03/20252024, 06/12/2024, 06/11/2024, Additional history exists LDL CHOLESTEROL ANNUAL 06/12/2025 06/12/2024, 2024 DIABETES ANNUAL RETINAL EXAM 07/12/2025, 07/12/2024, 07/12/2024, Additional history exists ZOSTER VACCINE Completed 10/30/2021, 04/19/2021 PNEUMOCOCCAL VACCINE 50+ YEARS Completed 0 04/22/2023, 02/21/2019, 04/02/2017 Medical Devices Implanted Type Area Museum Curator Device Identifier Shelf Expiration Date Model / Serial / Lot Clip Ligating Horizon Med Ti [id number] - Csc - [id number] Implanted:Qty: 1 on 06/15/2024 by Mary Herrera DO at [facility] Clip Right: Groin TELEFLEX- WECK CLOSURE SYS [id number] 02/27/2029 [id number] / / [id number] Clip Ligating Horizon Red [id number] - Csc - [id number] Implanted:Qty: 1 on 06/15/2024 by Mary Herrera DO at [facility] Clip Right: Groin TELEFLEX INC [id number] 02/16/2029 / / [id number] Agent Hemostat Surgicel 2x3in - [id number] Implanted:Qty: 1 on 06/15/2024 by Mary Herrera DO at [facility] Hemostatic Right: Groin J[employer]J- [employer] [id number] 09/19/20281952S / / [id number] Lens Iol Tecnis Eyhance 22.5 [id number] - [id number] Implanted:Qty: 1 on 12/16/2022 by Edison Cabrales MD at [facility] Lens Left: Eye GEE MED OPTICS-J&J VISION 10/03/2025 [id number] / [id number] / NA Lens Iol Tecnis Eyhance 22.5 [id number] - [id number] Implanted:Qty: 1 on 12/30/2022 by Edison Cabrales MD at [facility] Lens Right: Eye [employer]EE [employer] VISION 09/04/2025 [id number] 25 / [id number] / Stent Vasc Enroute 10-8x40mm [id number] - [id number] Implanted:Qty: 1 on 06/15/2024 by Mary Herrera DO at [facility] Stent Right: Carotid SILKROAD [id number] 10/20/2026 [id number] 0-TCS / / [id number] Procedures Procedure Name Priority Date/Time Associated Diagnosis Comments LIPID PANEL Routine 06/12/2024 7:23 AM CDT HEMOGLOBIN A1C Routine 06/12/2024 7:23 AM CDT from Last 3 Months or Most Recently Relevant to Health Maintenance Results * (ABNORMAL) HEMOGLOBIN A1C (06/12/2024 7:23 AM CDT) HEMOGLOBIN A1C 7.5(H) <=5.6 % 06/13/2024 12:03 PM CDT [facility] EST. AVG GLUCOSE, A1C 169 mg/dL 06/13/2024 12:03 PM CDT [facility] Blood Venipuncture / Unknown 06/12/2024 7:23 AM CDT 06/12/2024 7:57 AM CDT Narrative [facility] - 06/13/2024 12:03 PM CDT HGB A1C INTERPRETATION NORMAL: <5.7% PRE-DIABETES: 5.7 - 6.4% DIABETES: 6.5% OR GREATER us Alirio Mckenzie MD CHEMISTRY ORDERABLES Final R esult [facility] CLIA # [id number] [address] [place] [address] * (ABNORMAL) LIPID PANEL (06/12/2024 7:23 AM CDT) CHOLESTEROL 89 <200 mg/dL 06/12/2024 10:40 AM CDT [facility] TRIGLYCERIDE 101 <150 mg/dL 06/12/2024 10:40 AM CDT [facility] HDL 34(L) 40 - 59 mg/dL 06/12/2024 10:40 AM CDT [facility] LDL CALCULATED 35 <100 mg/dL 06/12/2024 10:40 AM CDT [facility] NON-HDL CHOLESTEROL 55 <130 mg/dL 06/12/2024 10:40 AM CDT [facility] [employer] [facility] Blood Venipuncture / Unknown 06/12/2024 7:23 AM CDT 06/12/2024 7:57 AM CDT Narrative [facility] [employer] [facility] - 06/12/2024 10:40 AM CDT TOTAL CHOLESTEROL mg/dL Desirable <200 Borderline high [...] Reference Ranges for Lipid Panels (NCEP/AMA) . Alirio Mckenzie MD CHEMISTRY ORDERABLES Final R esult [facility] [employer] [facility] CLIA # [id number] [facility] [address] from Last 3 Months or Most Recently Relevant to Health Maintenance Insurance MEDICARE PART A AND B [employer] [place] [id number] Advance Directives For more information, please contact: [phone] Documents on File Type Date Recorded Patient Machine Quilt Stuffer Expl anation Advance Directive POA 08/10/2024 8:19 [...]
--- OUTSIDE RECORDS SUMMARY | 2024-12-16 09:56 | XMS_ITS | Patient Health Record ---
Author Organization [facility] Address [address] [place] [address] Care Team Providers Care Station Agent Name Role Phone Humberto Griggs DO Primary Care Provider Unavail able AntonDenis Unavailable [phone] Allergies No Known Allergies Reason For Referral No Information Medications Medication SIG (Take, Route, Frequency, Duration) Notes Start Date End Date Status Mupirocin 2 % Ointment 1 application Ext ernally Twice a day Active Fluticasone Propionate 93 MCG/ACT Exhaler Suspension 2 sprays (1 spray in each nostril) Nasally Twice a day Active Losartan Potassium 25 MG Tablet 1 tablet Orally Once a day; Duration: 30 day(s) Active hydrALAZINE HCl 10 MG Tablet 1 tablet with food Orally Three times a day Active Magnesium 250 MG Tablet 1 tablet with a meal Orally Once a day Active amLODIPine Besylate 10 MG Tablet TAKE 1 TABLET BY MOUTH ONCE DAILY FOR BLOOD PRESSURE Oral; Duration: 90 Active Xyzal Allergy 24HR 5 MG Tablet 1 tablet in the evening Orally Once a day Active Metoprolol Succinate ER 100 MG Tablet Extended Release 24 Hour TAKE 1 TABLET BY MOUTH ONCE DAILY FOR BLOOD PRESSURE Oral; Duration: 90 Active Carvedilol 25 MG Tablet 1 tablet with fo od Orally Twice a day Active Rosuvastatin Calcium 40 MG Tablet TAKE 1 TABLET BY MOUTH ONCE DAILY FOR CHOLESTEROL Oral; Duration: 90 Active Lisinopril 40 MG Tablet 1 tablet Orally Once a day Active Pantoprazole Sodium 40 MG Tablet Delayed Release TAKE 1 TABLET BY MOUTH IN THE MORNING FOR STOMACH Oral; Duration: 30 Active Xarelto 10 MG Tablet 1 tablet Orally Once a day Active Ergocalciferol 1.25 MG (38637 UT) Capsule 1 capsule Orally once weekly for 20 weeks; Duration: 30 day(s) Active Lantus SoloStar 100 UNIT/ML Solution Pen-injector INJECT 75 UNITS SUBCUTANEOUSLY AT BEDTIME NIGHTLY FOR DIABETES Subcutaneous; Duration: 30 Activ e Allopurinol 100 MG Tablet Take 1 tablet by mouth once daily for 30 days; Duration: 30 Active Sildenafil Citrate 20 MG Tablet 1 tablet Orally Once a day A ctive Triamcinolone Acetonide 0.5 % Ointment APPLY TO AFFECTED ITCHY AREA OF SKIN 2 4 TIMES A DAY UNTIL RESOLVED External; Duration: 3 Active Potassium Chloride ER 20 MEQ Tablet Extended Release 1 tablet with food Orally Once a day Active Triamterene-HCTZ 75-50 MG Tablet TAKE 1 TABLET BY MOUTH ONCE DAILY FOR BLOOD PRESSURE Oral; Duration: 90 Active Allopurinol 100 MG Tablet 1 tablet Orall y Once a day; Duration: 30 day(s) Active glipiZIDE ER 10 MG Tablet Extended Release 24 Hour TAKE 1 TABLET BY MOUTH IN THE MORNING FOR DIABETES Oral; Duration: [...] Details Miscellaneous: Marital status: 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 [employer] Children: x2 Living with: spouse Level of Education: Finished hig h school Living Situation: Home Section Notes: Evangelical: Jehovah Witness Smoked 1ppd from [age] y/o Evangelical: Jehovah Witness Smoked 1ppd from 18-27 y/o Evangelical: Jehovah Witness Smoked 1ppd from 18-27 y/o Evangelical: Jehovah Witness Smoked 1ppd from 18-27 y/o Evangelical: Jehovah Witness Smoked 1ppd from 18-27 y/o Evangelical: Jehovah Witness Smoked 1ppd from 18-27 y/o Evangelical: Jehovah Witness Smoked 1ppd from 18-27 y/o Evangelical: Jehovah Witness Smoked 1ppd from 18-27 y/o Problems Problem Type SNOMED Code ICD Code Onset Dates Problem Status W/U Status Risk Notes Problem Diabetic renal disease (243239301) Type 2 diabetes mellitus with diabetic chronic kidney disease (E11.22) Active confirmed Problem Chronic kidney disease due to hypertension (376292993236995) Hypertensive chronic kidney disease with stage 1 through stage 4 chronic kidney disease, or unspecified chronic kidney disease (I12.9) Active confirmed Problem Hyperparathyroidism (35073262) Hyperparathyroidism (E21.3) Active confirmed Problem Benign hypertension (80700941) Hypertension, benign (I10) Active confirmed Problem Vitamin D deficiency (99239229) Vitamin D deficiency (E55.9) Active confirmed Problem Diabetic neuropathy (288146532) Diabetic neuropathy (E11.40) Active confirmed Problem Sleep apnea (22995488) Sleep apnea (G47.30) Active confirmed Problem Diabetes mellitus (18684447) Diabetes mellitus (E11.9) Active confirmed Problem Chronic kidney disease stage 3B (disorder) (953911653) Chronic kidney disease, stage 3b (N18.32) Active confirmed Plan Of Treatment Pending Test Test Name Order Date Albumin 12559 11/26/2021 Basic Metabolic Panel (BMP) 37806 2021 Magnesium (B) 59426 11/26/2021 Phosphorus (B) 06826 11/26/2021 Protein (U) Random 45497 11/26/2021 Uric Acid (B) 84196 11/26/2021 Vitamin D Total (B) 50961 11/26/2021 Creatinine (U) 70177 11/26/2021 UA Reflex Micro, Reflex Cult 38774, 8101 5, 42506 11/26/2021 PTH Intact 77178 11/26/2021 Insurance Providers Payer Name Payer Address Payer Phone Subscriber Number Group Number Insured Name Patient Relationship to Insured Coverage Start Date Coverage End Date [place] [address] [place] [id number] [phone] [id number] Andrés Dumont Self - patient is the insured Medico [place] [address] [address] [place] [id number] Andrés Dumont Self - patient is the insured Medical (General) History Medical History History ICD Code type II diabetes mellitus hypertension (1997) hyperlipidemia peripheral neuropathy CKD secondary hyperparathyriodism Surgical History Surgery Date(Month/Year) cholecystectomy 08/2021 inguinal hernia repair right with hyproc [place] evacuation Hospitalization History Reason Date(Month/Year) see surgical
--- NOTE | 2024-12-16 09:57 | W.ED.SOB ---
HPI - SOB/Dyspnea General: Chief Complaint: Shortness of Breath/Dyspnea Stated Complaint: SOB Time Seen by Provider: 12/16/24 09:52 History of Present Illness: HPI Narrative: 79-year-old man with a history of hypertension, atrial fibrillation, chronic anticoagulation on Xarelto and Plavix, obesity, diabetes, peripheral vascular disease and venous insufficiency who presents to the emergency room by ambulance from a [facility]pc with shortness of breath. Apparently has had a several pound weight gain and had increased Lasix dosage. He has some pedal edema. This over last couple days has had worsening shortness of breath. No known fevers. Related Data Home Medications ?Medication ?Instructions ?Recorded ?Confirmed pantoprazole 40 mg tablet,delayed 40 mg PO BID 11/19/20 11/17/24 release fluticasone propionate 50 2 spray intranasal DAILY PRN Nasal 09/18/21 11/17/24 mcg/actuation nasal Congestion spray,suspension glipizide 10 mg tablet, extended 10 mg PO DAILY 09/18/21 11/17/24 release 24 hr triamterene 75 1 tab PO DAILY 12/18/21 11/17/24 mg-hydrochlorothiazide 50 mg tablet furosemide 20 mg tablet (Lasix) 20 mg PO DAILY PRN Edema 11/16/23 11/17/24 multivitamin (Multiple Vitamins 1 tab PO DAILY 03/28/24 11/17/24 tablet) insulin glargine 100 unit/mL (3 35 unit SUBCUT BID 05/17/24 11/17/24 mL) subcutaneous pen (Lantus Solostar U-100 Insulin) lisinopril 20 mg tablet 20 mg PO DAILY 05/17/24 11/17/24 potassium chloride 10 mEq 10 meq PO BID 06/10/24 11/17/24 tablet,extended release albuterol sulfate 90 mcg/actuation 2 puff inhalation .Q4-6H 07/23/24 11/17/24 aerosol inhaler clopidogrel 75 mg tablet 75 mg PO DAILY 07/23/24 11/17/24 escitalopram oxalate 10 mg tablet 10 mg PO QPM 07/23/24 11/17/24 ursodiol 300 mg capsule 1,500 mg PO DAILY 07/23/24 11/17/24 Previous Rx's ?Medication ?Instructions ?Recorded carvedilol 12.5 mg tablet 12.5 mg PO BID #180 tabs 03/28/24 rosuvastatin 40 mg tablet 40 mg PO DAILY #30 tabs 05/18/24 rivaroxaban 20 mg tablet (Xarelto) See Rx Instructions .Route 07/18/24 .COMPLEX #30 tabs tamsulosin 0.4 mg capsule (Flomax) 0.4 mg PO DAILY #30 caps 08/21/24 methylprednisolone 4 mg tablets in See Rx Instructions PO .COMPLEX 10/01/24 a dose pack (Medrol (Derrell)) #21 ea dexamethasone 6 mg tablet 6 mg PO DAILY 5 days #5 tabs 12/16/24 doxycycline hyclate 100 mg capsule 100 mg PO BID 7 days #14 caps 12/16/24 Allergies Allergy/AdvReac Type Severity Reaction Status Date / Time lovastatin Allergy RASH Verified 10/17/24 09:01 blood Allergy Unknown Trisha's Uncoded 10/17/24 09:01 witness Review of Systems Narrative: Constitutional symptoms: Negative except as documented in HPI. Skin symptoms: Negative except as documented in HPI. Eye symptoms: Negative except as documented in HPI. ENMT symptoms: Negative except as documented in HPI. Respiratory symptoms: Negative except as documented in HPI. Cardiovascular symptoms: Negative except as documented in HPI. Gastrointestinal symptoms: Negative except as documented in HPI. Genitourinary symptoms: Negative except as documented in HPI. Musculoskeletal symptoms: Negative except as documented in HPI. Neurologic symptoms: Negative except as documented in HPI. Psychiatric symptoms: Negative except as documented in HPI. Endocrine symptoms: Negative except as documented in HPI. PFS ED PFSH: Medical History (Updated 12/16/24 @ 11:40 by Mitzi Ramirez MD) Hypertension Anticoagulation adequate with anticoagulant therapy Atrial fibrillation with controlled ventricular rate BPH (benign prostatic hyperplasia) Mass of right kidney Diabetes mellitus Acute cholecystitis Callus of foot Chronic ulcer of great toe of right foot, limited to breakdown of skin [place] Peripheral arterial disease Diabetic peripheral neuropathy associated with type 2 diabetes mellitus Diabetes mellitus GERD (gastroesophageal reflux disease) Venous insufficiency Prostatitis, acute Acute cystitis with hematuria Surgical History Hx of cholecystectomy Status post right inguinal hernia repair Status post colonoscopy (12/13/20) descending colon polyp H/O esophagogastroduodenoscopy (12/13/20) normal Hx of tonsillectomy Family History Mother , AT AGE 73 Cancer COLON Father , AT AGE 50 Diabetes Social History Smoking and tobacco/nicotine status: former use of tobacco/nicotine (quit 1974) Alcohol intake: current Alcohol intake frequency: holidays/special occasions only Marital status: Current occupational status: retired Physical Exam Narrative: EXAM NARRATIVE: General: Alert, no acute distress. Skin: Warm, dry. Head: Normocephalic, atraumatic. Neck: Supple, trachea midline. Eye: Extraocular movements are intact. Ears, nose, mouth and throat: Oral mucosa moist. Cardiovascular: Regular rate and rhythm, Normal peripheral perfusion. Respiratory: Coarse breath sounds, mild tachypnea, wheeze Gastrointestinal: Soft, Nontender, Non distended Musculoskeletal: Normal ROM, no deformity. Neurological: Alert and oriented, No focal neurological deficit observed. Psychiatric: Cooperative, appropriate mood & affect. Course Vital Signs: Vital signs: Vital Signs Temperature 97.5 F L 12/16/24 09:54 Pulse Rate 66 12/16/24 12:30 Respiratory Rate 17 12/16/24 12:30 Blood Pressure 132/60 12/16/24 12:30 Pulse Oximetry 98 12/16/24 12:30 Oxygen Delivery Me thod Room Air 12/16/24 10:12 MDM - SOB/Dyspnea Medical Decision Making Differential diagnosis for patient with shortness of breath includes but is not limited to and based on the above HPI, review of systems and physical exam: Pneumonia. Bronchitis. Asthma or COPD with acute exacerbation. Acute coronary syndrome / [place]. Pulmonary embolism. Anxiety. Congestive heart failure. Viral infections including influenza and Covid-19. Atrial fibrillation. Anxiety. Pleural effusion. Pneumothorax. Orders placed to evaluate differential diagnosis based on the above differential, HPI and physical exam EKG: Time 1001. Rate 56. Atrial fibrillation with slow rate, No ST-T changes, no ectopy, This was reviewed and interpreted by myself the ER physician at 10:05 AM Chest x-ray: No acute process. No infiltrate. No pneumothorax. This was reviewed and interpreted by myself the emergency room physician. I also reviewed the radiology report. Lab Review: Laboratory results were reviewed and interpreted by myself the emergency room physician. No leukocytosis. Slightly worsening anemia. Renal function is increased over his baseline although he does appear to have some chronic disease. I have advised to cease with aggressive diuresis. Flu COVID and RSV are negative I reviewed the patient's medical record. 79-year-old man with a history of hypertension, atrial fibrillation, chronic anticoagulation on Xarelto and Plavix, obesity, diabetes, peripheral vascular disease, venous insufficiency, history of stroke, I do not see any documented history of congestive heart failure. He is on Lasix however. Reexamination: Patient remained stable. No increased work of breathing. No altered mental status. No focal motor deficits. No oxygen requirements. He does report that he has had some increased cough and congestion. Perhaps he have something viral or bronchitis. I will treat as such Assessment and plan: Shortness of breath Bronchitis - Discharged home - Discussed plan with patient. Answered any questions. - Evaluation and treatment of this problem were appropriate in the emergency setting. Lab Data 12/16/24 10:10 12/16/24 10:10 Labs/Radiology: Radiology Impressions Chest X-Ray 12/16/24 09:55 IMPRESSION: 1. No acute cardiopulmonary finding. Laboratory Results WBC 9.05 10^3/uL (3.29-11.43) 12/16/24 10:10 RBC 3.35 10^6/uL (3.85-5.65) L 12/16/24 10:10 Hgb 9.60 g/dL (11.27-16.99) L 12/16/24 10:10 Hct 31.1 % (37-53) L 12/16/24 10:10 MCV 92.8 fl (82-101) 12/16/24 10:10 MCH 28.7 pg (27-33) 12/16/24 10:10 MCHC 30.9 g/dL (30-55) 12/16/24 10:10 RDW 17.4 % (12.1-15.1) H 12/16/24 10:10 Plt Count 381 10^3/cmm (157-399) 12/16/24 10:10 MPV 8.9 fL (7.4-10.4) 12/16/24 10:10 Neut % (Auto) 71.8 % 12/16/24 10:10 Lymph % (Auto) 10.2 % 12/16/24 10:10 [place] % (Auto) 11.2 % 12/16/24 10:10 Eos % (Auto) 5.4 % 12/16/24 10:10 Baso % (Auto) 0.3 % 12/16/24 10:10 Neut # (Auto) 6.50 10^3/uL (1.8-7.7) 12/16/24 10:10 Lymph # (Auto) 0.9 10^3/uL (0.8-4.8) 12/16/24 10:10 [place] # (Auto) 1.0 10^3/uL (0.2-0.9) H 12/16/24 10:10 Eos # (Auto) 0.5 10^3/uL (0.0-0.8) 12/16/24 10:10 Baso # (Auto) 0.0 10^3/uL (0.0-0.1) 12/16/24 10:10 Nucleated RBC % (auto) 0 % 12/16/24 10:10 Nucleated RBCs # 0.0 /100WBC 12/16/24 10:10 Specimen Type Arterial 12/16/24 09:56 Sample Site Radial, left 12/16/24 09:56 ABG pH 7.39 (7.35-7.45) 12/16/24 09:56 ABG pCO2 41.6 mmHg (35-45) 12/16/24 09:56 ABG pO2 211.0 mmHg (80.0-100.0) H 12/16/24 09:56 ABG HCO3 25.1 mmol/L (22-26) 12/16/24 09:56 ABG O2 Saturation 99.0 12/16/24 09:56 ABG Base Excess 0.1 mmol/L (-2.0-2.0) 12/16/24 09:56 Todd Test Pos 12/16/24 09:56 A-a O2 Gradient Not Reportable 12/16/24 09:56 Hematocrit 30.0 % (42-52) L 12/16/24 09:56 Hgb O2 Saturation 97.2 % (95-100) 12/16/24 09:56 Carboxyhemoglobin 1.0 %THgb (0.4-20.1) 12/16/24 09:56 Methemoglobin 0.9 % (0.4-1.5) 12/16/24 09:56 Total Hemoglobin 9.8 g/dL (14-18) L 12/16/24 09:56 Sodium 135.0 mmol/L (131-143) 12/16/24 09:56 Potassium 4.3 mmol/L (3.5-5.0) 12/16/24 09:56 Glucose 271.0 mg/dL (70-115) H 12/16/24 09:56 Ionized Calcium 1.1 mmol/L (1.1-1.4) 12/16/24 09:56 O2 Delivery Device Cont neb 12/16/24 09:56 O2 Liters/Min 8.0 % 12/16/24 09:56 Configuration Management Manager ID [place] 12/16/24 09:56 Sodium 134 mmol/L (136-145) L 12/16/24 10:10 Potassium 4.4 mmol/L (3.5-5.1) 12/16/24 10:10 Chloride 96 mmol/L (98-107) L 12/16/24 10:10 Carbon Dioxide 24 mmol/L (22-29) 12/16/24 10:10 Anion Gap 18.4 (5-19) 12/16/24 10:10 BUN 52 mg/dL (8-23) H 12/16/24 10:10 Creatinine 2.0 mg/dL (0.7-1.2) H 12/16/24 10:10 GFR Calculation Not Reportable 12/16/24 10:10 Glucose 260 mg/dL (65-115) H 12/16/24 10:10 Calculated Osmolality 301 mOsm/kg (285-295) H 12/16/24 10:10 Lactic Acid 1.2 mmol/L (0.5-2.2) 12/16/24 10:10 Calcium 8.3 mg/dL (8.5-10.5) L 12/16/24 10:10 Total Bilirubin 0.5 mg/dL (0.15-1.2) 12/16/24 10:10 AST 16 U/L (0-40) 12/16/24 10:10 ALT 13 U/L (0-41) 12/16/24 10:10 Alkaline Phosphatase 155 U/L (40-130) H 12/16/24 10:10 Troponin T Baseline 31 ng/L (0-15) H 12/16/24 10:10 Troponin T 120 Minute 29.85 ng/L (0-15) H 12/16/24 11:48 Delta Troponin T -1.15 ABS# (0-10) L 12/16/24 11:48 C-Reactive Protein 85.1 mg/L (0.0-4.9) H 12/16/24 10:10 NT-Pro-B Natriuret Pep 2515 pg/mL (0-450) H 12/16/24 10:10 Total Protein 7.5 g/dL (6.6-8.7) 12/16/24 10:10 Albumin 2.8 g/dL (3.5-5.2) L 12/16/24 10:10 Globulin 4.7 g/dL (1.3-4.6) H 12/16/24 10:10 Procalcitonin 0.24 ng/mL (0-0.5) 12/16/24 10:10 Influenza A (PCR) Negative (Negative) 12/16/24 10:10 Influenza Type B (PCR) Negative (Negative) 12/16/24 10:10 RSV (PCR) Negative (Negative) 12/16/24 10:10 SARS-CoV-2 (PCR) Negative (Negative) 12/16/24 10:10 All radiology interpretation(s) finalized by discharge Discharge Plan Discharge Patient Disposition: Home Clinical Impression: Shortness of breath, Bronchitis Condition: Stable Prescriptions: New doxycycline hyclate 100 mg capsule 100 mg PO BID 7 Days Qty: 14 0RF dexamethasone 6 mg tablet 6 mg PO DAILY 5 Days Qty: 5 0RF No Action pantoprazole 40 mg tablet,delayed release (DR/EC) 40 mg PO BID triamterene-hydrochlorothiazid 75-50 mg tablet 1 tab PO DAILY furosemide [Lasix] 20 mg tablet 20 mg PO DAILY PRN (Reason: Edema) multivitamin [Multiple Vitamins] Tablet 1 tab PO DAILY carvedilol 12.5 mg tablet 12.5 mg PO BID Qty: 180 3RF Rx Instructions: must administer with a meal/food Xarelto 20 mg tablet See Rx Instructions .ROUTE .COMPLEX Qty: 30 0RF Dose Instruction: TAKE 1 TABLET BY MOUTH DAILY; must administer with evening meal Rx Instructions: TAKE 1 TABLET BY MOUTH DAILY; must administer with evening meal glipizide 10 mg tablet extended release 24hr 10 mg PO DAILY fluticasone propionate 50 mcg/actuation [place],Suspension 2 spray INTRANASAL DAILY PRN (Reason: Nasal Congestion) Rx Instructions: administer into each nostril lisinopril 20 mg tablet 20 mg PO DAILY insulin glargine [Lantus Solostar U-100 Insulin] 100 unit/mL (3 mL) insulin pen 35 unit SUBCUT BID rosuvastatin 40 mg tablet 40 mg PO DAILY Qty: 30 0RF potassium chloride 10 mEq tablet extended release 10 meq PO BID clopidogrel 75 mg tablet 75 mg PO DAILY ursodiol 300 mg capsule 1,500 mg PO DAILY Rx Instructions: TAKE 5 CAPSULES BY MOUTH ONCE DAILY IN 2-3 DIVIDED DOSES albuterol sulfate 90 mcg/actuation HFA aerosol inhaler 2 puff INHALATION .Q4-6H escitalopram oxalate 10 mg tablet 10 mg PO QPM tamsulosin [Flomax] 0.4 mg capsule 0.4 mg PO DAILY Qty: 30 0RF methylprednisolone [Medrol (Derrell)] 4 mg tablets,dose pack See Rx Instructions .ROUTE .COMPLEX Qty: 21 0RF Rx Instructions: for 6 days Discharge Orders: Discharge ED (Routine); Ordered 12/16/24 Ordered By: Mitzi Ramirez Referrals: Humberto Griggs DO [Primary Care Provider, Family Practice] Discharge Diet: Usual diet Discharge Activity: Increase activity as tolerated Patient Instructions: Opioid Safety, Pain Management, Patient Portal & Ann Instructions Activity Restrictions/Additional Instructions: Workup reveals no signs of pneumonia, congestive heart failure, fluid in the lungs or any other abnormalities. You are not requiring any oxygen. I would hold on any further aggressive diuresis as kidney numbers are up a bit. Resume usual Lasix dosage. Repeat BUN and creatinine in 3 to 5 days. Thank you for choosing [facility] for your healthcare needs today. You have been screened and evaluated and felt safe for discharge. Health conditions do change or evolve sometimes and as such it is important that you follow up with your Primary Doctor to be re checked, 3-5 days is a general good time frame for follow up. You are always welcome to return to the ED for re assessment if your symptoms are worsening or you have new concerns Print Language: Cambodian Coding Level of Care Code ED Machine Cementer And Folder for Lois Greco
--- NOTE | 2024-12-16 10:01 | ECG_ITS ---
[employer] Test Date: 2024-12-16 Pat Name: Andrés Dumont Department: Room: Gender: Male Radiation Monitor: : 1945 Requested By: Mitzi Galvan Order Number: [id number] Twila MD: QUINTON CHURCHILL Measurements Intervals [place] Rate: 56 P: 0 OR: 0 QRS: -57 QRSD: 82 T: 60 QT: 459 QTc: 446 Interpretive Statements ATRIAL FIBRILLATION WITH SLOW VENTRICULAR RESPONSE WITH ABERRANT CONDUCTION OR VENTRICULAR PREMATURE COMPLEXES LOW QRS VOLTAGE IN EXTREMITY LEADS [QRS DEFLECTION < 0.5 mV IN LIMB LEADS] PATTERN CONSISTENT WITH PULMONARY DISEASE LEFT ANTERIOR FASCICULAR BLOCK [QRS AXIS <= -45, QR IN I, RS IN II] SEPTAL MYOCARDIAL INFARCTION , OF INDETERMINATE AGE [40+ ms Q WAVE IN V1/V2] Compared to ECG 08/20/2024 23:17:06 Ventricular premature complex(es) now present Aberrant conduction of supraventricular beat(s) now present Left anterior fascicular block now present Myocardial infarct finding still present Electronically Signed On 12-17-2024 21:35:21 CDT by QUINTON CHURCHILL [id number] [id number]
[2024-12-16 10:07] LABS: ABG PCO2 41.6 mmHg (35-45); ABG PH Result 7.39 (7.35-7.45); Arterial Blood Gas Hematocrit 30.0 % (42-52); Blood Gas Allen Test Pos; Blood Gas LPM 8.0 %; Blood Gas Operator Identificat WALCI; Blood Gas Sample Site Radial, left; Blood Gas Sample Type Arterial; Carboxyhemoglobin 1.0 %THgb (0.4-20.1); Glucose Level-ABG 271.0 mg/dL (70-115); HCO3 ABG 25.1 mmol/L (22-26); Ionized Calcium Level - ABG 1.1 mmol/L (1.1-1.4); Methemoglobin 0.9 % (0.4-1.5); Oxygen Saturation ABG 99.0; PO2 ABG 211.0 mmHg (80.0-100.0); Potassium Level - ABG 4.3 mmol/L (3.5-5.0); Sodium Level - ABG 135.0 mmol/L (131-143)
[2024-12-16 10:12] VITALS: BP 118/69; PULSE 67; RESP 19; O2SAT 98
[2024-12-16 10:21] LABS: Hematocrit 31.1 % (37-53); Hemoglobin 9.60 g/dL (11.27-16.99); Mean Corpuscular HGB Conc 30.9 g/dL (30-55); Mean Corpuscular Hemoglobin 28.7 pg (27-33); Mean Corpuscular Volume 92.8 fl (82-101); Nucleated Red Blood Cells % 0 %; Platelet Count 381 10^3/cmm (157-399); Red Blood Count 3.35 10^6/uL (3.85-5.65); White Blood Count 9.05 10^3/uL (3.29-11.43)
[2024-12-16 10:36] LABS: Lactic Sepsis W/Reflex 1.2 mmol/L (0.5-2.2)
[2024-12-16 10:43] LABS: NT Pro B Type Natriuretic Pept 2515 pg/mL (0-450); Procalcitonin 0.24 ng/mL (0-0.5)
[2024-12-16 10:45] LABS: Troponin(5th) Baseline 31 ng/L (0-15)
[2024-12-16 10:54] LABS: Alanine Aminotransferase 13 U/L (0-41); Albumin Level 2.8 g/dL (3.5-5.2); Alkaline Phosphatase 155 U/L (40-130); Anion Gap 18.4 (5-19); Aspartate Amino Transferase 16 U/L (0-40); Blood Urea Nitrogen 52 mg/dL (8-23); Calcium 8.3 mg/dL (8.5-10.5); Carbon Dioxide 24 mmol/L (22-29); Chloride 96 mmol/L (98-107); Creatinine Clr Calc Pharmacy 41.5459; Globulin 4.7 g/dL (1.3-4.6); Glucose 260 mg/dL (65-115); Osmolality Calculated 301 mOsm/kg (285-295); Potassium 4.4 mmol/L (3.5-5.1); Sodium 134 mmol/L (136-145); Total Protein 7.5 g/dL (6.6-8.7)
[2024-12-16 10:55] LABS: Respiratory Syncytial Virus Ce NEGATIVE (Negative); SARS-CoV-2 PCR NEGATIVE (Negative)
[2024-12-16 11:28] VITALS: BP 118/68; PULSE 65; RESP 16; O2SAT 98
--- NOTE | 2024-12-16 11:55 | ECG_ITS ---
[employer] Test Date: 2024-12-16 Pat Name: Andrés Dumont Department: Room: Gender: Male Commercial Sales Specialist: : 1945 Requested By: Mitzi Galvan Order Number: [id number] Reading MD: QUINTON CHURCHILL Measurements Intervals [place] Rate: 60 P: 0 IN: 0 QRS: -48 QRSD: 88 T: 57 QT: 453 QTc: 454 Interpretive Statements ATRIAL FIBRILLATION LOW QRS VOLTAGE IN EXTREMITY LEADS [QRS DEFLECTION < 0.5 mV IN LIMB LEADS] PATTERN CONSISTENT WITH PULMONARY DISEASE LEFT ANTERIOR FASCICULAR BLOCK [QRS AXIS <= -45, QR IN I, RS IN II] Compared to ECG 12/16/2024 10:01:45 Ventricular premature complex(es) no longer present Aberrant conduction of supraventricular beat(s) no longer present Myocardial infarct finding no longer present Electronically Signed On 12-17-2024 21:40:47 CDT by QUINTON CHURCHILL [id number] [id number]
[2024-12-16 12:24] LABS: Troponin 5 2HR 29.85 ng/L (0-15)
[2024-12-16 12:30] VITALS: BP 132/60; PULSE 66; RESP 17; O2SAT 98
[2024-12-16 12:33] LABS: Troponin 5 2HR Delta -1.15 ABS# (0-10)
--- NOTE | 2024-12-16 13:24 | PC.NURSE ---
Report called to Gris at [facility], [facility] ETA @1400; no further questions/concerns. pt and family updated.
--- NOTE | 2024-12-16 13:42 | PC.NURSE ---
report given to [facility] @0883, discharge papers sent with EMS
[2024-12-16 13:46] VITALS: BP 142/70; PULSE 67; O2SAT 92
== END 2024-12-16 13:47 | disposition home or self-care (01) ==
PROVIDERS: Emergency Provider Emergency Medicine; PCP Electrodiagnostic Medicine
DX: R06.02 Shortness of breath (principal); J40 Bronchitis, not specified as acute or chronic; Z11.52 Encounter for screening for COVID-19; Z79.4 Long term (current) use of insulin; Z87.891 Personal history of nicotine dependence; I10 Essential (primary) hypertension; E11.42 Type 2 diabetes mellitus with diabetic polyneuropathy
CPT/HCPCS: 36415; 36600; 71045; 80051; 80053; 82330; 82805; 83605; 83880; 84145; 84484; 85025; 86140; 87040; 87637; 93005; 99285

== ENCOUNTER → 2024-12-20 13:30 | Outpatient (BNVA) | payer MEDICARE, OTHER, SELFPAY | PROVIDERS: PCP Electrodiagnostic Medicine; Visit Provider Thoracic Surgery (Cardiothoracic Vascular Surgery) | DX: E11.52 Type 2 diabetes mellitus with diabetic peripheral angiopathy with gangrene (principal); E11.621 Type 2 diabetes mellitus with foot ulcer; L89.621 Pressure ulcer of left heel, stage 1; L89.611 Pressure ulcer of right heel, stage 1 | CPT/HCPCS: 97597 ==

== ENCOUNTER → 2024-12-26 14:22 | Outpatient (BNVA) | payer MEDICARE, OTHER, SELFPAY | PROVIDERS: PCP Electrodiagnostic Medicine; Visit Provider Nurse Practitioner Family | DX: I48.91 Unspecified atrial fibrillation (principal); Z79.01 Long term (current) use of anticoagulants; I12.9 Hypertensive chronic kidney disease with stage 1 through stage 4 chronic kidney disease, or unspecified chronic kidney disease; E11.22 Type 2 diabetes mellitus with diabetic chronic kidney disease; N18.9 Chronic kidney disease, unspecified; Z79.4 Long term (current) use of insulin; G47.30 Sleep apnea, unspecified; Z87.891 Personal history of nicotine dependence | CPT/HCPCS: 99214 ==

== ENCOUNTER 2024-12-27 09:13 | Observation (INO) | payer MEDICARE, OTHER, SELFPAY ==
[2024-12-27] VITALS (17 sets, daily range): BP systolic 91–166; BP diastolic 48–71; PULSE 53–84; RESP 14–20; TEMP 36.1–36.7; O2SAT 94–100; BMI 32.3
--- NOTE | 2024-12-27 09:15 | ECG_ITS ---
[facility] Test Date: 2024-12-27 Pat Name: Andrés Dumont Department: Room: ED Gender: Male Transporter Radiology: : 1945 Requested By: Alexis Galvan Order Number: [id number] Twila MD: Danny Mcdonough M.D. Measurements Intervals [place] Rate: 56 P: 0 MA: 0 QRS: -52 QRSD: 90 T: 60 QT: 459 QTc: 443 Interpretive Statements ATRIAL FIBRILLATION WITH SLOW VENTRICULAR RESPONSE LOW QRS VOLTAGE IN EXTREMITY LEADS [QRS DEFLECTION < 0.5 mV IN LIMB LEADS] PATTERN CONSISTENT WITH PULMONARY DISEASE LEFT ANTERIOR FASCICULAR BLOCK [QRS AXIS <= -45, QR IN I, RS IN II] Compared to ECG 12/16/2024 11:55:02 No significant changes Electronically Signed On 12-27-2024 23:50:20 CDT by Danny Mcdonough M.D. [email or web address] [id number]
--- NOTE | 2024-12-27 09:15 | CT_ITS ---
WS: [id number] CT HEAD NONCONTRAST HISTORY: Symptoms of acute stroke, left-sided facial droop. TECHNIQUE: Contiguous axial imaging performed through the brain. Bone and soft tissue windows. Sagittal and coronal reformats reviewed. All CT scans at [facility] use at least one of these dose optimization techniques: automated exposure control; mA and/or kV adjustment per patient size (includes targeted exams where dose is matched to clinical indication); or iterative reconstruction. DLP: 1424.10 mGy COMPARISON: 07/23/2024 No acute intracranial hemorrhage, midline shift or mass effect. Advanced atrophy and small vessel disease. Confluent low-attenuation throughout the white matter. Remote infarct in the posterior RIGHT parietal lobe. Moderate cerebellar atrophy. Ventricles: Ventricles and extra-axial bases are prominent on the basis of atrophy. Paranasal sinuses: Near complete opacification of the maxillary sinuses. Bilateral ethmoid air cell and sphenoid sinus disease. Sinus disease is new since the prior study. Mastoid air cells: Well pneumatized. Calvarium and scalp: Skull is intact with no soft tissue edema or swelling. Extensive calcifications in the intracranial carotid and vertebral arteries. CT/CT head thrombolytic 96406 IMPRESSION: 1. No acute intracranial hemorrhage or edema. 2. Advanced cerebral and cerebellar atrophy with small vessel disease. 3. Remote posterior RIGHT parietal lobe infarct. 4. New sinusitis involving the ethmoid, sphenoid and maxillary sinuses. 5. Advanced atherosclerotic plaque in the intracranial carotid and vertebral a rteries. Notified Alexis Barillas DO at 12/27/2024 9:29 AM.
--- OUTSIDE RECORDS SUMMARY | 2024-12-27 09:22 | XMS_ITS | Clinical Summary ---
Author Organization [facility] Facility Address [address] [place] [id number] Care Team Providers Care Orthopedic Physician Assistant Name Role Phone Unavailable Primary Care Provider [...] 1 (one) time each day with breakfast 5 Active potassium chloride 10 MEQ CR tablet Take 10 mEq by mouth in the morning and 10 mEq in the evening. 4 Active pantoprazole (PROTONIX) 40 MG EC tablet Take 40 mg by mouth in the morning. Active Multiple Vitamin (Daily Vites) tablet Take 1 tablet by mouth in the morning. Active lisinopril 20 MG tablet Take 20 mg by mouth 1 (one) time each day FOR BLOOD PRESSURE 5 Active insulin glargine (Lantus SoloStar) 100 UNIT/ML injection inject 20 units EVERY MORNING and again at night Active HYDROcodone-ximena taminophen (NORCO) 5-325 MG per tablet Take 1 tablet every 6 hours by oral route as needed for 30 days. 5 Active fluticasone (FLONASE) 50 MCG/ACT nasal spray Administer 2 sprays into each nostril in the morning and 2 sprays in the evening. 2 Active carvedilol (COREG) 12.5 MG tablet Take 12.5 mg by mouth in the morning and 12.5 mg in the evening. Take with meals. Active clopidogrel (PLAVIX) 75 MG tablet Take 75 mg by mouth 1 (one) time each day 5 Active amLODIPine (NORVASC) 10 MG tablet Take 10 mg by mouth 1 (one) time each day Active amiodarone (PACERONE) 200 MG tablet Take 200 mg by mouth in the morning. 5 Active albuterol HFA (PROVENTIL HFA;VENTOLIN HFA) 108 (90 Base) MCG/ACT inhaler Inhale 2 puffs every 4 (four) to 6 (six) hours if needed 5 Active ondansetron (ZOFRAN) 4 MG tablet Take by mouth 5 Active bisacodyl (Dulcolax) 10 MG suppository Insert [...] 80mg in am and 40mg in pm 5 Active Active Problems Problem Noted Date Diagnosed Date Chronic kidney disease stage 3B 11/22/2024 Atrial fibrillation Essential hypertension Diabetes mellitus without me ntion of complication, type II or unspecified type, not stated as uncontrolled Encounters Date Type Department Care Team Description 11/22/2024 10:30 AM CDT Office Visit [facility] [address] [place] [address] Cassidy Alvarado NP Essential hypertension (Primary Dx); Diabetes mellitus without mention of complication, type II or unspecified type, not stated as uncontrolled (HCC); Longstanding persistent atrial fibrillation (HCC); Chronic kidney disease stage 3B (HCC) 11/22/2024 Documentation Only [facility], [facility] [address] [place] [address] Camasse, Tess 11/22/2024 Documentation Only [facility] [address] [place] [phone] Camasse, Tess 11/16/2024 Telephone [facility] [address] [place] [phone] Sangeetha Pollard MD 11/16/2024 Documentation Only [facility] [address] [place] [address] Camasse, Tess 11/11/2024 Telephone [facility] [address] [place] [phone] Sangeetha Pollard MD from Last 3 Months [...] st Contact Info) Description 2025 10: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/ZIP Co de Phone Number PRINT/EXTERNAL (NON-INTERFACED LABS) * PTH, intact (11/18/2024 9:25 AM CDT) Parathyroid Hormone, Intact 140.8 pg/mL PRINT/TELE RN AL (NON-INTERFACE D LABS) Blood Venous blood / Unknown 11/18/2024 9:25 AM CDT Sangeetha Pollard MD LAB BLOOD ORDERABLES Final Re sult Performing Organization Address [facility]/ZIP Co de Phone Number PRINT/EXTERNAL (NON-INTERFACED LABS) * [...] mg/dL PRINT/EXTERNAL (NON-INTERFACE D LABS) eGFR Non-Afr Beninese 42.5 PRINT/EXTERNAL (NON-INTERFACE D LABS) Blood Venous blood / Unknown 11/18/2024 9:25 AM CDT us Sangeetha Pollard MD LAB BLOOD ORDERABLES Final Re sult PRINT/EXTERNAL (NON-INTERFACED LABS) from Last 3 Months Insurance Medicare [employer] [id number]
--- OUTSIDE RECORDS SUMMARY | 2024-12-27 09:22 | XMS_ITS | Continuity of Care Document ---
Author Organization [facility], LJose AntonioLLaura, [facility] ([facility]) Address [address] [place] [address] Care Team Providers Care Fitness Management Director Name Role Phone CHA JONES Primary Care [...] Modified By Organization Details Last Modified Time 12/22/2024 [id number] seen in ER for pneumonia, tx wtih doxy and prednisone. Breathing improved. Edema improving. [email or web address] Not available 12/22/2024 12:47:24 Reason for Referral None Reported. Problems Name Problem SNOMED Code Status Onset Date Resolution Date Notes Provider Name and Address Organization Details Recorded Time Foot ulcer due to type 2 diabetes mellitus 78794251920 00 Active 2022 DIABETIC TOE ULCER; Impressi on: Right toe, resolved , continue s f/u with Dr. Goodman Delmy jeter [facility], L.LLaura 5 07:56:23 Type 2 diabetes mellitus 81578152 Active 2022 ELVIA jeter [facility], L.L.CJose Antonio 3 11:57:16 Hypercho lesterol emia 95765144 Active 2022 Delmy jeter [facility], L.LLaura 5 07:56:23 Ulcer of toe 619814337 Active 2022 Cha Jones, [address] [place] [address], [address] , [facility], HanselCJose Antonio 3 09:38:37 [facility] l hyperten sai 42072176 Active 2022 Delmy jeter, [facility], HanselCJose Antonio 5 07:56:23 Atrial fibrilla tion 55205630 Active 2023 Delmy jeter, [facility], HanselCJose Antonio 5 07:55:39 Age related macular degenera tion 154404576 Active 2023 Delmy jeter, [facility], HanselCJose Antonio 5 07:55:35 Congesti ve heart failure 64514018 Active 2023 Delmy jeter, [facility], CandelariaL.CJose Antonio 5 07:55:51 Chronic kidney disease stage 3B 577922829 Active 2023 Delmy jeter, [facility], CandelariaL.CJose Antonio 5 07:55:45 Edema of lower extremit y 697008887 Active 2023 Delmy jeter [facility], HanselCJose Antonio 5 07:56:23 Acute bronchit is 96174882 Completed 202306/21/2024 Delmy jeetr, [facility], CandelariaL.CJose Antonio 5 07:55:32 Hypokale jerica 85222380 Active 2023 Delmy jeter [facility], CandelariaL.CJose Antonio 5 07:56:23 Pain of bilatera l hip joints 04771422121 458775 Active 2023 Delmy jeter, [facility], L[facility]L.C. 5 07:55:42 Gastroes ophageal reflux disease 798178265 Active 2023 Delmy jeter, [facility]. 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 5 07:56:23 Abnormal gait due to muscle weakness 977694623 Active 2024 [facility] 5 07:56:23 Right carotid artery stenosis 92533945223 9100 Active 2024 [facility] 5 11:28:49 Chronic bronchit is 26759752 Active 2024 Delmyisabell Mariscal [facility], L[facility]. 5 11:28:47 Primary biliary cholangi tis 73754738 Active 2024 Cha Jones, DO [address] [place] [address], [address] , [facility], [facility] 5 11:27:33 Difficul ty sleeping 068921864 Active 2024 [facility] 5 17:35:55 Closed fracture of hip 186255690 Active 2024 [facility] 5 16:41:22 Bilatera l lower limb edema 745786814 Active 2024 [facility] 5 12:49:21 Pneumoni a 621509405 Active 2024 [facility] 5 12:47:01 Notes:Some problems listed i n Documents: #[id number], #[id number], #[id number], #[id number] could not be added to this patient's chart. Please review these documents and add these problems to the patient's chart manually as needed. Problem Notes None recorded. Procedures Surgical History Date Name Laterality Status Provider Name and Address Organization Details Recorded Time tonsillectomy completed ALEXIA BURCIAGA [facility], L.L.CJose Antonio 05/25/2024 11:58:08 Cholecystectomy completed ALEXIASTAR BURCIAGA [facility], L.L.CJose Antonio 05/25/2024 11:58:14 Imaging Results None recorded. Procedure Notes None recorded. Medical Equipment None Reported. Allergies Allergen ID Allergen Name Allergen Category Reaction Reaction Severity Criticality Documentation Date Start Date Code Code System Note Provider Name and Address Organization Details Recorded Time 59 lovastati n medicatio n Not available Not available Not available 06/06/2022 6472 RxNorm Sondra [facility]St[facility], L.L.CJose Antonio 3 12:00:13 Medications Name Sig Start Date Stop Date Status Note LastModified by Organization Details LastModified Time Prescript ion - New 09/22 completed Not Available Not Available Not Available Prescript ion - Prior Authoriza tion Request active [place] 5/325 Not Available Not Available Not Available [...] Avai lable lisinopri l 20 mg tablet Take 1 tablet by mouth once daily for blood pressure 2024 active Not Available Not Available Not Avai lable prednison e 20 mg tablet TAKE 2 [...] Available fluoromet holone 0.1 % eye drops,[place] pension INSTILL ONE DROP IN THE LEFT EYE [...] Not Available loratadin e daily 12/24 completed 95179; Recorded 10/16/19 22 2:59PM by Elvia Singh (Vince martinez through Cha Jones DO), Office Visit; Not Available Not Available Not Available Lasix every morning 12/24 completed DM/sd; 46797; Recorded 12/12/19 22 1:18PM by Elvia Snigh (Vince martinez through Cha Jones DO), Refill Request; Refill Quantity : 30; Tablet; Not Available Not Available Not Available fluconazo le daily 12/24 completed 0; Recorded 06/04/19 23 11:43AM by Pina Smart, Office Visit; Not Available Not Available Not Available carvedilo l two times daily 12/24 completed 14062; Recorded 02/26/20 11:07AM by Pina Smart (Authori zed through [employer] , DO), Office Visit; Refill Quantity : 60; Tablet; Not Available Not Available Not Available hydralazi ne three times daily 12/24 completed DM/sd; 42401; Recorded 01/22/20 10:41AM by Rafiq Medellin (Authori zed through [employer] , DO), Office Visit; Refill Quantity : 0; Not Available Not Available Not Available lisinopri l daily 12/24 completed 97009; Recorded 11/13/19 9:23AM by Rafiq Medellin (Authori zed through [employer] , DO), Office Visit; Refill Quantity : 90; Tablet; Not Available Not Available Not Available sildenafi l daily 12/24 completed 43777; Recorded 10/16/19 2:59PM by Elvia Singh (Authori zed through [employer] , DO), Office Visit; Not Available Not Available Not Available glipizide daily 12/24 completed 36139; Recorded 11/13/19 9:23AM by Rafiq Medellin (Authori zed through [employer] , DO), Office Visit; Not Available Not Available Not Available multivita min active Not Available Not Available Not Available Potassium Chloride ER two times daily 12/24 completed DM/sd; 83866; Recorded 03/27/19 1:52PM by Elvia Singh (Authori zed through [employer] , DO), Annotati on/Adden dum; Refill Quantity [...] Available Eliquis two times daily 12/24 completed 09629; Recorded 11/13/19 22 9:23AM by Rafiq Medellin (Authori michelle through Cha Jones DO), Office Visit; Refill Quantity : 60; Tablet; Not Available Not Available Not Available potassium chloride ER 20 mEq tablet,ex tended release Take 1 tablet every day by oral route. 06/21 completed Not Available Not Available Not Available FreeStyle Kalani 2 Sensor as directed 05/25 completed Not Available Not Available Not Available FreeStyle Kalani 2 [place] as directed 05/25 completed Not Available Not [...] Details Last Updated DateTime 5 187.96 cm 67 /min 20 /min 98.5 [degF] 97 % 97 % 165/70 mm[Hg] ERIC JARAMILLO [facility] 12:45:04 Social History Question Answer Notes LastModified by Organizat ion Details LastModified Time Tobacco Smoking Status Former Smoker Edvin jeter [facility] 10/05/2023 09:45:48 What Is Your Level Of Caffeine Consumption? Moderate Coffee [email or web address] Information not available 05/25/2024 How Many Years Have You Smoked Tobacco? 20 [email or web address] Information not available 10/05/2023 Sex: Unknown Functional Status Question Answer Note LastModified by Organizat ion Details LastModified Time Do you use any illicit or recreational drugs? No [email or web address] Information not available 08/14/2022 Do you or have you ever used any other forms of tobacco or nicotine? No Information not available 08/14/2022 What is your level of alcohol consumption? None [email or web address] Information not available 08/14/2022 Are you currently employed? No [email or web address] Information not available 05/25/2024 Are you able to walk independently without assistance or assistive devices? YESASSIST walker [email or web address] Information not available 05/25/2024 Are you able to care for yourself independently? Yes [email or web address] Information not available 05/25/2024 Mental Status None recorded. Family History Relationship Description Onset Age of this Age Resolved Age Notes LastModified by Organization Details LastModified Time Father Diabetes mellitus [email or web address] Not available 05/25 11:55:50 Father Motor vehicle accident age 50 [email or web address] Not available 05/25/2024 11:56:43 Mother Malignant neoplasm of colon age 73 [email or web address] Not available 05/25/2024 11:56:22 Paternal Grandmother Natural [...] zoster recombinant 2 completed Cha Jones DO [address] [place] [address], [address], [facility] 04/22/2023 11:34:44 zoster recombinant 2 completed Cha Jones [address], [address], [facility] 04/22/2023 11:34:44 Influenza, high-dose, quadrivalent, PF 2 completed Cha Jones DO [address] [place] [address], [address], [facility] 04/22/2023 11:34:45 COVID-19, mRNA, LNP-S, PF, 100 mcg/0.5mL dose or 50 mcg/0.25mL dose 1 completed Cha Jones DO [address] [place] [address], [address], [facility] 04/22/2023 11:34:45 COVID-19, mRNA, LNP-S, PF, 100 mcg/0.5mL dose or 50 mcg/0.25mL dose 1 completed Cha Jones DO [address] [place] [address], [address], [facility] 04/22/2023 11:34:45 COVID-19, mRNA, LNP-S, PF, 100 mcg/0.5mL dose or 50 mcg/0.25mL dose 1 arthur Jones DO [address] [place] [address], [address], [facility] 04/22/2023 11:34:45 COVID-19, mRNA, LNP-S, bivalent, PF, 50 mcg/0.5 mL or 25mcg/0.25 mL dose 2 completed Cha Jones DO [address] [place] [address], [address], [facility] 04/22/2023 11:34:45 pneumococcal polysaccharide PPV23 8 completed Cha Jones DO [address] [place] [address], [address], [facility] 04/22/2023 11:34:45 Pneumococcal conjugate PCV 13 9 completed Cha Jones [address], [address], [facility] 04/22/2023 11:34:45 Influenza, high-dose, quadrivalent, PF 3 completed Delmy jeter [facility] 06/21/2024 09:00:08 COVID-19, mRNA, LNP-S, PF, 50 mcg/0.5 mL 3 completed Delmy jeter [facility] 06/21/2024 09:00:08 Pneumococcal conjugate PCV20, polysaccharide QWI466 conjugate, adjuvant, PF 4 completed Cha Jones DO [address] [place] [address], [address], [facility] 04/23/2023 08:45:56 Influenza, split virus, trivalent, PF 4 completed PINA jeter [facility] 12/28/2023 11:39:19 Past Encounters Encounter ID Performer Location Encounter Start Date Encounter Closed Date Diagnosis/Indication Diagnosis SNOMED-CT Code Diagnosis ICD10 Code Diagnosis IMO Codes Diagnosis Note [id number] Juancarlos Lassiter [facility] ([facility]) [address] [place] [address] 12/01/2024 11:46:53 12/06/2024 10:05:32 Edema of lower extremity 588335999 R60.0 Type 2 ciro betes mellitus 14092422 E11.69 E11.42 E11.22 [id number] Juancarlos Lassiter [facility] ([facility]) [address] [place] [address] 12/22/2024 12:38:28 12/27/2024 08:38:20 Pneumonia 263895657 J18.9 [id number] Health Concerns Section Related Observation LastModified by Organization Detai ls LastModified Time None Recorded Concern Status LastModified by Organization Details LastModified Time None Recorded Payers Encounter Date Sequence Insurance Name Policy Number Policy Mc Covered Member ID Mc Member ID Guarantor Name 12/22/2024 1 [place] Andrés Dumont [id number] Andrés Dumont 12/22/2024 2 [employer] (MEDICARE SUPPLEMENT) Andrés Dumont [id number] Andrés Dumont Notes Date Note Type Note Provider Name and Address Organization Details Recorded Time 5 text/html HypertensionReported by PatientHPIFor severity, patient reportsgrade 1 (130-139/80-89). For duration, patient reportshas noted for years. For alleviating factors, patient reportsmedication.ROS as noted in the [facility] ER follow up, seen for SOB. Juancarlos Lassiter DO [address] [place] [address], [phone], [facility] [place] [facility] 12/26/2024 14:35:11
--- OUTSIDE RECORDS SUMMARY | 2024-12-27 09:22 | XMS_ITS | Clinical Summary ---
Author Organization [facility] Address [address] [place] [address] Care Team Providers Care Windows Vmware Engineer Name Role Phone Unavailable Primary Care Provider Unavailabl e Allergies Active Allergy Reactions Criticality Noted Date Comments Lovastatin Muscle Pain,Other (S ee Comments) Low 01/13/2023 Bgngucc-Ctv-Utj Reductase Inhibitors Itching Low 12/30/2022 Medications pantoprazole (PROTONIX) 40 mg Tablet, Delayed Release (E.C.) Take 40 mg by mouth daily. Active rosuvastatin (CRESTOR) 40 mg tablet Take 40 mg by mouth daily. Active fluticasone propionate (FLONASE) 50 mcg/spray [place], Suspension nasal inhaler USE 2 SPRAY(S) IN [...] Data STL ABSTRACTION Provider, Abstract 10/26/2024 Telephone [facility] Vascular Surgery [place] [id number] [place] [address] Mary Herrera, Appointment Needed from Last 3 Months Immunizations Immunization Administration Dates Next Due (PNEUMOVAX 23)(50 YRS UP) PN EUMOCOCCAL POLYSACCHARIDE (PPV23) 0.5 ML, IM 04/02/2017 (PREVNAR 13)(6 WKS UP) PNEUM OCOCCAL CONJUGATE (PCV13) 0.5 ML, IM 02/21/2019 (PREVNAR 20)(6 WKS UP) PNEUM OCOCCAL CONJUGATE VACCINE 20-VALENT (PCV20), POLYSACCHARIDE VSA732 CONJUGATE, ADJUVANT 0.5 ML (PF) IM 04/22/2023 [...] (#1) 2024 , 01/05/2023, 01/06/2022 COVID-19 Vaccine ( - 2024-2 6 season) 2024 01/16/2023, 12/10/2021, 01/17/2021, Additional history exists DIABETES HBA1C Q 6 MONTHS 01/03/20252024, 06/12/2024, 06/11/2024, Additional history exists LDL CHOLESTEROL ANNUAL 06/12/2025 06/12/2024, 2024 DIABETES ANNUAL RETINAL EXAM 07/12/2025, 07/12/2024, 07/12/2024, Additional history exists ZOSTER VACCINE Completed 10/30/2021, 04/19/2021 PNEUMOCOCCAL VACCINE 50+ YEARS Completed 0 04/22/2023, 02/21/2019, 04/02/2017 Medical Devices Implanted Type Area Program Director Cable Television Device Identifier Shelf Expiration Date Model / Serial / Lot Clip Ligating [employer] Ti [id number] - Csc - [id number] Implanted:Qty: 1 on 06/15/2024 by Mary Herrera DO at [facility] Clip Right: Groin TELEFLEX- WECK [employer] SYS [id number] 02/27/2029 [id number] / / [id number] Clip Ligating Horizon Red [id number] - Csc - [id number] Implanted:Qty: 1 on 06/15/2024 by Mary Herrera DO at [facility] Clip Right: Groin TELE[employer]LEX INC [id number] 02/16/2029 [id number] / / [id number] Agent Hemostat Surgicel 2x3in - [id number] Implanted:Qty: 1 on 06/15/2024 by Mary Herrera DO at [facility] Hemostatic Right: Groin J[employer]J- [employer] [id number] 09/19/20281952S / / [id number] Lens Iol Tecnis Eyhance 22.5 [id number] - [id number] Implanted:Qty: 1 on 12/16/2022 by Edison Cabrales MD at [facility] Lens Left: Eye GEE [employer] OPTICS-J[employer]J VISION 10/03/2025 [id number] / [id number] / NA Lens Iol Tecnis Eyhance 22.5 [id number] - [id number] Implanted:Qty: 1 on 12/30/2022 by Edison Cabrales MD at [facility] Lens Right: Eye [employer] 09/04/2025 [id number] 25 / [id number] / Stent Vasc Enroute 10-8x40mm [id number] - [id number] Implanted:Qty: 1 on 06/15/2024 by Mary Herrera DO at [facility] Stent Right: Carotid SILKROAD [id number] 10/20/2026 [id number] 0-TCS / / [id number] Procedures Procedure Name Priority Date/Time Associated Diagnosis Comments LIPID PANEL Routine 06/12/2024 7:23 AM CDT HEMOGLOBIN A1C Routine 06/12/2024 7:23 AM CDT from Last 3 Months or Most Recently Relevant to Health Maintenance Results * (ABNORMAL) HEMOGLOBIN A1C (06/12/2024 7:23 AM CDT) HEMOGLOBIN A1C 7.5(H) <=5.6 % 06/13/2024 12:03 PM CDT [facility] EST. AVG GLUCOSE, A1C 169 mg/dL 06/13/2024 12:03 PM CDT [facility] Blood Venipuncture / Unknown 06/12/2024 7:23 AM CDT 06/12/2024 7:57 AM CDT Narrative [facility] - 06/13/2024 12:03 PM CDT HGB A1C INTERPRETATION NORMAL: <5.7% PRE-DIABETES: 5.7 - 6.4% DIABETES: 6.5% OR GREATER us Alirio Mckenzie MD CHEMISTRY ORDERABLES Final R esult [facility] CLIA # [id number] [address] [place] [address] * (ABNORMAL) LIPID PANEL (06/12/2024 7:23 AM CDT) CHOLESTEROL 89 <200 mg/dL 06/12/2024 10:40 AM CDT [facility] TRIGLYCERIDE 101 <150 mg/dL 06/12/2024 10:40 AM CDT [facility] HDL 34(L) 40 - 59 mg/dL 06/12/2024 10:40 AM CDT [facility] LDL CALCULATED 35 <100 mg/dL 06/12/2024 10:40 AM CDT [facility] NON-HDL CHOLESTEROL 55 <130 mg/dL 06/12/2024 10:40 AM CDT [facility] Blood Venipuncture / Unknown 06/12/2024 7:23 AM CDT 06/12/2024 7:57 AM CDT Narrative [facility] [email or web address] [facility] - 06/12/2024 10:40 AM CDT TOTAL CHOLESTEROL [...] Mckenzie MD CHEMISTRY ORDERABLES Final R esult [facility] [email or web address] [facility] CLIA # [id number] [address] [place] [address] from Last 3 Months or Most Recently Relevant to Health Maintenance Insurance MEDICARE PART A AND B Gocella INS SUPP ALESSIO RODGERS [id number] Advance Directives For more information, please contact: [phone] Documents on File Type Date Recorded Patient Certified Massage Therapist Expl anation Advance Directive POA 08/10/2024 8:19 [...]
--- OUTSIDE RECORDS SUMMARY | 2024-12-27 09:22 | XMS_ITS | Patient Health Record ---
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 Children: x2 Living with: spouse Level of Education: Finished hig [employer] school Living Situation: Home Section Notes: Cheondoism: Jehovah Witness Smoked 1ppd from 19-27 y/o Cheondoism: Jehovah Witness Smoked 1ppd from 18-27 y/o Cheondoism: Jehovah Witness Smoked 1ppd from 18-27 y/o Cheondoism: Jehovah Witness Smoked 1ppd from 18-27 y/o Cheondoism: Jehovah Witness Smoked 1ppd from 18-27 y/o Cheondoism: Jehovah Witness Smoked 1ppd from 18-27 y/o Cheondoism: Jehovah Witness Smoked 1ppd from 18-27 y/o Cheondoism: Jehovah Witness Smoked 1ppd from [age] y/o Problems Problem Type SNOMED Code ICD Code Onset Dates Problem Status W/U Status Risk Notes Problem Diabetic renal disease (598786088) Type 2 diabetes mellitus with diabetic chronic kidney disease (E11.22) Active confirmed Problem Chronic kidney disease due to hypertension (352133809718260) Hypertensive chronic kidney disease with stage 1 through stage 4 chronic kidney disease, or unspecified chronic kidney disease (I12.9) Active confirmed Problem Hyperparathyroidism (53542929) Hyperparathyroidism (E21.3) Active confirmed Problem Benign hypertension (07475914) Hypertension, benign (I10) Active confirmed Problem Vitamin D deficiency (99380936) Vitamin D deficiency (E55.9) Active confirmed Problem Diabetic neuropathy (067537916) Diabetic neuropathy (E11.40) Active confirmed Problem Sleep apnea (39294954) Sleep apnea (G47.30) Active confirmed Problem Diabetes mellitus (46636920) Diabetes mellitus (E11.9) Active confirmed Problem Chronic kidney disease stage 3B (disorder) (013692837) Chronic kidney disease, stage 3b (N18.32) Active confirmed Plan Of Treatment Pending Test Test Name Order Date Albumin 75727 11/26/2021 Basic Metabolic Panel (BMP) 81566 2021 Magnesium (B) 30490 11/26/2021 Phosphorus (B) 37577 11/26/2021 Protein (U) Random 76671 11/26/2021 Uric Acid (B) 70900 11/26/2021 Vitamin D Total (B) 87810 11/26/2021 Creatinine (U) 99718 11/26/2021 UA Reflex Micro, Reflex Cult 17601, 8101 5, 91683 11/26/2021 PTH Intact 70795 11/26/2021 Insurance Providers Payer Name Payer Address Payer Phone Subscriber Number Group Number Insured Name Patient Relationship to Insured Coverage Start Date Coverage End Date [place] [address] [place] [id number] Andrés Dumont Self - patient is the insured Medico [place] [address] [address] [place] [phone] [id number] Andrés Dumont Self - patient is the insured Medical (General) History Medical History History ICD Code type II diabetes mellitus hypertension (1997) hyperlipidemia peripheral neuropathy CKD secondary hyperparathyriodism Surgical History Surgery Date(Month/Year) cholecystectomy 08/2021 inguinal hernia repair right with hyproc adelia evacuation Hospitalization History Reason Date(Month/Year) see surgical
--- OUTSIDE RECORDS SUMMARY | 2024-12-27 09:22 | XMS_ITS | Data Portability ---
Author Organization CAYETANO Aly [facility], [facility] Address [address] [place] [address] Care Team Providers [facility] Dean Name Role Phone MAZIN JONESK Primary Care Provider Unavailabl e Assessment No [...] Modified By Organization Details Last Modified Time 09/15/2024 [id number] Continued edema, with little to no improvement. Will d/c hydralazine. Increase lasix to bid and start aldactone 25mg daily. Labs Thursday. f/u 1 week. [email or web address] Not available 09/15/2024 11:55:24 09/22/2024 [id number] edema improved form last week. sugars too low, will decrease lantus to 25mg bid. Not available 09/22/2024 12:49:04 11/03/2024 [id number] Increase zoloft to 100mg at hs to help with sleep and anxiety. Sugars reviewed fasting too low, postprandial too high. Decrease lantus to 20 units bid and start humalog 10 units with meals. Weight 2x weekly. Metolazone 5mg one time dose. BMP on Thursday. f/u in 1 week. [email or web address] Not available 11/03/2024 14:25:55 12/01/2024 [id number] Sugars too high, increase insulin. Edema improved, weight down 5lbs in the last week, on lasix and metolazone. Will get bmp on Thursday. Not available 12/01/2024 12:12:16 12/22/2024 [id number] seen in ER for pneumonia, tx wtih doxy and prednisone. Breathing improved. Edema improving. [email or web address] Not available 12/22/2024 12:47:24 Reason for Referral None Reported. Problems Name Problem SNOMED Code Status Onset Date Resolution Date Notes Provider Name and Address Organization Details Recorded Time Foot ulcer due to type 2 diabetes mellitus 92989122298 00 Active 2022 DIABETIC TOE ULCER; Impressi on: Right toe, resolved , continue s f/u with Dr. Goodman Delmy jeter [facility] 5 07:56:23 Type 2 diabetes mellitus 90200141 Active 2022 ELVIA jeter [facility] 3 11:57:16 Hypercho lesterol emia 63256635 Active 2022 Delmy jeter [facility] 5 07:56:23 Ulcer of toe 402004911 Active 2022 Cha Jones, [address], [address] , [facility] 3 09:38:37 [facility] l hyperten sai 27144189 Active 2022 Delmy jeter [facility] 5 07:56:23 Atrial fibrilla tion 92461796 Active 2023 Delmy jeter [facility] 5 07:55:39 Age related macular degenera tion 297670784 Active 2023 Delmy jeter [facility] 5 07:55:35 Congesti ve heart failure 00147192 Active 2023 Delmy jeter, [facility] 5 07:55:51 Chronic kidney disease stage 3B 717932586 Active 2023 eDlmy jeter, [facility] 5 07:55:45 Edema of lower extremit y 075051029 Active 2023 Delmy jeter, [facility] 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 07:56:23 Right carotid artery stenosis 87376410343 9100 Active 2024 Delmy jeter [facility] 11:28:49 Chronic bronchit is 45007319 Active 2024 Delmy jeter [facility] 11:28:47 Primary biliary cholangi tis 29056029 Active 2024 Cha Jones, [address], [address] , [facility] 11:27:33 Difficul ty sleeping 988255620 Active 2024 Rafiq Bookernuria jeter [facility] 17:35:55 Closed fracture of hip 274713484 Active 2024 ERIC jeter [facility] 16:41:22 Bilatera l lower limb edema 591153549 Active 2024 ERIC JARAMILLO steffany [facility] 12:49:21 Pneumoni a 135027691 Active 2024 [facility] 12:47:01 Notes:Some problems listed i n Documents: #[id number], #[id number], #[id number], #[id number] could not be added to this patient's chart. Please review these documents and add these problems to the patient's chart manually as needed. Problem Notes None recorded. Procedures Surgical History Date Name Laterality Status Provider Name and Address Organization Details Recorded Time tonsillectomy completed ALEXIA BURCIAGA [facility] 05/25/2024 11:58:08 Cholecystectomy completed ALEXIA BURCIAGA [facility] 05/25/2024 11:58:14 Imaging Results None recorded. Procedure Notes None recorded. Medical Equipment None Reported. Allergies Allergen ID Allergen Name Allergen Category Reaction Reaction Severity Criticality Documentation Date Start Date Code Code System Note Provider Name and Address Organization Details Recorded Time 59 lovastati n medicatio n Not available Not available Not available 06/06/2022 6472 RxNorm Sondra Abdelrahman jeter [facility], [place] 3 12:00:13 Medications Name Sig Start Date Stop Date Status Note LastModified by Organization Details LastModified Time Prescript ion - New 09/22 completed Not Available Not Available Not Available Prescript ion - Prior Authoriza tion Request active [place] 5/325 Not Available Not Available Not Available [...] Available Not Available No t Available azithromy amdaa 250 mg tablet TAKE 1 TABLET BY [...] Not Available loratadin e daily 12/24 completed 78635; Recorded 10/16/19 22 2:59PM by Elvia Singh (Authori zed through [employer] , DO), Office Visit; Not Available Not Available Not Available Lasix every morning 12/24 completed DM/sd; 90393; Recorded 12/12/19 1:18PM by Elvia Singh (Authori zed through [employer] , DO), Refill Request; Refill Quantity : 30; Tablet; Not Available Not Available Not Available fluconazo le daily 12/24 completed 0; Recorded 06/04/19 11:43AM by Pina Smart, Office Visit; Not Available Not Available Not Available carvedilo l two times daily 12/24 completed 51786; Recorded 02/26/20 11:07AM by Pina Smart (Authori zed through [employer] , DO), Office Visit; Refill Quantity : 60; Tablet; Not Available Not Available Not Available hydralazi ne three times daily 12/24 completed DM/sd; 44595; Recorded 01/22/20 22 10:41AM by Rafiq Medellin (Authori zed through [employer] , DO), Office Visit; Refill Quantity : 0; Not Available Not Available Not Available lisinopri l daily 12/24 completed 02274; Recorded 11/13/19 9:23AM by Rafiq Medellin (Authori zed through [employer] , DO), Office Visit; Refill Quantity : 90; Tablet; Not Available Not Available Not Available sildenafi l daily 12/24 completed 95153; Recorded 10/16/19 2:59PM by Elvia Singh (Authori zed through [employer] , DO), Office Visit; Not Available Not Available Not Available glipizide daily 12/24 completed 06283; Recorded 11/13/19 9:23AM by Rafiq Medellin (Authori zed through [employer] , DO), Office Visit; Not Available Not Available Not Available multivita min active Not Available Not Available Not Available Potassium Chloride ER two times daily 12/24 completed DM/sd; 90033; Recorded 03/27/19 1:52PM by Elvia Singh (Authori zed through [employer] , DO), Annotati on/Adden dum; Refill Quantity [...] Available Eliquis two times daily 12/24 completed 79357; Recorded 11/13/19 9:23AM by Rafiq Medellin (Authori zed through [employer] , DO), Office Visit; Refill Quantity : 60; Tablet; Not Available Not Available Not Available potassium chloride ER 20 mEq tablet,ex tended release Take 1 tablet every day by oral route. 06/21 completed Not Available Not Available Not Available FreeStyle Kalani 2 Sensor as directed 05/25 completed Not Available Not Available Not Available FreeStyle Kalani 2 [place] as directed 05/25 completed Not Available Not [...] [degF] 98 % 98 % 136/75 mm[Hg] [facility] 5 11:53:27 Date Recorded Body height Heart rate Respiratory rate Body temperature Oxygen saturation Oxygen saturation in Arterial blood by Pulse oximetry Systolic And Diastolic Provider Name and Address Organization Details Last Updated DateTime 5 187.96 cm 65 /min 14 /min 97.6 [degF] 97 % 97 % 140/70 mm[Hg] [facility] 5 12:43:37 Date Recorded Body height Heart rate Respiratory rate Body temperature Oxygen saturation Oxygen saturation in Arterial blood by Pulse oximetry Systolic And Diastolic Provider Name and Address Organization Details Last Updated DateTime 5 187.96 cm 65 /min 20 /min 97.5 [degF] 95 % 95 % 136/70 mm[Hg] [facility] 5 13:55:10 Date Recorded Body height Heart rate Respiratory rate Body temperature Oxygen saturation Oxygen saturation in Arterial blood by Pulse oximetry Systolic And Diastolic Provider Name and Address Organization Details Last Updated DateTime 5 187.96 cm 68 /min 18 /min 97.8 [degF] 98 % 98 % 142/75 mm[Hg] [facility] 5 12:09:25 Date Recorded Body height Heart rate Respiratory rate Body temperature Oxygen saturation Oxygen saturation in Arterial blood by Pulse oximetry Systolic And Diastolic Provider Name and Address Organization Details Last Updated DateTime 5 187.96 cm 67 /min 20 /min 98.5 [degF] 97 % 97 % 165/70 mm[Hg] ERIC JARAMILLO [facility] 12:45:04 Social History Question Answer Notes LastModified by [email or web address] Details LastModified Time Tobacco Smoking Status Former Smoker Edvin jeter [facility] 10/05/2023 09:45:48 What Is Your Level Of Caffeine Consumption? Moderate Coffee [email or web address] Information not available 05/25/2024 How Many Years Have You Smoked Tobacco? 20 [email or web address] Information not available 10/05/2023 Sex: Unknown Functional Status Question Answer Note LastModified by Peer39 Details LastModified Time Do you use any illicit or recreational drugs? No [email or web address] Information not available 08/14/2022 Do you or have you ever used any other forms of tobacco or nicotine? No Information not available 08/14/2022 What is your level of alcohol consumption? None [email or web address] Information not available 08/14/2022 Are you currently employed? No Information not available 05/25/2024 Are you able to walk independently without assistance or assistive devices? YESASSIST walker [email or web address] Information not available 05/25/2024 Are you able to care for yourself independently? Yes [email or web address] Information not available 05/25/2024 Mental Status None recorded. Family History Relationship Description Onset Age of this Age Resolved Age Notes LastModified by Organization Details LastModified Time Father Diabetes mellitus [email or web address] Not available 05/25 11:55:50 Father Motor vehicle accident age 50 Not available 05/25/2024 11:56:43 Mother Malignant neoplasm of colon age 73 [email or web address] Not available 05/25/2024 11:56:22 Paternal Grandmother Natural age 102 [email or web address] Not available 05/25/2024 11:57:08 Medical History Condition Response Coronary Artery Disease N Other Y Gout N Kidney Stones N Blood Diseases N Hyperthyroidism N Breast Cancer N Blood Transfusion N Depression N Hypothyroidism N Lung Disease N COPD N Defects or Inherited Disease N Developmental or Behavioral Disorders N Breast Problem N Difficulty Swallowing N Anesthesia Complications N Meniere's disease N Anxiety Disorder N Muscle, Joint, or Bone Problems N Vision or Eye Problems N Arthritis N Polyps N Infertility N Cancer N Varicosities N Stroke N Endometriosis N Bladder or Kidney Problems N High Cholesterol Y Liver Disease N Fibromyalgia N Headaches N Kidney Disease Y Allergies/Hayfever N Heart [...] N Heart Disease N Pulmonary Embolism N Pre-Eclampsia N Hypertension Y Chronic Ear Infections N Osteoporosis N Chicken Pox N Autism Spectrum Disorder (ASD) N Thrombophilias N Immunizations Vaccine Type Date Status Note Provider Nam e and Address Organization Details Recorded Time zoster recombinant 2 completed Cha Jones DO [address] [place] [address], [phone], [facility] 04/22/2023 11:34:44 zoster recombinant 2 completed Cha Jones DO [address] [place] [address], [phone], [facility] 04/22/2023 11:34:44 Influenza, high-dose, quadrivalent, PF 2 completed Cha Jones DO [address] [place] [address], [phone], [facility] 04/22/2023 11:34:45 COVID-19, mRNA, LNP-S, PF, 100 mcg/0.5mL dose or 50 mcg/0.25mL dose 1 arthur Jones DO [address] [place] [address], [phone], [facility] 04/22/2023 11:34:45 COVID-19, mRNA, LNP-S, PF, 100 mcg/0.5mL dose or 50 mcg/0.25mL dose 1 completed Cha Jones DO [address] [place] [address], [phone], [facility] 04/22/2023 11:34:45 COVID-19, mRNA, LNP-S, PF, 100 mcg/0.5mL dose or 50 mcg/0.25mL dose 1 completed Cha Jones DO [address] [place] [address], [phone], [facility] 04/22/2023 11:34:45 COVID-19, mRNA, LNP-S, bivalent, PF, 50 mcg/0.5 mL or 25mcg/0.25 mL dose 2 completed Cha Jones DO [address] [place] [address], [phone], [facility] 04/22/2023 11:34:45 pneumococcal polysaccharide PPV23 8 completed Cha Jones DO [address] [place] [address], [phone], [facility] 04/22/2023 11:34:45 Pneumococcal conjugate PCV 13 9 completed Cha Jones DO [address] [place] [address], [phone], [facility] 04/22/2023 11:34:45 Influenza, high-dose, quadrivalent, PF 3 completed Delmy jeter [facility] 06/21/2024 09:00:08 COVID-19, mRNA, LNP-S, PF, 50 mcg/0.5 mL 3 completed Delmy jeter [facility] 06/21/2024 09:00:08 Pneumococcal conjugate PCV20, polysaccharide LWV190 conjugate, adjuvant, PF 4 completed Cha Jones DO [address] [place], [address], [facility] 04/23/2023 08:45:56 Influenza, split virus, trivalent, PF 4 completed PINA SMART steffany [facility] 12/28/2023 11:39:19 Past Encounters Encounter ID Performer Location Encounter Start Date Encounter Closed Date Diagnosis/Indication Diagnosis SNOMED-CT Code Diagnosis ICD10 Code Diagnosis IMO Codes Diagnosis Note [id number] Cha Jones DO [facility] ([facility] [address] [place] [address] 08/14/2022 08:51:29 08/14/2022 10:00:37 Type 2 diabetes mellitus 89538749 E11.69 E11.42 E11.22 a1c of 8.4 in May. pt has struggled with uncontroll ed and variable glucose levels for years. can be 70 up to 300. hard to control. pt has worked on diet and weight management . will repeat labs today. continue with podiatry. pt to continue meds: Glipizide 10mg and Lantus 32 units bid. will star Essential hypertension 87274449 I10 stable. conitnue: Amlodipine 10mg, Carvedilol 12.5mg bid, Hydralazin e 10mg tid, Lisinopril 40mg Ulcer of toe 961920406 L 97.509 currently healed. not seeing wound care anymore. Followed by Podiatry, Dr. Hensley. continues with diabetic shoes and daily foot care. Mixed hyperlipidemia 267 613621 E78.2 Stable. Will repeat labs. Continue rosuvastat in. Counseled on diet and exercise. Edema of l ower extremity 518930324 R60.0 concern for fluid overload. pt with hx of afib, I do not find hx of chf on available records. will get further records. pt to start lasix daily for 1 wk. limit salt. monitor HR and afib. Return to office with no improvemen t or any problems. Go to ER with severe worsening or severe problems. [id number] Cha Jones DO [facility] ([facility]) [address] [place] [id number] 12/24/2022 11:01:31 12/24/2022 13:53:03 Benign essential hypertension 5121358 I10 Hypercholesterolemia 136 33815 E78.00 Stable. Will repeat labs next appt. Continue Atorvastat in. Counseled on diet and exericse. Type 2 ciro betes mellitus 35206373 E11.69 E11.42 E11.22 A1c in july improved to 6.8.contin ue with podiatry. pt to continue meds: Glipizide 10mg and Lantus 32 units bid. will repeat labs. Essential hypertension 19785604 I10 Blood pressure getting low multiple times. We will decrease hydralazin e down to 25mg TID. conitnue: Amlodipine 10mg, Carvedilol 12.5mg bid, Lisinopril 40mg monitor blood pressure closely at home. [id number] JACQUI STRATTON [facility] [address] [place] [id number] 03/07/2023 11:53:03 03/14/2023 07:29:37 Viral screening 064362642 Z11.52 COVID-19 690914915 U07.1 [id number] Cha Jones DO [facility] ([facility]) [address] [place] [id number] 04/22/2023 10:30:43 04/22/2023 12:34:01 Essential hypertension 77640013 I10 Blood pressure getting low multiple times. We will decrease hydralazin e down to 25mg TID. continue: Amlodipine 10mg, Carvedilol 12.5mg bid, Lisinopril 40mg monitor blood pressure closely at home.- Continue to monitor, counseled on fluid intake, stay well hydrated, log BP and HR when having symptoms, also log glucose. Hypercholesterolemia 136 66220 E78.00 Stable. Continue Atorvastat in. Counseled on diet and exercise. Foot ulcer due to type 2 diabetes mellitus 6857489221 100 E11.621 04/22/23- healed, continues seeing Podiatry. Atrial fibrillation 4943 6004 I48.91 Continue Xarelto and Carvedilol , following with Cardiology . Type 2 crio betes mellitus 72825947 E11.69 E11.42 E11.22 04/22/23- A1c 7.2 on 12/24/22, will repeat lab today. Counseled on diet, exercise. Age relate d macular degeneration 526705109 H35.3290 Continue care with Ophthalmol ogist. Congestive heart failure 72184101 I11.0 Continue following with Cardiology . Chronic ki dney disease stage 3B 401649707 N18.32 E26.1 Labs today. Edema of l ower extremity 848800499 R60.0 04/22/23- continues Furosemide . Allergic rhinitis 303606 04 J30.9 Counseled continue nasal spray, daily allergy med Claritin/ Zyrtec, switch from what he is using now. Active or passive immunization 480307859 Z23 Flu vax UTD Dec 2022. Prevnar 20 today. [id number] Cha Jones DO [facility] [address] [place] [id number] 05/15/2023 10:21:46 05/15/2023 13:51:50 Type 2 diabetes mellitus 24834639 E11.69 E11.42 E11.22 glocose improved, will start CGMS. counseled Chronic ki dney disease stage 3B 656834698 N18.32 E26.1 improved slightly. counseled on fluid intake, diet, glucose management . Essential hypertension 85692553 I10 Blood pressure getting low multiple times. We will decrease hydralazin e down to 25mg BID. continue: Amlodipine 10mg, Carvedilol 12.5mg bid, Lisinopril 40mg monitor blood pressure closely at home.- Continue to monitor, counseled on fluid intake, stay well hydrated, log BP and HR when having symptoms, also log glucose. [id number] Cha Jones DO [facility] [address] [place] [id number] 06/10/2023 15:27:26 06/10/2023 16:47:08 Acute bronchitis 59610364 J20.9 Counseled continue Doxy, start Prednisone , Benzonatat e. Counseled Prednisone may increase glucose. [id number] Cha Jones DO [facility] ([facility]) [address] [place] [id number] 06/16/2023 09:40:54 06/16/2023 14:02:41 Type 2 diabetes mellitus 62137430 E11.69 E11.42 E11.22 06/16/23- Reviewed and discussed glucose log, improved until he started Prednisone , expect to come back down after Prednisone , continue current tx. Will try CGM sample today, Dexcom, insurance won't cover Kalani. Essential hypertension 43256973 I10 06/16/23- reviewed and discussed BP log, stable, continue current tx. [id number] Cha Jones DO [facility] [address] [place] [id number] 07/15/2023 10:59:07 07/15/2023 11:42:02 Type 2 diabetes mellitus 91593376 E11.69 E11.42 E11.22 07/15/23- Running 200's all [...] sample today, Dexcom, insurance won't cover Kalani. [id number] Cha Jones DO [facility] [address] [place] [id number] 07/22/2023 10:25:41 07/22/2023 12:06:36 Type 2 diabetes mellitus 29451780 E11.69 E11.42 E11.22 07/22/23- Tolerating CGM, feels [...] today, Dexcom, insurance won't cover Kalani. Hypokalemia 96289858 E87 .6 Continues Lasix, will refill Potassium. Adult heal th examination 832345128 Z00.00 Reviewed and discussed recent lab, elevated liver enzymes, Hepatitis screening today. Counseled on diet, exercise, weight loss. Hypercholesterolemia 136 46503 E78.00 Counseled decrease Rosuvastat in from 40mg to 20mg daily d/t liver enzymes. Liver enzy mes outside reference range 275951896 R94.5 Reviewed lab, Hepatitis screening today, repeat lab in 4 months. [id number] Cha Jones DO [facility]) [address] [place] [id number] 09/23/2023 10:43:22 09/23/2023 18:00:27 Type 2 diabetes mellitus 17104351 E11.69 E11.42 E11.22 09/23/23- Reviewed CGM readings, [...] Dexcom, insurance won't cover Kalani. Essential hypertension 46212474 I10 09/23/23- stable, continue current tx.06/16/23 - reviewed and discussed BP log, stable, continue current tx. [id number] JACQUI BROWN [facility] [address] [place] [id number] 10/05/2023 09:41:48 10/05/2023 12:13:36 Acute pansinusitis 2517136 J01.40 Discussed use of antibiotic . Take with food.May use Virgilio's nasal inserts and also apply on chest. Push oral fluids. Consider nasal saline rinses and otc decongesta nt.Use tylenol/mo raysa for reno. [id number] Cha Jones DO [facility]) [address] [place] [id number] 10/12/2023 11:30:35 10/12/2023 13:41:05 Acute bronchitis 16949907 J20.9 No significan t improvemen ts with Augmentin. Will switch to doxycyclin e and add prednisone . Counseled. Return with worsening. [id number] Cha Jones DO [facility]) [address] [place] [id number] 11/17/2023 11:02:02 11/17/2023 14:19:34 Hypokalemia 96828815 E87.6 11/17/23- Reviewed recent lab, Lasix 40mg daily and Potassium 20meq daily for 5 days. Counseled on use of Potassium when taking Lasix. Essential hypertension 53446752 I10 11/17/23- counseled resume Lisinopril 20mg daily, had stopped it after [facility] stay. 4- stable, continue current tx.06/16/23 - reviewed and discussed BP log, stable, continue current tx. Type 2 ciro betes mellitus 40455490 E11.69 E11.42 E11.22 11/17/23- A1c 7.4 yesterday, 11/16/23, up from 7.1 on 07/20/23, advised resume DM meds, was taken off these during [facility] stay. Counseled on diet, exercise.- Reviewed [...] sample today, Dexcom, insurance won't cover Kalani. Chronic ki dney disease stage 3B 244821426 N18.32 E26.1 monitoring . Congestive heart failure 84240477 I11.0 Echo per [facility] 11/14/23: Summary and Conclusion :- Left ventricle: Not well visualized . The cavity size is normal. Wallthickn ess is normal. Global systolic function is vigorous. The estimatede jection fraction is 65-70%. For Epic reporting: the left ventricula rejection fraction is 68% No diagnostic regional wall motion abnormalit manojdentifjania d. Interventr icular septum shows abnormal bouncy [...] worsening SOB. F/u next week, repeat lab. [id number] Cha Jones DO [facility] ([facility]) [address] [place] [phone] 11/24/2023 11:47:09 11/25/2023 11:01:59 Chronic kidney disease stage 3B [id number] N18.32 E26.1 monitoring . [id number] Cha Jones DO [facility] ([facility]) [address] [place] [phone] 11/25/2023 11:09:55 11/25/2023 17:47:32 Hypokalemia 41699646 E87.6 11/25/23- repeat lab with K+ 3.1, counseled take Potassium 20meq daily.11/16- Reviewed recent lab, Lasix 40mg daily and Potassium 20meq daily for 5 days. Counseled on use of Potassium when taking Lasix. Essential hypertension 02079807 I10 11/17/23- counseled resume Lisinopril 20mg daily, had stopped it after [facility] stay. 4- stable, continue current tx.06/16/23 - reviewed and discussed BP log, stable, continue current tx. Chronic ki dney disease stage 3B 759411993 N18.32 E26.1 monitoring . Congestive heart failure 65377034 I11.0 Echo per [facility] 11/14/23: Summary and Conclusion : - [...] 20mg daily with Potassium. F/u 1 month. [id number] Cha Jones DO [facility] ([facility]) [address] [place] [phone] 5 12/28/2023 10:19:43 12/28/2023 18:01:00 Hypokalemia 21386937 E87.6 12/28/23: pt has decreased KCL to 10meq daily. will repeat labs today 4- repeat lab with K+ 3.1, counseled take Potassium 20meq daily.11/16- Reviewed recent lab, Lasix 40mg daily and Potassium 20meq daily for 5 days. Counseled on use of Potassium when taking Lasix. Essential hypertension 85012684 I10 11/17/23- counseled resume Lisinopril 20mg daily, had stopped it after [facility] stay. 4- stable, continue current tx.06/16/23 - reviewed and discussed BP log, stable, continue current tx. Chronic ki dney disease stage 3B 504014909 N18.32 E26.1 monitoring , CR increased last visit, will repeat labs. counseled Congestive heart failure 25773053 I11.0 12/28/23: cotinue on furosemide and KCL. [...] SOB. F/u next week, repeat lab.Echo per [facility] 11/14/23: Summary and Conclusion : - [...] is 13mm Hg. Active or passive immunization 709045236 Z23 Flu vax UTD Dec 2022. Prevnar 20 today. Pain of bi lateral hip joints [id number] 0180665 M25.551 M25.552 pain appears to be from lower back, SI b/l per exam. not hip joints. counseled on exercises and stretching . consider xrays if not improving. [id number] Cha Jones DO [facility] ([facility]) [address] [place] [phone] 02/23/2024 09:56:23 02/24/2024 12:36:21 Essential hypertension 73457441 I10 11/17/23- counseled resume Lisinopril 20mg daily, had stopped it after [facility] hospital stay. 4- stable, continue current tx.06/16/23 - reviewed and discussed BP log, stable, continue current tx. 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 Hypercholesterolemia 136 41320 E78.00 Counseled decrease Rosuvastat in from 40mg to 20mg daily d/t liver enzymes. [id number] Cha Jones DO [facility] ([facility]) [address] [place] [phone] 5 03/01/2024 10:16:23 03/02/2024 14:15:42 Hypokalemia 18880353 E87.6 12/28/23: pt has decreased KCL to 10meq daily. will repeat labs today 4- repeat lab with K+ 3.1, counseled take Potassium 20meq daily.11/16- Reviewed recent lab, Lasix 40mg daily and Potassium 20meq daily for 5 days. Counseled on use of Potassium when taking Lasix. Essential hypertension 09960309 I10 03/01/24- Continue current tx, Lisinopril , refill Triamteren e.11/17/23- counseled resume Lisinopril 20mg daily, had stopped it after [facility] hospital stay. 4- stable, continue current tx.06/16/23 - reviewed and discussed BP log, stable, continue current tx. Chronic ki dney disease stage 3B 690990280 N18.32 E26.1 monitoring , reviewed and discussed renal function lab today. Congestive heart failure 69016882 I11.0 12/28/23: continue on furosemide and KCL. [...] SOB. F/u next week, repeat lab.Echo per [facility] 11/14/23: Summary and Conclusion : - [...] is 13mm Hg. Gastroesop hageal reflux disease 688475579 K21.9 Stable, refill Pantoprazo le. Type 2 ciro betes mellitus 03244125 E11.69 E11.42 E11.22 03/01/24- Reviewed and discussed A1c, counseled on diet, exercise. Continue current tx, Glipizide, Lantus.10/22 10/13- A1c 7.4 yesterday, 11/16/23, up from 7.1 on 07/20/23, advised resume DM meds, was taken off these during [facility] hospital stay. Counseled on diet, exercise.- Reviewed CGM [...] sample today, Dexcom, insurance won't cover Kalani. [id number] JACQUI STRATTON [facility] ([facility]) [address] [place] [address] 05/25/2024 10:34:49 05/25/2024 12:40:56 Cerebrovascular accident 661534355 I63.9 Recent hospitaliz ation. [id number] Cha Jones DO [facility]) [address] [place] [address] 06/02/2024 09:35:34 06/03/2024 13:12:00 CVA - cerebrovascular accident due to cerebral artery occlusion 531634903 I63.50 occurred 05/25/2024: with residual RUE and LLE weakness and mild to moderate dysarthria . Had ECHO and Carotid US in hospital.c ontinue on Xarelto and increased rosuvastat in. will add plavix for the next few wks.keep f/u neurology. Will order ST with MBS. Abnormal g ait due to muscle weakness 443950084 M62.81 s/p CVA that occurred 05/25/2024: with residual RUE and LLE weakness and mild to moderate dysarthria .contine PT and OT, order for walker. 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 will get MBS and ST. counseled [id number] Cha Jones DO [facility] ([facility]) [address] [place] [address] 06/21/2024 08:40:51 06/21/2024 14:05:57 Hypokalemia 30822170 E87.6 07/04/24: reviewed labs, stable.12/28/23: pt has [...] brovascular accident due to cerebral artery occlusion 947440636 I63.50 occurred 05/25/2024: with residual RUE and LLE weakness and mild to moderate dysarthria . Had ECHO and Carotid US in hospital.c ontinue on Xarelto and increased rosuvastat in. will add plavix for the next few wks.keep f/u neurology. Will order ST with MBS. Right barlow tid artery stenosis 2272154614 54700 I65.21 s/p endovascul ar stent may 2024 after 2nd CVA. Performed at [facility] donta ng well Chronic ki dney disease stage 3B 590164886 N18.32 E26.1 monitoring , reviewed and discussed renal function lab today. Essential hypertension 88621178 I10 06/21/24: continue lisinopril , hydralazin e, carvedilol and diazide.- Continue current tx, Lisinopril , refill Triamteren e.11/17/23- counseled resume Lisinopril 20mg daily, had stopped it after [facility] stay. 4- stable, continue current tx.06/16/23 - reviewed and discussed BP log, stable, continue current tx. Type 2 ciro betes mellitus 89634094 E11.69 E11.42 E11.22 03/01/24- Reviewed and discussed A1c, counseled on diet, exercise. Continue current tx, Glipizide, Lantus.10/22 10/13- A1c 7.4 yesterday, 11/16/23, up from 7.1 on 07/20/23, advised resume DM meds, was taken off these during [facility] stay. Counseled on diet, exercise.- Reviewed [...] current tx. Will try CGM sample today, [employer], insurance won't cover Kalani. Gastroesop hageal reflux disease 962226971 K21.9 06/21/24: worsening, will continue Pantoprazo le. will get MBS. 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 Chronic bronchitis 75591 004 J42 Congestive heart failure 29623696 I11.0 06/21/24: reviewed records as below. 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 Hypercholesterolemia 136 10605 E78.00 conitnue Rosuvastat in 40mg. will monitor LFTs. Age relate d macular degeneration 108096797 H35.3290 Continue care with Ophthalmol ogist. [id number] Cha Jones DO [facility] ([facility]) [address] [place] [phone] 07/04/2024 10:41:26 07/04/2024 12:24:48 Atrial fibrillation 33328267 I48.91 Continue Xarelto and Carvedilol , following with Cardiology . CVA - cere brovascular accident due to cerebral artery occlusion 009838534 I63.50 occurred 05/25/2024: with residual RUE and LLE weakness and mild to moderate dysarthria . Had ECHO and Carotid US in hospital. MBS and ST pending.co ntinue on Xarelto and increased rosuvastat in and plavix.uzma alcazar f/u neurology. Type 2 ciro betes mellitus 61535976 E11.69 E11.42 E11.22 07/04/24: some low glucose, will decrease lantus to 20u BID. monitor closely. f/u 1 mt. sooner with problems.1 05/02/23- Reviewed and discussed A1c, counseled on diet, exercise. Continue current tx, Glipizide, Lantus.10/22 10/13- A1c 7.4 yesterday, 11/16/23, up from 7.1 on 07/20/23, advised resume DM meds, was taken off these during [facility] stay. Counseled on diet, exercise.- Reviewed [...] won't cover Kalani. Primary bi liary cholangitis 21278605 K74.3 DX from [facility]ALEANO, Miri Gallo NP, 06/2024 with elevated Alk phos with + mitochondi ra M2 ab and JACQUE. started on Ursodiol. I reviewed records. continue urrsodiol. will monitor LFTs. counseled pt. [id number] Cha Jones DO [facility] ([facility]) [address] [place] [phone] 07/20/2024 16:27:28 07/25/2024 12:44:51 CVA - cerebrovascular accident due to cerebral artery occlusion 236586796 I63.50 07/20/24: Discussed MBS results, continue seeing ST, working on swallowing . occurred 05/25/2024: with residual RUE and LLE weakness and mild to moderate dysarthria .continue on Xarelto and increased rosuvastat in and plavix.uzma p f/u neurology. Difficulty sleeping 3013 49797 G47.9 [id number] 07/20/24: Counseled likely d/t increased stress and anxiousnes s r/t current state of health, will start Escitalopr am. Counseled on diagnosis, treatment options including medication s and possible side effects. Type 2 ciro betes mellitus 19868718 E11.69 E11.42 E11.22 07/20/24: Reviewed and discussed [...] DM meds, was taken off these during [facility] stay. Counseled on diet, exercise.- Reviewed [...] sample today, Dexcom, insurance won't cover Kalani. 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 6534892537 28136 I69.322 Closed fra cture of hip 444520905 S72.001S 4966138 [id number] Juancarlos Lassiter DO [facility] ([facility]) [address] [place] [address] 09/05/2024 13:24:33 09/12/2024 17:20:38 Bilateral lower limb edema 418751844 R60.0 [id number] Juancarlos Lassiter DO [facility] ([facility]) [address] [place] [phone] 09/15/2024 07:56:39 09/20/2024 14:25:30 Edema of lower extremity 909884928 R60.0 [id number] Juancarlos Lassiter DO [facility] ([facility]) [address] [place] [address] 09/22/2024 08:02:00 09/27/2024 08:13:45 Edema of lower extremity 547715015 R60.0 [id number] Juancarlos Lassiter [facility] ([facility]) [address] [place] [address] 11/03/2024 11:49:57 11/07/2024 17:46:59 Edema of lower extremity 052334349 R60.0 CVA - cere brovascular accident due to cerebral artery occlusion 043359653 I63.50 Congestive heart failure 39727879 I11.0 [id number] Junacarlos Lassiter [facility] ([facility]) [address] [place] [address] 12/01/2024 11:46:53 12/06/2024 10:05:32 Edema of lower extremity 360520336 R60.0 Type 2 ciro betes mellitus 97815900 E11.69 E11.42 E11.22 [id number] Juancarlos Lassiter [facility] ([facility]) [address] [place] [phone] 12/22/2024 12:38:28 12/27/2024 08:38:20 Pneumonia 319260248 J18.9 [id number] Health Concerns Section Related Observation LastModified by Organization Detai ls LastModified Time None Recorded Concern Status LastModified by Organization Details LastModified Time None Recorded Advance Directives Directive None Recorded Payers Insurance Date Sequence Insurance Name Policy Number Policy Mc Covered Member ID Mc Member ID Guarantor Name 12/22/2024 2 [employer] (MEDICARE SUPPLEMENT) Andrés Dumont [id number] Andrés Dumont 12/22/2024 1 [place] Andrés Dumont [id number] Andrés Dumont 06/18/2022 2 [employer] (INDEMNITY) Andrés Dumont [id number] Andrés Dumont 12/22/2024 [place] - [place] - [facility]-[id number] (MEDICARE) Andrés Dumont [id number] Andrés Dumont Notes Date Note Type Note Provider Name and Address Organization Details Recorded Time 5 text/html HypertensionReported by PatientHPIFor severity, patient reportsgrade 1 (130-139/80-89). For duration, patient reportshas noted for years. For alleviating factors, patient reportsmedication.ROS as noted in the HPI staff reports increased edema, progressively getting worse. Juancarlos Lassiter DO [address] [place] [address], [phone], [facility] 09/19/2024 18:08:33 5 text/html HypertensionReported by PatientHPIFor severity, patient reportsgrade 1 (130-139/80-89). For duration, patient reportshas noted for years. For alleviating factors, patient reportsmedication.ROS as noted in the HPI f/u on edmea. Juancarlos Lassiter DO [address] [place] [address], [phone], [facility] 09/26/2024 17:17:33 5 text/html HypertensionReported by PatientHPIFor severity, patient reportsgrade 1 (130-139/80-89). For duration, patient reportshas noted for years. For alleviating factors, patient reportsmedication.ROS as noted in the HPI check up, c/o not sleeping well and edema. Juancarlos Lassiter DO [address] [place] [address], [phone], [facility] 11/06/2024 14:27:34 5 text/html HypertensionReported by PatientHPIFor severity, patient reportsgrade 1 (130-139/80-89). For duration, patient reportshas noted for years. For alleviating factors, patient reportsmedication.ROS as noted in the HPI check up, c/o not sleeping well and edema. Juancarlos Lassiter DO [address] [place] [address], [phone], [facility] 12/05/2024 14:18:32 5 text/html HypertensionReported by PatientHPIFor severity, patient reportsgrade 1 (130-139/80-89). For duration, patient reportshas noted for years. For alleviating factors, patient reportsmedication.ROS as noted in the HPI ER follow up, seen for SOB. Juancarlos Lassiter, DO [address] [place] [address], [phone], [facility] [place] 12/26/2024 14:35:11
--- NOTE | 2024-12-27 09:24 | W.ED.NEUROSD ---
HPI - Neuro Symptoms/Deficit General: Chief Complaint: Neuro Symptoms/Deficit Stated Complaint: Possible Stroke Time Seen by Provider: 12/27/24 09:14 History of Present Illness: 79-year-old male presents emergency room as a stroke alert for the last known well 40 minutes prior to arrival, 8:30 AM. Initial NIH is 5. The patient is on Xarelto for atrial fibrillation has a history of previous strokes. Associated symptoms: Deny chest pain Related Data Home Medications ?Medication ?Instructions ?Recorded ?Confirmed pantoprazole 40 mg tablet,delayed 40 mg PO DAILY 11/19/20 12/27/24 release multivitamin (Multiple Vitamins 1 tab PO DAILY 03/28/24 12/27/24 tablet) insulin glargine 100 unit/mL (3 35 unit SUBCUT BID 05/17/24 12/27/24 mL) subcutaneous pen (Lantus Solostar U-100 Insulin) lisinopril 20 mg tablet 20 mg PO DAILY 05/17/24 12/27/24 potassium chloride 10 mEq 10 meq PO BID 06/10/24 12/27/24 tablet,extended release albuterol sulfate 90 mcg/actuation 2 puff inhalation .Q4-6H 07/23/24 12/27/24 aerosol inhaler clopidogrel 75 mg tablet 75 mg PO DAILY 07/23/24 12/27/24 ursodiol 300 mg capsule See Rx Instructions .Route .COMPLEX 07/23/24 12/27/24 acetaminophen 325 mg capsule 650 mg PO QID PRN Pain 12/26/24 12/27/24 amiodarone 200 mg tablet 200 mg PO DAILY 12/26/24 12/27/24 cetirizine 5 mg tablet (Allergy 5 mg PO QPM 12/26/24 12/27/24 Relief (cetirizine)) furosemide 20 mg tablet (Lasix) 40 mg PO DAILY PRN Edema 12/26/24 12/27/24 sertraline 100 mg tablet 100 mg PO BEDTIME 12/26/24 12/27/24 spironolactone 50 mg tablet 50 mg PO DAILY 12/26/24 12/27/24 albuterol sulfate 2.5 mg/3 mL 2.5 mg inhalation Q4H PRN sob 12/27/24 12/27/24 (0.083 %) solution for nebulization bisacodyl 10 mg rectal suppository 10 mg [place] DAILY PRN constipation 12/27/24 12/27/24 budesonide 32 mcg/actuation nasal 1 spray intranasal BID 12/27/24 12/27/24 spray hydrocodone 5 mg-acetaminophen 325 1 tab PO Q6H 12/27/24 12/27/24 mg tablet insulin lispro 100 unit/mL 12 unit SUBCUT TID type 2 diabetes 12/27/24 12/27/24 subcutaneous pen (Humalog KwikPen (U-100) Insulin) melatonin 3 mg tablet 3 mg PO BEDTIME 12/27/24 12/27/24 metolazone 5 mg tablet See Rx Instructions .Route .COMPLEX 12/27/24 12/27/24 peg 3350-bowel 2,two part prep See Rx Instructions .Route .COMPLEX 12/27/24 12/27/24 rivaroxaban 20 mg tablet (Xarelto) 20 mg PO QPM 12/27/24 12/27/24 rosuvastatin 40 mg tablet 40 mg PO BEDTIME 12/27/24 12/27/24 sodium phosphates 19 gram-7 118 ml [place] DAILY PRN Constipation 12/27/24 12/27/24 gram/118 mL enema (Fleet Enema) tamsulosin 0.4 mg capsule (Flomax) 0.4 mg PO BEDTIME 12/27/24 12/27/24 Previous Rx's ?Medication ?Instructions ?Recorded carvedilol 12.5 mg tablet 12.5 mg PO BID #180 tabs 03/28/24 Allergies Allergy/AdvReac Type Severity Reaction Status Date / Time lovastatin Allergy RASH Verified 12/26/24 14:36 blood Allergy Unknown Krishnah's Uncoded 12/26/24 14:36 witness Review of Systems Const: Denies: fever(s) or chills Card: Denies: chest pain Resp: Denies: dyspnea GI: Denies: abdominal pain : Denies: dysuria, urinary frequency or urinary urgency Musc: Denies: neck pain or back pain Skin/Breast: Denies: rash PFSH ED PFSH: Medical History Hypertension Anticoagulation adequate with anticoagulant therapy Atrial fibrillation with controlled ventricular rate BPH (benign prostatic hyperplasia) Mass of right kidney Diabetes mellitus Acute cholecystitis Callus of foot Chronic ulcer of great toe of right foot, limited to breakdown of skin Hammertoe Peripheral arterial disease Diabetic peripheral neuropathy associated with type 2 diabetes mellitus Diabetes mellitus GERD (gastroesophageal reflux disease) Venous insufficiency Prostatitis, acute Acute cystitis with hematuria Surgical History Hx of cholecystectomy Status post right inguinal hernia repair Status post colonoscopy (12/13/20) descending colon polyp H/O esophagogastroduodenoscopy (12/13/20) normal Hx of tonsillectomy Family History Mother , AT AGE 73 Cancer COLON Father , AT AGE 50 Diabetes Social History Smoking and tobacco/nicotine status: former use of tobacco/nicotine (quit 1974) Alcohol intake: current Alcohol intake frequency: holidays/special occasions only Marital status: Current occupational status: retired NIH stroke score NIHSS: Level Of Consciousness - 1a: 0 Level Of Consciousness Questions - 1b: Both Correct Level Of Consciousness Commands - 1c: Both Correct Best Gaze - 2: Normal Visual Grant - 3: Partial Hemianopia Facial Palsy - 4: Minor Paralysis Motor Arm Right - 5: No Drift Motor Arm Left - 5: No Drift Motor Leg Right - 6: No Drift Motor Leg Left - 6: No Drift Limb Ataxia - 7: Present In One Limb Sensory - 8: Mild To Moderate Loss Best Language - 9: No Aphasia Dysarthia - 10: Normal Extinction And Inattention - 11: 1 Score: Total Score: 5 Physical Exam Const: ORIENTATION/CONSCIOUSNESS: Yes awake HENMT: COMMON NORMALS: normocephalic, atraumatic and hearing grossly normal bilaterally HEAD & SCALP: normocephalic and atraumatic Resp: COMMON NORMALS: normal respiratory effort, No retractions, No use of accessory muscles and clear to auscultation bilaterally AUSCULTATION: clear to auscultation bilaterally Cardio: COMMON NORMALS: regular rate and No murmurs present (Cardio) RATE: regular rate RHYTHM: abnormal rhythm irregularly irregular GI: COMMON NORMALS: Soft to palpation and No hepatosplenomegaly present AUSCULTATION: Yes normoactive bowel sounds PALPATION: Yes Soft to palpation, No Tenderness to palpation present (GI), No Guarding due to palpation present (GI) and Yes No hepatosplenomegaly present Extremity: COMMON NORMALS: normal to inspection, capillary refill normal, no clubbing, cyanosis or edema, no calf tenderness and no pedal edema Skin: COMMON NORMALS: no rashes or lesions noted GENERAL SKIN EXAM: no rashes or lesions noted Course Vital Signs: Vital signs: Vital Signs Temperature 97.0 F L 12/27/24 15:45 Pulse Rate 64 12/27/24 16:39 Respiratory Rate 17 12/27/24 16:39 Blood Pressure 155/64 12/27/24 15:45 Pulse Oximetry 95 12/27/24 16:39 Oxygen Delivery Me thod Room Air 12/27/24 16:39 MDM - Neuro Symptoms/Deficit Medical Decision Making NIH of 5 see scoring above. Patient is on Xarelto. I did the first pharmacy search it showed that he had not filled it since April 2024 however he is at a long-term and we confirmed with them that he is still taking it regularly. As such he is not a candidate for thrombolytics. His stroke score is below 6 so he is not a candidate for embolectomy. Discussed with [facility] on-call for stroke. Medical Records I reviewed the patient's medical records. Lab Data I reviewed the patient's lab results. 12/27/24 09:36 12/27/24 09:[address] 12/27/24 09:15 IMPRESSION: 1. No acute intracranial hemorrhage or edema. 2. Advanced cerebral and cerebellar atrophy with small vessel disease. 3. Remote posterior RIGHT parietal lobe infarct. 4. New sinusitis involving the ethmoid, sphenoid and maxillary sinuses. 5. Advanced atherosclerotic plaque in the intracranial carotid and vertebral arteries. Notified Alexis Barillas DO at 12/27/2024 9:29 AM. Laboratory Results WBC 13.80 10^3/uL (3.29-11.43) H 12/27/24 09:36 RBC 3.86 10^6/uL (3.85-5.65) 12/27/24 09:36 Hgb 10.90 g/dL (11.27-16.99) L 12/27/24 09:36 Hct 34.4 % (37-53) L 12/27/24 09:36 MCV 89.1 fl (82-101) 12/27/24 09:36 MCH 28.2 pg (27-33) 12/27/24 09:36 MCHC 31.7 g/dL (30-55) 12/27/24 09:36 RDW 16.8 % (12.1-15.1) H 12/27/24 09:36 Plt Count 434 10^3/cmm (157-399) H 12/27/24 09:36 MPV 9.0 fL (7.4-10.4) 12/27/24 09:36 Neut % (Auto) 78.8 % 12/27/24 09:36 Lymph % (Auto) 7.8 % 12/27/24 09:36 Preston % (Auto) 10.0 % 12/27/24 09:36 Eos % (Auto) 1.3 % 12/27/24 09:36 Baso % (Auto) 0.1 % 12/27/24 09:36 Neut # (Auto) 10.87 10^3/uL (1.8-7.7) H 12/27/24 09:36 Lymph # (Auto) 1.1 10^3/uL (0.8-4.8) 12/27/24 09:36 Preston # (Auto) 1.4 10^3/uL (0.2-0.9) H 12/27/24 09:36 Eos # (Auto) 0.2 10^3/uL (0.0-0.8) 12/27/24 09:36 Baso # (Auto) 0.0 10^3/uL (0.0-0.1) 12/27/24 09:36 Nucleated RBC % (auto) 0 % 12/27/24 09:36 Nucleated RBCs # 0.0 /100WBC 12/27/24 09:36 PT 21.60 SECONDS (12.1-14.9) H 12/27/24 09:36 INR 1.76 (0.8-1.2) H 12/27/24 09:36 APTT 36.8 SECONDS (23.9-36.7) H 12/27/24 09:36 Sodium 136 mmol/L (136-145) 12/27/24 09:36 Potassium 4.6 mmol/L (3.5-5.1) 12/27/24 09:36 Chloride 99 mmol/L (98-107) 12/27/24 09:36 Carbon Dioxide 24 mmol/L (22-29) 12/27/24 09:36 Anion Gap 17.6 (5-19) 12/27/24 09:36 BUN 94 mg/dL (8-23) H* D 12/27/24 09:36 Creatinine 3.0 mg/dL (0.7-1.2) H 12/27/24 09:36 GFR Calculation Not Reportable 12/27/24 09:36 Glucose 122 mg/dL (65-115) H 12/27/24 09:36 Calculated Osmolality 312 mOsm/kg (285-295) H 12/27/24 09:36 Calcium 8.5 mg/dL (8.5-10.5) 12/27/24 09:36 Total Bilirubin 0.3 mg/dL (0.15-1.2) 12/27/24 09:36 AST 17 U/L (0-40) 12/27/24 09:36 ALT 17 U/L (0-41) 12/27/24 09:36 Alkaline Phosphatase 123 U/L (40-130) 12/27/24 09:36 Total Protein 6.7 g/dL (6.6-8.7) 12/27/24 09:36 Albumin 2.8 g/dL (3.5-5.2) L 12/27/24 09:36 Globulin 3.9 g/dL (1.3-4.6) 12/27/24 09:36 All radiology interpretation(s) finalized by discharge EKG Data EKG 1: Interpretation: EKG 12/27/2024 9:26 AM atrial fibrillation with a controlled response rate of 56 QTc [address] changes noted EKG compared to 12/16/2024 Discharge Plan Discharge Patient Disposition: Admitted As Inpatient Admit Provider: Wil Lopez Clinical Impression: Cerebrovascular accident, DANILO (acute kidney injury), Atrial fibrillation with controlled ventricular rate, Anticoagulation adequate with anticoagulant therapy, Multiple cerebral infarctions Condition: Stable Coding Level of Care Code ED Enrollment Management Vice President for Lois Greco
[2024-12-27 09:44] LABS: Hematocrit 34.4 % (37-53); Hemoglobin 10.90 g/dL (11.27-16.99); Mean Corpuscular HGB Conc 31.7 g/dL (30-55); Mean Corpuscular Hemoglobin 28.2 pg (27-33); Mean Corpuscular Volume 89.1 fl (82-101); Nucleated Red Blood Cells % 0 %; Platelet Count 434 10^3/cmm (157-399); Red Blood Count 3.86 10^6/uL (3.85-5.65); White Blood Count 13.80 10^3/uL (3.29-11.43)
--- NOTE | 2024-12-27 09:50 | PC.NURSE ---
Called tele Stroke @ [phone]
[2024-12-27 10:06] LABS: INR 1.76 (0.8-1.2); Prothrombin Time 21.60 SECONDS (12.1-14.9)
[2024-12-27 10:07] LABS: Partial Thromboplastin Time 36.8 SECONDS (23.9-36.7)
[2024-12-27 10:12] LABS: Alanine Aminotransferase 17 U/L (0-41); Albumin Level 2.8 g/dL (3.5-5.2); Alkaline Phosphatase 123 U/L (40-130); Anion Gap 17.6 (5-19); Aspartate Amino Transferase 17 U/L (0-40); Calcium 8.5 mg/dL (8.5-10.5); Carbon Dioxide 24 mmol/L (22-29); Chloride 99 mmol/L (98-107); Creatinine Clr Calc Pharmacy 27.2806; Globulin 3.9 g/dL (1.3-4.6); Glucose 122 mg/dL (65-115); Osmolality Calculated 312 mOsm/kg (285-295); Potassium 4.6 mmol/L (3.5-5.1); Sodium 136 mmol/L (136-145); Total Protein 6.7 g/dL (6.6-8.7)
[2024-12-27 10:14] LABS: Blood Urea Nitrogen 94 mg/dL (8-23)
--- NOTE | 2024-12-27 11:29 | PM.HP ---
Providers/Chief Complaint Primary Care Provider: Humberto Griggs DO Chief Complaint: Possible Stroke History of Present Illness Andrés Dumont is a 79 year old gentleman with history of atrial fibrillation on anticoagulation (Xarelto), hypertension, type 2 diabetes mellitus, peripheral artery disease, gastroesophageal reflux disease, and benign prostatic hyperplasia, residing at a nursing facility, was brought to the emergency department for acute neurologic symptoms including facial droop, difficulty using the arm/hand, and trouble seeing. A stroke code was activated; initial National Institutes of Health Stroke Scale (NIHSS) was 5. Neurology and emergency medicine evaluated and determined he was not a candidate for thrombolytics. Prior history notable for cerebrovascular accident and right carotid artery stent (believed right-sided, with stent card available; performed at [facility] by Dr. Stafford, timing possibly late last year). Reports recent sinus infection about two weeks ago treated with antibiotics and steroids; those have been discontinued. Nursing facility planned wound care visit today for right leg wound. Denies recent fever, chills, sore throat, vomiting, diarrhea, rash, or recent falls. Notes neck pain over the past few days, improved; neck pain was advised as not typical of stroke. Blood pressures have been running lower lately per family; historically had high blood pressure. Diabetes regimen includes rapid-acting insulin and insulin glargine (Lantus); A1C not known, nursing facility performs blood work. Uses acetaminophen (Tylenol) as needed for pain. Former smoker; drinks very little alcohol; denies illicit drug use. Identifies as a Jehovah?s Witness and declines blood transfusions. Review of Systems Const: Denies: fever(s), chills, body aches or malaise ENMT: Denies: throat pain Card: Denies: chest pain, edema, pre-syncope or dyspnea on exertion Resp: Reports: other (Bronchitis, sinusitis 2 weeks ago); Denies: dyspnea, productive cough, change in phlegm color or hemoptysis GI: Denies: abdominal pain, nausea, vomiting, diarrhea, constipation, hematochezia or melena : Denies: flank pain, difficulty urinating, urinary frequency or hematuria Musc: Denies: back pain, joint swelling or joint redness Skin/Breast: Denies: rash or new lesions Neuro: Reports: weakness in extremities, lack of coordination, dizziness and other (Facial droop); Denies: headache(s) or confusion Medications/Allergies Home Medications ?Medication ?Instructions ?Recorded ?Confirmed ?Last Taken ?Type pantoprazole 40 mg tablet,delayed 40 mg PO DAILY 11/19/20 12/27/24 12/27/24 06:45 History release carvedilol 12.5 mg tablet 12.5 mg PO BID #180 tabs 03/28/24 12/27/24 12/27/24 06:45 Rx multivitamin (Multiple Vitamins 1 tab PO DAILY 03/28/24 12/27/24 12/27/24 06:45 History tablet) insulin glargine 100 unit/mL (3 35 unit SUBCUT BID 05/17/24 12/27/24 12/27/24 08:05 History mL) subcutaneous pen (Lantus Solostar U-100 Insulin) lisinopril 20 mg tablet 20 mg PO DAILY 05/17/24 12/27/24 12/27/24 06:45 History potassium chloride 10 mEq 10 meq PO BID 06/10/24 12/27/24 12/27/24 06:45 History tablet,extended release albuterol sulfate 90 mcg/actuation 2 puff inhalation .Q4-6H 07/23/24 12/27/24 Unknown History aerosol inhaler clopidogrel 75 mg tablet 75 mg PO DAILY 07/23/24 12/27/24 12/27/24 06:45 History ursodiol 300 mg capsule See Rx Instructions .Route .COMPLEX 07/23/24 12/27/24 12/27/24 06:45 History acetaminophen 325 mg capsule 650 mg PO QID PRN Pain 12/26/24 12/27/24 12/24/24 20:05 History amiodarone 200 mg tablet 200 mg PO DAILY 12/26/24 12/27/24 12/27/24 06:45 History cetirizine 5 mg tablet (Allergy 5 mg PO QPM 12/26/24 12/27/24 12/26/24 19:40 History Relief (cetirizine)) furosemide 20 mg tablet (Lasix) 40 mg PO DAILY PRN Edema 12/26/24 12/27/24 12/27/24 06:45 History sertraline 100 mg tablet 100 mg PO BEDTIME 12/26/24 12/27/24 12/26/24 19:40 History spironolactone 50 mg tablet 50 mg PO DAILY 12/26/24 12/27/24 12/27/24 06:45 History albuterol sulfate 2.5 mg/3 mL 2.5 mg inhalation Q4H PRN sob 12/27/24 12/27/24 Unknown History (0.083 %) solution for nebulization bisacodyl 10 mg rectal suppository 10 mg [place] DAILY PRN constipation 12/27/24 12/27/24 Unknown History budesonide 32 mcg/actuation nasal 1 spray intranasal BID 12/27/24 12/27/24 12/27/24 06:45 History spray hydrocodone 5 mg-acetaminophen 325 1 tab PO Q6H 12/27/24 12/27/24 12/25/24 12:05 History mg tablet insulin lispro 100 unit/mL 12 unit SUBCUT TID type 2 diabetes 12/27/24 12/27/24 12/27/24 07:35 History subcutaneous pen (Humalog KwikPen (U-100) Insulin) melatonin 3 mg tablet 3 mg PO BEDTIME 12/27/24 12/27/24 12/26/24 19:40 History metolazone 5 mg tablet See Rx Instructions .Route .COMPLEX 12/27/24 12/27/24 Unknown History peg 3350-bowel 2,two part prep See Rx Instructions .Route .COMPLEX 12/27/24 12/27/24 12/24/24 08:40 History rivaroxaban 20 mg tablet (Xarelto) 20 mg PO QPM 12/27/24 12/27/24 12/26/24 16:10 History rosuvastatin 40 mg tablet 40 mg PO BEDTIME 12/27/24 12/27/24 12/26/24 19:40 History sodium phosphates 19 gram-7 118 ml [place] DAILY PRN Constipation 12/27/24 12/27/24 Unknown History gram/118 mL enema (Fleet Enema) tamsulosin 0.4 mg capsule (Flomax) 0.4 mg PO BEDTIME 12/27/24 12/27/24 12/26/24 19:40 History Allergies Allergy/AdvReac Type Severity Reaction Status Date / Time lovastatin Allergy RASH Verified 12/26/24 14:36 blood Allergy Unknown Jehovah's Uncoded 12/26/24 14:36 witness PFSH Acute PFSH: Medical History Hypertension Anticoagulation adequate with anticoagulant therapy Atrial fibrillation with controlled ventricular rate BPH (benign prostatic hyperplasia) Mass of right kidney Diabetes mellitus Acute cholecystitis Callus of foot Chronic ulcer of great toe of right foot, limited to breakdown of skin Hammertoe Peripheral arterial disease Diabetic peripheral neuropathy associated with type 2 diabetes mellitus Diabetes mellitus GERD (gastroesophageal reflux disease) Venous insufficiency Prostatitis, acute Acute cystitis with hematuria Surgical History Hx of cholecystectomy Status post right inguinal hernia repair Status post colonoscopy (12/13/20) descending colon polyp H/O esophagogastroduodenoscopy (12/13/20) normal Hx of tonsillectomy Family History Mother , AT AGE 73 Cancer COLON Father , AT AGE 50 Diabetes Social History Smoking and tobacco/nicotine status: former use of tobacco/nicotine (quit 1974) Alcohol intake: current Alcohol intake frequency: holidays/special occasions only Marital status: Current occupational status: retired Vitals/I&O/Wt Last Vital Signs Temp 97.9 F 12/27/24 09:15 Pulse 62 12/27/24 10:21 Resp 16 12/27/24 10:21 BP 112/55 12/27/24 10:21 Pulse Ox 98 12/27/24 10:21 O2 Del Method Room Air 12/27/24 09:15 Weight last 48 hrs Weight 114.305 kg Physical Exam Narrative: Accompanied by his and later daughter. Const: COMMON NORMALS: patient oriented x3 and alert GENERAL APPEARANCE: cooperative ORIENTATION/CONSCIOUSNESS: Yes awake HENMT: COMMON NORMALS: oropharynx normal Neck/C-Spine: COMMON NORMALS: no JVD Resp: COMMON NORMALS: normal respiratory effort and clear to auscultation bilaterally AUSCULTATION: clear to auscultation bilaterally Cardio: COMMON NORMALS: no JVD, regular rhythm, S1 normal heart sound present, S2 normal heart sound present and No murmurs present (Cardio) RHYTHM: regular rhythm HEART SOUNDS: S1 normal heart sound present and S2 normal heart sound present GI: COMMON NORMALS: Normal to inspection, nondistended, normoactive bowel sounds present, Soft to palpation and non-tender PALPATION: Yes Soft to palpation Extremity: COMMON NORMALS: no joint enlargement and no pedal edema Neuro: COMMON NORMALS: patient oriented x3 and moves all extremities SENSORIUM/ORIENTATION: Yes alert OTHER: He is awake and alert, pleasant, responsive. Her left side facial droop. Does track horizontally. FNF normal. Visual field somewhat difficult to assess due to him turning his head, although overall appears to be full to confrontation. No visual extinction. On light touch reports symmetrical sensation bilaterally. Does have sensory extinction on the left. No upper or lower extremity drift. Skin: COMMON NORMALS: no rashes or lesions noted GENERAL SKIN EXAM: no rashes or lesions noted Data 12/27/24 09:36 12/27/24 09:36 A&P Assessment and plan 1. Stroke: Stroke code activated; initial NIHSS 5; neurology determined not a candidate for thrombolytics. CT head showed no intracranial hemorrhage, advanced cerebral/cerebellar atrophy with small vessel disease, remote right parietal infarct, sinusitis, and advanced atherosclerotic plaque in intracranial carotid and vertebral arteries. Reviewed vitals, CBC, INR, CMP, head CT, ED provider note, discussed with ED provider. - Obtain carotid duplex ultrasound of the neck (given prior right carotid stent and prior cerebrovascular accident) - Obtain transthoracic echocardiogram (TTE) - Monitor telemetry - Monitor blood pressures - Permissive hypertension for now - Physical therapy (PT), occupational therapy (OT), and speech therapy (ST) assessments - Cont Xarelto, Plavix. Consider addition of aspirin 81 mg daily. Consider risk of bleeding. Will discuss with neurology provider. - Continue high-intensity statin Follow-up with neurology. Plan: Atrial fibrillation on anticoagulation : History of atrial fibrillation; currently on Xarelto. - Continue Xarelto (rivaroxaban) Type 2 diabetes mellitus : Diabetes managed with rapid-acting insulin and insulin glargine (Lantus); A1C not available. - Check hemoglobin A1C as part of standard workup (to assess diabetes control) Peripheral artery disease : History of PAD. Chronic kidney disease : Reported baseline creatinine 1.5?3; blood pressure medications discussed in context of renal clearance by history. - Monitor blood pressures. Caution with antihypertensives. Right carotid artery stent (history) : Right-sided carotid stent per patient/family and stent card. - Obtain carotid duplex ultrasound of the neck Right leg wound : Was scheduled for wound care today per nursing facility. Speech/swallow safety assessment need : Risk of aspiration discussed in context of stroke. - Speech therapy assessment; bedside swallow evaluation per nursing, with formal assessment if concerns Follow-up : Neurology to reassess after inpatient workup. - Benefit from follow-up with neurology PDMP PDMP Reviewed: Not Reviewed Attestations Medical Necessity Statement*: Please observation for additional assessment management after acute CVA. and High MDM includes amount and/or complexity of data reviewed/ordered [ previous or external records, resulted lab(s)/test(s), ordered lab(s)/test(s) and other healthcare professional discussion] and described risk of complication, morbidity or mortality of management as documented Diagnoses Stroke I63.9
[2024-12-27] MEDS: insulin glargine 100 units/1 mL 35 UNIT SUBCUT (18:07)
[2024-12-27] MEDS: HYDROcodone-acetaminophen 5-325 mg Tablet 1 TAB PO (18:07)
[2024-12-27] MEDS: MELATONIN 3 MG TABLET PO (21:20)
[2024-12-28] VITALS (8 sets, daily range): BP systolic 103–145; BP diastolic 55–65; PULSE 64–72; RESP 16–18; TEMP 36.4–37.1; O2SAT 94–98
[2024-12-28] MEDS: HYDROcodone-acetaminophen 5-325 mg Tablet 1 TAB PO ×4 (00:35→17:45)
[2024-12-28 04:54] LABS: Hematocrit 31.2 % (37-53); Hemoglobin 9.90 g/dL (11.27-16.99); Mean Corpuscular HGB Conc 31.7 g/dL (30-55); Mean Corpuscular Hemoglobin 28.0 pg (27-33); Mean Corpuscular Volume 88.1 fl (82-101); Nucleated Red Blood Cells % 0 %; Platelet Count 422 10^3/cmm (157-399); Red Blood Count 3.54 10^6/uL (3.85-5.65); White Blood Count 13.27 10^3/uL (3.29-11.43)
[2024-12-28 05:16] LABS: Estmated Average Glucose 157; Hemoglobin A1C 7.1 % (4.0-6.0)
[2024-12-28 05:17] LABS: Anion Gap 18.8 (5-19); Calcium 8.1 mg/dL (8.5-10.5); Carbon Dioxide 23 mmol/L (22-29); Chloride 99 mmol/L (98-107); Creatinine Clr Calc Pharmacy 24.2779; Glucose 189 mg/dL (65-115); Osmolality Calculated 316 mOsm/kg (285-295); Potassium 4.8 mmol/L (3.5-5.1); Sodium 136 mmol/L (136-145)
[2024-12-28 05:21] LABS: Cholesterol 101 mg/dL (0-200); HDL Cholesterol 39 mg/dL (60-100); Triglycerides 90 mg/dL (0-150)
[2024-12-28 05:28] LABS: Blood Urea Nitrogen 95 mg/dL (8-23)
[2024-12-28] MEDS: insulin glargine 100 units/1 mL 35 UNIT SUBCUT ×2 (05:52→17:42)
--- NOTE | 2024-12-28 06:00 | USCV_ITS ---
Tim Andrés Age: 79 Gender: M : 1945 Exam Date: 12/28/2024 09:18 Ordering Phys: Wil Lopez MD Technologist: Exam Location: [facility] [place] Indication: cva Risk Factors: Previous Vascular Surgery: Right Brachial BP: / Left Brachial BP: / Right Left Velocity (cm/s) Spectral Plaque Velocity (cm/s) Spectral Plaque Syst/Diast Broadening Syst/Diast Broadening 131.90/0.00 Prox CCA 74.50 / 0.00 133.50/0.00 Mid CCA 99.40 / 10.70 101.20/0.00 Distal CCA 77.60 / 0.00 98.50/ 0.00 Prox ICA 48.10 / 7.40 87.30/ 6.20 Mid ICA 70.70 / 14.90 62.70/ 7.70 Distal ICA 49.60 / 0.00 56.00 ECA 66.00 1.00 ICA/CCA 0.90 Antegrade Vertebral Antegrade 39.00/ 0.00 cm/s 23.00/ 9.00 cm/s Tri Subclavian Tri 132.1 88.80 0 FINDINGS hx of rt cca stent CONCLUSIONS Right ICA stenosis <50%. Mild atheromatous plaque right carotid bulb/ICA. Left ICA stenosis <50%. Mild atheromatous plaque left carotid bulb/ICA. Normal antegrade Doppler flow noted in the right vertebral artery. Normal antegrade Doppler flow noted in the left vertebral artery. Devonte Baird MD (Electronically Signed) Final Date: 28 December 2024 12:42 S
--- NOTE | 2024-12-28 08:00 | MR_ITS ---
WS: [id number] MRI BRAIN WITHOUT CONTRAST HISTORY: cva COMPARISON: 05/17/2024, CT head 12/27/2024 TECHNIQUE: Diffusion imaging, multiplanar T1, T2 and FLAIR imaging obtained. Normal diffusion imaging. Moderate symmetric atrophy with confluent periventricular and subcortical white matter hyperintensities. There has been a mild progression in the white matter signal changes since 05/17/2024. No hemorrhage. No midline shift. Mild prior ischemic changes in the guzman, bilateral. Mild bilateral hippocampal atrophy. Ventricles and extra-axial spaces are prominent on the basis of atrophy. Remote RIGHT parietal infarct. Normal flow voids. No inferior displacement of cerebellar tonsils. The sella turcica and pituitary gland are unremarkable. Dural venous sinuses and [place] of [place] demonstrate no abnormality on this unenhanced studies. Paranasal sinuses: Heterogeneous opacification of the maxillary, sphenoid and ethmoid air cells. Mastoid air cells: Normal. Calvarium and scalp: Intact. MR/MR head wo con* [id number] IMPRESSION: 1. Normal diffusion imaging. No acute infarct. Remote RIGHT posterior parietal infarct. 2. Moderate cerebral atrophy with confluent periventricular white matter braxton es. Mild progression of white matter disease since 05/17/2024. 3. Mild hippocampal atrophy. 4. No hemorrhage. 5. Pansinusitis. Sinusitis has progressed since 05/17/2024.
--- NOTE | 2024-12-28 09:18 | PC.CHAP ---
Pastoral Care Encounter/Spiritual Assessment Type of Contact [] Declined mid level net developer visit [] Patient/Family/Request visit [] Outpatient visit [] Follow-up visit [] Physician referral [] Code/Alert [x] Routine visit [] Staff referral [] Actively dying [] Patient sleeping [x] Family support [] [] Out of room [] Palliative care [] [] Receiving care in room [] Pre-surgical visit [] Trauma [] Long length of stay [] ICU visit [x] Other:Jehovas Witness. Relational/Emotional Strength [x] Patient feels connected with others/family/visitors/staff [] Distress [] Loneliness/isolation [] Abandonment Spirituality of Patient [x] Person of Marta [x] Attends Scientology of their Marta [x] Believes in Prayer [x] Reads Bible or Jehovah'S Witness materials [] There are Spiritual issues to be addressed Optical Glass Wet Inspector Interventions [] Prayer [x] Active listening [x] Non-anxious presence [x] Spiritual/emotional support [] Crisis/trauma care [] Spiritual counseling [] Bereavement support [] Provided bereavement packet [] Provided Bible/devotional materials [] Provided toy/stuffed animal, coloring book to patient or family member [] Provided Communion [] Anointing/[place] [] Salvation [x] Completed spiritual assessment [] Other: Impact on Illness or Injury [] Angry [] Fearful [] Anxious [] Often cries [] Exhaustion [] Unable to work [] Unable to attend nondenominational [] Unable to walk/stand [] Unable to read [] Unable to drive [] Unable to eat/drink [] Unable to sleep [] Unable to be with family [] Patient intubated [] Other: Summary Time spent with patient 5 min
--- NOTE | 2024-12-28 09:27 | PC.NURSE ---
destination imagination coordinator rounds at 0815- patient appears to be sleeping, spoke with and son, they already have the stroke education book from ED. States that pt has just been very tired since yesterday, but doing well as far as the new stroke symptoms go.
--- NOTE | 2024-12-28 11:11 | PM.PN ---
Subjective Subjective: He states he is overall doing all right today. His family did noted he has been getting intermittently sleepy. He does wake up and respond well during our visit. He denies any worsening symptoms of depression recently. Currently denies any further vision changes, dizziness, or additional new neurologic symptoms. Vitals/I&O/Wt Last Vital Signs Temp 98.2 F 12/28/24 07:54 Pulse 70 12/28/24 09:05 Resp 16 12/28/24 09:05 BP 121/63 12/28/24 07:54 Pulse Ox 95 12/28/24 09:05 O2 Del Method Room Air 12/28/24 09:05 12/27/24 12/28/24 12/28/24 22:59 06:59 14:59 Intake Total 480 / 1480 360 / 360 Output Total 200 / 200 Balance 280 / 1280 360 / 360 Weight last 48 hrs Weight 116.346 kg Weight 114.305 kg Physical Exam Narrative: Accompanied by his family including his Const: COMMON NORMALS: patient oriented x3 and alert GENERAL APPEARANCE: cooperative ORIENTATION/CONSCIOUSNESS: Yes awake HENMT: COMMON NORMALS: oropharynx normal Neck/C-Spine: COMMON NORMALS: no JVD Resp: COMMON NORMALS: normal respiratory effort and clear to auscultation bilaterally AUSCULTATION: clear to auscultation bilaterally Cardio: COMMON NORMALS: no JVD, regular rhythm, S1 normal heart sound present, S2 normal heart sound present and No murmurs present (Cardio) RHYTHM: regular rhythm HEART SOUNDS: S1 normal heart sound present and S2 normal heart sound present GI: COMMON NORMALS: Normal to inspection, nondistended, normoactive bowel sounds present, Soft to palpation and non-tender PALPATION: Yes Soft to palpation Extremity: COMMON NORMALS: no joint enlargement and no pedal edema Neuro: COMMON NORMALS: patient oriented x3 and moves all extremities SENSORIUM/ORIENTATION: Yes alert OTHER: He is awake and alert, pleasant, responsive. Her left side facial droop. Does track horizontally. FNF normal. Visual field somewhat difficult to assess due to him turning his head, although overall appears to be full to confrontation. No visual extinction. On light touch reports symmetrical sensation bilaterally. Does have sensory extinction on the left. No upper or lower extremity drift. Skin: COMMON NORMALS: no rashes or lesions noted GENERAL SKIN EXAM: no rashes or lesions noted Data 10/08/25 04:27 12/28/24 04:27 A&P Assessment and plan 1. Stroke: On reassessment today denies any dizziness. Visual henriquez are full comfortably, without any noted hemianopia. He does have persistent sensory extinction on the left. No visual extinction. FNF and HTS normal. No upper or lower extremity drift. Underwent MRI today, discussed findings with daughter prior CVA, without additional new CVA. Possible TIA, versus possibly hypoperfusion with low blood pressure. Pending carotid Doppler at the time with known carotid disease, vertebral disease, prior carotid stenting. Antihypertensives have been on hold, even with that blood pressure noted down to 90/50 last night. However, reviewing carotid output, coming back with less than 50% stenosis right and left ICA with mild atheromatous plaque. Normal antegrade flow in both vertebrals. CT obtained, reviewed results discussion, normal EF, grade 3 diastolic function. No regional wall motion normalities. Reviewed A1c, noted good control of diabetes. Resume Xarelto. Continue Plavix as per neurology recommendation alongside Xarelto, and continue statin. Monitor blood pressure. Avoid hypotension. Noted some somnolence by family, and noted worsening renal function with DANILO on CKD. Discussed with nursing, protective services case worker. Follow-up with neurology. Plan: DANILO on chronic kidney disease : Reported baseline creatinine 1.5?3; blood pressure medications discussed in context of renal clearance by history. Reviewed chemistry, noted BUN of 95, creatinine 3.4. Blood pressure soft lost 9 pounds 90/50, can exclude possible lower at the residential readmission, was noted to be also 90/50 on initial assessment by EMS yesterday. Continue to hold hypertensives. Hold furosemide. Oral intake/hydration as tolerating. Will give a small fluid challenge. - Monitor blood pressures. Caution with antihypertensives. Daytime sleepiness: He does wake up and answer appropriately during our visit. Family note that he has been sleeping during the day. Unclear whether there may be some component of dysregulated sleep-wake cycle, possibly intermittent related delirium in setting of acute illness. Of [place] has several medications may contribute, discussed with them discontinuing melatonin at this time. As well as cetirizine. He does also take hydrocodone which may need to discontinue as well in case of persistent symptoms. Will obtain a UA. Depression: Family for history of depression, has been on Zoloft. Concern for persistent depression. He denies loss of interest in activities recently, denies feeling more depressed. Noted has been started on Zoloft back in October. Currently on 100 mg. Does not appear that the dose has been adjusted since then. In case of persistent symptoms of depression, consider increasing dose and follow-up with [facility] [place]. Atrial fibrillation on anticoagulation : History of atrial fibrillation; currently on Xarelto. - Resume Xarelto (rivaroxaban) Type 2 diabetes mellitus : Diabetes managed with rapid-acting insulin and insulin glargine (Lantus); - Reviewed hemoglobin A1C as part of standard workup (to assess diabetes control) Peripheral artery disease : History of PAD. Right carotid artery stent (history) : Right-sided carotid stent per patient/family and stent card. - Reviewed carotid duplex ultrasound of the neck Right leg wound : Was scheduled for wound care today per nursing facility. Speech/swallow safety assessment need : Risk of aspiration discussed in context of stroke. - Speech therapy assessment; bedside swallow evaluation per nursing, with formal assessment if concerns Follow-up : Neurology to reassess after inpatient workup. - Benefit from follow-up with neurology PDMP PDMP Reviewed: Not Reviewed Attestations Medical Necessity Statement*: Continue hospitalization for additional assessment management after acute TIA with intermittent hypotension, DANILO on CKD. and High MDM includes amount and/or complexity of data reviewed/ordered [ resulted lab(s)/test(s), ordered lab(s)/test(s) and other healthcare professional discussion] as documented Diagnoses Stroke I63.9
--- NOTE | 2024-12-28 12:34 | USCV_ITS ---
Andrés Dumont Age: 79 Gender: M : 1945 Exam Date: 12/28/2024 08:51 Ordering Phys: Wil Lopez MD Technologist: [place] [facility] [place]: cva BP: 134 / 81 HR: 81 Rhythm: Sinus Technical Quality: Suboptimal MEASUREMENTS (Male / Female) Normal Values 2D ECHO LV Diastolic Diameter PLAX 3.9 cm 4.2 - 5.9 / 3.9 - 5.3 cm IVS Diastolic Thickness 1.3 cm 0.6 - 1.0 / 0.6 - 0.9 cm IVS Systolic Thickness 1.8 cm LVPW Diastolic Thickness 1.4 cm 0.6 - 1.0 / 0.6 - 0.9 cm LVPW Systolic Thickness 2.0 cm LVOT Diameter 2.1 cm LV Ejection Fraction 2D Teich 59.2 % LV Ejection Fraction MOD 4C 68.8 % LV Ejection Fraction MOD 2C 61.8 % LV Ejection Fraction 2C AL 60.2 % LA Diameter 4.7 cm Aorta at Sinotubular Diameter 3.4 cm M-MODE LA Ao Ratio MM 1.7 AV Cusp Separation MM 2.2 cm DOPPLER AV Peak Velocity 117.0 cm/s LVOT Peak Velocity 100.0 cm/s AV Area Cont Eq vti 4.0 cm squared AV Area Cont Eq pk 2.8 cm squared MV Peak Velocity 120.0 cm/s MV Area PHT 3.4 cm squared Mitral E to A Ratio 3.2 TV Peak Velocity 207.5 cm/s TR Peak Velocity 224.0 cm/s TR Peak Gradient 20.1 mmHg TV Peak E Velocity 74.0 cm/s PV Peak Velocity 104.0 cm/s FINDINGS Left Ventricle Normal left ventricular size, systolic function and wall thickness, with no regional wall motion abnormalities. Left ventricular ejection fraction is estimated at 60 %. Grade III/IV diastolic dysfunction (restrictive filling pattern), severely elevated filling pressures. Right Ventricle Normal right ventricular size and systolic function. Right Atrium Normal right atrial size. Left Atrium Normal left atrial size. IA Septum Normal appearance of the interatrial septum. Mitral Valve Mildly thickened mitral valve. No mitral valve stenosis. Aortic Valve Mild aortic valve calcification. No aortic valve stenosis. Tricuspid Valve Tricuspid valve not well visualized. Pulmonic Valve Trace pulmonary valve regurgitation. Pericardium No pericardial effusion. Aorta Normal diameter of the aortic root and ascending thoracic aorta. IVC Inferior vena cava not visualized. CONCLUSIONS Normal left ventricular size, systolic function and wall thickness, with no regional wall motion abnormalities. Left ventricular ejection fraction is estimated at 60 %. Grade III/IV diastolic dysfunction (restrictive filling pattern), severely elevated filling pressures. Mildly thickened mitral valve. No mitral valve stenosis. Mild aortic valve calcification. No aortic valve stenosis. Tricuspid valve not well visualized. There is no pericardial effusion. Due to suboptimal quality of the study regurgitation of the valves cannot be assesed Hermila Lovell MD (Electronically Signed) Final Date: 28 December 2024 14:09 S
[2024-12-29] MEDS: HYDROcodone-acetaminophen 5-325 mg Tablet 1 TAB PO ×2 (00:58→07:18)
[2024-12-29 03:56] VITALS: BP 130/65; PULSE 65; RESP 17; TEMP 36.9; O2SAT 90
[2024-12-29 05:11] LABS: Hematocrit 35.3 % (37-53); Hemoglobin 10.90 g/dL (11.27-16.99); Mean Corpuscular HGB Conc 30.9 g/dL (30-55); Mean Corpuscular Hemoglobin 27.5 pg (27-33); Mean Corpuscular Volume 89.1 fl (82-101); Nucleated Red Blood Cells % 0 %; Platelet Count 481 10^3/cmm (157-399); Red Blood Count 3.96 10^6/uL (3.85-5.65); White Blood Count 15.08 10^3/uL (3.29-11.43)
[2024-12-29] MEDS: insulin glargine 100 units/1 mL 35 UNIT SUBCUT (05:32)
[2024-12-29 05:45] LABS: Anion Gap 17.1 (5-19); Calcium 8.7 mg/dL (8.5-10.5); Carbon Dioxide 23 mmol/L (22-29); Chloride 105 mmol/L (98-107); Creatinine Clr Calc Pharmacy 27.5149; Glucose 53 mg/dL (65-115); Osmolality Calculated 318 mOsm/kg (285-295); Potassium 4.1 mmol/L (3.5-5.1); Sodium 141 mmol/L (136-145)
[2024-12-29 06:00] VITALS: PULSE 63
[2024-12-29 06:01] LABS: Blood Urea Nitrogen 92 mg/dL (8-23)
--- NOTE | 2024-12-29 07:36 | XRR_ITS ---
PROCEDURE INFORMATION: Exam: XR Chest Exam date and time: 12/29/2024 8:27 AM Age: 79 years old Clinical indication: Chest wall pain; Additional info: Assess for any infiltrate TECHNIQUE: Imaging protocol: Radiologic exam of the chest. Views: 1 view. COMPARISON: CR XR chest 1V portable [id number] 12/16/2024 10:34 AM FINDINGS: Lungs: Unremarkable. No consolidation. Pleural spaces: Unremarkable. No pleural effusion. No pneumothorax. Heart/Mediastinum: Unremarkable. No cardiomegaly. Bones/joints: Unremarkable. XR/XR chest 1V portable [id number] IMPRESSION: No acute findings.
[2024-12-29 07:52] VITALS: BP 130/81; PULSE 66; RESP 17; TEMP 36.3; O2SAT 92
[2024-12-29 08:33] LABS: PCP Screen Urine Negative (Negative)
[2024-12-29 08:51] LABS: Glucose Urine UA Negative (Normal); Nitrate Urine Negative (Negative); Specific Gravity, Urine 1.015 (1.005-1.030)
[2024-12-29 08:52] LABS: Add Urine Microscopic? YES; UA Manual Slide Review YES; UA Slide Review UA Slide Review Perf
[2024-12-29 09:01] VITALS: PULSE 78; RESP 16; O2SAT 95
--- NOTE | 2024-12-29 10:34 | PM.DCS ---
Discharge Providers Date of Admission: 12/27/24 12:09 Date of Discharge: December 29, 2024 Attending Provider at Admission: Wil Lopez Attending Provider at Discharge: Wil Lopez Primary Care Provider: Humberto Griggs DO Diagnoses at Discharge Discharge Diagnosis 1. Stroke: Reason for Visit Reason for Visit: Possible Stroke Brief History: Andrés Dumont is a 79 year old gentleman with history of atrial fibrillation on anticoagulation (Xarelto), hypertension, type 2 diabetes mellitus, peripheral artery disease, gastroesophageal reflux disease, and benign prostatic hyperplasia, residing at a nursing facility, was brought to the emergency department for acute neurologic symptoms including facial droop, difficulty using the arm/hand, and trouble seeing. A stroke code was activated; initial National Institutes of Health Stroke Scale (NIHSS) was 5. Neurology and emergency medicine evaluated and determined he was not a candidate for thrombolytics. Prior history notable for cerebrovascular accident and right carotid artery stent (believed right-sided, with stent card available; performed at [facility] by Dr. Stafford, timing possibly late last year). Reports recent sinus infection about two weeks ago treated with antibiotics and steroids; those have been discontinued. Nursing facility planned wound care visit today for right leg wound. Denies recent fever, chills, sore throat, vomiting, diarrhea, rash, or recent falls. Notes neck pain over the past few days, improved; neck pain was advised as not typical of stroke. Blood pressures have been running lower lately per family; historically had high blood pressure. Diabetes regimen includes rapid-acting insulin and insulin glargine (Lantus); A1C not known, nursing facility performs blood work. Uses acetaminophen (Tylenol) as needed for pain. Former smoker; drinks very little alcohol; denies illicit drug use. Identifies as a Jehovah?s Witness and declines blood transfusions. Hospital Course Hospital Course He was admitted and Xarelto was initially held, Plavix continued, MRI was requested as per neurology recommendation to further assess the extent of the stroke prior to resuming anticoagulation. Anticoagulation resumed after return of MRI which showed his old right posterior parietal infarct moderate cerebral atrophy with confluent preventricular white matter changes with mild progression of white matter disease since April 2024, mild hippocampal atrophy, without acute CVA. Per neurology continue Plavix and Xarelto, he will also continue on high intensity statin. He is asked to follow-up with neurology after TIA and prior CVA. Noted good diabetes control with A1c of 7.1 incidentally noted pansinusitis progressed since April. With noted some hypotension on presentation blood pressure 90/50, antihypertensives were held, diuretics held. Blood pressures were monitored. Blood pressures with some fluctuation, additional dipped to 91/51 on 12/27. With DANILO and CKD, renal function was monitored. Received a 500 cc fluid infusion. DANILO with improvement. CK not elevated. He is maintaining blood pressures better. During hospitalization family also reported him being somnolent during daytime. UA was obtained and not suggestive of urinary tract infection. Number of his medications were adjusted. Cetirizine switched to as needed, please continue hydrocodone only as needed. Melatonin changed to as needed. His mental status has improved. She will avoid further blood pressure drips for now carvedilol and lisinopril are not restarted. Spironolactone is not restarted at this time just yet. Lasix is changed to as needed as he is metolazone. Please reassess blood pressures, target long-term blood pressures to be below 130/90 but avoiding hypotensive dips. During hospitalization also found to have episode of hypoglycemia blood sugar down to 53 with response to oral glucose supplement. Insulin Lantus is decreased to 35 units at bedtime with continued short acting insulin during the day. Continue to monitor blood glucose, avoid hypoglycemia. He is to continue Flonase and a course of amoxicillin-clavulanate is provided for progressed sinusitis with request to revisit with ENT. Continue Zoloft for depression, revisit symptoms and continue optimization of treatment. Physical Exam Narrative: Accompanied by his family including his Const: COMMON NORMALS: patient oriented x3 and alert GENERAL APPEARANCE: cooperative ORIENTATION/CONSCIOUSNESS: Yes awake HENMT: COMMON NORMALS: oropharynx normal Neck/C-Spine: COMMON NORMALS: no JVD Resp: COMMON NORMALS: normal respiratory effort and clear to auscultation bilaterally AUSCULTATION: clear to auscultation bilaterally Cardio: COMMON NORMALS: no JVD, regular rhythm, S1 normal heart sound present, S2 normal heart sound present and No murmurs present (Cardio) RHYTHM: regular rhythm HEART SOUNDS: S1 normal heart sound present and S2 normal heart sound present GI: COMMON NORMALS: Normal to inspection, nondistended, normoactive bowel sounds present, Soft to palpation and non-tender PALPATION: Yes Soft to palpation Extremity: COMMON NORMALS: no joint enlargement and no pedal edema Neuro: COMMON NORMALS: patient oriented x3 and moves all extremities SENSORIUM/ORIENTATION: Yes alert OTHER: He is awake and alert, pleasant, responsive. Her left side facial droop. Does track horizontally. FNF normal. Visual field somewhat difficult to assess due to him turning his head, although overall appears to be full to confrontation. No visual extinction. He has had persistent senory extinction on the L. Skin: COMMON NORMALS: no rashes or lesions noted GENERAL SKIN EXAM: no rashes or lesions noted Discharge Data Studies Completed and Pending Completed Studies During Hospitalization Category Date Time Status CT head thrombolytic 40581 Stat Cat Scan 12/27/24 09:15 Completed MR head wo con* [id number] Routine MRI 12/28/24 08:00 Completed CV carotid duplex BI* [id number] Routine Ultrasound 12/28/24 06:00 Completed CV. echo wo/w contrast [id number] Routine Ultrasound 12/28/24 12:34 Completed Pending at discharge Category Date Time Status CXRP [XR chest 1V portable [id number]] Routine Exams 12/29/24 07:36 Taken Basic Metabolic Panel AM LABS Lab 12/30/24 04:00 Ordered Complete Blood Count w/Auto AM LABS Lab 12/30/24 04:00 Ordered Radiology Impressions Head CT 12/27/24 09:15 IMPRESSION: 1. No acute intracranial hemorrhage or edema. 2. Advanced cerebral and cerebellar atrophy with small vessel disease. 3. Remote posterior RIGHT parietal lobe infarct. 4. New sinusitis involving the ethmoid, sphenoid and maxillary sinuses. 5. Advanced atherosclerotic plaque in the intracranial carotid and vertebral arteries. Notified Alexis Barillas DO at 12/27/2024 9:29 AM. Head MRI 12/28/24 08:00 IMPRESSION: 1. Normal diffusion imaging. No acute infarct. Remote RIGHT posterior parietal infarct. 2. Moderate cerebral atrophy with confluent periventricular white matter changes. Mild progression of white matter disease since 05/17/2024. 3. Mild hippocampal atrophy. 4. No hemorrhage. 5. Pansinusitis. Sinusitis has progressed since 05/17/2024. Laboratory Results WBC 15.08 10^3/uL (3.29-11.43) H 12/29/24 04:13 RBC 3.96 10^6/uL (3.85-5.65) 12/29/24 04:13 Hgb 10.90 g/dL (11.27-16.99) L 12/29/24 04:13 Hct 35.3 % (37-53) L 12/29/24 04:13 MCV 89.1 fl (82-101) 12/29/24 04:13 MCH 27.5 pg (27-33) 12/29/24 04:13 MCHC 30.9 g/dL (30-55) 12/29/24 04:13 RDW 17.0 % (12.1-15.1) H 12/29/24 04:13 Plt Count 481 10^3/cmm (157-399) H 12/29/24 04:13 MPV 9.4 fL (7.4-10.4) 12/29/24 04:13 Neut % (Auto) 80.6 % 12/29/24 04:13 Lymph % (Auto) 6.7 % 12/29/24 04:13 [place] % (Auto) 9.7 % 12/29/24 04:13 Eos % (Auto) 1.4 % 12/29/24 04:13 Baso % (Auto) 0.2 % 12/29/24 04:13 Neut # (Auto) 12.15 10^3/uL (1.8-7.7) H 12/29/24 04:13 Lymph # (Auto) 1.0 10^3/uL (0.8-4.8) 12/29/24 04:13 [place] # (Auto) 1.5 10^3/uL (0.2-0.9) H 12/29/24 04:13 Eos # (Auto) 0.2 10^3/uL (0.0-0.8) 12/29/24 04:13 Baso # (Auto) 0.0 10^3/uL (0.0-0.1) 12/29/24 04:13 Nucleated RBC % (auto) 0 % 12/29/24 04:13 Nucleated RBCs # 0.0 /100WBC 12/29/24 04:13 PT 21.60 SECONDS (12.1-14.9) H 12/27/24 09:36 INR 1.76 (0.8-1.2) H 12/27/24 09:36 APTT 36.8 SECONDS (23.9-36.7) H 12/27/24 09:36 Sodium 141 mmol/L (136-145) 12/29/24 04:13 Potassium 4.1 mmol/L (3.5-5.1) 12/29/24 04:13 Chloride 105 mmol/L (98-107) 12/29/24 04:13 Carbon Dioxide 23 mmol/L (22-29) 12/29/24 04:13 Anion Gap 17.1 (5-19) 12/29/24 04:13 BUN 92 mg/dL (8-23) H* 12/29/24 04:13 Creatinine 3.0 mg/dL (0.7-1.2) H 12/29/24 04:13 GFR Calculation Not Reportable 12/29/24 04:13 Glucose 53 mg/dL (65-115) L 12/29/24 04:13 POC Glucose 121 mg/dL (70-110) H 12/29/24 06:49 Estimat Average Glucose 157 12/28/24 04:27 Hemoglobin A1c 7.1 % (4.0-6.0) H 12/28/24 04:27 Calculated Osmolality 318 mOsm/kg (285-295) H 12/29/24 04:13 Calcium 8.7 mg/dL (8.5-10.5) 12/29/24 04:13 Total Bilirubin 0.3 mg/dL (0.15-1.2) 12/27/24 09:36 AST 17 U/L (0-40) 12/27/24 09:36 ALT 17 U/L (0-41) 12/27/24 09:36 Alkaline Phosphatase 123 U/L (40-130) 12/27/24 09:36 Creatine Kinase 122 U/L (39-308) 12/28/24 15:04 Total Protein 6.7 g/dL (6.6-8.7) 12/27/24 09:36 Albumin 2.8 g/dL (3.5-5.2) L 12/27/24 09:36 Globulin 3.9 g/dL (1.3-4.6) 12/27/24 09:36 Triglycerides 90 mg/dL (0-150) 12/28/24 04:27 Cholesterol 101 mg/dL (0-200) 12/28/24 04:27 LDL Cholesterol, Calc 44 mg/dL (50-129) L 12/28/24 04:27 HDL Cholesterol 39 mg/dL (60-100) L 12/28/24 04:27 LDL/HDL Ratio 1.13 RATIO (0.00-3.22) 12/28/24 04:27 Cholesterol/HDL Ratio 2.59 mg/dL (1.0-5.00) 12/28/24 04:27 Urine Color Yellow (Yellow) 12/27/24 08:10 Urine Appearance Cloudy (CLEAR) A 12/27/24 08:10 Urine pH 5.5 (5-7) 12/27/24 08:10 Ur Specific [place] 1.015 (1.005-1.030) 12/27/24 08:10 Urine Protein Negative (Negative) 12/27/24 08:10 Urine Glucose (UA) Negative (Normal) 12/27/24 08:10 Urine Ketones Negative (Negative) 12/27/24 08:10 Urine Blood Negative (Negative) 12/27/24 08:10 Urine Nitrate Negative (Negative) 12/27/24 08:10 Urine Bilirubin Negative (Negative) 12/27/24 08:10 Urine Urobilinogen 0.2 mg/dL (Negative) 12/27/24 08:10 Ur Leukocyte Esterase Negative (Negative) 12/27/24 08:10 Urine RBC Rare /hpf (0-2) 12/27/24 08:10 Urine WBC Rare /hpf (0-5) 12/27/24 08:10 Ur Squamous Epith Cells Rare /hpf (0-5) 12/27/24 08:10 Amorphous Sediment Not Reportable 12/27/24 08:10 Urine Bacteria Trace /hpf (NONE) 12/27/24 08:10 Hyaline Casts 0-4 /lpf H 12/27/24 08:10 Urine Opiates Screen Positive ng/mL (Negative) H 12/27/24 08:10 Ur Barbiturates Screen Negative ng/mL (Negative) 12/27/24 08:10 Ur Phencyclidine Scrn Negative ng/mL (Negative) 12/27/24 08:10 Ur Amphetamines Screen Negative ng/mL (Negative) 12/27/24 08:10 U Benzodiazepines Scrn Negative ng/mL (Negative) 12/27/24 08:10 Urine Cocaine Screen Negative ng/mL (Negative) 12/27/24 08:10 U Marijuana (THC) Screen Negative ng/mL (Negative) 12/27/24 08:10 Vitals Last Vital Signs Temp 97.3 F L 12/29/24 07:52 Pulse 78 12/29/24 09:01 Resp 16 12/29/24 09:01 BP 130/81 12/29/24 07:52 Pulse Ox 95 12/29/24 09:01 O2 Del Method Room Air 12/29/24 09:01 Discharge Plan Discharge Patient Disposition: Xfer SNF Condition: Stable Prescriptions: New amoxicillin-pot clavulanate 875-125 mg tablet 1 tab PO BID Qty: 14 0RF Continued pantoprazole 40 mg tablet,delayed release (DR/EC) 40 mg PO DAILY amiodarone 200 mg tablet 200 mg PO DAILY acetaminophen 325 mg capsule 650 mg PO QID PRN (Reason: Pain) sertraline 100 mg tablet 100 mg PO BEDTIME furosemide [Lasix] 20 mg tablet 40 mg PO DAILY PRN (Reason: Edema) multivitamin [Multiple Vitamins] Tablet 1 tab PO DAILY potassium chloride 10 mEq tablet extended release 10 meq PO BID clopidogrel 75 mg tablet 75 mg PO DAILY ursodiol 300 mg capsule See Rx Instructions .ROUTE .COMPLEX Rx Instructions: take 3 caps in the am and take 2caps in the pm ...TAKE 5 CAPSULES BY MOUTH ONCE DAILY IN 2-3 DIVIDED DOSES albuterol sulfate 90 mcg/actuation HFA aerosol inhaler 2 puff INHALATION .Q4-6H budesonide [Rhinocort Allergy] 32 mcg/actuation [place],Non-Aerosol 1 spray INTRANASAL BID Rx Instructions: administer into each nostril insulin lispro [Humalog KwikPen Insulin] 100 unit/mL insulin pen 12 unit SUBCUT TID albuterol sulfate 2.5 mg /3 mL (0.083 %) solution for nebulization 2.5 mg inhalation Q4H PRN (Reason: sob) bisacodyl 10 mg Suppository 10 mg AR DAILY PRN (Reason: constipation ) Fleet Enema 19-7 gram/118 mL Enema 118 ml AR DAILY PRN (Reason: Constipation) Xarelto 20 mg tablet 20 mg PO QPM peg 3350-bowel 2,two part prep See Rx Instructions .ROUTE .COMPLEX Rx Instructions: Mix 17 g into 6-8oz of liquid give orally once daily as needed for Constipation tamsulosin [Flomax] 0.4 mg capsule 0.4 mg PO BEDTIME rosuvastatin 40 mg tablet 40 mg PO BEDTIME Changed cetirizine [Allergy Relief (cetirizine)] 5 mg tablet 5 mg PO QPM PRN (Reason: Allergy Symptoms) Qty: 1 0RF Rx Instructions: Dose change to PRN only insulin glargine [Lantus Solostar U-100 Insulin] 100 unit/mL (3 mL) insulin pen 35 unit SUBCUT BEDTIME Qty: 0.01 0RF Rx Instructions: Dose change to bedtime only hydrocodone-acetaminophen 5-325 mg tablet 1 tab PO Q6H PRN (Reason: Pain, Moderate) Qty: 1 0RF Rx Instructions: Dose change to PRN only melatonin 3 mg Tablet 3 mg PO BEDTIME PRN (Reason: Sleep) Qty: 1 0RF Rx Instructions: Dose change to PRN only metolazone 5 mg tablet See Rx Instructions .ROUTE .COMPLEX PRN (Reason: Edema) Qty: 1 0RF Rx Instructions: Dose change to PRN only Take 1 tablet by mouth as needed for increased weight . May give prn if weight gain more than 3lbs in weight in 24 hour or 5lbs in one week. 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 [Other] - 2 weeks Referral Note: DANILO on CKD Formerly Named [facility] [Outside] Scar Leal MD [Physician, Neurology] - 2 weeks Referral Note: Recurrent CVA Ren Garcia MD [Physician, Ear, Nose, Throat] - 2 weeks Referral Note: Recurrent/worsening sinusitis Humberto Griggs DO [Primary Care Provider, Family Practice] - 4-7 days Discharge Diet: Cardiac and Diabetic Discharge Activity: As per PT/OT instructions Patient Instructions: Amoxicillin/Clavulanate Potassium (By mouth), Transient Ischemic Attack (GEN), Acute Kidney Injury (GEN), Opioid Safety, Patient Portal & Ann Instructions Activity Restrictions/Additional Instructions: Continue Plavix and Xarelto, continue cholesterol medication. Follow-up with your primary provider and with neurology for reassessment after transient ischemic attack. Continue to monitor blood pressures, avoid hypotension. Do not resume your antihypertensives for now. Monitor blood pressures 3 times daily, bring values to your appointment to continue to optimize blood pressure and avoid hypotension (blood pressure less than 90/50). Resume antihypertensives gradually. Long-term target blood pressure less than 130/90. Avoid sedating medications, give hydrocodone as needed, do not give scheduled. Hold scheduled cetirizine. Use melatonin as needed for sleep as needed. Continue to optimize blood glucose control for diabetes. Avoid hypoglycemia, which was noted during hospitalization and insulin Lantus dose was cut down to 35 units at bedtime. Follow-up blood glucose, target blood glucose 100-150. Increase Lantus slowly to try to achieve targets. Follow-up with ear nose throat doctor for reassessment of persistent/slightly worsening sinusitis. Discharge Attestations Time Spent in Discharge Care*: greater than 30 min Quality Metrics Clinical Quality Measures [ Cerebrovascular Accident { Contraindication to Antithrombotic: None; antithrombotic prescribed; Contraindication to Anticoagulation: None; anticoagulation prescribed; Contraindication to Statin: None; Statin prescribed;}] Coding Level of Care Code 47336 Total time (in minutes) for Discharge: 40 Diagnoses Stroke I63.9
[2024-12-29 13:01] LABS: SARS Covid-2 Antigen Negative (Negative)
[2024-12-29 13:06] VITALS: BP 178/75; PULSE 72; RESP 18; TEMP 36.4; O2SAT 99
== END 2024-12-29 14:50 | disposition skilled nursing facility (03) ==
LOC: ER 09:48 → MEDSURG 13:32 → ER IP 12-28 11:58
PROVIDERS: Admitting Provider Internal Medicine; Emergency Provider Family Medicine; PCP Electrodiagnostic Medicine; Visit Provider Internal Medicine
DX: I63.9 Cerebral infarction, unspecified (principal); R29.705 NIHSS score 5; K21.9 Gastro-esophageal reflux disease without esophagitis; Z79.01 Long term (current) use of anticoagulants; I10 Essential (primary) hypertension; I48.91 Unspecified atrial fibrillation; E11.9 Type 2 diabetes mellitus without complications; I73.9 Peripheral vascular disease, unspecified; Z87.891 Personal history of nicotine dependence
CPT/HCPCS: 36415; 36416; 70450; 70551; 71045; 80048; 80053; 80061; 80306; 81001; 82550; 82962; 83036; 85025; 85610; 85730; 87426; 92507; 92523; 92526; 92610; 93005; 93880; 96372; 96374; 97116; 97161; 97165; 97530; 99291; C8929; G0378; J1815; J7030; J7120; J9999

== ENCOUNTER → 2025-01-02 13:57 | Outpatient (BNVA) | payer MEDICARE, OTHER, SELFPAY | PROVIDERS: PCP Electrodiagnostic Medicine; Visit Provider Podiatrist Foot & Ankle Surgery | DX: E11.42 Type 2 diabetes mellitus with diabetic polyneuropathy (principal); L60.3 Nail dystrophy; L84 Corns and callosities; I73.9 Peripheral vascular disease, unspecified; E11.8 Type 2 diabetes mellitus with unspecified complications; Z79.4 Long term (current) use of insulin | CPT/HCPCS: 11056; 11721 ==

== ENCOUNTER → 2025-01-03 10:50 | Outpatient (BNVA) | payer MEDICARE, OTHER, SELFPAY | PROVIDERS: PCP Electrodiagnostic Medicine; Visit Provider Thoracic Surgery (Cardiothoracic Vascular Surgery) | DX: E11.52 Type 2 diabetes mellitus with diabetic peripheral angiopathy with gangrene (principal); E11.621 Type 2 diabetes mellitus with foot ulcer; L89.891 Pressure ulcer of other site, stage 1; Z09 Encounter for follow-up examination after completed treatment for conditions other than malignant neoplasm | CPT/HCPCS: 97597 ==

== ENCOUNTER 2025-01-12 13:35 | Outpatient (CLI) | payer MEDICARE, OTHER, SELFPAY ==
--- NOTE | 2025-01-12 13:45 | USR_ITS ---
PROCEDURE INFORMATION: Exam: US Duplex Right Lower Extremity Arteries Or Arterial Bypass Grafts Exam date and time: 01/12/2025 1:59 PM Age: 79 years old Clinical indication: Other: Slow healing wound to RT foot; Additional info: St 3 pressure to heel RT TECHNIQUE: Imaging protocol: Right Real-time duplex scan of the arteries or arterial bypass grafts of the right lower extremity with 2-D callaway scale, color Doppler flow and spectral waveform analysis. Images documented and saved. COMPARISON: US CV segpressure LE [facility] [id number] 09/28/2020 7:40 AM FINDINGS: Right common femoral artery: No occlusion or significant stenosis. Normal waveform. No pseudoaneurysm in the inguinal region. Right superficial femoral artery: No occlusion or significant stenosis. Normal waveform. Right popliteal artery: No occlusion or significant stenosis. Normal waveform. Right calf/foot arteries: No occlusion or significant stenosis in the visualized arteries. Normal waveforms. Dorsalis pedis artery is patent. Soft tissues: No hematoma or collection. Other findings: Ankle-brachial index 1.1: Normal US/CV arterial duplex [facility] [id number] IMPRESSION: No stenosis or occlusion.
== END 2025-01-12 13:36 | disposition home or self-care (01) ==
PROVIDERS: PCP Electrodiagnostic Medicine; Visit Provider Thoracic Surgery (Cardiothoracic Vascular Surgery)
DX: L97.422 Non-pressure chronic ulcer of left heel and midfoot with fat layer exposed (principal); L89.613 Pressure ulcer of right heel, stage 3
CPT/HCPCS: 93926

== ENCOUNTER 2025-01-13 09:48 | Inpatient (IN) | payer MEDICARE, OTHER, SELFPAY ==
[2025-01-13] VITALS (19 sets, daily range): BP systolic 162–198; BP diastolic 83–114; PULSE 82–101; RESP 16–32; TEMP 36.7; O2SAT 88–94; BMI 35.8
--- NOTE | 2025-01-13 09:53 | W.ED.SOB ---
HPI - SOB/Dyspnea General: Chief Complaint: Extremity Problem,Nontraumatic Stated Complaint: SOB - weight gain Source: patient and EMS Mode of arrival: EMS Limitations: no limitations History of Present Illness: HPI Narrative: 79-year-old male has had multiple medical issues history of chronic kidney disease, stroke, A-fib. Patient is here from snf they state over the last 15 days he has been having increasing weight gain and has gained roughly 30 pounds. Patient has no known history of CHF is on a low-dose Lasix there. Patient states he had some increased dyspnea denies any cough he denies any fever denies any pain anywhere. Patient is not requiring any oxygen here. Related Data Home Medications ?Medication ?Instructions ?Recorded ?Confirmed pantoprazole 40 mg tablet,delayed 40 mg PO DAILY 11/19/20 01/02/25 release multivitamin (Multiple Vitamins 1 tab PO DAILY 03/28/24 01/02/25 tablet) potassium chloride 10 mEq 10 meq PO BID 06/10/24 01/02/25 tablet,extended release albuterol sulfate 90 mcg/actuation 2 puff inhalation .Q4-6H 07/23/24 01/02/25 aerosol inhaler clopidogrel 75 mg tablet 75 mg PO DAILY 07/23/24 01/02/25 ursodiol 300 mg capsule See Rx Instructions .Route .COMPLEX 07/23/24 01/02/25 acetaminophen 325 mg capsule 650 mg PO QID PRN Pain 12/26/24 01/02/25 amiodarone 200 mg tablet 200 mg PO DAILY 12/26/24 01/02/25 furosemide 20 mg tablet (Lasix) 40 mg PO DAILY PRN Edema 12/26/24 01/02/25 sertraline 100 mg tablet 100 mg PO BEDTIME 12/26/24 01/02/25 albuterol sulfate 2.5 mg/3 mL 2.5 mg inhalation Q4H PRN sob 12/27/24 01/02/25 (0.083 %) solution for nebulization bisacodyl 10 mg rectal suppository 10 mg WI DAILY PRN constipation 12/27/24 01/02/25 budesonide 32 mcg/actuation nasal 1 spray intranasal BID 12/27/24 01/02/25 spray insulin lispro 100 unit/mL 12 unit SUBCUT TID type 2 diabetes 12/27/24 01/02/25 subcutaneous pen (Humalog KwikPen (U-100) Insulin) peg 3350-bowel 2,two part prep See Rx Instructions .Route .COMPLEX 12/27/24 01/02/25 rivaroxaban 20 mg tablet (Xarelto) 20 mg PO QPM 12/27/24 01/02/25 rosuvastatin 40 mg tablet 40 mg PO BEDTIME 12/27/24 01/02/25 sodium phosphates 19 gram-7 118 ml WI DAILY PRN Constipation 12/27/24 01/02/25 gram/118 mL enema (Fleet Enema) tamsulosin 0.4 mg capsule (Flomax) 0.4 mg PO BEDTIME 12/27/24 01/02/25 Previous Rx's ?Medication ?Instructions ?Recorded amoxicillin 875 mg-potassium 1 tab PO BID #14 tabs 12/29/24 clavulanate 125 mg tablet cetirizine 5 mg tablet (Allergy 5 mg PO QPM PRN Allergy Symptoms 12/29/24 Relief (cetirizine)) #1 tab hydrocodone 5 mg-acetaminophen 325 1 tab PO Q6H PRN Pain, Moderate #1 12/29/24 mg tablet tab insulin glargine 100 unit/mL (3 35 unit (0.35 mL) SUBCUT BEDTIME 12/29/24 mL) subcutaneous pen (Lantus #0.01 mL Solostar U-100 Insulin) melatonin 3 mg tablet 3 mg PO BEDTIME PRN Sleep #1 tab 12/29/24 metolazone 5 mg tablet See Rx Instructions .Route 12/29/24 .COMPLEX PRN Edema #1 tab Allergies Allergy/AdvReac Type Severity Reaction Status Date / Time lovastatin Allergy RASH Verified 01/02/25 13:58 blood Allergy Unknown Jehovah's Uncoded 01/02/25 13:58 witness [facility] ED [facility]: Medical History (Updated 01/13/25 @ 11:10 by Ne Vasquez MD) Hypertension Anticoagulation adequate with anticoagulant therapy Atrial fibrillation with controlled ventricular rate BPH (benign prostatic hyperplasia) Mass of right kidney Diabetes mellitus Acute cholecystitis Callus of foot Chronic ulcer of great toe of right foot, limited to breakdown of skin Hammertoe Peripheral arterial disease Diabetic peripheral neuropathy associated with type 2 diabetes mellitus Diabetes mellitus GERD (gastroesophageal reflux disease) Venous insufficiency Prostatitis, acute Acute cystitis with hematuria Surgical History Hx of cholecystectomy Status post right inguinal hernia repair Status post colonoscopy (12/13/20) descending colon polyp H/O esophagogastroduodenoscopy (12/13/20) normal Hx of tonsillectomy Family History Mother , AT AGE 73 Cancer COLON Father , AT AGE 50 Diabetes Social History Smoking and tobacco/nicotine status: former use of tobacco/nicotine Alcohol intake: current Alcohol intake frequency: holidays/special occasions only Marital status: Current occupational status: retired Physical Exam Const: COMMON NORMALS: patient oriented x3 HENMT: COMMON NORMALS: normocephalic and atraumatic HEAD & SCALP: normocephalic and atraumatic Eye: COMMON NORMALS: conjunctivae normal CONJUNCTIVA: Yes conjunctivae normal Neck/C-Spine: COMMON NORMALS: full ROM and supple Chest: COMMONS NORMALS: normal inspection of the chest Resp: COMMON NORMALS: normal respiratory effort, No retractions, No use of accessory muscles and clear to auscultation bilaterally AUSCULTATION: clear to auscultation bilaterally Cardio: COMMON NORMALS: regular rate, regular rhythm and No murmurs present (Cardio) RATE: regular rate RHYTHM: regular rhythm GI: COMMON NORMALS: Normal to inspection, nondistended, normoactive bowel sounds present, Soft to palpation, non-tender and no masses PALPATION: Yes Soft to palpation Extremity: COMMON NORMALS: full ROM NARRATIVE EXTREMITY EXAM: 2+ le edema Neuro: COMMON NORMALS: patient oriented x3, moves all extremities and no focal motor deficits Psych: COMMON NORMALS: mental status grossly normal, Normal thought process present and cooperative THOUGHT PROCESS: Normal thought process present Skin: COMMON NORMALS: no rashes or lesions noted and no wounds GENERAL SKIN EXAM: no rashes or lesions noted Course Vital Signs: Vital signs: Vital Signs Temperature 98.0 F 01/13/25 09:48 Pulse Rate 86 01/13/25 11:01 Respiratory Rate 26 H 01/13/25 11:01 Blood Pressure 162/85 01/13/25 11:01 Pulse Oximetry 92 01/13/25 11:01 Oxygen Delivery Me thod Room Air 01/13/25 09:48 MDM - SOB/Dyspnea Medical Decision Making Patient presents here with increased shortness of breath along with weight gain and lower extremity swelling. Differential includes pulm embolism community-acquired pneumonia and congestive heart failure. Patient has no signs of pneumonia on his chest x-ray is no signs of pulmonary emboli. He does have an elevated BNP from his baseline as some pulm edema on his chest x-ray. His BNP here was doubled from what his baseline typically is no white count no signs of pneumonia his EKG here showed only A-fib heart rate [address] elevation QRS 81 QTc 454 unchanged from previous. Did give him an IV dose of Lasix here. I spoke to hospitalist Dr. Lopez and will admit on observation to cardiac stepdown. Medical Records I reviewed the patient's medical records. Lab Data I reviewed the patient's lab results. 01/13/25 10:24 01/13/25 10:24 Labs/Radiology: Laboratory Results WBC 9.84 10^3/uL (3.29-11.43) 01/13/25 10:24 RBC 3.50 10^6/uL (3.85-5.65) L 01/13/25 10:24 Hgb 9.80 g/dL (11.27-16.99) L 01/13/25 10:24 Hct 31.2 % (37-53) L 01/13/25 10:24 MCV 89.1 fl (82-101) 01/13/25 10:24 MCH 28.0 pg (27-33) 01/13/25 10:24 MCHC 31.4 g/dL (30-55) 01/13/25 10:24 RDW 16.9 % (12.1-15.1) H 01/13/25 10:24 Plt Count 340 10^3/cmm (157-399) 01/13/25 10:24 MPV 8.5 fL (7.4-10.4) 01/13/25 10:24 Neut % (Auto) 73.1 % 01/13/25 10:24 Lymph % (Auto) 8.8 % 01/13/25 10:24 Fleming % (Auto) 13.1 % 01/13/25 10:24 Eos % (Auto) 3.2 % 01/13/25 10:24 Baso % (Auto) 0.3 % 01/13/25 10:24 Neut # (Auto) 7.19 10^3/uL (1.8-7.7) 01/13/25 10:24 Lymph # (Auto) 0.9 10^3/uL (0.8-4.8) 01/13/25 10:24 Fleming # (Auto) 1.3 10^3/uL (0.2-0.9) H 01/13/25 10:24 Eos # (Auto) 0.3 10^3/uL (0.0-0.8) 01/13/25 10:24 Baso # (Auto) 0.0 10^3/uL (0.0-0.1) 01/13/25 10:24 Nucleated RBC % (auto) 0 % 01/13/25 10: Nucleated RBCs # 0.0 /100WBC 01/13/25 10:24 PT 21.00 SECONDS (12.1-14.9) H 01/13/25 10:24 INR 1.69 (0.8-1.2) H 01/13/25 10:24 Sodium 136 mmol/L (136-145) 01/13/25 10:24 Potassium 3.8 mmol/L (3.5-5.1) 01/13/25 10:24 Chloride 100 mmol/L (98-107) 01/13/25 10:24 Carbon Dioxide 25 mmol/L (22-29) 01/13/25 10:24 Anion Gap 14.8 (5-19) 01/13/25 10:24 BUN 19 mg/dL (8-23) 01/13/25 10:24 Creatinine 1.3 mg/dL (0.7-1.2) H 01/13/25 10:24 GFR Calculation Not Reportable 01/13/25 10:24 Glucose 155 mg/dL (65-115) H 01/13/25 10:24 Calculated Osmolality 287 mOsm/kg (285-295) 01/13/25 10:24 Calcium 8.1 mg/dL (8.5-10.5) L 01/13/25 10:24 Total Bilirubin 0.4 mg/dL (0.15-1.2) 01/13/25 10:24 AST 18 U/L (0-40) 01/13/25 10:24 ALT 15 U/L (0-41) 01/13/25 10:24 Alkaline Phosphatase 145 U/L (40-130) H 01/13/25 10:24 NT-Pro-B Natriuret Pep 4350 pg/mL (0-450) H 01/13/25 10:24 Total Protein 6.5 g/dL (6.6-8.7) L 01/13/25 10:24 Albumin 2.9 g/dL (3.5-5.2) L 01/13/25 10:24 Globulin 3.6 g/dL (1.3-4.6) 01/13/25 10:24 All radiology interpretation(s) finalized by discharge EKG Data EKG 1: I personally reviewed and interpreted this EKG as follows: EKG Interpretation Date: 01/13/25 EKG interpretation time: 10:01 Interpretation: afib hr [address] elevation qrs 81 qtc 454 Discharge Plan Discharge Patient Disposition: Admitted As Inpatient Clinical Impression: CHF exacerbation Condition: Stable Coding Level of Care Code ED Tomato Grader for Lois Greco
--- OUTSIDE RECORDS SUMMARY | 2025-01-13 09:54 | XMS_ITS | Clinical Summary ---
Author Organization [facility] Facility Address [address] [place] [address] Care Team Providers Care Epic Willow Analyst Name Role Phone Unavailable Primary Care Provider [...] Description 11/22/2024 10:30 AM CDT Office Visit [facility] [address] [place] [address] Cassidy Alvarado NP Essential hypertension (Primary Dx); Diabetes mellitus without mention of complication, type II or unspecified type, not stated as uncontrolled (HCC); Longstanding persistent atrial fibrillation (HCC); Chronic kidney disease stage 3B (HCC) 11/22/2024 Documentation Only [facility], [facility] [address] [place] [address] Camasse, Tess 11/22/2024 Documentation Only [facility] [address] [place] [phone] Camasse, Tess 11/16/2024 Telephone [facility] [address] [place] [phone] Sangeetha Pollard MD 11/16/2024 Documentation Only [facility] [address] [place] [address] Camasse, Tess 11/11/2024 Telephone [facility] [address] [place] [phone] Sangeetha Pollard MD from Last 3 Months [...] st Contact Info) Description 2025 10:30 AM LOCATION ANALYST Office Visit [facility] [address] [place] [address] Cassidy Alvarado, HEATING REPAIR TECHNICIAN [address] [phone] Health Maintenance Due Date Last [...] ORDERABLES Final Re sult Performing Organization Address [facility]/ZIP Co de Phone Number PRINT/EXTERNAL (NON-INTERFACED LABS) * PTH, intact (11/18/2024 9:25 AM CDT) Parathyroid Hormone, Intact 140.8 pg/mL PRINT/WOOL SORTER AL (NON-INTERFACE D LABS) Blood Venous blood / Unknown 11/18/2024 9:25 AM CDT Sangeetha Pollard MD LAB BLOOD ORDERABLES Final Re sult Performing Organization Address [facility]/ZIP Co de Phone Number PRINT/EXTERNAL (NON-INTERFACED LABS) [...] mg/dL PRINT/EXTERNAL (NON-INTERFACE D LABS) eGFR Non-Afr Burkinan 42.5 PRINT/EXTERNAL (NON-INTERFACE D LABS) Blood Venous blood / Unknown 11/18/2024 9:25 AM CDT us Sangeetha Pollard MD LAB BLOOD ORDERABLES Final Re sult PRINT/EXTERNAL (NON-INTERFACED LABS) from Last 3 Months Insurance Medicare [employer] [id number]
--- OUTSIDE RECORDS SUMMARY | 2025-01-13 09:54 | XMS_ITS | Patient Health Record ---
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[employer] Children: x2 Living with: spouse Level of Education: Finished hig h school Living Situation: Home Section Notes: Church: [employer] Smoked 1ppd from [age] y/o Church: [employer] Smoked 1ppd from [age] y/o Church: [employer] Smoked 1ppd from 19-27 y/o Church: [employer] Smoked 1ppd from 18-27 y/o Church: [employer] Smoked 1ppd from 18-27 y/o Church: [employer] Smoked 1ppd from 18-27 y/o Church: [employer] Smoked 1ppd from 18-27 y/o Church: [employer] Smoked 1ppd from 18-27 y/o Problems Problem Type SNOMED Code ICD Code Onset Dates Problem Status W/U Status Risk Notes Problem Information temporarily unavailable Type 2 diabetes mellitus with diabetic chronic kidney disease (E11.22) Active confirmed Problem Information temporarily unavailable Hypertensive chronic kidney disease with stage 1 through stage 4 chronic kidney disease, or unspecified chronic kidney disease (I12.9) Active confirmed Problem Information temporarily unavailable Hyperparathyroidism (E21.3) Active confirmed Problem Information temporarily unavailable Hypertension, benign (I10) Active confirmed Problem Information temporarily unavailable Vitamin D deficiency (E55.9) Active confirmed Problem Information temporarily unavailable Diabetic neuropathy (E11.40) Active confirmed Problem Information temporarily unavailable Sleep apnea (G47.30) Active confirmed Problem Information temporarily unavailable Diabetes mellitus (E11.9) Active confirmed Problem Information temporarily unavailable Chronic kidney disease, stage 3b (N18.32) Active confirmed Plan Of Treatment Pending Test Test Name Order Date Albumin 04859 11/26/2021 Basic Metabolic Panel (BMP) 29971 2021 Magnesium (B) 62771 11/26/2021 Phosphorus (B) 07174 11/26/2021 Protein (U) Random 61687 11/26/2021 Uric Acid (B) 36830 11/26/2021 Vitamin D Total (B) 37937 11/26/2021 Creatinine (U) 85011 11/26/2021 UA Reflex Micro, Reflex Cult 12541, 8101 5, 41015 11/26/2021 PTH Intact 33823 11/26/2021 Insurance Providers Payer Name Payer Address Payer Phone Subscriber Number Group Number Insured Name Patient Relationship to Insured Coverage Start Date Coverage End Date [place] [address] [place] [phone] [id number] Andrés Dumont Self - patient is the insured [employer] [address] [address] [place] [address] [id number] Andrés Dumont Self - patient is the insured Medical (General) History Medical History History ICD Code type II diabetes mellitus hypertension (1997) hyperlipidemia peripheral neuropathy CKD secondary hyperparathyriodism Surgical History Surgery Date(Month/Year) cholecystectomy 08/2021 inguinal hernia repair right with hyproc adelia evacuation Hospitalization History Reason Date(Month/Year) see surgical
--- NOTE | 2025-01-13 10:01 | ECG_ITS ---
[employer] Test Date: 2025-01-13 Pat Name: Andrés Dumont Department: Room: Gender: Male Concrete Tester: : 1945 Requested By: Ne Vasquez Order Number: [id number] Twila MD: Danny Mcdonough M.D. Measurements Intervals Jackson Rate: 80 P: 0 [place]: 0 QRS: -46 QRSD: 81 T: 70 QT: 419 QTc: 484 Interpretive Statements ATRIAL FIBRILLATION LOW QRS VOLTAGE IN EXTREMITY LEADS [QRS DEFLECTION < 0.5 mV IN LIMB LEADS] PATTERN CONSISTENT WITH PULMONARY DISEASE LEFT ANTERIOR FASCICULAR BLOCK [QRS AXIS <= -45, QR IN I, RS IN II] SEPTAL MYOCARDIAL INFARCTION , OF INDETERMINATE AGE [40+ ms Q WAVE IN V1/V2] Compared to ECG 12/27/2024 09:26:48 Myocardial infarct finding now present Electronically Signed On 01-13-2025 15:23:38 CDT by Danny Mcdonough M.D. [email or web address]
--- NOTE | 2025-01-13 10:17 | XR_ITS ---
WS: [id number] Portable AP upright chest, 01/13/2025 Clinical Data: SOB Comparison: Portable chest, 12/29/2024 Findings: Bilateral patchy opacities are seen in the mid and upper lobes. No nodules, masses or effusions are seen. The heart is slightly enlarged. The pulmonary vascularity is not increased. No pneumothorax is seen. The aortic arch shows calcification with tortuosity. Monitor leads are on the chest wall. XR/XR chest 1V portable [id number] Impression: 1. Bilateral patchy opacities which may represent acute pneumonia and/or atelec tasis. 2. Pulmonary vascular congestion is less likely. 3. Atherosclerosis and cardiomegaly.
[2025-01-13 10:34] LABS: Hematocrit 31.2 % (37-53); Hemoglobin 9.80 g/dL (11.27-16.99); Mean Corpuscular HGB Conc 31.4 g/dL (30-55); Mean Corpuscular Hemoglobin 28.0 pg (27-33); Mean Corpuscular Volume 89.1 fl (82-101); Nucleated Red Blood Cells % 0 %; Platelet Count 340 10^3/cmm (157-399); Red Blood Count 3.50 10^6/uL (3.85-5.65); White Blood Count 9.84 10^3/uL (3.29-11.43)
[2025-01-13 10:46] LABS: INR 1.69 (0.8-1.2); Prothrombin Time 21.00 SECONDS (12.1-14.9)
[2025-01-13] MEDS: FUROsemide 10 mg/mL SDV 10mL 60 MG IVP (10:52)
--- NOTE | 2025-01-13 10:53 | PC.PHAR ---
Addendum entered by Odessa Coyne 01/13/25 10:59: Incomplete med list-[facility] is faxing 01/13/25 Original Note: Pt is from [facility]
[2025-01-13 11:03] LABS: Alanine Aminotransferase 15 U/L (0-41); Albumin Level 2.9 g/dL (3.5-5.2); Alkaline Phosphatase 145 U/L (40-130); Anion Gap 14.8 (5-19); Aspartate Amino Transferase 18 U/L (0-40); Blood Urea Nitrogen 19 mg/dL (8-23); Calcium 8.1 mg/dL (8.5-10.5); Carbon Dioxide 25 mmol/L (22-29); Chloride 100 mmol/L (98-107); Creatinine Clr Calc Pharmacy 66.1882; Globulin 3.6 g/dL (1.3-4.6); Glucose 155 mg/dL (65-115); NT Pro B Type Natriuretic Pept 4350 pg/mL (0-450); Osmolality Calculated 287 mOsm/kg (285-295); Potassium 3.8 mmol/L (3.5-5.1); Sodium 136 mmol/L (136-145); Total Protein 6.5 g/dL (6.6-8.7)
--- NOTE | 2025-01-13 13:25 | PC.PHAR ---
longterm med list no longer has Plavix 75mg on it. Verified with nursing.
--- NOTE | 2025-01-13 13:27 | PM.HP ---
Documented by User: RAFAELA Buckley STDNATALIO 01/13/25 15:06 Providers/Chief Complaint Admitting Physician: Wil Lopez Primary Care Provider: Humberto Griggs DO Chief Complaint: SOB - weight gain History of Present Illness Andrés Dumotn is a 79 year old male with a history of atrial fibrillation, cerebrovascular accident, chronic kidney disease, T2DM insulin dependent, hypertension, and sleep apnea who is brought to the ED from [facility] for worsening shortness of breath. He has gained 34lbs weight in the last 18 days. He has O2 that he wears at night as needed but is not requiring it at this moment. He feels better laying down reclined at about 45 degrees with a pillow behind him. His only other complaint is about a sacral sore that he [facility] a cream [facility] the [facility]. Review of Systems Const: Denies: fever(s), chills, change in appetite, night sweats or diaphoresis Card: Reports: edema, swelling of feet/ankles and dyspnea on exertion; Denies: chest pain or palpitations Resp: Reports: dyspnea and productive cough GI: Denies: abdominal pain, nausea, vomiting, diarrhea, constipation, hematochezia or melena : Denies: flank pain, difficulty urinating or dysuria Skin/Breast: Denies: rash, pruritus or erythema Neuro: Denies: headache(s) Medications/Allergies Home Medications ?Medication ?Instructions ?Recorded ?Confirmed ?Last Taken ?Type pantoprazole 40 mg tablet,delayed 40 mg PO DAILY 11/19/20 01/13/25 01/13/25 History release multivitamin (Multiple Vitamins 1 tab PO DAILY 03/28/24 01/13/25 01/13/25 History tablet) potassium chloride 10 mEq 10 meq PO BID 06/10/24 01/13/25 01/13/25 History tablet,extended release albuterol sulfate 90 mcg/actuation 1 puff inhalation .Q4H PRN 07/23/24 01/13/25 Unknown History aerosol inhaler Shortness Of Breath ursodiol 300 mg capsule See Rx Instructions .Route .COMPLEX 07/23/24 01/13/25 01/13/25 History acetaminophen 325 mg capsule 650 mg PO QID PRN Pain 12/26/24 01/13/25 12/24/24 20:05 History amiodarone 200 mg tablet 200 mg PO DAILY 12/26/24 01/13/25 01/13/25 History furosemide 20 mg tablet (Lasix) 20 mg PO DAILY PRN Edema 12/26/24 01/13/25 12/27/24 06:45 History sertraline 100 mg tablet 100 mg PO BEDTIME 12/26/24 01/13/25 01/12/25 History albuterol sulfate 2.5 mg/3 mL 2.5 mg inhalation Q4H PRN sob 12/27/24 01/13/25 Unknown History (0.083 %) solution for nebulization bisacodyl 10 mg rectal suppository 10 mg GA DAILY PRN constipation 12/27/24 01/13/25 Unknown History budesonide 32 mcg/actuation nasal 1 spray intranasal BID 12/27/24 01/13/25 01/13/25 History spray insulin lispro 100 unit/mL 12 unit SUBCUT TID type 2 diabetes 12/27/24 01/13/25 01/13/25 History subcutaneous pen (Humalog KwikPen (U-100) Insulin) rivaroxaban 20 mg tablet (Xarelto) 20 mg PO QPM 12/27/24 01/13/25 01/12/25 History rosuvastatin 40 mg tablet 40 mg PO BEDTIME 12/27/24 01/13/25 01/12/25 History sodium phosphates 19 gram-7 118 ml GA DAILY PRN Constipation 12/27/24 01/13/25 Unknown History gram/118 mL enema (Fleet Enema) tamsulosin 0.4 mg capsule (Flomax) 0.4 mg PO BEDTIME 12/27/24 01/13/25 01/12/25 History cetirizine 5 mg tablet (Allergy 5 mg PO QPM PRN Allergy Symptoms 12/29/24 01/13/25 12/26/24 19:40 Rx Relief (cetirizine)) #1 tab hydrocodone 5 mg-acetaminophen 325 1 tab PO Q6H PRN Pain, Moderate #1 12/29/24 01/13/25 12/25/24 12:05 Rx mg tablet tab insulin glargine 100 unit/mL (3 35 unit (0.35 mL) SUBCUT BEDTIME 12/29/24 01/13/25 01/12/25 Rx mL) subcutaneous pen (Lantus #0.01 mL Solostar U-100 Insulin) melatonin 3 mg tablet 3 mg PO BEDTIME PRN Sleep #1 tab 12/29/24 01/13/25 12/26/24 19:40 Rx metolazone 5 mg tablet See Rx Instructions .Route 12/29/24 01/13/25 Unknown Rx .COMPLEX PRN Edema #1 tab furosemide 40 mg tablet 40 mg PO DAILY PRN increased edema 01/13/25 01/13/25 Unknown History lidocaine HCl 2 % mucosal jelly See Rx Instructions .Route 01/13/25 01/13/25 Unknown History .COMPLEX PRN Pain polyethylene glycol 3350 17 17 g PO DAILY 01/13/25 01/13/25 01/13/25 History gram/dose oral powder (Miralax) Allergies Allergy/AdvReac Type Severity Reaction Status Date / Time lovastatin Allergy RASH Verified 01/02/25 13:58 blood Allergy Unknown Jekeenanvah's Uncoded 01/02/25 13:58 witness PFSH Acute PFSH: Medical History Hypertension Anticoagulation adequate with anticoagulant therapy Atrial fibrillation with controlled ventricular rate BPH (benign prostatic hyperplasia) Mass of right kidney Diabetes mellitus Acute cholecystitis Callus of foot Chronic ulcer of great toe of right foot, limited to breakdown of skin Hammertoe Peripheral arterial disease Diabetic peripheral neuropathy associated with type 2 diabetes mellitus Diabetes mellitus GERD (gastroesophageal reflux disease) Venous insufficiency Prostatitis, acute Acute cystitis with hematuria Surgical History Hx of cholecystectomy Status post right inguinal hernia repair Status post colonoscopy (12/13/20) descending colon polyp H/O esophagogastroduodenoscopy (12/13/20) normal Hx of tonsillectomy Family History Mother , AT AGE 73 Cancer COLON Father , AT AGE 50 Diabetes Social History Smoking and tobacco/nicotine status: former use of tobacco/nicotine Alcohol intake: current Alcohol intake frequency: holidays/special occasions only Marital status: Current occupational status: retired Vitals/I&O/Wt Last Vital Signs Temp 98.0 F 01/13/25 09:48 Pulse 86 01/13/25 11:01 Resp 26 H 01/13/25 11:01 BP 162/85 01/13/25 11:01 Pulse Ox 92 01/13/25 11:01 O2 Del Method Room Air 01/13/25 09:48 01/12/25 01/13/25 01/13/25 22:59 06:59 14:59 Intake Total 0 / 0 Balance 0 / 0 Weight last 48 hrs Weight 126.507 kg Physical Exam Const: COMMON NORMALS: patient oriented x3 and alert NUTRITIONAL APPEARANCE: obese HENMT: GENERAL EAR: hearing grossly impaired Laterality: bilateral Eye: SCLERA: scleral abnormal Laterality of scleral abnormality: positive left scleral injection and positive bilateral scleral icterus Chest: COMMONS NORMALS: normal inspection of the chest Resp: EFFORT & INSPECTION: Yes tachypneic AUSCULTATION: crackles (lower lobes) Laterality: bilateral Cardio: COMMON NORMALS: regular rate, regular rhythm, S1 normal heart sound present, S2 normal heart sound present and No murmurs present (Cardio) PERIPHERAL PULSES: Peripheral pulses 2+ throughout GI: COMMON NORMALS: Normal to inspection, nondistended, normoactive bowel sounds present AUSCULTATION: Yes normoactive bowel sounds Extremity: GENERAL: Yes edema (2+ edema noted in bilateral upper and lower extremities) Skin: LESIONS: lesion noted (lesion seen in gluteal cleft with evidence of prior emollient use) Data 01/13/25 10:24 01/13/25 10:24 A&P Assessment and plan 1. CHF exacerbation: Plan: 1. Congestive heart failure exacerbation 2. Sacral sore 3. Anemia Plan is to admit overnight for diuresis and management of fluid overload symptoms (e.g. extertional dyspnea, pitting edema, etc) with oxygen PRN. Considered starting an SGLT2i but was not an option due to eGFR<30. May consider starting Entresto after assessing response to diuretics. Differential diagnosis includes acute pericardial effusion, atypical pneumonia, acute blood loss anemia, pulmonary hypertension, acute on chronic kidney disease. Workup to assess causes and monitor treatment will include: - CBC, CMP, CXR, ECG, cardiac enzymes - Urinalysis and green catheter placement PDMP PDMP Reviewed: Not Reviewed Attestations Medical Necessity Statement*: CHF exacerbation Coding Level of Care Code 62627 Diagnoses CHF exacerbation I50.9 Documented by User: Wil Lopez MD 01/13/25 17:17 Providers/Chief Complaint Chief Complaint: SOB - weight gain Medications/Allergies Home Medications ?Medication ?Instructions ?Recorded ?Confirmed ?Last Taken ?Type pantoprazole 40 mg tablet,delayed 40 mg PO DAILY 11/19/20 01/13/25 01/13/25 History release multivitamin (Multiple Vitamins 1 tab PO DAILY 03/28/24 01/13/25 01/13/25 History tablet) potassium chloride 10 mEq 10 meq PO BID 06/10/24 01/13/25 01/13/25 History tablet,extended release albuterol sulfate 90 mcg/actuation 1 puff inhalation .Q4H PRN 07/23/24 01/13/25 Unknown History aerosol inhaler Shortness Of Breath ursodiol 300 mg capsule See Rx Instructions .Route .COMPLEX 07/23/24 01/13/25 01/13/25 History acetaminophen 325 mg capsule 650 mg PO QID PRN Pain 12/26/24 01/13/25 12/24/24 20:05 History amiodarone 200 mg tablet 200 mg PO DAILY 12/26/24 01/13/25 01/13/25 History furosemide 20 mg tablet (Lasix) 20 mg PO DAILY PRN Edema 12/26/24 01/13/25 12/27/24 06:45 History sertraline 100 mg tablet 100 mg PO BEDTIME 12/26/24 01/13/25 01/12/25 History albuterol sulfate 2.5 mg/3 mL 2.5 mg inhalation Q4H PRN sob 12/27/24 01/13/25 Unknown History (0.083 %) solution for nebulization bisacodyl 10 mg rectal suppository 10 mg GA DAILY PRN constipation 12/27/24 01/13/25 Unknown History budesonide 32 mcg/actuation nasal 1 spray intranasal BID 12/27/24 01/13/25 01/13/25 History spray insulin lispro 100 unit/mL 12 unit SUBCUT TID type 2 diabetes 12/27/24 01/13/25 01/13/25 History subcutaneous pen (Humalog KwikPen (U-100) Insulin) rivaroxaban 20 mg tablet (Xarelto) 20 mg PO QPM 12/27/24 01/13/25 01/12/25 History rosuvastatin 40 mg tablet 40 mg PO BEDTIME 12/27/24 01/13/25 01/12/25 History sodium phosphates 19 gram-7 118 ml GA DAILY PRN Constipation 12/27/24 01/13/25 Unknown History gram/118 mL enema (Fleet Enema) tamsulosin 0.4 mg capsule (Flomax) 0.4 mg PO BEDTIME 12/27/24 01/13/25 01/12/25 History cetirizine 5 mg tablet (Allergy 5 mg PO QPM PRN Allergy Symptoms 12/29/24 01/13/25 12/26/24 19:40 Rx Relief (cetirizine)) #1 tab hydrocodone 5 mg-acetaminophen 325 1 tab PO Q6H PRN Pain, Moderate #1 12/29/24 01/13/25 12/25/24 12:05 Rx mg tablet tab insulin glargine 100 unit/mL (3 35 unit (0.35 mL) SUBCUT BEDTIME 12/29/24 01/13/25 01/12/25 Rx mL) subcutaneous pen (Lantus #0.01 mL Solostar U-100 Insulin) melatonin 3 mg tablet 3 mg PO BEDTIME PRN Sleep #1 tab 12/29/24 01/13/25 12/26/24 19:40 Rx metolazone 5 mg tablet See Rx Instructions .Route 12/29/24 01/13/25 Unknown Rx .COMPLEX PRN Edema #1 tab furosemide 40 mg tablet 40 mg PO DAILY PRN increased edema 01/13/25 01/13/25 Unknown History lidocaine HCl 2 % mucosal jelly See Rx Instructions .Route 01/13/25 01/13/25 Unknown History .COMPLEX PRN Pain polyethylene glycol 3350 17 17 g PO DAILY 01/13/25 01/13/25 01/13/25 History gram/dose oral powder (Miralax) Allergies Allergy/AdvReac Type Severity Reaction Status Date / Time lovastatin Allergy RASH Verified 01/02/25 13:58 blood Allergy Unknown Jayde Uncoded 01/02/25 13:58 witness PFSH Acute PFSH: Medical History Hypertension Anticoagulation adequate with anticoagulant therapy Atrial fibrillation with controlled ventricular rate BPH (benign prostatic hyperplasia) Mass of right kidney Diabetes mellitus Acute cholecystitis Callus of foot Chronic ulcer of great toe of right foot, limited to breakdown of skin Hammertoe Peripheral arterial disease Diabetic peripheral neuropathy associated with type 2 diabetes mellitus Diabetes mellitus GERD (gastroesophageal reflux disease) Venous insufficiency Prostatitis, acute Acute cystitis with hematuria Surgical History Hx of cholecystectomy Status post right inguinal hernia repair Status post colonoscopy (12/13/20) descending colon polyp H/O esophagogastroduodenoscopy (12/13/20) normal Hx of tonsillectomy Family History Mother , AT AGE 73 Cancer COLON Father , AT AGE 50 Diabetes Social History Smoking and tobacco/nicotine status: former use of tobacco/nicotine Alcohol intake: current Alcohol intake frequency: holidays/special occasions only Marital status: Current occupational status: retired Physical Exam Narrative: Accompanied by daughter Data 01/13/25 10:24 01/13/25 10:24 A&P Assessment and plan 1. CHF exacerbation: Plan: 1. Acute Congestive heart failure exacerbation - HFpEF with anasarca, KAT, elev NTPROBNP com to baseline. 2. Sacral sore 3. Anemia Plan is to admit overnight for IV diuresis and management of fluid overload symptoms (e.g. extertional dyspnea, pitting edema, etc) with oxygen PRN. Considered starting an SGLT2i but was not an option due to eGFR<30. May consider starting Entresto after assessing response to diuretics. Differential diagnosis includes acute pericardial effusion, atypical pneumonia, acute blood loss anemia, pulmonary hypertension, acute on chronic kidney disease. Workup to assess causes and monitor treatment will include: - CBC, CMP, CXR, ECG, cardiac enzymes - Urinalysis and green catheter placement This is a 79-year-old gentleman with a history of hypertension and type 2 diabetes mellitus, atrial fibrillation, benign prostatic hyperplasia, former smoking, recent stroke, and residence in a [facility], presenting with increased shortness of breath and approximately 30 pounds of weight gain despite taking Lasix (furosemide). Reports swelling in legs and hands. Oxygen saturation has been in the low 90s but has not required supplemental oxygen. Denies new cough; notes intermittent phlegm production that he attributes to sinus issues and says this is not new. Denies choking with liquids or food. Appetite is good; ate a large breakfast. Denies nausea, vomiting, diarrhea, rashes, dysuria, urinary difficulties, blood in stool, or melena. Reports a longstanding pressure sore near the tailbone that nursing staff clean and treat with ointment, which helps; mainly sits or is in bed and uses a walker to go to the bathroom. He and his spouse are currently in the [facility]; spouse recently broke her hip. Preferences discussed: does not want blood transfusions of any kind; is agreeable to attempts at recovery (e.g., CPR) if there is a reasonable chance of recovery but prefers to be allowed to pass if recovery is unlikely. Power of attorney recruiter documents are provided. Eye redness noted by family as occurring intermittently (possible broken blood vessel). PE - HEENT: eye noted to be a little bit red by examiner - irregular rate/rhythm. no M/R/G - Lungs: Min crackles at bases. - Extremities: 3+ upper and lower extremity edema/anasarca Acute diastolic CHF: Findings and history consistent with fluid overload and congestive symptoms were discussed; prior echo reportedly showed preserved systolic function with diastolic dysfunction. ChPEest X-ray described bilateral patchy opacities with possible pulmonary vascular congestion; NT-proBNP elevated compared to baseline. Reviewed vitals, CBC, CMP. Chest x-ray. Troponin, EKG, prior echocardiogram. Reviewed ED provider note, discussed with ED provider. - Continue IV diuretics with Lasix 40 mg IV every 12 hours. Metolazone prior to morning dose. Monitor basic chemistry; track intake and output; monitor for electrolyte abnormalities; reassess volume status. - [place] fluid restriction of 1 liter per day - Obtain limited transthoracic echocardiogram (TTE) focusing on left ventricular function, valves, and assessment for any pericardial effusion (atrial fibrillation on telemetry, however, some alternating QRSs, possibly some intermittent junctional escape, would suspect less likely electro electrical in 2 months secondary to effusion but will assess). - Complete troponin EKG series to further assess for any underlying cardiac ischemia. Does have some chronic relation troponin with troponins in the 30s in the past. -Long-term GDMT addition would be of benefit, not a candidate for Farxiga, however, may benefit from Entresto, although we will hold off for the time being with initiation of diuresis with underlying CKD pending reassessment of renal function. - May benefit from dietary and fluid restriction at discharge. Obtain dietitian follow-up consultation. - Place under observation on the cardiac step-down unit Atrial fibrillation : EKG shows atrial fibrillation; ongoing rhythm monitoring planned. - Monitor telemetry - Continue medications including anticoagulation with Xarelto (rivaroxaban) Recent ischemic stroke (post-hospitalization) : Recent hospitalization for stroke with ongoing rehabilitation in a [facility]. - Continue Plavix and Xarelto Pressure sore (tailbone) : Longstanding pressure sore near the tailbone treated with ointment at the [facility]; difficult to visualize fully due to mobility limitations. - Physical therapy to reassess mobility - Continue repositioning every two hours - Request foam dressing - Dietitian consultation Fall risk : Mobility limited; mainly seated or in bed; uses walker. - Maintain fall precautions - Needs walker for ambulation Potential viral respiratory infection exposure : No fever or leukocytosis; cough not worse than baseline; atypical infection considered given [facility] exposure. - Obtain viral nasal swab for influenza, COVID-19, and RSV - If cough and sputum production continue, collect sputum sample - Maintain aspiration precautions - Arrange speech therapy visit while hospitalized CKD: Creatinine appears to be possibly lower than baseline but likely affected by his fluid overload. Follow-up renal function. Reassess with diuresis. Follow-up : Care transition and ongoing optimization anticipated. - Long-term goal to follow with cardiology for heart failure optimization (discussion documented) PDMP PDMP Reviewed: Not Reviewed Attestations Medical Necessity Statement*: Place in observation, assess management of acute CHF and gentleman with additional comorbidities as above. and High MDM includes amount and/or complexity of data reviewed/ordered [ previous or external records, resulted lab(s)/test(s), ordered lab(s)/test(s) and other healthcare professional discussion] and described risk of complication, morbidity or mortality of management as documented Diagnoses CHF exacerbation I50.9
--- NOTE | 2025-01-13 13:38 | PC.NURSE ---
green placed by this RN 550ml of urine return. urine is yellow and clean; green placed for accuate urine output.
[2025-01-13 15:12] LABS: Respiratory Syncytial Virus Ce NEGATIVE (Negative); SARS-CoV-2 PCR NEGATIVE (Negative)
--- NOTE | 2025-01-13 15:48 | USCV_ITS ---
Andrés Dumont Age: 79 Gender: M : 1945 Exam Date: 01/13/2025 16:22 Ordering Phys: Wil Lopez MD Technologist: Exam Location: [facility] [place] Indication: ? ef BP: / HR: Rhythm: Sinus Technical Quality: Adequate MEASUREMENTS (Male / Female) Normal Values FINDINGS Left Ventricle Normal left ventricular size, systolic function and wall thickness, with no regional wall motion abnormalities. Left ventricular ejection fraction is estimated at 60 %. Right Ventricle Right Atrium Left Atrium IA Septum Mitral Valve Aortic Valve Tricuspid Valve Pulmonic Valve Pericardium Aorta IVC CONCLUSIONS Limited echo Normal left ventricular size, systolic function and wall thickness, with no regional wall motion abnormalities. Left ventricular ejection fraction is estimated at 60 %. There is no pericardial effusion. Hermila Lovell MD (Electronically Signed) Final Date: 14 January 2025 23:39 S
[2025-01-13 16:22] LABS: Troponin(5th) Baseline 47 ng/L (0-15)
--- NOTE | 2025-01-13 17:22 | PC.NURSE ---
800ml urine emptied from cath by this RN.
--- NOTE | 2025-01-13 17:25 | PC.NURSE ---
pt given 240ml of water
[2025-01-14] VITALS (33 sets, daily range): BP systolic 110–196; BP diastolic 60–108; PULSE 74–99; RESP 12–31; TEMP 36.6–36.7; O2SAT 83–100; BMI 35.3
--- NOTE | 2025-01-14 02:04 | ECG_ITS ---
[facility] Test Date: 2025-01-14 Pat Name: Andrés Dumont Department: Room: EDIP Gender: Male Block Feeder: : 1945 Requested By: Wil Lopez Order Number: [id number] Reading MD: QUINTON CHURCHILL Measurements Intervals [place] Rate: 89 P: 0 CT: 0 QRS: -43 QRSD: 75 T: 73 QT: 289 QTc: 353 Interpretive Statements ATRIAL FIBRILLATION LEFT AXIS DEVIATION [QRS AXIS < -30] LOW QRS VOLTAGE IN EXTREMITY LEADS [QRS DEFLECTION < 0.5 mV IN LIMB LEADS] PATTERN CONSISTENT WITH PULMONARY DISEASE SEPTAL MYOCARDIAL INFARCTION , PROBABLY OLD [40+ ms Q WAVE IN V1/V2] Compared to ECG 01/13/2025 10:01:11 Left-axis deviation now present Left anterior fascicular block no longer present Myocardial infarct finding still present Electronically Signed On 01-15-2025 22:29:49 CDT by QUINTON CHURCHILL [email or web address]
[2025-01-14 03:27] LABS: Alanine Aminotransferase 14 U/L (0-41); Albumin Level 2.8 g/dL (3.5-5.2); Alkaline Phosphatase 136 U/L (40-130); Anion Gap 17.7 (5-19); Aspartate Amino Transferase 18 U/L (0-40); Blood Urea Nitrogen 19 mg/dL (8-23); Calcium 8.0 mg/dL (8.5-10.5); Carbon Dioxide 22 mmol/L (22-29); Chloride 98 mmol/L (98-107); Creatinine Clr Calc Pharmacy 71.7039; Globulin 2.9 g/dL (1.3-4.6); Glucose 155 mg/dL (65-115); Magnesium 1.6 mg/dL (1.7-2.3); Osmolality Calculated 283 mOsm/kg (285-295); Potassium 3.7 mmol/L (3.5-5.1); Sodium 134 mmol/L (136-145); Total Protein 5.7 g/dL (6.6-8.7); Troponin T (5th) Once 50 ng/L (0-15)
[2025-01-14 03:29] LABS: Hematocrit 31.8 % (37-53); Hemoglobin 10.10 g/dL (11.27-16.99); Mean Corpuscular HGB Conc 31.8 g/dL (30-55); Mean Corpuscular Hemoglobin 28.6 pg (27-33); Mean Corpuscular Volume 90.1 fl (82-101); Nucleated Red Blood Cells % 0 %; Platelet Count 277 10^3/cmm (157-399); Red Blood Count 3.53 10^6/uL (3.85-5.65); White Blood Count 8.05 10^3/uL (3.29-11.43)
[2025-01-14 03:36] LABS: Thyroid Stimulating Hormone 27.46 uIU/mL (0.27-4.20)
[2025-01-14 05:12] LABS: Troponin 5 2HR 52.43 ng/L (0-15)
[2025-01-14 05:17] LABS: Troponin 5 2HR Delta 2.43 ABS# (0-10)
[2025-01-14] MEDS: FUROsemide 10 mg/mL SDV 4mL 40 MG IVP ×3 (05:54→18:46)
[2025-01-14] MEDS: polyethylene glycol 3350 Pkt 17 gm PO (05:55)
[2025-01-14 08:58] LABS: Troponin 5 6HR 56.55 ng/L (0-15)
[2025-01-14 09:00] LABS: Troponin 5 6HR Delta 6.55 ng/L (0-12)
--- OUTSIDE RECORDS SUMMARY | 2025-01-14 10:43 | XMS_ITS | Clinical Summary ---
Author Organization [facility] Address [address] [place] [address] Care Team Providers Care Facility Assistant Name Role Phone Unavailable Primary Care Provider Unavailabl e Allergies Active Allergy Reactions Criticality Noted Date Comments Lovastatin Muscle Pain,Other (S ee Comments) Low 01/13/2023 Gjolkjf-Wfs-Qqo Reductase Inhibitors Itching Low 12/30/2022 Medications pantoprazole (PROTONIX) 40 mg Tablet, Delayed Release (E.C.) Take 40 mg by mouth daily. Active rosuvastatin (CRESTOR) 40 mg tablet Take 40 mg by mouth daily. Active fluticasone propionate (FLONASE) 50 mcg/spray [place], Suspension nasal inhaler USE 2 SPRAY(S) IN [...] Data STL ABSTRACTION Provider, Abstract 10/26/2024 Telephone [facility] Vascular Surgery [place] [id number] [facility] [address] [place] [address] Mary Herrera, Appointment Needed from Last 3 Months Immunizations Immunization Administration Dates Next Due (PNEUMOVAX 23)(50 YRS UP) PN EUMOCOCCAL POLYSACCHARIDE (PPV23) 0.5 ML, IM 04/02/2017 (PREVNAR 13)(6 WKS UP) PNEUM OCOCCAL CONJUGATE (PCV13) 0.5 ML, IM 02/21/2019 (PREVNAR 20)(6 WKS UP) PNEUM OCOCCAL CONJUGATE VACCINE 20-VALENT (PCV20), POLYSACCHARIDE [id number] CONJUGATE, ADJUVANT 0.5 ML (PF) IM 04/22/2023 [...] 02/21/2019, 04/02/2017 Medical Devices Implanted Type Area Procurement Technician Device Identifier Shelf Expiration Date Model / Serial / Lot Clip Ligating [employer] Ti [id number] - Csc - [id number] Implanted:Qty: 1 on 06/15/2024 by Mary Herrera DO at [facility] Clip Right: Groin TELEFLEX- WECK CLOSURE SYS [id number] 02/27/2029 [id number] / / [id number] Clip Ligating Horizon Red [id number] - Csc - [id number] Implanted:Qty: 1 on 06/15/2024 by Mary Herrera DO at [facility] Clip Right: Groin [employer] [id number] 02/16/2029 [id number] / / [id number] Agent Hemostat Surgicel 2x3in - [id number] Implanted:Qty: 1 on 06/15/2024 by Mary Herrera DO at [facility] Hemostatic Right: Groin [employer]- [employer] [id number] 09/19/20281952S / / [id number] Lens Iol Tecnis Eyhance 22.5 [id number] - [id number] Implanted:Qty: 1 on 12/16/2022 by Edison Cabrales MD at [facility] Lens Left: Eye [employer]-J[employer] VISION 10/03/2025 [id number] / [id number] / NA Lens Iol Tecnis Eyhance 22.5 [id number] - [id number] Implanted:Qty: 1 on 12/30/2022 by Edison Cabrales MD at [facility] Lens Right: Eye [employer] 09/04/2025 [id number] / [id number] / Stent Vasc Enroute 10-8x40mm [id number] - [id number] Implanted:Qty: 1 on 06/15/2024 by Mary Herrera DO at [facility] Stent Right: Carotid [employer] [id number] 10/20/2026 [id number] 0-TCS / / [id number] Procedures Procedure Name Priority Date/Time Associated Diagnosis Comments LIPID PANEL Routine 06/12/2024 7:23 AM CDT HEMOGLOBIN A1C Routine 06/12/2024 7:23 AM CDT from Last 3 Months or Most Recently Relevant to Health Maintenance Results * (ABNORMAL) HEMOGLOBIN A1C (06/12/2024 7:23 AM CDT) HEMOGLOBIN A1C 7.5(H) <=5.6 % 06/13/2024 12:03 PM CDT [facility] EST. AVG GLUCOSE, A1C 169 mg/dL 06/13/2024 12:03 PM CDT [facility] Blood Venipuncture / Unknown 06/12/2024 7:23 AM CDT 06/12/2024 7:57 AM CDT Narrative [facility] - 06/13/2024 12:03 PM CDT HGB A1C INTERPRETATION NORMAL: <5.7% PRE-DIABETES: 5.7 - 6.4% DIABETES: 6.5% OR GREATER us Alirio Mckenzie MD CHEMISTRY ORDERABLES Final R esult [facility] CLIA # [id number] [address] [place] [id number] * (ABNORMAL) LIPID PANEL (06/12/2024 7:23 AM CDT) CHOLESTEROL 89 <200 mg/dL 06/12/2024 10:40 AM CDT [facility] TRIGLYCERIDE 101 <150 mg/dL 06/12/2024 10:40 AM CDT [facility] HDL 34(L) 40 - 59 mg/dL 06/12/2024 10:40 AM CDT [facility] LDL CALCULATED 35 <100 mg/dL 06/12/2024 10:40 AM CDT [facility] NON-HDL CHOLESTEROL 55 <130 mg/dL 06/12/2024 10:40 AM CDT [facility] Blood Venipuncture / Unknown 06/12/2024 7:23 AM CDT 06/12/2024 7:57 AM CDT Narrative [facility] [email or web address] [facility] - 06/12/2024 10:40 AM CDT TOTAL CHOLESTEROL [...] Mckenzie MD CHEMISTRY ORDERABLES Final R esult [facility] [email or web address] [facility] CLIA # [id number] [address] [place] [id number] from Last 3 Months or Most Recently Relevant to Health Maintenance Insurance MEDICARE PART A AND B [employer] SUPP ALESSIO RODGERS [id number] Advance Directives For more information, please contact: [phone] Documents on File Type Date Recorded Patient Silicator Expl anation Advance Directive POA 08/10/2024 8:19 [...]
--- OUTSIDE RECORDS SUMMARY | 2025-01-14 10:43 | XMS_ITS | Data Portability ---
Author Organization CAYETANO Jos Aly [facility], [facility] Address [address] [place] [address] Care Team Providers Care Air Commodore Name Role Phone CHA JONES Primary Care [...] Modified By Organization Details Last Modified Time 09/22/2024 [id number] edema improved form last week. sugars too low, will decrease lantus to 25mg bid. Not available 09/22/2024 12:49:04 11/03/2024 [id number] Increase zoloft to 100mg at hs to help with sleep and anxiety. Sugars reviewed fasting too low, postprandial too high. Decrease lantus to 20 units bid and start humalog 10 units with meals. Weight 2x weekly. Metolazone 5mg one time dose. BMP on Thursday. f/u in 1 week. Not available 11/03/2024 14:25:55 12/01/2024 [id number] Sugars too high, increase insulin. Edema improved, weight down 5lbs in the last week, on lasix and metolazone. Will get bmp on Thursday. [email or web address] Not available 12/01/2024 12:12:16 12/22/2024 [id number] seen in ER for pneumonia, tx wtih doxy and prednisone. Breathing improved. Edema improving. [email or web address] Not available 12/22/2024 12:47:24 01/02/2025 [id number] Admitted with weakness and facial droop. 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 Diuretics held. Will schedule lasix daily and have staff get daily weights. Labs on Thursday. Not available 01/02/2025 13:52:25 Reason for Referral None Reported. Problems Name Problem SNOMED Code Status Onset Date Resolution Date Notes Provider Name and Address Organization Details Recorded Time Foot ulcer due to type 2 diabetes mellitus 70304835495 00 Active 2022 DIABETIC TOE ULCER; Impressi on: Right toe, resolved , continue s f/u with Dr. Goodman Delmy jeter [facility], [place] 5 07:56:23 Type 2 diabetes mellitus 91680561 Active 2022 ELVIA jeter [facility], [place]andy.L.CJose Antonio 3 11:57:16 Hypercho lesterol emia 44592502 Active 2022 Delmy jeter [facility], L.L.CJose Antonio 5 07:56:23 Ulcer of toe 028552382 Active 2022 Cah Jones, [address], [address] , [facility] L.L.CJose Antonio 3 09:38:37 [facility] l hyperten sai 55316748 Active 2022 Delmy jeter [facility] L.L.CJose Antonio 5 07:56:23 Atrial fibrilla tion 86074907 Active 2023 Delmy jeter [facility], [place] AntonioCJose Antonio 5 07:55:39 Age related macular degenera tion 153658388 Active 2023 Delmy jeter [facility], [place] AntonioCJose Antonio 5 07:55:35 Congesti ve heart failure 27258303 Active 2023 Delmy jeter, [facility] 5 07:55:51 Chronic kidney disease stage 3B 796353764 Active 2023 Delmyisabell jeter, [facility] 5 07:55:45 Edema of lower extremit y 513013875 Active 2023 Delmyeduard Chujc jeter [facility] 5 07:56:23 Acute bronchit is 08787790 Completed 202306/21/2024 Delmy jeter, [facility] 5 07:55:32 Hypokale jerica 28006391 Active 2023 Delmy Mariscal [facility] 5 07:56:23 Pain of bilatera l hip joints 17457392727 444818 Active 2023 Delmy Mariscal [facility], [facility] 5 07:55:42 Gastroes ophageal reflux disease 156012684 Active 2023 Delmyisabell Mariscal [facility], [facility] 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 5 07:56:23 Abnormal gait due to muscle weakness 948980599 Active 2024 Delmy jeter [facility] 07:56:23 Right carotid artery stenosis 09066528953 9100 Active 2024 Delmy jeter [facility] 11:28:49 Chronic bronchit is 54672560 Active 2024 Delmy jeter [facility], L.L.CJose Antonio 11:28:47 Primary biliary cholangi tis 05189558 Active 2024 Cha Jones, [address], [address] , [facility], L.L.CJose Antonio 11:27:33 Difficul ty sleeping 389375082 Active 2024 Rafiq jeter [facility] 17:35:55 Closed fracture of hip 131631514 Active 2024 ERIC jeter [facility] 16:41:22 Bilatera l lower limb edema 578458108 Active 2024 ERIC jeter [facility] 12:49:21 Pneumoni a 556654538 [facility] 20[facility] 12:47:01 Notes:Some problems listed i n Documents: #[id number], #[id number], #[id number], #[id number] could not be added to this patient's chart. Please review these documents and add these problems to the patient's chart manually as needed. Problem Notes None recorded. Procedures Surgical History Date Name Laterality Status Provider Name and Address Organization Details Recorded Time tonsillectomy completed ALEXIA BURCIAGA [facility], [place] 05/25/2024 11:58:08 Cholecystectomy completed [facility]/25/2024 11:58:14 Imaging Results None recorded. Procedure Notes None recorded. Medical Equipment None Reported. Allergies Allergen ID Allergen Name Allergen Category Reaction Reaction Severity Criticality Documentation Date Start Date Code Code System Note Provider Name and Address Organization Details Recorded Time 59 lovastati n medicatio n Not available Not available Not available 06/06/2022 6472 RxNorm Sondra Quick steffany [facility], [employer] 3 12:00:13 Medications Name Sig Start Date Stop Date Status Note LastModified by Organization Details LastModified Time Prescript ion - New 09/22 completed Not Available Not Available Not Available Prescript ion - Prior Authoriza tion Request active Charlton 5/325 Not Available Not Available Not Available [...] Not Available loratadin e daily 12/24 completed 48806; Recorded 10/16/19 22 2:59PM by Elvia Singh (Authori michelle through [employer] , DO), Office Visit; Not Available Not Available Not Available Lasix every morning 12/24 completed DM/sd; 91878; Recorded 12/12/19 22 1:18PM by Elvia Singh (Authori michelle through [employer] , DO), Refill Request; Refill Quantity : 30; Tablet; Not Available Not Available Not Available fluconazo le daily 12/24 completed 0; Recorded 06/04/19 23 11:43AM by Pina Smart, Office Visit; Not Available Not Available Not Available carvedilo l two times daily 12/24 completed 38954; Recorded 02/26/20 22 11:07AM by Pina Smart (Authori michelle through Cha Jones , DO), Office Visit; Refill Quantity : 60; Tablet; Not Available Not Available Not Available hydralazi ne three times daily 12/24 completed DM/sd; 99480; Recorded 01/22/20 22 10:41AM by Rafiq Medellin (Authori michelle through Cha Jones , DO), Office Visit; Refill Quantity : 0; Not Available Not Available Not Available lisinopri l daily 12/24 completed 35973; Recorded 11/13/19 9:23AM by Rafiq Medellin (Authori michelle through [employer] , DO), Office Visit; Refill Quantity : 90; Tablet; Not Available Not Available Not Available sildenafi l daily 12/24 completed 29385; Recorded 10/16/19 22 2:59PM by Elvia Singh (Authori zed through [employer] , DO), Office Visit; Not Available Not Available Not Available glipizide daily 12/24 completed 69203; Recorded 11/13/19 9:23AM by Rafiq Medellin (Authori zed through [employer] , DO), Office Visit; Not Available Not Available Not Available multivita min active Not Available Not Available Not Available Potassium Chloride ER two times daily 12/24 completed DM/sd; 10893; Recorded 03/27/19 1:52PM by Elvia Singh (Authori zed through [employer] , DO), Annotati on/Adden dum; Refill Quantity [...] Available Eliquis two times daily 12/24 completed 36059; Recorded 11/13/19 9:23AM by Rafiq Medellin (Authori zed through [employer] , DO), Office Visit; Refill Quantity : 60; Tablet; Not Available Not Available Not Available potassium chloride ER 20 mEq tablet,ex tended release Take 1 tablet every day by oral route. 06/21 completed Not Available Not Available Not Available FreeStyle Kalani 2 Sensor as directed 05/25 completed Not Available Not Available Not Available FreeStyle Kalani 2 Jackson as directed 05/25 completed Not Available Not [...] [degF] 97 % 97 % 140/70 mm[Hg] [facility] 5 12:43:37 Date Recorded Body height Heart rate Respiratory rate Body temperature Oxygen saturation Oxygen saturation in Arterial blood by Pulse oximetry Systolic And Diastolic Provider Name and Address Organization Details Last Updated DateTime 5 187.96 cm 65 /min 20 /min 97.5 [degF] 95 % 95 % 136/70 mm[Hg] [facility] 5 13:55:10 Date Recorded Body height Heart rate Respiratory rate Body temperature Oxygen saturation Oxygen saturation in Arterial blood by Pulse oximetry Systolic And Diastolic Provider Name and Address Organization Details Last Updated DateTime 5 187.96 cm 68 /min 18 /min 97.8 [degF] 98 % 98 % 142/75 mm[Hg] [facility] 5 12:09:25 Date Recorded Body height Heart rate Respiratory rate Body temperature Oxygen saturation Oxygen saturation in Arterial blood by Pulse oximetry Systolic And Diastolic Provider Name and Address Organization Details Last Updated DateTime 5 187.96 cm 67 /min 20 /min 98.5 [degF] 97 % 97 % 165/70 mm[Hg] [facility] 5 12:45:04 Date Recorded Body height Provider Name an d Address Organization Details Last Updated DateTime 01/02/2025 187.96 cm ERIC JARAMILLO [facility] 01/02/2025 13:49:17 Social History Question Answer Notes LastModified by Organizat ion Details LastModified Time Tobacco Smoking Status Former Smoker Edvin jeter [facility] 10/05/2023 09:45:48 What Is Your Level Of Caffeine Consumption? Moderate Coffee [email or web address] Information not available 05/25/2024 How Many Years Have You Smoked Tobacco? 20 Information not available 10/05/2023 Sex: Unknown Functional Status Question Answer Note LastModified by Organizat ion Details LastModified Time Do you use any illicit or recreational drugs? No Information not available 08/14/2022 Do you or have you ever used any other forms of tobacco or nicotine? No [email or web address] Information not available 08/14/2022 What is your level of alcohol consumption? None [email or web address] Information not available 08/14/2022 Are you currently employed? No [email or web address] Information not available 05/25/2024 Are you able to walk independently without assistance or assistive devices? YESASSIST walker [email or web address] Information not available 05/25/2024 Are you able to care for yourself independently? Yes [email or web address] Information not available 05/25/2024 Mental Status None recorded. Family History Relationship Description Onset Age of this Age Resolved Age Notes LastModified by Organization Details LastModified Time Father Diabetes mellitus [email or web address] Not available 05/25 11:55:50 Father Motor vehicle accident age 50 Not available 05/25/2024 11:56:43 Mother Malignant neoplasm of colon age 73 [email or web address] Not available 05/25/2024 11:56:22 Paternal Grandmother Natural age 102 [email or web address] Not available 05/25/2024 11:57:08 Medical History Condition [...] zoster recombinant 2 completed Cha Jones DO [address] [place] [address], [address], [facility] 04/22/2023 11:34:44 zoster recombinant 2 completed Cha Jones DO [address] [place] [address], [id number], [facility] 04/22/2023 11:34:44 Influenza, high-dose, quadrivalent, PF 2 completed Cha Jones DO [address] [place] [address], [address], [facility] 04/22/2023 11:34:45 COVID-19, mRNA, LNP-S, PF, 100 mcg/0.5mL dose or 50 mcg/0.25mL dose 1 completed Cha Jones DO [address] [place] [address], [address], [facility] 04/22/2023 11:34:45 COVID-19, mRNA, LNP-S, PF, 100 mcg/0.5mL dose or 50 mcg/0.25mL dose 1 completed Cha Jones DO [address] [place] [address], [address], [facility] 04/22/2023 11:34:45 COVID-19, mRNA, LNP-S, PF, 100 mcg/0.5mL dose or 50 mcg/0.25mL dose 1 completed Cha Jones DO [address] [place] [address], [address], [facility] 04/22/2023 11:34:45 COVID-19, mRNA, LNP-S, bivalent, PF, 50 mcg/0.5 mL or 25mcg/0.25 mL dose 2 completed Cha Jones DO [address] [place] [address], [address], [facility] 04/22/2023 11:34:45 pneumococcal polysaccharide PPV23 8 completed Cha Jones DO [address] [place] [address], [address], [facility] 04/22/2023 11:34:45 Pneumococcal conjugate PCV 13 9 completed Cha Jones DO [address] [place] [address], [address], [facility] 04/22/2023 11:34:45 Influenza, high-dose, quadrivalent, PF 3 completed Delmy jeter [facility] 06/21/2024 09:00:08 COVID-19, mRNA, LNP-S, PF, 50 mcg/0.5 mL 3 completed Delmy jeter [facility] 06/21/2024 09:00:08 Pneumococcal conjugate PCV20, polysaccharide DXZ160 conjugate, adjuvant, PF 4 completed Cha Jones DO [address] [place], [address], [facility] 04/23/2023 08:45:56 Influenza, split virus, trivalent, PF 4 completed PINA jeter, [facility] 12/28/2023 11:39:19 Past Encounters Encounter ID Performer Location Encounter Start Date Encounter Closed Date Diagnosis/Indication Diagnosis SNOMED-CT Code Diagnosis ICD10 Code Diagnosis IMO Codes Diagnosis Note [id number] Cha Jones DO [facility] ([facility]) [address] [place] [address] 08/14/2022 08:51:29 08/14/2022 10:00:37 Type 2 diabetes mellitus 05801956 E11.69 E11.42 E11.22 a1c of 8.4 in May. pt has struggled with uncontroll ed and variable glucose levels for years. can be 70 up to 300. hard to control. pt has worked on diet and weight management . will repeat labs today. continue with podiatry. pt to continue meds: Glipizide 10mg and Lantus 32 units bid. will star Essential hypertension 29481792 I10 stable. conitnue: Amlodipine 10mg, Carvedilol 12.5mg bid, Hydralazin e 10mg tid, Lisinopril 40mg Ulcer of toe 066198575 L 97.509 currently healed. not seeing wound care anymore. Followed by Podiatry, Dr. Hensley. continues with diabetic shoes and daily foot care. Mixed hyperlipidemia 267 699437 E78.2 Stable. Will repeat labs. Continue rosuvastat in. Counseled on diet and exercise. Edema of l ower extremity 481950319 R60.0 concern for fluid overload. pt with hx of afib, I do not find hx of chf on available records. will get further records. pt to start lasix daily for 1 wk. limit salt. monitor HR and afib. Return to office with no improvemen t or any problems. Go to ER with severe worsening or severe problems. [id number] Cha Jones DO [facility] ([facility]) [address] [place] [address] 12/24/2022 11:01:31 12/24/2022 13:53:03 Benign essential hypertension 9923607 I10 Hypercholesterolemia 136 80653 E78.00 Stable. Will repeat labs next appt. Continue Atorvastat in. Counseled on diet and exericse. Type 2 ciro betes mellitus 79343634 E11.69 E11.42 E11.22 A1c in may improved to 6.8.contin ue with podiatry. pt to continue meds: Glipizide 10mg and Lantus 32 units bid. will repeat labs. Essential hypertension 45671433 I10 Blood pressure getting low multiple times. We will decrease hydralazin e down to 25mg TID. conitnue: Amlodipine 10mg, Carvedilol 12.5mg bid, Lisinopril 40mg monitor blood pressure closely at home. [id number] JACQUI STRATTON [facility] ([facility]) [address] [place] [address] 03/07/2023 11:53:03 03/14/2023 07:29:37 Viral screening 763101237 Z11.52 COVID-19 255865069 U07.1 [id number] Cha Jones DO [facility] ([facility]) [address] [place] [address] 04/22/2023 10:30:43 04/22/2023 12:34:01 Essential hypertension 50184473 I10 Blood pressure getting low multiple times. We will decrease hydralazin e down to 25mg TID. continue: Amlodipine 10mg, Carvedilol 12.5mg bid, Lisinopril 40mg monitor blood pressure closely at home.- Continue to monitor, counseled on fluid intake, stay well hydrated, log BP and HR when having symptoms, also log glucose. Hypercholesterolemia 136 08917 E78.00 Stable. Continue Atorvastat in. Counseled on diet and exercise. Foot ulcer due to type 2 diabetes mellitus 2265061946 100 E11.621 04/22/23- healed, continues seeing Podiatry. Atrial fibrillation 4943 6004 I48.91 Continue Xarelto and Carvedilol , following with Cardiology . Type 2 ciro betes mellitus 86686319 E11.69 E11.42 E11.22 04/22/23- A1c 7.2 on 12/24/22, will repeat lab today. Counseled on diet, exercise. Age relate d macular degeneration 649477695 H35.3290 Continue care with Ophthalmol ogist. Congestive heart failure 73893524 I11.0 Continue following with Cardiology . Chronic mireille dney disease stage 3B 310215980 N18.32 E26.1 Labs today. Edema of l ower extremity 868403113 R60.0 04/22/23- continues Furosemide . Allergic rhinitis 885115 04 J30.9 Counseled continue nasal spray, daily allergy med Claritin/ Zyrtec, switch from what he is using now. Active or passive immunization 928622752 Z23 Flu vax UTD Dec 2022. Prevnar 20 today. [id number] Cha Jones DO [facility] ([facility]) [address] [place] [address] 05/15/2023 10:21:46 05/15/2023 13:51:50 Type 2 diabetes mellitus 54655391 E11.69 E11.42 E11.22 glocose improved, will start CGMS. counseled Chronic mireille dney disease stage 3B 491764953 N18.32 E26.1 improved slightly. counseled on fluid intake, diet, glucose management . Essential hypertension 72465437 I10 Blood pressure getting low multiple times. We will decrease hydralazin e down to 25mg BID. continue: Amlodipine 10mg, Carvedilol 12.5mg bid, Lisinopril 40mg monitor blood pressure closely at home.- Continue to monitor, counseled on fluid intake, stay well hydrated, log BP and HR when having symptoms, also log glucose. [id number] Cha Jones DO [facility] ([facility]) [address] [place] [address] 06/10/2023 15:27:26 06/10/2023 16:47:08 Acute bronchitis 71946957 J20.9 Counseled continue Doxy, start Prednisone , Benzonatat e. Counseled Prednisone may increase glucose. [id number] Cha Jones DO [facility] ([facility]) [address] [place] [address] 06/16/2023 09:40:54 06/16/2023 14:02:41 Type 2 diabetes mellitus 08752641 E11.69 E11.42 E11.22 06/16/23- Reviewed and discussed glucose log, improved until he started Prednisone , expect to come back down after Prednisone , continue current tx. Will try CGM sample today, Dexcom, insurance won't cover Kalani. Essential hypertension 02706537 I10 06/16/23- reviewed and discussed BP log, stable, continue current tx. [id number] Cha Jones DO [facility]) [address] [place] [address] 07/15/2023 10:59:07 07/15/2023 11:42:02 Type 2 diabetes mellitus 71953675 E11.69 E11.42 E11.22 07/15/23- Running 200's all [...] sample today, Dexcom, insurance won't cover Kalani. [id number] Cha Jones DO [facility]) [address] [place] [address] 07/22/2023 10:25:41 07/22/2023 12:06:36 Type 2 diabetes mellitus 14648818 E11.69 E11.42 E11.22 07/22/23- Tolerating CGM, feels [...] today, Dexcom, insurance won't cover Kalani. Hypokalemia 35616764 E87 .6 Continues Lasix, will refill Potassium. Adult heal th examination 747716648 Z00.00 Reviewed and discussed recent lab, elevated liver enzymes, Hepatitis screening today. Counseled on diet, exercise, weight loss. Hypercholesterolemia 136 36955 E78.00 Counseled decrease Rosuvastat in from 40mg to 20mg daily d/t liver enzymes. Liver enzy mes outside reference range 463464119 R94.5 Reviewed lab, Hepatitis screening today, repeat lab in 4 months. [id number] Cha Jones DO [facility]) [address] [place] [id number] 09/23/2023 10:43:22 09/23/2023 18:00:27 Type 2 diabetes mellitus 34359852 E11.69 E11.42 E11.22 09/23/23- Reviewed CGM readings, [...] Dexcom, insurance won't cover Kalani. Essential hypertension 82693813 I10 09/23/23- stable, continue current tx.06/16/23 - reviewed and discussed BP log, stable, continue current tx. [id number] JACQUI BROWN [facility] [address] [place] [address] 10/05/2023 09:41:48 10/05/2023 12:13:36 Acute pansinusitis 6704954 J01.40 Discussed use of antibiotic . Take with food.May use Virgilio's nasal inserts and also apply on chest. Push oral fluids. Consider nasal saline rinses and otc decongesta nt.Use tylenol/mo raysa for reno. [id number] Cha Jones DO [facility]) [address] [place] [address] 10/12/2023 11:30:35 10/12/2023 13:41:05 Acute bronchitis 22398110 J20.9 No significan t improvemen ts with Augmentin. Will switch to doxycyclin e and add prednisone . Counseled. Return with worsening. [id number] Cha Jones DO [facility]) [address] [place] [address] 11/17/2023 11:02:02 11/17/2023 14:19:34 Hypokalemia 49099455 E87.6 11/17/23- Reviewed recent lab, Lasix 40mg daily and Potassium 20meq daily for 5 days. Counseled on use of Potassium when taking Lasix. Essential hypertension 93968416 I10 11/17/23- counseled resume Lisinopril 20mg daily, had stopped it after [facility] stay. 4- stable, continue current tx.06/16/23 - reviewed and discussed BP log, stable, continue current tx. Type 2 ciro betes mellitus 90329663 E11.69 E11.42 E11.22 11/17/23- A1c 7.4 yesterday, 11/16/23, up from 7.1 on 07/20/23, advised resume DM meds, was taken off these during [facility] stay. Counseled on diet, exercise.- Reviewed CGM [...] Kalani. Chronic ki dney disease stage 3B 453690772 N18.32 E26.1 monitoring . Congestive heart failure 06603732 I11.0 Echo per [facility] 11/14/23: Summary and Conclusion :- Left ventricle: [...] worsening SOB. F/u next week, repeat lab. [id number] Cha Jones DO [facility]) [address] [place] [id number] 11/24/2023 11:47:09 11/25/2023 11:01:59 Chronic kidney disease stage 3B 669275394 N18.32 E26.1 monitoring . [id number] Cha Jones DO [facility]) [address] [place] [address] 11/25/2023 11:09:55 11/25/2023 17:47:32 Hypokalemia 61052368 E87.6 11/25/23- repeat lab with K+ 3.1, counseled take Potassium 20meq daily.11/16- Reviewed recent lab, Lasix 40mg daily and Potassium 20meq daily for 5 days. Counseled on use of Potassium when taking Lasix. Essential hypertension 44770849 I10 11/17/23- counseled resume Lisinopril 20mg daily, had stopped it after [facility] stay. 4- stable, continue current tx.06/16/23 - reviewed and discussed BP log, stable, continue current tx. Chronic ki dney disease stage 3B 519737431 N18.32 E26.1 monitoring . Congestive heart failure 47591416 I11.0 Echo per [facility] 11/14/23: Summary and Conclusion : - Left [...] 20mg daily with Potassium. F/u 1 month. [id number] Cha Jones DO [facility]) [address] [place] [id number] 12/28/2023 10:19:43 12/28/2023 18:01:00 Hypokalemia 05349775 E87.6 12/28/23: pt has decreased KCL to 10meq daily. will repeat labs today 4- repeat lab with K+ 3.1, counseled take Potassium 20meq daily.11/16- Reviewed recent lab, Lasix 40mg daily and Potassium 20meq daily for 5 days. Counseled on use of Potassium when taking Lasix. Essential hypertension 12439063 I10 11/17/23- counseled resume Lisinopril 20mg daily, had stopped it after [facility] stay. 4- stable, continue current tx.06/16/23 - reviewed and discussed BP log, stable, continue current tx. Chronic ki dney disease stage 3B 147667681 N18.32 E26.1 monitoring , CR increased last visit, will repeat labs. counseled Congestive heart failure 18563166 I11.0 12/28/23: cotinue on furosemide and KCL. [...] SOB. F/u next week, repeat lab.Echo per [facility] 11/14/23: Summary and Conclusion : - Left [...] is 13mm Hg. Active or passive immunization [id number] Z23 Flu vax UTD Dec 2022. Prevnar 20 today. Pain of bi lateral hip joints [id number] 8940130 M25.551 M25.552 pain appears to be from lower back, SI b/l per exam. not hip joints. counseled on exercises and stretching . consider xrays if not improving. [id number] Cha Jones DO [facility]) [address] [place] [address]50-785 5 02/23/2024 09:56:23 02/24/2024 12:36:21 Essential hypertension 52301688 I10 11/17/23- counseled resume Lisinopril 20mg daily, had stopped it after [facility] hospital stay. 4- stable, continue current tx.06/16/23 - reviewed and discussed BP log, stable, continue current tx. Foot ulcer due to type 2 diabetes mellitus 5682770762 100 E11.621 04/22/23- healed, continues seeing Podiatry. Hypercholesterolemia 136 34353 E78.00 Counseled decrease Rosuvastat in from 40mg to 20mg daily d/t liver enzymes. [id number] Cha Jones DO [facility] ([facility]) [address] [place] [address] 23342-500 5 03/01/2024 10:16:23 03/02/2024 14:15:42 Hypokalemia 80813982 E87.6 12/28/23: pt has decreased KCL to 10meq daily. will repeat labs today 4- repeat lab with K+ 3.1, counseled take Potassium 20meq daily.11/16- Reviewed recent lab, Lasix 40mg daily and Potassium 20meq daily for 5 days. Counseled on use of Potassium when taking Lasix. Essential hypertension 77352975 I10 03/01/24- Continue current tx, Lisinopril , refill Triamteren e.11/17/23- counseled resume Lisinopril 20mg daily, had stopped it after [facility] hospital stay. 4- stable, continue current tx.06/16/23 - reviewed and discussed BP log, stable, continue current tx. Chronic ki dney disease stage 3B 299403288 N18.32 E26.1 monitoring , reviewed and discussed renal function lab today. Congestive heart failure 57790985 I11.0 12/28/23: continue on furosemide and KCL. [...] SOB. F/u next week, repeat lab.Echo per [facility] 11/14/23: Summary and Conclusion : - Left [...] is 13mm Hg. Gastroesop hageal reflux disease 076514775 K21.9 Stable, refill Pantoprazo le. Type 2 ciro betes mellitus 83831584 E11.69 E11.42 E11.22 03/01/24- Reviewed and discussed A1c, counseled on diet, exercise. Continue current tx, Glipizide, Lantus.10/22 10/13- A1c 7.4 yesterday, 11/16/23, up from 7.1 on 07/20/23, advised resume DM meds, was taken off these during [facility] stay. Counseled on diet, exercise.- Reviewed CGM [...] sample today, Dexcom, insurance won't cover Kalani. [id number] JACQUI STRATTON [facility]) [address] [place] [address] 75853-681 5 05/25/2024 10:34:49 05/25/2024 12:40:56 Cerebrovascular accident 038928291 I63.9 Recent hospitaliz ation. [id number] Cha Jones DO [facility]) [address] [place] [address] 74494-299 5 06/02/2024 09:35:34 06/03/2024 13:12:00 CVA - cerebrovascular accident due to cerebral artery occlusion 551768643 I63.50 occurred 05/25/2024: with residual RUE and LLE weakness and mild to moderate dysarthria . Had ECHO and Carotid US in hospital.c ontinue on Xarelto and increased rosuvastat in. will add plavix for the next few wks.keep f/u neurology. Will order ST with MBS. Abnormal g ait due to muscle weakness 348233478 M62.81 s/p CVA that occurred 05/25/2024: with residual RUE and LLE weakness and mild to moderate dysarthria .contine PT and OT, order for walker. 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 will get MBS and ST. counseled [id number] Cha Jones DO [facility]) [address] [place] [address] 59319-276 5 06/21/2024 08:40:51 06/21/2024 14:05:57 Hypokalemia 54413894 E87.6 07/04/24: reviewed labs, stable.12/28/23: pt has decreased KCL to 10meq daily. will repeat labs today 4- repeat lab with K+ 3.1, counseled take Potassium 20meq daily.11/16- Reviewed recent lab, Lasix 40mg daily and Potassium 20meq daily for 5 days. Counseled on use of Potassium when taking Lasix. Atrial fibrillation 6918 6004 I48.91 Continue Xarelto and Carvedilol , following with Cardiology . CVA - cere brovascular accident due to cerebral artery occlusion 632575984 I63.50 occurred 05/25/2024: with residual RUE and LLE weakness and mild to moderate dysarthria . Had ECHO and Carotid US in hospital.c ontinue on Xarelto and increased rosuvastat in. will add plavix for the next few wks.keep f/u neurology. Will order ST with MBS. Right barlow tid artery stenosis 0835510981 27507 I65.21 s/p endovascul ar stent may 2024 after 2nd CVA. [facility] Chronic ki dney disease stage 3B 249813820 N18.32 E26.1 monitoring , reviewed and discussed renal function lab today. Essential hypertension 27077211 I10 06/21/24: continue lisinopril , hydralazin e, carvedilol and diazide.- Continue current tx, Lisinopril , refill Triamteren e.11/17/23- counseled resume Lisinopril 20mg daily, had stopped it after [facility] stay. 4- stable, continue current tx.06/16/23 - reviewed and discussed BP log, stable, continue current tx. Type 2 ciro betes mellitus 70357725 E11.69 E11.42 E11.22 03/01/24- Reviewed and discussed A1c, counseled on diet, exercise. Continue current tx, Glipizide, Lantus.10/22 10/13- A1c 7.4 yesterday, 11/16/23, up from 7.1 on 07/20/23, advised resume DM meds, was taken off these during [facility] stay. Counseled on diet, exercise.- Reviewed CGM [...] sample today, Dexcom, insurance won't cover Kalani. Gastroesop hageal reflux disease 260073111 K21.9 06/21/24: worsening, will continue Pantoprazo le. will get MBS. likely need ST.counseling aide ed on soft diet, chewing, swallowing . Chronic bronchitis 84538 004 J42 Congestive heart failure 93861812 I11.0 06/21/24: reviewed records as below. continue [...] ulcer due to type 2 diabetes mellitus 9890204926 100 E11.621 healed, continues seeing Podiatry. Hypercholesterolemia 136 35361 E78.00 conitnue Rosuvastat in 40mg. will monitor LFTs. Age relate d macular degeneration 274870942 H35.3290 Continue care with Ophthalmol ogist. [id number] Cha Jones DO [facility]) [address] [place] [address] 07/04/2024 10:41:26 07/04/2024 12:24:48 Atrial fibrillation 32998479 I48.91 Continue Xarelto and Carvedilol , following with Cardiology . CVA - cere brovascular accident due to cerebral artery occlusion 475646774 I63.50 occurred 05/25/2024: with residual RUE and LLE weakness and mild to moderate dysarthria . Had ECHO and Carotid US in hospital. MBS and ST pending.co ntinue on Xarelto and increased rosuvastat in and plavix.uzma alcazar f/u neurology. Type 2 ciro betes mellitus 74544580 E11.69 E11.42 E11.22 07/04/24: some low glucose, will decrease lantus to 20u BID. monitor closely. f/u 1 mt. sooner with problems.1 05/02/23- Reviewed and discussed A1c, counseled on diet, exercise. Continue current tx, Glipizide, Lantus.10/22 10/13- A1c 7.4 yesterday, 11/16/23, up from 7.1 on 07/20/23, advised resume DM meds, was taken off these during [facility] stay. Counseled on diet, exercise.- Reviewed CGM [...] won't cover Kalani. Primary bi liary cholangitis 32265229 K74.3 DX from Miri MENDOZA NP, 06/2024 with elevated Alk phos with + mitochondi ra M2 ab and JACQUE. started on Ursodiol. I reviewed records. continue urrsodiol. will monitor LFTs. counseled pt. [id number] Cha Jones DO [facility]) [address] [place] [address] 07/20/2024 16:27:28 07/25/2024 12:44:51 CVA - cerebrovascular accident due to cerebral artery occlusion 158031153 I63.50 07/20/24: Discussed MBS results, continue seeing ST, working on swallowing . occurred 05/25/2024: with residual RUE and LLE weakness and mild to moderate dysarthria .continue on Xarelto and increased rosuvastat in and plavix.uzma alcazar f/u neurology. Difficulty sleeping 3013 76957 G47.9 976447 07/20/24: Counseled likely d/t increased stress and anxiousnes s r/t current state of health, will start Escitalopr am. Counseled on diagnosis, treatment options including medication s and possible side effects. Type 2 ciro betes mellitus 62378594 E11.69 E11.42 E11.22 07/20/24: Reviewed and discussed [...] DM meds, was taken off these during [facility] stay. Counseled on diet, exercise.- Reviewed CGM [...] sample today, Dexcom, insurance won't cover Kalani. 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 5593314013 22490 I69.322 Closed fra cture of hip 499450410 S72.001S 9863035 [id number] Juancarlos Lassiter DO [facility]) [address] [place] [address] 25528-949 5 09/05/2024 13:24:33 09/12/2024 17:20:38 Bilateral lower limb edema 986746565 R60.0 5030584396 [id number] Juancarlos Lassiter DO [facility] ([facility]) [address] [place] [address] 79919-581 5 09/15/2024 07:56:39 09/20/2024 14:25:30 Edema of lower extremity 056292910 R60.0 [id number] Juancarlos Lassiter DO [facility]) [address] [place] [address] 09675-155 5 09/22/2024 08:02:00 09/27/2024 08:13:45 Edema of lower extremity 384234923 R60.0 [id number] Juancarlos Lassiter [facility] ([facility]) [address] [place] [address] 11/03/2024 11:49:57 11/07/2024 17:46:59 Edema of lower extremity 095516504 R60.0 CVA - cere brovascular accident due to cerebral artery occlusion 412023107 I63.50 Congestive heart failure 92713602 I11.0 [id number] Juancarlos LassiterDO [facility]) [address] [place] [address] 12/01/2024 11:46:53 12/06/2024 10:05:32 Edema of lower extremity 569885486 R60.0 Type 2 ciro betes mellitus 83571805 E11.69 E11.42 E11.22 [id number] Juancarlos Maikol [facility] ([facility]) [address] [place], [place] [address] 12/22/2024 12:38:28 12/27/2024 08:38:20 Pneumonia 334805207 J18.9 48701705 [id number] Juancarlos Lassiter [facility]) [address] [place] [address] 5 01/02/2025 13:31:44 01/04/2025 08:08:13 Post-discharge follow-up 648072487 Z09 534011 History of cerebrovascular accident 186273064 Z86.73 131576 Chronic at rial fibrillation 230651862 I48.20 426430 Congestive heart failure 50728044 I11.0 Essential hypertension 71647459 I10 Type 2 ciro betes mellitus 69430006 E11.69 E11.42 E11.22 Chronic ki dney disease stage 3B 046154641 N18.32 E26.1 Health Concerns Section Related Observation LastModified by Organization Detai ls LastModified Time None Recorded Concern Status LastModified by Organization Details LastModified Time None Recorded Advance Directives Directive None Recorded Payers Insurance Date Sequence Insurance Name Policy Number Policy Mc Covered Member ID Mc Member ID Guarantor Name 01/02/2025 2 [employer] (MEDICARE SUPPLEMENT) Andrés Dumont [id number] Andrés Dumont 12/22/2024 1 [place] Andrés Dumont [id number] Andrés Dumont 06/18/2022 2 [employer] ([facility] Andrés Dumont [id number] Andrés Dumont 12/22/2024 [place] - [place] A - [facility] (MEDICARE) Andrés Dumont [id number] Andrés Dumont Notes Date Note Type Note Provider Name and Address Organization Details Recorded Time 5 text/html HypertensionReported by PatientHPIFor severity, patient reportsgrade 1 (130-139/80-89). For duration, patient reportshas noted for years. For alleviating factors, patient reportsmedication.ROS as noted in the HPI f/u on edmea. Juancarlos Lassiter DO [address] [place] [address], [phone], [facility] [place] 09/26/2024 17:17:33 5 text/html HypertensionReported by PatientHPIFor severity, patient reportsgrade 1 (130-139/80-89). For duration, patient reportshas noted for years. For alleviating factors, patient reportsmedication.ROS as noted in the HPI check up, c/o not sleeping well and edema. Juancarlos Lassiter DO [address] [place] [address], [phone], [facility] [place] 11/06/2024 14:27:34 5 text/html HypertensionReported by PatientHPIFor severity, patient reportsgrade 1 (130-139/80-89). For duration, patient reportshas noted for years. For alleviating factors, patient reportsmedication.ROS as noted in the HPI check up, c/o not sleeping well and edema. Juancarlos Lassiter DO [address] [place] [address], [phone], [facility] [place] 12/05/2024 14:18:32 5 text/html HypertensionReported by PatientHPIFor severity, patient reportsgrade 1 (130-139/80-89). For duration, patient reportshas noted for years. For alleviating factors, patient reportsmedication.ROS as noted in the [facility] ER follow up, seen for SOB. Juancarlos Lassiter DO [address] [place] [address], [phone], [facility], [place] 12/26/2024 14:35:11 5 text/html HypertensionReported by PatientHPIFor severity, patient reportsgrade 1 (130-139/80-89). For duration, patient reportshas noted for years. For alleviating factors, patient reportsmedication.ROS as noted in the [facility] hospital follow up Juancarlos Lassiter DO [address] [place] [address], [phone], [facility], [place] 01/02/2025 15:23:39
--- OUTSIDE RECORDS SUMMARY | 2025-01-14 10:43 | XMS_ITS | Clinical Summary ---
Author Organization [facility] Facility Address [address] [place] [address] Care Team Providers Care Repairer Screen Crusher Name Role Phone Unavailable Primary Care Provider [...] Description 11/22/2024 10:30 AM CDT Office Visit [facility] [address] [place] [address] Cassidy Alvarado NP Essential hypertension (Primary Dx); Diabetes mellitus without mention of complication, type II or unspecified type, not stated as uncontrolled (HCC); Longstanding persistent atrial fibrillation (HCC); Chronic kidney disease stage 3B (HCC) 11/22/2024 Documentation Only [facility], [facility] [address] [place] [address] Camasse, Tess 11/22/2024 Documentation Only [facility], [facility] [address] [place] [phone] Camasse, Tess 11/16/2024 Telephone [facility] [address] [place] [phone] Sangeetha Pollard MD 11/16/2024 Documentation Only [facility], [facility] [address] [place] [address] Camasse, Tess 11/11/2024 Telephone [facility] [address] [place] [phone] Sangeetha Pollard MD from Last 3 Months [...] st Contact Info) Description 2025 10:30 AM 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 Office Visit [facility] [address] [place] [address] Cassidy Alvarado, SELLING UNDERWRITER [address] [address] Health Maintenance Due Date Last [...] ORDERABLES Final Re sult Performing Organization Address [facility]/ZIP Co de Phone Number PRINT/EXTERNAL (NON-INTERFACED LABS) * PTH, intact (11/18/2024 9:25 AM CDT) Parathyroid Hormone, Intact 140.8 pg/mL PRINT/ARMATURE BANDER AL (NON-INTERFACE D LABS) Blood Venous blood / Unknown 11/18/2024 9:25 AM CDT Sangeetha Pollard MD LAB BLOOD ORDERABLES Final Re sult Performing Organization Address [facility]/ZIP Co de Phone Number PRINT/EXTERNAL (NON-INTERFACED [...] mg/dL PRINT/EXTERNAL (NON-INTERFACE D LABS) eGFR Non-Afr Cypriot 42.5 PRINT/EXTERNAL (NON-INTERFACE D LABS) Blood Venous blood / Unknown 11/18/2024 9:25 AM CDT us Sangeetha Pollard MD LAB BLOOD ORDERABLES Final Re sult PRINT/EXTERNAL (NON-INTERFACED LABS) from Last 3 Months Insurance Medicare [employer] [place] [place] [id number]
--- OUTSIDE RECORDS SUMMARY | 2025-01-14 10:43 | XMS_ITS | Patient Health Record ---
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[employer] Children: x2 Living with: spouse Level of Education: Finished hig h school Living Situation: Home Section Notes: Bahai: Jehovah Witness Smoked 1ppd from [age] y/o Bahai: Jehovah Witness Smoked 1ppd from 18-27 y/o Bahai: Jehovah Witness Smoked 1ppd from 18-27 y/o Bahai: Jehovah Witness Smoked 1ppd from 18-27 y/o Bahai: Jehovah Witness Smoked 1ppd from 18-27 y/o Bahai: Jehovah Witness Smoked 1ppd from 18-27 y/o Bahai: Jehovah Witness Smoked 1ppd from 18-27 y/o Bahai: Jehovah Witness Smoked 1ppd from 18-27 y/o Problems Problem Type SNOMED Code ICD Code Onset Dates Problem Status W/U Status Risk Notes Problem Diabetic renal disease (977942857) Type 2 diabetes mellitus with diabetic chronic kidney disease (E11.22) Active confirmed Problem Chronic kidney disease due to hypertension (320350857898656) Hypertensive chronic kidney disease with stage 1 through stage 4 chronic kidney disease, or unspecified chronic kidney disease (I12.9) Active confirmed Problem Hyperparathyroidism (57804098) Hyperparathyroidism (E21.3) Active confirmed Problem Benign hypertension (58190560) Hypertension, benign (I10) Active confirmed Problem Vitamin D deficiency (91312922) Vitamin D deficiency (E55.9) Active confirmed Problem Diabetic neuropathy (880248466) Diabetic neuropathy (E11.40) Active confirmed Problem Sleep apnea (44641091) Sleep apnea (G47.30) Active confirmed Problem Diabetes mellitus (42906762) Diabetes mellitus (E11.9) Active confirmed Problem Chronic kidney disease stage 3B (disorder) (439302952) Chronic kidney disease, stage 3b (N18.32) Active confirmed Plan Of Treatment Pending Test Test Name Order Date Albumin 34799 11/26/2021 Basic Metabolic Panel (BMP) 43334 2021 Magnesium (B) 12563 11/26/2021 Phosphorus (B) 38996 11/26/2021 Protein (U) Random 15347 11/26/2021 Uric Acid (B) 29704 11/26/2021 Vitamin D Total (B) 88305 11/26/2021 Creatinine (U) 21751 11/26/2021 UA Reflex Micro, Reflex Cult 22299, 8101 5, 44417 11/26/2021 PTH Intact 52617 11/26/2021 Insurance Providers Payer Name Payer Address Payer Phone Subscriber Number Group Number Insured Name Patient Relationship to Insured Coverage Start Date Coverage End Date [place] [address] [place] [phone] [id number] Andrés Dumont Self - patient is the insured [employer] [address] [address] [place] [phone] [id number] Andrés Dumont Self - patient is the insured Medical (General) History Medical History History ICD Code type II diabetes mellitus hypertension (1997) hyperlipidemia peripheral neuropathy CKD secondary hyperparathyriodism Surgical History Surgery Date(Month/Year) cholecystectomy 08/2021 inguinal hernia repair right with hyproc adelia evacuation Hospitalization History Reason Date(Month/Year) see surgical
--- NOTE | 2025-01-14 12:16 | PC.NURSE ---
received from er via stretcher at 1140.report received.pt is alert and oriented x 4.denies pain at present.sr on monitor.on room air.oriented to room environment.instructed to notify staff for any sob,pain,if has to get up...or for any concerns at all.pt verb understanding of instructions
--- NOTE | 2025-01-14 18:05 | PC.NURSE ---
green catheter was inserted during pt's extended stay in ER..prior to getting to floor.
--- NOTE | 2025-01-14 18:06 | PM.PN ---
Subjective Subjective: 79-year-old male admitted from [facility] with progressive fluid retention 30 pounds in 15 days patient mitts to drinking plenty of water because his has been encouraging him to drink lots of water. He states he does feel cold denies constipation he has been sleeping a lot and weak. Patient has never been diagnosed with sleep apnea but his and son-in-law think he has it because he snores heavily and stops breathing. He has never been treated for the same. Vitals/I&O/Wt Last Vital Signs Temp 98.0 F 01/14/25 16:00 Pulse 74 01/14/25 16:00 Resp 13 01/14/25 16:00 BP 139/77 01/14/25 16:00 Pulse Ox 99 01/14/25 16:00 O2 Del Method Nasal Cannula 01/14/25 14:09 O2 Flow Rate 2 01/14/25 14:09 01/14/25 01/14/25 01/14/25 06:59 14:59 22:59 Intake Total 240 / 240 360 / 360 Output Total 800 / 800 750 / 750 Balance -560 / -560 360 / 360 -750 / -390 Weight last 48 hrs Weight 124.851 kg Weight 126.507 kg Physical Exam Narrative: General well-developed well-nourished obese male in no acute cardiopulmonary stress Oral Mallampati 3-4 Neck palpable thyroid no hard nodules but does feel little bit enlarged though not a goiter CV regular rate and rhythm Lungs diminished breath sounds in the bases trace crackles Abdomen positive bowel tones soft obese nontender Calves 2+ to 3 edema Arms 2+ edema Urinary Catheter Management: Huber: Cath Placed During This Visit: yes Reason for Continuing Indwelling Catheter: Accurate Measurement of Urinary Output in Critically Ill Patients Urinary Catheter Date of Insertion: 01/14/25 Urinary Catheter Time of Insertion: 01:00 Data 01/14/25 02:59 01/14/25 02:59 A&P Assessment and plan 1. CHF exacerbation: Start BiPAP diuresis. Place Huber. Furosemide 40 mg twice a day plus metolazone 5 mg daily replace potassium and magnesium. 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 Start physical therapy 3. Sleep apnea: Start BiPAP diuresis. Will place Huber PDMP PDMP Reviewed: Not Reviewed Attestations Medical Necessity Statement*: Patient will remain in the hospital greater than 2 midnights for BiPAP diuresis Coding Level of Care Code 92807 Diagnoses CHF exacerbation I50.9 Hypothyroidism due to amiodarone T46.2X1A; E03.2 Sleep apnea G47.30 Time Spent (min) 35
[2025-01-14] MEDS: insulin glargine 100 units/1 mL 35 UNIT SUBCUT (20:54)
[2025-01-15] VITALS (10 sets, daily range): BP systolic 140–180; BP diastolic 64–109; PULSE 71–95; RESP 13–34; TEMP 36.5–36.8; O2SAT 96–99
[2025-01-15 03:31] LABS: Hematocrit 30.6 % (37-53); Hemoglobin 9.20 g/dL (11.27-16.99); Mean Corpuscular HGB Conc 30.1 g/dL (30-55); Mean Corpuscular Hemoglobin 27.2 pg (27-33); Mean Corpuscular Volume 90.5 fl (82-101); Nucleated Red Blood Cells % 0 %; Platelet Count 380 10^3/cmm (157-399); Red Blood Count 3.38 10^6/uL (3.85-5.65); White Blood Count 7.98 10^3/uL (3.29-11.43)
[2025-01-15 03:48] LABS: Alanine Aminotransferase 12 U/L (0-41); Albumin Level 2.7 g/dL (3.5-5.2); Alkaline Phosphatase 139 U/L (40-130); Anion Gap 18.9 (5-19); Aspartate Amino Transferase 14 U/L (0-40); Blood Urea Nitrogen 24 mg/dL (8-23); Calcium 8.1 mg/dL (8.5-10.5); Carbon Dioxide 25 mmol/L (22-29); Chloride 99 mmol/L (98-107); Creatinine Clr Calc Pharmacy 53.4214; Globulin 2.9 g/dL (1.3-4.6); Glucose 228 mg/dL (65-115); Osmolality Calculated 299 mOsm/kg (285-295); Potassium 3.9 mmol/L (3.5-5.1); Sodium 139 mmol/L (136-145); Total Protein 5.6 g/dL (6.6-8.7)
[2025-01-15 03:54] LABS: Magnesium 1.6 mg/dL (1.7-2.3)
[2025-01-15] MEDS: polyethylene glycol 3350 Pkt 17 gm PO (04:57)
[2025-01-15] MEDS: FUROsemide 10 mg/mL SDV 4mL 40 MG IVP (05:44)
--- NOTE | 2025-01-15 12:24 | P.PN_ITS ---
Subjective 2 Subjective: 79-year-old male admitted from [facility] with progressive fluid retention 30 pounds in 15 days, patient at [facility] senior care facility. He has a Huber in place and has been on BiPAP diuresis overnight output 2800 yesterday and this morning patient found to be markedly hypothyroid started on thyroid replacement I counseled the patient regarding his obesity and sleep apnea. He is interested in losing weight and is willing to have a weight loss diet At patient's 's request I updated him regarding Karina Dumont's left hip pathology. I also spoke with her this morning regarding her pathology from previous admission. Vitals/I&O/Wt Last Vital Signs Temp 97.8 F 01/15/25 08:00 Pulse 84 01/15/25 08:45 Resp 20 H 01/15/25 08:45 BP 180/109 01/15/25 08:00 Pulse Ox 96 01/15/25 08:45 O2 Del Method Nasal Cannula 01/15/25 08:45 O2 Flow Rate 2 01/15/25 08:45 FiO2 28 01/15/25 02:00 01/14/25 01/15/25 01/15/25 22:59 06:59 14:59 Intake Total 360 / 720 Output Total 750 / 750 950 / 1700 1100 / 1100 Balance -390 / -30 -950 / -980 -1100 / -1100 Weight last 48 hrs Weight 127.5 kg Weight 124.851 kg Physical Exam 2 Narrative: General well-developed well-nourished obese male in no acute cardiopulmonary stress Oral Mallampati 3-4 Neck palpable thyroid no hard nodules but does feel little bit enlarged though not a goiter CV regular rate and rhythm Lungs diminished breath sounds in the bases trace crackles Abdomen positive bowel tones soft obese nontender Calves 2+ to 3 edema Arms 2+ edema right hand 3+ edema Urinary Catheter Management: Huber: Cath Placed During This Visit: yes Reason for Continuing Indwelling Catheter: Accurate Measurement of Urinary Output in Critically Ill Patients Urinary Catheter Date of Insertion: 01/14/25 Urinary Catheter Time of Insertion: 01:00 Data 01/15/25 02:42 01/15/25 02:42 A&P Assessment and plan 1. CHF exacerbation: Continue BiPAP diuresis with Huber for accurate I's and O's. Furosemide 60 mg IV every 8 hours plus metolazone 5 mg daily replace potassium and magnesium. 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 Start physical therapy 3. Sleep apnea: Start BiPAP diuresis. Will place Huber. Weight loss diet 4. Obesity (BMI 30-39.9): Start 2000 -calorie ADA weight loss diet. No caloric drinks concentrated sweets desserts PDMP PDMP Reviewed: Not Reviewed Attestations 2 Medical Necessity Statement*: Patient remains in the hospital for IV diuretics on BiPAP and correction of electrolytes. Anticipate discharge home on Thursday to [facility] with BiPAP Coding Level of Care Code 82068 Diagnoses CHF exacerbation I50.9 Hypothyroidism due to amiodarone T46.2X1A; E03.2 Sleep apnea G47.30 Obesity (BMI 30-39.9) E66.9 Time Spent (min) 40
[2025-01-15] MEDS: FUROsemide 10 mg/mL SDV 10mL 60 MG IVP ×2 (13:03→20:28)
--- NOTE | 2025-01-15 18:07 | USR_ITS ---
PROCEDURE INFORMATION: Exam: US Soft Tissue Head and Neck, Thyroid Exam date and time: 01/15/2025 8:17 AM Age: 79 years old Clinical indication: Condition or disease; Thyroid disorder; Other: Hypothyroidism; Additional info: Hypothyroidism and palpable thyroid, this can be done routine and is not urgent TECHNIQUE: Imaging protocol: Real-time ultrasound scan of the neck with image documentation. Exam focused on the thyroid. COMPARISON: CT head thrombolytic [id number] 12/27/2024 9:16 AM FINDINGS: Right thyroid lobe: No nodules. Right thyroid lobe measures 4.5 x 1.7 x 2.1 cm. Left thyroid lobe: No nodules. Left thyroid lobe measures 4.9 x 1.8 x 1.9 cm. Isthmus: No nodules. Isthmus measures 3 mm. US/US thyroid [id number] IMPRESSION: No suspicious thyroid nodule.
[2025-01-15] MEDS: insulin glargine 100 units/1 mL 35 UNIT SUBCUT (20:28)
[2025-01-16] VITALS (9 sets, daily range): BP systolic 117–139; BP diastolic 52–67; PULSE 65–79; RESP 11–20; TEMP 36.4–36.9; O2SAT 95–98
--- NOTE | 2025-01-16 01:41 | PC.NURSE ---
Provider updated that patient has a headache 08/30 from when he came from the ED to [facility]. Provider ordered tylenol 650mg po.
[2025-01-16 02:55] LABS: Magnesium 1.7 mg/dL (1.7-2.3)
[2025-01-16] MEDS: HYDROcodone-acetaminophen 5-325 mg Tablet 1 TAB PO (02:55)
[2025-01-16 03:31] LABS: Alanine Aminotransferase 11 U/L (0-41); Albumin Level 2.7 g/dL (3.5-5.2); Alkaline Phosphatase 129 U/L (40-130); Anion Gap 14.6 (5-19); Aspartate Amino Transferase 13 U/L (0-40); Blood Urea Nitrogen 19 mg/dL (8-23); Calcium 8.3 mg/dL (8.5-10.5); Carbon Dioxide 30 mmol/L (22-29); Chloride 94 mmol/L (98-107); Creatinine Clr Calc Pharmacy 61.7048; Globulin 3.3 g/dL (1.3-4.6); Glucose 145 mg/dL (65-115); Osmolality Calculated 285 mOsm/kg (285-295); Potassium 3.6 mmol/L (3.5-5.1); Sodium 135 mmol/L (136-145); Total Protein 6.0 g/dL (6.6-8.7)
[2025-01-16] MEDS: FUROsemide 10 mg/mL SDV 10mL 60 MG IVP ×3 (05:26→20:29)
[2025-01-16] MEDS: polyethylene glycol 3350 Pkt 17 gm PO (05:27)
--- NOTE | 2025-01-16 09:15 | PC.CHAP ---
Pastoral Care Encounter/Spiritual Assessment Type of Contact [] Declined car changer visit [] Patient/Family/Request visit [] Outpatient visit [] Follow-up visit [] Physician referral [] Code/Alert [x] Routine visit [] Staff referral [] Actively dying [] Patient sleeping [] Family support [] [] Out of room [] Palliative care [] [] Receiving care in room [] Pre-surgical visit [] Trauma [] Long length of stay [] ICU visit [] Other: Relational/Emotional Strength [] Patient feels connected with others/family/visitors/staff [] Distress [] Loneliness/isolation [] Abandonment Spirituality of Patient [x] Person of Marta [] Attends Scientologist of their Marta [x] Believes in Prayer [] Reads Bible or Anabaptist materials [] There are Spiritual issues to be addressed Park Guard Interventions [x] Prayer [x] Active listening [] Non-anxious presence [] Spiritual/emotional support [] Crisis/trauma care [] Spiritual counseling [] Bereavement support [] Provided bereavement packet [x] Provided Bible/devotional materials [] Provided toy/stuffed animal, coloring book to patient or family member [] Provided Communion [] Anointing/[place] [] Salvation [x] Completed spiritual assessment [] Other: Impact on Illness or Injury [] Angry [] Fearful [] Anxious [] Often cries [] Exhaustion [] Unable to work [] Unable to attend congregational [] Unable to walk/stand [] Unable to read [] Unable to drive [] Unable to eat/drink [] Unable to sleep [] Unable to be with family [] Patient intubated [] Other: Summary Time spent with patient 10 min
--- NOTE | 2025-01-16 10:41 | PM.PN ---
Subjective Subjective: 79-year-old male admitted from [facility] with progressive fluid retention 30 pounds in 15 days prior to admission, patient at [facility] facility. He has a Huber in place and has been on BiPAP diuresis overnight output 4100 yesterday. He is on a 1 L fluid restriction and a weight loss diet Patient's weight down to 120.4 kg. He states he is breathing better and is willing to wear BiPAP at the retirement Vitals/I&O/Wt Last Vital Signs Temp 97.6 F 01/16/25 07:26 Pulse 69 01/16/25 08:40 Resp 20 H 01/16/25 08:40 BP 117/52 01/16/25 07:26 Pulse Ox 95 01/16/25 08:40 O2 Del Method Room Air 01/16/25 08:40 O2 Flow Rate 2 01/16/25 02:30 FiO2 28 01/15/25 02:00 01/15/25 01/16/25 01/16/25 22:59 06:59 14:59 Intake Total 360 / 600 240 / 840 360 / 360 Output Total 2450 / 3550 550 / 4100 Balance -2090 / -2950 -310 / -3260 360 / 360 Weight last 48 hrs Weight 120.4 kg Weight 127.5 kg Weight 124.851 kg Physical Exam Narrative: General well-developed well-nourished obese male in no acute cardiopulmonary stress Oral Mallampati 3-4 Neck palpable thyroid no hard nodules but does feel little bit enlarged though not a goiter CV regular rate and rhythm Lungs diminished breath sounds in the bases trace crackles Abdomen positive bowel tones soft obese nontender Calves 2+ to 3 edema Arms 2+ edema right hand 3+ edema Urinary Catheter Management: Huber: Cath Placed During This Visit: yes Reason for Continuing Indwelling Catheter: Accurate Measurement of Urinary Output in Critically Ill Patients Urinary Catheter Date of Insertion: 01/14/25 Urinary Catheter Time of Insertion: 01:00 Data 01/15/25 02:42 01/16/25 02:08 A&P Assessment and plan 1. CHF exacerbation: Continue BiPAP diuresis with Huber for accurate I's and O's. Furosemide 60 mg IV every 8 hours plus metolazone 5 mg daily replace potassium and magnesium. Arm elevations ordered for today. Pneumatic cuffs and GEORGE hose ordered on the have not been being performed. 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 Start physical therapy 3. Sleep apnea: Continue BiPAP diuresis. And Huber. Weight loss diet. Anticipate discharge to [facility] tomorrow on BiPAP 4. Obesity (BMI 30-39.9): Start 1800-calorie ADA weight loss diet. No caloric drinks concentrated sweets desserts PDMP PDMP Reviewed: Not Reviewed Attestations Medical Necessity Statement*: Patient rolanda in the hospital for 1 more day of BiPAP diuresis which will be continued on oral medication at [facility] upon discharge likely tomorrow Coding Level of Care Code 34796 Diagnoses CHF exacerbation I50.9 Hypothyroidism due to amiodarone T46.2X1A; E03.2 Sleep apnea G47.30 Obesity (BMI 30-39.9) E66.9 Time Spent (min) 35
--- NOTE | 2025-01-16 13:26 | PC.RESP ---
This therapist asked about Bipap settings by discharge planning. Notified store planner that the settings were for in hospital, not set by a sleep lab.
--- NOTE | 2025-01-16 15:05 | PC.SOCIAL ---
*IMM* Patient received IMM, Initial and dated in chart./
[2025-01-16] MEDS: DAPAGLIFLOZIN 5 MG TABLET PO (17:45)
[2025-01-16] MEDS: insulin glargine 100 units/1 mL 35 UNIT SUBCUT (20:30)
[2025-01-17] VITALS (7 sets, daily range): BP systolic 129–160; BP diastolic 61–78; PULSE 66–78; RESP 16–22; TEMP 36.3–37; O2SAT 92–100; BMI 34.1
[2025-01-17 04:35] LABS: Anion Gap 14.6 (5-19); Blood Urea Nitrogen 38 mg/dL (8-23); Calcium 8.4 mg/dL (8.5-10.5); Carbon Dioxide 32 mmol/L (22-29); Chloride 95 mmol/L (98-107); Creatinine Clr Calc Pharmacy 46.6340; Glucose 134 mg/dL (65-115); Osmolality Calculated 297 mOsm/kg (285-295); Potassium 3.6 mmol/L (3.5-5.1); Sodium 138 mmol/L (136-145)
[2025-01-17 04:39] LABS: Magnesium 1.7 mg/dL (1.7-2.3)
[2025-01-17] MEDS: FUROsemide 10 mg/mL SDV 10mL 60 MG IVP ×2 (04:56→13:09)
[2025-01-17] MEDS: polyethylene glycol 3350 Pkt 17 gm PO (04:58)
[2025-01-17] MEDS: DAPAGLIFLOZIN 5 MG TABLET PO (04:58)
--- NOTE | 2025-01-17 14:12 | PM.DCS ---
Discharge Providers Date of Admission: 01/14/25 18:00 Date of Discharge: January 17, 2025 Attending Provider at Admission: Wli Lopez Attending Provider at Discharge: Devonte Jose MD Primary Care Provider: Humberto Griggs DO Diagnoses at Discharge Discharge Diagnosis 1. CHF exacerbation: Details from hospital stay: Continue with BiPAP diuresis. Patient has been started on thyroid replacement which should help markedly with diuresis as well. Huber to remain in place for 5 days. 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 Sleep apnea: Details from hospital stay: Start BiPAP at night and whenever sleeping current settings. Humidify the air for comfort 4. Obesity (BMI 30-39.9): Details from hospital stay: Started weight loss diet 1800 rigoberto daily start therapy Reason for Visit Reason for Visit: SOB - weight gain Brief History: Andrés Dumont is a 79 year old male with a history of atrial fibrillation, cerebrovascular accident, chronic kidney disease, T2DM insulin dependent, hypertension, and sleep apnea who is brought to the ED from [facility] for worsening shortness of breath. He has gained 34lbs weight in the last 18 days. He has O2 that he wears at night as needed but is not requiring it at this moment. He feels better laying down reclined at about 45 degrees with a pillow behind him. His only other complaint is about a sacral sore that [facility]. Hospital Course Hospital Course Patient was found to be profoundly hypothyroid with TSH of 30. He also had Mallampati 4 oropharynx and had not been treated for sleep apnea. He was started on BiPAP diuresis and did not tolerate the mask well. That mask has been changed which she is now tolerating. Patient is diuresed 7 7 L and that does correspond with his weight loss of 7 kg. His discharge weight on 12/29/2024 was 113 kg. He was admitted at 127.5 kg and his today was weight 120 kg. Patient is agreeable to wearing BiPAP at the nursing facility and we have set them his settings. Diuretics have been adjusted. Huber was placed for accurate I's and O's and will remain in place for 5 days Physical Exam Narrative: General well-developed well-nourished obese male in no acute cardiopulmonary stress patient seen this morning not wearing BiPAP but currently he is tolerating BiPAP well on a fullface mask CV regular rate and rhythm Lungs crackles heard in the bases this morning Abdomen positive bowel tones soft Calves 1+ to bilateral pretibial edema Arms 2+ right forearm edema 1+ left Urinary Catheter Management: Huber: Cath Placed During This Visit: yes Reason for Continuing Indwelling Catheter: Accurate Measurement of Urinary Output in Critically Ill Patients Urinary Catheter Date of Insertion: 01/14/25 Urinary Catheter Time of Insertion: 01:00 Discharge Data Studies Completed and Pending Completed Studies During Hospitalization Category Date Time Status XR chest 1V portable [id number] Stat Exams 01/13/25 10:17 Completed CV. echo limited [id number] Routine Ultrasound 01/13/25 15:48 Completed US thyroid [id number] Routine Ultrasound 01/15/25 18:07 Completed Radiology Impressions Chest X-Ray 01/13/25 10:17 Impression: 1. Bilateral patchy opacities which may represent acute pneumonia and/or atelectasis. 2. Pulmonary vascular congestion is less likely. 3. Atherosclerosis and cardiomegaly. Thyroid Ultrasound 01/15/25 18:07 IMPRESSION: No suspicious thyroid nodule. Laboratory Results WBC 7.98 10^3/uL (3.29-11.43) 01/15/25 02:42 RBC 3.38 10^6/uL (3.85-5.65) L 01/15/25 02:42 Hgb 9.20 g/dL (11.27-16.99) L 01/15/25 02:42 Hct 30.6 % (37-53) L 01/15/25 02:42 MCV 90.5 fl (82-101) 01/15/25 02:42 MCH 27.2 pg (27-33) 01/15/25 02:42 MCHC 30.1 g/dL (30-55) D 01/15/25 02:42 RDW 17.2 % (12.1-15.1) H 01/15/25 02:42 Plt Count 380 10^3/cmm (157-399) D 01/15/25 02:42 MPV 9.0 fL (7.4-10.4) 01/15/25 02:42 Neut % (Auto) 67.4 % 01/15/25 02:42 Lymph % (Auto) 12.3 % 01/15/25 02:42 [place] % (Auto) 14.8 % 01/15/25 02:42 Eos % (Auto) 3.6 % 01/15/25 02:42 Baso % (Auto) 0.4 % 01/15/25 02:42 Neut # (Auto) 5.38 10^3/uL (1.8-7.7) 01/15/25 02:42 Lymph # (Auto) 1.0 10^3/uL (0.8-4.8) 01/15/25 02:42 [place] # (Auto) 1.2 10^3/uL (0.2-0.9) H 01/15/25 02:42 Eos # (Auto) 0.3 10^3/uL (0.0-0.8) 01/15/25 02:42 Baso # (Auto) 0.0 10^3/uL (0.0-0.1) 01/15/25 02:42 Nucleated RBC % (auto) 0 % 01/15/25 02:42 Nucleated RBCs # 0.0 /100WBC 01/15/25 02:42 PT 21.00 SECONDS (12.1-14.9) H 01/13/25 10:24 INR 1.69 (0.8-1.2) H 01/13/25 10:24 Sodium 138 mmol/L (136-145) 01/17/25 03:49 Potassium 3.6 mmol/L (3.5-5.1) 01/17/25 03:49 Chloride 95 mmol/L (98-107) L 01/17/25 03:49 Carbon Dioxide 32 mmol/L (22-29) H 01/17/25 03:49 Anion Gap 14.6 (5-19) 01/17/25 03:49 BUN 38 mg/dL (8-23) H 01/17/25 03:49 Creatinine 1.8 mg/dL (0.7-1.2) H 01/17/25 03:49 GFR Calculation Not Reportable 01/17/25 03:49 Glucose 134 mg/dL (65-115) H 01/17/25 03:49 POC Glucose 233 mg/dL (70-110) H 01/16/25 20:16 Calculated Osmolality 297 mOsm/kg (285-295) H 01/17/25 03:49 Calcium 8.4 mg/dL (8.5-10.5) L 01/17/25 03:49 Phosphorus 3.9 mg/dL (2.5-4.5) 01/17/25 03:49 Magnesium 1.7 mg/dL (1.7-2.3) 01/17/25 03:49 Total Bilirubin 0.4 mg/dL (0.15-1.2) 01/16/25 02:08 AST 13 U/L (0-40) 01/16/25 02:08 ALT 11 U/L (0-41) 01/16/25 02:08 Alkaline Phosphatase 129 U/L (40-130) 01/16/25 02:08 Troponin T 5th Gen ng/L 50 ng/L (0-15) H 01/14/25 02:59 Troponin T Baseline 47 ng/L (0-15) H 01/13/25 15:52 Troponin T 120 Minute 52.43 ng/L (0-15) H 01/14/25 04:50 Delta Troponin T 2.43 ABS# (0-10) 01/14/25 04:50 Troponin T Hi Sens 6Hr 56.55 ng/L (0-15) H 01/14/25 08:31 Troponin T Hi Sens 6Hr Delta 6.55 ng/L (0-12) 01/14/25 08:31 NT-Pro-B Natriuret Pep 4350 pg/mL (0-450) H 01/13/25 10:24 Total Protein 6.0 g/dL (6.6-8.7) L 01/16/25 02:08 Albumin 2.7 g/dL (3.5-5.2) L 01/16/25 02:08 Globulin 3.3 g/dL (1.3-4.6) 01/16/25 02:08 TSH 27.46 uIU/mL (0.27-4.20) H 01/14/25 02:59 TSH Cancelled 01/14/25 02:59 Influenza A (PCR) Negative (Negative) 01/13/25 14:31 Influenza Type B (PCR) Negative (Negative) 01/13/25 14:31 RSV (PCR) Negative (Negative) 01/13/25 14:31 SARS-CoV-2 (PCR) Negative (Negative) 01/13/25 14:31 Vitals Last Vital Signs Temp 98.2 F 01/17/25 11:20 Pulse 66 01/17/25 13:14 Resp 16 01/17/25 11:20 BP 129/61 01/17/25 11:20 Pulse Ox 99 01/17/25 13:14 O2 Del Method Nasal Cannula 01/17/25 07:35 O2 Flow Rate 2 01/16/25 20:00 FiO2 28 01/17/25 13:14 Discharge Plan Discharge Patient Disposition: Xfer SNF Condition: Stable Prescriptions: New clopidogrel 75 mg Tablet 75 mg PO DAILY Qty: 30 0RF levothyroxine [Levoxyl] 100 mcg Tablet 100 mcg PO QAM Qty: 30 0RF potassium chloride [Klor-Con M20] 20 mEq Tablet,Er Particles/Crystals 40 meq PO DAILY Qty: 30 0RF dapagliflozin propanediol 5 mg Tablet 5 mg PO DAILY Qty: 30 0RF ipratropium-albuterol 0.5 mg-3 mg(2.5 mg base)/3 mL Solution For Nebulization 3 ml inhalation Q6H PRN (Reason: Shortness Of Breath) Qty: 90 0RF magnesium oxide 400 mg (241.3 mg magnesium) Tablet 400 mg PO BID Qty: 60 0RF metoprolol tartrate 25 mg Tablet 25 mg PO BID@0900,2100 Qty: 60 0RF bumetanide 2 mg tablet 2 mg PO DAILY Qty: 30 0RF metolazone 2.5 mg tablet 2.5 mg PO DAILY Qty: 30 0RF Continued pantoprazole 40 mg tablet,delayed release (DR/EC) 40 mg PO DAILY amiodarone 200 mg tablet 200 mg PO DAILY acetaminophen 325 mg capsule 650 mg PO QID PRN (Reason: Pain) sertraline 100 mg tablet 100 mg PO BEDTIME multivitamin [Multiple Vitamins] Tablet 1 tab PO DAILY albuterol sulfate 90 mcg/actuation HFA aerosol inhaler 1 puff INHALATION .Q4H PRN (Reason: Shortness Of Breath) budesonide 32 mcg/actuation [place],Non-Aerosol 1 spray INTRANASAL BID Rx Instructions: administer into each nostril insulin lispro [Humalog KwikPen Insulin] 100 unit/mL insulin pen 12 unit SUBCUT TID bisacodyl 10 mg Suppository 10 mg VT DAILY PRN (Reason: constipation ) Fleet Enema 19-7 gram/118 mL Enema 118 ml VT DAILY PRN (Reason: Constipation) Xarelto 20 mg tablet 20 mg PO QPM tamsulosin [Flomax] 0.4 mg capsule 0.4 mg PO BEDTIME rosuvastatin 40 mg tablet 40 mg PO BEDTIME cetirizine [Allergy Relief (cetirizine)] 5 mg tablet 5 mg PO QPM PRN (Reason: Allergy Symptoms) Qty: 1 0RF hydrocodone-acetaminophen 5-325 mg tablet 1 tab PO Q6H PRN (Reason: Pain, Moderate) Qty: 1 0RF Rx Instructions: Dose change to PRN only melatonin 3 mg Tablet 3 mg PO BEDTIME PRN (Reason: Sleep) Qty: 1 0RF lidocaine HCl 2 % Jelly See Rx Instructions .ROUTE .COMPLEX PRN (Reason: Pain) Rx Instructions: Apply to penis topically as needed for pain. polyethylene glycol 3350 [Miralax] 17 gram/dose Powder 17 g PO DAILY Changed ursodiol 300 mg capsule 300 mg PO 2XD Qty: 60 0RF insulin glargine [Lantus Solostar U-100 Insulin] 100 unit/mL (3 mL) insulin pen 40 unit SUBCUT BEDTIME Qty: 0.01 0RF Discontinued furosemide [Lasix] 20 mg tablet 20 mg PO DAILY PRN (Reason: Edema) potassium chloride 10 mEq tablet extended release 10 meq PO BID albuterol sulfate 2.5 mg /3 mL (0.083 %) solution for nebulization 2.5 mg inhalation Q4H PRN (Reason: sob) metolazone 5 mg tablet See Rx Instructions .ROUTE .COMPLEX PRN (Reason: Edema) Qty: 1 0RF Rx Instructions: Take 1 tablet by mouth as needed for increased weight . May give prn if weight gain more than 3lbs in weight in 24 hour or 5lbs in one week. 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 for DC: Hospitalist Other Ambulatory Orders: DME: BIPAP (Order) Location: None Selected Ordered By: Devonte Jose Basic Metabolic Panel (Routine) Timeframe: 1 Week Facility: [facility] - Location: Lab - Main Lab Ordered By: Devonte Jose Magnesium (Routine) Timeframe: 1 Week Facility: [facility] - Location: Lab - Main Lab Ordered By: Devonte Jose Thyroid Stimulating Hormone (Routine) Timeframe: 6 Weeks Facility: [facility] - Location: Lab - Main Lab Ordered By: Devonte Jose Referrals: Humberto Griggs DO [Primary Care Provider, [facility]] - 01/23/25 10:40 am Discharge Diet: Diabetic Patient Instructions: Hypothyroidism (DC), Obesity (GEN), CHF Stoplight, Opioid Safety, Patient Portal & Ann Instructions, Obstructive Sleep Apnea Activity Restrictions/Additional Instructions: 1800-calorie weight loss diet with no added sweets, sugared sodas, drinks with calories milk desserts Wear BiPAP nightly and whenever sleeping Take thyroid medication at current dose and recheck TSH in 6 weeks. Anticipate that you will need to increase your thyroid dose at that time Mini panel for diuresis in 1 week and diuretic doses may need to be adjusted Weight yourself daily on a standing scale. Anticipate that you will lose water 10 additional pounds of water. Your diuretics will need adjusting every week Start physical therapy and increase activity to get back on your feet Huber to remain in place until January 22, 2025. At that time remove Huber and check postvoid residuals and notify physician if greater than 150 cc Discharge Attestations Time Spent in Discharge Care*: greater than 30 min Time Spent in Smoking Cessation: Patient is not a smoker Quality Metrics Clinical Quality Measures [ No reported AMI, CVA or VTE this stay] Coding Level of Care Code Acute Code for Chg Fwd Diagnoses CHF exacerbation I50.9 Hypothyroidism due to amiodarone T46.2X1A; E03.2 Sleep apnea G47.30 Obesity (BMI 30-39.9) E66.9 Time Spent (min) 50
== END 2025-01-17 17:30 | disposition skilled nursing facility (03) | DRG 291 ==
LOC: ER 11:10 → ER IP 12:29 → CSU 01-14 10:41
PROVIDERS: Admitting Provider Internal Medicine; Emergency Provider Emergency Medicine; PCP Electrodiagnostic Medicine; Visit Provider Internal Medicine
DX: I13.0 Hypertensive heart and chronic kidney disease with heart failure and stage 1 through stage 4 chronic kidney disease, or unspecified chronic kidney disease (principal); I50.33 Acute on chronic diastolic (congestive) heart failure; N18.9 Chronic kidney disease, unspecified; E11.22 Type 2 diabetes mellitus with diabetic chronic kidney disease; Z79.4 Long term (current) use of insulin; Z90.49 Acquired absence of other specified parts of digestive tract; Z87.891 Personal history of nicotine dependence; I48.91 Unspecified atrial fibrillation; G47.30 Sleep apnea, unspecified; T46.2X5A Adverse effect of other antidysrhythmic drugs, initial encounter; E03.2 Hypothyroidism due to medicaments and other exogenous substances; E66.9 Obesity, unspecified; Z68.34 Body mass index [BMI] 34.0-34.9, adult; E11.51 Type 2 diabetes mellitus with diabetic peripheral angiopathy without gangrene; N40.0 Benign prostatic hyperplasia without lower urinary tract symptoms; K21.9 Gastro-esophageal reflux disease without esophagitis; Z86.73 Personal history of transient ischemic attack (TIA), and cerebral infarction without residual deficits; Z79.01 Long term (current) use of anticoagulants
CPT/HCPCS: 36415; 36416; 51702; 71045; 76536; 80048; 80053; 82962; 83735; 83880; 84100; 84443; 84484; 85025; 85610; 87637; 92522; 92610; 93005; 93308; 93926; 94640; 94660; 96372; 96374; 96376; 97110; 97161; 97530; 99291; G0378; J1815; J1938; J9999

== ENCOUNTER → 2025-01-23 13:13 | Outpatient (BNVA) | payer MEDICARE, OTHER, SELFPAY | PROVIDERS: PCP Electrodiagnostic Medicine; Visit Provider Thoracic Surgery (Cardiothoracic Vascular Surgery) | DX: E11.52 Type 2 diabetes mellitus with diabetic peripheral angiopathy with gangrene (principal); E11.621 Type 2 diabetes mellitus with foot ulcer; L97.512 Non-pressure chronic ulcer of other part of right foot with fat layer exposed | CPT/HCPCS: 97597; A6212 ==

== ENCOUNTER → 2025-01-30 10:42 | Outpatient (BNVA) | payer MEDICARE, OTHER, SELFPAY | PROVIDERS: PCP Electrodiagnostic Medicine; Visit Provider Thoracic Surgery (Cardiothoracic Vascular Surgery) | DX: E11.52 Type 2 diabetes mellitus with diabetic peripheral angiopathy with gangrene (principal); E11.621 Type 2 diabetes mellitus with foot ulcer; L97.515 Non-pressure chronic ulcer of other part of right foot with muscle involvement without evidence of necrosis | CPT/HCPCS: 11042 ==

== ENCOUNTER → 2025-02-06 11:03 | Outpatient (BNVA) | payer MEDICARE, OTHER, SELFPAY | PROVIDERS: PCP Electrodiagnostic Medicine; Visit Provider Thoracic Surgery (Cardiothoracic Vascular Surgery) | DX: E11.52 Type 2 diabetes mellitus with diabetic peripheral angiopathy with gangrene (principal); E11.621 Type 2 diabetes mellitus with foot ulcer; L97.513 Non-pressure chronic ulcer of other part of right foot with necrosis of muscle | CPT/HCPCS: 11043 ==

== ENCOUNTER 2025-02-10 13:46 | Inpatient (IN) | payer MEDICARE, OTHER, SELFPAY ==
[2025-02-10] VITALS (9 sets, daily range): BP systolic 134–166; BP diastolic 59–88; PULSE 72–81; RESP 17–20; TEMP 36.5–36.8; O2SAT 92–100; BMI 34.2
--- OUTSIDE RECORDS SUMMARY | 2025-02-10 13:53 | XMS_ITS | Continuity of Care Document ---
Author Organization [facility], LJose AntonioLLaura, [facility] ([facility]) Address [address] [place] [address] Care Team Providers Care Structural Drafter Name Role Phone CHA JONES Primary Care [...] Modified By Organization Details Last Modified Time 12/01/2024 [id number] Sugars too high, increase insulin. Edema improved, weight down 5lbs in the last week, on lasix and metolazone. Will get bmp on Thursday. [email or web address] Not available 12/01/2024 12:12:16 Reason for Referral None Reported. Problems Name Problem SNOMED Code Status Onset Date Resolution Date Notes Provider Name and Address Organization Details Recorded Time Foot ulcer due to type 2 diabetes mellitus 73262464020 00 Active 2022 DIABETIC TOE ULCER; Impressi on: Right toe, resolved , continue s f/u with Dr. Goodman Delmy jeter [facility] LJose AntonioLLaura 5 07:56:23 Type 2 diabetes mellitus 28776137 Active 2022 ELVIA [facility]eter [facility] 3 11:57:16 Hypercho lesterol emia 84515013 Active 2022 Delmy jeter [facility], L.L.CJose Antonio 5 07:56:23 Ulcer of toe 971363231 Active 2022 Cha Jones, DO [address] [place] [address], [phone] , [facility] 3 09:38:37 [facility]ia l hyperten sai 80557840 Active 2022 Delmy jeter, [facility] 5 07:56:23 Atrial fibrilla tion 48008607 Active 2023 Delmy jeter [facility], Mandy.L.C. 5 07:55:39 Age related macular degenera tion 970212663 Active 2023 Delmy jeter [facility] 5 07:55:35 Congesti ve heart failure 30920837 Active 2023 Delmy jeter [facility] 5 07:55:51 Chronic kidney disease stage 3B 389127748 Active 2023 Delmy jeter [facility] 5 07:55:45 Edema of lower extremit y 994746460 Active 2023 Delmy jeter [facility] 5 07:56:23 Acute bronchit is 59614908 Completed 202306/21/2024 Delmy jeter [facility] 5 07:55:32 Hypokale jerica 62519896 Active 2023 Delmy jeter [facility] 5 07:56:23 Pain of bilatera l hip joints 51304327745 000205 Active 2023 Delmy jeter, [facility] 5 07:55:42 Gastroes ophageal reflux disease 003524116 Active 2023 Delmy jeter, [facility] 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 5 07:56:23 Abnormal gait due to muscle weakness 996002769 Active 2024 Delmyisabell Mariscal [facility] 5 07:56:23 Right carotid artery stenosis 30183145363 9100 Active 2024 Delmyisabell Mariscal [facility] 5 11:28:49 Chronic bronchit is 68383279 Active 2024 Delmy Mariscal [facility] 5 11:28:47 Primary biliary cholangi tis 10628606 Active 2024 Cha Jones, [address], [address] , [facility] 5 11:27:33 Difficul ty sleeping 314131367 [facility] 17:35:55 Closed fracture of hip 093681441 Active 2024 [facility]IC [facility] 16:41:22 Bilatera l lower limb edema 648253305 Active 20[facility] 12:49:21 Pneumoni a 533867346 [facility] 12:47:01 Post-dis charge follow-u p 401384714 Active 2024 ERIC JARAMILLO [facility] 14:47:51 Acute exacerba tion of chronic congesti ve heart failure 272557751 Active 2024 ERIC JARAMILLO [facility] 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 14:47:53 Obstruct victorina sleep apnea syndrome 87860475 Active 2024 ERIC JARAMILLO [facility] 14:47:56 Chronic atrial fibrilla tion 759712575 Active 2024 ERIC JARAMILLO [facility] 14:47:57 Chronic kidney disease stage 3A 261876551 Active 2024 ERIC JARAMILLO [facility] 14:47:59 Notes:Some problems listed i n Documents: #[id number], #[id number], #[id number], #[id number] could not be added to this patient's chart. Please review these documents and add these problems to the patient's chart manually as needed. Problem Notes None recorded. Procedures Surgical History Date Name Laterality Status Provider Name and Address Organization Details Recorded Time tonsillectomy completed ALEXIA BURCIAGA [facility], LJose AntonioLLaura 05/25/2024 11:58:08 Cholecystectomy completed ALEXIA PATRICA [facility], LJose AntonioLLaura 05/25/2024 11:58:14 Imaging Results None recorded. Procedure Notes None recorded. Medical Equipment None Reported. Allergies Allergen ID Allergen Name Allergen Category Reaction Reaction Severity Criticality Documentation Date Start Date Code Code System Note Provider Name and Address Organization Details Recorded Time 59 lovastati n medicatio n Not available Not available Not available 06/06/2022 6472 RxNorm Sondra Quick steffany [facility], CandelariaLLaura 3 12:00:13 60870 Product containin g 3-hydroxy -3-methyl glutaryl- coenzyme A reductase inhibitor (product) medicatio n itching Not available low 02/03/20252022 57158 009 SNOMED Not Available [place] - External Data Service - prod 18:04:07 Medications Name Sig Start Date Stop Date Status Note LastModified by Organization Details LastModified Time Prescript ion - New 09/22 completed Not Available Not Available Not Available Prescript ion - Prior Authoriza tion Request active [place] 5/325 Not Available Not Available Not Available [...] oral route as needed for 30 days. active Not Available Not Available No t Available glipizide ER 10 mg tablet, extended release [...] Not Available loratadin e daily 12/24 completed 25348; Recorded 10/16/19 22 2:59PM by Elvia Singh (Authori michelle through Cha Jones DO), Office Visit; Not Available Not Available Not Available Lasix every morning 12/24 completed DM/sd; 26543; Recorded 12/12/19 22 1:18PM by Elvia Singh (Authorpasquale martinez through Cha Jones DO), Refill Request; Refill Quantity : 30; Tablet; Not Available Not Available Not Available fluconazo le daily 12/24 completed 0; Recorded 06/04/19 23 11:43AM by Pina Smart, Office Visit; Not Available Not Available Not Available carvedilo l two times daily 12/24 completed 82678; Recorded 02/26/20 22 11:07AM by Pina Smart (Vince martinez through Cha Jones DO), Office Visit; Refill Quantity : 60; Tablet; Not Available Not Available Not Available hydralazi ne three times daily 12/24 completed DM/sd; 28239; Recorded 01/22/20 22 10:41AM by Rafiq Medellin (Authori zed through [employer] , DO), Office Visit; Refill Quantity : 0; Not Available Not Available Not Available lisinopri l daily 12/24 completed 55401; Recorded 11/13/19 9:23AM by Rafiq Medellin (Authori zed through [employer] , DO), Office Visit; Refill Quantity : 90; Tablet; Not Available Not Available Not Available sildenafi l daily 12/24 completed 87074; Recorded 10/16/19 2:59PM by Elvia Singh (Authori zed through [employer] , DO), Office Visit; Not Available Not Available Not Available glipizide daily 12/24 completed 07104; Recorded 11/13/19 9:23AM by Rafiq Medellin (Authori zed through [employer] , DO), Office Visit; Not Available Not Available Not Available multivita min active Not Available Not Available Not Available Potassium Chloride ER two times daily 12/24 completed DM/sd; 46965; Recorded 03/27/19 1:52PM by Elvia Singh (Authori zed through [employer] , DO), Annotati on/Adden dum; Refill Quantity [...] Available Eliquis two times daily 12/24 completed 35671; Recorded 11/13/19 9:23AM by Rafiq Medellin (Authori zed through Cha Jones , DO), Office Visit; Refill Quantity : 60; Tablet; Not Available Not Available Not Available potassium chloride ER 20 mEq tablet,ex tended release Take 1 tablet every day by oral route. 06/21 completed Not Available Not Available Not Available FreeStyle Kalani 2 Sensor as directed 05/25 completed Not Available Not Available Not Available FreeStyle Kalani 2 [place] as directed 05/25 completed Not Available Not [...] rate Respiratory rate Body temperature Oxygen saturation Systolic And Diastolic Provider Name and Address Organization Details Last Updated DateTime 5 187.96 cm 68 /min 18 /min 97.8 [degF] 98 % 142/75 mm[Hg] ERIC JARAMILLO [facility] 5 12:09:25 Social History Question Answer Notes LastModified by Storage Made Easy ion Details LastModified Time Tobacco Smoking Status Former Smoker Edvin Jordan steffany [facility] 10/05/2023 09:45:48 What Is Your Level Of Caffeine Consumption? Moderate Coffee Information not available 05/25/2024 How Many Years Have You Smoked Tobacco? 20 [email or web address] Information not available 10/05/2023 Sex: Unknown Functional Status Question Answer Note LastModified by Organizat ion Details LastModified Time Do you use any illicit or recreational drugs? No [email or web address] Information not available 08/14/2022 Do you or have you ever used any other forms of tobacco or nicotine? No Information not available 08/14/2022 What is your level of alcohol consumption? None [email or web address] Information not available 08/14/2022 Are you currently employed? No [email or web address] Information not available 05/25/2024 Are you able to walk independently without assistance or assistive devices? YESASSIST walker [email or web address] Information not available 05/25/2024 Are you able to care for yourself independently? Yes Information not available 05/25/2024 Mental Status None recorded. Family History Relationship Description Onset Age of this Age Resolved Age Notes LastModified by Organization Details LastModified Time Father Diabetes mellitus [email or web address] Not available 05/25 11:55:50 Father Motor vehicle accident age 50 Not available 05/25/2024 11:56:43 Mother Malignant neoplasm of colon age 73 [email or web address] Not available 05/25/2024 11:56:22 Paternal Grandmother Natural age 102 [email or web address] Not available 05/25/2024 11:57:08 Medical History Condition Response Coronary Artery Disease N Other Y Gout N Kidney Stones N Blood Diseases N Hyperthyroidism N Breast Cancer N Blood Transfusion N Hypothyroidism N Lung Disease N COPD N Depression N Defects or Inherited Disease N Developmental or Behavioral Disorders N Breast Problem N Difficulty Swallowing N Anesthesia Complications N Meniere's disease N Anxiety Disorder N Muscle, Joint, or Bone Problems N Vision or Eye Problems N Arthritis N Infertility N Polyps N Cancer N Stroke N Varicosities N Endometriosis N Bladder or Kidney Problems [...] Vaccine Type Date Status Note Provider Nam jc and Address Organization Details Recorded Time zoster recombinant completed Cha Jones DO [address] [place] [address], [phone], [facility] 04/22/2023 11:34:44 zoster recombinant 2 completed Cha Jones, [address] [place] [address], [phone], [facility] 04/22/2023 11:34:44 Influenza, high-dose, quadrivalent, PF 2 completed Cha Jones [address], [phone], [facility] 04/22/2023 11:34:45 COVID-19, mRNA, LNP-S, PF, 100 mcg/0.5mL dose or 50 mcg/0.25mL dose 1 completed Cha Jones DO [address] [place] [address], [phone], [facility] 04/22/2023 11:34:45 COVID-19, mRNA, LNP-S, PF, 100 mcg/0.5mL dose or 50 mcg/0.25mL dose 1 completed Cha Jones DO [address] [place] [address], [phone], [facility] 04/22/2023 11:34:45 COVID-19, mRNA, LNP-S, PF, 100 mcg/0.5mL dose or 50 mcg/0.25mL dose 1 completed Cha Jones DO [address] [place] [address], [phone], [facility] 04/22/2023 11:34:45 COVID-19, mRNA, LNP-S, bivalent, PF, 50 mcg/0.5 mL or 25mcg/0.25 mL dose 2 completed Cha Jones DO [address] [place] [address], [phone], [facility] 04/22/2023 11:34:45 pneumococcal polysaccharide PPV23 8 completed Cha Jones DO [address] [place], [address], [facility] 04/22/2023 11:34:45 Pneumococcal conjugate PCV 13 9 completed Cha Jones DO [address] [place] [address], [phone], [facility] 04/22/2023 11:34:45 Influenza, high-dose, quadrivalent, PF 3 completed Delmy jeter [facility] 06/21/2024 09:00:08 COVID-19, mRNA, LNP-S, PF, 50 mcg/0.5 mL 3 completed Delmy jeter [facility] 06/21/2024 09:00:08 Pneumococcal conjugate PCV20, polysaccharide XOM225 conjugate, adjuvant, PF 4 completed Cha Jones DO [address] [place] [address], [phone], [facility] 04/23/2023 08:45:56 Influenza, split virus, trivalent, PF 4 completed PINA jeter, [facility] 12/28/2023 11:39:19 Past Encounters Encounter ID Performer Location Encounter Start Date Encounter Closed Date Diagnosis/Indication Diagnosis SNOMED-CT Code Diagnosis ICD10 Code Diagnosis IMO Codes Diagnosis Note [id number] DO MELISA Mahajan ([facility]) [address] [place] [address] 11/03/2024 11:49:57 11/07/2024 17:46:59 Edema of lower extremity 218122960 R60.0 CVA - cere brovascular accident due to cerebral artery occlusion 021619400 I63.50 Congestive heart failure 37609514 I11.0 [id number] DO MELISA Mahajan ([facility]) [address] [place] [address] 12/01/2024 11:46:53 12/06/2024 10:05:32 Edema of lower extremity 604133772 R60.0 Type 2 ciro betes mellitus 19671926 E11.69 E11.42 E11.22 Health Concerns Section Related Observation LastModified by Organization Detai ls LastModified Time None Recorded Concern Status LastModified by Organization Details LastModified Time None Recorded Payers Encounter Date Sequence Insurance Name Policy Number Policy Mc Covered Member ID Mc Member ID Guarantor Name 12/01/2024 1 MEDICARE [place]: [place] Andrés Dumont [id number] Andrés Dumont 12/01/2024 2 [employer] (MEDICARE SUPPLEMENT) Andrés Dumont [id number] Andrés Dumont Notes Date Note Type Note Provider Name and Address Organization Details Recorded Time 5 text/html HypertensionReported by PatientHPIFor severity, patient reportsgrade 1 (130-139/80-89). For duration, patient reportshas noted for years. For alleviating factors, patient reportsmedication.ROS as noted in the HPI check up, c/o not sleeping well and edema. Juancarlos Lassiter DO [address] [place] [address], [phone], [facility] 12/05/2024 14:18:32
--- OUTSIDE RECORDS SUMMARY | 2025-02-10 13:53 | XMS_ITS | Clinical Summary ---
Author Organization [facility] Address [address] [place] [address] Care Team Providers Care Veterans' Counselor Name Role Phone Unavailable Primary Care Provider Unavailabl e Allergies Active Allergy Reactions Criticality Noted Date Comments Lovastatin Muscle Pain,Other (S ee Comments) Low 01/13/2023 Nipfwbm-Vsb-Voy Reductase Inhibitors Itching Low 12/30/2022 Medications pantoprazole (PROTONIX) 40 mg Tablet, Delayed Release (E.C.) Take 40 mg by mouth daily. Active rosuvastatin (CRESTOR) 40 mg tablet Take 40 mg by mouth daily. Active fluticasone propionate (FLONASE) 50 mcg/spray [place], Suspension nasal inhaler USE 2 SPRAY(S) IN [...] Daily Amount: 4 Tablets 15 Tablet 06/17/19 25 Active rivaroxaban (Xarelto) 20 mg Tablet Take [...] Tablet by mouth 2 times daily. 11/17/19 24 Active amiodarone (CORDARONE) 200 mg tablet Take [...] 06/06/2022 Epiretinal membrane (ERM) of right eye 2 Type 2 diabetes mellitus wit h both [...] PNEUM OCOCCAL CONJUGATE VACCINE 20-VALENT (PCV20), POLYSACCHARIDE SAV833 CONJUGATE, ADJUVANT 0.5 ML (PF) IM 04/22/2023 [...] 02/21/2019, 04/02/2017 Medical Devices Implanted Type Area Decontaminator Device Identifier Shelf Expiration Date Model / Serial / Lot Clip Ligating Horizon Med Ti [id number] - Csc - [id number] Implanted:Qty: 1 on 06/15/2024 by Mary Herrera DO at [facility] Clip Right: Groin TELEFLEX- WECK CLOSURE SYS [id number] 02/27/2029 [id number] / / [id number] Clip Ligating Horizon Red 549476 - Csc - [id number] Implanted:Qty: 1 on 06/15/2024 by Mary Herrera DO at [facility] Clip Right: Groin [employer]LE[employer] INC [id number] 02/16/2029 [id number] / / [id number] Agent Hemostat Surgicel 2x3in - [id number] Implanted:Qty: 1 on 06/15/2024 by Mary Herrera DO at [facility] Hemostatic Right: Groin J[employer]J- [employer] [id number] 09/19/20281952S / / [id number] Lens Iol Tecnis Eyhance 22.5 [id number] - [id number] Implanted:Qty: 1 on 12/16/2022 by Edison Cabrales MD at [facility] Lens Left: Eye GEE [employer] OPT[employer]-J[employer]J VISION 10/03/2025 [id number] / [id number] / NA Lens Iol Tecnis Eyhance 22.5 [id number] - [id number] Implanted:Qty: 1 on 12/30/2022 by Edison Cabrales MD at [facility] Lens Right: Eye [employer] VISION 09/04/2025 [id number] 25 / [id number] 24 / Stent Vasc Enroute 10-8x40mm [id number] - [id number] Implanted:Qty: 1 on 06/15/2024 by Mary Herrera DO at [facility] Stent Right: Carotid SILKROAD [id number] 10/20/2026 [id number] 0-TCS / / [id number] Procedures Procedure Name Priority Date/Time Associated Diagnosis Comments LIPID PANEL Routine 06/12/2024 7:23 AM CDT HEMOGLOBIN A1C Routine 06/12/2024 7:23 AM CDT from Last 3 Months or Most Recently Relevant to Health Maintenance Results * (ABNORMAL) HEMOGLOBIN A1C (06/12/2024 7:23 AM CDT) Pathologist [facility] HEMOGLOBIN A1C 7.5(H) <=5.6 % 06/13/2024 12:03 PM CDT [facility] EST. AVG GLUCOSE, A1C 169 mg/dL 06/13/2024 12:03 PM CDT [facility] Blood Venipuncture / Unknown 06/12/2024 7:23 AM CDT 06/12/2024 7:57 AM CDT [facility] - 06/13/2024 12:03 PM CDT HGB A1C INTERPRETATION NORMAL: <5.7% PRE-DIABETES: 5.7 - 6.4% DIABETES: 6.5% OR GREATER Alirio Mckenzie MD CHEMISTRY ORDERABLES Final R esult [facility] # [id number] [address] [place] [id number] * (ABNORMAL) LIPID PANEL (06/12/2024 7:23 AM CDT) [facility] CHOLESTEROL 89 <200 mg/dL 06/12/2024 10:40 AM CDT [facility] TRIGLYCERIDE 101 <150 mg/dL 06/12/2024 10:40 AM CDT [facility] HDL 34(L) 40 - 59 mg/dL 06/12/2024 10:40 AM CDT [facility] LDL CALCULATED 35 <100 mg/dL 06/12/2024 10:40 AM CDT [facility] NON-HDL CHOLESTEROL 55 <130 mg/dL 06/12/2024 10:40 AM CDT [facility] Blood Venipuncture / Unknown 06/12/2024 7:23 AM CDT 06/12/2024 7:57 AM CDT [facility] - 06/12/2024 10:40 AM CDT TOTAL CHOLESTEROL [...] Mckenzie MD CHEMISTRY ORDERABLES Final R esult [facility] CLIA # [id number] Replaced by [facility] [place] [address] from Last 3 Months or Most Recently Relevant to Health Maintenance Insurance MEDICARE PART A AND B [employer] SUPP ALESSIO RODGERS [id number] Advance Directives For more information, please contact: [phone] Documents on File Type Date Recorded Patient Last Model Maker Expl anation Advance Directive POA 08/10/2024 8:19 [...]
--- OUTSIDE RECORDS SUMMARY | 2025-02-10 13:53 | XMS_ITS | Data Portability ---
Author Organization CAYET[facility]O [facility] Address [address] [place] [address] Care Team Providers Care Drop Wire Stringer Name Role Phone CHA JONES Primary Care [...] By Organization Details Last Modified Time 12/01/2024 [id number] Sugars too high, increase insulin. Edema improved, weight down 5lbs in the last week, on lasix and metolazone. Will get bmp on Thursday. [email or web address] Not available 12/01/2024 12:12:16 12/22/2024 [id number] seen in ER for pneumonia, tx wtih doxy and prednisone. Breathing improved. Edema improving. Not available 12/22/2024 12:47:24 01/02/2025 [id number] Admitted with weakness and facial droop. 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 Diuretics held. Will schedule lasix daily and have staff get daily weights. Labs on Thursday. [email or web address] Not available 01/02/2025 13:52:25 01/19/2025 [id number] Admitted with volume overload. Started on BIPAP, diarised 7 liters. Weight down 21 lbs from ER admission. Labs on Thursday. f/u next week. [email or web address] Not available 01/19/2025 14:48:42 01/23/2025 [id number] Started on 1200 ml fluid restriction. Breathing improved. Weight down from 251 to 249. Sugars occasionally high, but mostly controlled. Not available 01/23/2025 12:31:34 Reason for Referral None Reported. Results Created Date Observation Date Name Description Value Unit Range Abnormal Flag Note LastModifiedBy Organization Detail LastModifiedTime Result Notes None recorded. Problems Name Problem SNOMED Code Status Onset Date Resolution Date Notes Provider Name and Address Organization Details Recorded Time Foot ulcer due to type 2 diabetes mellitus 58735265135 00 Active 2022 DIABETIC TOE ULCER; Impressi on: Right toe, resolved , continue s f/u with Dr. Goodman Delmy jeter [facility] 5 07:56:23 Type 2 diabetes mellitus 25439503 Active 2022 ELVIA jeter [facility] 3 11:57:16 Hypercho lesterol emia 43008141 Active 2022 Delmy jeetr [facility] 5 07:56:23 Ulcer of toe 589641960 Active 2022 Cha Jones, [address], [address] , [facility] 3 09:38:37 [facility] l hyperten sai 04704686 Active 2022 Delmy jeter [facility] 5 07:56:23 Atrial fibrilla tion 90334418 Active 2023 Delmy jeter [facility] 5 07:55:39 Age related macular degenera tion 961117073 Active 2023 Delmy jeter [facility] 5 07:55:35 Congesti ve heart failure 72979308 Active 2023 Delmy jeter, [facility] 5 07:55:51 Chronic kidney disease stage 3B 947136171 Active 2023 Delmy jeter, [facility] 5 07:55:45 Edema of lower extremit y 759150236 Active 2023 Delmyeduard Chujc jeter [facility] 5 07:56:23 Acute bronchit is 17315248 Completed 202306/21/2024 Delmy jeter, [facility] 5 07:55:32 Hypokale jerica 22455263 Active 2023 Delmy Mariscal [facility] 5 07:56:23 Pain of bilatera l hip joints 66321643030 670055 Active 2023 Delmy Mariscal [facility], [facility] 5 07:55:42 Gastroes ophageal reflux disease 204347473 Active 2023 Delmyisabell Mariscal [facility] 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 5 07:56:23 Abnormal gait due to muscle weakness 436014041 Active 2024 Delmy jeter [facility] 07:56:23 Right carotid artery stenosis 48287023098 9100 Active 2024 Delmy jeter, [facility] 5 11:28:49 Chronic bronchit is 33638139 Active 2024 Delmy jeter, [facility] 5 11:28:47 Primary biliary cholangi tis 10593934 Active 2024 Cha Jonse, [address], [address] , [facility] 11:27:33 Difficul ty sleeping 464916267 Active 2024 Rafiq Vignesh jeter, [facility] 5 17:35:55 Closed fracture of hip 284359860 Active 2024 ERIC jeter, [facility] 16:41:22 Bilatera l lower limb edema 265972436 [facility] 12:49:21 Pneumoni a 364746234 Active 2024 [facility] 12:47:01 Post-dis charge follow-u p 880050927 Active 2024 ERIC jeter [facility] 14:47:51 Acute exacerba tion of chronic congesti ve heart failure 496360657 Active 2024 [facility] 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 14:47:53 Obstruct victorina sleep apnea syndrome 64621385 Active 2024 [facility] 14:47:56 Chronic atrial fibrilla tion 768145374 Active 2024 ERIC jeter [facility] 14:47:57 Chronic kidney disease stage 3A 327525702 Active 2024 [facility] 14:47:59 Notes:Some problems listed i n Documents: #[id number], #[id number], #[id number], #[id number] could not be added to this patient's chart. Please review these documents and add these problems to the patient's chart manually as needed. Problem Notes None recorded. Procedures Surgical History Date Name Laterality Status Provider Name and Address Organization Details Recorded Time tonsillectomy completed ALEXIASTAR BURCIAGA [facility] 05/25/2024 11:58:08 Cholecystectomy completed ALEXIA [facility] 05/25/2024 11:58:14 Imaging Results None recorded. Procedure Notes None recorded. Medical Equipment None Reported. Allergies Allergen ID Allergen Name Allergen Category Reaction Reaction Severity Criticality Documentation Date Start Date Code Code System Note Provider Name and Address Organization Details Recorded Time 59 lovastati n medicatio n Not available Not available Not available 06/06/2022 6472 RxNorm [facility] 12:00:13 39690 Product containin g 3-hydroxy -3-methyl glutaryl- coenzyme A reductase inhibitor (product) medicatio n itching Not available low 02/03/20252022 79341 009 SNOMED Not Available stevie - External Data Service - prod 18:04:07 Medications Name Sig Start Date Stop Date Status Note LastModified by Organization Details LastModified Time Prescript ion - New 09/22 completed Not Available Not Available Not Available Prescript ion - Prior Authoriza tion Request active [place] 5/325 Not Available Not Available Not Available [...] Not Available loratadin e daily 12/24 completed 32418; Recorded 10/16/19 2:59PM by Elvia Singh (Authori michelle through Cha Jones , DO), Office Visit; Not Available Not Available Not Available Lasix every morning 12/24 completed DM/sd; 79704; Recorded 12/12/19 1:18PM by Elvia Singh (Authorpasquale martinez through [employer] , DO), Refill Request; Refill Quantity : 30; Tablet; Not Available Not Available Not Available fluconazo le daily 12/24 completed 0; Recorded 06/04/19 11:43AM by Pina Smart, Office Visit; Not Available Not Available Not Available carvedilo l two times daily 12/24 completed 11909; Recorded 02/26/20 11:07AM by Pina Smart (Vince martinez through [employer] , DO), Office Visit; Refill Quantity : 60; Tablet; Not Available Not Available Not Available hydralazi ne three times daily 12/24 completed DM/sd; 18780; Recorded 01/22/20 10:41AM by [email or web address] Medellin (Vince martinez through [employer] , DO), Office Visit; Refill Quantity : 0; Not Available Not Available Not Available lisinopri l daily 12/24 completed 96529; Recorded 11/13/19 9:23AM by Rafiq Medellin (Authorpasquale martinez through [employer] , DO), Office Visit; Refill Quantity : 90; Tablet; Not Available Not Available Not Available sildenafi l daily 12/24 completed 87786; Recorded 10/16/19 2:59PM by Elvia Singh (Authorpasquale johnsond through [employer] , DO), Office Visit; Not Available Not Available Not Available glipizide daily 12/24 completed 97032; Recorded 11/13/19 9:23AM by Rafiq Medellin (Authorpasquale martinez through [employer] , DO), Office Visit; Not Available Not Available Not Available multivita min active Not Available Not Available Not Available Potassium Chloride ER two times daily 12/24 completed DM/sd; 99890; Recorded 01/05/20 23 1:52PM by Elvia Singh (Vince martinez through Cha Jones DO), Annotati on/Adden dum; Refill Quantity : [...] Available Eliquis two times daily 12/24 completed 96614; Recorded 11/13/19 22 9:23AM by Rafiq Medellin (i michlele through Cha Jones DO), Office Visit; Refill Quantity : 60; Tablet; Not Available Not Available Not Available potassium chloride ER 20 mEq tablet,ex tended release Take 1 tablet every day by oral route. 06/21 completed Not Available Not Available Not Available FreeStyle Kalani 2 Sensor as directed 05/25 completed Not Available Not Available Not Available FreeStyle Kalani 2 [place] as directed 05/25 completed Not Available Not [...] 97.8 [degF] 98 % 142/75 mm[Hg] ERIC [facility] 5 12:09:25 Date Recorded Body height Heart rate Respiratory rate Body temperature Oxygen saturation Systolic And Diastolic Provider Name and Address Organization Details Last Updated DateTime 5 187.96 cm 67 /min 20 /min 98.5 [degF] 97 % 165/70 mm[Hg] ERIC [facility] 5 12:45:04 Date Recorded Body height Provider Name an d Address Organization Details Last Updated DateTime 01/02/2025 187.96 cm ERIC [facility] 01/02/2025 13:49:17 Date Recorded Body height Body mass index (BMI) Body weight Heart rate Respiratory rate Body temperature Oxygen saturation Systolic And Diastolic Provider Name and Address Organization Details Last Updated DateTime 5 187.96 cm 32.2 kg/m2 274120. 68 g 83 /min 18 /min 99.3 [degF] 93 % 132/78 mm[Hg] ERIC [facility] 14:44:47 Date Recorded Body height Body mass index (BMI) Body weight Heart rate Respiratory rate Body temperature Oxygen saturation Systolic And Diastolic Provider Name and Address Organization Details Last Updated DateTime 187.96 cm 31.7 kg/m2 405655. 32 g 70 /min 18 /min 97.8 [degF] 97 % 130/72 mm[Hg] ERIC [facility] 5 12:29:10 Social History Question Answer Notes LastModified by Organizat ion Details LastModified Time Tobacco Smoking Status Former Smoker [facility] 10/05/2023 09:45:48 What Is Your Level Of Caffeine Consumption? Moderate Coffee Information not available 05/25/2024 How Many Years Have You Smoked Tobacco? 20 Information not available 10/05/2023 Sex: Unknown Functional Status Question Answer Note LastModified by Organizat ion Details LastModified Time Do you use any illicit or recreational drugs? No [email or web address] Information not available 08/14/2022 Do you or have you ever used any other forms of tobacco or nicotine? No [email or web address] Information not available 08/14/2022 What is your level of alcohol consumption? None [email or web address] Information not available 08/14/2022 Are you currently employed? No Information not available 05/25/2024 Are you able to walk independently without assistance or assistive devices? YESASSIST walker [email or web address] Information not available 05/25/2024 Are you able to care for yourself independently? Yes [email or web address] Information not available 05/25/2024 Mental Status None recorded. Family History Relationship Description Onset Age of this Age Resolved Age Notes LastModified by Organization Details LastModified Time Father Diabetes mellitus [email or web address] Not available 05/25 11:55:50 Father Motor vehicle accident age 50 [email or web address] Not available 05/25/2024 11:56:43 Mother Malignant neoplasm of colon age 73 [email or web address] Not available 05/25/2024 11:56:22 Paternal Grandmother Natural [...] zoster recombinant 2 completed Cha Jones DO [address] [place] [address], [phone], [facility] 04/22/2023 11:34:44 zoster recombinant 2 completed Cha Jones DO [address] [place] [address], [phone], [facility] 04/22/2023 11:34:44 Influenza, high-dose, quadrivalent, PF 2 completed Cha Jones DO [address] [place] [address], [phone], [facility] 04/22/2023 11:34:45 COVID-19, mRNA, LNP-S, PF, 100 mcg/0.5mL dose or 50 mcg/0.25mL dose 1 completed Cha Jones DO [address] [place] [address], [phone], [facility] 04/22/2023 11:34:45 COVID-19, mRNA, LNP-S, PF, 100 mcg/0.5mL dose or 50 mcg/0.25mL dose 1 arthur Jones DO [address] [place] [address], [phone], [facility] 04/22/2023 11:34:45 COVID-19, mRNA, LNP-S, PF, 100 mcg/0.5mL dose or 50 mcg/0.25mL dose 1 arthur Jones DO [address] [place] [address], [phone], [facility] 04/22/2023 11:34:45 COVID-19, mRNA, LNP-S, bivalent, PF, 50 mcg/0.5 mL or 25mcg/0.25 mL dose 2 completed Cha Jones DO [address] [place] [address], [phone], [facility] 04/22/2023 11:34:45 pneumococcal polysaccharide PPV23 8 completed Cha Jones DO [address] [place] [address], [phone], [facility] 04/22/2023 11:34:45 Pneumococcal conjugate PCV 13 9 completed Cha Jones DO [address] [place] [address], [address], [facility] 04/22/2023 11:34:45 Influenza, high-dose, quadrivalent, PF 3 completed Delmy jeter, [facility] 06/21/2024 09:00:08 COVID-19, mRNA, LNP-S, PF, 50 mcg/0.5 mL 3 completed Delmy jeter [facility] 06/21/2024 09:00:08 Pneumococcal conjugate PCV20, polysaccharide [id number] conjugate, adjuvant, PF 4 completed Cha Jones DO [address] [place] [address], [phone], [facility] 04/23/2023 08:45:56 Influenza, split virus, trivalent, PF 4 completed PNIA jeter [facility] 12/28/2023 11:39:19 Past Encounters Encounter ID Performer Location Encounter Start Date Encounter Closed Date Diagnosis/Indication Diagnosis SNOMED-CT Code Diagnosis ICD10 Code Diagnosis IMO Codes Diagnosis Note [id number] Cha Jones DO [facility] ([facility]) [address] [place] [phone] 08/14/2022 08:51:29 08/14/2022 10:00:37 Type 2 diabetes mellitus 65933837 E11.69 E11.42 E11.22 a1c of 8.4 in May. pt has struggled with uncontroll ed and variable glucose levels for years. can be 70 up to 300. hard to control. pt has worked on diet and weight management . will repeat labs today. continue with podiatry. pt to continue meds: Glipizide 10mg and Lantus 32 units bid. will star Essential hypertension 10941432 I10 stable. conitnue: Amlodipine 10mg, Carvedilol 12.5mg bid, Hydralazin e 10mg tid, Lisinopril 40mg Ulcer of toe 057785047 L 97.509 currently healed. not seeing wound care anymore. Followed by Podiatry, Dr. Hensley. continues with diabetic shoes and daily foot care. Mixed hyperlipidemia 267 775426 E78.2 Stable. Will repeat labs. Continue rosuvastat in. Counseled on diet and exercise. Edema of l ower extremity 217016409 R60.0 concern for fluid overload. pt with hx of afib, I do not find hx of chf on available records. will get further records. pt to start lasix daily for 1 wk. limit salt. monitor HR and afib. Return to office with no improvemen t or any problems. Go to ER with severe worsening or severe problems. [id number] Cha Jones DO [facility] ([facility]) [address] [place] [phone] 12/24/2022 11:01:31 12/24/2022 13:53:03 Benign essential hypertension 9208818 I10 Hypercholesterolemia 136 20708 E78.00 Stable. Will repeat labs next appt. Continue Atorvastat in. Counseled on diet and exericse. Type 2 ciro betes mellitus 04953495 E11.69 E11.42 E11.22 A1c in july improved to 6.8.contin ue with podiatry. pt to continue meds: Glipizide 10mg and Lantus 32 units bid. will repeat labs. Essential hypertension 77751893 I10 Blood pressure getting low multiple times. We will decrease hydralazin e down to 25mg TID. conitnue: Amlodipine 10mg, Carvedilol 12.5mg bid, Lisinopril 40mg monitor blood pressure closely at home. [id number] JACQUI STRATTON [facility] ([facility]) [address] [place] [phone] 03/07/2023 11:53:03 03/14/2023 07:29:37 Viral screening 474972325 Z11.52 COVID-19 744030034 U07.1 [id number] Cha Jones DO [facility] ([facility]) [address] [place] [address] 04/22/2023 10:30:43 04/22/2023 12:34:01 Essential hypertension 44894619 I10 Blood pressure getting low multiple times. We will decrease hydralazin e down to 25mg TID. continue: Amlodipine 10mg, Carvedilol 12.5mg bid, Lisinopril 40mg monitor blood pressure closely at home.- Continue to monitor, counseled on fluid intake, stay well hydrated, log BP and HR when having symptoms, also log glucose. Hypercholesterolemia 136 40201 E78.00 Stable. Continue Atorvastat in. Counseled on diet and exercise. Foot ulcer due to type 2 diabetes mellitus 9831220307 100 E11.621 04/22/23- healed, continues seeing Podiatry. Atrial fibrillation 4943 6004 I48.91 Continue Xarelto and Carvedilol , following with Cardiology . Type 2 ciro betes mellitus 67494095 E11.69 E11.42 E11.22 04/22/23- A1c 7.2 on 12/24/22, will repeat lab today. Counseled on diet, exercise. Age relate d macular degeneration 041829807 H35.3290 Continue care with Ophthalmol ogist. Congestive heart failure 54895281 I11.0 Continue following with Cardiology . Chronic ki dney disease stage 3B 986074742 N18.32 E26.1 Labs today. Edema of l ower extremity 275864405 R60.0 04/22/23- continues Furosemide . Allergic rhinitis 521197 04 J30.9 Counseled continue nasal spray, daily allergy med Claritin/ Zyrtec, switch from what he is using now. Active or passive immunization 138196936 Z23 Flu vax UTD Dec 2022. Prevnar 20 today. [id number] Cha Jones DO [facility] ([facility]) [address] [place] [id number] 05/15/2023 10:21:46 05/15/2023 13:51:50 Type 2 diabetes mellitus 40647477 E11.69 E11.42 E11.22 glocose improved, will start CGMS. counseled Chronic ki dney disease stage 3B 387467662 N18.32 E26.1 improved slightly. counseled on fluid intake, diet, glucose management . Essential hypertension 64151829 I10 Blood pressure getting low multiple times. We will decrease hydralazin e down to 25mg BID. continue: Amlodipine 10mg, Carvedilol 12.5mg bid, Lisinopril 40mg monitor blood pressure closely at home.- Continue to monitor, counseled on fluid intake, stay well hydrated, log BP and HR when having symptoms, also log glucose. [id number] Cha Jones DO [facility] ([facility]) [address] [place] [phone] 06/10/2023 15:27:26 06/10/2023 16:47:08 Acute bronchitis 58889327 J20.9 Counseled continue Doxy, start Prednisone , Benzonatat e. Counseled Prednisone may increase glucose. [id number] Cha Jones DO [facility] ([facility]) [address] [place] [id number] 06/16/2023 09:40:54 06/16/2023 14:02:41 Type 2 diabetes mellitus 51928120 E11.69 E11.42 E11.22 06/16/23- Reviewed and discussed glucose log, improved until he started Prednisone , expect to come back down after Prednisone , continue current tx. Will try CGM sample today, Dexcom, insurance won't cover Kalani. Essential hypertension 32361959 I10 06/16/23- reviewed and discussed BP log, stable, continue current tx. [id number] Cha Jones DO [facility] ([facility]) [address] [place] [address] 07/15/2023 10:59:07 07/15/2023 11:42:02 Type 2 diabetes mellitus 96878672 E11.69 E11.42 E11.22 07/15/23- Running 200's all [...] sample today, Dexcom, insurance won't cover Kalani. [id number] Cha Jones DO [facility] ([facility]) [address] [place] [phone] 07/22/2023 10:25:41 07/22/2023 12:06:36 Type 2 diabetes mellitus 58480478 E11.69 E11.42 E11.22 07/22/23- Tolerating CGM, feels [...] today, Dexcom, insurance won't cover Kalani. Hypokalemia 64284268 E87 .6 Continues Lasix, will refill Potassium. Adult heal th examination 963468490 Z00.00 Reviewed and discussed recent lab, elevated liver enzymes, Hepatitis screening today. Counseled on diet, exercise, weight loss. Hypercholesterolemia 136 48037 E78.00 Counseled decrease Rosuvastat in from 40mg to 20mg daily d/t liver enzymes. Liver enzy mes outside reference range 841582951 R94.5 Reviewed lab, Hepatitis screening today, repeat lab in 4 months. [id number] Cha Jones DO [facility] ([facility]) [address] [place] [phone] 09/23/2023 10:43:22 09/23/2023 18:00:27 Type 2 diabetes mellitus 90832897 E11.69 E11.42 E11.22 09/23/23- Reviewed CGM readings, [...] Dexcom, insurance won't cover Kalani. Essential hypertension 58385409 I10 09/23/23- stable, continue current tx.06/16/23 - reviewed and discussed BP log, stable, continue current tx. [id number] JACQUI BROWN [facility] ([facility]) [address] [place] [phone] 10/05/2023 09:41:48 10/05/2023 12:13:36 Acute pansinusitis 6572389 J01.40 Discussed use of antibiotic . Take with food.May use Virgilio's nasal inserts and also apply on chest. Push oral fluids. Consider nasal saline rinses and otc decongesta nt.Use tylenol/mo raysa for reno. [id number] Cha Jones DO [facility] ([facility]) [address] [place] [phone] 10/12/2023 11:30:35 10/12/2023 13:41:05 Acute bronchitis 58933347 J20.9 No significan t improvemen ts with Augmentin. Will switch to doxycyclin e and add prednisone . Counseled. Return with worsening. [id number] Cha Jones DO [facility] ([facility]) [address] [place] [address] 11/17/2023 11:02:02 11/17/2023 14:19:34 Hypokalemia 83423882 E87.6 11/17/23- Reviewed recent lab, Lasix 40mg daily and Potassium 20meq daily for 5 days. Counseled on use of Potassium when taking Lasix. Essential hypertension 56188827 I10 11/17/23- counseled resume Lisinopril 20mg daily, had stopped it after [facility] stay. 4- stable, continue current tx.06/16/23 - reviewed and discussed BP log, stable, continue current tx. Type 2 ciro betes mellitus 87378246 E11.69 E11.42 E11.22 11/17/23- A1c 7.4 yesterday, 11/16/23, up from 7.1 on 07/20/23, advised resume DM meds, was taken off these during [facility] stay. Counseled on diet, exercise.- Reviewed [...] current tx. Will try CGM sample today, [facility], insurance won't cover Kalani. Chronic ki dney disease stage 3B 490990944 N18.32 E26.1 monitoring . Congestive heart failure 15422023 I11.0 Echo per [facility] 11/14/23: Summary and Conclusion :- Left ventricle: Not well visualized . The cavity size is normal. Wallthickn ess is normal. Global systolic function is vigorous. The estimatede jection fraction is 65-70%. For Epic reporting: the left ventricula rejection fraction is 68% No diagnostic regional wall motion abnormalit suzan dixon. Interventr icular septum shows abnormal bouncy motion. [...] worsening SOB. F/u next week, repeat lab. [id number] Cha Jones DO [facility] ([facility]) [address] [place] [phone] 11/24/2023 11:47:09 11/25/2023 11:01:59 Chronic kidney disease stage 3B 096527302 N18.32 E26.1 monitoring . [id number] Cha Jones DO [facility] ([facility]) [address] [place] [phone] 11/25/2023 11:09:55 11/25/2023 17:47:32 Hypokalemia 81602667 E87.6 11/25/23- repeat lab with K+ 3.1, counseled take Potassium 20meq daily.11/16- Reviewed recent lab, Lasix 40mg daily and Potassium 20meq daily for 5 days. Counseled on use of Potassium when taking Lasix. Essential hypertension [id number] I10 11/17/23- counseled resume Lisinopril 20mg daily, had stopped it after [facility] stay. 4- stable, continue current tx.06/16/23 - reviewed and discussed BP log, stable, continue current tx. Chronic ki dney disease stage 3B 868240212 N18.32 E26.1 monitoring . Congestive heart failure 28681933 I11.0 Echo per [facility] 11/14/23: Summary and Conclusion : - [...] 20mg daily with Potassium. F/u 1 month. [id number] Cha Jones DO [facility] ([facility]) [address] [place] [phone] 5 12/28/2023 10:19:43 12/28/2023 18:01:00 Hypokalemia 02747670 E87.6 12/28/23: pt has decreased KCL to 10meq daily. will repeat labs today 4- repeat lab with K+ 3.1, counseled take Potassium 20meq daily.11/16- Reviewed recent lab, Lasix 40mg daily and Potassium 20meq daily for 5 days. Counseled on use of Potassium when taking Lasix. Essential hypertension 22917339 I10 11/17/23- counseled resume Lisinopril 20mg daily, had stopped it after [facility] stay. 4- stable, continue current tx.06/16/23 - reviewed and discussed BP log, stable, continue current tx. Chronic ki dney disease stage 3B 639230362 N18.32 E26.1 monitoring , CR increased last visit, will repeat labs. counseled Congestive heart failure 58445672 I11.0 12/28/23: cotinue on furosemide and KCL. [...] SOB. F/u next week, repeat lab.Echo per [facility] 11/14/23: Summary and Conclusion : - [...] is 13mm Hg. Active or passive immunization 639287563 Z23 Flu vax UTD Dec 2022. Prevnar 20 today. Pain of bi lateral hip joints 2970993111 2449957 M25.551 M25.552 pain appears to be from lower back, SI b/l per exam. not hip joints. counseled on exercises and stretching . consider xrays if not improving. [id number] Cha Jones DO [facility] ([facility]) [address] [place] [phone] 5 02/23/2024 09:56:23 02/24/2024 12:36:21 Essential hypertension 70347471 I10 11/17/23- counseled resume Lisinopril 20mg daily, had stopped it after [facility] stay. 4- stable, continue current tx.06/16/23 - reviewed and discussed BP log, stable, continue current tx. Foot ulcer due to type 2 diabetes mellitus 6728011338 100 E11.621 04/22/23- healed, continues seeing Podiatry. Hypercholesterolemia 136 32534 E78.00 Counseled decrease Rosuvastat in from 40mg to 20mg daily d/t liver enzymes. [id number] Cha Jones DO [facility] ([facility]) [address] [place] [address] 03/01/2024 10:16:23 03/02/2024 14:15:42 Hypokalemia 14262156 E87.6 12/28/23: pt has decreased KCL to 10meq daily. will repeat labs today 4- repeat lab with K+ 3.1, counseled take Potassium 20meq daily.11/16- Reviewed recent lab, Lasix 40mg daily and Potassium 20meq daily for 5 days. Counseled on use of Potassium when taking Lasix. Essential hypertension 61562581 I10 03/01/24- Continue current tx, Lisinopril , refill Triamteren e.11/17/23- counseled resume Lisinopril 20mg daily, had stopped it after [facility] stay. 4- stable, continue current tx.06/16/23 - reviewed and discussed BP log, stable, continue current tx. Chronic ki dney disease stage 3B 913041501 N18.32 E26.1 monitoring , reviewed and discussed renal function lab today. Congestive heart failure 15787877 I11.0 12/28/23: continue on furosemide and KCL. [...] SOB. F/u next week, repeat lab.Echo per [facility] 11/14/23: Summary and Conclusion : - [...] is 13mm Hg. Gastroesop hageal reflux disease 862558078 K21.9 Stable, refill Pantoprazo le. Type 2 ciro betes mellitus 17102008 E11.69 E11.42 E11.22 03/01/24- Reviewed and discussed A1c, counseled on diet, exercise. Continue current tx, Glipizide, Lantus.10/22 10/13- A1c 7.4 yesterday, 11/16/23, up from 7.1 on 07/20/23, advised resume DM meds, was taken off these during [facility] stay. Counseled on diet, exercise.- Reviewed [...] sample today, Dexcom, insurance won't cover Kalani. [id number] JACQUI STRATTON [facility] ([facility]) [address] [place] [phone] 5 05/25/2024 10:34:49 05/25/2024 12:40:56 Cerebrovascular accident 516651800 I63.9 Recent hospitaliz ation. 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 Had ECHO and Carotid US in hospital.c ontinue on Xarelto and increased rosuvastat in. will add plavix for the next few wks.keep f/u neurology. Will order ST with MBS. Abnormal g ait due to muscle weakness 737693621 M62.81 s/p CVA that occurred 05/25/2024: with residual RUE and LLE weakness and mild to moderate dysarthria .contine PT and OT, order for walker. 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 will get MBS and ST. counseled [id number] Cha Jones DO [facility] ([facility]) [address] [place] [phone] 5 06/21/2024 08:40:51 06/21/2024 14:05:57 Hypokalemia 65081646 E87.6 07/04/24: reviewed labs, stable.12/28/23: pt has [...] brovascular accident due to cerebral artery occlusion 899652882 I63.50 occurred 05/25/2024: with residual RUE and LLE weakness and mild to moderate dysarthria . Had ECHO and Carotid US in hospital.c ontinue on Xarelto and increased rosuvastat in. will add plavix for the next few wks.keep f/u neurology. Will order ST with MBS. Right barlow tid artery stenosis 3338552114 53123 I65.21 s/p endovascul ar stent may 2024 after 2nd CVA. Performed at [facility] verona mcbridedavid ng well Chronic ki dney disease stage 3B 888724074 N18.32 E26.1 monitoring , reviewed and discussed renal function lab today. Essential hypertension 59487036 I10 06/21/24: continue lisinopril , hydralazin e, carvedilol and diazide.- Continue current tx, Lisinopril , refill Triamteren e.11/17/23- counseled resume Lisinopril 20mg daily, had stopped it after [facility] stay. 4- stable, continue current tx.06/16/23 - reviewed and discussed BP log, stable, continue current tx. Type 2 ciro betes mellitus 94912364 E11.69 E11.42 E11.22 03/01/24- Reviewed and discussed A1c, counseled on diet, exercise. Continue current tx, Glipizide, Lantus.10/22 10/13- A1c 7.4 yesterday, 11/16/23, up from 7.1 on 07/20/23, advised resume DM meds, was taken off these during [facility] stay. Counseled on diet, exercise.- Reviewed [...] won't cover Kalani. Gastroesop hageal reflux disease 663563385 K21.9 06/21/24: worsening, will continue Pantoprazo le. will get MBS. likely need ST.senior counsel ed on soft diet, chewing, swallowing . Chronic bronchitis 31164 004 J42 Congestive heart failure 73756111 I11.0 06/21/24: reviewed records as below. continue [...] ulcer due to type 2 diabetes mellitus 0503757077 100 E11.621 healed, continues seeing Podiatry. Hypercholesterolemia 136 73335 E78.00 conitnue Rosuvastat in 40mg. will monitor LFTs. Age relate d macular degeneration 500043947 H35.3290 Continue care with Ophthalmol ogist. [id number] Cha Jones DO [facility] ([facility]) [address] [place] [address] 07/04/2024 10:41:26 07/04/2024 12:24:48 Atrial fibrillation 81486546 I48.91 Continue Xarelto and Carvedilol , following with Cardiology . CVA - cere brovascular accident due to cerebral artery occlusion 630318110 I63.50 occurred 05/25/2024: with residual RUE and LLE weakness and mild to moderate dysarthria . Had ECHO and Carotid US in hospital. MBS and ST pending.co ntinue on Xarelto and increased rosuvastat in and plavix.uzma alcazar f/u neurology. Type 2 ciro betes mellitus 48769709 E11.69 E11.42 E11.22 07/04/24: some low glucose, will decrease lantus to 20u BID. monitor closely. f/u 1 mt. sooner with problems.1 05/02/23- Reviewed and discussed A1c, counseled on diet, exercise. Continue current tx, Glipizide, Lantus.10/22 10/13- A1c 7.4 yesterday, 11/16/23, up from 7.1 on 07/20/23, advised resume DM meds, was taken off these during [facility] stay. Counseled on diet, exercise.- Reviewed [...] won't cover Kalani. Primary bi liary cholangitis 18352776 K74.3 DX from [facility], Miri Gallo NP, 06/2024 with elevated Alk phos with + mitochondi ra M2 ab and JACQUE. started on Ursodiol. I reviewed records. continue urrsodiol. will monitor LFTs. counseled pt. [id number] Cha Jones DO [facility] ([facility]) [address] [place] [phone] 5 07/20/2024 16:27:28 07/25/2024 12:44:51 CVA - cerebrovascular accident due to cerebral artery occlusion 384467554 I63.50 07/20/24: Discussed MBS results, continue seeing ST, working on swallowing . occurred 05/25/2024: with residual RUE and LLE weakness and mild to moderate dysarthria .continue on Xarelto and increased rosuvastat in and plavix.uzma p f/u neurology. Difficulty sleeping 3013 17475 G47.9 162556 07/20/24: Counseled likely d/t increased stress and anxiousnes s r/t current state of health, will start Escitalopr am. Counseled on diagnosis, treatment options including medication s and possible side effects. Type 2 ciro betes mellitus 14538352 E11.69 E11.42 E11.22 07/20/24: Reviewed and discussed [...] DM meds, was taken off these during [facility] stay. Counseled on diet, exercise.- Reviewed [...] sample today, Dexcom, insurance won't cover Kalani. 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 5494331037 17215 I69.322 Closed fra cture of hip 714351295 S72.001S 3518434 [id number] Juancarlos Lassiter DO [facility] ([facility]) [address] [place], [place] [phone] 09/05/2024 13:24:33 09/12/2024 17:20:38 Bilateral lower limb edema 889475862 R60.0 9979804054 [id number] Juancarlos Lassiter [facility] ([facility]) [address] [place], [place] [phone] 09/15/2024 07:56:39 09/20/2024 14:25:30 Edema of lower extremity 864360176 R60.0 [id number] Juancarlos Lassiter [facility] ([facility]) [address] [place], [place] [phone] 09/22/2024 08:02:00 09/27/2024 08:13:45 Edema of lower extremity 256554476 R60.0 [id number] Juancarlos Lassiter DO [facility] ([facility]) [address] [place], [place] [phone] 11/03/2024 11:49:57 11/07/2024 17:46:59 Edema of lower extremity 857875590 R60.0 CVA - cere brovascular accident due to cerebral artery occlusion 604386348 I63.50 Congestive heart failure 78417653 I11.0 [id number] Juancarlos Lassiter [facility] ([facility]) [address] [place], [place] [address] 12/01/2024 11:46:53 12/06/2024 10:05:32 Edema of lower extremity 128258605 R60.0 Type 2 ciro betes mellitus 23632867 E11.69 E11.42 E11.22 [id number] Juancarlos Lassiter [facility]) [address] [place] [address] 12/22/2024 12:38:28 12/27/2024 08:38:20 Pneumonia 620376740 J18.9 66134433 [id number] Juancarlos Lassiter [facility]) [address] [place] [address] 01/02/2025 13:31:44 01/04/2025 08:08:13 Post-discharge follow-up 639449733 Z09 054293 History of cerebrovascular accident 808558925 Z86.73 329679 Chronic at rial fibrillation 052533703 I48.20 385140 Congestive heart failure 33295534 I11.0 Essential hypertension 47014815 I10 Type 2 ciro betes mellitus 82731060 E11.69 E11.42 E11.22 Chronic ki dney disease stage 3B 079396088 N18.32 E26.1 [id number] Juancarlos Lassiter [facility]) [address] [place] [address] 5 01/19/2025 14:03:19 01/24/2025 10:58:38 Post-discharge follow-up 716197169 Z09 970301 Acute exac erbation of chronic congestive heart failure 567934037 I50.9 0830977184 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.2X1A E03.2 6055367 Obstructiv e sleep apnea syndrome 37323205 G47.33 382477 Chronic at rial fibrillation 182639520 I48.20 972143 Chronic ki dney disease stage 3A 848204212 N18.31 6870459912 Type 2 ciro betes mellitus 32536432 E11.69 E11.42 E11.22 [id number] Juancarlos Lassiter [facility]) [address] [place] [address] 5 01/23/2025 11:55:55 01/30/2025 08:59:36 Edema of lower extremity 488593884 R60.0 Congestive heart failure 66642143 I11.0 Chronic at rial fibrillation 143417957 I48.20 879380 Health Concerns Section Related Observation LastModified by Organization Detai ls LastModified Time None Recorded Concern Status LastModified by Organization Details LastModified Time None Recorded Advance Directives Directive None Recorded Payers Insurance Date Sequence Insurance Name Policy Number Policy Mc Covered Member ID Mc Member ID Guarantor Name 01/31/2025 2 [employer] (MEDICARE SUPPLEMENT) Andrés Mandy Dumont [id number] Andrés Mandy Dumont 01/21/2025 1 [place] Andrés Dumont [id number] Andrés Dumont 06/18/2022 2 [employer] (INDEMNITY) Andrés Dumont [id number] Andrés Dumont 01/21/2025 [place] - [place] - [facility] (MEDICARE) Andrés Dumont [id number] Andrés Dumont Notes Date Note Type Note Provider Name and Address Organization Details Recorded Time 5 text/html HypertensionReported by PatientHPIFor severity, patient reportsgrade 1 (130-139/80-89). For duration, patient reportshas noted for years. For alleviating factors, patient reportsmedication.ROS as noted in the HPI check up, c/o not sleeping well and edema. Juancarlos Lassiter DO [address] [place] [address], [phone], [facility]CJose Antonio 12/05/2024 14:18:32 5 text/html HypertensionReported by PatientHPIFor severity, patient reportsgrade 1 (130-139/80-89). For duration, patient reportshas noted for years. For alleviating factors, patient reportsmedication.ROS as noted in the HPI ER follow up, seen for SOB. Juancarlos Lassiter DO [address] [place] [address], [phone], [facility] 12/26/2024 14:35:11 5 text/html HypertensionReported by PatientHPIFor severity, patient reportsgrade 1 (130-139/80-89). For duration, patient reportshas noted for years. For alleviating factors, patient reportsmedication.ROS as noted in the [facility] hospital follow up Juancarlos Lassiter DO [address] [place] [address], [phone], [facility], LJose AntonioLJose AntonioC. 01/02/2025 15:23:39 5 text/html HypertensionReported by PatientHPIFor severity, patient reportsgrade 1 (130-139/80-89). For duration, patient reportshas noted for years. For alleviating factors, patient reportsmedication.ROS as noted in the [facility] hospital follow up Juancarlos Lassiter DO [address] [place] [address], [phone], [facility], LJose AntonioLJose AntonioC. 01/20/2025 16:48:25 5 text/html HypertensionReported by PatientHPIFor severity, patient reportsgrade 1 (130-139/80-89). For duration, patient reportshas noted for years. For alleviating factors, patient reportsmedication.ROS as noted in the [facility] check up, breathing improved. Juancarlos Lassiter DO [address] [place] [address], [phone], [facility], [place] 01/27/2025 14:39:27
--- OUTSIDE RECORDS SUMMARY | 2025-02-10 13:53 | XMS_ITS | Patient Health Record ---
Author Organization [facility] Address [address] [place] [address] Care Team Providers Care Freezer Laboratory Technician Name Role Phone Humberto Griggs DO Primary Care Provider Unavail able AntonDenis Unavailable [phone] Allergies No Known Allergies Reason For Referral [...] Once a day Active Ergocalciferol 1.25 MG (32339 UT) Capsule 1 capsule Orally once weekly [...] Details Miscellaneous: Marital status: 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 Children: x2 Living with: spouse [...] Status Risk Notes Problem Diabetic renal disease (560067229) Type 2 diabetes mellitus with diabetic chronic kidney disease (E11.22) Active confirmed Problem Chronic kidney disease due to hypertension (408164126764827) Hypertensive chronic kidney disease with stage 1 through stage 4 chronic kidney disease, or unspecified chronic kidney disease (I12.9) Active confirmed Problem Hyperparathyroidism (67756780) Hyperparathyroidism (E21.3) Active confirmed Problem Benign hypertension (79169905) Hypertension, benign (I10) Active confirmed Problem Vitamin D deficiency (38755417) Vitamin D deficiency (E55.9) Active confirmed Problem Diabetic neuropathy (773971576) Diabetic neuropathy (E11.40) Active confirmed Problem Sleep apnea (35705450) Sleep apnea (G47.30) Active confirmed Problem Diabetes mellitus (92703848) Diabetes mellitus (E11.9) Active confirmed Problem Chronic kidney disease stage 3B (disorder) (616606543) Chronic kidney disease, stage 3b (N18.32) Active confirmed Plan Of Treatment Pending Test Test Name Order Date Albumin 92991 11/26/2021 Basic Metabolic Panel (BMP) 48844 2021 Magnesium (B) 14740 11/26/2021 Phosphorus (B) 33334 11/26/2021 Protein (U) Random 79521 11/26/2021 Uric Acid (B) 94500 11/26/2021 Vitamin D Total (B) 86128 11/26/2021 Creatinine (U) 84179 11/26/2021 UA Reflex Micro, Reflex Cult 05692, 8101 5, 09040 11/26/2021 PTH Intact 33511 11/26/2021 Insurance Providers Payer Name Payer Address Payer Phone Subscriber Number Group Number Insured Name Patient Relationship to Insured Coverage Start Date Coverage End Date [place] [address] [place] [id number] Andrés Dumont Self - patient is the insured [employer] [address] [address] [place]ESS[place]mal[place] [phone] [id number] Andrés Dumont Self - patient is the insured Medical (General) History Medical History History ICD Code type II diabetes mellitus hypertension (1997) hyperlipidemia peripheral neuropathy CKD secondary hyperparathyriodism Surgical History Surgery Date(Month/Year) cholecystectomy 08/2021 inguinal hernia repair right with hyproc adelia evacuation Hospitalization History Reason Date(Month/Year) see surgical
--- OUTSIDE RECORDS SUMMARY | 2025-02-10 13:53 | XMS_ITS | Continuity of Care Document ---
Author Organization [facility], LJose AntonioLLaura, [facility] ([facility]) Address [address] [place] [address] Care Team Providers Care Wool Grower Name Role Phone CHA JONES Primary Care [...] By Organization Details Last Modified Time 12/22/2024 [id number] seen in ER for pneumonia, tx wtih doxy and prednisone. Breathing improved. Edema improving. [email or web address] Not available 12/22/2024 12:47:24 Reason for Referral None Reported. Problems Name Problem SNOMED Code Status Onset Date Resolution Date Notes Provider Name and Address Organization Details Recorded Time Foot ulcer due to type 2 diabetes mellitus 22678275815 00 Active 2022 DIABETIC TOE ULCER; Impressi on: Right toe, resolved , continue s f/u with Dr. Goodman Delmy jeter [facility], L.LLaura 5 07:56:23 Type 2 diabetes mellitus 34247510 Active 2022 ELVIA jeter [facility], L.L.CJose Antonio 3 11:57:16 Hypercho lesterol emia 40961726 Active 2022 Delmy jeter [facility], L.LLaura 5 07:56:23 Ulcer of toe 444862886 Active 2022 Cha Jones, [address] [place] [address], [phone] , [facility], HanselCJose Antonio 3 09:38:37 [facility]ia l hyperten sai 17364719 Active 2022 Delmy jeter, [facility], HanselCJose Antonio 5 07:56:23 Atrial fibrilla tion 72435291 Active 2023 Delmy jeter, [facility], HanselCJose Antonio 5 07:55:39 Age related macular degenera tion 410525794 Active 2023 Delmy jeter, [facility], HanselCJose Antonio 5 07:55:35 Congesti ve heart failure 84591485 Active 2023 Delmy jeter, [facility], CandelariaL.CJose Antonio 5 07:55:51 Chronic kidney disease stage 3B 598520198 Active 2023 Delmy jetre, [facility], CandelariaL.CJose Antonio 5 07:55:45 Edema of lower extremit y 087347374 Active 2023 Delmy jeter [facility], HanselCJose Antonio 5 07:56:23 Acute bronchit is 84469454 Completed 202306/21/2024 Delmy jeter, [facility], CandelariaL.CJose Antonio 5 07:55:32 Hypokale jerica 55490028 Active 2023 Delmy jeter [facility], CandelariaL.CJose Antonio 5 07:56:23 Pain of bilatera l hip joints 76136684763 189228 Active 2023 Delmy jeter, [facility] L.L.C. 5 07:55:42 Gastroes ophageal reflux disease 323124199 Active 2023 Delmy jeter, [facility]. 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 5 07:56:23 Abnormal gait due to muscle weakness 403169621 Active 2024 [facility] 5 07:56:23 Right carotid artery stenosis 73843323223 9100 Active 2024 [facility] 5 11:28:49 Chronic bronchit is 44461362 Active 2024 Delmyisabell Mariscal [facility]. 5 11:28:47 Primary biliary cholangi tis 94462481 Active 2024 Cha Jones, DO [address] [place] [address], [phone] , [facility] 5 11:27:33 Difficul ty sleeping 748514374 Active 2024 [facility] 5 17:35:55 Closed fracture of hip 576484417 Active 2024 [facility] 16:41:22 Bilatera l lower limb edema 176456654 Active 2024 [facility] 12:49:21 Pneumoni a 890043057 Active 2024 [facility] 12:47:01 Post-dis charge follow-u p 924207843 Active 2024 [facility] 14:47:51 Acute exacerba tion of chronic congesti ve heart failure 530321027 Active 2024 [facility] 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 14:47:53 Obstruct victorina sleep apnea syndrome 85710695 Active 2024 [facility] 14:47:56 Chronic atrial fibrilla tion 041790225 Active 2024 [facility] 14:47:57 Chronic kidney disease stage 3A 898432974 Active 2024 [facility] 14:47:59 Notes:Some problems listed i n Documents: #[id number], #[id number], #[id number], #[id number] could not be added to this patient's chart. Please review these documents and add these problems to the patient's chart manually as needed. Problem Notes None recorded. Procedures Surgical History Date Name Laterality Status Provider Name and Address Organization Details Recorded Time tonsillectomy completed ALEXIA BURCIAGA [facility], [place] 05/25/2024 11:58:08 Cholecystectomy completed ALEXIA BURCIAGA [facility], [place] 05/25/2024 11:58:14 Imaging Results None recorded. Procedure Notes None recorded. Medical Equipment None Reported. Allergies Allergen ID Allergen Name Allergen Category Reaction Reaction Severity Criticality Documentation Date Start Date Code Code System Note Provider Name and Address Organization Details Recorded Time 59 lovastati n medicatio n Not available Not available Not available 06/06/2022 6472 RxNorm Sondra Quick steffany [facility], [place] 12:00:13 73005 Product containin g 3-hydroxy -3-methyl glutaryl- coenzyme A reductase inhibitor (product) medicatio n itching Not available low 02/03/20252022 85284 009 SNOMED Not Available [place] - External Data Service - prod 18:04:07 Medications Name Sig Start Date Stop Date Status Note LastModified by Organization Details LastModified Time Prescript ion - New 09/22 completed Not Available Not Available Not Available Prescript ion - Prior Authoriza tion Request active [place] 5/325 Not Available Not Available Not Available [...] twice a day 07/14 completed Recorded 04/07/19 1:15PM by Cha Jones DO, Office Visit; [...] MOUTH EVERY 12 HOURS FOR 7 DAYS 07/22 /2024 completed Not Available Not Available Not Available [...] Not Available loratadin e daily 12/24 completed 32756; Recorded 10/16/19 22 2:59PM by Elvia Singh (Vince martinez through Cha Jones DO), Office Visit; Not Available Not Available Not Available Lasix every morning 12/24 completed DM/sd; 86722; Recorded 12/12/19 22 1:18PM by Elvia Singh (Vince martinez through Cha Jones DO), Refill Request; Refill Quantity : 30; Tablet; Not Available Not Available Not Available fluconazo le daily 12/24 completed 0; Recorded 06/04/19 23 11:43AM by Pina Smart, Office Visit; Not Available Not Available Not Available carvedilo l two times daily 12/24 completed 77731; Recorded 02/26/20 22 11:07AM by Pina Smart (Vince martinez through Cha Jones DO), Office Visit; Refill Quantity : 60; Tablet; Not Available Not Available Not Available hydralazi ne three times daily 12/24 completed DM/sd; 14651; Recorded 01/22/20 22 10:41AM by Rafiq Medellin (Vince martinez through Cha Jones DO), Office Visit; Refill Quantity : 0; Not Available Not Available Not Available lisinopri l daily 12/24 completed 75960; Recorded 11/13/19 9:23AM by Rafiq Medellin (Authorpasquale martinez through Cha Jones , DO), Office Visit; Refill Quantity : 90; Tablet; Not Available Not Available Not Available sildenafi l daily 12/24 completed 91855; Recorded 10/16/19 2:59PM by Elvia Singh (Authorpasquale martinez through Cha Jones , DO), Office Visit; Not Available Not Available Not Available glipizide daily 12/24 completed 56614; Recorded 11/13/19 9:23AM by Rafiq Medellin (Authorpasquale martinez through Halo[employer] TherapeuticsDO raul), Office Visit; Not Available Not Available Not Available multivita min active Not Available Not Available Not Available Potassium Chloride ER two times daily 12/24 completed DM/sd; 45222; Recorded 03/27/19 1:52PM by Elvia Singh (Authorpasquale martinez through Halozyme Therapeuticsraul DO), Annotati on/Adden dum; Refill Quantity : [...] Available Eliquis two times daily 12/24 completed 31894; Recorded 11/13/19 9:23AM by Rafiq Medellin (Authorpasquale martinez through Cha Jones , DO), Office Visit; Refill Quantity : 60; Tablet; Not Available Not Available Not Available potassium chloride ER 20 mEq tablet,ex tended release Take 1 tablet every day by oral route. 06/21 completed Not Available Not Available Not Available FreeStyle Kalani 2 Sensor as directed 05/25 completed Not Available Not Available Not Available FreeStyle Kalani 2 Independence as directed 05/25 completed Not Available Not [...] Organization Details Last Updated DateTime 187.96 cm 67 /min 20 /min 98.5 [degF] 97 % 165/70 mm[Hg] ERIC JARAMILLO [facility] 12:45:04 Social History Question Answer Notes LastModified by Organizat ion Details LastModified Time Tobacco Smoking Status Former Smoker Edvin Jordan steffany [facility] 10/05/2023 09:45:48 What Is Your Level Of Caffeine Consumption? Moderate Coffee [email or web address] Information not available 05/25/2024 How Many Years Have You Smoked Tobacco? 20 [email or web address] Information not available 10/05/2023 Sex: Unknown Functional Status Question Answer Note LastModified by Organizat ion Details LastModified Time Do you use any illicit or recreational drugs? No [email or web address] Information not available 08/14/2022 Do you or have you ever used any other forms of tobacco or nicotine? No [email or web address] Information not available 08/14/2022 What is your level of alcohol consumption? None [email or web address] Information not available 08/14/2022 Are you currently employed? No [email or web address] Information not available 05/25/2024 Are you able to walk independently without assistance or assistive devices? YESASSIST walker [email or web address] Information not available 05/25/2024 Are you able to care for yourself independently? Yes [email or web address] Information not available 05/25/2024 Mental Status None recorded. Family History Relationship Description Onset Age of this Age Resolved Age Notes LastModified by Organization Details LastModified Time Father Diabetes mellitus Not available 05/25 11:55:50 Father Motor vehicle accident age 50 [email or web address] Not available 05/25/2024 11:56:43 Mother Malignant neoplasm of colon age 73 Not available 05/25/2024 11:56:22 Paternal Grandmother Natural age 102 [email or web address] Not available 05/25/2024 11:57:08 Medical History Condition Response Coronary Artery Disease N Gout N Other Y Kidney Stones N Blood Diseases N Hyperthyroidism N Blood Transfusion N Breast Cancer N COPD N Hypothyroidism N Lung Disease N Depression N Defects or Inherited Disease [...] Problems N GI Problems N ADD/ADHD N Eating Disorder N Skin Problems Y Anemia N Constipation N Mental Illness N Diabetes Y Ovarian Cancer N Bedwetting N Seizures/Epilepsy N Tuberculosis N Eczema N Abuse/Domestic Violence N Diverticulitis N Asthma N Reflux/GERD N Hepatitis N Heart Disease N Pulmonary Embolism N Chronic Ear Infections N Pre-Eclampsia N Hypertension Y Chicken Pox N Autism Spectrum Disorder (ASD) N Osteoporosis N Thrombophilias N Immunizations Vaccine Type Date Status Note Provider Nam e and Address Organization Details Recorded Time zoster recombinant 2 completed Cha Jones DO [address] [place] [address], [phone], [facility], L.L.CJose Antonio 04/22/2023 11:34:44 zoster recombinant 2 completed Cha Jones DO [address] [place] [address], [phone], [facility] 04/22/2023 11:34:44 Influenza, high-dose, quadrivalent, PF 2 completed Cha Jones DO [address] [place] [address], [phone], [facility] 04/22/2023 11:34:45 COVID-19, mRNA, LNP-S, PF, 100 mcg/0.5mL dose or 50 mcg/0.25mL dose 1 completed Cha Jones DO [address] [place] [address], [phone], [facility] 04/22/2023 11:34:45 COVID-19, mRNA, LNP-S, PF, 100 mcg/0.5mL dose or 50 mcg/0.25mL dose 1 completed Cha Jones DO [address] [place] [address], [phone], [facility] 04/22/2023 11:34:45 COVID-19, mRNA, LNP-S, PF, 100 mcg/0.5mL dose or 50 mcg/0.25mL dose 1 completed Cha Jones DO [address] [place] [address], [phone], [facility] 04/22/2023 11:34:45 COVID-19, mRNA, LNP-S, bivalent, PF, 50 mcg/0.5 mL or 25mcg/0.25 mL dose 2 completed Cha Jones DO [address] [place] [address], [phone], [facility] 04/22/2023 11:34:45 pneumococcal polysaccharide PPV23 8 completed Cha Jones DO [address] [place], [phone], [place] [facility] 04/22/2023 11:34:45 Pneumococcal conjugate PCV 13 9 completed Cha Jones DO [address] [place] [address], [phone], [facility] 04/22/2023 11:34:45 Influenza, high-dose, quadrivalent, PF 3 completed Delmy jeter, [facility] 06/21/2024 09:00:08 COVID-19, mRNA, LNP-S, PF, 50 mcg/0.5 mL 3 completed Delmy jeter, [facility] 06/21/2024 09:00:08 Pneumococcal conjugate PCV20, polysaccharide MXT933 conjugate, adjuvant, PF 4 completed Cha Jones DO [address] [place] [address], [phone], [facility] 04/23/2023 08:45:56 Influenza, split virus, trivalent, PF 4 completed PINA jeter, [facility] 12/28/2023 11:39:19 Past Encounters Encounter ID Performer Location Encounter Start Date Encounter Closed Date Diagnosis/Indication Diagnosis SNOMED-CT Code Diagnosis ICD10 Code Diagnosis IMO Codes Diagnosis Note [id number] Juancarlos Lassiter DO [facility] ([facility]) [address] [place] [phone] 12/01/2024 11:46:53 12/06/2024 10:05:32 Edema of lower extremity 701942563 R60.0 Type 2 ciro betes mellitus 63339565 E11.69 E11.42 E11.22 [id number] Juancarlos Lassiter DO [facility] ([facility]) [address] [place] [phone] 12/22/2024 12:38:28 12/27/2024 08:38:20 Pneumonia 173964983 J18.9 [id number] Health Concerns Section Related Observation LastModified by Organization Detai ls LastModified Time None Recorded Concern Status LastModified by Organization Details LastModified Time None Recorded Payers Encounter Date Sequence Insurance Name Policy Number Policy Mc Covered Member ID Mc Member ID Guarantor Name 12/22/2024 1 MEDICARE [place]: [place] Andrés Dumont [id number] Andrés Dumont 12/22/2024 2 [employer] (MEDICARE SUPPLEMENT) Andrés Dumont [id number] Andrés Dumont Notes Date Note Type Note Provider Name and Address Organization Details Recorded Time 5 text/html HypertensionReported by PatientHPIFor severity, patient reportsgrade 1 (130-139/80-89). For duration, patient reportshas noted for years. For alleviating factors, patient reportsmedication.ROS as noted in the [facility] ER follow up, seen for SOB. Juancarlos Lassiter, DO [address] [place] [address], [phone], [facility] 12/26/2024 14:35:11
--- OUTSIDE RECORDS SUMMARY | 2025-02-10 13:54 | XMS_ITS | Clinical Summary ---
Author Organization [facility] Facility Address [address] [place] [id number] Care Team Providers Care On Site Construction Superintendent Name Role Phone Unavailable Primary Care Provider [...] Description 11/22/2024 10:30 AM CDT Office Visit [facility] [address] [place] [address] Cassidy Alvarado NP Essential hypertension (Primary Dx); Diabetes mellitus without mention of complication, type II or unspecified type, not stated as uncontrolled (HCC); Longstanding persistent atrial fibrillation (HCC); Chronic kidney disease stage 3B (HCC) 11/22/2024 Documentation Only [facility], [facility] [address] [place] [address] Camasse, Tess 11/22/2024 Documentation Only [facility], [facility] [address] [place] [phone] Camasse, Tess 11/16/2024 Telephone [facility], [facility] [address] [place] [phone] Sangeetha Pollard MD 11/16/2024 Documentation Only [facility], [facility] [address] [place] [address] Camasse, Tess 11/11/2024 Telephone [facility], [facility] [address] [place] [phone] Sangeetha Pollard MD from Last 3 Months [...] st Contact Info) Description 2025 10:30 AM [employer]EWARD[employer] Office Visit [facility], [facility] [address] [place] [address] Cassidy Alvarado, ADVERTISING COPYWRITER [address] [address] Health Maintenance Due Date Last [...] ORDERABLES Final Re sult Performing Organization Address [facility]/ZIP Co de Phone Number PRINT/EXTERNAL (NON-INTERFACED LABS) * PTH, intact (11/18/2024 9:25 AM CDT) Parathyroid Hormone, Intact 140.8 pg/mL PRINT/ORGANIZATION DEVELOPMENT CONSULTANT AL (NON-INTERFACE D LABS) Blood Venous blood / Unknown 11/18/2024 9:25 AM CDT Sangeetha Pollard MD LAB BLOOD ORDERABLES Final Re sult Performing Organization Address [facility]/ZIP Co de Phone Number PRINT/EXTERNAL [...] mg/dL PRINT/EXTERNAL (NON-INTERFACE D LABS) eGFR Non-Afr [facility] 42.5 PRINT/EXTERNAL (NON-INTERFACE D LABS) Blood Venous blood / Unknown 11/18/2024 9:25 AM CDT us Sangeetha Pollard MD LAB BLOOD ORDERABLES Final Re sult PRINT/EXTERNAL (NON-INTERFACED LABS) from Last 3 Months Insurance Medicare [employer] [place] [place] [id number]
--- OUTSIDE RECORDS SUMMARY | 2025-02-10 13:54 | XMS_ITS | Continuity of Care Document ---
Author Organization [facility] [place], LAntonio, [facility] ([facility]) Address [address] [place] [address] Care Team Providers Care Monument Carver Name Role Phone CHA JONES Primary Care [...] Modified By Organization Details Last Modified Time 01/19/2025 [id number] Admitted with volume overload. Started on BIPAP, diarised 7 liters. Weight down 21 lbs from ER admission. Labs on Thursday. f/u next week. [email or web address] Not available 01/19/2025 14:48:42 Reason for Referral None Reported. Problems Name Problem SNOMED Code Status Onset Date Resolution Date Notes Provider Name and Address Organization Details Recorded Time Foot ulcer due to type 2 diabetes mellitus 95262878868 00 Active 2022 DIABETIC TOE ULCER; Impressi on: Right toe, resolved , continue s f/u with Dr. Goodman Delmy jeter [facility] LJose AntonioLLaura 5 07:56:23 Type 2 diabetes mellitus 81019982 Active 2022 [facility] 3 11:57:16 Hypercho lesterol emia 34663365 Active 2022 Delmy jeter [facility] 5 07:56:23 Ulcer of toe 832386636 Active 2022 Cha JonesDO [address] [place] [address], [phone] , [facility] 3 09:38:37 [facility] hyperten sai 36785707 Active 2022 Delmy jeter, [facility] 5 07:56:23 Atrial fibrilla tion 40061233 Active 2023 Delmy jeter [facility], Mandy.L.C. 5 07:55:39 Age related macular degenera tion 940129846 Active 2023 Delmy jeter [facility] 5 07:55:35 Congesti ve heart failure 58514258 Active 2023 Delmy jeter, [facility] 5 07:55:51 Chronic kidney disease stage 3B 733281446 Active 2023 Delmy jeter [facility] 5 07:55:45 Edema of lower extremit y 343623320 Active 2023 Delmy jeter [facility] 5 07:56:23 Acute bronchit is 38456402 Completed 202306/21/2024 Delmy jeter [facility] 5 07:55:32 Hypokale jerica 69938382 Active 2023 Delmy jeter [facility] 5 07:56:23 Pain of bilatera l hip joints 27889579640 646087 Active 2023 Delmy jeter, [facility] 5 07:55:42 Gastroes ophageal reflux disease 233831424 Active 2023 Delmy jeter, [facility] 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 5 07:56:23 Abnormal gait due to muscle weakness 491180374 Active 2024 Delmyisabell jeter, [facility] 5 07:56:23 Right carotid artery stenosis 82977551493 9100 Active 2024 Delmyisabell jeter, [facility] 5 11:28:49 Chronic bronchit is 35915328 Active 2024 Delmy Mariscal [facility], [facility] 5 11:28:47 Primary biliary cholangi tis 59588241 Active 2024 Cha Jones, DO [address] [place] [address], [address] , [facility] 5 11:27:33 Difficul ty sleeping 797780679 Active 2024 Rafiq jeter, [facility] 5 17:35:55 Closed fracture of hip 527623726 Active 2024 [facility] 16:41:22 Bilatera l lower limb edema 068376962 Active 2024 [facility] 12:49:21 Pneumoni a 631208138 Active 2024 [facility] 12:47:01 Post-dis charge follow-u p 661649370 Active 2024 ERIC JARAMILLO [facility] 14:47:51 Acute exacerba tion of chronic congesti ve heart failure 443763228 Active 2024 ERIC JARAMILLO [facility] 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 14:47:53 Obstruct victorina sleep apnea syndrome 09410846 Active 2024 ERIC JARAMILLO [facility] 14:47:56 Chronic atrial fibrilla tion 209992821 Active 2024 ERIC JARAMILLO [facility] 14:47:57 Chronic kidney disease stage 3A 526040965 Active 2024 ERIC JARAMILLO [facility] 14:47:59 Notes:Some problems listed i n Documents: #[id number], #[id number], #[id number], #[id number] could not be added to this patient's chart. Please review these documents and add these problems to the patient's chart manually as needed. Problem Notes None recorded. Procedures Surgical History Date Name Laterality Status Provider Name and Address Organization Details Recorded Time tonsillectomy completed ALEXIA BURCIAGA [facility], L.LLaura 05/25/2024 11:58:08 Cholecystectomy completed ALEXIA PATRICA [facility], L.LL[facility] 05/25/2024 11:58:14 Imaging Results None recorded. Procedure Notes None recorded. Medical Equipment None Reported. Allergies Allergen ID Allergen Name Allergen Category Reaction Reaction Severity Criticality Documentation Date Start Date Code Code System Note Provider Name and Address Organization Details Recorded Time 59 lovastati n medicatio n Not available Not available Not available 06/06/2022 6472 RxNorm Sondra Quick steffany [facility], LJose AntonioLLaura 3 12:00:13 26196 Product containin g 3-hydroxy -3-methyl glutaryl- coenzyme A reductase inhibitor (product) medicatio n itching Not available low 02/03/20252022 37461 009 SNOMED Not Available ruth - External Data Service - prod 18:04:07 Medications Name Sig Start Date Stop Date Status Note LastModified by Organization Details LastModified Time Prescript ion - New 09/22 completed Not Available Not Available Not Available Prescript ion - Prior Authoriza tion Request active [place] 5/325 Not Available Not Available Not Available [...] Not Available loratadin e daily 12/24 completed 22332; Recorded 10/16/19 22 2:59PM by Elvia Singh (Authori michelle through Cha Jones DO), Office Visit; Not Available Not Available Not Available Lasix every morning 12/24 completed DM/sd; 64481; Recorded 12/12/19 22 1:18PM by Elvia Singh (Vince martinez through Cha Jones DO), Refill Request; Refill Quantity : 30; Tablet; Not Available Not Available Not Available fluconazo le daily 12/24 completed 0; Recorded 06/04/19 23 11:43AM by Pina Smart, Office Visit; Not Available Not Available Not Available carvedilo l two times daily 12/24 completed 83686; Recorded 02/26/20 22 11:07AM by Pina Smart (Vince martinez through Cha Jones DO), Office Visit; Refill Quantity : 60; Tablet; Not Available Not Available Not Available hydralazi ne three times daily 12/24 completed DM/sd; 86028; Recorded 01/22/20 22 10:41AM by Rafiq Medellin (Authori zed through [employer] , DO), Office Visit; Refill Quantity : 0; Not Available Not Available Not Available lisinopri l daily 12/24 completed 47552; Recorded 11/13/19 9:23AM by Rafiq Medellin (Authori zed through [employer] , DO), Office Visit; Refill Quantity : 90; Tablet; Not Available Not Available Not Available sildenafi l daily 12/24 completed 14451; Recorded 10/16/19 2:59PM by Elvia Singh (Authori zed through [employer] , DO), Office Visit; Not Available Not Available Not Available glipizide daily 12/24 completed 80606; Recorded 11/13/19 9:23AM by Rafiq Medellin (Authori zed through [employer] , DO), Office Visit; Not Available Not Available Not Available multivita min active Not Available Not Available Not Available Potassium Chloride ER two times daily 12/24 completed DM/sd; 32292; Recorded 03/27/19 1:52PM by Elvia Singh (Authori zed through [employer] , DO), Annotati on/Adden dum; Refill Quantity [...] Available Eliquis two times daily 12/24 completed 81075; Recorded 11/13/19 9:23AM by Rafiq Medellin (Authori zed through Cha Jones DO), Office Visit; Refill Quantity : 60; Tablet; Not Available Not Available Not Available potassium chloride ER 20 mEq tablet,ex tended release Take 1 tablet every day by oral route. 06/21 completed Not Available Not Available Not Available FreeStyle Kalani 2 Sensor as directed 05/25 completed Not Available Not Available Not Available FreeStyle Kalani 2 [place] as directed 05/25 completed Not Available Not [...] Not Available Vitals Date Recorded Body height Body mass index (BMI) Body weight Heart rate Respiratory rate Body temperature Oxygen saturation Systolic And Diastolic Provider Name and Address Organization Details Last Updated DateTime 5 187.96 cm 32.2 kg/m2 902346. 68 g 83 /min 18 /min 99.3 [degF] 93 % 132/78 mm[Hg] ERIC FISHER [facility] 14:44:47 Social History Question Answer Notes LastModified by Ouroboros Details LastModified Time Tobacco Smoking Status Former Smoker Edvin Jordan steffany [facility] 10/05/2023 09:45:48 What Is Your Level Of Caffeine Consumption? Moderate Coffee [email or web address] Information not available 05/25/2024 How Many Years Have You Smoked Tobacco? 20 [email or web address] Information not available 10/05/2023 Sex: Unknown Functional Status Question Answer Note LastModified by Ouroboros Details LastModified Time Do you use any illicit or recreational drugs? No [email or web address] Information not available 08/14/2022 Do you or have you ever used any other forms of tobacco or nicotine? No [email or web address] Information not available 08/14/2022 What is your level of alcohol consumption? None [email or web address] Information not available 08/14/2022 Are you currently employed? No [email or web address] Information not available 05/25/2024 Are you able to walk independently without assistance or assistive devices? YESASSIST walker [email or web address] Information not available 05/25/2024 Are you able to care for yourself independently? Yes [email or web address] Information not available 05/25/2024 Mental Status None recorded. Family History Relationship Description Onset Age of this Age Resolved Age Notes LastModified by Organization Details LastModified Time Father Diabetes mellitus [email or web address] Not available 05/25 11:55:50 Father Motor vehicle accident age 50 [email or web address] Not available 05/25/2024 11:56:43 Mother Malignant neoplasm of colon age 73 [email or web address] Not available 05/25/2024 11:56:22 Paternal Grandmother Natural age 102 [email or web address] Not available 05/25/2024 11:57:08 Medical History Condition Response Coronary Artery Disease N Other Y Gout N Kidney Stones N Blood Diseases N Hyperthyroidism N Breast Cancer N Blood Transfusion N Depression N COPD N Lung Disease N Hypothyroidism N Developmental or Behavioral Disorders N Defects or Inherited Disease N Breast Problem N Difficulty Swallowing N [...] Immunizations Vaccine Type Date Status Note Provider Sonny greene and Address Organization Details Recorded Time zoster recombinant completed Cha Jones, [address] [place] [address], [phone], [facility] 04/22/2023 11:34:44 zoster recombinant 2 completed Cha Jones DO [address] [place] [address], [address] [place] [address], [facility] 04/22/2023 11:34:44 Influenza, high-dose, quadrivalent, PF 2 completed Cha Jones DO [address] [place] [address], [facility] 04/22/2023 11:34:45 COVID-19, mRNA, LNP-S, PF, 100 mcg/0.5mL dose or 50 mcg/0.25mL dose 1 completed Cha Jones [address], [address], [facility] 04/22/2023 11:34:45 COVID-19, mRNA, LNP-S, PF, 100 mcg/0.5mL dose or 50 mcg/0.25mL dose 1 completed Cha Jones DO [address] [place] [address], [phone], [facility] 04/22/2023 11:34:45 COVID-19, mRNA, LNP-S, PF, 100 mcg/0.5mL dose or 50 mcg/0.25mL dose 1 completed Cha Jones DO [address] [place] [address], [address], [facility] 04/22/2023 11:34:45 COVID-19, mRNA, LNP-S, bivalent, PF, 50 mcg/0.5 mL or 25mcg/0.25 mL dose 2 completed Cha Jones DO [address] [place] [phone], [facility] 04/22/2023 11:34:45 pneumococcal polysaccharide PPV23 8 completed Cha Jones DO [address] [place] [address], [phone], [facility] 04/22/2023 11:34:45 Pneumococcal conjugate PCV 13 9 completed Cha Jones DO [address] [place] [address], [address], [facility] 04/22/2023 11:34:45 Influenza, high-dose, quadrivalent, PF 3 completed Delmy jeter [facility] 06/21/2024 09:00:08 COVID-19, mRNA, LNP-S, PF, 50 mcg/0.5 mL 3 completed Delmy jeter, [facility] 06/21/2024 09:00:08 Pneumococcal conjugate PCV20, polysaccharide SBJ249 conjugate, adjuvant, PF 4 completed Cha Jones DO [address] [place] [address], [address], [facility] 04/23/2023 08:45:56 Influenza, split virus, trivalent, PF 4 completed PINA jeter [facility] 12/28/2023 11:39:19 Past Encounters Encounter ID Performer Location Encounter Start Date Encounter Closed Date Diagnosis/Indication Diagnosis SNOMED-CT Code Diagnosis ICD10 Code Diagnosis IMO Codes Diagnosis Note [id number] Juancarlos Lassiter DO [facility] ([facility]) [address] [place] [phone] 12/22/2024 12:38:28 12/27/2024 08:38:20 Pneumonia 861321185 J18.9 [id number] Juancarlos Lassiter DO [facility] ([facility]) [address] [place] [address] 01/02/2025 13:31:44 01/04/2025 08:08:13 Post-discharge follow-up 370768182 Z09 866351 History of cerebrovascular accident 699874624 Z86.73 591590 Chronic at rial fibrillation 059065346 I48.20 744918 Congestive heart failure 42025751 I11.0 Essential hypertension 75593124 I10 Type 2 ciro betes mellitus 85466769 E11.69 E11.42 E11.22 Chronic ki dney disease stage 3B 133359398 N18.32 E26.1 [id number] Juancarlos MaikolDO [facility] ([facility]) [address] [place] [address] 01/19/2025 14:03:19 01/24/2025 10:58:38 Post-discharge follow-up 649947133 Z09 112953 Acute exac erbation of chronic congestive heart failure 635264610 I50.9 1238970002 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 0543730102 58079 T46.2X1A E03.2 9174929 Obstructiv e sleep apnea syndrome 90486580 G47.33 582672 Chronic at rial fibrillation 062757663 I48.20 413411 Chronic ki dney disease stage 3A 005938578 N18.31 0389031089 Type 2 ciro betes mellitus 85406100 E11.69 E11.42 E11.22 Health Concerns Section Related Observation LastModified by Organization Detai ls LastModified Time None Recorded Concern Status LastModified by Organization Details LastModified Time None Recorded Payers Encounter Date Sequence Insurance Name Policy Number Policy Mc Covered Member ID Mc Member ID Guarantor Name 01/19/2025 1 [place] Andrés Dumont [id number] Andrés Dumont 01/19/2025 2 [employer] (MEDICARE SUPPLEMENT) Anrdés Dumont [id number] Andrés Dumont Notes Date Note Type Note Provider Name and Address Organization Details Recorded Time 5 text/html HypertensionReported by PatientHPIFor severity, patient reportsgrade 1 (130-139/80-89). For duration, patient reportshas noted for years. For alleviating factors, patient reportsmedication.ROS as noted in the [facility] hospital follow up Juancarlos Lassiter, DO [address] [place] [address], [phone], [facility] 01/20/2025 16:48:25
--- OUTSIDE RECORDS SUMMARY | 2025-02-10 13:54 | XMS_ITS | Continuity of Care Document ---
Author Organization [facility], [place], [facility] (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 Breathing improved. Weight down from 251 to 249. Sugars occasionally high, but mostly controlled. [email or web address] Not available 01/23/2025 12:31:34 Reason for Referral None Reported. 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 Goodman [facility] 07:56:23 Type 2 diabetes mellitus 45506593 Active 2022 ELVIA [facility]eter [facility] 3 11:57:16 Hypercho lesterol emia 90870484 Active 2022 Delmy jeter [facility] L.L.CJose Antonio 5 07:56:23 Ulcer of toe 043935018 Active 2022 Cha Jones, DO [address] [place] [address], [phone] , [facility], Allyson.CJose Antonio 3 09:38:37 Essentia l hyperten sai 95397674 Active 2022 Delmy jeter, [facility], LJose AntonioL.CJose Antonio 5 07:56:23 Atrial fibrilla tion 98501992 Active 2023 Delmy jeter [facility], CandelariaLJose AntonioCJose Antonio 5 07:55:39 Age related macular degenera tion 046940959 Active 2023 Delmy jeter [facility], CandelariaLJose AntonioCJose Antonio 5 07:55:35 Congesti ve heart failure 18077758 Active 2023 Delmy jeter [facility], LJose AntonioL.CJose Antonio 5 07:55:51 Chronic kidney disease stage 3B 918690325 Active 2023 Delmy jeter [facility], LJose AntonioL.C. 5 07:55:45 Edema of lower extremit y 862704470 Active 2023 Delmy jeter [facility], Candelaria[place].CJose Antonio 5 07:56:23 Acute bronchit is 85080107 Completed 202306/21/2024 Delmy jeter [facility], CandelariaL.CJose Antonio 5 07:55:32 Hypokale jerica 99548802 Active 2023 Delmy jeter [facility], LJose AntonioL.CJose Antonio 5 07:56:23 Pain of bilatera l hip joints 48054688762 114345 Active 2023 Delmy jeter, [facility]. 5 07:55:42 Gastroes ophageal reflux disease 729889384 Active 2023 Delmy jeter, [facility] 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 5 07:56:23 Abnormal gait due to muscle weakness 514979934 Active 2024 [facility] 5 07:56:23 Right carotid artery stenosis 14302411110 9100 Active 2024 Delmy [facility]cal [facility] 5 11:28:49 Chronic bronchit is 06372351 Active 2024 Delmy [facility]cal [facility] 5 11:28:47 Primary biliary cholangi tis 88333142 Active 2024 Cha Jones, DO [address] [place] [address], [phone] , [facility] 5 11:27:33 Difficul ty sleeping 821000648 Active 2024 Rafiq jeter, [facility] 5 17:35:55 Closed fracture of hip 470027837 Active 2024 ERIC jeter, [facility] 16:41:22 Bilatera l lower limb edema 719812206 Active 2024 ERIC JARAMILLO [facility] 12:49:21 Pneumoni a 216200278 Active 2024 ERIC JARAMILLO [facility] 12:47:01 Post-dis charge follow-u p 275138298 Active 2024 ERIC JARAMILLO [facility] 14:47:51 Acute exacerba tion of chronic congesti ve heart failure 219744074 Active 2024 ERICTANNER JARAMILLO [facility]. 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 14:47:53 Obstruct victorina sleep apnea syndrome 00394525 Active 2024 ERIC JARAMILLO [facility] 14:47:56 Chronic atrial fibrilla tion 269057333 Active 2024 ERIC JARAMILLO [facility] 14:47:57 Chronic kidney disease stage 3A 645138551 Active 2024 ERICTANNER JARAMILLO [facility] 14:47:59 Notes:Some problems listed i n Documents: #[id number], #[id number], #[id number], #[id number] could not be added to this patient's chart. Please review these documents and add these problems to the patient's chart manually as needed. Problem Notes None recorded. Procedures Surgical History Date Name Laterality Status Provider Name and Address Organization Details Recorded Time tonsillectomy completed ALEXIA PATRICA [facility] L.LJose AntonioCJose Antonio 05/25/2024 11:58:08 Cholecystectomy completed ALEXIA PATRICA [facility] L[facility]L.CJose Antonio 05/25/2024 11:58:14 Imaging Results None recorded. Procedure Notes None recorded. Medical Equipment None Reported. Allergies Allergen ID Allergen Name Allergen Category Reaction Reaction Severity Criticality Documentation Date Start Date Code Code System Note Provider Name and Address Organization Details Recorded Time 59 lovastati n medicatio n Not available Not available Not available 06/06/2022 6472 RxNorm Sondra Quick steffany [facility] L.L.CJose Antonio 12:00:13 77012 Product containin g 3-hydroxy -3-methyl glutaryl- coenzyme A reductase inhibitor (product) medicatio n itching Not available low 02/03/20252022 76114 009 SNOMED Not Available stevie - External Data Service - prod 18:04:07 Medications Name Sig Start Date Stop Date Status Note LastModified by Organization Details LastModified Time Prescript ion - New 09/22 completed Not Available Not Available Not Available Prescript ion - Prior Authoriza tion Request active Nekoma 5/325 Not Available Not Available Not Available [...] Not Available loratadin e daily 12/24 completed 75659; Recorded 10/16/19 22 2:59PM by Elvia Singh (Authorpasquale martinez through Cha Jones DO), Office Visit; Not Available Not Available Not Available Lasix every morning 12/24 completed DM/sd; 43744; Recorded 12/12/19 22 1:18PM by Elvia Singh (Authorpasquale martinez through Cha Jones DO), Refill Request; Refill Quantity : 30; Tablet; Not Available Not Available Not Available fluconazo le daily 12/24 completed 0; Recorded 06/04/19 23 11:43AM by Pina Smart, Office Visit; Not Available Not Available Not Available carvedilo l two times daily 12/24 completed 04233; Recorded 02/26/20 22 11:07AM by Pina Smart (Vince martinez through Cha Jones DO), Office Visit; Refill Quantity : 60; Tablet; Not Available Not Available Not Available hydralazi ne three times daily 12/24 completed DM/sd; 38482; Recorded 01/22/20 22 10:41AM by Rafiq Medellin (Authori michelle through Cha Jones DO), Office Visit; Refill Quantity : 0; Not Available Not Available Not Available lisinopri l daily 12/24 completed 11787; Recorded 11/13/19 9:23AM by Rafiq Medellin (Vince martinez through Strawberry energyon , DO), Office Visit; Refill Quantity : 90; Tablet; Not Available Not Available Not Available sildenafi l daily 12/24 completed 25255; Recorded 10/16/19 2:59PM by Elvia Singh (Authorpasquale martinez through [employer] , DO), Office Visit; Not Available Not Available Not Available glipizide daily 12/24 completed 77363; Recorded 11/13/19 9:23AM by Rafiq Medellin (Authorpasquale martinez through [employer] , DO), Office Visit; Not Available Not Available Not Available multivita min active Not Available Not Available Not Available Potassium Chloride ER two times daily 12/24 completed DM/sd; 91865; Recorded 03/27/19 1:52PM by Elvia Singh (Vince martinez through [employer] , DO), Annotati on/Adden dum; Refill Quantity [...] Available Eliquis two times daily 12/24 completed 48647; Recorded 11/13/19 9:23AM by Rafiq Medellin (Vince martinez through Strawberry energyraul DO), Office Visit; Refill Quantity : 60; Tablet; Not Available Not Available Not Available potassium chloride ER 20 mEq tablet,ex tended release Take 1 tablet every day by oral route. 06/21 completed Not Available Not Available Not Available FreeStyle Kalani 2 Sensor as directed 05/25 completed Not Available Not Available Not Available FreeStyle Kalani 2 Norman as directed 05/25 completed Not Available Not [...] Last Updated DateTime 187.96 cm 31.7 kg/m2 976091. 32 g 70 /min 18 /min 97.8 [degF] 97 % 130/72 mm[Hg] ERIC JARAMILLO [facility] 12:29:10 Social History Question Answer Notes LastModified by BasisCode Details LastModified Time Tobacco Smoking Status Former Smoker Edvin uJlian steffany [facility] 10/05/2023 09:45:48 What Is Your Level Of Caffeine Consumption? Moderate Coffee [email or web address] Information not available 05/25/2024 How Many Years Have You Smoked Tobacco? 20 Information not available 10/05/2023 Sex: Unknown Functional Status Question Answer Note LastModified by BasisCode Details LastModified Time Do you use any illicit or recreational drugs? No [email or web address] Information not available 08/14/2022 Do you or have you ever used any other forms of tobacco or nicotine? No [email or web address] Information not available 08/14/2022 What is your level of alcohol consumption? None Information not available 08/14/2022 Are you currently employed? No [email or web address] Information not available 05/25/2024 Are you able to walk independently without assistance or assistive devices? YESASSIST walker [email or web address] Information not available 05/25/2024 Are you able to care for yourself independently? Yes [email or web address] Information not available 05/25/2024 Mental Status None recorded. Family History Relationship Description Onset Age of this Age Resolved Age Notes LastModified by Organization Details LastModified Time Father Diabetes mellitus Not available 05/25 11:55:50 Father Motor vehicle accident age 50 [email or web address] Not available 05/25/2024 11:56:43 Mother Malignant neoplasm [...] zoster recombinant 2 completed Cha Jones DO [address] [place] [address], [phone], [facility] 04/22/2023 11:34:44 zoster recombinant 2 completed Cha Jones DO [address] [place] [address], [address] [place] [address], [facility] 04/22/2023 11:34:44 Influenza, high-dose, quadrivalent, PF 2 completed Cha Jones [address], [address] [place] [address], [facility] 04/22/2023 11:34:45 COVID-19, mRNA, LNP-S, PF, 100 mcg/0.5mL dose or 50 mcg/0.25mL dose 1 completed Cha Jones DO [address] [place] [address], [phone], [facility] 04/22/2023 11:34:45 COVID-19, mRNA, LNP-S, PF, 100 mcg/0.5mL dose or 50 mcg/0.25mL dose 1 completed Cha Jones DO [address] [place] [address], [phone], [facility] 04/22/2023 11:34:45 COVID-19, mRNA, LNP-S, PF, 100 mcg/0.5mL dose or 50 mcg/0.25mL dose 1 completed Cha Jones DO [address] [place] [address], [phone], [facility] 04/22/2023 11:34:45 COVID-19, mRNA, LNP-S, bivalent, PF, 50 mcg/0.5 mL or 25mcg/0.25 mL dose 2 completed Cha Jones DO [address] [place] [address], [phone], [facility] 04/22/2023 11:34:45 pneumococcal polysaccharide PPV23 8 completed Cha Jones DO [address] [place] [address], [phone], [facility] 04/22/2023 11:34:45 Pneumococcal conjugate PCV 13 9 completed Cha Jones DO [address] [place] [address], [phone], [facility] 04/22/2023 11:34:45 Influenza, high-dose, quadrivalent, PF 3 completed Delmy jeter [facility] 06/21/2024 09:00:08 COVID-19, mRNA, LNP-S, PF, 50 mcg/0.5 mL 3 completed Delmy jeter [facility] 06/21/2024 09:00:08 Pneumococcal conjugate PCV20, polysaccharide TSU968 conjugate, adjuvant, PF 4 completed Cha Jones DO [address] [place] [address], [phone], [facility] 04/23/2023 08:45:56 Influenza, split virus, trivalent, PF 4 completed PINA jeter [facility] 12/28/2023 11:39:19 Past Encounters Encounter ID Performer Location Encounter Start Date Encounter Closed Date Diagnosis/Indication Diagnosis SNOMED-CT Code Diagnosis ICD10 Code Diagnosis IMO Codes Diagnosis Note [id number] Juancarlos Lassiter DO [facility] ([facility]) [address] [place] [address] 01/02/2025 13:31:44 01/04/2025 08:08:13 Post-discharge follow-up 395898145 Z09 727853 History of cerebrovascular accident 973376922 Z86.73 077867 Chronic at rial fibrillation 938576840 I48.20 012701 Congestive heart failure 25954231 I11.0 Essential hypertension 66009874 I10 Type 2 ciro betes mellitus 96960085 E11.69 E11.42 E11.22 Chronic ki dney disease stage 3B 702647663 N18.32 E26.1 [id number] [facility] (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 ([facility]) [address] [place] [address] 01/23/2025 11:55:55 01/30/2025 08:59:36 Edema of lower extremity 827803406 R60.0 Congestive heart failure 62224971 I11.0 Chronic at rial fibrillation 448841592 I48.20 062629 Health Concerns Section Related Observation LastModified by Organization Detai ls LastModified Time None Recorded Concern Status LastModified by Organization Details LastModified Time None Recorded Payers Encounter Date Sequence Insurance Name Policy Number Policy Cm Covered Member ID Mc Member ID Guarantor Name 01/23/2025 1 [place]: [place] Andrés Dumont [id number] Andrés Dumont 01/23/2025 2 [employer] (MEDICARE SUPPLEMENT) Andrés Dumont [id number] Andrés Dumont Notes Date Note Type Note Provider Name and Address Organization Details Recorded Time 5 text/html HypertensionReported by PatientHPIFor severity, patient reportsgrade 1 (130-139/80-89). For duration, patient reportshas noted for years. For alleviating factors, patient reportsmedication.ROS as noted in the HPI check up, breathing improved. Juancarlos Lassiter, DO [address] [place] [address], [phone], [facility] 01/27/2025 14:39:27
--- OUTSIDE RECORDS SUMMARY | 2025-02-10 13:54 | XMS_ITS | Continuity of Care Document ---
Author Organization [facility] [place], [place], [facility] ([facility]) Address [address] [place] [address] Care Team Providers Care Pattern Lease Inspector Name Role Phone CHA JONES Primary Care [...] Modified By Organization Details Last Modified Time 01/02/2025 [id number] Admitted with weakness and facial droop. 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 Diuretics held. Will schedule lasix daily and have staff get daily weights. Labs on Thursday. [email or web address] Not available 01/02/2025 13:52:25 Reason for Referral None Reported. Problems Name Problem SNOMED Code Status Onset Date Resolution Date Notes Provider Name and Address Organization Details Recorded Time Foot ulcer due to type 2 diabetes mellitus 33093875449 00 Active 2022 DIABETIC TOE ULCER; Impressi on: Right toe, resolved , continue s f/u with Dr. Goodman [facility] 07:56:23 Type 2 diabetes mellitus 93487711 Active 2022 ELVIA [facility]eter [facility] 3 11:57:16 Hypercho lesterol emia 58952409 Active 2022 Delmy jeter [facility] Antonio 5 07:56:23 Ulcer of toe 376212770 Active 2022 Cha Jones, [address], [address] , [facility] 3 09:38:37 [facility]ia l hyperten sai 03540427 Active 2022 Delmy jeter, [facility] 5 07:56:23 Atrial fibrilla tion 30086713 Active 2023 Delmy jeter [facility], [facility].C[facility] Antonio 5 07:55:39 Age related macular degenera tion 228152854 Active 2023 Delmy jeter [facility] 5 07:55:35 Congesti ve heart failure 07956643 Active 2023 Delmy jeter [facility] 5 07:55:51 Chronic kidney disease stage 3B 726639599 Active 2023 Delmy jeter [facility] 5 07:55:45 Edema of lower extremit y 028928014 Active 2023 Delmy jeter [facility] 5 07:56:23 Acute bronchit is 10343659 Completed 202306/21/2024 Dlemy jeter [facility] 5 07:55:32 Hypokale jerica 73306788 Active 2023 Delmy jeter [facility] 5 07:56:23 Pain of bilatera l hip joints 58305126806 528979 Active 2023 Delmy jeter, [facility] 5 07:55:42 Gastroes ophageal reflux disease 612867839 Active 2023 Delmy jeter, [facility] 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 5 07:56:23 Dysarthr ia due to and followin g cerebrov ascular accident 94031093419 9103 Active 2024 Delmy jeter, [facility] 5 07:56:23 Abnormal gait due to muscle weakness 612106688 [facility] 5 07:56:23 Right carotid artery stenosis 96403006041 9100 Active 2024 Delmy Mariscal [facility] 5 11:28:49 Chronic bronchit is 73275677 Active 2024 [facility] [place] [facility] 5 11:28:47 Primary biliary cholangi tis 66416630 Active 2024 Cha Joens, [address], [address] , [facility] 5 11:27:33 Difficul ty sleeping 169485600 Active 2024 Rafiq jeter, [facility] 5 17:35:55 Closed fracture of hip 235805680 Active 2024 [facility] 16:41:22 Bilatera l lower limb edema 888367818 Active 2024 [facility] 12:49:21 Pneumoni a 825937808 Active 2024 [facility] 12:47:01 Post-dis charge follow-u p 720168543 Active 2024 [facility] 14:47:51 Acute exacerba tion of chronic congesti ve heart failure 377508795 Active 2024 [facility] 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 14:47:53 Obstruct victorina sleep apnea syndrome 67874474 Active 2024 [facility] 14:47:56 Chronic atrial fibrilla tion 481212577 Active 2024 [facility] 14:47:57 Chronic kidney disease stage 3A 989187754 Active 2024 ERIC JARAMILLO [facility] 14:47:59 Notes:Some problems listed i n Documents: #[id number], #[id number], #[id number], #[id number] could not be added to this patient's chart. Please review these documents and add these problems to the patient's chart manually as needed. Problem Notes None recorded. Procedures Surgical History Date Name Laterality Status Provider Name and Address Organization Details Recorded Time tonsillectomy completed ALEXIA BURCIAGA [facility] 05/25/2024 11:58:08 Cholecystectomy completed ALEXIA BURCIAGA [facility], LJose AntonioLLaura 05/25/2024 11:58:14 Imaging Results None recorded. Procedure Notes None recorded. Medical Equipment None Reported. Allergies Allergen ID Allergen Name Allergen Category Reaction Reaction Severity Criticality Documentation Date Start Date Code Code System Note Provider Name and Address Organization Details Recorded Time 59 lovastati n medicatio n Not available Not available Not available 06/06/2022 6472 RxNorm Sondra Quick steffany [facility] L[facility]LL[facility] 3 12:00:13 52076 Product containin g 3-hydroxy -3-methyl glutaryl- coenzyme A reductase inhibitor (product) medicatio n itching Not available low 02/03/20252022 24110 009 SNOMED Not Available [place] - External Data Service - prod 18:04:07 Medications Name Sig Start Date Stop Date Status Note LastModified by Organization Details LastModified Time Prescript ion - New 09/22 completed Not Available Not Available Not Available Prescript ion - Prior Authoriza tion Request active [place] 5/325 Not Available Not Available Not Available [...] Not Available loratadin e daily 12/24 completed 50385; Recorded 10/16/19 2:59PM by Elvia Singh (Authori michelle through Cha Jones DO), Office Visit; Not Available Not Available Not Available Lasix every morning 12/24 completed DM/sd; 76982; Recorded 12/12/19 1:18PM by Elvia Singh (Authori michelle through Cha Jones DO), Refill Request; Refill Quantity : 30; Tablet; Not Available Not Available Not Available fluconazo le daily 12/24 completed 0; Recorded 06/04/19 23 11:43AM by Pina Smart, Office Visit; Not Available Not Available Not Available carvedilo l two times daily 12/24 completed 63345; Recorded 02/26/20 22 11:07AM by Pina Smart (Vince martinez through Cha Jones DO), Office Visit; Refill Quantity : 60; Tablet; Not Available Not Available Not Available hydralazi ne three times daily 12/24 completed DM/sd; 85143; Recorded 01/22/20 10:41AM by Rafiq Medellin (Authori zed through [employer] , DO), Office Visit; Refill Quantity : 0; Not Available Not Available Not Available lisinopri l daily 12/24 completed 52016; Recorded 11/13/19 9:23AM by Rafiq Medellin (Authori zed through [employer] , DO), Office Visit; Refill Quantity : 90; Tablet; Not Available Not Available Not Available sildenafi l daily 12/24 completed 29409; Recorded 10/16/19 2:59PM by Elvia Singh (Authori zed through [employer] , DO), Office Visit; Not Available Not Available Not Available glipizide daily 12/24 completed 19629; Recorded 11/13/19 9:23AM by Rafiq Medellin (Authori zed through [employer] , DO), Office Visit; Not Available Not Available Not Available multivita min active Not Available Not Available Not Available Potassium Chloride ER two times daily 12/24 completed DM/sd; 04663; Recorded 03/27/19 1:52PM by Elvia Singh (Authori zed through [employer] , DO), Annotati on/Adden dum; Refill Quantity [...] Available Eliquis two times daily 12/24 completed 68338; Recorded 11/13/19 9:23AM by Rafiq Medellin (Authori zed through [employer] , DO), Office Visit; Refill Quantity : 60; Tablet; Not Available Not Available Not Available potassium chloride ER 20 mEq tablet,ex tended release Take 1 tablet every day by oral route. 06/21 completed Not Available Not Available Not Available FreeStyle Kalani 2 Sensor as directed 05/25 completed Not Available Not Available Not Available FreeStyle Kalani 2 Meigs as directed 05/25 completed Not Available Not [...] Not Available Vitals Date Recorded Body height Provider Name an d Address Organization Details Last Updated DateTime 01/02/2025 187.96 cm ERIC CLINT [facility] 01/02/2025 13:49:17 Social History Question Answer Notes LastModified by [email or web address] ion Details LastModified Time Tobacco Smoking Status Former Smoker Edvin Jordan steffany, [facility] 10/05/2023 09:45:48 What Is Your Level Of Caffeine Consumption? Moderate Coffee [email or web address] Information not available 05/25/2024 How Many Years Have You Smoked Tobacco? 20 [email or web address] Information not available 10/05/2023 Sex: Unknown Functional [...] available 08/14/2022 Are you currently employed? No [email or web address] Information not available 05/25/2024 Are you able to walk independently without assistance or assistive devices? YESASSIST walker [email or web address] Information not available 05/25/2024 Are you able to care for yourself independently? Yes [email or web address] Information not available 05/25/2024 Mental Status None recorded. Family History Relationship Description Onset Age of this Age Resolved Age Notes LastModified by Organization Details LastModified Time Father Diabetes mellitus Not available 05/25 11:55:50 Father Motor vehicle accident age 50 [email or web address] Not available 05/25/2024 11:56:43 Mother Malignant neoplasm of colon age 73 [email or web address] Not available 05/25/2024 11:56:22 Paternal Grandmother Natural age 102 [email or web address] Not available 05/25/2024 11:57:08 Medical History Condition [...] zoster recombinant 2 completed Cha Jones DO [address] [place] [address], [address], [facility], LBeatrizCJose Antonio 04/22/2023 11:34:44 zoster recombinant 2 completed Cha Jones DO [address] [place] [address], [address], [facility] 04/22/2023 11:34:44 Influenza, high-dose, quadrivalent, PF 2 completed Cha Jones DO [address] [place] [address], [address], [facility] 04/22/2023 11:34:45 COVID-19, mRNA, LNP-S, PF, 100 mcg/0.5mL dose or 50 mcg/0.25mL dose 1 completed Cha Jones [address], [address], [facility] 04/22/2023 11:34:45 COVID-19, mRNA, LNP-S, PF, 100 mcg/0.5mL dose or 50 mcg/0.25mL dose 1 completed Cha Jones DO [address] [place] [address], [address], [facility] 04/22/2023 11:34:45 COVID-19, mRNA, LNP-S, PF, 100 mcg/0.5mL dose or 50 mcg/0.25mL dose 1 completed Cha Jones [address], [address], [facility] 04/22/2023 11:34:45 COVID-19, mRNA, LNP-S, bivalent, PF, 50 mcg/0.5 mL or 25mcg/0.25 mL dose 2 completed Cha Jones [address], [address], [facility] 04/22/2023 11:34:45 pneumococcal polysaccharide PPV23 8 completed Cha Jones DO [address] [place] [address], [address], [facility] 04/22/2023 11:34:45 Pneumococcal conjugate PCV 13 9 completed Cha Jones DO [address] [place] [address], [address], [facility] 04/22/2023 11:34:45 Influenza, high-dose, quadrivalent, PF 3 completed Delmy jeter, [facility] 06/21/2024 09:00:08 COVID-19, mRNA, LNP-S, PF, 50 mcg/0.5 mL 3 completed Delmy jeter, [facility] 06/21/2024 09:00:08 Pneumococcal conjugate PCV20, polysaccharide [id number] conjugate, adjuvant, PF 4 completed Cha Jones DO [address] [place] [address], [address], [facility] 04/23/2023 08:45:56 Influenza, split virus, trivalent, PF 4 completed PINA jeter, [facility] 12/28/2023 11:39:19 Past Encounters Encounter ID Performer Location Encounter Start Date Encounter Closed Date Diagnosis/Indication Diagnosis SNOMED-CT Code Diagnosis ICD10 Code Diagnosis IMO Codes Diagnosis Note [id number] Juancarlos Lassiter DO [facility] ([facility]) [address] [place] [phone] 12/22/2024 12:38:28 12/27/2024 08:38:20 Pneumonia 547011590 J18.9 40752284 [id number] Juancarlos Lassiter DO [facility] ([facility]) [address] [place] [phone] 01/02/2025 13:31:44 01/04/2025 08:08:13 Post-discharge follow-up 685195387 Z09 878035 History of cerebrovascular accident 818037148 Z86.73 754988 Chronic at rial fibrillation 398824112 I48.20 911281 Congestive heart failure 62338795 I11.0 Essential hypertension 83950238 I10 Type 2 ciro betes mellitus 77669058 E11.69 E11.42 E11.22 Chronic ki dney disease stage 3B 015855949 N18.32 E26.1 Health Concerns Section Related Observation LastModified by Organization Detai ls LastModified Time None Recorded Concern Status LastModified by Organization Details LastModified Time None Recorded Payers Encounter Date Sequence Insurance Name Policy Number Policy Mc Covered Member ID Mc Member ID Guarantor Name 01/02/2025 1 MEDICARE [place]: [employer] Andrés Dumont [id number] Andrés Dumont 01/02/2025 2 [employer] (MEDICARE SUPPLEMENT) Andrés Dumont [id number] Andrés Dumont Notes Date Note Type Note Provider Name and Address Organization Details Recorded Time 5 text/html HypertensionReported by PatientHPIFor severity, patient reportsgrade 1 (130-139/80-89). For duration, patient reportshas noted for years. For alleviating factors, patient reportsmedication.ROS as noted in the [facility] hospital follow up Juancarlos Lassiter, DO [address] [place] [address], [address], [facility] 01/02/2025 15:23:39
[2025-02-10 14:17] LABS: Hematocrit 29.8 % (37-53); Hemoglobin 8.90 g/dL (11.27-16.99); Mean Corpuscular HGB Conc 29.9 g/dL (30-55); Mean Corpuscular Hemoglobin 26.5 pg (27-33); Mean Corpuscular Volume 88.7 fl (82-101); Nucleated Red Blood Cells % 0 %; Platelet Count 476 10^3/cmm (157-399); Red Blood Count 3.36 10^6/uL (3.85-5.65); White Blood Count 16.36 10^3/uL (3.29-11.43)
[2025-02-10 14:33] LABS: Alanine Aminotransferase 11 U/L (0-41); Albumin Level 2.9 g/dL (3.5-5.2); Alkaline Phosphatase 136 U/L (40-130); Anion Gap 12.9 (5-19); Aspartate Amino Transferase 15 U/L (0-40); Blood Urea Nitrogen 41 mg/dL (8-23); Calcium 8.5 mg/dL (8.5-10.5); Carbon Dioxide 33 mmol/L (22-29); Chloride 94 mmol/L (98-107); Creatinine Clr Calc Pharmacy 40.9209; Globulin 3.8 g/dL (1.3-4.6); Glucose 127 mg/dL (65-115); Osmolality Calculated 296 mOsm/kg (285-295); Sodium 137 mmol/L (136-145); Total Protein 6.7 g/dL (6.6-8.7)
[2025-02-10 14:36] LABS: Potassium 2.9 mmol/L (3.5-5.1)
--- NOTE | 2025-02-10 14:49 | ECG_ITS ---
[employer] Test Date: 2025-02-10 Pat Name: Andrés Dumont Department: Room: Gender: Male Cassandra Architect: : [id number] Requested By: Alexis Galvan Order Number: [id number] Twila MD: Danny Mcdonough M.D. Measurements Intervals [place] Rate: 68 P: 0 SD: 0 QRS: -60 QRSD: 94 T: 87 QT: 345 QTc: 369 Interpretive Statements ATRIAL FIBRILLATION Poor R wave progression LOW QRS VOLTAGE IN EXTREMITY LEADS [QRS DEFLECTION < 0.5 mV IN LIMB LEADS] PATTERN CONSISTENT WITH PULMONARY DISEASE LEFT ANTERIOR FASCICULAR BLOCK [QRS AXIS <= -45, QR IN I, RS IN II] INFERIOR MYOCARDIAL INFARCTION , PROBABLY OLD [40+ ms Q WAVE AND/OR ST/T ABNORMALITY IN II/aVF] Compared to ECG 01/14/2025 02:04:36 Left anterior fascicular block now present Left-axis deviation no longer present Myocardial infarct finding still present Electronically Signed On 02-11-2025 13:58:42 RECEPTION MANAGER by Danny Mcdonough M.D. [email or web address]
--- NOTE | 2025-02-10 14:55 | W.ED.WOUNDLC ---
HPI - Wound/Laceration General: Chief Complaint: Wound/Laceration Stated Complaint: foot wound Time Seen by Provider: 02/10/25 13:48 History of Present Illness: 79-year-old male presents emergency room with a right heel wound that has been ongoing for several months he has been seeing wound care for the last 6 months increasing pain to the foot with redness extending proximally through the calf. He is having increased pain as well denies any fever no drainage from the wound. Associated symptoms: Denies chills or fever(s) Related Data Home Medications ?Medication ?Instructions ?Recorded ?Confirmed pantoprazole 40 mg tablet,delayed 40 mg PO DAILY 11/19/20 02/06/25 release multivitamin (Multiple Vitamins 1 tab PO DAILY 03/28/24 02/06/25 tablet) albuterol sulfate 90 mcg/actuation 1 puff inhalation .Q4H PRN 07/23/24 02/06/25 aerosol inhaler Shortness Of Breath acetaminophen 325 mg capsule 650 mg PO QID PRN Pain 12/26/24 02/06/25 amiodarone 200 mg tablet 200 mg PO DAILY 12/26/24 02/06/25 sertraline 100 mg tablet 100 mg PO BEDTIME 12/26/24 02/06/25 bisacodyl 10 mg rectal suppository 10 mg LA DAILY PRN constipation 12/27/24 02/06/25 budesonide 32 mcg/actuation nasal 1 spray intranasal BID 12/27/24 02/06/25 spray insulin lispro 100 unit/mL 12 unit SUBCUT TID type 2 diabetes 12/27/24 02/06/25 subcutaneous pen (Humalog KwikPen (U-100) Insulin) rivaroxaban 20 mg tablet (Xarelto) 20 mg PO QPM 12/27/24 02/06/25 rosuvastatin 40 mg tablet 40 mg PO BEDTIME 12/27/24 02/06/25 sodium phosphates 19 gram-7 118 ml LA DAILY PRN Constipation 12/27/24 02/06/25 gram/118 mL enema (Fleet Enema) tamsulosin 0.4 mg capsule (Flomax) 0.4 mg PO BEDTIME 12/27/24 02/06/25 lidocaine HCl 2 % mucosal jelly See Rx Instructions .Route 01/13/25 02/06/25 .COMPLEX PRN Pain polyethylene glycol 3350 17 17 g PO DAILY 01/13/25 02/06/25 gram/dose oral powder (Miralax) Previous Rx's ?Medication ?Instructions ?Recorded cetirizine 5 mg tablet (Allergy 5 mg PO QPM PRN Allergy Symptoms 12/29/24 Relief (cetirizine)) #1 tab hydrocodone 5 mg-acetaminophen 325 1 tab PO Q6H PRN Pain, Moderate #1 12/29/24 mg tablet tab melatonin 3 mg tablet 3 mg PO BEDTIME PRN Sleep #1 tab 12/29/24 bumetanide 2 mg tablet 2 mg PO DAILY #30 tabs 01/17/25 clopidogrel 75 mg tablet 75 mg PO DAILY #30 tabs 01/17/25 dapagliflozin propanediol 5 mg 5 mg PO DAILY #30 tabs 01/17/25 tablet insulin glargine 100 unit/mL (3 40 unit (0.4 mL) SUBCUT BEDTIME 01/17/25 mL) subcutaneous pen (Lantus #0.01 mL Solostar U-100 Insulin) ipratropium 0.5 mg-albuterol 3 mg 3 ml inhalation Q6H PRN Shortness 01/17/25 (2.5 mg base)/3 mL nebulization Of Breath #90 mL soln levothyroxine 100 mcg tablet 100 mcg PO QAM #30 tabs 01/17/25 (Levoxyl) magnesium oxide 400 mg (241.3 mg 400 mg PO BID #60 tabs 01/17/25 magnesium) tablet metolazone 2.5 mg tablet 2.5 mg PO DAILY #30 tabs 01/17/25 metoprolol tartrate 25 mg tablet 25 mg PO BID@0900,2100 #60 tabs 01/17/25 potassium chloride 20 mEq 40 meq (2 x 20 mEq) PO DAILY #30 01/17/25 tablet,extended tabs release(part/cryst) (Klor-Con M) ursodiol 300 mg capsule 300 mg PO 2XD #60 caps 01/17/25 Allergies Allergy/AdvReac Type Severity Reaction Status Date / Time lovastatin Allergy RASH Verified 01/02/25 13:58 blood Allergy Unknown Trisha's Uncoded 01/02/25 13:58 witness Review of Systems Const: Denies: fever(s) or chills Card: Denies: chest pain Resp: Denies: dyspnea GI: Denies: abdominal pain : Denies: dysuria, urinary frequency or urinary urgency Musc: Denies: neck pain or back pain Skin/Breast: Denies: rash PFSH ED PFSH: Medical History Obesity (BMI 30-39.9) Sleep apnea Hypertension Anticoagulation adequate with anticoagulant therapy Atrial fibrillation with controlled ventricular rate BPH (benign prostatic hyperplasia) Mass of right kidney Diabetes mellitus Acute cholecystitis Callus of foot Chronic ulcer of great toe of right foot, limited to breakdown of skin Hammertoe Peripheral arterial disease Diabetic peripheral neuropathy associated with type 2 diabetes mellitus Diabetes mellitus GERD (gastroesophageal reflux disease) Venous insufficiency Prostatitis, acute Acute cystitis with hematuria Surgical History Hx of cholecystectomy Status post right inguinal hernia repair Status post colonoscopy (12/13/20) descending colon polyp H/O esophagogastroduodenoscopy (12/13/20) normal Hx of tonsillectomy Family History Mother , AT AGE 73 Cancer COLON Father , AT AGE 50 Diabetes Social History Smoking and tobacco/nicotine status: former use of tobacco/nicotine (quit in 1974) Alcohol intake: current Alcohol intake frequency: holidays/special occasions only Marital status: Current occupational status: retired Physical Exam Const: COMMON NORMALS: no acute distress GENERAL APPEARANCE: cooperative and comfortable ORIENTATION/CONSCIOUSNESS: Yes awake, Yes oriented to person, Yes oriented to place and Yes oriented to time HENMT: COMMON NORMALS: normocephalic, atraumatic and hearing grossly normal bilaterally HEAD & SCALP: normocephalic and atraumatic Resp: COMMON NORMALS: normal respiratory effort, No retractions, No use of accessory muscles and clear to auscultation bilaterally AUSCULTATION: clear to auscultation bilaterally Cardio: COMMON NORMALS: regular rate, regular rhythm and No murmurs present (Cardio) RATE: regular rate RHYTHM: regular rhythm GI: COMMON NORMALS: Soft to palpation and No hepatosplenomegaly present AUSCULTATION: Yes normoactive bowel sounds PALPATION: Yes Soft to palpation, No Tenderness to palpation present (GI), No Guarding due to palpation present (GI) and Yes No hepatosplenomegaly present Extremity: COMMON NORMALS: normal to inspection, capillary refill normal, no clubbing, cyanosis or edema, no calf tenderness and no pedal edema OTHER: Neuro: SENSORIUM/ORIENTATION: Yes oriented to person, Yes oriented to place and Yes oriented to time Skin: COMMON NORMALS: no rashes or lesions noted GENERAL SKIN EXAM: no rashes or lesions noted Course Vital Signs: Vital signs: Vital Signs Temperature 98.2 F 02/10/25 14:02 Pulse Rate 78 02/10/25 14:55 Blood Pressure 134/81 02/10/25 14:55 Pulse Oximetry 92 02/10/25 14:55 Oxygen Delivery Me thod Room Air 02/10/25 14:55 MDM - Wound/Laceration Lab Data 02/10/25 14:02 02/10/25 14:02 Laboratory Results WBC 16.36 10^3/uL (3.29-11.43) H 02/10/25 14:02 RBC 3.36 10^6/uL (3.85-5.65) L 02/10/25 14:02 Hgb 8.90 g/dL (11.27-16.99) L 02/10/25 14:02 Hct 29.8 % (37-53) L 02/10/25 14:02 MCV 88.7 fl (82-101) 02/10/25 14:02 MCH 26.5 pg (27-33) L 02/10/25 14:02 MCHC 29.9 g/dL (30-55) L 02/10/25 14:02 RDW 16.8 % (12.1-15.1) H 02/10/25 14:02 Plt Count 476 10^3/cmm (157-399) H 02/10/25 14:02 MPV 8.7 fL (7.4-10.4) 02/10/25 14:02 Neut % (Auto) 82.9 % 02/10/25 14:02 Lymph % (Auto) 4.5 % 02/10/25 14:02 [place] % (Auto) 10.4 % 02/10/25 14:02 Eos % (Auto) 1.4 % 02/10/25 14:02 Baso % (Auto) 0.1 % 02/10/25 14:02 Neut # (Auto) 13.56 10^3/uL (1.8-7.7) H 02/10/25 14:02 Lymph # (Auto) 0.7 10^3/uL (0.8-4.8) L 02/10/25 14:02 [place] # (Auto) 1.7 10^3/uL (0.2-0.9) H 02/10/25 14:02 Eos # (Auto) 0.2 10^3/uL (0.0-0.8) 02/10/25 14:02 Baso # (Auto) 0.0 10^3/uL (0.0-0.1) 02/10/25 14:02 Nucleated RBC % (auto) 0 % 02/10/25 14:02 Nucleated RBCs # 0.0 /100WBC 02/10/25 14:02 Sodium 137 mmol/L (136-145) 02/10/25 14:02 Potassium 2.9 mmol/L (3.5-5.1) L 02/10/25 14:02 Chloride 94 mmol/L (98-107) L 02/10/25 14:02 Carbon Dioxide 33 mmol/L (22-29) H 02/10/25 14:02 Anion Gap 12.9 (5-19) 02/10/25 14:02 BUN 41 mg/dL (8-23) H 02/10/25 14:02 Creatinine 2.0 mg/dL (0.7-1.2) H 02/10/25 14:02 GFR Calculation Not Reportable 02/10/25 14:02 Glucose 127 mg/dL (65-115) H 02/10/25 14:02 Calculated Osmolality 296 mOsm/kg (285-295) H 02/10/25 14:02 Lactic Acid 1.5 mmol/L (0.5-2.2) 02/10/25 14:02 Calcium 8.5 mg/dL (8.5-10.5) 02/10/25 14:02 Magnesium 2.0 mg/dL (1.7-2.3) 02/10/25 14:02 Total Bilirubin 0.4 mg/dL (0.15-1.2) 02/10/25 14:02 AST 15 U/L (0-40) 02/10/25 14:02 ALT 11 U/L (0-41) 02/10/25 14:02 Alkaline Phosphatase 136 U/L (40-130) H 02/10/25 14:02 Total Protein 6.7 g/dL (6.6-8.7) 02/10/25 14:02 Albumin 2.9 g/dL (3.5-5.2) L 02/10/25 14:02 Globulin 3.8 g/dL (1.3-4.6) 02/10/25 14:02 Discharge Plan Discharge Condition: Stable Prescriptions: No Action pantoprazole 40 mg tablet,delayed release (DR/EC) 40 mg PO DAILY amiodarone 200 mg tablet 200 mg PO DAILY acetaminophen 325 mg capsule 650 mg PO QID PRN (Reason: Pain) sertraline 100 mg tablet 100 mg PO BEDTIME multivitamin [Multiple Vitamins] Tablet 1 tab PO DAILY albuterol sulfate 90 mcg/actuation HFA aerosol inhaler 1 puff INHALATION .Q4H PRN (Reason: Shortness Of Breath) budesonide 32 mcg/actuation [place],Non-Aerosol 1 spray INTRANASAL BID Rx Instructions: administer into each nostril insulin lispro [Humalog KwikPen Insulin] 100 unit/mL insulin pen 12 unit SUBCUT TID bisacodyl 10 mg Suppository 10 mg LA DAILY PRN (Reason: constipation ) Fleet Enema 19-7 gram/118 mL Enema 118 ml LA DAILY PRN (Reason: Constipation) Xarelto 20 mg tablet 20 mg PO QPM tamsulosin [Flomax] 0.4 mg capsule 0.4 mg PO BEDTIME rosuvastatin 40 mg tablet 40 mg PO BEDTIME cetirizine [Allergy Relief (cetirizine)] 5 mg tablet 5 mg PO QPM PRN (Reason: Allergy Symptoms) Qty: 1 0RF hydrocodone-acetaminophen 5-325 mg tablet 1 tab PO Q6H PRN (Reason: Pain, Moderate) Qty: 1 0RF Rx Instructions: Dose change to PRN only melatonin 3 mg Tablet 3 mg PO BEDTIME PRN (Reason: Sleep) Qty: 1 0RF lidocaine HCl 2 % Jelly See Rx Instructions .ROUTE .COMPLEX PRN (Reason: Pain) Rx Instructions: Apply to penis topically as needed for pain. polyethylene glycol 3350 [Miralax] 17 gram/dose Powder 17 g PO DAILY insulin glargine [Lantus Solostar U-100 Insulin] 100 unit/mL (3 mL) insulin pen 40 unit SUBCUT BEDTIME Qty: 0.01 0RF clopidogrel 75 mg Tablet 75 mg PO DAILY Qty: 30 0RF dapagliflozin propanediol 5 mg Tablet 5 mg PO DAILY Qty: 30 0RF ipratropium-albuterol 0.5 mg-3 mg(2.5 mg base)/3 mL Solution For Nebulization 3 ml inhalation Q6H PRN (Reason: Shortness Of Breath) Qty: 90 0RF levothyroxine [Levoxyl] 100 mcg Tablet 100 mcg PO QAM Qty: 30 0RF metoprolol tartrate 25 mg Tablet 25 mg PO BID@0900,2100 Qty: 60 0RF potassium chloride [Klor-Con M20] 20 mEq Tablet,Er Particles/Crystals 40 meq PO DAILY Qty: 30 0RF bumetanide 2 mg tablet 2 mg PO DAILY Qty: 30 0RF ursodiol 300 mg capsule 300 mg PO 2XD Qty: 60 0RF magnesium oxide 400 mg (241.3 mg magnesium) Tablet 400 mg PO BID Qty: 60 0RF metolazone 2.5 mg tablet 2.5 mg PO DAILY Qty: 30 0RF Referrals: Humberto Griggs DO [Primary Care Provider, Family Practice] Print Language: Comoran Coding Level of Care Code ED Slot Supervisor for Lois Greco
--- NOTE | 2025-02-10 15:00 | US_ITS ---
WS: [id number] INDICATION: Cellulitis abscess TECHNIQUE: Ultrasound soft tissue area of concern FINDINGS: Ultrasound soft tissue of concern RIGHT posterior heel. Diffuse marked skin thickening compatible with cellulitis. Complex collection with dense echogenic material suspicious for abscess or hematoma. This is presumably abscess given clinical history. This does not appear easily drainable due to thick internal echogenic contents. Internal component measures approximately 2.1 x 1.1 x 4.0 cm US/US soft tissue/extremity [id number] IMPRESSION: Suspected abscess in the area of concern given clinical history. Th is does not appear easily drainable with thick echogenic internal contents. Hem atoma is an additional consideration
[2025-02-10 15:19] LABS: Lactic Sepsis W/Reflex 1.5 mmol/L (0.5-2.2); Magnesium 2.0 mg/dL (1.7-2.3)
[2025-02-10] MEDS: lidocaine 1% 5 ML in potassium chloride premix 100 ML 26.25 ML IV (15:35)
--- NOTE | 2025-02-10 16:37 | XRR_ITS ---
PROCEDURE INFORMATION: Exam: XR Right Foot Exam date and time: 02/10/2025 5:12 PM Age: 79 years old Clinical indication: Condition or disease; Other: Worsening wound to heel of right foot TECHNIQUE: Imaging protocol: Radiologic exam of the right foot. Views: 3 or more views. COMPARISON: CR XR foot RT min 3V* [id number] 12/02/2021 10:24 AM FINDINGS: Bones/joints: Bones No definite findings of osteomyelitis. There is a plantar calcaneal enthesophyte. Soft tissues: Soft tissues There is a 1.9 cm asymmetrically shaped low-density opacity abutting the posterior margin of the calcaneus seen only on the lateral projection. Its exact location and etiology is uncertain. Vasculature: There are extensive arterial calcifications. XR/XR foot RT min 3V* [id number] IMPRESSION: Soft tissue opacity abutting the posterior margin of the calcaneus of uncertain etiology and significance. No definite findings to suggest osteomyelitis.
[2025-02-10 17:31] LABS: Thyroid Stimulating Hormone 12.63 uIU/mL (0.27-4.20)
[2025-02-10] MEDS: heparin 5,000 unit/mL INJ 1 mL 5000 UNIT SUBCUT (17:34)
[2025-02-10] MEDS: pantoprazole 40 mg SDV IVP (17:40)
--- NOTE | 2025-02-10 17:51 | PM.HP ---
Providers/Chief Complaint Admitting Physician: Mitzy Marquis MD Primary Care Provider: Humberto Griggs DO Chief Complaint: foot wound History of Present Illness As per the previous notes and the patient Andrés Dumont is a 79 year old male with a history of atrial fibrillation, cerebrovascular accident, chronic kidney disease, T2DM insulin dependent, hypertension, and sleep apnea presented to ER with right heel wound that has been there for several months and has been worsening recently from the last 3 days approx with increase in pain and redness distally to the calf muscle. there were no reported fevers or chills or any SOB. no oozing from the wound. no chest pain, chest pressure, abd pain or any nausea or vomiting. no change in his urinary or bowel habits. no wt loss. rest of the review of system is unremarkable OF NOTE: PATIENT IS A JEHOVAS WITNESS, NO BLOOD PRODUCTS OR PRBC TRANSFUSIONS IF DROP IN HB THEN FOR IRON SUPPLEMENTS OR IRON INFUSIONS ACCEPTABLE Review of Systems General: Reports: 10 or more systems reviewed and unremarkable except in HPI and below Medications/Allergies Home Medications ?Medication ?Instructions ?Recorded ?Confirmed ?Last Taken ?Type pantoprazole 40 mg tablet,delayed 40 mg PO DAILY 11/19/20 02/06/25 01/13/25 History release multivitamin (Multiple Vitamins 1 tab PO DAILY 03/28/24 02/06/25 01/13/25 History tablet) albuterol sulfate 90 mcg/actuation 1 puff inhalation .Q4H PRN 07/23/24 02/06/25 Unknown History aerosol inhaler Shortness Of Breath acetaminophen 325 mg capsule 650 mg PO QID PRN Pain 12/26/24 02/06/25 12/24/24 20:05 History amiodarone 200 mg tablet 200 mg PO DAILY 12/26/24 02/06/25 01/13/25 History sertraline 100 mg tablet 100 mg PO BEDTIME 12/26/24 02/06/25 01/12/25 History bisacodyl 10 mg rectal suppository 10 mg MS DAILY PRN constipation 12/27/24 02/06/25 Unknown History budesonide 32 mcg/actuation nasal 1 spray intranasal BID 12/27/24 02/06/25 01/13/25 History spray insulin lispro 100 unit/mL 12 unit SUBCUT TID type 2 diabetes 12/27/24 02/06/25 01/13/25 History subcutaneous pen (Humalog KwikPen (U-100) Insulin) rivaroxaban 20 mg tablet (Xarelto) 20 mg PO QPM 12/27/24 02/06/25 01/12/25 History rosuvastatin 40 mg tablet 40 mg PO BEDTIME 12/27/24 02/06/25 01/12/25 History sodium phosphates 19 gram-7 118 ml MS DAILY PRN Constipation 12/27/24 02/06/25 Unknown History gram/118 mL enema (Fleet Enema) tamsulosin 0.4 mg capsule (Flomax) 0.4 mg PO BEDTIME 12/27/24 02/06/25 01/12/25 History cetirizine 5 mg tablet (Allergy 5 mg PO QPM PRN Allergy Symptoms 12/29/24 02/06/25 12/26/24 19:40 Rx Relief (cetirizine)) #1 tab hydrocodone 5 mg-acetaminophen 325 1 tab PO Q6H PRN Pain, Moderate #1 12/29/24 02/06/25 12/25/24 12:05 Rx mg tablet tab melatonin 3 mg tablet 3 mg PO BEDTIME PRN Sleep #1 tab 12/29/24 02/06/25 12/26/24 19:40 Rx lidocaine HCl 2 % mucosal jelly See Rx Instructions .Route 01/13/25 02/06/25 Unknown History .COMPLEX PRN Pain polyethylene glycol 3350 17 17 g PO DAILY 01/13/25 02/06/25 01/13/25 History gram/dose oral powder (Miralax) bumetanide 2 mg tablet 2 mg PO DAILY #30 tabs 01/17/25 02/06/25 Unknown Rx clopidogrel 75 mg tablet 75 mg PO DAILY #30 tabs 01/17/25 02/06/25 Unknown Rx dapagliflozin propanediol 5 mg 5 mg PO DAILY #30 tabs 01/17/25 02/06/25 Unknown Rx tablet insulin glargine 100 unit/mL (3 40 unit (0.4 mL) SUBCUT BEDTIME 01/17/25 02/06/25 01/12/25 Rx mL) subcutaneous pen (Lantus #0.01 mL Solostar U-100 Insulin) ipratropium 0.5 mg-albuterol 3 mg 3 ml inhalation Q6H PRN Shortness 01/17/25 02/06/25 Unknown Rx (2.5 mg base)/3 mL nebulization Of Breath #90 mL soln levothyroxine 100 mcg tablet 100 mcg PO QAM #30 tabs 01/17/25 02/06/25 Unknown Rx (Levoxyl) magnesium oxide 400 mg (241.3 mg 400 mg PO BID #60 tabs 01/17/25 02/06/25 Unknown Rx magnesium) tablet metolazone 2.5 mg tablet 2.5 mg PO DAILY #30 tabs 01/17/25 02/06/25 Unknown Rx metoprolol tartrate 25 mg tablet 25 mg PO BID@0900,2100 #60 tabs 01/17/25 02/06/25 Unknown Rx potassium chloride 20 mEq 40 meq (2 x 20 mEq) PO DAILY #30 01/17/25 02/06/25 Unknown Rx tablet,extended tabs release(part/cryst) (Klor-Con M) ursodiol 300 mg capsule 300 mg PO 2XD #60 caps 01/17/25 02/06/25 01/13/25 Rx Allergies Allergy/AdvReac Type Severity Reaction Status Date / Time lovastatin Allergy RASH Verified 01/02/25 13:58 blood Allergy Unknown Jehovah's Uncoded 01/02/25 13:58 witness PFSH Acute PFSH: Medical History (Updated 02/10/25 @ 17:55 by Mitzy Marquis MD) Obesity (BMI 30-39.9) Sleep apnea Hypertension Anticoagulation adequate with anticoagulant therapy Atrial fibrillation with controlled ventricular rate BPH (benign prostatic hyperplasia) Mass of right kidney Diabetes mellitus Acute cholecystitis Callus of foot Chronic ulcer of great toe of right foot, limited to breakdown of skin [place] Peripheral arterial disease Diabetic peripheral neuropathy associated with type 2 diabetes mellitus Diabetes mellitus GERD (gastroesophageal reflux disease) Venous insufficiency Prostatitis, acute Acute cystitis with hematuria Surgical History Hx of cholecystectomy Status post right inguinal hernia repair Status post colonoscopy (12/13/20) descending colon polyp H/O esophagogastroduodenoscopy (12/13/20) normal Hx of tonsillectomy Family History Mother , AT AGE 73 Cancer COLON Father , AT AGE 50 Diabetes Social History Smoking and tobacco/nicotine status: former use of tobacco/nicotine (quit in 1974) Alcohol intake: current Alcohol intake frequency: holidays/special occasions only Marital status: Current occupational status: retired Vitals/I&O/Wt Last Vital Signs Temp 98.2 F 02/10/25 14:02 Pulse 75 02/10/25 17:43 BP 160/75 02/10/25 17:43 Pulse Ox 100 02/10/25 17:43 O2 Del Method Nasal Cannula 02/10/25 17:43 O2 Flow Rate 3 02/10/25 17:43 Weight last 48 hrs Weight 114.305 kg Physical Exam Narrative: General: morbidly obese gentleman, Alert and oriented, lying comfortably with mild discomfort from the right heel wound, on 2-3 l NC O2 supplementation able to complete sentences. HEENT: Normocephalic, atraumatic, grossly unremarkable exam Cardio: normal rate rhythm, normal S1-S2 without any murmurs, rubs, however cant comment on the JVD since he has short thick neck Respiratory: normal vascular breathing on auscultation without any wheezes, stridor, rhonchi, exam limited due to morbid obesity GI: Abdomen soft, nontender, nondistended, normoactive bowel sounds present all 4 quadrants, Neuro: intact cranial nerves motor and sensory and cerebellar/coordination function without any focal neurological deficit Behavior: Appropriate and cooperative Extremities: Adequate palpable pulses,with redness and tenderness at the right heel side, wound covered with eschar/scab? no oozing noticed. distal pulses appreciated but feeble. mild bilateral trace edema, and shiny skin of both legs correlating with diabetic neuropathy Data 02/10/25 14:02 02/10/25 14:02 Micro: Microbiology 02/10/25 15:13 Blood Culture - Preliminary Blood SPECIMEN COLLECTED 02/10/25 15:12 Blood Culture - Preliminary Blood SPECIMEN COLLECTED A&P Assessment and plan 1. Chronic ulcer of right heel limited to breakdown of skin: Patient has been following with the wound care and podiatry as per the previous retrospective notes To start the patient on vancomycin and Zosyn Inflammatory markers CRP and ESR Blood cultures to follow Orthopedic/podiatry consult Wound care 2. Stroke: To resume home medication after reconciliation Patient on Plavix, I cannot find statins or aspirin in his home medication ( the pt explained that he has been on statins previously but after using it caused increased burning sensation of his feet and legs therefore was discontinued) cont plavix OT/PT 3. CKD (chronic kidney disease): Patient having mild DANILO Underlying infectious versus prerenal related to dehydration Continue adequate hydration but avoid over hydration since the pt reported having h/o congestive HF? echo reviewed, EF more or less in the range of 55-60% fu renal parameters, but if not improving then work up for DANILO to be done 4. Carotid artery stenosis with cerebral infarction: Home medication reconciliation and to continue on Plavix 5. Hypothyroidism due to amiodarone: Patient on levothyroxine 100 mcg as per home medication review and to continue after reconciliation high TSH, not having active hypothyroid symptoms fu with T3 and T4 6. Sleep apnea: Oxygen therapy as per protocol and NIV at night 7. Atrial fibrillation with controlled ventricular rate: To resume home medication after reconciliation Patient on amiodarone and metoprolol i did not find any anticoagulant like eliquis or doacs in his home meds, to further inquire from , since the pt is not aware about it and the daughter at bedside was also not sure of it retrospectively the patient had hb drop in july and also hip fracture, at that point his anticoagulation with xarelto was held. He is a Jehovas witness and therefore wont accept any blood transfusion or products. cont on plavix meanwhile. 8. Diabetes mellitus: Patient on insulin at home Continue sliding scale with monitoring accordingly 9. Peripheral arterial disease: Continue Plavix If the patient returns status then to reconcile and to add accordingly 10. GERD (gastroesophageal reflux disease): PPI scheduled: And Maalox as needed PDMP PDMP Reviewed: Not Reviewed Attestations Medical Necessity Statement*: Andrés Dumont's hospital stay will require greater than 2 midnights for management of right foot osteomyelitis versus cellulitis? Time Spent in Patient Care: 16 - 35 minutes (>than 50% of time spent in counselling and/or direct pt care on unit). Other Attestations: Patient condition has been discussed at length with the patient/family, I have independently reviewed the chart labs imaging/diagnostics/EKG. the goals of care and code status with the patient/family/NOK/legal outside industrial sales representative, and documented accordingly. The management has been done according to the current clinical condition with respect to patient goals of care and based on recommendations/guidelines. The patient/family has been informed about the current condition and further plan of care. Agreed with the plan of care and understood without any language barrier. Every effort was made to ensure accuracy of certified prosthetist. Any obvious errors or omissions should be clarified with the author of the document. Coding Level of Care Code 30477 Diagnoses Chronic ulcer of right heel limited to breakdown of skin L97.411 Stroke I63.9 CKD (chronic kidney disease) N18.9 Carotid artery stenosis with cerebral infarction I63.239 Hypothyroidism due to amiodarone T46.2X1A; E03.2 Sleep apnea G47.30 Atrial fibrillation with controlled ventricular rate I48.91 Diabetes mellitus E11.9 Peripheral arterial disease I73.9 GERD (gastroesophageal reflux disease) K21.9
--- NOTE | 2025-02-10 18:17 | PHA.VACGOAL ---
Vancomycin Goal - Goal Vancomycin Goal:: 10-15 mg/L Vancomycin Indication:: SSTI - Therapy Current therapy:: Pip/Tazo Day of therpy:: Day []of [] . Actual body weight (kg): 252 lb - Data Labs: WBC 16.36 10^3/uL (3.29-11.43) H 02/10/25 14:02 RBC 3.36 10^6/uL (3.85-5.65) L 02/10/25 14:02 Hgb 8.90 g/dL (11.27-16.99) L 02/10/25 14:02 Hct 29.8 % (37-53) L 02/10/25 14:02 MCV 88.7 fl (82-101) 02/10/25 14:02 MCH 26.5 pg (27-33) L 02/10/25 14:02 MCHC 29.9 g/dL (30-55) L 02/10/25 14:02 RDW 16.8 % (12.1-15.1) H 02/10/25 14:02 Sodium 137 mmol/L (136-145) 02/10/25 14:02 Potassium 2.9 mmol/L (3.5-5.1) L 02/10/25 14:02 Chloride 94 mmol/L (98-107) L 02/10/25 14:02 Carbon Dioxide 33 mmol/L (22-29) H 02/10/25 14:02 Anion Gap 12.9 (5-19) 02/10/25 14:02 BUN 41 mg/dL (8-23) H 02/10/25 14:02 Creatinine 2.0 mg/dL (0.7-1.2) H 02/10/25 14:02 GFR Calculation Not Reportable 02/10/25 14:02 Last dialysis session:: N/A Drug administration history:: Medications Discontinued Medications Vancomycin HCl 1,000 mg/ (Sodium Chloride) 250 mls @ 250 mls/hr IV ONCE ONE; Protocol Stop: 02/10/25 15:59 Last Admin: 02/10/25 18:10 Dose: Infused Treatment plan:: new consult Regimen:: PATIENT WAS GIVEN 1000 MG LOADING DOSE IN ER. STARTING MAINTENANCE DOSE OF 750 MG Q12H TO START AT 0400 ON 02/11/25. WILL CONTINUE TO MONITOR DAILY AND PLAN TO OBTAIN TROUGH PRIOR TO 4TH DOSE.
[2025-02-10] MEDS: piperacillin-tazobactam 3.375 GM in sodium chloride 0.9% (plus) 50 ML IV (18:45)
[2025-02-10 19:01] LABS: CRP High Sensitivity Cardiac 22.210 mg/dL (0.0-0.3)
[2025-02-10 20:21] LABS: Anion Gap 16.1 (5-19); Blood Urea Nitrogen 43 mg/dL (8-23); Calcium 8.1 mg/dL (8.5-10.5); Carbon Dioxide 27 mmol/L (22-29); Chloride 98 mmol/L (98-107); Creatinine Clr Calc Pharmacy 40.9209; Glucose 150 mg/dL (65-115); Osmolality Calculated 300 mOsm/kg (285-295); Potassium 3.1 mmol/L (3.5-5.1); Sodium 138 mmol/L (136-145)
[2025-02-10 20:44] LABS: Free T4 Free Thyroxine 0.92 ng/dL (0.82-1.77)
[2025-02-10 20:47] LABS: MRSA PCR OZH (swab) NOT DETECTED (Negative)
[2025-02-10] MEDS: HYDROcodone-acetaminophen 5-325 mg Tablet 1 TAB PO (23:10)
[2025-02-11] MEDS: piperacillin-tazobactam 3.375 GM in sodium chloride 0.9% (plus) 50 ML IV ×3 (03:29→17:43)
[2025-02-11 04:00] VITALS: BP 112/6; PULSE 69; RESP 16; TEMP 36.6; O2SAT 99
[2025-02-11 04:08] LABS: Hematocrit 26.6 % (37-53); Hemoglobin 8.00 g/dL (11.27-16.99); Mean Corpuscular HGB Conc 30.1 g/dL (30-55); Mean Corpuscular Hemoglobin 26.1 pg (27-33); Mean Corpuscular Volume 86.6 fl (82-101); Nucleated Red Blood Cells % 0 %; Platelet Count 410 10^3/cmm (157-399); Red Blood Count 3.07 10^6/uL (3.85-5.65); White Blood Count 14.31 10^3/uL (3.29-11.43)
[2025-02-11 04:34] LABS: Alanine Aminotransferase 11 U/L (0-41); Albumin Level 2.7 g/dL (3.5-5.2); Alkaline Phosphatase 119 U/L (40-130); Anion Gap 11.1 (5-19); Aspartate Amino Transferase 15 U/L (0-40); Blood Urea Nitrogen 41 mg/dL (8-23); Calcium 8.4 mg/dL (8.5-10.5); Carbon Dioxide 31 mmol/L (22-29); Chloride 99 mmol/L (98-107); Globulin 3.5 g/dL (1.3-4.6); Glucose 115 mg/dL (65-115); Osmolality Calculated 297 mOsm/kg (285-295); Potassium 3.1 mmol/L (3.5-5.1); Sodium 138 mmol/L (136-145); Total Protein 6.2 g/dL (6.6-8.7)
[2025-02-11 05:26] VITALS: BP 122/57; PULSE 66
[2025-02-11] MEDS: DAPAGLIFLOZIN 5 MG TABLET PO (05:28)
[2025-02-11 07:54] VITALS: BP 136/65; PULSE 69; RESP 18; TEMP 36.4; O2SAT 100
[2025-02-11] MEDS: HYDROcodone-acetaminophen 5-325 mg Tablet 1 TAB PO ×2 (10:48→19:32)
--- NOTE | 2025-02-11 11:13 | P.PN_ITS ---
Subjective 2 Subjective: He states he is doing so-so. He had last been seen in wound care several days ago. Denies fever or chills. Vitals/I&O/Wt Last Vital Signs Temp 97.6 F 02/11/25 07:54 Pulse 69 02/11/25 07:54 Resp 18 02/11/25 07:54 BP 136/65 02/11/25 07:54 Pulse Ox 100 02/11/25 07:54 O2 Del Method Nasal Cannula 02/11/25 07:54 O2 Flow Rate 2 02/11/25 08:00 02/10/25 02/11/25 02/11/25 22:59 06:59 14:59 Intake Total 250 / 250 405 / 655 530 / 530 Balance 250 / 250 405 / 655 530 / 530 Weight last 48 hrs Weight 120.202 kg Weight 120.928 kg Weight 114.305 kg Physical Exam 2 Const: COMMON NORMALS: patient oriented x3 and alert GENERAL APPEARANCE: c ooperative ORIENTATION/CONSCIOUSNESS: Yes awake HENMT: COMMON NORMALS: oropharynx normal Neck/C-Spine: COMMON NORMALS: no JVD Resp: COMMON NORMALS: normal respiratory effort and clear to auscultation bilaterally AUSCULTATION: clear to auscultation bilaterally Cardio: COMMON NORMALS: no JVD, regular rhythm, S1 normal heart sound present, S2 normal heart sound present and No murmurs present (Cardio) RHYTHM: regular rhythm HEART SOUNDS: S1 normal heart sound present and S2 normal heart sound present GI: COMMON NORMALS: Normal to inspection, nondistended, normoactive bowel sounds present, Soft to palpation and non-tender PALPATION: Yes Soft to palpation Neuro: COMMON NORMALS: patient oriented x3 and moves all extremities S ENSORIUM/ORIENTATION: Yes alert Skin: NARRATIVE SKIN EXAM: Right heel large ulceration with necrotic base Data 02/11/25 03:54 02/11/25 03:54 Micro: Microbiology 02/10/25 15:13 Blood Culture - Preliminary Blood SPECIMEN COLLECTED 02/10/25 15:12 Blood Culture - Preliminary Blood SPECIMEN COLLECTED A&P Assessment and plan 1. Chronic ulcer of right heel limited to breakdown of skin: Possible abscess on soft tissue ultrasound. Foot x-ray without obvious advanced osteomyelitis. Wound infection of right heel with large ulceration with necrotic base. Subcutaneous tissue exposure, tendon exposure. Reviewed vitals, CBC. Afebrile but with leukocytosis 14.3 which is a slight improvement from yesterday. ESR elevated 44, CRP 22.21. Discussed with orthopedic surgeon, pending assessment. Podiatry is not available until the . Ultrasound soft tissue area of concern FINDINGS: Ultrasound soft tissue of concern RIGHT posterior heel. Diffuse marked skin thickening compatible with cellulitis. Complex collection with dense echogenic material suspicious for abscess or hematoma. This is presumably abscess given clinical history. This does not appear easily drainable due to thick internal echogenic contents. Internal component measures approximately 2.1 x 1.1 x 4.0 cm Continue vancomycin and Zosyn, monitor for risk of DANILO with antibiotic combination. Reassess renal function, chemistry. Inflammatory markers CRP and ESR Blood cultures, reviewed Wound care. Add wound care orders with wet-to-dry. 2. CKD (chronic kidney disease): Patient having mild DANILO on CKD, Cr 2 Underlying infectious versus prerenal related to dehydration Continue adequate hydration but avoid over hydration since the pt reported having h/o congestive HF? echo reviewed, EF more or less in the range of 55-60% fu renal parameters, but if not improving then work up for DANILO to be done 3. Stroke: History of. Continue on Plavix, prior allergy to statin. 4. 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 Sleep apnea: Oxygen therapy as per protocol and NIV at night 7. Atrial fibrillation with controlled ventricular rate: To resume home medication after reconciliation Patient on amiodarone and metoprolol Hold anticoagulation with xarelto was held. He is a Jehovas witness and therefore wont accept any blood transfusion or products. cont on plavix meanwhile. 8. Diabetes mellitus: Patient on insulin at home Continue sliding scale with monitoring accordingly 9. Peripheral arterial disease: Continue Plavix 10. GERD (gastroesophageal reflux disease): PPI. And Maalox as needed PDMP PDMP Reviewed: Not Reviewed Attestations 2 Medical Necessity Statement*: Continue admission for assessment management of wound infection of right heel with necrosis, possible abscess. and High MDM includes amount and/or complexity of data reviewed/ordered [ resulted lab(s)/test(s) and other healthcare professional discussion] and described risk of complication, morbidity or mortality of management as documented Diagnoses 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
--- NOTE | 2025-02-11 12:01 | PC.CHAP ---
Pastoral Care Encounter/Spiritual Assessment Type of Contact [x] Declined microsoft access developer visit [] Patient/Family/Request visit [] Outpatient visit [] Follow-up visit [] Physician referral [] Code/Alert [x] Routine visit [] Staff referral [] Actively dying [] Patient sleeping [] Family support [] [] Out of room [] Palliative care [] [] Receiving care in room [] Pre-surgical visit [] Trauma [] Long length of stay [] ICU visit [] Other: Relational/Emotional Strength [x] Patient feels connected with others/family/visitors/staff [] Distress [] Loneliness/isolation [] Abandonment Spirituality of Patient [x] Person of Marta [x] Attends Spiritism of their Marta [x] Believes in Prayer [x] Reads Bible or Protestant materials [] There are Spiritual issues to be addressed Senior Systems Administrator Interventions [x] Prayer [x] Active listening [x] Non-anxious presence [] Spiritual/emotional support [] Crisis/trauma care [] Spiritual counseling [] Bereavement support [] Provided bereavement packet [] Provided Bible/devotional materials [] Provided toy/stuffed animal, coloring book to patient or family member [] Provided Communion [] Anointing/[place] [] Salvation [] Completed spiritual assessment [] Other: Impact on Illness or Injury [] Angry [] Fearful [] Anxious [] Often cries [] Exhaustion [] Unable to work [] Unable to attend evangelical [] Unable to walk/stand [] Unable to read [] Unable to drive [] Unable to eat/drink [] Unable to sleep [] Unable to be with family [] Patient intubated [] Other: Summary Jehovah Witness. Refused visit at first. do to his belief the got to talking about other things Time spent with patient 40 Min
--- NOTE | 2025-02-11 12:44 | PM.CONSULT ---
Providers/Reason For Consult Consulting Physician/Specialty*: Hospitalist Reason for Consult*: Diabetic foot ulcer Attending Physician: Wil Lopez Primary Care Provider: Humberto Griggs DO History of Present Illness History of Present Illness Andrés Dumont is a 79 year old male with history of right heel ulcer was been treated by in wound clinic. At this point patient states that the wound is actually getting worse. Review of Systems Const: Denies: fever(s) or chills Card: Denies: chest pain Resp: Denies: dyspnea GI: Denies: abdominal pain : Denies: dysuria, urinary frequency or urinary urgency Musc: Denies: neck pain or back pain Skin/Breast: Denies: rash Medications/Allergies Home Medications ?Medication ?Instructions ?Recorded ?Confirmed ?Last Taken ?Type pantoprazole 40 mg tablet,delayed 40 mg PO DAILY 11/19/20 02/11/25 02/10/25 06:00 History release multivitamin (Multiple Vitamins 1 tab PO DAILY 03/28/24 02/11/25 02/10/25 06:00 History tablet) albuterol sulfate 90 mcg/actuation 1 puff inhalation .Q4H PRN 07/23/24 02/11/25 Unknown History aerosol inhaler Shortness Of Breath acetaminophen 325 mg capsule 650 mg PO QID PRN Pain 12/26/24 02/11/25 02/08/25 17:35 History amiodarone 200 mg tablet 200 mg PO DAILY 12/26/24 02/11/25 02/10/25 06:00 History sertraline 100 mg tablet 100 mg PO BEDTIME 12/26/24 02/11/25 02/09/25 15:00 History bisacodyl 10 mg rectal suppository 10 mg ID DAILY PRN constipation 12/27/24 02/11/25 Unknown History budesonide 32 mcg/actuation nasal 1 spray intranasal BID 12/27/24 02/11/25 02/10/25 06:00 History spray insulin lispro 100 unit/mL 12 unit SUBCUT TID type 2 diabetes 12/27/24 02/11/25 02/10/25 11:00 History subcutaneous pen (Humalog KwikPen (U-100) Insulin) rivaroxaban 20 mg tablet (Xarelto) 20 mg PO QPM 12/27/24 02/11/2525 17:00 History rosuvastatin 40 mg tablet 40 mg PO BEDTIME 12/27/24 02/11/25 02/09/25 15:00 History sodium phosphates 19 gram-7 118 ml ID DAILY PRN Constipation 12/27/24 02/11/25 Unknown History gram/118 mL enema (Fleet Enema) tamsulosin 0.4 mg capsule (Flomax) 0.4 mg PO BEDTIME 12/27/24 02/11/25 02/09/25 15:00 History cetirizine 5 mg tablet (Allergy 5 mg PO QPM PRN Allergy Symptoms 12/29/24 02/11/25 12/26/24 19:40 Rx Relief (cetirizine)) #1 tab hydrocodone 5 mg-acetaminophen 325 1 tab PO Q6H PRN Pain, Moderate #1 12/29/24 02/11/25 02/10/25 06:10 Rx mg tablet tab melatonin 3 mg tablet 3 mg PO BEDTIME PRN Sleep #1 tab 12/29/24 02/11/25 02/08/25 17:35 Rx lidocaine HCl 2 % mucosal jelly See Rx Instructions .Route 01/13/25 02/11/25 02/07/25 07:40 History .COMPLEX PRN Pain polyethylene glycol 3350 17 17 g PO DAILY 01/13/25 02/11/25 02/10/25 06:00 History gram/dose oral powder (Miralax) bumetanide 2 mg tablet 2 mg PO DAILY #30 tabs 01/17/25 02/11/25 02/10/25 06:00 Rx clopidogrel 75 mg tablet 75 mg PO DAILY #30 tabs 01/17/25 02/11/25 02/10/25 06:00 Rx dapagliflozin propanediol 5 mg 5 mg PO DAILY #30 tabs 01/17/25 02/11/25 02/10/25 06:00 Rx tablet insulin glargine 100 unit/mL (3 40 unit (0.4 mL) SUBCUT BEDTIME 01/17/25 02/11/25 02/10/25 20:00 Rx mL) subcutaneous pen (Lantus #0.01 mL Solostar U-100 Insulin) ipratropium 0.5 mg-albuterol 3 mg 3 ml inhalation Q6H PRN Shortness 01/17/25 02/11/25 Unknown Rx (2.5 mg base)/3 mL nebulization Of Breath #90 mL soln levothyroxine 100 mcg tablet 100 mcg PO QAM #30 tabs 01/17/25 02/11/25 02/10/25 06:00 Rx (Levoxyl) magnesium oxide 400 mg (241.3 mg 400 mg PO BID #60 tabs 01/17/25 02/11/25 02/10/25 06:00 Rx magnesium) tablet metoprolol tartrate 25 mg tablet 25 mg PO BID@0900,2100 #60 tabs 01/17/25 02/11/25 02/10/25 06:00 Rx ursodiol 300 mg capsule 300 mg PO 2XD #60 caps 01/17/25 02/11/25 02/10/25 06:00 Rx Lactobacillus rhamnosus GG 10 1 cap PO BID 02/11/25 02/11/25 02/10/25 06:00 History billion cell capsule (Culturelle) cephalexin 500 mg capsule 500 mg PO QID 02/11/25 02/11/25 02/10/25 12:00 History metolazone 2.5 mg tablet See Rx Instructions .Route .COMPLEX 02/11/25 02/11/25 Unknown History potassium chloride 10 mEq 40 meq PO DAILY 02/11/25 02/11/25 02/10/25 06:00 History capsule,extended release Allergies Allergy/AdvReac Type Severity Reaction Status Date / Time lovastatin Allergy RASH Verified 01/02/25 13:58 blood Allergy Unknown Trisha's Uncoded 01/02/25 13:58 witness Current Medications Generic Name Dose Route Start Last Admin Trade Name Freq PRN Reason Stop Dose Admin Hydrocodone Bitart/Acetaminophen 1 tab 02/10/25 16:39 02/11/25 10:48 Hydrocodone-Acetaminophen 5-325 Mg Tablet PO 1 tab Q4H PRN Administration MODERATE TO SEVERE PAIN Amiodarone HCl 200 mg 02/11/25 05:00 02/11/25 05:28 Amiodarone 200 Mg Tablet PO 200 mg DAILY SAHIL Administration Atorvastatin Calcium 80 mg 02/10/25 21:00 02/10/25 23:09 Atorvastatin 40 Mg Tablet PO 80 mg BEDTIME SAHIL Administration Bumetanide 2 mg 02/11/25 05:00 02/11/25 05:27 Bumetanide 1 Mg Tablet PO 2 mg DAILY SAHIL Administration Clopidogrel Bisulfate 75 mg 02/11/25 05:00 02/11/25 05:27 Clopidogrel 75 Mg Tablet PO 75 mg DAILY SAHIL Administration Vancomycin HCl 750 mg/ Sodium 250 mls @ 250 mls/hr 02/11/25 04:00 02/11/25 06:38 Chloride IV Infused Q12H SAHIL Infusion Piperacillin Sod/Tazobactam 50 mls @ 12.5 mls/hr 02/10/25 18:30 02/11/25 10:49 Sod 3.375 gm/ Sodium Chloride IV 12.5 mls/hr Q8H SAHIL Administration Insulin Human Lispro 0 unit 02/10/25 21:00 02/11/25 07:53 Insulin Lispro 100 Unit/1 Ml SUBCUT Not Given WM&BEDTIME SAHIL Protocol Levothyroxine Sodium 100 mcg 02/11/25 05:00 02/11/25 05:28 Levothyroxine 100 Mcg Tablet PO 100 mcg QAM SAHIL Administration Pantoprazole Sodium 40 mg 02/10/25 16:45 02/10/25 17:40 Pantoprazole 40 Mg Sdv IVP 40 mg Q24H SAHIL Administration Rivaroxaban 20 mg 02/10/25 20:21 02/10/25 23:08 Rivaroxaban 10 Mg Tablet PO 20 mg QPM SAHIL Administration Senna 17.2 mg 02/10/25 21:00 02/10/25 23:10 Sennosides 8.6 Mg Tablet PO 17.2 mg BEDTIME SAHIL Administration Sertraline HCl 100 mg 02/10/25 21:00 02/10/25 23:10 Sertraline 100 Mg Tablet PO 100 mg BEDTIME SAHIL Administration Tamsulosin HCl 0.4 mg 02/10/25 21:00 02/10/25 23:11 Tamsulosin 0.4 Mg Capsule PO 0.4 mg BEDTIME SAHIL Administration PFSH Acute PFSH: Medical History (Updated 02/10/25 @ 17:55 by Mitzy Marquis MD) Obesity (BMI 30-39.9) Sleep apnea Hypertension Anticoagulation adequate with anticoagulant therapy Atrial fibrillation with controlled ventricular rate BPH (benign prostatic hyperplasia) Mass of right kidney Diabetes mellitus Acute cholecystitis Callus of foot Chronic ulcer of great toe of right foot, limited to breakdown of skin [place] Peripheral arterial disease Diabetic peripheral neuropathy associated with type 2 diabetes mellitus Diabetes mellitus GERD (gastroesophageal reflux disease) Venous insufficiency Prostatitis, acute Acute cystitis with hematuria Surgical History Hx of cholecystectomy Status post right inguinal hernia repair Status post colonoscopy (12/13/20) descending colon polyp H/O esophagogastroduodenoscopy (12/13/20) normal Hx of tonsillectomy Family History Mother , AT AGE 73 Cancer COLON Father , AT AGE 50 Diabetes Social History Smoking and tobacco/nicotine status: former use of tobacco/nicotine (quit in 1974) Alcohol intake: current Alcohol intake frequency: holidays/special occasions only Marital status: Current occupational status: retired Vitals/I&O/Wt Last Vital Signs Temp 97.6 F 02/11/25 07:54 Pulse 69 02/11/25 07:54 Resp 18 02/11/25 07:54 BP 136/65 02/11/25 07:54 Pulse Ox 100 02/11/25 07:54 O2 Del Method Nasal Cannula 02/11/25 07:54 O2 Flow Rate 2 02/11/25 08:00 02/10/25 02/11/25 02/11/25 22:59 06:59 14:59 Intake Total 250 / 250 405 / 655 530 / 530 Balance 250 / 250 405 / 655 530 / 530 Weight last 48 hrs Weight 265 lb Weight 266 lb 9.6 oz Weight 252 lb Physical Exam Narrative: Wound was evaluated exposed bone which looks necrotic. Some erythema around it. Data 02/11/25 03:54 02/11/25 03:54 Micro: Microbiology 02/10/25 15:13 Blood Culture - Preliminary Blood SPECIMEN COLLECTED 02/10/25 15:12 Blood Culture - Preliminary Blood SPECIMEN COLLECTED A&P Assessment and plan 1. Diabetes mellitus: Patient has a diabetic foot ulcer on his heel with exposed bone. Discussed amputation with him. Will await podiatry's return on Thursday to evaluate to see if this can be debrided further. Versus amputation. Continue antibiotics at this point. PDMP PDMP Reviewed: Not Reviewed Consult Attestations Medical Necessity Statement: Per primary service Coding Level of Care Code Acute Code for Chg Fwd Diagnoses Diabetes mellitus E11.9
[2025-02-11 12:49] VITALS: BP 118/62; PULSE 93; RESP 16; TEMP 36.6; O2SAT 100
--- NOTE | 2025-02-11 12:49 | PC.OT ---
Evaluation on hold until after surgery.
[2025-02-11] MEDS: pantoprazole 40 mg SDV IVP (15:53)
[2025-02-11 16:22] VITALS: BP 154/68; PULSE 77; RESP 16; TEMP 36.5; O2SAT 100
[2025-02-11 19:59] VITALS: BP 154/67; PULSE 86; RESP 17; TEMP 36.6; O2SAT 91
[2025-02-12] VITALS: BP 169/71; PULSE 75; RESP 18; TEMP 36.7; O2SAT 98
[2025-02-12] MEDS: HYDROcodone-acetaminophen 5-325 mg Tablet 1 TAB PO ×2 (01:03→12:25)
[2025-02-12] MEDS: piperacillin-tazobactam 3.375 GM in sodium chloride 0.9% (plus) 50 ML IV ×2 (01:30→11:50)
[2025-02-12 04:00] VITALS: BP 138/79; PULSE 75; RESP 18; TEMP 37; O2SAT 98
[2025-02-12 04:29] LABS: Hematocrit 25.6 % (37-53); Hemoglobin 7.70 g/dL (11.27-16.99); Mean Corpuscular HGB Conc 30.1 g/dL (30-55); Mean Corpuscular Hemoglobin 25.9 pg (27-33); Mean Corpuscular Volume 86.2 fl (82-101); Nucleated Red Blood Cells % 0 %; Platelet Count 416 10^3/cmm (157-399); Red Blood Count 2.97 10^6/uL (3.85-5.65); White Blood Count 13.06 10^3/uL (3.29-11.43)
[2025-02-12 04:57] LABS: Anion Gap 11.7 (5-19); Blood Urea Nitrogen 40 mg/dL (8-23); Calcium 8.3 mg/dL (8.5-10.5); Carbon Dioxide 32 mmol/L (22-29); Chloride 97 mmol/L (98-107); Glucose 112 mg/dL (65-115); Osmolality Calculated 297 mOsm/kg (285-295); Sodium 138 mmol/L (136-145)
[2025-02-12 05:11] LABS: Potassium 2.7 mmol/L (3.5-5.1)
[2025-02-12] MEDS: DAPAGLIFLOZIN 5 MG TABLET PO (05:36)
[2025-02-12 05:55] LABS: Magnesium 1.8 mg/dL (1.7-2.3)
[2025-02-12] MEDS: potassium chloride premix 100 ML 25 MEQ IV (05:56)
[2025-02-12 06:00] VITALS: BMI 34.0
[2025-02-12 07:34] VITALS: BP 148/78; PULSE 74; RESP 18; TEMP 36.4; O2SAT 100
[2025-02-12] MEDS: magnesium sulfate premix 1 GM/100 ML PIGGYBACK IV (08:13)
[2025-02-12 11:40] VITALS: BP 165/73; PULSE 84; RESP 18; TEMP 36.5; O2SAT 97
--- NOTE | 2025-02-12 11:45 | PM.TDS ---
Transfer Summary Providers Date of Admission: 02/10/25 17:51 Date of Discharge/Transfer: 02/12/25 Attending Provider at Admission: Mitzy Marquis MD Attending Provider at Transfer: Wil Lopez Primary Care Provider: Humberto Griggs DO Transfer Plans: Anticipated date of transfer: 02/12/25. Diagnoses at Discharge Discharge Diagnosis 1. 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 CKD (chronic kidney disease): 3. Stroke: 4. Carotid artery stenosis with cerebral infarction: 5. Hypothyroidism due to amiodarone: 6. Sleep apnea: 7. Atrial fibrillation with controlled ventricular rate: 8. Diabetes mellitus: 9. Peripheral arterial disease: 10. GERD (gastroesophageal reflux disease): Reason for Visit Reason for Visit foot wound Brief History: Andrés Dumont is a 79 year old male with a history of atrial fibrillation, cerebrovascular accident, chronic kidney disease, T2DM insulin dependent, hypertension, and sleep apnea presented to ER with right heel wound that has been there for several months and has been worsening recently from the last 3 days approx with increase in pain and redness distally to the calf muscle. there were no reported fevers or chills or any SOB. no oozing from the wound. no chest pain, chest pressure, abd pain or any nausea or vomiting. no change in his urinary or bowel habits. no wt loss. rest of the review of system is unremarkable OF NOTE: PATIENT IS A JEHOVAS WITNESS, NO BLOOD PRODUCTS OR PRBC TRANSFUSIONS IF DROP IN HB THEN FOR IRON SUPPLEMENTS OR IRON INFUSIONS ACCEPTABLE Hospital Course Hospital Course Right foot x-ray without obvious advanced osteomyelitis, right soft tissue ultrasound with suspected abscess in the area of concern 2.1 x 1.5 x 4 cm internal component, hematoma is an additional consideration. He was started on empiric antibiotic coverage with Zosyn and vancomycin. Continued on wound care with wet-to-dry for the deep ulcer with some necrotic base and Achilles tendon exposure. Was assessed by orthopedic surgery who discussed options of amputation with him, although he has not felt ready for this. Orthopedic surgeon is unable to deal with foot infection, and no podiatry available until 02/19. Due to this transfer has been discussed and is being arranged to [facility] where he has been kindly accepted for additional evaluation and management by podiatry as discussed with accepting team including triple valve mechanic and hospitalist. He has been off anticoagulation with Xarelto with last dose on evening of 02/10. Continues on amiodarone, metoprolol for atrial fibrillation. Renal function remains at baseline, creatinine 2. Has required potassium supplementation during hospitalization. Continued on long acting and sliding scale insulin with consistent ARB diet for diabetes. Levothyroxine for hypothyroidism. Nightly CPAP for sleep apnea. Reported history of PAD, but arterial duplex from December 2024 did not show stenosis or occlusion. LURDSE 1.1 Last echocardiogram in December normal ejection fraction, no RWMA. Stress test in April 2023 with normal myocardial perfusion imaging without evidence of ischemia. With history of stroke, on Plavix, intolerant of statin. OF NOTE: PATIENT IS A JEHOVAS WITNESS, NO BLOOD PRODUCTS OR PRBC TRANSFUSIONS IF DROP IN HB THEN FOR IRON SUPPLEMENTS OR IRON INFUSIONS ACCEPTABLE Physical Exam Const: COMMON NORMALS: patient oriented x3 and alert GENERAL APPEARANCE: cooperative ORIENTATION/CONSCIOUSNESS: Yes awake HENMT: COMMON NORMALS: oropharynx normal Neck/C-Spine: COMMON NORMALS: no JVD Resp: COMMON NORMALS: normal respiratory effort and clear to auscultation bilaterally AUSCULTATION: clear to auscultation bilaterally Cardio: COMMON NORMALS: no JVD, regular rhythm, S1 normal heart sound present, S2 normal heart sound present and No murmurs present (Cardio) RHYTHM: regular rhythm HEART SOUNDS: S1 normal heart sound present and S2 normal heart sound present GI: COMMON NORMALS: Normal to inspection, nondistended, normoactive bowel sounds present, Soft to palpation and non-tender PALPATION: Yes Soft to palpation Neuro: COMMON NORMALS: patient oriented x3 and moves all extremities SENSORIUM/ORIENTATION: Yes alert Skin: NARRATIVE SKIN EXAM: Right heel large ulceration with necrotic base, Achilles tendon exposure TS Data Studies Completed and Pending Pending at discharge Category Date Time Status Basic Metabolic Panel AM LABS Lab 02/13/25 04:00 Ordered Basic Metabolic Panel AM LABS Lab 02/14/25 04:00 Ordered Blood Culture Stat Lab 02/10/25 15:13 Results Complete Blood Count w/Auto AM LABS Lab 02/13/25 04:00 Ordered Complete Blood Count w/Auto AM LABS Lab 02/14/25 04:00 Ordered Vancomycin Trough Timed Lab 02/12/25 15:00 Ordered Completed Studies During Hospitalization Category Date Time Status XR foot RT min 3V* 33030 Stat Exams 02/10/25 16:37 Completed US soft tissue and or extremity [US soft tissue/ Ultrasound 02/10/25 15:00 Completed extremity 30434] Stat Laboratory Last Values WBC 13.06 10^3/uL (3.29-11.43) H 02/12/25 03:45 RBC 2.97 10^6/uL (3.85-5.65) L 02/12/25 03:45 Hgb 7.70 g/dL (11.27-16.99) L 02/12/25 03:45 Hct 25.6 % (37-53) L 02/12/25 03:45 MCV 86.2 fl (82-101) 02/12/25 03:45 MCH 25.9 pg (27-33) L 02/12/25 03:45 MCHC 30.1 g/dL (30-55) 02/12/25 03:45 RDW 16.9 % (12.1-15.1) H 02/12/25 03:45 Plt Count 416 10^3/cmm (157-399) H 02/12/25 03:45 MPV 8.7 fL (7.4-10.4) 02/12/25 03:45 Neut % (Auto) 79.0 % 02/12/25 03:45 Lymph % (Auto) 7.7 % 02/12/25 03:45 [place] % (Auto) 8.8 % 02/12/25 03:45 Eos % (Auto) 3.8 % 02/12/25 03:45 Baso % (Auto) 0.2 % 02/12/25 03:45 Neut # (Auto) 10.32 10^3/uL (1.8-7.7) H 02/12/25 03:45 Lymph # (Auto) 1.0 10^3/uL (0.8-4.8) 02/12/25 03:45 [place] # (Auto) 1.2 10^3/uL (0.2-0.9) H 02/12/25 03:45 Eos # (Auto) 0.5 10^3/uL (0.0-0.8) 02/12/25 03:45 Baso # (Auto) 0.0 10^3/uL (0.0-0.1) 02/12/25 03:45 Nucleated RBC % (auto) 0 % 02/12/25 03:45 Nucleated RBCs # 0.0 /100WBC 02/12/25 03:45 ESR 44 mm/hr (0-10) H 02/10/25 14:02 Sodium 138 mmol/L (136-145) 02/12/25 03:45 Potassium 2.7 mmol/L (3.5-5.1) L* 02/12/25 03:45 Chloride 97 mmol/L (98-107) L 02/12/25 03:45 Carbon Dioxide 32 mmol/L (22-29) H 02/12/25 03:45 Anion Gap 11.7 (5-19) 02/12/25 03:45 BUN 40 mg/dL (8-23) H 02/12/25 03:45 Creatinine 2.0 mg/dL (0.7-1.2) H 02/12/25 03:45 GFR Calculation Not Reportable 02/12/25 03:45 Glucose 112 mg/dL (65-115) 02/12/25 03:45 POC Glucose 248 mg/dL (70-110) H 02/12/25 10:34 Calculated Osmolality 297 mOsm/kg (285-295) H 02/12/25 03:45 Lactic Acid 1.5 mmol/L (0.5-2.2) 02/10/25 14:02 Calcium 8.3 mg/dL (8.5-10.5) L 02/12/25 03:45 Phosphorus 3.4 mg/dL (2.5-4.5) 02/10/25 14:02 Magnesium 1.8 mg/dL (1.7-2.3) 02/12/25 03:45 Total Bilirubin 0.6 mg/dL (0.15-1.2) 02/11/25 03:54 AST 15 U/L (0-40) 02/11/25 03:54 ALT 11 U/L (0-41) 02/11/25 03:54 Alkaline Phosphatase 119 U/L (40-130) 02/11/25 03:54 C-React Prot High Sens 22.210 mg/dL (0.0-0.3) H 02/10/25 14:02 Total Protein 6.2 g/dL (6.6-8.7) L 02/11/25 03:54 Albumin 2.7 g/dL (3.5-5.2) L 02/11/25 03:54 Globulin 3.5 g/dL (1.3-4.6) 02/11/25 03:54 TSH 12.63 uIU/mL (0.27-4.20) H 02/10/25 14:02 Free T4 0.92 ng/dL (0.82-1.77) 02/10/25 19:59 Free T3 1.5 PG/ML (2.0-4.4) L 02/10/25 19:59 Nasal MRSA (PCR) Not detected (Negative) 02/10/25 19:29 Radiology Impressions Soft Tissue Ultrasound 02/10/25 15:00 IMPRESSION: Suspected abscess in the area of concern given clinical history. This does not appear easily drainable with thick echogenic internal contents. Hematoma is an additional consideration Foot X-Ray 02/10/25 16:37 IMPRESSION: Soft tissue opacity abutting the posterior margin of the calcaneus of uncertain etiology and significance. No definite findings to suggest osteomyelitis. Recent Clincial Data Last Vital Signs Temp 97.7 F 02/12/25 11:40 Pulse 84 02/12/25 11:40 Resp 18 02/12/25 11:40 BP 165/73 02/12/25 11:40 Pulse Ox 97 02/12/25 11:40 O2 Del Method Nasal Cannula 02/12/25 11:40 O2 Flow Rate 2 02/12/25 00:00 Vital Signs Temp Pulse Resp BP Pulse Ox O2 Del Method O2 Flow Rate 02/12/25 11:40 97.7 F 84 18 165/73 97 Nasal Cannula 02/12/25 07:34 97.5 F L 74 18 148/78 100 Nasal Cannula 02/12/25 04:00 98.6 F 75 18 138/79 98 Nasal Cannula 02/12/25 00:00 98.1 F 75 18 169/71 98 Nasal Cannula 2 Intake & Output/Weight 02/10/25 02/11/25 02/12/25 02/13/25 06:59 06:59 06:59 06:59 Intake Total 655 / 655 1560 / 1560 550 / 550 Balance 655 / 655 1560 / 1560 550 / 550 Weight 120.202 kg 120.202 kg Vitals Last Vital Signs Temp 97.7 F 02/12/25 11:40 Pulse 84 02/12/25 11:40 Resp 18 02/12/25 11:40 BP 165/73 02/12/25 11:40 Pulse Ox 97 02/12/25 11:40 O2 Del Method Nasal Cannula 02/12/25 11:40 O2 Flow Rate 2 02/12/25 00:00 TS Medications Medications Acetaminophen (Acetaminophen 325 Mg Tablet) 650 mg PO Q6H PRN PRN Reason: Mild/Mod Pain Or Temp >/= 101 Hydrocodone Bitart/Acetaminophen (Hydrocodone-Acetaminophen 5-325 Mg Tablet) 1 tab PO Q4H PRN PRN Reason: MODERATE TO SEVERE PAIN Last Admin: 02/12/25 01:03 Dose: 1 tab Al Hydrox/Mg Hydrox/Simethicone (Hncz-Oko-Ruzpxtbiy-Lucille 30 Ml Udc) 15 ml PO Q6H PRN PRN Reason: INDIGESTION Amiodarone HCl (Amiodarone 200 Mg Tablet) 200 mg PO DAILY [facility] Last Admin: 02/12/25 05:35 Dose: 200 mg Atorvastatin Calcium (Atorvastatin 40 Mg Tablet) 80 mg PO BEDTIME SAHIL Last Admin: 02/11/25 21:22 Dose: 80 mg Bumetanide (Bumetanide 1 Mg Tablet) 2 mg PO DAILY [facility] Last Admin: 02/12/25 05:35 Dose: 2 mg Cetirizine HCl (Cetirizine 10 Mg Tablet) 5 mg PO QPM PRN PRN Reason: Allergy Symptoms Clopidogrel Bisulfate (Clopidogrel 75 Mg Tablet) 75 mg PO DAILY [facility] Last Admin: 02/12/25 05:35 Dose: 75 mg Glucagon (Glucagon 1 Mg/Ml Kit 1 Ml) 1 mg IM ONCE PRN; Protocol PRN Reason: Adult Acute Hypoglycemia Nursing Prot. Vancomycin HCl 750 mg/ Sodium (Chloride) 250 mls @ 250 mls/hr IV Q12H [facility] Last Infusion: 02/12/25 07:35 Dose: Infused Piperacillin Sod/Tazobactam (Sod 3.375 gm/ Sodium Chloride) 50 mls @ 12.5 mls/hr IV Q8H [facility] Last Infusion: 02/12/25 05:57 Dose: Infused Dextrose (D5w) 500 mls @ 0 mls/hr IV ONCE PRN; Protocol PRN Reason: Adult Acute Hypoglycemia Prot Dextrose (D10w) 125 mls @ 750 mls/hr IV PRN PRN; Protocol PRN Reason: Adult Acute Hypoglycemia Nursing Protocol Dextrose (D10w) 250 mls @ 1,000 mls/hr IV PRN PRN; Protocol PRN Reason: Adult Acute Hypoglycemia Nursing Protocol Insulin Human Lispro (Insulin Lispro 100 Unit/1 Ml) 0 unit SUBCUT WM&BEDTIME SAHIL; Protocol Last Admin: 02/12/25 07:27 Dose: Not Given Levothyroxine Sodium (Levothyroxine 100 Mcg Tablet) 100 mcg PO QAM SAHIL Last Admin: 02/12/25 05:35 Dose: 100 mcg Melatonin (Melatonin 3 Mg Tablet) 3 mg PO BEDTIME PRN PRN Reason: SLEEP Morphine Sulfate (Morphine 4 Mg/Ml Sdv 1 Ml) 2 mg IVP Q4H PRN PRN Reason: SEVERE PAIN Ondansetron HCl (Ondansetron 2 Mg/Ml Sdv 2 Ml) 4 mg IVP Q8H PRN PRN Reason: vomiting, or N/V if npo Pantoprazole Sodium (Pantoprazole 40 Mg Sdv) 40 mg IVP Q24H SAHIL Last Admin: 02/11/25 15:53 Dose: 40 mg Rivaroxaban (Rivaroxaban 10 Mg Tablet) 20 mg PO QPM SAHIL On Hold: 02/11/25 13:06 Last Admin: 02/10/25 23:08 Dose: 20 mg Senna (Sennosides 8.6 Mg Tablet) 17.2 mg PO BEDTIME SAHIL Last Admin: 02/11/25 21:22 Dose: 17.2 mg Sertraline HCl (Sertraline 100 Mg Tablet) 100 mg PO BEDTIME SAHIL Last Admin: 02/11/25 21:22 Dose: 100 mg Tamsulosin HCl (Tamsulosin 0.4 Mg Capsule) 0.4 mg PO BEDTIME SAHIL Last Admin: 02/11/25 21:22 Dose: 0.4 mg Discontinued Medications Heparin Sodium (Porcine) (Heparin 5,000 Unit/Ml Inj 1 Ml) 5,000 unit SUBCUT Q12H SAHIL Last Admin: 02/10/25 17:34 Dose: 5,000 unit Vancomycin HCl 1,000 mg/ (Sodium Chloride) 250 mls @ 250 mls/hr IV ONCE ONE; Protocol Stop: 02/10/25 15:59 Last Infusion: 02/10/25 18:10 Dose: Infused Lidocaine HCl 5 ml/ Potassium (Chloride) 105 mls @ 26.25 mls/hr IV ONCE ONE Stop: 02/10/25 19:17 Last Infusion: 02/11/25 02:10 Dose: Infused Potassium Chloride (K-El) 100 mls @ 25 mls/hr IV ONCE ONE Stop: 02/12/25 09:33 Last Admin: 02/12/25 05:56 Dose: 25 mls/hr Magnesium Sulfate/Dextrose (Magnesium Sulfate Premix) 1 gm in 100 mls @ 200 mls/hr IV ONCE ONE Stop: 02/12/25 08:18 Last Infusion: 02/12/25 09:00 Dose: Infused Potassium Chloride (Potassium Chloride Er 20 Meq Tablet) 40 meq PO ONCE ONE Stop: 02/10/25 20:38 Last Admin: 02/10/25 23:08 Dose: 40 meq Potassium Chloride (Potassium Chloride Er 20 Meq Tablet) 40 meq PO ONCE ONE Stop: 02/12/25 01:56 Last Admin: 02/12/25 02:15 Dose: 40 meq Potassium Chloride (Potassium Chloride Er 20 Meq Tablet) 40 meq PO ONCE ONE Stop: 02/12/25 05:35 Last Admin: 02/12/25 05:56 Dose: 40 meq Allergies lovastatin Allergy (Verified 01/02/25 13:58) RASH blood Allergy (Unknown, Uncoded 01/02/25 13:58) Shinto Home Medications pantoprazole 40 mg tablet,delayed release 40 mg PO DAILY 11/19/20 [History Confirmed 02/11/25] multivitamin (Multiple Vitamins tablet) 1 tab PO DAILY 03/28/24 [History Confirmed 02/11/25] albuterol sulfate 90 mcg/actuation aerosol inhaler 1 puff inhalation .Q4H PRN Shortness Of Breath 07/23/24 [History Confirmed 02/11/25] acetaminophen 325 mg capsule 650 mg PO QID PRN Pain 12/26/24 [History Confirmed 02/11/25] amiodarone 200 mg tablet 200 mg PO DAILY 12/26/24 [History Confirmed 02/11/25] sertraline 100 mg tablet 100 mg PO BEDTIME 12/26/24 [History Confirmed 02/11/25] bisacodyl 10 mg rectal suppository 10 mg HI DAILY PRN constipation 12/27/24 [History Confirmed 02/11/25] budesonide 32 mcg/actuation nasal spray 1 spray intranasal BID 12/27/24 [History Confirmed 02/11/25] insulin lispro 100 unit/mL subcutaneous pen (Humalog KwikPen (U-100) Insulin) 12 unit SUBCUT TID type 2 diabetes 12/27/24 [History Confirmed 02/11/25] rivaroxaban 20 mg tablet (Xarelto) 20 mg PO QPM 12/27/24 [History Confirmed 02/11/25] rosuvastatin 40 mg tablet 40 mg PO BEDTIME 12/27/24 [History Confirmed 02/11/25] sodium phosphates 19 gram-7 gram/118 mL enema (Fleet Enema) 118 ml HI DAILY PRN Constipation 12/27/24 [History Confirmed 02/11/25] tamsulosin 0.4 mg capsule (Flomax) 0.4 mg PO BEDTIME 12/27/24 [History Confirmed 02/11/25] cetirizine 5 mg tablet (Allergy Relief (cetirizine)) 5 mg PO QPM PRN Allergy Symptoms #1 tab 12/29/24 [Rx Confirmed 02/11/25] hydrocodone 5 mg-acetaminophen 325 mg tablet 1 tab PO Q6H PRN Pain, Moderate #1 tab 12/29/24 [Rx Confirmed 02/11/25] melatonin 3 mg tablet 3 mg PO BEDTIME PRN Sleep #1 tab 12/29/24 [Rx Confirmed 02/11/25] lidocaine HCl 2 % mucosal jelly See Rx Instructions .Route .COMPLEX PRN Pain 01/13/25 [History Confirmed 02/11/25] polyethylene glycol 3350 17 gram/dose oral powder (Miralax) 17 g PO DAILY 01/13/25 [History Confirmed 02/11/25] bumetanide 2 mg tablet 2 mg PO DAILY #30 tabs 01/17/25 [Rx Confirmed 02/11/25] clopidogrel 75 mg tablet 75 mg PO DAILY #30 tabs 01/17/25 [Rx Confirmed 02/11/25] dapagliflozin propanediol 5 mg tablet 5 mg PO DAILY #30 tabs 01/17/25 [Rx Confirmed 02/11/25] insulin glargine 100 unit/mL (3 mL) subcutaneous pen (Lantus Solostar U-100 Insulin) 40 unit (0.4 mL) SUBCUT BEDTIME #0.01 mL 01/17/25 [Rx Confirmed 02/11/25] ipratropium 0.5 mg-albuterol 3 mg (2.5 mg base)/3 mL nebulization soln 3 ml inhalation Q6H PRN Shortness Of Breath #90 mL 01/17/25 [Rx Confirmed 02/11/25] levothyroxine 100 mcg tablet (Levoxyl) 100 mcg PO QAM #30 tabs 01/17/25 [Rx Confirmed 02/11/25] magnesium oxide 400 mg (241.3 mg magnesium) tablet 400 mg PO BID #60 tabs 01/17/25 [Rx Confirmed 02/11/25] metoprolol tartrate 25 mg tablet 25 mg PO BID@0900,2100 #60 tabs 01/17/25 [Rx Confirmed 02/11/25] ursodiol 300 mg capsule 300 mg PO 2XD #60 caps 01/17/25 [Rx Confirmed 02/11/25] Lactobacillus rhamnosus GG 10 billion cell capsule (Culturelle) 1 cap PO BID 02/11/25 [History Confirmed 02/11/25] cephalexin 500 mg capsule 500 mg PO QID 02/11/25 [History Confirmed 02/11/25] metolazone 2.5 mg tablet See Rx Instructions .Route .COMPLEX 02/11/25 [History Confirmed 02/11/25] potassium chloride 10 mEq capsule,extended release 40 meq PO DAILY 02/11/25 [History Confirmed 02/11/25] Discharge Plan Discharge Patient Disposition: Home Condition: Stable Prescriptions: No Action pantoprazole 40 mg tablet,delayed release (DR/EC) 40 mg PO DAILY amiodarone 200 mg tablet 200 mg PO DAILY acetaminophen 325 mg capsule 650 mg PO QID PRN (Reason: Pain) sertraline 100 mg tablet 100 mg PO BEDTIME multivitamin [Multiple Vitamins] Tablet 1 tab PO DAILY albuterol sulfate 90 mcg/actuation HFA aerosol inhaler 1 puff INHALATION .Q4H PRN (Reason: Shortness Of Breath) budesonide 32 mcg/actuation [place],Non-Aerosol 1 spray INTRANASAL BID Rx Instructions: administer into each nostril insulin lispro [Humalog KwikPen Insulin] 100 unit/mL insulin pen 12 unit SUBCUT TID bisacodyl 10 mg Suppository 10 mg HI DAILY PRN (Reason: constipation ) Fleet Enema 19-7 gram/118 mL Enema 118 ml HI DAILY PRN (Reason: Constipation) Xarelto 20 mg tablet 20 mg PO QPM tamsulosin [Flomax] 0.4 mg capsule 0.4 mg PO BEDTIME rosuvastatin 40 mg tablet 40 mg PO BEDTIME cetirizine [Allergy Relief (cetirizine)] 5 mg tablet 5 mg PO QPM PRN (Reason: Allergy Symptoms) Qty: 1 0RF hydrocodone-acetaminophen 5-325 mg tablet 1 tab PO Q6H PRN (Reason: Pain, Moderate) Qty: 1 0RF Rx Instructions: Dose change to PRN only melatonin 3 mg Tablet 3 mg PO BEDTIME PRN (Reason: Sleep) Qty: 1 0RF lidocaine HCl 2 % Jelly See Rx Instructions .ROUTE .COMPLEX PRN (Reason: Pain) Rx Instructions: Apply to penis topically as needed for pain. polyethylene glycol 3350 [Miralax] 17 gram/dose Powder 17 g PO DAILY insulin glargine [Lantus Solostar U-100 Insulin] 100 unit/mL (3 mL) insulin pen 40 unit SUBCUT BEDTIME Qty: 0.01 0RF clopidogrel 75 mg Tablet 75 mg PO DAILY Qty: 30 0RF dapagliflozin propanediol 5 mg Tablet 5 mg PO DAILY Qty: 30 0RF ipratropium-albuterol 0.5 mg-3 mg(2.5 mg base)/3 mL Solution For Nebulization 3 ml inhalation Q6H PRN (Reason: Shortness Of Breath) Qty: 90 0RF levothyroxine [Levoxyl] 100 mcg Tablet 100 mcg PO QAM Qty: 30 0RF metoprolol tartrate 25 mg Tablet 25 mg PO BID@0900,2100 Qty: 60 0RF bumetanide 2 mg tablet 2 mg PO DAILY Qty: 30 0RF ursodiol 300 mg capsule 300 mg PO 2XD Qty: 60 0RF magnesium oxide 400 mg (241.3 mg magnesium) Tablet 400 mg PO BID Qty: 60 0RF metolazone 2.5 mg Tablet See Rx Instructions .ROUTE .COMPLEX Rx Instructions: Take one tablet by mouth every other day for diuretic potassium chloride 10 mEq capsule, extended release 40 meq PO DAILY Culturelle 10 billion cell Capsule 1 cap PO BID cephalexin 500 mg Capsule 500 mg PO QID Referrals: Humberto Griggs DO [Primary Care Provider, [facility]] Patient Instructions: Opioid Safety, Patient Portal & Ann Instructions Transfer Attestations Time Spent in Transfer Care: greater than 30 min Quality Metrics Clinical Quality Measures [ No reported AMI, CVA or VTE this stay] Coding Level of Care Code 96821 Total time (in minutes) for Discharge: 50 Diagnoses 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
== END 2025-02-12 15:35 | disposition short-term general hospital (02) | DRG 638 ==
LOC: ER 14:55 → ER IP 17:51 → MEDSURG 18:25
PROVIDERS: Family Medicine; Admitting Provider Student in an Organized Health Care Education/Training Program; Emergency Provider Family Medicine; PCP Electrodiagnostic Medicine; Visit Provider Internal Medicine
DX: E11.621 Type 2 diabetes mellitus with foot ulcer (principal); L03.115 Cellulitis of right lower limb; L97.414 Non-pressure chronic ulcer of right heel and midfoot with necrosis of bone; E11.51 Type 2 diabetes mellitus with diabetic peripheral angiopathy without gangrene; E11.42 Type 2 diabetes mellitus with diabetic polyneuropathy; E11.22 Type 2 diabetes mellitus with diabetic chronic kidney disease; I12.9 Hypertensive chronic kidney disease with stage 1 through stage 4 chronic kidney disease, or unspecified chronic kidney disease; N18.9 Chronic kidney disease, unspecified; I65.29 Occlusion and stenosis of unspecified carotid artery; E03.2 Hypothyroidism due to medicaments and other exogenous substances; T46.2X5A Adverse effect of other antidysrhythmic drugs, initial encounter; G47.30 Sleep apnea, unspecified; I48.91 Unspecified atrial fibrillation; K21.9 Gastro-esophageal reflux disease without esophagitis; N40.0 Benign prostatic hyperplasia without lower urinary tract symptoms; E66.9 Obesity, unspecified; Z68.34 Body mass index [BMI] 34.0-34.9, adult; Z79.4 Long term (current) use of insulin; Z79.01 Long term (current) use of anticoagulants; Z79.02 Long term (current) use of antithrombotics/antiplatelets; Z86.73 Personal history of transient ischemic attack (TIA), and cerebral infarction without residual deficits; Z87.891 Personal history of nicotine dependence; Z99.89 Dependence on other enabling machines and devices
CPT/HCPCS: 36415; 36416; 73630; 76882; 80048; 80053; 80202; 82962; 83605; 83735; 84100; 84439; 84443; 84481; 85025; 85651; 86141; 87040; 93005; 96365; 96366; 96367; 96372; 96375; 97162; 97530; 99285; J1644; J1815; J2470; J2543; J3373; J3475; J3480; J7050; J9999

== ENCOUNTER 2025-03-04 17:53 | Inpatient (IN) | payer MEDICARE, OTHER, MEDICAID, SELFPAY ==
--- OUTSIDE RECORDS SUMMARY | 2025-03-02 13:30 | XMS_ITS | Encounter Summary ---
Author Organization [facility] Address [address] [place] [address] Care Team Providers Care Aerial Survey Technician Name Role Phone Unavailable Primary Care Provider Unavailabl e Reason for Visit * Reason Comments Post-op Visit Encounter Details Date Type Department Care Team (Late st Contact Info) Description 03/02/2025 1:30 PM HOCKEY PLAYER Office Visit [facility] General and Trauma Surgery-[address] [place] [address] Lucinda Marin NP [address] [place] [address] [address] [place] [address] S/P BKA (below knee amputation) unilateral, right (CMS/HCC) (Primary Dx); Postoperative visit Social History Tobacco Use Types Packs/Day Years Used Date Smoking Tobacco: Never Passive Smoke Exposure: Never Smokeless Tobacco: Never Alcohol Use Standard Drinks/Week Comments Not Currently 0 (1 standard drink = 0.6 oz pur e alcohol) rarely Food Insecurity Answer Date Recorded Do you find you are eating l ess than you should because you can t pay for food? No 02/12/2025 Transportation Needs Answer Date Record ed Have you gone without health care because you didn t have a way to get there? Or worry about transportation for future doctor visits, chicken picker medication, etc.? No 2024 Housing Stability Answer Date Recorded Do you worry you won t have a steady place to sleep or struggle to pay rent or mortgage? No 02/12/2025 Utility Needs Answer Date Recorded Do you have difficulty payin g for utility costs (electric, water or gas bills)? No 02/12/2025 Medication Needs Answer Date Recorded Have you skipped taking medi cation due to cost or worry you can t afford new medications? No 02/12/2025 Feeling Safe Answer Date Recorded Are you in a relationship wi th someone who hurts you emotionally and/or physically? No 02/12/2025 Food Insecurity Answer Date Recorded Patient needs [...] on file Sexual Orientation Not on file documented as of this encounter Last Filed Vital Signs Vital Sign Reading Time Taken Comments Blood Pressure 132/78 03/02/2025 1:52 PM HOCKEY PLAYER Pulse 98 03/02/2025 1:52 PM HOCKEY PLAYER Temperature - - Respiratory Rate - - Oxygen Saturation 67% 03/02/2025 1:52 PM HOCKEY PLAYER Inhaled Oxygen Concentration - - Weight 124.7 kg (275 lb) 03/02/2025 1:52 PM HOCKEY PLAYER Height 188 cm (6' 2 ) 03/02/2025 1:52 PM HOCKEY PLAYER Body Mass Index 35.31 03/02/2025 1:52 PM HOCKEY PLAYER documented in this encounter Miscellaneous Notes * Patient Instructions - Roro Ramos - 03/02/2025 1:30 PM CST Dear Andrés It was a pleasure seeing you today. If you have any questions when you get home do not hesitate to call us at post care instructions: Assessment & Plan Status post Right Leg amputation 02/16/2025 --Keep incision clean, dry and stump chartered wealth manager in place --Wash daily with non-scented antimicrobial soap and water. --Do not submerge incision until healed. -- Inspect stump everyday, use a mirror in hard to visualize, for any redness --Wear stump sock -- Do not bump your stump --[place] removed today --Steri-Strips applied --Do not get wet for 24 hours --After the 24 hours may wash gently with soap and water --Do not scrub or pick at the site --Leave Steri-Strips in place for 7 to 10 days --Do not submerge area until closed and resurfaced and Steri-Strips have been removed --Monitor closely for signs and symptoms of infection --Call with any questions or concerns Wound Of Upper Right Thigh --Transition healed areas over to lotion twice daily and as needed --Utilize lotion such as cocoa butter, Aquaphor, or Eucerin for more mild lotion --For face use of face specific lotion something oil free --Re-application will be needed more frequently -- avoid friction or sheer given the skin is fragile --Avoid direct sun exposure --High SPF sunscreen --Continue to wash daily with soap and water --The discoloration should continue to improve with good wound care, over time (it may take severalmonths/the color may never normalize completely) --Follow-up with any concerns for scarring or discoloration in the future -- skin cancer risk discussed -- Can do full range of motion with therapy just avoid pressure -- Ensure adequate glucose control -- Discontinue stump cover -- causing too much irritation Follow-up as needed, sooner with any issues *The pathology report was discussed with the patient. If you notice any signs of fevers, chills, increased redness, worsening pain, swelling or drainage at the surgical site, please inform us immediately. Don't forget to sign up for [facility] at [employer]. This is an easy way to electronically stay connected to your physician team, view your lab results, renew prescriptions and request appointments. It is easy to sign up and connect with you [facility] team online, any time, anywhere. Also, you may receive a survey in the mail or online about your visit today. I encourage you to complete the survey. We would appreciate a rating of EXCELLENT for your visit today. If you do not feel that you can give us EXCELLENT scores please let us know why so that we can better serve you inthe future. Important information : Our office will only send the prescription to the pharmacy that was discussed, and mentioned above. -- We will not be able to transfer narcotic prescriptions. -- Our office does not refill prescriptions over the weekend, this includes Thursday. -- Allow 48 hours for prescriptions verification. Again, it was a pleasure visiting with you today. We look forward to seeing you in the future. Best regards, Roro Marin NP [facility] General Surgery, Trauma, and Burn Clinic EY PLAYER EY PLAYER EY PLAYER EY PLAYER EY PLAYER EY PLAYER EY PLAYER documented in this encounter Plan of Treatment Not on file documented as of this encounter Visit Diagnoses Diagnosis S/P BKA (below knee amputation) unilateral, right ([facility]/HCC)- Primary Postoperative visit documented in this encounter
[2025-03-04] VITALS (16 sets, daily range): BP systolic 99–151; BP diastolic 44–78; PULSE 44–58; RESP 11–22; TEMP 36.7; O2SAT 91–100; BMI 34.0
--- OUTSIDE RECORDS SUMMARY | 2025-03-04 17:59 | XMS_ITS | Patient Health Record ---
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[employer] Children: x2 Living with: spouse Level of Education: Finished hig h school Living Situation: Home Section Notes: Adventist: Jehovah Witness Smoked 1ppd from [age] y/o Adventist: Jehovah Witness Smoked 1ppd from [age] y/o Adventist: Jehovah Witness Smoked 1ppd from [age] y/o Adventist: Jehovah Witness Smoked 1ppd from 19-27 y/o Adventist: Jehovah Witness Smoked 1ppd from 18-27 y/o Adventist: Jehovah Witness Smoked 1ppd from 18-27 y/o Adventist: Jehovah Witness Smoked 1ppd from 18-27 y/o Adventist: Jehovah Witness Smoked 1ppd from [age] y/o Problems Problem Type SNOMED Code ICD Code Onset Dates Problem Status W/U Status Risk Notes Problem Diabetic renal disease (233064937) Type 2 diabetes mellitus with diabetic chronic kidney disease (E11.22) Active confirmed Problem Chronic kidney disease due to hypertension (271845214916750) Hypertensive chronic kidney disease with stage 1 through stage 4 chronic kidney disease, or unspecified chronic kidney disease (I12.9) Active confirmed Problem Hyperparathyroidism (66159134) Hyperparathyroidism (E21.3) Active confirmed Problem Benign hypertension (40707059) Hypertension, benign (I10) Active confirmed Problem Vitamin D deficiency (68990008) Vitamin D deficiency (E55.9) Active confirmed Problem Diabetic neuropathy (414224075) Diabetic neuropathy (E11.40) Active confirmed Problem Sleep apnea (07848940) Sleep apnea (G47.30) Active confirmed Problem Diabetes mellitus (69857827) Diabetes mellitus (E11.9) Active confirmed Problem Chronic kidney disease stage 3B (disorder) (630947783) Chronic kidney disease, stage 3b (N18.32) Active confirmed Plan Of Treatment Pending Test Test Name Order Date Albumin 94864 11/26/2021 Basic Metabolic Panel (BMP) 11877 2021 Magnesium (B) 82364 11/26/2021 Phosphorus (B) 88095 11/26/2021 Protein (U) Random 80773 11/26/2021 Uric Acid (B) 23166 11/26/2021 Vitamin D Total (B) 41858 11/26/2021 Creatinine (U) 23789 11/26/2021 UA Reflex Micro, Reflex Cult 26675, 8101 5, 41924 11/26/2021 PTH Intact 01724 11/26/2021 Insurance Providers Payer Name Payer Address Payer Phone Subscriber Number Group Number Insured Name Patient Relationship to Insured Coverage Start Date Coverage End Date [place] [address] [place] [phone] [id number] Andrés Dumont Self - patient is the insured [employer] [address] [address] [place] [phone] [id number] Andrés Dumont Self - patient is the insured Medical (General) History Medical History History ICD Code type II diabetes mellitus hypertension (1997) hyperlipidemia peripheral neuropathy CKD secondary hyperparathyriodism Surgical History Surgery Date(Month/Year) cholecystectomy 08/2021 inguinal hernia repair right with hyproc [place] evacuation Hospitalization History Reason Date(Month/Year) see surgical
--- OUTSIDE RECORDS SUMMARY | 2025-03-04 17:59 | XMS_ITS | Clinical Summary ---
Author Organization [facility] Address [address] [place] [address] Care Team Providers Care C Winforms Developer Name Role Phone Unavailable Primary Care Provider Unavailabl e Allergies Active Allergy Reactions Criticality Noted Date Comments Lovastatin Muscle Pain,Other (S ee Comments) Low 01/13/2023 Blzckyo-Bzg-Zqa Reductase Inhibitors Itching Low 12/30/2022 Medications pantoprazole (PROTONIX) 40 mg Tablet, Delayed Release (E.C.) Take 40 mg by mouth daily. Active rosuvastatin (CRESTOR) 40 mg tablet Take 40 mg by mouth daily. Active fluticasone propionate (FLONASE) 50 mcg/spray [place], Suspension nasal inhaler USE 2 SPRAY(S) IN [...] mouth daily with supper. 90 Tablet 06/17/19 25 Active albuterol sulfate HFA 90 mcg/actuation aerosol inhaler inhale 2 puffs by mouth every 4 to 6 hours as needed 06/22/19 25 Active lisinopriL (PRINIVIL) 20 mg tablet Take 1 Tablet by mouth daily. Active potassium CHLORIDE (KLOR-CON) 10 mEq Extended Release tablet Take 1 Tablet by mouth 2 times daily. 11/17/19 24 Active amiodarone (CORDARONE) 200 mg tablet Take 1 Tablet (200 mg) by mouth daily. 08/06/19 25 Active escitalopram oxalate (LEXAPRO) 10 mg tablet TAKE 1 TABLET BY MOUTH ONCE DAILY AT BEDTIME FOR SLEEP 07/21/19 25 Active folic acid (FOLVITE) 1 mg tablet Take 1 Tablet (1 mg) by mouth daily. 02/26/20 25 Active ferrous sulfate 324 mg (65 mg iron) Tablet, Delayed Release (E.C.) Take 1 Tablet (324 mg) by mouth daily. 02/25/20 25 Active saccharomyces boulardii (FLORASTOR) 250 mg Capsule Take 1 Capsule (250 mg) by mouth 2 times daily. 02/25/20 25 Active amoxicillin-clavulan ate (AUGMENTIN) 875-125 mg tablet Take 1 Tablet by mouth every 12 hours for 5 days. 02/25/20 25 2024 Active Problems Problem Noted Date Diagnosed Date Multifocal pneumonia 02/23/2025 Acute hypoxic respiratory failure 02/19/2025 Status post below-knee amputation of right lower extremity 02/19/2025 Diabetes mellitus 07/31/2024 Status post fall 07/31/2024 Intertrochanteric fracture 07/31/2024 Body mass index (BMI) of 35.0 to 35.9 07/31/2024 Pre-operative clearance 06/13/2024 Acute ischemic stroke 06/12/2024 Stenosis of right carotid artery 06/12/2024 Acute left-sided weakness 06/11/2024 Type 2 diabetes mellitus with chronic kidney dis ease 06/11/2024 Hyperparathyroidism 06/11/2024 Stenosis of right internal carotid artery 2024 History of CVA (cerebrovascular accident) 2024 Gastroesophageal reflux disease 02/29/2024 Near syncope 11/13/2023 Acute kidney injury superimposed on CKD 11/13/19 Elevated LFTs 11/13/2023 Elevated troponin 11/13/2023 Prolonged [...] Problem Noted Date Diagnosed Date Resolved Date Acute osteomyelitis of right calcaneus 02/15/2025 02/24/2025 Diabetic ulcer of right foot associated with type 2 diabetes mellitus 02/15/2025 02/24/2025 Foot abscess, right 02/12/2025 02/25/20 Cellulitis of right lower extremity 02/12/2025 02/24/2025 Combined forms of age-relate d cataract of both eyes 08/21/2021 01/13/2023 Encounters Date Type Department Care Team Description 03/03/2025 Telephone [facility] General and Trauma Surgery[address] [place] [phone] Lucinda Marin NP Question 03/02/2025 1:30 PM [employer] Office Visit [facility] General and Trauma Surgery[address] [place] [phone] Lucinda Marin NP S/P BKA (below knee amputation) unilateral, right (CMS/HCC) (Primary Dx); Postoperative visit 02/21/2025 External Device Data STL ABSTRACTION Provider, Abstract 02/16/2025 7:32 AM [employer] Anesthesia Event [facility] Operating Room [address] [place] [phone] Amari Fletcher MD 02/16/2025 7:20 AM [employer] - 02/16/2025 9:35 AM [employer] Surgery [facility] Operating Room [address] [place] [address] Fiona Barton MD LEG AMPUTATION BELOW KNEE 02/14/2025 External Device Data STL ABSTRACTION Provider, Abstract 02/14/2025 External Device Data STL ABSTRACTION Provider, Abstract 02/12/2025 5:09 PM [employer] - 02/24/2025 1:00 PM [employer] Hospital Encounter [facility] 4B Cardiac [address] [place] [phone] Amairani Alegria MD Phelps, MD Rosemarie Dominguez, Mary Mcneil, MD Nath, MD Carole Morgan, Brett Salas, MD Morales, MD Parveen Foot abscess, right Discharge Disposition: [facility](S[facility]) with Medicare Certification in Anticipation of Skilled Care 02/12/2025 Travel from Last 3 Months Immunizations Immunization Administration Dates Next Due (PNEUMOVAX 23)(50 YRS UP) PN EUMOCOCCAL POLYSACCHARIDE (PPV23) 0.5 ML, IM 04/02/2017 (PREVNAR 13)(6 WKS UP) PNEUM OCOCCAL CONJUGATE (PCV13) 0.5 ML, IM 02/21/2019 (PREVNAR 20)(6 WKS UP) PNEUM OCOCCAL CONJUGATE VACCINE 20-VALENT (PCV20), POLYSACCHARIDE [id number] CONJUGATE, ADJUVANT 0.5 ML (PF) IM 04/22/2023 [...] worry about transportation for future doctor visits, garbage pick up man medication, etc.? No 2024 Housing Stability Answer [...] Comments Blood Pressure 132/78 03/02/2025 1:52 PM [employer] Pulse 98 03/02/2025 1:52 PM [employer] Temperature 35.9 C (96.6 F) 02/24/2025 11:39 AM [employer] Respiratory Rate 16 02/24/2025 11:39 AM [employer] Oxygen Saturation 67% 03/02/2025 1:52 PM [employer] Inhaled Oxygen Concentration - - Weight 124.7 kg (275 lb) 03/02/2025 1:52 PM [employer] Height 188 cm (6' 2 ) 03/02/2025 1:52 PM [employer] Body Mass Index 35.31 03/02/2025 1:52 PM [employer] Plan of Treatment Health Maintenance Due Date [...] PNEUMOCOCCAL VACCINE 50+ YEARS Completed 0 04/22/2023, 04/22/2023, 02/21/2019, Additional history exists Medical Devices Implanted Type Area Certified Home Health Aide Device Identifier Shelf Expiration Date Model / Serial / Lot Clip Ligating Horizon Med Ti [id number] - [facility] [place] - [id number] Implanted:Qty: 1 on 06/15/2024 by Mary Herrera DO at [facility] Clip Right: Groin TELEFLEX- WECK CLOSURE SYS [id number] 02/27/2029 [id number] / / [id number] Clip Ligating Horizon Red [id number] - [facility] [place] - [id number] Implanted:Qty: 1 on 06/15/2024 by Mary Herrera DO at [facility] Clip Right: Groin TELE[employer]LEX INC [id number] 02/16/2029 [id number] / / [id number] Agent Hemostat Surgicel 2x3in 1952s - [id number] Implanted:Qty: 1 on 06/15/2024 by Mary Herrera DO at [facility] Hemostatic Right: Groin J[employer]J- [employer] [id number] 09/19/2028 [id number] / / [id number] Lens Iol Tecnis Eyhance 22.5 [id number] - [id number] Implanted:Qty: 1 on 12/16/2022 by Edison Cabrales MD at [facility] Left: Eye GEE [employer] OPTICS-J[employer]J VISION 10/03/2025 [id number] / [id number] / NA Lens Iol Tecnis Eyhance 22.5 [id number] - [id number] Implanted:Qty: 1 on 12/30/2022 by Edison Cabrales MD at [facility] Right: Eye [employer]ISION 09/04/2025 [id number] / [id number] / Stent Vasc Enroute 10-8x40mm [id number] - [id number] Implanted:Qty: 1 on 06/15/2024 by Mary Herrera DO at [facility] Stent Right: Carotid SILKROAD [id number] 10/20/2026 [id number] / / [id number] Procedures Procedure Name Priority Date/Time Associated Diagnosis Comments TELEMETRY REPORT 02/27/2025 3:46 AM [employer] POC GLUCOSE Routine 02/24/2025 10:02 AM [employer] POC GLUCOSE Routine 02/24/2025 9:05 AM [employer] POC GLUCOSE Routine 02/24/2025 8:20 AM [employer] POC GLUCOSE Routine 02/24/2025 7:21 AM [employer] BASIC METABOLIC PANEL Timed Study 02/24/2025 5:12 AM [employer] CBC WITHOUT DIFFERENTIAL Routine 02/24/2025 5:12 AM [employer] POC GLUCOSE Routine 02/23/2025 4:39 PM [employer] RT ASSESS AND TREAT Routine 02/23/2025 1 1:41 AM [employer] POC GLUCOSE Routine 02/23/2025 11:06 AM [employer] POC GLUCOSE Routine 02/23/2025 7:16 AM [employer] MAGNESIUM LEVEL Routine 02/23/2025 4:57 AM [employer] BASIC METABOLIC PANEL Timed Study 02/23/2025 4:57 AM [employer] CBC WITHOUT DIFFERENTIAL Routine 02/23/2025 4:57 AM [employer] POC GLUCOSE Routine 02/22/2025 9:09 PM [employer] POC GLUCOSE Routine 02/22/2025 5:34 PM [employer] XR CHEST PA OR AP 1 VW Stat 1:25 PM [employer] PROTEIN, BODY FLUID Routine 02/22/2025 1 2:53 PM [employer] PH, BODY FLUID Routine 02/22/2025 12:53 PM [employer] LACTATE DEHYDROGENASE, BODY FLUID Routine 02/22/2025 12:53 PM [employer] GLUCOSE, BODY FLUID Routine 02/22/2025 1 2:53 PM [employer] ALBUMIN LEVEL, BODY FLUID Routine 02/22/2025 12:53 PM [employer] ANAEROBIC/AEROBIC CULTURE W GRAM STAIN Routine 02/22/2025 12:53 PM [employer] US ASPIRATION PLEURA LEFT Routine 02/22/2025 12:49 PM [employer] POC GLUCOSE Routine 02/22/2025 11:28 AM [employer] POC GLUCOSE Routine 02/22/2025 7:30 AM [employer] COMPREHENSIVE METABOLIC PANEL Routine 02/22/2025 5:30 AM [employer] CBC WITH DIFFERENTIAL Routine 02/22/2025 5:30 AM [employer] POC GLUCOSE Routine 02/21/2025 4:59 PM [employer] POC GLUCOSE Routine 02/21/2025 11:42 AM [employer] POC GLUCOSE Routine 02/21/2025 7:02 AM [employer] IRON, TIBC, AND PERCENT SATURATION Routine 02/21/2025 4:05 AM [employer] COMPREHENSIVE METABOLIC PANEL Routine 02/21/2025 4:05 AM [employer] CBC WITH DIFFERENTIAL Routine 02/21/2025 4:05 AM [employer] VANCOMYCIN LEVEL RANDOM Routine 02/21/2025 4:05 AM [employer] POC GLUCOSE Routine 02/20/2025 9:13 PM [employer] POC GLUCOSE Routine 02/20/2025 4:25 PM [employer] XR CHEST PA OR AP 1 VW Stat 2:40 PM [employer] US ASPIRATION PLEURA RIGHT Routine 02/20/2025 12:37 PM [employer] CYTOLOGY, NON GYNE Pathology 02/20/2025 12 :19 PM [employer] PROTEIN, BODY FLUID Routine 02/20/2025 1 2:19 PM [employer] LACTATE DEHYDROGENASE, BODY FLUID Routine 02/20/2025 12:19 PM [employer] ANAEROBIC/AEROBIC CULTURE W GRAM STAIN Routine 02/20/2025 12:19 PM [employer] POC GLUCOSE Routine 02/20/2025 11:34 AM [employer] PROTIME-INR Stat 02/20/2025 9:48 AM [employer] CT CHEST WO CONTRAST Routine 02/20/2025 8:31 AM [employer] POC GLUCOSE Routine 02/20/2025 7:14 AM [employer] LACTATE DEHYDROGENASE Routine 02/20/2025 6:19 AM [employer] COMPREHENSIVE METABOLIC PANEL Routine 02/20/2025 6:19 AM [employer] CBC WITH DIFFERENTIAL Routine 02/20/2025 6:19 AM [employer] VANCOMYCIN LEVEL RANDOM Routine 02/20/2025 6:19 AM [employer] POC GLUCOSE Routine 02/19/2025 9:22 PM [employer] POC GLUCOSE Routine 02/19/2025 4:58 PM [employer] POC LACTIC ACID Routine 02/19/2025 2:35 PM [employer] BLOOD GAS VENOUS Stat 02/19/2025 2:35 PM [employer] POC GLUCOSE Routine 02/19/2025 2:02 PM [employer] POC GLUCOSE Routine 02/19/2025 11:18 AM [employer] POC GLUCOSE Routine 02/19/2025 7:24 AM [employer] BRAIN NATRIURETIC PEPTIDE, BNP OR PROBNP Routine 02/19/2025 3:43 AM [employer] COMPREHENSIVE METABOLIC PANEL Routine 02/19/2025 3:43 AM [employer] CBC WITH DIFFERENTIAL Routine 02/19/2025 3:43 AM [employer] VANCOMYCIN LEVEL RANDOM Routine 02/19/2025 3:43 AM [employer] POC LACTIC ACID Routine 02/19/2025 12:02 AM [employer] BLOOD GAS ARTERIAL Routine 02/19/2025 12 :02 AM [employer] POC GLUCOSE Routine 02/18/2025 10:31 PM [employer] BLOOD GAS ARTERIAL Routine 02/18/2025 10 :21 PM [employer] POC GLUCOSE Routine 02/18/2025 8:57 PM [employer] XR ABDOMEN 1 VW Routine 02/18/2025 6:36 PM [employer] POC GLUCOSE Routine 02/18/2025 5:17 PM [employer] CBC WITH DIFFERENTIAL Routine 02/18/2025 11:37 AM [employer] POC GLUCOSE Routine 02/18/2025 11:34 AM [employer] COMPREHENSIVE METABOLIC PANEL Routine 02/18/2025 10:32 AM [employer] VANCOMYCIN LEVEL RANDOM Routine 02/18/2025 10:32 AM [employer] XR CHEST PA OR AP 1 VW Routine 10:09 AM [employer] POC GLUCOSE Routine 02/18/2025 7:14 AM [employer] POC GLUCOSE Routine 02/17/2025 4:48 PM [employer] POC GLUCOSE Routine 02/17/2025 11:29 AM [employer] POC GLUCOSE Routine 02/17/2025 7:21 AM [employer] CBC WITH DIFFERENTIAL Routine 02/17/2025 6:22 AM [employer] BASIC METABOLIC PANEL Routine 02/17/2025 6:22 AM [employer] VANCOMYCIN LEVEL RANDOM Routine 02/17/2025 6:22 AM [employer] POC GLUCOSE Routine 02/16/2025 8:54 PM [employer] POC GLUCOSE Routine 02/16/2025 7:54 PM [employer] POC GLUCOSE Routine 02/16/2025 7:12 PM [employer] POC GLUCOSE Routine 02/16/2025 6:54 PM [employer] POC GLUCOSE Routine 02/16/2025 5:16 PM [employer] POC GLUCOSE Routine 02/16/2025 11:19 AM [employer] POC GLUCOSE Routine 02/16/2025 9:49 AM [employer] PATHOLOGY Pathology 02/16/2025 8:23 AM [employer] MA ANES INSERT ENDOTRACHEAL AIRWAY Routine 02/16/2025 7:52 AM [employer] LEG AMPUTATION ABOVE OR BELOW KNEE 02/16/2025 7:20 AM [employer] BASIC METABOLIC PANEL Routine 02/16/2025 4:29 AM [employer] VANCOMYCIN LEVEL RANDOM Routine 02/16/2025 4:29 AM [employer] POC GLUCOSE Routine 02/15/2025 8:58 PM [employer] POC GLUCOSE Routine 02/15/2025 5:08 PM [employer] US TRANSCUTANEOUS OXYGEN FER MULTI Stat 02/15/2025 2:46 PM [employer] POC GLUCOSE Routine 02/15/2025 11:33 AM [employer] POC GLUCOSE Routine 02/15/2025 7:18 AM [employer] MAGNESIUM LEVEL Routine 02/15/2025 4:58 AM [employer] VANCOMYCIN LEVEL RANDOM Routine 02/15/2025 4:58 AM [employer] BASIC METABOLIC PANEL Routine 02/15/2025 4:58 AM [employer] CBC WITH DIFFERENTIAL Routine 02/15/2025 4:58 AM [employer] POC GLUCOSE Routine 02/14/2025 10:28 PM [employer] POC GLUCOSE Routine 02/14/2025 5:00 PM [employer] POC GLUCOSE Routine 02/14/2025 11:04 AM [employer] POC GLUCOSE Routine 02/14/2025 7:39 AM [employer] BASIC METABOLIC PANEL Routine 02/14/2025 5:46 AM [employer] CBC WITH DIFFERENTIAL Routine 02/14/2025 5:46 AM [employer] VANCOMYCIN LEVEL RANDOM Routine 02/14/2025 5:46 AM [employer] MRI ANKLE WO CONTRAST RIGHT Routine 02/13/2025 9:59 PM [employer] POC GLUCOSE Routine 02/13/2025 8:43 PM [employer] POC GLUCOSE Routine 02/13/2025 5:10 PM [employer] POC GLUCOSE Routine 02/13/2025 11:37 AM [employer] US DUPLEX ARTERIAL LEG RIGHT Routine 02/13/2025 8:58 AM [employer] POC GLUCOSE Routine 02/13/2025 7:41 AM [employer] COMPREHENSIVE METABOLIC PANEL Routine 02/13/2025 4:14 AM [employer] CBC WITH DIFFERENTIAL Routine 02/13/2025 4:14 AM [employer] POC GLUCOSE Routine 02/12/2025 8:58 PM [employer] POC GLUCOSE Routine 02/12/2025 7:43 PM [employer] CBC WITH DIFFERENTIAL Stat 02/12/2025 6:49 PM [employer] COMPREHENSIVE METABOLIC PANEL Stat 02/12/2025 6:48 PM [employer] LIPID PANEL Routine 06/12/2024 7:23 AM CDT HEMOGLOBIN A1C Routine 06/12/2024 7:23 AM CDT from Last 3 Months or Most Recently Relevant to Health Maintenance Results * TELEMETRY REPORT (02/27/2025 3:46 AM [employer]) us Provider Scanning ECG ORDERABLES Final Result * (ABNORMAL) POC GLUCOSE (02/24/2025 10:02 AM [employer]) Only the most recent of52 resultswithin the time period is included. GLUCOSE POC 101(H) 74 - 99 mg/dL 02/24/2025 10:02 AM [employer] [facility] SPECIMEN SOURCE, GLUCOSE POC Capillary 02/24/2025 10:02 AM [facility] Blood, whole 02/24/2025 10:0 2 AM [employer] 02/24/2025 10:12 AM [employer] Parveen Morales MD POINT OF CARE TESTING Final Res ult [facility] CLIA # [id number] [address] [place] [address] [place], [place] [id number] * (ABNORMAL) CBC WITHOUT DIFFERENTIAL (02/24/2025 5:12 AM [employer]) Only the most recent of2 resultswithin the time period is included. WBC 12.1(H) 4.8 - 10.8 K/uL 02/24/2025 5:39 AM [facility] NRBCS 1(H) <1 % 02/24/2025 5:39 AM [employer] [facility] RBC 2.89(L) 4.60 - 6.20 M/uL 02/24/2025 5:39 AM [facility] HEMOGLOBIN 7.4(L) 14.0 - 18.0 g/dL 02/24/2025 5:39 AM [facility] HEMATOCRIT 26.3(L) 41.0 - 53.0 % 02/24/2025 5:39 AM [facility] MCV 91.0 84.0 - 103.0 fL 02/24/2025 5:39 AM [facility] MCH 25.6(L) 27.0 - 34.0 pg 02/24/2025 5:39 AM [facility] MCHC 28.1(L) 30.0 - 35.0 g/dL 02/24/2025 5:39 AM [facility] PLATELETS 565(H) 140 - 440 K/uL 02/24/2025 5:39 AM [facility] MPV 9.2 8.9 - 12.8 fL 02/24/2025 5:39 AM [facility] RDW 19.3(H) 11.0 - 14.5 % 02/24/2025 5:39 AM [facility] RDW-STDEV 55.7(H) 37.0 - 54.0 fL 02/24/2025 5:39 AM [facility] Blood Venipuncture / Unknown 02/24/2025 5:12 AM [employer] 02/24/2025 5:20 AM [facility] us Brett Lam MD HEMATOLOGY ORDERABLES Final R esult [facility] CLIA # [id number] [address] [place] [id number] * (ABNORMAL) BASIC METABOLIC PANEL (02/24/2025 5:12 AM [facility]) Only the most recent of6 resultswithin the time period is included. SODIUM 140 136 - 145 mmol/L 02/24/2025 5:54 AM [facility] POTASSIUM 3.8 3.5 - 5.1 mmol/L 02/24/2025 5:54 AM [facility] CHLORIDE 107 98 - 107 mmol/L 02/24/2025 5:54 AM [facility] CO2 23 22 - 29 mmol/L 02/24/2025 5:54 AM [facility] CALCIUM 8.4(L) 8.8 - 10.2 mg/dL 02/24/2025 5:54 AM [facility] BUN 37(H) 8 - 23 mg/dL 02/24/2025 5:54 AM [facility] CREATININE 2.83(H) 0.67 - 1.17 mg/dL 02/24/2025 5:54 AM [facility] Comment:The GFR result is no t clinically significant on patients <18 or >70 years of age. GLUCOSE 75 74 - 99 mg/dL 02/24/2025 5:54 AM [facility] GFR 22 mL/min/1. 73 sq meter 02/24/2025 5:54 AM [facility] Comment:eGFR calculated with 2020 CKD-EPI equation. Vegetarian diet, extremely high or low muscle mass, and may affect results. Cystatin C with Glomerular Filtration Rate is a suitable alternative for these patients. ANION GAP 10 9 - 20 mmol/L 02/24/2025 5:54 AM [facility] Blood Venipuncture / Unknown 02/24/2025 5:12 AM [employer] 02/24/2025 5:17 AM [employer] us Zaidisi Abe Causa DO CHEMISTRY ORDERABLES Final Resu lt [facility] CLIA # [id number] [address] [place] [id number] * MAGNESIUM LEVEL (02/23/2025 4:57 AM [employer]) Only the most recent of2 resultswithin the time period is included. MAGNESIUM 2.1 1.6 - 2.4 mg/dL 02/23/2025 8:03 AM [employer] [facility] Blood Venipuncture / Unknown 02/23/2025 4:57 AM [employer] 02/23/2025 5:06 AM [employer] Parveen Morales MD CHEMISTRY ORDERABLES Final Resu lt [facility] CLIA # [id number] [id number] [place] [address] * XR CHEST PA OR AP 1 VW (02/22/2025 1:25 PM [employer]) Only the most recent of3 resultswithin the time period is included. Anatomical Region Laterality Modality Chest Computed Radiogr aphy 02/22/2025 1:25 PM [employer] Impressions 02/22/2025 1:54 PM [employer] Impression: The cardiomediastinal structures are stable. Improved left lower lobe airspace disease. Trace right pleural effusion. Mildly improved right perihilar and lower lobe airspace disease. No pneumothorax. Narrative 02/22/2025 1:54 PM [employer] Exam: XR CHEST PA OR AP 1 VW Date/Time of Exam: 02/22/2025 1:25 PM Reason For Exam: Thoracentesis. Diagnosis: Acute ischemic stroke (CMS/HCC). Comparison: February 20, 2025. Procedure Note Daniel Oconnor MD - 02/22/2025 Exam: XR CHEST PA OR AP 1 VW Date/Time of Exam: 02/22/2025 1:25 PM Reason For Exam: Thoracentesis. Diagnosis: Acute ischemic stroke (CMS/HCC). Comparison: February 20, 2025. Impression: The cardiomediastinal structures are stable. Improved left lower lobe airspace disease. Trace right pleural effusion. Mildly improved right perihilar and lower lobe airspace disease. No pneumothorax. Lyric De Oliveira PA-C DIAGNOSTIC IMAGING ORDERA BLES Final Result * ANAEROBIC/AEROBIC CULTURE W GRAM STAIN (02/22/2025 12:53 PM [employer]) Only the most recent of2 resultswithin the time period is included. CULTURE No aerobic or anaerobic growth 02/25/2025 8:01 AM [employer] [facility] GRAM STAIN 1+ (Rare or Occasional) Polymorphonuclear WBC 02/25/2025 8:01 AM [employer] [facility] GRAM STAIN No organisms observed 02/25/2025 8:01 AM [facility] Body fluid (Pleura, left) Collection / Unknown 02/22/2025 12:53 PM [employer] 02/22/2025 1:36 PM [employer] Brett Lam MD MICROBIOLOGY - GENERAL ORDERA BLES Final Result Performing Organization Address [facility] Co de Phone Number [facility] CLIA # [id number] [address] [address] [place] [address] * PROTEIN, BODY FLUID (02/22/2025 12:53 PM [facility]) Only the most recent of2 resultswithin the time period is included. PROTEIN, FLD 1.0 g/dL 02/22/2025 2:24 PM [employer] [employer] [facility] Body fluid (Pleura, left) Collection / Unknown 02/22/2025 12:53 PM [facility] [facility] 02/22/2025 1:36 PM [facility] Narrative [facility] - 02/22/2025 2:24 PM [employer] [facility] Interpretive Criteria: Transudate: <2.0 g/dL Exudate: >2.0 g/dL The reference range and other method performance specifications are unavailable for this body fluid. Comparison of this result with the concentration in the blood, serum, or plasma is recommended. us Brett Lam MD BODY FLUIDS AND STOOLS Final Result Performing Organization Address City/[facility]/ZIP Co de Phone Number [facility] CLIA # [id number] [address] [address] * LACTATE DEHYDROGENASE, BODY FLUID (02/22/2025 12:53 PM [employer] [facility]) Only the most recent of2 resultswithin the time period is included. LD, FLD 22 U/L 02/22/2025 2:24 PM [employer] [employer] [facility] Body fluid (Pleura, left) Collection / Unknown 02/22/2025 12:53 PM [employer] [facility] [facility] 02/22/2025 1:36 PM [facility] [facility] 02/22/2025 2:24 PM [facility] [facility] Interpretive Criteria: Transudate: < 200 U/L or Fluid/Serum Ratio < 0.6 Exudate: > 200 U/L or Fluid/Serum Ratio > 0.6 The reference range and other method performance specifications are unavailable for this body fluid. Comparison of this result with the concentration in the blood, serum or plasma is recommended. Brett Lam MD BODY FLUIDS AND STOOLS Final Result [facility] CLIA # [id number] [address] [place] [id number] * GLUCOSE, BODY FLUID (02/22/2025 12:53 PM [facility] [facility]) GLUCOSE, FLD 168 mg/dL 02/22/2025 2:24 PM [facility] Body fluid (Pleura, left) Collection / Unknown 02/22/2025 12:53 PM [facility] [facility] 02/22/2025 1:36 PM [facility] [employer] [facility] - 02/22/2025 2:24 PM [facility] [facility] Interpretive Criteria: Transudate: Fluid/Serum Ratio >0.5 Exudate: Fluid/Serum Ratio <0.5 or Fluid Glucose <60 mg/dL The reference range and other method performance specifications are unavailable for this body fluid. Comparison of this result with the concentration in the blood, serum or plasma is recommended. Brett Lam MD BODY FLUIDS AND STOOLS Final Result Performing Organization Address [facility] Co de Phone Number [facility] CLIA # [id number] [address] [place] [id number] * ALBUMIN LEVEL, BODY FLUID (02/22/2025 12:53 PM [facility] [facility]) ALBUMIN, FLD 0.7 g/dL 02/22/2025 2:24 PM [facility] [facility] Body fluid (Pleura, left) Collection / Unknown 02/22/2025 12:53 PM [facility] [facility] 02/22/2025 1:36 PM [facility] - 02/22/2025 2:24 PM [facility] [facility] Interpretive Criteria: Transudate: Serum-Ascites gradient >1.1 g/dL Exudate: Serum-Ascites gradient <1.1 g/dL The reference range and other method performance specifications are unavailable for this body fluid. Comparison of this result with the concentration in the blood, serum or plasma is recommended. Brett Lam MD BODY FLUIDS AND STOOLS Final Result Performing Organization Address [facility] de Phone Number [facility] CLIA # [id number] [address] [place] [phone] * PH, BODY FLUID (02/22/2025 12:53 PM [facility] [facility]) PH, FLD 7.53 02/22/2025 2:14 PM [employer] [facility] Body fluid (Pleura, left) Collection / Unknown 02/22/2025 12:53 PM [facility] [facility] 02/22/2025 1:36 PM [employer] - 02/22/2025 2:14 PM [facility] [facility] Reference Range: Normal Serous Fluids (pleural,pericardial) = 7.40 - 7.64 Pleural Transudates: 7.40 - 7.50 Exudates: 7.35 - 7.45 No Reference range established for other fluid types. Pleural fluid pH < 7.30 can be seen with empyema, malignancy, rheumatoid pleurisy, SLE, tuberculosis, and esophageal rupture. A pH < 6.00 is suggestive of esophageal rupture. Brett Lam MD BODY FLUIDS AND STOOLS Final Result [id number] [address] [address] * US ASPIRATION PLEURA LEFT (02/22/2025 12:49 PM [facility] [employer]) Anatomical Region Laterality Modality Chest Ultrasound 02/22/2025 12:4 9 PM [employer] Impressions 02/22/2025 12:51 PM [employer] [employer] IMPRESSION: Please see below. Exam: US ASPIRATION PLEURA LEFT Date/Time of Exam: 02/22/2025 12:49 PM Reason For Exam: Pleural Effusion. This procedure was performed and preliminary findings dictated by Lyric De Oliveira PA-C. Supervision and final interpretation by Dr. Zapata. CONSENT: Risks, benefits, and alternatives of the procedure were discussed with the patient. Specific risks of thoracentesis to include, but not limited to: bleeding, infection, pain, pneumothorax which might require placement of a chest tube or surgery to correct, damage to adjacent tissue/organs, and . The procedure may need to be repeated if the fluid sample obtained is non-diagnostic. Written informed consent was obtained from the patient. Procedure in Detail: A time out was performed to verify the patient and procedure. The patient was placed in a sitting position on the edge of the exam table, and ultrasound was utilized to evaluate the left thorax for largest pocket of free fluid. The area was marked, prepped, and draped in the usual sterile fashion. All elements of maximal sterile barrier technique, including hand hygiene and cutaneous antisepsis with an antisepsis agent, were used. Local anesthesia was achieved with 1% lidocaine overlying the proposed needle course. A 10 cm 5 Bahraini BMEYE catheter was inserted and approximately 470 ml of a clear pale yellow pleural fluid was then removed via suction. The centesis catheter was removed in its entirety, the chlorhexidine cleansed from the skin, and a sterile dressing placed. The patient tolerated the procedure well without complications. A post procedural expiratory chest film will be ordered. Estimated Blood Loss: None Narrative Procedure Note Dexter Zapata MD - 02/22/2025 IMPRESSION: Please see below. Exam: US ASPIRATION PLEURA LEFT Date/Time of Exam: 02/22/2025 12:49 PM Reason For Exam: Pleural Effusion. This procedure was performed and preliminary findings dictated by Lyric De Oliveira PA-C. Supervision and final interpretation by Dr. Zapata. CONSENT: Risks, benefits, and alternatives of the procedure were discussed with the patient. Specific risks of thoracentesis to include, but not limited to: bleeding, infection, pain, pneumothorax which might require placement of a chest tube or surgery to correct, damage to adjacent tissue/organs, and . The procedure may need to be repeated if the fluid sample obtained is non-diagnostic. Written informed consent was obtained from the patient. Procedure in Detail: A time out was performed to verify the patient and procedure. The patient was placed in a sitting position on the edge of the exam table, and ultrasound was utilized to evaluate the left thorax for largest pocket of free fluid. The area was marked, prepped, and draped in the usual sterile fashion. All elements of maximal sterile barrier technique, including hand hygiene and cutaneous antisepsis with an antisepsis agent, were used. Local anesthesia was achieved with 1% lidocaine overlying the proposed needle course. A 10 cm 5 [place]i REVENUE.comeh centesis catheter was inserted and approximately 470 ml of a clear pale yellow pleural fluid was then removed via suction. The centesis catheter was removed in its entirety, the chlorhexidine cleansed from the skin, and a sterile dressing placed. The patient tolerated the procedure well without complications. A post procedural expiratory chest film will be ordered. Estimated Blood Loss: None us Brett Lam MD US ORDERABLES Final Result * (ABNORMAL) CBC WITH DIFFERENTIAL (02/22/2025 5:30 AM [employer]) Only the most recent of10 resultswithin the time period is included. WBC 13.9(H) 4.8 - 10.8 K/uL 02/22/2025 5:48 AM [facility] NRBCS 1(H) <1 % 02/22/2025 5:48 AM [facility] RBC 2.84(L) 4.60 - 6.20 M/uL 02/22/2025 5:48 AM [facility] HEMOGLOBIN 7.2(L) 14.0 - 18.0 g/dL 02/22/2025 5:48 AM [facility] HEMATOCRIT 25.3(L) 41.0 - 53.0 % 02/22/2025 5:48 AM [facility] MCV 89.1 84.0 - 103.0 fL 02/22/2025 5:48 AM [facility] MCH 25.4(L) 27.0 - 34.0 pg 02/22/2025 5:48 AM [facility] MCHC 28.5(L) 30.0 - 35.0 g/dL 02/22/2025 5:48 AM [facility] PLATELETS 541(H) 140 - 440 K/uL 02/22/2025 5:48 AM [facility] MPV 9.1 8.9 - 12.8 fL 02/22/2025 5:48 AM [facility] RDW 17.4(H) 11.0 - 14.5 % 02/22/2025 5:48 AM [facility] RDW-STDEV 55.8(H) 37.0 - 54.0 fL 02/22/2025 5:48 AM [facility] NEUTROPHILS 71 42 - 75 % 02/22/2025 5:48 AM [facility] LYMPHOCYTES 10(L) 24 - 44 % 02/22/2025 5:48 AM [facility] MONOCYTES 10 2 - 10 % 02/22/2025 5:48 AM [facility] EOSINOPHILS 4 0 - 7 % 02/22/2025 5:48 AM [facility] BASOPHILS 0 0 - 1 % 02/22/2025 5:48 AM [facility] IMMATURE GRANULOCYTES 5(H) 0 - 2 % 02/22/2025 5:48 AM [facility] NEUTROPHIL ABSOLUTE 9.91(H) 2.00 - 8.00 K/uL 02/22/2025 5:48 AM [facility] LYMPHOCYTE ABSOLUTE 1.40 1.20 - 4.00 K/uL 02/22/2025 5:48 AM [facility] MONOCYTE ABSOLUTE 1.42(H) 0.10 - 0.60 K/uL 02/22/2025 5:48 AM [facility] EOSINOPHIL ABSOLUTE 0.49 0.00 - 0.70 K/uL 02/22/2025 5:48 AM [facility] BASOPHILS ABSOLUTE 0.05 0.00 - 0.20 K/uL 02/22/2025 5:48 AM [facility] IMMATURE GRANULOCYTES ABSOLUTE 0.63(H) 0.00 - 0.10 K/uL 02/22/2025 5:48 AM [facility] SMEAR REVIEWED: NA - Not Applicable 02/22/2025 5:48 AM [facility] Blood Venipuncture / Unknown 02/22/2025 5:30 AM [facility] [facility] 02/22/2025 5:43 AM [employer] Anette Nath MD HEMATOLOGY ORDERABLES Final Result [facility] CLIA # [id number] [address] [place] [address] [place] [address] * (ABNORMAL) COMPREHENSIVE METABOLIC PANEL (02/22/2025 5:30 AM [facility] [facility] [employer] [facility]) Only the most recent of7 resultswithin the time period is included. SODIUM 143 136 - 145 mmol/L 02/22/2025 6:22 AM [facility] POTASSIUM 3.2(L) 3.5 - 5.1 mmol/L 02/22/2025 6:22 AM [facility] CHLORIDE 106 98 - 107 mmol/L 02/22/2025 6:22 AM [facility] CO2 26 22 - 29 mmol/L 02/22/2025 6:22 AM [facility] CALCIUM 8.5(L) 8.8 - 10.2 mg/dL 02/22/2025 6:22 AM [facility] BUN 45(H) 8 - 23 mg/dL 02/22/2025 6:22 AM [facility] CREATININE 2.96(H) 0.67 - 1.17 mg/dL 02/22/2025 6:22 AM [facility] Comment:The GFR result is no t clinically significant on patients <18 or >70 years of age. GLUCOSE 114(H) 74 - 99 mg/dL 02/22/2025 6:22 AM [facility] TOTAL PROTEIN 6.2(L) 6.4 - 8.3 g/dL 02/22/2025 6:22 AM [facility] ALBUMIN 2.6(L) 3.5 - 5.2 g/dL 02/22/2025 6:22 AM [facility] BILIRUBIN TOTAL 0.4 0.0 - 1.0 mg/dL 02/22/2025 6:22 AM [facility] ALKALINE PHOSPHATASE 141(H) 40 - 129 U/L 02/22/2025 6:22 AM [facility] AST 20 10 - 50 U/L 02/22/2025 6:22 AM [facility] ALT 16 <=50 U/L 02/22/2025 6:22 AM [facility] GFR 21 mL/min/1. 73 sq meter 02/22/2025 6:22 AM [facility] Comment:eGFR calculated with 2020 CKD-EPI equation. Vegetarian diet, extremely high or low muscle mass, and may affect results. Cystatin C with Glomerular Filtration Rate is a suitable alternative for these patients. ANION GAP 11 9 - 20 mmol/L 02/22/2025 6:22 AM [facility] Blood Venipuncture / Unknown 02/22/2025 5:30 AM [facility] [facility] [employer] [facility] 02/22/2025 5:46 AM [employer] Anette Nath MD CHEMISTRY ORDERABLES F inal Result Performing Organization Address [facility]/ZIP Co de Phone Number [facility] CLIA # [id number] [address] [place] [address] * (ABNORMAL) IRON, TIBC, AND PERCENT SATURATION (02/21/2025 4:05 AM [employer]) IRON 48(L) 59 - 158 ug/dL 02/21/2025 11:47 AM [facility] TIBC 185(L) 250 - 450 ug/dL 02/21/2025 11:47 AM [facility] IRON % SATURATION 26 15 - 60 % 02/21/2025 11:47 AM [facility] Blood Venipuncture / Unknown 02/21/2025 4:05 AM [facility] [employer] 02/21/2025 4:17 AM [facility] [facility] Brett Lam MD CHEMISTRY ORDERABLES Final Re sult Performing Organization Address [facility] Co de Phone Number [facility] CLIA # [id number] [address] [address] * VANCOMYCIN LEVEL RANDOM (02/21/2025 4:05 AM [facility] [facility]) Only the most recent of8 resultswithin the time period is included. VANCOMYCIN, RANDOM 14.0 5.0 - 50.0 ug/mL 02/21/2025 4:49 AM [facility] Blood Venipuncture / Unknown 02/21/2025 4:05 AM [employer] [employer] [facility] 02/21/2025 4:17 AM [employer] Narrative [facility] - 02/21/2025 4:49 AM [facility] [facility] Vancomycin Therapeutic Ranges: Vancomycin Trough: 10 - 20 mcg/mL Vancomycin Peak: 25 - 50 mcg/mL Robbie Gould PA-C CHEMISTRY ORDERABLES Fin al Result [facility] CLMAGGIE # [id number] [address] [place] [address] [place] [address] * US ASPIRATION PLEURA RIGHT (02/20/2025 12:37 PM [employer]) Anatomical Region Laterality Modality Chest Ultrasound 02/20/2025 12:3 7 PM [employer] Impressions 02/20/2025 1:40 PM [employer] IMPRESSION: Please see below. Exam: US ASPIRATION PLEURA RIGHT Date/Time of Exam: 02/20/2025 12:37 PM Reason For Exam: Pleural Effusion. This procedure was performed and preliminary findings dictated by Giuseppe Mendes PA-C. Supervision and final interpretation by Dr. Casiano. CONSENT: Risks, benefits, and alternatives of the procedure were discussed with the patient. Specific risks of thoracentesis to include, but not limited to: bleeding, infection, pain, pneumothorax which might require placement of a chest tube or surgery to correct, damage to adjacent tissue/organs, and . The procedure may need to be repeated if the fluid sample obtained is non-diagnostic. Written informed consent was obtained from the patient. Procedure in Detail: A time out was performed to verify the patient and procedure. The patient was placed in a sitting position on the edge of the exam table, and ultrasound was utilized to evaluate the right thorax for largest pocket of free fluid. The area was marked, prepped, and draped in the usual sterile fashion. All elements of maximal sterile barrier technique, including hand hygiene and cutaneous antisepsis with an antisepsis agent, were used. Local anesthesia was achieved with 1% lidocaine overlying the proposed needle course. A 10 cm 5 [place]i NASOFORM centesis catheter was inserted and approximately 1050 ml of a clear, yellow pleural fluid was then removed via suction. The centesis catheter was removed in its entirety, the chlorhexidine cleansed from the skin, and a sterile dressing placed. The patient tolerated the procedure well without complications. A post procedural expiratory chest film will be ordered. Estimated Blood Loss: None Narrative Procedure Note Crystal Casiano MD - 02/20/2025 IMPRESSION: Please see below. Exam: US ASPIRATION PLEURA RIGHT Date/Time of Exam: 02/20/2025 12:37 PM Reason For Exam: Pleural Effusion. This procedure was performed and preliminary findings dictated by Giuseppe Mendes PA-C. Supervision and final interpretation by Dr. Casiano. CONSENT: Risks, benefits, and alternatives of the procedure were discussed with the patient. Specific risks of thoracentesis to include, but not limited to: bleeding, infection, pain, pneumothorax which might require placement of a chest tube or surgery to correct, damage to adjacent tissue/organs, and . The procedure may need to be repeated if the fluid sample obtained is non-diagnostic. Written informed consent was obtained from the patient. Procedure in Detail: A time out was performed to verify the patient and procedure. The patient was placed in a sitting position on the edge of the exam table, and ultrasound was utilized to evaluate the right thorax for largest pocket of free fluid. The area was marked, prepped, and draped in the usual sterile fashion. All elements of maximal sterile barrier technique, including hand hygiene and cutaneous antisepsis with an antisepsis agent, were used. Local anesthesia was achieved with 1% lidocaine overlying the proposed needle course. A 10 cm 5 [place] REVENUE.comeh centesis catheter was inserted and approximately 1050 ml of a clear, yellow pleural fluid was then removed via suction. The centesis catheter was removed in its entirety, the chlorhexidine cleansed from the skin, and a sterile dressing placed. The patient tolerated the procedure well without complications. A post procedural expiratory chest film will be ordered. Estimated Blood Loss: None us Anette Nath MD US ORDERABLES Final Result * CYTOLOGY, NON GYNE (02/20/2025 12:19 PM [employer] [facility] [employer]) CASE REPORT Medical Cytology Report Case: [id number] Authorizing Provider: Anette Nath, Collected: 02/20/2025 12:19 PM Ordering Location: [facility] Received: 02/21/2025 09:01 AM 4B Cardiac Pathologist: Jo-Ann Christensen MD Specimen: Pleural fluid, right 11:11 AM [facility] FINAL DIAGNOSIS A. Right pleural fluid, ThinPrep and cellblock - No malignant cells identified - Mesothelial cells, histiocytes, and neutrophils present Jo-Ann Christensen MD [id number] 11:11 AM [facility] at [address] [address] GROSS DESCRIPTION A. Right pleural fluid - 50 ml cloudy yellow fluid processed for ThinPrep and cell block A2. 11:11 AM [facility] CLINICAL INFORMATION No Dx found. 11:11 AM [facility] COMMENT The [employer] voice-activated dictation system may have been used in the creation of this report. Inherent to this system is the possibility of errors in syntax, grammar, punctuation, or other areas that could impact interpretation. If there are interpretive questions about the report, please contact the performing pathologist. Unless gross only is specified in the diagnosis, the microscopic examination substantiates the above cited diagnosis. The performance characteristics of all immunohistochemical stains cited in this report (if any) were determined by the Diagnostic Immunohistochemistry Laboratory of [facility] in compliance with CLIA'88 regulations. Some of these tests rely on the use of analyte specific reagents and are subject to specific labeling requirements by the FDA. All controls show appropriate reactivity. This testing was developed by the [facility] of [facility]. It has not been cleared or approved by the FDA. The FDA has determined that such clearance or approval is not necessary. 11:11 AM [facility] Body fluid PLEURAL FLUID SPECIMEN / Unknown Collection / Unknown 02/20/2025 12:19 PM [facility] [employer] [facility] 02/21/2025 9:01 AM [employer] us Anette Nath MD PATHOLOGY/CYTOLOGY ORD ERABLES Final Result [facility] CLIA # [id number] [address] [place] [address] * (ABNORMAL) PROTIME-INR (02/20/2025 9:48 AM [facility] [facility]) PROTIME 16.0(H) 12.7 - 14.9 Seconds 02/20/2025 10:45 AM [facility] [facility] [facility] INR 1.2 0.8 - 1.2 02/20/2025 10:45 AM [facility] Blood Venipuncture / Unknown 02/20/2025 9:48 AM [facility] [facility] [facility] 02/20/2025 10:25 AM [facility] [facility] [facility] Narrative [facility] - 02/20/2025 10:45 AM [facility] [facility] Expected Values for INR: DVT/PE Goal INR 2.5; range 2.0 - 3.0 Valve Replacement Tissue Goal INR 2.5; range 2.0 - 3.0 Valve Replacement Mechanical Goal INR 3.0; range 2.5 - 3.5 POST-UT Goal INR 2.5; range 2.0 - 3.0 or Goal INR 3.0; range 2.5 - 3.5 Atrial Fibrillation Goal INR 2.5; range 2.0 - 3.0 Ischemic Stroke Goal INR 2.5; range 2.0 - 3.0 Anette Nath MD HEMATOLOGY ORDERABLES Final Result [facility] CLIA # [id number] [facility] [address] * CT CHEST WO CONTRAST (02/20/2025 8:31 AM [facility] [facility] [facility]) Anatomical Region Laterality Modality Chest Computed Tomogra phy 02/20/2025 8:31 AM [facility] [facility] Impressions 02/20/2025 8:49 AM [facility] [facility] IMPRESSION: Please see below. Exam: Chest CT without IV contrast Date/Time of Exam: 02/20/2025 8:31 AM Reason For Exam: Pneumonia, complication suspected, xray done. Diagnosis: Acute ischemic stroke (CMS/HCC). Technique: Axial tomograms obtained through the thorax without IV contrast. Findings: Moderate right parahilar consolidation. Scattered multifocal ill-defined patchy groundglass opacities within remainder of of right upper and right lower lobe with partial atelectasis of right middle lobe. Mild mosaic groundglass haze of left lung with mild areas of atelectasis. Moderately large bilateral pleural effusions, right greater than left. No pneumothorax. No axillary lymphadenopathy. Mild mediastinal lymphadenopathy. Imaged upper abdomen without significant pathology. No concerning skeletal pathology. IMPRESSION: 1. Complex airspace disease within right lung including complex right parahilar consolidation with leading diagnostic consideration of inflammatory/infectious disease. 2. Moderately large bilateral pleural effusions, right greater than left. 3. Intrathoracic lymphadenopathy may be reactive in nature. Narrative Procedure Note Chelsi Jose MD - 02/20/2025 IMPRESSION: Please see below. Exam: Chest CT without IV contrast Date/Time of Exam: 02/20/2025 8:31 AM Reason For Exam: Pneumonia, complication suspected, xray done. Diagnosis: Acute ischemic stroke (CMS/HCC). Technique: Axial tomograms obtained through the thorax without IV contrast. Findings: Moderate right parahilar consolidation. Scattered multifocal ill-defined patchy groundglass opacities within remainder of of right upper and right lower lobe with partial atelectasis of right middle lobe. Mild mosaic groundglass haze of left lung with mild areas of atelectasis. Moderately large bilateral pleural effusions, right greater than left. No pneumothorax. No axillary lymphadenopathy. Mild mediastinal lymphadenopathy. Imaged upper abdomen without significant pathology. No concerning skeletal pathology. IMPRESSION: 1. Complex airspace disease within right lung including complex right parahilar consolidation with leading diagnostic consideration of inflammatory/infectious disease. 2. Moderately large bilateral pleural effusions, right greater than left. 3. Intrathoracic lymphadenopathy may be reactive in nature. Anette Nath MD CT ORDERABLES Final Result * LACTATE DEHYDROGENASE (02/20/2025 6:19 AM [facility] [facility]) LD (LACTATE DEHYDROGENASE) 189 135 - 225 U/L 02/20/2025 9:28 AM [facility] Blood Venipuncture / Unknown 02/20/2025 6:19 AM [employer] [employer] 02/20/2025 6:40 AM [facility] [facility] [facility] Anette Nath MD CHEMISTRY ORDERABLES F inal Result Performing Organization Address [facility] Co de Phone Number [facility] CLIA # [id number] [address] [address] [place] [address] * POC LACTIC ACID (02/19/2025 2:35 PM [facility] [facility]) Only the most recent of2 resultswithin the time period is included. Pathologist [facility] LACTIC ACID POC 1.6 <=2.0 mmol/L 02/19/2025 2:35 PM [employer] [facility] [facility] SPECIMEN SOURCE, GASES POC Venous 02/19/2025 2:35 PM [facility] SITE POC No Charge 02/19/2025 2:35 PM [employer] [employer] [facility] Blood 02/19/2025 2:35 PM [employer] [employer] 02/19/2025 2:37 PM [employer] [facility] Narrative [facility] - 02/19/2025 2:35 PM [facility] [facility] References ranges displayed are for Arterial samples. Anette Nath MD POINT OF CARE TESTING Final Result Performing Organization Address [facility] Co de Phone Number [facility] CLIA # [id number] [address] [id number] * (ABNORMAL) BLOOD GAS VENOUS (02/19/2025 2:35 PM [facility] [facility]) Pathologist [facility] PH BLOOD POC 7.32 7.32 - 7.43 02/19/2025 2:35 PM [facility] [facility] PCO2 POC 47 38 - 50 mm Hg 02/19/2025 2:35 PM [facility] PO2 POC 33 25 - 40 mm Hg 02/19/2025 2:35 PM [facility] HCO3 (CALC) POC 24 22 - 29 mmol/L 02/19/2025 2:35 PM [facility] HEMOGLOBIN POC 7.3(L) 12.0 - 18.0 g/dL 02/19/2025 2:35 PM [facility] BASE EXCESS POC -2 -2 - 3 mmol/L 02/19/2025 2:35 PM [facility] O2 SATURATION POC 58 40 - 70 % 02/19/2025 2:35 PM [facility] SODIUM POC 140 135 - 145 mmol/L 02/19/2025 2:35 PM [facility] POTASSIUM POC 3.8 3.5 - 4.9 mmol/L 02/19/2025 2:35 PM [facility] HEMATOCRIT POC 22(L) 38 - 51 % 02/19/2025 2:35 PM [facility] PH TEMP CORRECT 7.32 7.32 - 7.43 02/20/20 2:35 PM [facility] PCO2 TEMP CORRECT 47 38 - 50 mm Hg 02/19/2025 2:35 PM [facility] PO2 TEMP CORRECT 33 25 - 40 mm Hg 02/19/2025 2:35 PM [facility] SPECIMEN SOURCE, GASES POC Venous 02/19/2025 2:35 PM [facility] CALCIUM IONIZED POC 4.5(L) 4.8 - 5.2 mg/dL 02/19/2025 2:35 PM [facility] TCO2 (CALC) POC 26 22 - 26 mmol/L 02/19/2025 2:35 PM [facility] PUNC SITE POC No Charge 02/19/2025 2:35 PM [facility] PATIENT'S TEMPERATURE POC 37.0 degrees 02/19/2025 2:35 PM [facility] Blood, venous 02/19/2025 2:3 5 PM [facility] 02/19/2025 2:37 PM [facility] Anette Nath MD ABG ORDERABLES Final Result Performing Organization Address [facility] Co de Phone Number [facility] CLIA # [id number] [address] [address] [place] [address] * (ABNORMAL) BRAIN NATRIURETIC PEPTIDE, BNP OR PROBNP (02/19/2025 3:43 AM [facility]) PROBNP, N TERMINAL 13,731(H) 0 - 450 pg/mL 02/19/2025 7:50 AM [employer] [facility] Comment: INTERPRETIVE COMMENT based on diagnosis: Diagnostic NT pro-BNP cutoffs for Heart Failure in the absence of renal failure is suggested for the following ranges <75 years: <125 pg/mL >=75 years: <450 pg/mL Exclusionary rule out cut-point for Acute Decompensated Heart Failure(ADHF) All ages: <300 pg/mL Diagnostic NT pro-BNP cutoffs for Acute Decompensated Heart Failure(ADHF) in the absence of renal failure is suggested for the following ages <50 years: > 450 pg/mL 50-75 years: > 900 pg/mL >75 years: >1800 pg/mL Blood Venipuncture / Unknown 02/19/2025 3:43 AM [facility] [employer] 02/19/2025 4:01 AM [facility] Anette Nath MD CHEMISTRY ORDERABLES F inal Result Performing Organization Address [facility]/ZIP Co de Phone Number [facility] CLIA # [id number] [address] [phone] * (ABNORMAL) BLOOD GAS ARTERIAL (02/19/2025 12:02 AM [facility]) Only the most recent of2 resultswithin the time period is included. PH BLOOD POC 7.34(L) 7.35 - 7.45 02/19/2025 12:02 AM [facility] [facility] [employer] [facility] PCO2 POC 47(H) 35 - 45 mm Hg 02/19/2025 12:02 AM [facility] PO2 POC 81 80 - 105 mm Hg 02/19/2025 12:02 AM [facility] HCO3 (CALC) POC 25 22 - 26 mmol/L 02/19/2025 12:02 AM [facility] HEMOGLOBIN POC 7.3(L) 12.0 - 18.0 g/dL 02/19/2025 12:02 AM [facility] BASE EXCESS POC 0 -2 - 3 mmol/L 02/19/2025 12:02 AM [facility] O2 SATURATION POC 97 95 - 98 % 12:02 AM [facility] SODIUM POC 135(L) 138 - 146 mmol/L 02/19/2025 12:02 AM [facility] POTASSIUM POC 4.2 3.5 - 4.9 mmol/L 02/19/2025 12:02 AM [facility] HEMATOCRIT POC 22(L) 38 - 51 % 02/19/2025 12:02 AM [facility] PH TEMP CORRECT 7.34(L) 7.35 - 7.45 02/19/2025 12:02 AM [facility] PCO2 TEMP CORRECT 47(H) 35 - 45 mm Hg 02/19/2025 12:02 AM [facility] PO2 TEMP CORRECT 81 80 - 105 mm Hg 02/19/2025 12:02 AM [facility] SPECIMEN SOURCE, GASES POC Arterial 02/19/2025 12:02 AM [facility] CALCIUM IONIZED POC 5.0 4.8 - 5.2 mg/dL 02/19/2025 12:02 AM [facility] TCO2 (CALC) POC 27 23 - 27 mmol/L 02/19/2025 12:02 AM [facility] EPAP POC 8 02/19/2025 12:02 AM [facility] FIO2 30.0 21.0 - 100.0 % 02/19/2025 12:02 AM [facility] Comment:FIO2 values reported <21.0 indicate O2 flow in Liters/minute. Values >/= 21.0 indicate percent O2. P/F RATIO POC 270 02/19/2025 12:02 AM [facility] [employer] [facility] Comment: P/F Ratio Interpretation ARDS SEVERITY PaO2/FiO2 Mild 200-300 Moderate 100-200 Severe <100 IPAP POC 16 02/19/2025 12:02 AM [employer] [facility] [employer] [facility] PUNC SITE POC ART PUNC 02/19/2025 12:02 AM [facility] PATIENT'S TEMPERATURE POC 37.0 degrees 02/19/2025 12:02 AM [facility] [employer] Blood, arterial 02/19/2025 1 2:02 AM [facility] 02/19/2025 12:03 AM [facility] [employer] Anette Nath MD ABG ORDERABLES Final Result [facility] CLIA # [id number] [address] [place] [address] * XR ABDOMEN 1 VW (02/18/2025 6:36 PM [facility]) Anatomical Region Laterality Modality Abdomen Computed Radiogr aphy 02/18/2025 6:36 PM [facility] Impressions 02/18/2025 7:20 PM [facility] Impression: No evidence of ileus or small bowel obstruction. Narrative 02/18/2025 7:20 PM [facility] Exam: XR ABDOMEN 1 VW Date/Time of Exam: 02/18/2025 6:36 PM Reason For Exam: Constipation Diagnosis: See Reason for Exam AP views of the abdomen are submitted. Air-filled, nondilated loops of large and small bowel are present which show a normal gas pattern. Procedure Note Cj Hoover MD - 02/18/2025 Exam: XR ABDOMEN 1 VW Date/Time of Exam: 02/18/2025 6:36 PM Reason For Exam: Constipation Diagnosis: See Reason for Exam AP views of the abdomen are submitted. Air-filled, nondilated loops of large and small bowel are present which show a normal gas pattern. Impression: No evidence of ileus or small bowel obstruction. Anette Nath MD DIAGNOSTIC IMAGING ORD ERABLES Final Result * PATHOLOGY (02/16/2025 8:23 AM [facility]) CASE REPORT Surgical Pathology Report Case: [id number] Authorizing Provider: Fiona Barton MD Collected: 02/16/2025 08:23 AM Ordering Location: [facility] Received: 02/17/2025 08:13 AM Operating Room Pathologist: Alberto Dave MD Specimen: Leg, right, below knee amputation 1:38 PM [facility] [employer] [facility] FINAL DIAGNOSIS A. 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 Received fresh labeled Tim -right below-knee amputation is a 36.5 x 27.9 x 8.5 cm right leg below the knee amputation consisting of all 5 digits. The posterior calcaneus is remarkable for a 4.0 x 3.7 cm purulent, necrotic ulceration. The underlying bone is red-brown, hemorrhagic and softened. The remaining skin is rodriguez-pink and smooth and the proximal margin is red-brown, beefy and viable. The vessels at the proximal margin are sectioned to show a calcified cut surface that is occluding approximately 75% of the vessel lumen. 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 Inherent to this system is the possibility of errors in syntax, grammar, punctuation, or other areas that could impact interpretation. If there are interpretive questions about the report, please contact the performing pathologist. Unless gross only is specified in the diagnosis, the microscopic examination substantiates the above cited diagnosis. The performance characteristics of all immunohistochemical stains cited in this report (if any) were determined by the Diagnostic Immunohistochemistry Laboratory of [facility] in compliance with CLIA'88 regulations. Some of these tests rely on the use of analyte specific reagents and are subject to specific labeling requirements by the FDA. All controls show appropriate reactivity. This testing was developed by the [facility]ohist[facility] of [facility]. It has not been cleared or approved by the FDA. The FDA has determined that such clearance or approval is not necessary. 5 1:38 PM [facility] Tissue (Leg, right) Collection / Unknown 02/16/2025 8:23 AM [facility] 02/17/2025 8:13 AM [facility] Comment:Right below knee amp utation us Fiona Barton MD PATHOLOGY/CYTOLOGY ORDERAB LES Final Result [id number] [address] [place] [address] * MA ANES INSERT ENDOTRACHEAL AIRWAY (02/16/2025 7:52 AM [facility]) Narrative Michael Rodriguez AA-C - 02/16/2025 7:52 AM [facility] [employer] Michael Rodriguez AA-C 02/16/2025 8:11 AM Airway Date/Time: 02/16/2025 7:52 AM Location: OR Plan: routine intubation Patient Identity Confirmed by: Verbally with patient and armband Airway: not difficult Staffing Performed: GRILL ATTENDANT/CAA Authorized by: Amari Fletcher MD Performed by: Aroda, Michael H, AA-C Indications and Patient Condition: Indications for Airway Management: Anesthesia Sedation Level: general anesthesia Preoxygenated: yes Patient Position: Sniffing Mask Difficulty Assessment: 0 - not attempted Plan to extubate at end of case: Yes Final Airway Details: Final Airway Type: Endotracheal airway ETT Cuffed: Yes Technique Used for Successful ETT Placement: Video laryngoscopy Devices/Methods Used in Placement: Cricoid pressure Blade Size: 4 Insertion Site: Oral ETT Size (mm): 8.0 Video Laryngoscopy Devices: Peacock Measured from: Teeth ETT to Teeth (cm): 24 Tube secured with: Tape Placement Verified by: auscultation, end tidal CO2 and chest rise Cormack-Lehane Classification: Grade I - full view of glottis Number of Attempts at Approach: 1 Additional Procedure Information: atraumatic and dentition unchanged us Amari Fletcher MD PROCEDURE/MINOR SURGICAL ORDER KATHERINE Final Result * US TRANSCUTANEOUS OXYGEN FER MULTI (02/15/2025 2:46 PM [facility]) Anatomical Region Laterality Modality Lower Extremity Ultrasound 02/15/2025 2:32 PM [facility] Narrative 02/22/2025 10:13 AM [facility] Noninvasive Vascular Laboratory [address] [place] [address] Noninvasive Vascular Lab Transcutaneous Oxygen Measurements Lower Extremity Patient: Andrés Dumont Study ID: US TRANSCUTANEOU Gender: M : 1945 Age: 79 Room: [facility] Height: Weight: BSA: Pt status: Inpatient Study Date: 02/15/2025 Study Time: 02:32:05 PM BSA: Ordering: Jhon Chavez Interpreting:Ross Stoll Disability Aide: ALLY Indications: Pre op. Summary Impression: See measurements below. Study data: Right lower extremity transcutaneous oxygen measurements. Location: Bedside. Patient status: Inpatient. Study status: Routine. TCp02 measurements - Right - Distal Calf 21mm Hg (Room air) 79mm Hg (100% 02) - Mid Calf 27mm Hg (Room air) 50mm Hg (100% 02) - Prox Calf 47mm Hg (Room air) 142mm Hg (100% 02) - Distal Thigh 44mm Hg (Room air) 109mm Hg (100% 02) - Mid Thigh 44mm Hg (Room air) 107mm Hg (100% 02) - Prox Thigh 35mm Hg (Room air) 117mm Hg (100% 02) [facility] Lab is accredited with the Intersocietal Commission for the Accreditation of Vascular Laboratories (ICAVL) Prepared and Electronically Authenticated Ross Stoll Confirmed 02/22/2025 10:13 Procedure Note Ross Stoll MD - 02/22/2025 [facility] Noninvasive Vascular Laboratory [address] [place] [address] Noninvasive Vascular Lab Transcutaneous Oxygen Measurements Lower Extremity Patient: Andrés Dumont Study ID: US TRANSCUTANEOU Gender: [place] : 1945 Age: 79 Room: [facility] Height: Weight: BSA: Pt status: Inpatient Study Date: 02/15/2025 Study Time: 02:32:05 PM BSA: Ordering: Jhon Chavez Interpreting:Ross Stoll Disability Aide: ALLY Indications: Pre op. Summary Impression: See measurements below. Study data: Right lower extremity transcutaneous oxygen measurements. Location: Bedside. Patient status: Inpatient. Study status:Routine. TCp02 measurements - Right - Distal Calf 21mm Hg (Room air) 79mm Hg (100% 02) - Mid Calf 27mm Hg (Room air) 50mm Hg (100% 02) - Prox Calf 47mm Hg (Room air) 142mm Hg (100% 02) - Distal Thigh 44mm Hg (Room air) 109mm Hg (100% 02) - Mid Thigh 44mm Hg (Room air) 107mm Hg (100% 02) - Prox Thigh 35mm Hg (Room air) 117mm Hg (100% 02) [facility] is accredited with theIntersocietal Commission for the Accreditation of Vascular Laboratories (ICAVL) Prepared and Electronically Authenticated Ross Stoll Confirmed 02/22/2025 10:13 us Robbie Gould PA-C US ORDERABLES Final Re sult * MRI ANKLE WO CONTRAST RIGHT (02/13/2025 9:59 PM [facility]) Anatomical Region Laterality Modality Ankle / Foot Magnetic Resonan ce 02/13/2025 9:59 PM [facility] Impressions 02/14/2025 7:03 AM [facility] IMPRESSION: Please see below. Exam: MRI ANKLE WO CONTRAST RIGHT Date/Time of Exam: 02/13/2025 9:59 PM Reason For Exam: Foot swelling, diabetic, osteomyelitis suspected, xray done. Diagnosis: See Reason for Exam. Technique: MRI of the right ankle was performed without the administration of intravenous contrast. Comparison: None. Findings: The exam is degraded by motion artifact. Soft tissue ulcer is seen along the posterior aspect of the heel. There is hyperintense T1 signal involving the posterior lateral aspect of the heel with hyperintense T2 signal concerning for acute osteomyelitis. There is surrounding T2 signal abnormality in the subcutaneous tissue. There is no fluid collection. There is at least high-grade partial-thickness tear involving the distal Achilles tendon with surrounding edema. The marrow signal is otherwise preserved. There is a tibiotalar joint effusion. There is atrophy throughout the intrinsic musculature of the foot. Abnormal signal and morphology of the anterior talofibular ligament compatible with chronic sprain. No full-thickness tearing of the flexor, extensor and peroneal tendons. The visualized talar dome appears intact. IMPRESSION: 1. Limited exam secondary to extensive motion artifacts. 2. Acute osteomyelitis involving the posterior lateral aspect of the heel with adjacent soft tissue wound and cellulitis. 3. At least high-grade partial-thickness tearing of the distal Achilles tendon. Narrative Procedure Note Daniel Oconnor MD - 02/14/2025 IMPRESSION: Please see below. Exam: MRI ANKLE WO CONTRAST RIGHT Date/Time of Exam: 02/13/2025 9:59 PM Reason For Exam: Foot swelling, diabetic, osteomyelitis suspected, xray done. Diagnosis: See Reason for Exam. Technique: MRI of the right ankle was performed without the administration of intravenous contrast. Comparison: None. Findings: The exam is degraded by motion artifact. Soft tissue ulcer is seen along the posterior aspect of the heel. There is hyperintense T1 signal involving the posterior lateral aspect of the heel with hyperintense T2 signal concerning for acute osteomyelitis. There is surrounding T2 signal abnormality in the subcutaneous tissue. There is no fluid collection. There is at least high-grade partial-thickness tear involving the distal Achilles tendon with surrounding edema. The marrow signal is otherwise preserved. There is a tibiotalar joint effusion. There is atrophy throughout the intrinsic musculature of the foot. Abnormal signal and morphology of the anterior talofibular ligament compatible with chronic sprain. No full-thickness tearing of the flexor, extensor and peroneal tendons. The visualized talar dome appears intact. IMPRESSION: 1. Limited exam secondary to extensive motion artifacts. 2. Acute osteomyelitis involving the posterior lateral aspect of the heel with adjacent soft tissue wound and cellulitis. 3. At least high-grade partial-thickness tearing of the distal Achilles tendon. us Mary Houston MD MR ORDERABLES Final Re sult * US DUPLEX ARTERIAL LEG RIGHT (02/13/2025 8:58 AM [facility]) Anatomical Region Laterality Modality Lower Extremity Ultrasound 02/13/2025 7:25 AM [facility] Narrative 02/13/2025 9:03 AM [facility] Cardiovascular Services Noninvasive Vascular Laboratory [address] [place] [address] Noninvasive Vascular Lab Limited Lower Extremity Arterial Duplex Study Patient: Andrés Dumont Study ID: US DUPLEX ARTERI Gender: M : 1945 Age: 79 Room: [facility] Height: 188cm Weight: 121.1kg BSA: 2.55m^2 Pt status: Inpatient Study Date: 02/13/2025 Study Time: 07:25:19 AM BSA: 2.55m^2 Ordering: Alberto Martinez Interpreting:Nate Souza Disability Aide: ALLY Indications: Leg ulcer. History: Ulcers of the right lower extremity. Risk factors: Hypertension. Diabetes mellitus. Summary Impression: 1. Study demonstrates mild atherosclerosis, involving the right lower extremity. 2. LURDES's artificially elevated due to medial calcinosis. Study data: Limited lower extremity arterial duplex study. Ankle-brachial index. Height: 188cm. Height: 74in. Weight: 121.1kg. Weight: 267lb. BMI: 34.3kg/m^2. BSA: 2.55m^2. Location: Bedside. Patient status: Inpatient. Study status: Routine. Procedure: A vascular evaluation was performed with the patient in the supine position. Imaged vessel(s): the right common femoral, right deep femoral, right femoral, right popliteal, right anterior tibial, right posterior tibial, and right dorsal pedal arteries. Image quality was fair. The study was technically limited due to acoustic shadowing. Arterial flow: - Right common femoral: Right common femoral 1.82m/sec Triphasic - Right deep femoral: Right deep femoral 1.04m/sec Triphasic - Right femoral proximal: Right femoral proximal 1.33m/sec Triphasic - Right femoral mid: Right femoral mid 1.07m/sec Triphasic - Right femoral distal: Right femoral distal 0.7m/sec Triphasic - Right popliteal proximal: Right popliteal proximal 0.89m/sec Triphasic - Right anterior tibial distal: Right anterior tibial distal 0.45m/sec Multiphasic - Right posterior tibial distal: Right posterior tibial distal 1.04m/sec Multiphasic - Right peroneal distal: Right peroneal distal 0.93m/sec Multiphasic [facility] is accredited with the Intersocietal Commission for the Accreditation of Vascular Laboratories (ICAVL) Prepared and Electronically Authenticated Nate Souza Confirmed 02/13/2025 09:02 Procedure Note Nate Souza MD - 02/13/2025 [facility] Noninvasive Vascular Laboratory [address] [place] [address] Noninvasive Vascular Lab Limited Lower Extremity Arterial Duplex Study Patient: Andrés Dumont Study ID: US DUPLEX ARTERI Gender: M : 1945 Age: 79 Room: 7167 Height: 188cm Weight: 121.1kg BSA: 2.55m^2 Pt status: Inpatient Study Date: 02/13/2025 Study Time: 07:25:19 AM BSA: 2.55m^2 Ordering: Alberto Martinez Interpreting:Nate Souza Disability Aide: ALLY Indications: Leg ulcer. History: Ulcers of the right lower extremity. Risk factors:Hypertension. Diabetes mellitus. Summary Impression: 1. Study demonstrates mild atherosclerosis, involving the right lower extremity. 2. LURDES's artificially elevated due to medial calcinosis. Study data: Limited lower extremity arterial duplex study.Ankle-brachial index. Height: 188cm. Height: 74in. Weight: 121.1kg. Weight:267lb. BMI: 34.3kg/m^2. BSA: 2.55m^2. Location: Bedside. Patientstatus: Inpatient. Study status: Routine. Procedure: A vascular evaluationwas performed with the patient in the supine position. Imaged vessel(s): theright common femoral, right deep femoral, right femoral, right popliteal,right anterior tibial, right posterior tibial, and right dorsal pedalarteries. Image quality was fair. The study was technically limited due toacoustic shadowing. Arterial flow: - Right common femoral: Right common femoral 1.82m/sec Triphasic - Right deep femoral: Right deep femoral 1.04m/sec Triphasic - Right femoral proximal: Right femoral proximal 1.33m/sec Triphasic - Right femoral mid: Right femoral mid 1.07m/sec Triphasic - Right femoral distal: Right femoral distal 0.7m/sec Triphasic - Right popliteal proximal: Right popliteal proximal 0.89m/sec Triphasic - Right anterior tibial distal: Right anterior tibial distal 0.45m/sec Multiphasic - Right posterior tibial distal: Right posterior tibial distal 1.04m/sec Multiphasic - Right peroneal distal: Right peroneal distal 0.93m/sec Multiphasic [facility] is accredited with theIntersocietal Commission for the Accreditation of Vascular Laboratories (ICAVL) Prepared and Electronically Authenticated Nate Souza Confirmed 02/13/2025 09:02 us Alberto Martinez MD ORDERABLES Final Result * (ABNORMAL) HEMOGLOBIN A1C (06/12/2024 7:23 AM CDT) HEMOGLOBIN A1C 7.5(H) <=5.6 % 06/13/2024 12:03 PM CDT [facility] EST. AVG GLUCOSE, A1C 169 mg/dL 06/13/2024 12:03 PM CDT [facility] Blood Venipuncture / Unknown 06/12/2024 7:23 AM CDT 06/12/2024 7:57 AM CDT [facility] - 06/13/2024 12:03 PM CDT HGB A1C INTERPRETATION NORMAL: <5.7% PRE-DIABETES: 5.7 - 6.4% DIABETES: 6.5% OR GREATER Alirio Mckenzie MD CHEMISTRY ORDERABLES Final R esult [facility] CLIA # [id number] [address] [place] [address] * (ABNORMAL) LIPID PANEL (06/12/2024 7:23 AM CDT) Pathologist [facility] CHOLESTEROL 89 <200 mg/dL 06/12/2024 10:40 AM CDT [facility] TRIGLYCERIDE 101 <150 mg/dL 06/12/2024 10:40 AM CDT [facility] HDL 34(L) 40 - 59 mg/dL 06/12/2024 10:40 AM CDT [facility] LDL CALCULATED 35 <100 mg/dL 06/12/2024 10:40 AM CDT [facility] NON-HDL CHOLESTEROL 55 <130 mg/dL 06/12/2024 10:40 AM CDT [facility] Blood Venipuncture / Unknown 06/12/2024 7:23 AM CDT 06/12/2024 7:57 AM CDT [facility] - 06/12/2024 10:40 AM CDT TOTAL CHOLESTEROL [...] Mckenzie MD CHEMISTRY ORDERABLES Final R esult [id number] [facility] [address] from Last 3 Months or Most Recently Relevant to Health Maintenance Insurance MEDICARE PART A AND B [employer] INS SUPP ALESSIO RODGERS [id number] Advance Directives For more information, please contact: [phone] Documents on File Type Date Recorded Patient Exterminator Helper Expl anation Advance Directive POA 02/27/2025 9:02 AM A dvance Directive POA Advance Directive POA 02/20/2025 9:54 AM A dvance Directive POA Advance Directive POA 08/10/2024 8:19 AM A dvance Directive POA Advance Directive POA 11/13/2023 12:39 PM Advance Directive POA * Full Code (Latest Code Status on File) Date Activated Date Inactivated Comments 02/16/2025 7:19 AM 02/24/2025 3:49 PM * Full Code Date Activated Date Inactivated Comments 02/12/2025 6:22 PM 02/16/2025 7:19 AM * Full Code Date Activated Date Inactivated Comments 07/30/2024 7:27 PM 08/06/2024 4:06 PM * Full Code Date Activated Date Inactivated Comments 06/11/2024 9:35 PM 06/16/2024 5:22 PM * Full Code Date Activated Date Inactivated Comments 11/13/2023 12:33 PM 11/14/2023 4:19 PM
--- OUTSIDE RECORDS SUMMARY | 2025-03-04 17:59 | XMS_ITS | Continuity of Care Document ---
Author Organization [facility], [facility], [facility] ([facility]) Address [address] [place] [address] Care Team Providers Care Supervisor Cigarette Making Department Name Role Phone CHA JONES Primary Care [...] By Organization Details Last Modified Time 12/22/2024 [id number] seen in ER for pneumonia, tx wtih doxy and prednisone. Breathing improved. Edema improving. Not available 12/22/2024 12:47:24 Reason for Referral None Reported. 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 Goodman Delmy jeter [facility], L.LLaura 5 07:56:23 Type 2 diabetes mellitus 91691223 Active 2022 ELVIA jeter [facility], L.L.CJose Antonio 3 11:57:16 Hypercho lesterol emia 85602873 Active 2022 Delmy jeter [facility], L.LLaura 5 07:56:23 Ulcer of toe 637129706 Active 2022 Cha Jones, [address] [place] [address], [address] , [facility], HanselCJose Antonio 3 09:38:37 [facility] hyperten sai 02548483 Active 2022 Delmy jeter, [facility], [place] Antonio 5 07:56:23 Atrial fibrilla tion 88276182 Active 2023 Delmy jeter, [facility], [place]elCJose Antonio 5 07:55:39 Age related macular degenera tion 842371654 Active 2023 Delmy jeter, [facility], [place] Antonio 5 07:55:35 Congesti ve heart failure 13434400 Active 2023 Delmy jeter, [facility], [place].C[place] Antonio 5 07:55:51 Chronic kidney disease stage 3B 781500638 Active 2023 Delmy jeter, [facility], [place].CJose Antonio 5 07:55:45 Edema of lower extremit y 358503751 Active 2023 Delmy jeter [facility], [place] 5 07:56:23 Acute bronchit is 63645004 Completed 202306/21/2024 Delmy jeter, [facility], [place].CJose Antonio 5 07:55:32 Hypokale jerica 81476227 Active 2023 Delmy jeter [facility], [place]aria[place].CJose Antonio 5 07:56:23 Pain of bilatera l hip joints 49327701068 870852 Active 2023 Delmy jeter, [facility] 5 07:55:42 Gastroes ophageal reflux disease 550513623 Active 2023 Delmy jeter, [facility] 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 5 07:56:23 Abnormal gait due to muscle weakness 778219133 [facility] 20[facility] 5 07:56:23 Right carotid artery stenosis 09479850481 9100 Active 2024 [facility] 5 11:28:49 Chronic bronchit is 97962015 Active 2024 Delmyisabell Mariscal [facility] 5 11:28:47 Primary biliary cholangi tis 29259055 Active 2024 Cha Jones, DO [address] [place] [address], [address] , [facility] 5 11:27:33 Difficul ty sleeping 304297072 [facility] 20[facility] 5 17:35:55 Closed fracture of hip 637386275 Active 20[facility] 16:41:22 Bilatera l lower limb edema 041588419 Active 2024 [facility] 12:49:21 Pneumoni a 298022269 Active 20[facility] 12:47:01 Post-dis charge follow-u p 248414381 Active 20[facility] 14:47:51 Acute exacerba tion of chronic congesti ve heart failure 721199543 Active 20[facility] 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 14:47:53 Obstruct victorina sleep apnea syndrome 19468853 [facility] 20[facility] 14:47:56 Chronic atrial fibrilla tion 423328216 Active 2024 [facility] 14:47:57 Chronic kidney disease stage 3A 236905374 Active 2024 [facility] 14:47:59 Notes:Some problems listed i n Documents: #[id number], #[id number], #[id number], #[id number] could not be added to this patient's chart. Please review these documents and add these problems to the patient's chart manually as needed. Problem Notes None recorded. Procedures Surgical History Date Name Laterality Status Provider Name and Address Organization Details Recorded Time tonsillectomy completed ALEXIA BURCIAGA [facility], [place] 05/25/2024 11:58:08 Cholecystectomy completed ALEXIA BURCIAGA [facility], [place] 05/25/2024 11:58:14 Imaging Results None recorded. Procedure Notes None recorded. Medical Equipment None Reported. Allergies Allergen ID Allergen Name Allergen Category Reaction Reaction Severity Criticality Documentation Date Start Date Code Code System Note Provider Name and Address Organization Details Recorded Time 59 lovastati n medicatio n Not available Not available Not available 06/06/2022 6472 RxNorm Sondra Quick steffany [facility] [place] 12:00:13 82931 Product containin g 3-hydroxy -3-methyl glutaryl- coenzyme A reductase inhibitor (product) medicatio n itching Not available low 02/03/20252022 61811 009 SNOMED Not Available [place] - External Data Service - prod 18:04:07 Medications Name Sig Start Date Stop Date Status Note LastModified by Organization Details LastModified Time Prescript ion - New 09/22 completed Not Available Not Available Not Available Prescript ion - Prior Authoriza tion Request active [place] 5/325 Not Available Not Available Not Available [...] Not Available loratadin e daily 12/24 completed 10242; Recorded 10/16/19 22 2:59PM by Elvia Singh (Authori michelle through Cha Jones DO), Office Visit; Not Available Not Available Not Available Lasix every morning 12/24 completed DM/sd; 22059; Recorded 12/12/19 1:18PM by Elvia Singh (Authori michelle through Cha Jones DO), Refill Request; Refill Quantity : 30; Tablet; Not Available Not Available Not Available fluconazo le daily 12/24 completed 0; Recorded 06/04/19 23 11:43AM by Pina Smart, Office Visit; Not Available Not Available Not Available carvedilo l two times daily 12/24 completed 41445; Recorded 02/26/20 22 11:07AM by Pina Smart (Authorpasquale martinez through Cha Jones DO), Office Visit; Refill Quantity : 60; Tablet; Not Available Not Available Not Available hydralazi ne three times daily 12/24 completed DM/sd; 40442; Recorded 01/22/20 22 10:41AM by Rafiq Medellin (Authori zed through Cha Jones , DO), Office Visit; Refill Quantity : 0; Not Available Not Available Not Available lisinopri l daily 12/24 completed 47039; Recorded 11/13/19 9:23AM by Rafiq Medellin (Authori zezack through Yeelion , DO), Office Visit; Refill Quantity : 90; Tablet; Not Available Not Available Not Available sildenafi l daily 12/24 completed 28838; Recorded 10/16/19 2:59PM by Elvia Singh (Authori michelle through Yeelion , DO), Office Visit; Not Available Not Available Not Available glipizide daily 12/24 completed 29994; Recorded 11/13/19 9:23AM by Rafiq Medellin (Authori michelle through Yeelion , DO), Office Visit; Not Available Not Available Not Available multivita min active Not Available Not Available Not Available Potassium Chloride ER two times daily 12/24 completed DM/sd; 29500; Recorded 03/27/19 1:52PM by Elvia Singh (Authori michelle through Yeelion , DO), Annotati on/Adden dum; Refill Quantity [...] Available Eliquis two times daily 12/24 completed 92304; Recorded 11/13/19 9:23AM by Rafiq Medellin (Authori michelle through [employer] , DO), Office Visit; Refill Quantity : 60; Tablet; Not Available Not Available Not Available potassium chloride ER 20 mEq tablet,ex tended release Take 1 tablet every day by oral route. 06/21 completed Not Available Not Available Not Available FreeStyle Kalani 2 Sensor as directed 05/25 completed Not Available Not Available Not Available FreeStyle Kalani 2 [place] as directed 05/25 completed Not Available Not [...] [degF] 97 % 165/70 mm[Hg] ERIC JARAMILLO [facility] 12:45:04 Social History Question Answer Notes LastModified by [employer] ion Details LastModified Time Tobacco Smoking Status Former Smoker Edvin Jordan steffany [facility] 10/05/2023 09:45:48 What Is Your Level Of Caffeine Consumption? Moderate Coffee [email or web address] Information not available 05/25/2024 How Many Years Have You Smoked Tobacco? 20 [email or web address] Information not available 10/05/2023 Sex: Unknown Functional Status Question Answer Note LastModified by Organizat ion Details LastModified Time Do you use any illicit or recreational drugs? No [email or web address] Information not available 08/14/2022 Do you or have you ever used any other forms of tobacco or nicotine? No [email or web address] Information not available 08/14/2022 What is your level of alcohol consumption? None [email or web address] Information not available 08/14/2022 Are you currently employed? No Information not available 05/25/2024 Are you able to walk independently without assistance or assistive devices? YESASSIST walker [email or web address] Information not available 05/25/2024 Are you able to care for yourself independently? Yes [email or web address] Information not available 05/25/2024 Mental Status None recorded. Family History Relationship Description Onset Age of this Age Resolved Age Notes LastModified by Organization Details LastModified Time Father Diabetes mellitus [email or web address] Not available 05/25 11:55:50 Father Motor vehicle accident age 50 [email or web address] Not available 05/25/2024 11:56:43 Mother Malignant neoplasm of colon age 73 [email or web address] Not available 05/25/2024 11:56:22 Paternal Grandmother Natural age 102 [email or web address] Not available 05/25/2024 11:57:08 Medical History Condition Response Coronary Artery Disease N Other Y Gout N Kidney Stones N Blood Diseases N Hyperthyroidism N Blood Transfusion N COPD N Depression N Anxiety Disorder N Muscle, Joint, or Bone Problems N Vision or Eye Problems N Arthritis N Infertility N Polyps N Cancer N Stroke N Varicosities N Fibromyalgia N Headaches N Kidney Disease Y Heart Problems Y Ear or Hearing Problems N Hospitalizations N Skin Problems Y Eating Disorder N Constipation N Tuberculosis N Asthma N Hepatitis N Pulmonary Embolism N Chronic Ear Infections N Chicken Pox N Autism Spectrum Disorder (ASD) N Thrombophilias N Breast Cancer N Hypothyroidism N Lung Disease N Defects or Inherited Disease N Developmental or Behavioral Disorders N Breast Problem N Difficulty Swallowing N Anesthesia Complications N Meniere's disease N Endometriosis N Bladder or Kidney Problems N High Cholesterol Y Liver Disease N Allergies/Hayfever N Thyroid Problems N GI Problems N ADD/ADHD N Anemia N Mental Illness N Ovarian Cancer N Diabetes Y Bedwetting N Seizures/Epilepsy N Eczema N Diverticulitis N Abuse/Domestic Violence N Reflux/GERD N Heart Disease N Pre-Eclampsia N Hypertension Y Osteoporosis N Immunizations Vaccine Type Date Status Note Provider Nam e and Address Organization Details Recorded Time zoster recombinant completed Cha Jones DO [address] [place] [address], [phone], [facility], [place]elCJose Antonio 04/22/2023 11:34:44 zoster recombinant 2 completed Cha Jones DO [address] [place] [address], [address], [facility] 04/22/2023 11:34:44 Influenza, high-dose, quadrivalent, PF 2 completed Cha Jones [address], [address], [facility] 04/22/2023 11:34:45 COVID-19, mRNA, LNP-S, PF, 100 mcg/0.5mL dose or 50 mcg/0.25mL dose 1 completed Cha Jones DO [address] [place] [address], [address], [facility] 04/22/2023 11:34:45 COVID-19, mRNA, LNP-S, PF, 100 mcg/0.5mL dose or 50 mcg/0.25mL dose 1 completed Cha Jones DO [address] [place] [address], [phone], [facility] 04/22/2023 11:34:45 COVID-19, mRNA, LNP-S, PF, 100 mcg/0.5mL dose or 50 mcg/0.25mL dose 1 completed Cha Jones DO [address] [place] [address], [address], [facility] 04/22/2023 11:34:45 COVID-19, mRNA, LNP-S, bivalent, PF, 50 mcg/0.5 mL or 25mcg/0.25 mL dose 2 completed Cha Jones DO [address] [place] [address], [phone], [facility] 04/22/2023 11:34:45 pneumococcal polysaccharide PPV23 8 completed Cha Jones DO [address] [place], [address], [facility] 04/22/2023 11:34:45 Pneumococcal conjugate PCV 13 9 completed Cha Jones DO [address] [place] [address], [address], [facility] 04/22/2023 11:34:45 Influenza, high-dose, quadrivalent, PF 3 completed Delmy jeter, [facility] 06/21/2024 09:00:08 COVID-19, mRNA, LNP-S, PF, 50 mcg/0.5 mL 3 completed Delmy jeter, [facility] 06/21/2024 09:00:08 Pneumococcal conjugate PCV20, polysaccharide VKT946 conjugate, adjuvant, PF 4 completed Cha Jones DO [address] [place] [address], [address], [facility] 04/23/2023 08:45:56 Influenza, split virus, trivalent, PF 4 completed PINA jeter, [facility] 12/28/2023 11:39:19 Past Encounters Encounter ID Performer Location Encounter Start Date Encounter Closed Date Diagnosis/Indication Diagnosis SNOMED-CT Code Diagnosis ICD10 Code Diagnosis IMO Codes Diagnosis Note [id number] Juancarlos Lassiter DO [facility] ([facility]) [address] [place] [phone] 12/01/2024 11:46:53 12/06/2024 10:05:32 Edema of lower extremity 929545829 R60.0 Type 2 ciro betes mellitus 45020709 E11.69 E11.42 E11.22 [id number] Juancarlos Lassiter DO [facility] ([facility]) [address] [place] [phone] 12/22/2024 12:38:28 12/27/2024 08:38:20 Pneumonia 472821935 J18.9 27281020 Health Concerns Section Related Observation LastModified by Organization Detai ls LastModified Time None Recorded Concern Status LastModified by Organization Details LastModified Time None Recorded Payers Encounter Date Sequence Insurance Name Policy Number Policy Mc Covered Member ID Mc Member ID Guarantor Name 12/22/2024 1 [place]IC[place] Andrés Dumont [id number] Andrés Dumont 12/22/2024 2 [employer] (MEDICARE SUPPLEMENT) Andrés Dumont [id number] Andrés Dumont Notes Date Note Type Note Provider Name and Address Organization Details Recorded Time 5 text/html HypertensionReported by PatientHPIFor severity, patient reportsgrade 1 (130-139/80-89). For duration, patient reportshas noted for years. For alleviating factors, patient reportsmedication.ROS as noted in the [facility] ER follow up, seen for SOB. Juancarlos Lassiter DO [address] [place] [address], [phone], [facility] 12/26/2024 14:35:11
--- OUTSIDE RECORDS SUMMARY | 2025-03-04 17:59 | XMS_ITS ---
Author Organization Unknown Results OrderDate OrderTestName ResultName ResultDate Value Units Range AbnormalFlag ResultStatus ObservationNotes TestCode ResultCode DateRecorded AccessionNumber DiagnosticSectionCode DiagnosticSectionName Sequence Interpretation Custom CollectionStartDate CollectionEndDate 07/04/2024 00:00:00 CMP, SERUM OR PLASMA sodium 2595-68-64V46:00:00 131.0 mmol/l 136.0-145.0 low Final CMP, SERUM OR PLASMA Coding sodium 07/04/2024 00:00: 00:00:00CMP, SERUM OR PLASMAosmolality 1461-10-74C64:00:35615.0calcFinal Coding CMP, SERUM OR PLASMA Coding osmolality 07/04/2024 00:00: 00:00:00CMP, SERUM OR PLASMAglobulin 5128-85-48P30:00:003.5calcFinal Coding CMP, SERUM OR PLASMA Coding globulin 07/04/2024 00:00: 00:00:00CMP, SERUM OR PLASMAtotal bilirubin 2668-21-59S87:00:001.0mg/dl0.2-1.3Final Coding CMP, SERUM OR PLASMA Coding total bilirubin 07/04/2024 00:00: 00:00:42VYIrfs6800-73-75J02:00:0030.8pg27.0-32.0 Final Coding CBC Coding mch 07/04/2024 00:00: 00:00:00CMP, SERUM OR PLASMAbun (blood urea nitrogen)8557-36-62P09:00:0052.0mg/dl10.0-26.0highFinal Coding CMP, SERUM OR PLASMA Coding bun (blood urea nitrogen) 07/04/2024 00:00: 00:00:00CMP, SERUM OR PLASMAtotal protein 3988-98-00E17:00:007.3g/dl6.0-8.5Final Coding CMP, SERUM OR PLASMA Coding total protein 07/04/2024 00:00: 00:00:03PYOtym8460-14-50Z60:00:005.69e438.30-5.90 Final Coding CBC Coding rbc 07/04/2024 00:00: 00:00:26UUSukh2634-90-97P38:00:0094.3fl80.0-99.9 Final Coding CBC Coding mcv 07/04/2024 00:00: 00:00:00CMP, SERUM OR PLASMAchloride 1965-74-57M48:00:0095.0mmol/l98.0-110.0abnormalFinal Coding CMP, SERUM OR PLASMA Coding chloride 07/04/2024 00:00:00103/27/2024 00:00:00LAB*4651-47-26A66:00:00 Coding LAB* Coding 01/25/2025 00:00: 00:00:00CMP, SERUM OR PLASMAbun/creatinine ratio 6561-09-96I32:00:0032.50ratioFinal Coding CMP, SERUM OR PLASMA Coding bun/creatinine ratio 07/04/2024 00:00: 00:00:00FL, MODIFIED BARIUM SWALLOW STUDY 1426-08-62F60:00:00 Coding FL, MODIFIED BARIUM SWALLOW STUDY Coding 07/13/2024 00:00: 00:00:00CMP, SERUM OR PLASMAegfr calculated 2225-75-22N12:00:0044.7Final Coding CMP, SERUM OR PLASMA Coding egfr calculated 07/04/2024 00:00: 00:00:00CMP, SERUM OR PLASMAalbumin 0452-93-30E53:00:003.8g/dl3.5-5.5Final Coding CMP, SERUM OR PLASMA Coding albumin 07/04/2024 00:00: 00:00:00MICROALBUMIN/CREATININE, MASS RATIO, URINE albumin/creatinine ratio, random nedoi1231-43-77F72:00:77865dy/g creat<30high Final Coding MICROALBUMIN/CREATININE, MAS S RATIO, URINE Coding albumin/creatinine ratio, ra ndom urine albumin/creatinine ratio, ra ndom urine 07/04/2024 00:00:00104/02/2024 00:00:00LAB*5056-48-35L12:00:00 Coding LAB* Coding 01/31/2025 00:00: 00:00:00MICROALBUMIN/CREATININE, MASS RATIO, URINE creatinine, random wctkr5570-94-67G04:00:0048mg/hq41-098wnvlnhVldzs Coding MICROALBUMIN/CREATININE, MAS S RATIO, URINE Coding creatinine, random urine creatinine, random urine 07/04/2024 00:00: 00:00:00CMP, SERUM OR PLASMAa/g ratio 9760-21-59S63:00:001.1ratioFinal Coding CMP, SERUM OR PLASMA Coding a/g ratio 07/04/2024 00:00: 00:00:00CMP, SERUM OR PLASMAaltv (sgpt) 4102-49-66V68:00:0040.0u/l13.0-69.0normalFinal Coding CMP, SERUM OR PLASMA Coding altv (sgpt) 07/04/2024 00:00: 00:00:57DNOrcu9325-33-95F70:00:0016.3g/dl13.5-18.0 Final Coding CBC Coding hgb 07/04/2024 00:00: 00:00:00CBCgranulcytes#2740-14-39T45:00:0010.3x10 Final Coding CBC Coding granulcytes# 07/04/2024 00:00: 00:00:29KYCgrd9311-06-14O92:00:0014.1x104.5-10.5 highFinal Coding CBC Coding wbc 07/04/2024 00:00: 00:00:00CMP, SERUM OR PLASMAalp phos 3796-25-26X01:00:59908.0u/l30.0-140.0normalFinal Coding CMP, SERUM OR PLASMA Coding alp phos 07/04/2024 00:00: 00:00:00CMP, SERUM OR PLASMApotassium 5487-51-44S18:00:004.2mmol/l3.5-5.1Final Coding CMP, SERUM OR PLASMA Coding potassium 07/04/2024 00:00: 00:00:00CBCgranulcytes %3885-85-63D17:00:0073.2% 30.0-70.0highFinal Coding CBC Coding granulcytes % 07/04/2024 00:00: 00:00:00HEMOGLOBIN A1C/HEMOGLOBIN TOTAL, QN, BLOOD hemaglobin c7u2848-63-96H58:00:006.94.2-6.5highFinal Coding HEMOGLOBIN A1C/HEMOGLOBIN TO FERNY, QN, BLOOD Coding hemaglobin a1c hemaglobin a1c 07/04/2024 00:00: 00:00:95STVvrv0530-63-58G51:00:0049.9%35.0-60.0 Final Coding CBC Coding hct 07/04/2024 00:00: 00:00:00CMP, SERUM OR AVZOZLf554873-52-21Y80:00:00 27.0mmol/l22.0-31.0Final Coding CMP, SERUM OR PLASMA Coding c02 07/04/2024 00:00: 00:00:00BARIUM SWALLOW PKVQQ3724-35-40W56:00:00 Coding BARIUM SWALLOW STUDY Coding 07/13/2024 00:00: 00:00:00CMP, SERUM OR PLASMAast (sgot) 9516-19-56D16:00:0030.0u/l0.0-46.0Final Coding CMP, SERUM OR PLASMA Coding ast (sgot) 07/04/2024 00:00: 00:00:52EVRkzyi9827-77-48A64:00:0032.6g/dl 32.0-36.0Final Coding CBC Coding mchc 07/04/2024 00:00: 00:00:26DDLrsq6933-75-32E58:00:59361.8x10 150.0-451.0Final Coding CBC Coding plt 07/04/2024 00:00: 00:00:77IBTssd1414-78-29R27:00:0014.6%11.5-14.5 highFinal Coding CBC Coding rdw 07/04/2024 00:00: 00:00:00CBClymphocytes #5567-60-20X36:00:001.9x10 Final Coding CBC Coding lymphocytes # 07/04/2024 00:00: 00:00:00CMP, SERUM OR PLASMAglucose 7833-39-64Q85:00:11439.0mg/dl60.0-99.0highFinal Coding CMP, SERUM OR PLASMA Coding glucose 07/04/2024 00:00: 00:00:00CBCmonocytes %0616-35-58C15:00:0010.2% 2.0-16.0Final Coding CBC Coding monocytes % 07/04/2024 00:00: 00:00:00CBClymphocytes %6247-33-10N78:00:0013.3% 20.0-50.0lowFinal Coding CBC Coding lymphocytes % 07/04/2024 00:00: 00:00:00MICROALBUMIN/CREATININE, MASS RATIO, URINE albumin, rjhey0874-30-64S47:00:007.4mg/dlSEE NOTE:normalFinal Coding MICROALBUMIN/CREATININE, MAS S RATIO, URINE Coding albumin, urine albumin, urine 07/04/2024 00:00: 00:00:00CMP, SERUM OR PLASMAanion gap 5386-50-57C11:00:009.0calcFinal Coding CMP, SERUM OR PLASMA Coding anion gap 07/04/2024 00:00: 00:00:00CBCmonocytes #2485-59-85G54:00:001.4x10 Final Coding CBC Coding monocytes # 07/04/2024 00:00: 00:00:00CMP, SERUM OR PLASMAcreatinine (serum) 2755-33-08C63:00:001.6mg/dl0.4-1.5highFinal Coding CMP, SERUM OR PLASMA Coding creatinine (serum) 07/04/2024 00:00: 00:00:00CMP, SERUM OR PLASMAcalcium 0125-67-39P61:00:008.8mg/dl8.4-10.5Final Coding CMP, SERUM OR PLASMA Coding calcium 07/04/2024 00:00:00
--- OUTSIDE RECORDS SUMMARY | 2025-03-04 18:00 | XMS_ITS | Clinical Summary ---
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
--- OUTSIDE RECORDS SUMMARY | 2025-03-04 18:00 | XMS_ITS | Continuity of Care Document ---
Author Organization [facility], LJose AntonioLLaura, [facility] ([facility]) Address [address] [place] [address] Care Team Providers Care Phone Engineer Name Role Phone CHA JONES Primary Care [...] By Organization Details Last Modified Time 01/19/2025 [id number] Admitted with volume overload. Started on BIPAP, diarised 7 liters. Weight down 21 lbs from ER admission. Labs on Thursday. f/u next week. [email or web address] Not available 01/19/2025 14:48:42 Reason for Referral None Reported. Problems Name Problem SNOMED Code Status Onset Date Resolution Date Notes Provider Name and Address Organization Details Recorded Time Foot ulcer due to type 2 diabetes mellitus 97442971083 00 Active 2022 DIABETIC TOE ULCER; Impressi on: Right toe, resolved , continue s f/u with Dr. Goodman Delmy jeter [facility] LJose AntonioLLaura 5 07:56:23 Type 2 diabetes mellitus 87257182 Active 2022 [facility]VIA [facility] 3 11:57:16 Hypercho lesterol emia 53245530 Active 2022 Delmy jeter [facility] 5 07:56:23 Ulcer of toe 773425285 Active 2022 Cha JonesDO [address] [place] [address], [address] , [facility] 3 09:38:37 Essentia l hyperten sai 26273862 Active 2022 Delmy jeter, [facility] 5 07:56:23 Atrial fibrilla tion 02438655 Active 2023 Delmy jeter [facility], Mandy.L.C. 5 07:55:39 Age related macular degenera tion 275205087 Active 2023 Delmy jeter [facility] 5 07:55:35 Congesti ve heart failure 78480074 Active 2023 Delmy jeter, [facility] 5 07:55:51 Chronic kidney disease stage 3B 786303621 Active 2023 Delmy jeter [facility] 5 07:55:45 Edema of lower extremit y 199601187 Active 2023 Delmy jeter [facility] 5 07:56:23 Acute bronchit is 02933402 Completed 202306/21/2024 Delmy jeter [facility] 5 07:55:32 Hypokale jerica 44601030 Active 2023 Delmy jeter [facility] 5 07:56:23 Pain of bilatera l hip joints 95002375545 816779 Active 2023 Delmy jeter, [facility] 5 07:55:42 Gastroes ophageal reflux disease 598644545 Active 2023 Delmy jeter, [facility] 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 5 07:56:23 Abnormal gait due to muscle weakness 830755007 Active 2024 Delmyisabell jeter, [facility] 5 07:56:23 Right carotid artery stenosis 61312633815 9100 Active 2024 Delmyisabell jeter, [facility] 5 11:28:49 Chronic bronchit is 02511359 Active 2024 Delmy [facility], [facility] 5 11:28:47 Primary biliary cholangi tis 77884540 Active 2024 Cha Jones, DO [address] [place] [address], [phone] , [facility] 5 11:27:33 Difficul ty sleeping 836299785 Active 2024 Rafiq jeter, [facility] 5 17:35:55 Closed fracture of hip 585036052 Active 2024 [facility] 16:41:22 Bilatera l lower limb edema 335389425 Active 2024 [facility] 12:49:21 Pneumoni a 005612553 Active 2024 [facility] 12:47:01 Post-dis charge follow-u p 846012238 Active 2024 ERIC JARAMILLO [facility] 14:47:51 Acute exacerba tion of chronic congesti ve heart failure 822661456 Active 2024 ERIC JARAMILLO [facility] 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 14:47:53 Obstruct victorina sleep apnea syndrome 46416153 Active 2024 ERIC JARAMILLO [facility] 14:47:56 Chronic atrial fibrilla tion 401040427 Active 2024 ERIC JARAMILLO [facility] 14:47:57 Chronic kidney disease stage 3A 149166516 Active 2024 ERIC JARAMILLO [facility] 14:47:59 Notes:Some problems listed i n Documents: #[id number], #[id number], #[id number], #[id number] could not be added to this patient's chart. Please review these documents and add these problems to the patient's chart manually as needed. Problem Notes None recorded. Procedures Surgical History Date Name Laterality Status Provider Name and Address Organization Details Recorded Time tonsillectomy completed ALEXIA BURCIAGA [facility], L.LLaura 05/25/2024 11:58:08 Cholecystectomy completed ALEXIA PATRICA [facility], L.LLaura 05/25/2024 11:58:14 Imaging Results None recorded. Procedure Notes None recorded. Medical Equipment None Reported. Allergies Allergen ID Allergen Name Allergen Category Reaction Reaction Severity Criticality Documentation Date Start Date Code Code System Note Provider Name and Address Organization Details Recorded Time 59 lovastati n medicatio n Not available Not available Not available 06/06/2022 6472 RxNorm Sondra Quick steffany [facility], LJose AntonioLLaura 3 12:00:13 42773 Product containin g 3-hydroxy -3-methyl glutaryl- coenzyme A reductase inhibitor (product) medicatio n itching Not available low 02/03/20252022 49031 009 SNOMED Not Available wanchese - External Data Service - prod 18:04:07 Medications Name Sig Start Date Stop Date Status Note LastModified by Organization Details LastModified Time Prescript ion - New 09/22 completed Not Available Not Available Not Available Prescript ion - Prior Authoriza tion Request active [place] 5/325 Not Available Not Available Not Available [...] MOUTH EVERY 6 HOURS NEEDED FOR COUGH 05/25 /2023 completed Not Available Not Available Not Available [...] Not Available loratadin e daily 12/24 completed 32358; Recorded 10/16/19 2:59PM by Elvia Singh (Authori michelle through Cha Jones DO), Office Visit; Not Available Not Available Not Available Lasix every morning 12/24 completed DM/sd; 59027; Recorded 12/12/19 1:18PM by Elvia Singh (Authori michelle through Cha Jones DO), Refill Request; Refill Quantity : 30; Tablet; Not Available Not Available Not Available fluconazo le daily 12/24 completed 0; Recorded 06/04/19 23 11:43AM by Pina Smart, Office Visit; Not Available Not Available Not Available carvedilo l two times daily 12/24 completed 07109; Recorded 02/26/20 11:07AM by Pina Smart (Authori michelle through Cha Jones DO), Office Visit; Refill Quantity : 60; Tablet; Not Available Not Available Not Available hydralazi ne three times daily 12/24 completed DM/sd; 27343; Recorded 01/22/20 10:41AM by Rafiq Medellin (Authori zed through [facility] , DO), Office Visit; Refill Quantity : 0; Not Available Not Available Not Available lisinopri l daily 12/24 completed 26657; Recorded 11/13/19 9:23AM by Rafiq Medellin (Authori zed through [facility] , DO), Office Visit; Refill Quantity : 90; Tablet; Not Available Not Available Not Available sildenafi l daily 12/24 completed 75160; Recorded 10/16/19 2:59PM by Elvia Singh (Authori zed through [facility] , DO), Office Visit; Not Available Not Available Not Available glipizide daily 12/24 completed 19100; Recorded 11/13/19 9:23AM by Rafiq Medellin (Authori zed through [facility] , DO), Office Visit; Not Available Not Available Not Available multivita min active Not Available Not Available Not Available Potassium Chloride ER two times daily 12/24 completed DM/sd; 28974; Recorded 03/27/19 1:52PM by Elvia Singh (Authori zed through [facility] , DO), Annotati on/Adden dum; Refill Quantity [...] Available Eliquis two times daily 12/24 completed 59153; Recorded 11/13/19 9:23AM by Rafiq Medellin (Authori [...] Not Available Not Available FreeStyle Kalani 2 Gonzales as directed 05/25 completed Not Available Not [...] Updated DateTime 5 187.96 cm 32.2 kg/m2 219712. 68 g 83 /min 18 /min 99.3 [degF] 93 % 132/78 mm[Hg] ERIC FISHER [facility] 14:44:47 Social History Question Answer Notes LastModified by [employer] Details LastModified Time Tobacco Smoking Status Former Smoker [facility]vin [facility] 10/05/2023 09:45:48 What Is Your Level Of Caffeine Consumption? Moderate Coffee [email or web address] Information not available 05/25/2024 How Many Years Have You Smoked Tobacco? 20 [email or web address] Information not available 10/05/2023 Sex: Unknown Functional Status Question Answer Note LastModified by [employer] Details LastModified Time Do you use any illicit or recreational drugs? No Information not available 08/14/2022 Do you or have you ever used any other forms of tobacco or nicotine? No Information not available 08/14/2022 What is your level of alcohol consumption? None [email or web address] Information not available 08/14/2022 Are you currently employed? No [email or web address] Information not available 05/25/2024 Are you able to walk independently without assistance or assistive devices? YESASSIST walker [email or web address] Information not available 05/25/2024 Are you able to care for yourself independently? Yes [email or web address] Information not available 05/25/2024 Mental Status None recorded. Family History Relationship Description Onset Age of this Age Resolved Age Notes LastModified by Organization Details LastModified Time Father Diabetes mellitus Not available 05/25 11:55:50 Father Motor vehicle accident age 50 [email or web address] Not available 05/25/2024 11:56:43 Mother Malignant neoplasm of colon age 73 [email or web address] Not available 05/25/2024 11:56:22 Paternal Grandmother Natural age 102 [email or web address] Not available 05/25/2024 11:57:08 Medical History Condition Response Coronary Artery Disease N Other Y Gout N Kidney Stones N Blood Diseases N Hyperthyroidism N Blood Transfusion N Breast Cancer N Depression N Hypothyroidism N Lung Disease [...] Time zoster recombinant completed Cha Jones DO [address] [place] [address], [phone], [facility] 04/22/2023 11:34:44 zoster recombinant 2 completed Cha Jones DO [address] [place] [address], [phone], [facility] 04/22/2023 11:34:44 Influenza, high-dose, quadrivalent, PF 2 completed Cha Jones DO [address] [place] [address], [address], [facility] 04/22/2023 11:34:45 COVID-19, mRNA, LNP-S, PF, 100 mcg/0.5mL dose or 50 mcg/0.25mL dose 1 completed Cha Jones DO [address] [place] [address], [address], [facility] 04/22/2023 11:34:45 COVID-19, mRNA, LNP-S, PF, 100 mcg/0.5mL dose or 50 mcg/0.25mL dose 1 completed Cha Jones DO [address] [place] [address], [address], [facility] 04/22/2023 11:34:45 COVID-19, mRNA, LNP-S, PF, 100 mcg/0.5mL dose or 50 mcg/0.25mL dose 1 completed Cha Jones DO [address] [place] [address], [address], [facility] 04/22/2023 11:34:45 COVID-19, mRNA, LNP-S, bivalent, PF, 50 mcg/0.5 mL or 25mcg/0.25 mL dose 2 completed Cha Jones DO [address] [place] [address], [address], [facility] 04/22/2023 11:34:45 pneumococcal polysaccharide PPV23 8 completed Cha Jones DO [address] [place] [address], [address], [facility] 04/22/2023 11:34:45 Pneumococcal conjugate PCV 13 9 completed Cha Jones DO [address] [place] [address], [address], [facility] 04/22/2023 11:34:45 Influenza, high-dose, quadrivalent, PF 3 completed Delmy jeter, [facility] 06/21/2024 09:00:08 COVID-19, mRNA, LNP-S, PF, 50 mcg/0.5 mL 3 completed Delmy jeter, [facility] 06/21/2024 09:00:08 Pneumococcal conjugate PCV20, polysaccharide OGG692 conjugate, adjuvant, PF 4 completed Cha Jones DO [address] [place] [address], [address], [facility] 04/23/2023 08:45:56 Influenza, split virus, trivalent, PF 4 completed PINA jeter, [facility] 12/28/2023 11:39:19 Past Encounters Encounter ID Performer Location Encounter Start Date Encounter Closed Date Diagnosis/Indication Diagnosis SNOMED-CT Code Diagnosis ICD10 Code Diagnosis IMO Codes Diagnosis Note [id number] Juancarlos Lassiter DO [facility] ([facility]) [address] [place] [address] 12/22/2024 12:38:28 12/27/2024 08:38:20 Pneumonia 460248309 J18.9 [id number] Juancarlos Lassiter DO [facility] ([facility]) [address] [place] [address] 01/02/2025 13:31:44 01/04/2025 08:08:13 Post-discharge follow-up 676031394 Z09 376626 History of cerebrovascular accident 960482844 Z86.73 231846 Chronic at rial fibrillation 305029603 I48.20 767087 Congestive heart failure 44887812 I11.0 Essential hypertension 69746922 I10 Type 2 ciro betes mellitus 56174959 E11.69 E11.42 E11.22 Chronic ki dney disease stage 3B 137159023 N18.32 E26.1 [id number] Juancarlos Lassiter [facility]) [address] [place] [address] 01/19/2025 14:03:19 01/24/2025 10:58:38 Post-discharge follow-up 563404663 Z09 125497 Acute exac erbation of chronic congestive heart failure 990523245 I50.9 1223326791 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 1675817881 35968 T46.2X1A E03.2 7863730 Obstructiv e sleep apnea syndrome 45323962 G47.33 598146 Chronic at rial fibrillation 090777365 I48.20 356356 Chronic ki dney disease stage 3A 624884668 N18.31 6732849278 Type 2 ciro betes mellitus 75006796 E11.69 E11.42 E11.22 Health Concerns Section Related Observation LastModified by Organization Detai ls LastModified Time None Recorded Concern Status LastModified by Organization Details LastModified Time None Recorded Payers Encounter Date Sequence Insurance Name Policy Number Policy Mc Covered Member ID Mc Member ID Guarantor Name 01/19/2025 1 [place] Andrés Dumont [id number] Andrés Dumont 01/19/2025 2 [employer] (MEDICARE SUPPLEMENT) Andrés Dumont [id number] Andrés Dumont Notes Date Note Type Note Provider Name and Address Organization Details Recorded Time 5 text/html HypertensionReported by PatientHPIFor severity, patient reportsgrade 1 (130-139/80-89). For duration, patient reportshas noted for years. For alleviating factors, patient reportsmedication.ROS as noted in the [facility] hospital follow up Juancarlos Lassiter, DO [address] [place] [address], [phone], [facility] 01/20/2025 16:48:25
--- OUTSIDE RECORDS SUMMARY | 2025-03-04 18:00 | XMS_ITS | Encounter Summary ---
Author Organization [facility] Address [address] [place] [address] Care Team Providers Care Torts Law Professor Name Role Phone Unavailable Primary Care Provider Unavailabl e Reason for Visit * Reason Onset Date Comments Question 03/03/2025 Encounter Details Date Type Department Care Team (Late st Contact Info) Description 03/03/2025 Telephone [facility]-[address] [place] [address] Lucinda Marin NP [address] [place] [address] [address] [place] [address] Question Social History Tobacco Use Types Packs/Day Years [...] worry about transportation for future doctor visits, pick remover medication, etc.? No 2024 Housing Stability Answer [...] on file documented as of this encounter Miscellaneous Notes * Telephone Encounter - Alexandrea Manzo - 03/03/2025 11:19 AM ASSISTANT MANAGER TRAINEE VM left letting the nurse know how to take care of the steri strips --Steri-Strips applied --Do not get wet for [...] infection --Call with any questions or concerns ----- Message from [employer] sent at 03/03/2025 9:50 AM ASSISTANT MANAGER TRAINEE ----- Received a call from Rica with [facility]. [facility]. Said she was wondering if she could get clarification on what orders they would like for the wound with the steri strips. Asked for a call back at [phone]. STANT MANAGER TRAINEE STANT MANAGER TRAINEE documented in this encounter Plan of Treatment Not on file documented as of this encounter Visit Diagnoses Not on filedocumented in this encounter
--- OUTSIDE RECORDS SUMMARY | 2025-03-04 18:00 | XMS_ITS | Data Portability ---
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 Breathing improved. Edema improving. [email or web address] Not available 12/22/2024 12:47:24 01/02/2025 [id number] Admitted with weakness and facial droop. 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 Diuretics held. Will schedule lasix daily and have staff get daily weights. Labs on Thursday. [email or web address] Not available 01/02/2025 13:52:25 01/19/2025 [id number] Admitted with volume overload. Started on BIPAP, diarised 7 liters. Weight down 21 lbs from ER admission. Labs on Thursday. f/u next week. [email or web address] Not available 01/19/2025 14:48:42 01/23/2025 [id number] Started on 1200 ml fluid restriction. Breathing improved. Weight down from 251 to 249. Sugars occasionally high, but mostly controlled. [email or web address] Not available 01/23/2025 12:31:34 02/27/2025 [id number] Limited Records.[facility]. Staff to track down d/c summary. sugars reviewed and a little high, but will give time to level out. [email or web address] Not available 02/27/2025 16:14:52 Reason for Referral None Reported. Results Created Date Observation Date Name Description Value Unit Range Abnormal Flag Note LastModifiedBy Organization Detail LastModifiedTime Result Notes None recorded. Problems Name Problem SNOMED Code Status Onset Date Resolution Date Notes Provider Name and Address Organization Details Recorded Time Foot ulcer due to type 2 diabetes mellitus 34183790897 00 Active 2022 DIABETIC TOE ULCER; Impressi on: Right toe, resolved , continue s f/u with Dr. Goodman Delmy jeter [facility] 5 07:56:23 Type 2 diabetes mellitus 88478082 Active 2022 ELVIA jeter [facility] 3 11:57:16 Hypercho lesterol emia 09697888 Active 2022 Delmy jeter [facility] 5 07:56:23 Ulcer of toe 259448444 Active 2022 Cha Jones, [address], [address] , [facility] 3 09:38:37 Essentia l hyperten sai 60648883 Active 2022 Delmy jeter [facility] 5 07:56:23 Atrial fibrilla tion 10527882 Active 2023 Delmy jeter [facility] 5 07:55:39 Age related macular degenera tion 338340182 Active 2023 Delmy jeter [facility] 5 07:55:35 Congesti ve heart failure 08214301 Active 2023 Delmy jeter [facility] 5 07:55:51 Chronic kidney disease stage 3B 597751929 Active 2023 Delmy jeter, [facility] 5 07:55:45 Edema of lower extremit y 338077987 Active 2023 Delmy jeter [facility] 5 07:56:23 Acute bronchit is 68110549 Completed 202306/21/2024 Delmy jeter [facility] 5 07:55:32 Hypokale jerica 52477690 Active 2023 Delmy jeter [facility] 5 07:56:23 Pain of bilatera l hip joints 79646063150 524653 Active 2023 Delmyisabell [facility] 5 07:55:42 Gastroes ophageal reflux disease 571976424 Active 2023 Delmyisabell Mariscal steffany [facility] 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 5 07:56:23 Abnormal gait due to muscle weakness 750622259 Active 2024 Delmy jeter [facility] 5 07:56:23 Right carotid artery stenosis 36968231778 9100 Active 2024 Delmy jeter, [facility] 5 11:28:49 Chronic bronchit is 24633027 Active 2024 Delmy jeter, [facility] 5 11:28:47 Primary biliary cholangi tis 49977685 Active 2024 Cha Jones, DO [address] [place] [address], [address] , [facility] 11:27:33 Difficul ty sleeping 188686397 Active 2024 Rafiq Bookernuria jeter, [facility] 17:35:55 Closed fracture of hip 637491023 Active 2024 ERIC jeter, [facility] 16:41:22 Bilatera l lower limb edema 978886880 Active 2024 ERIC jeter, [facility] 12:49:21 Pneumoni a 646604982 Active 2024 ERIC jeter [facility] 12:47:01 Post-dis charge follow-u p 901735373 Active 2024 ERIC jeter, [facility] 14:47:51 Acute exacerba tion of chronic congesti ve heart failure 463037271 Active 2024 ERIC jeter [facility] 14:47:52 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 14:47:53 Obstruct victorina sleep apnea syndrome 38470170 [facility] 14:47:56 Chronic atrial fibrilla tion 650099908 Active 2024 [facility] 14:47:57 Chronic kidney disease stage 3A 782962451 Active 2024 [facility] 14:47:59 Notes:Some problems listed i n Documents: #[id number], #[id number], #[id number], #[id number] could not be added to this patient's chart. Please review these documents and add these problems to the patient's chart manually as needed. Problem Notes None recorded. Procedures Surgical History Date Name Laterality Status Provider Name and Address Organization Details Recorded Time tonsillectomy completed ALEXIA BURCIAGA [facility] 05/25/2024 11:58:08 Cholecystectomy completed [facility] 05/25/2024 11:58:14 Imaging Results None recorded. Procedure Notes None recorded. Medical Equipment None Reported. Allergies Allergen ID Allergen Name Allergen Category Reaction Reaction Severity Criticality Documentation Date Start Date Code Code System Note Provider Name and Address Organization Details Recorded Time 59 lovastati n medicatio n Not available Not available Not available 06/06/2022 6472 RxNorm [facility] 3 12:00:13 81700 Product containin g 3-hydroxy -3-methyl glutaryl- coenzyme A reductase inhibitor (product) medicatio n itching Not available low 02/03/20252022 33424 009 SNOMED Not Available stevie - External Data Service - prod 18:04:07 Medications Name Sig Start Date Stop Date Status Note LastModified by Organization Details LastModified Time Prescript ion - New 09/22 completed Not Available Not Available Not Available Prescript ion - Prior Authoriza tion Request active [place] 5/325 Not Available Not Available Not Available [...] Not Available loratadin e daily 12/24 completed 38224; Recorded 10/16/19 22 2:59PM by Elvia Singh (Authori michelle through Cha Jones , DO), Office Visit; Not Available Not Available Not Available Lasix every morning 12/24 completed DM/sd; 48819; Recorded 12/12/19 1:18PM by Elvia Singh (Authorpasquale martinez through [employer] , DO), Refill Request; Refill Quantity : 30; Tablet; Not Available Not Available Not Available fluconazo le daily 12/24 completed 0; Recorded 06/04/19 11:43AM by Pina Smart, Office Visit; Not Available Not Available Not Available carvedilo l two times daily 12/24 completed 92625; Recorded 02/26/20 11:07AM by Pina Smart (Vince martinez through [employer] , DO), Office Visit; Refill Quantity : 60; Tablet; Not Available Not Available Not Available hydralazi ne three times daily 12/24 completed DM/sd; 49989; Recorded 01/22/20 10:41AM by Rafiq Medellin (Authorpasquale martinez through [employer] , DO), Office Visit; Refill Quantity : 0; Not Available Not Available Not Available lisinopri l daily 12/24 completed 81865; Recorded 11/13/19 9:23AM by Rafiq Medellin (Authorpasquale johnsond through [employer] , DO), Office Visit; Refill Quantity : 90; Tablet; Not Available Not Available Not Available sildenafi l daily 12/24 completed 06812; Recorded 10/16/19 2:59PM by Elvia Singh (Authori michelle through [employer] , DO), Office Visit; Not Available Not Available Not Available glipizide daily 12/24 completed 13964; Recorded 11/13/19 9:23AM by Rafiq Medellin (Authorpasquale martinez through [employer] , DO), Office Visit; Not Available Not Available Not Available multivita min active Not Available Not Available Not Available Potassium Chloride ER two times daily 12/24 completed DM/sd; 81706; Recorded 03/27/19 1:52PM by Elvia Singh (Vince [...] Available Eliquis two times daily 12/24 completed 94700; Recorded 11/13/19 9:23AM by Rafiq Medellin (i michelle through Cha Jones DO), Office Visit; Refill Quantity : 60; Tablet; Not Available Not Available Not Available potassium chloride ER 20 mEq tablet,ex tended release Take 1 tablet every day by oral route. 06/21 completed Not Available Not Available Not Available FreeStyle Kalani 2 Sensor as directed 05/25 completed Not Available Not Available Not Available FreeStyle Kalani 2 [place] as directed 05/25 completed Not Available Not [...] and Address Organization Details Last Updated DateTime 10/02/202 5 187.96 cm 67 /min 20 /min 98.5 [degF] 97 % 165/70 mm[Hg] ERIC [facility] 5 12:45:04 Date Recorded Body height Provider Name an d Address Organization Details Last Updated DateTime 01/02/2025 187.96 cm ERIC [facility] 01/02/2025 13:49:17 Date Recorded Body height Body mass index (BMI) Body weight Heart rate Respiratory rate Body temperature Oxygen saturation Systolic And Diastolic Provider Name and Address Organization Details Last Updated DateTime 5 187.96 cm 32.2 kg/m2 145914. 68 g 83 /min 18 /min 99.3 [degF] 93 % 132/78 mm[Hg] ERIC [facility] 5 14:44:47 Date Recorded Body height Body mass index (BMI) Body weight Heart rate Respiratory rate Body temperature Oxygen saturation Systolic And Diastolic Provider Name and Address Organization Details Last Updated DateTime 5 187.96 cm 31.7 kg/m2 770291. 32 g 70 /min 18 /min 97.8 [degF] 97 % 130/72 mm[Hg] [facility] 5 12:29:10 Date Recorded Body height Body mass index (BMI) Body weight Heart rate Respiratory rate Body temperature Oxygen saturation Systolic And Diastolic Provider Name and Address Organization Details Last Updated DateTime 5 187.96 cm 34.3 kg/m2 421153. 16 g 77 /min 20 /min 99.3 [degF] 98 % 128/60 mm[Hg] [facility] 5 16:10:12 Social History Question Answer Notes LastModified by Organizat ion Details LastModified Time Tobacco Smoking Status Former Smoker [facility] 10/05/2023 09:45:48 What Is Your Level Of Caffeine Consumption? Moderate Coffee [email or web address] Information not available 05/25/2024 How Many Years Have You Smoked Tobacco? 20 Information not available 10/05/2023 Sex: Unknown Functional Status Question Answer Note LastModified by Organizat ion Details LastModified Time Do you use any illicit or recreational drugs? No [email or web address] Information not available 08/14/2022 Do you or have you ever used any other forms of tobacco or nicotine? No [email or web address] Information not available 08/14/2022 What is your level of alcohol consumption? None [email or web address] Information not available 08/14/2022 Are you currently employed? No [email or web address] Information not available 05/25/2024 Are you able to walk independently without assistance or assistive devices? YESASSIST walker [email or web address] Information not available 05/25/2024 Are you able to care for yourself independently? Yes [email or web address] Information not available 05/25/2024 Mental Status None recorded. Family History Relationship Description Onset Age of this Age Resolved Age Notes LastModified by Organization Details LastModified Time Father Diabetes mellitus [email or web address] Not available 05/25 11:55:50 Father Motor vehicle accident age 50 [email or web address] Not available 05/25/2024 11:56:43 Mother Malignant neoplasm of colon age 73 [email or web address] Not available 05/25/2024 11:56:22 Paternal Grandmother Natural age 102 [email or web address] Not available 05/25/2024 11:57:08 Medical History Condition [...] zoster recombinant 2 completed Cha Jones DO [address] [place] [address], [phone], [facility] 04/22/2023 11:34:44 zoster recombinant 2 completed Cha Jones DO [address] [place] [address], [phone], [facility] 04/22/2023 11:34:44 Influenza, high-dose, quadrivalent, PF 2 completed Cha Jones DO [address] [place] [address], [phone], [facility] 04/22/2023 11:34:45 COVID-19, mRNA, LNP-S, PF, 100 mcg/0.5mL dose or 50 mcg/0.25mL dose 1 completed Cha Jones DO [address] [place] [address], [phone], [facility] 04/22/2023 11:34:45 COVID-19, mRNA, LNP-S, PF, 100 mcg/0.5mL dose or 50 mcg/0.25mL dose 1 completed Cha Jones DO [address] [place] [address], [phone], [facility] 04/22/2023 11:34:45 COVID-19, mRNA, LNP-S, PF, 100 mcg/0.5mL dose or 50 mcg/0.25mL dose 1 completed Cha Jones DO [address] [place] [address], [phone], [facility] 04/22/2023 11:34:45 COVID-19, mRNA, LNP-S, bivalent, PF, 50 mcg/0.5 mL or 25mcg/0.25 mL dose 2 completed Cha Jones DO [address] [place] [address], [phone], [facility] 04/22/2023 11:34:45 pneumococcal polysaccharide PPV23 8 completed Cha Jones DO [address] [place] [address], [address], [facility] 04/22/2023 11:34:45 Pneumococcal conjugate PCV 13 9 completed Cha Jones DO [address] [place] [address], [address], [facility] 04/22/2023 11:34:45 Influenza, high-dose, quadrivalent, PF 3 completed Delmy jeter [facility] 06/21/2024 09:00:08 COVID-19, mRNA, LNP-S, PF, 50 mcg/0.5 mL 3 completed Delmy jeter [facility] 06/21/2024 09:00:08 Pneumococcal conjugate PCV20, polysaccharide [id number] conjugate, adjuvant, PF 4 completed Cha Jones DO [address] [place] [address], [phone], [facility] 04/23/2023 08:45:56 Influenza, split virus, trivalent, PF 4 completed PINA jeter [facility] 12/28/2023 11:39:19 Past Encounters Encounter ID Performer Location Encounter Start Date Encounter Closed Date Diagnosis/Indication Diagnosis SNOMED-CT Code Diagnosis ICD10 Code Diagnosis IMO Codes Diagnosis Note [id number] Cha Jones DO [facility] [address] [place] [address] 08/14/2022 08:51:29 08/14/2022 10:00:37 Type 2 diabetes mellitus 40703257 E11.69 E11.42 E11.22 a1c of 8.4 in May. pt has struggled with uncontroll ed and variable glucose levels for years. can be 70 up to 300. hard to control. pt has worked on diet and weight management . will repeat labs today. continue with podiatry. pt to continue meds: Glipizide 10mg and Lantus 32 units bid. will star Essential hypertension 34748217 I10 stable. conitnue: Amlodipine 10mg, Carvedilol 12.5mg bid, Hydralazin e 10mg tid, Lisinopril 40mg Ulcer of toe 909409797 L 97.509 currently healed. not seeing wound care anymore. Followed by Podiatry, Dr. Hensley. continues with diabetic shoes and daily foot care. Mixed hyperlipidemia 267 930034 E78.2 Stable. Will repeat labs. Continue rosuvastat in. Counseled on diet and exercise. Edema of l ower extremity 859404981 R60.0 concern for fluid overload. pt with hx of afib, I do not find hx of chf on available records. will get further records. pt to start lasix daily for 1 wk. limit salt. monitor HR and afib. Return to office with no improvemen t or any problems. Go to ER with severe worsening or severe problems. [id number] Cha Jones DO [facility] [address] [place] [address] 12/24/2022 11:01:31 12/24/2022 13:53:03 Benign essential hypertension 5725411 I10 Hypercholesterolemia 136 12963 E78.00 Stable. Will repeat labs next appt. Continue Atorvastat in. Counseled on diet and exericse. Type 2 ciro betes mellitus 49647057 E11.69 E11.42 E11.22 A1c in july improved to 6.8.contin ue with podiatry. pt to continue meds: Glipizide 10mg and Lantus 32 units bid. will repeat labs. Essential hypertension 99581693 I10 Blood pressure getting low multiple times. We will decrease hydralazin e down to 25mg TID. conitnue: Amlodipine 10mg, Carvedilol 12.5mg bid, Lisinopril 40mg monitor blood pressure closely at home. [id number] JACQUI STRATTON [facility] [address] [place] [address] 03/07/2023 11:53:03 03/14/2023 07:29:37 Viral screening 339385498 Z11.52 COVID-19 532211087 U07.1 [id number] Cha Jones DO [facility]) [address] [place] [address] 04/22/2023 10:30:43 04/22/2023 12:34:01 Essential hypertension 08765988 I10 Blood pressure getting low multiple times. We will decrease hydralazin e down to 25mg TID. continue: Amlodipine 10mg, Carvedilol 12.5mg bid, Lisinopril 40mg monitor blood pressure closely at home.- Continue to monitor, counseled on fluid intake, stay well hydrated, log BP and HR when having symptoms, also log glucose. Hypercholesterolemia 136 55592 E78.00 Stable. Continue Atorvastat in. Counseled on diet and exercise. Foot ulcer due to type 2 diabetes mellitus 5634113164 100 E11.621 04/22/23- healed, continues seeing Podiatry. Atrial fibrillation 4943 6004 I48.91 Continue Xarelto and Carvedilol , following with Cardiology . Type 2 ciro betes mellitus 45646371 E11.69 E11.42 E11.22 04/22/23- A1c 7.2 on 12/24/22, will repeat lab today. Counseled on diet, exercise. Age relate d macular degeneration 243695606 H35.3290 Continue care with Ophthalmol ogist. Congestive heart failure 90360107 I11.0 Continue following with Cardiology . Chronic ki dney disease stage 3B 642376018 N18.32 E26.1 Labs today. Edema of l ower extremity 233913736 R60.0 04/22/23- continues Furosemide . Allergic rhinitis 270688 04 J30.9 Counseled continue nasal spray, daily allergy med Claritin/ Zyrtec, switch from what he is using now. Active or passive immunization 998711634 Z23 Flu vax UTD Dec 2022. Prevnar 20 today. [id number] Cha Jones DO [facility] [address] [place] [id number] 05/15/2023 10:21:46 05/15/2023 13:51:50 Type 2 diabetes mellitus 23600321 E11.69 E11.42 E11.22 glocose improved, will start CGMS. counseled Chronic ki dney disease stage 3B 710210180 N18.32 E26.1 improved slightly. counseled on fluid intake, diet, glucose management . Essential hypertension 51358562 I10 Blood pressure getting low multiple times. We will decrease hydralazin e down to 25mg BID. continue: Amlodipine 10mg, Carvedilol 12.5mg bid, Lisinopril 40mg monitor blood pressure closely at home.- Continue to monitor, counseled on fluid intake, stay well hydrated, log BP and HR when having symptoms, also log glucose. [id number] Cha Jones DO [facility]) [address] [place] [address] 06/10/2023 15:27:26 06/10/2023 16:47:08 Acute bronchitis 29165503 J20.9 Counseled continue Doxy, start Prednisone , Benzonatat e. Counseled Prednisone may increase glucose. [id number] Cha Jones DO [facility]) [address] [place] [id number] 06/16/2023 09:40:54 06/16/2023 14:02:41 Type 2 diabetes mellitus 95230702 E11.69 E11.42 E11.22 06/16/23- Reviewed and discussed glucose log, improved until he started Prednisone , expect to come back down after Prednisone , continue current tx. Will try CGM sample today, Dexcom, insurance won't cover Kalani. Essential hypertension 91097426 I10 06/16/23- reviewed and discussed BP log, stable, continue current tx. [id number] Cha Jones DO [facility] [address] [place] [phone] 07/15/2023 10:59:07 07/15/2023 11:42:02 Type 2 diabetes mellitus 65686095 E11.69 E11.42 E11.22 07/15/23- Running 200's all [...] sample today, Dexcom, insurance won't cover Kalani. [id number] Cha Jones DO [facility] [address] [place] [phone] 07/22/2023 10:25:41 07/22/2023 12:06:36 Type 2 diabetes mellitus 39485534 E11.69 E11.42 E11.22 07/22/23- Tolerating CGM, feels [...] today, Dexcom, insurance won't cover Kalani. Hypokalemia 76336173 E87 .6 Continues Lasix, will refill Potassium. Adult heal th examination 636124802 Z00.00 Reviewed and discussed recent lab, elevated liver enzymes, Hepatitis screening today. Counseled on diet, exercise, weight loss. Hypercholesterolemia 136 81820 E78.00 Counseled decrease Rosuvastat in from 40mg to 20mg daily d/t liver enzymes. Liver enzy mes outside reference range 368545348 R94.5 Reviewed lab, Hepatitis screening today, repeat lab in 4 months. [id number] Cha Jones DO [facility] [address] [place] [id number] 09/23/2023 10:43:22 09/23/2023 18:00:27 Type 2 diabetes mellitus 08785701 E11.69 E11.42 E11.22 09/23/23- Reviewed CGM readings, [...] Dexcom, insurance won't cover Kalani. Essential hypertension 37799516 I10 09/23/23- stable, continue current tx.06/16/23 - reviewed and discussed BP log, stable, continue current tx. [id number] JACQUI BROWN [facility] [address] [place] [phone] 10/05/2023 09:41:48 10/05/2023 12:13:36 Acute pansinusitis 4617689 J01.40 Discussed use of antibiotic . Take with food.May use Virgilio's nasal inserts and also apply on chest. Push oral fluids. Consider nasal saline rinses and otc decongesta nt.Use tylenol/mo raysa for reno. [id number] Cha Jones DO [facility]) [address] [place] [phone] 10/12/2023 11:30:35 10/12/2023 13:41:05 Acute bronchitis 50533588 J20.9 No significan t improvemen ts with Augmentin. Will switch to doxycyclin e and add prednisone . Counseled. Return with worsening. [id number] Cha Jones DO [facility]) [address] [place] [address] 11/17/2023 11:02:02 11/17/2023 14:19:34 Hypokalemia 29199294 E87.6 11/17/23- Reviewed recent lab, Lasix 40mg daily and Potassium 20meq daily for 5 days. Counseled on use of Potassium when taking Lasix. Essential hypertension 57946442 I10 11/17/23- counseled resume Lisinopril 20mg daily, had stopped it after [facility] stay. 4- stable, continue current tx.06/16/23 - reviewed and discussed BP log, stable, continue current tx. Type 2 ciro betes mellitus 91608365 E11.69 E11.42 E11.22 11/17/23- A1c 7.4 yesterday, 11/16/23, up from 7.1 on 07/20/23, advised resume DM meds, was taken off these during [facility] stay. Counseled on diet, exercise.- Reviewed [...] Kalani. Chronic ki dney disease stage 3B 798722716 N18.32 E26.1 monitoring . Congestive heart failure 08476243 I11.0 Echo per [facility] 11/14/23: Summary and Conclusion :- Left ventricle: [...] worsening SOB. F/u next week, repeat lab. [id number] Cha Jones DO [facility]) [address] [place] [phone] 11/24/2023 11:47:09 11/25/2023 11:01:59 Chronic kidney disease stage 3B 808611671 N18.32 E26.1 monitoring . [id number] Cha Jones DO [facility]) [address] [place] [phone] 11/25/2023 11:09:55 11/25/2023 17:47:32 Hypokalemia 11405519 E87.6 11/25/23- repeat lab with K+ 3.1, counseled take Potassium 20meq daily.11/16- Reviewed recent lab, Lasix 40mg daily and Potassium 20meq daily for 5 days. Counseled on use of Potassium when taking Lasix. Essential hypertension 20912634 I10 11/17/23- counseled resume Lisinopril 20mg daily, had stopped it after [facility] stay. 4- stable, continue current tx.06/16/23 - reviewed and discussed BP log, stable, continue current tx. Chronic ki dney disease stage 3B 662825782 N18.32 E26.1 monitoring . Congestive heart failure 19535749 I11.0 Echo per [facility] 11/14/23: Summary and Conclusion : - Left [...] 20mg daily with Potassium. F/u 1 month. [id number] Cha Jones DO [facility] ([facility]) [address] [place] [phone] 12/28/2023 10:19:43 12/28/2023 18:01:00 Hypokalemia 38310637 E87.6 12/28/23: pt has decreased KCL to 10meq daily. will repeat labs today 4- repeat lab with K+ 3.1, counseled take Potassium 20meq daily.11/16- Reviewed recent lab, Lasix 40mg daily and Potassium 20meq daily for 5 days. Counseled on use of Potassium when taking Lasix. Essential hypertension 18854015 I10 11/17/23- counseled resume Lisinopril 20mg daily, had stopped it after [facility] hospital stay. 4- stable, continue current tx.06/16/23 - reviewed and discussed BP log, stable, continue current tx. Chronic ki dney disease stage 3B 991709175 N18.32 E26.1 monitoring , CR increased last visit, will repeat labs. counseled Congestive heart failure 75785296 I11.0 10/7/24: cotinue on furosemide and KCL. work on [...] SOB. F/u next week, repeat lab.Echo per [facility] 11/14/23: Summary and Conclusion : - Left [...] is 13mm Hg. Active or passive immunization 012274424 Z23 Flu vax UTD Dec 2022. Prevnar 20 today. Pain of bi lateral hip joints 2581602550 8157605 M25.551 M25.552 pain appears to be from lower back, SI b/l per exam. not hip joints. counseled on exercises and stretching . consider xrays if not improving. [id number] Cha Jones DO [facility] ([facility]) [address] [place] [address] 02/23/2024 09:56:23 02/24/2024 12:36:21 Essential hypertension 41207100 I10 11/17/23- counseled resume Lisinopril 20mg daily, had stopped it after [facility] stay. 4- stable, continue current tx.06/16/23 - reviewed and discussed BP log, stable, continue current tx. Foot ulcer due to type 2 diabetes mellitus 6257504900 100 E11.621 04/22/23- healed, continues seeing Podiatry. Hypercholesterolemia 136 17641 E78.00 Counseled decrease Rosuvastat in from 40mg to 20mg daily d/t liver enzymes. [id number] Cha Jones DO [facility] ([facility]) [address] [place] [address] 03/01/2024 10:16:23 03/02/2024 14:15:42 Hypokalemia 22644432 E87.6 12/28/23: pt has decreased KCL to 10meq daily. will repeat labs today 4- repeat lab with K+ 3.1, counseled take Potassium 20meq daily.11/16- Reviewed recent lab, Lasix 40mg daily and Potassium 20meq daily for 5 days. Counseled on use of Potassium when taking Lasix. Essential hypertension 75315850 I10 03/01/24- Continue current tx, Lisinopril , refill Triamteren e.11/17/23- counseled resume Lisinopril 20mg daily, had stopped it after [facility] stay. 4- stable, continue current tx.06/16/23 - reviewed and discussed BP log, stable, continue current tx. Chronic ki dney disease stage 3B 836955287 N18.32 E26.1 monitoring , reviewed and discussed renal function lab today. Congestive heart failure 82835755 I11.0 12/28/23: continue on furosemide and KCL. [...] SOB. F/u next week, repeat lab.Echo per [facility] 11/14/23: Summary and Conclusion : - Left [...] is 13mm Hg. Gastroesop hageal reflux disease 135708921 K21.9 Stable, refill Pantoprazo le. Type 2 ciro betes mellitus 60283897 E11.69 E11.42 E11.22 03/01/24- Reviewed and discussed A1c, counseled on diet, exercise. Continue current tx, Glipizide, Lantus.10/22 10/13- A1c 7.4 yesterday, 11/16/23, up from 7.1 on 07/20/23, advised resume DM meds, was taken off these during [facility] stay. Counseled on diet, exercise.- Reviewed [...] sample today, Dexcom, insurance won't cover Kalani. [id number] JACQUI STRATTON [facility] ([facility]) [address] [place] [phone] 05/25/2024 10:34:49 05/25/2024 12:40:56 Cerebrovascular accident 619820452 I63.9 Recent hospitaliz ation. [id number] Cha Jones DO [facility] ([facility]) [address] [place] [address] 5 06/02/2024 09:35:34 06/03/2024 13:12:00 CVA - cerebrovascular accident due to cerebral artery occlusion 012089339 I63.50 occurred 05/25/2024: with residual RUE and LLE weakness and mild to moderate dysarthria . Had ECHO and Carotid US in hospital.c ontinue on Xarelto and increased rosuvastat in. will add plavix for the next few wks.keep f/u neurology. Will order ST with MBS. Abnormal g ait due to muscle weakness 392865582 M62.81 s/p CVA that occurred 05/25/2024: with residual RUE and LLE weakness and mild to moderate dysarthria .contine PT and OT, order for walker. 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 will get MBS and ST. counseled [id number] Cha Jones DO [facility] ([facility]) [address] [place] [phone] 06/21/2024 08:40:51 06/21/2024 14:05:57 Hypokalemia 29155026 E87.6 07/04/24: reviewed labs, stable.12/28/23: pt has decreased KCL to 10meq daily. will repeat labs today 4- repeat lab with K+ 3.1, counseled take Potassium 20meq daily.11/16- Reviewed recent lab, Lasix 40mg daily and Potassium 20meq daily for 5 days. Counseled on use of Potassium when taking Lasix. Atrial fibrillation 4943 6007 I48.91 Continue Xarelto and Carvedilol , following with Cardiology . CVA - cere brovascular accident due to cerebral artery occlusion 384832936 I63.50 occurred 05/25/2024: with residual RUE and LLE weakness and mild to moderate dysarthria . Had ECHO and Carotid US in hospital.c ontinue on Xarelto and increased rosuvastat in. will add plavix for the next few wks.keep f/u neurology. Will order ST with MBS. Right barlow tid artery stenosis 5565874938 92224 I65.21 s/p endovascul ar stent may 2024 after 2nd CVA. [facility] Chronic ki dney disease stage 3B 384900328 N18.32 E26.1 monitoring , reviewed and discussed renal function lab today. Essential hypertension 86200303 I10 06/21/24: continue lisinopril , hydralazin e, carvedilol and diazide.- Continue current tx, Lisinopril , refill Triamteren e.11/17/23- counseled resume Lisinopril 20mg daily, had stopped it after [facility] stay. 4- stable, continue current tx.06/16/23 - reviewed and discussed BP log, stable, continue current tx. Type 2 ciro betes mellitus 61505759 E11.69 E11.42 E11.22 03/01/24- Reviewed and discussed A1c, counseled on diet, exercise. Continue current tx, Glipizide, Lantus.10/22 10/13- A1c 7.4 yesterday, 11/16/23, up from 7.1 on 07/20/23, advised resume DM meds, was taken off these during [facility] stay. Counseled on diet, exercise.- Reviewed [...] won't cover Kalani. Gastroesop hageal reflux disease 853999953 K21.9 06/21/24: worsening, will continue Pantoprazo le. will get MBS. 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 Chronic bronchitis 39878 004 J42 Congestive heart failure 73924192 I11.0 06/21/24: reviewed records as below. continue [...] ulcer due to type 2 diabetes mellitus 4014667063 100 E11.621 healed, continues seeing Podiatry. Hypercholesterolemia 136 14896 E78.00 conitnue Rosuvastat in 40mg. will monitor LFTs. Age relate d macular degeneration 664149028 H35.3290 Continue care with Ophthalmol ogist. [id number] Cha Jones DO [facility] ([facility]) [address] [place] [address] 07/04/2024 10:41:26 07/04/2024 12:24:48 Atrial fibrillation 41498798 I48.91 Continue Xarelto and Carvedilol , following with Cardiology . CVA - cere brovascular accident due to cerebral artery occlusion 374966498 I63.50 occurred 05/25/2024: with residual RUE and LLE weakness and mild to moderate dysarthria . Had ECHO and Carotid US in hospital. MBS and ST pending.co ntinue on Xarelto and increased rosuvastat in and plavix.uzma p f/u neurology. Type 2 ciro betes mellitus 38998135 E11.69 E11.42 E11.22 07/04/24: some low glucose, will decrease lantus to 20u BID. monitor closely. f/u 1 mt. sooner with problems.1 05/02/23- Reviewed and discussed A1c, counseled on diet, exercise. Continue current tx, Glipizide, Lantus.10/22 10/13- A1c 7.4 yesterday, 11/16/23, up from 7.1 on 07/20/23, advised resume DM meds, was taken off these during [facility] stay. Counseled on diet, exercise.- Reviewed [...] won't cover Kalani. Primary bi liary cholangitis 39666290 K74.3 DX from Miri MENDOZA NP, 06/2024 with elevated Alk phos with + mitochondi ra M2 ab and JACQUE. started on Ursodiol. I reviewed records. continue urrsodiol. will monitor LFTs. counseled pt. [id number] Cha Jones DO [facility] ([facility]) [address] [place] [phone] 07/20/2024 16:27:28 07/25/2024 12:44:51 CVA - cerebrovascular accident due to cerebral artery occlusion 912979450 I63.50 07/20/24: Discussed MBS results, continue seeing ST, working on swallowing . occurred 05/25/2024: with residual RUE and LLE weakness and mild to moderate dysarthria .continue on Xarelto and increased rosuvastat in and plavix.uzma p f/u neurology. Difficulty sleeping 3013 99277 G47.9 [id number] 07/20/24: Counseled likely d/t increased stress and anxiousnes s r/t current state of health, will start Escitalopr am. Counseled on diagnosis, treatment options including medication s and possible side effects. Type 2 ciro betes mellitus 73585207 E11.69 E11.42 E11.22 07/20/24: Reviewed and discussed [...] DM meds, was taken off these during [facility] stay. Counseled on diet, exercise.- Reviewed [...] sample today, Dexcom, insurance won't cover Kalani. 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 6486711057 53579 I69.322 Closed fra cture of hip 450031937 S72.001S 6721013 [id number] Juancarlos Lassiter DO [facility]) [address] [place] [address] 5 09/05/2024 13:24:33 09/12/2024 17:20:38 Bilateral lower limb edema 524555463 R60.0 4385185258 [id number] Juancarlos Lassiter DO [facility]) [address] [place], [place] [phone] 09/15/2024 07:56:39 09/20/2024 14:25:30 Edema of lower extremity 714294793 R60.0 [id number] Juancarlos Lassiter DO [facility]) [address] [place] [phone] 5 09/22/2024 08:02:00 09/27/2024 08:13:45 Edema of lower extremity 900968097 R60.0 [id number] Juancarlos Lassiter DO [facility] ([facility]) [address] [place] [address] 5 11/03/2024 11:49:57 11/07/2024 17:46:59 Edema of lower extremity 431709344 R60.0 CVA - cere brovascular accident due to cerebral artery occlusion 449680525 I63.50 Congestive heart failure 78751666 I11.0 [id number] Juancarlos Lassiter, [facility]) [address] [place] [address] 12/01/2024 11:46:53 12/06/2024 10:05:32 Edema of lower extremity 790058150 R60.0 Type 2 ciro betes mellitus 40938978 E11.69 E11.42 E11.22 [id number] Juancarlos Lassiter [facility]) [address] [place] [address] 5 12/22/2024 12:38:28 12/27/2024 08:38:20 Pneumonia 598838125 J18.9 54326510 [id number] [facility] [address] [place] [address] 5 01/02/2025 13:31:44 01/04/2025 08:08:13 Post-discharge follow-up 321680895 Z09 052826 History of cerebrovascular accident 167316229 Z86.73 503621 Chronic at rial fibrillation 146936334 I48.20 793164 Congestive heart failure 44339369 I11.0 Essential hypertension 73820307 I10 Type 2 ciro betes mellitus 18832878 E11.69 E11.42 E11.22 Chronic ki dney disease stage 3B 685303677 N18.32 E26.1 [id number] [facility] [address] [place] [address] 5 01/19/2025 14:03:19 01/24/2025 10:58:38 Post-discharge follow-up 911643179 Z09 210131 Acute exac erbation of chronic congestive heart failure 196066409 I50.9 4310264928 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 2476468084 49751 T46.2X1A E03.2 4919315 Obstructiv e sleep apnea syndrome 55020085 G47.33 112386 Chronic at rial fibrillation 581757441 I48.20 343861 Chronic ki dney disease stage 3A 173961421 N18.31 1482581576 Type 2 ciro betes mellitus 76740530 E11.69 E11.42 E11.22 [id number] [facility] [address] [place] [address] 01/23/2025 11:55:55 01/30/2025 08:59:36 Edema of lower extremity 054980228 R60.0 Congestive heart failure 64990241 I11.0 Chronic at rial fibrillation 650983591 I48.20 944896 [id number] Juancarlos Lassiter DO [facility] ([facility]) [address] [place] [address] 02/27/2025 13:52:18 03/02/2025 16:33:44 Post-discharge follow-up 498114424 Z51.89 578962 History of amputation of right leg through tibia and fibula 2886314516 42926 Z89.511 0771647639 Essential hypertension 43993302 I10 Congestive heart failure 60616328 I11.0 Chronic at rial fibrillation 399040245 I48.20 696958 Health Concerns Section Related Observation LastModified by Organization Detai ls LastModified Time None Recorded Concern Status LastModified by Organization Details LastModified Time None Recorded Advance Directives Directive None Recorded Payers Insurance Date Sequence Insurance Name Policy Number Policy Mc Covered Member ID Mc Member ID Guarantor Name 02/27/2025 2 [employer] (MEDICARE SUPPLEMENT) Andrés Dumont [id number] Andrés Dumont 02/27/2025 1 [place] Andrés Dumont [id number] Andrés Dumont 06/18/2022 2 [employer] (INDEMNITY) Andrés Dumont [id number] Andrés Dumont 02/27/2025 [place] [place] - [facility] (MEDICARE) Andrés Dumont [id number] Andrés Dumont Notes Date Note Type Note Provider Name and Address Organization Details Recorded Time 5 text/html HypertensionReported by PatientHPIFor severity, patient reportsgrade 1 (130-139/80-89). For duration, patient reportshas noted for years. For alleviating factors, patient reportsmedication.ROS as noted in the [facility] ER follow up, seen for SOB. Juancarlos Lassiter DO [address] [place] [address], [phone], [facility] 12/26/2024 14:35:11 5 text/html HypertensionReported by PatientHPIFor severity, patient reportsgrade 1 (130-139/80-89). For duration, patient reportshas noted for years. For alleviating factors, patient reportsmedication.ROS as noted in the [facility] hospital follow up Juancarlos Lassiter DO [address] [place] [address], [phone], [facility] 01/02/2025 15:23:39 5 text/html HypertensionReported by PatientHPIFor severity, patient reportsgrade 1 (130-139/80-89). For duration, patient reportshas noted for years. For alleviating factors, patient reportsmedication.ROS as noted in the [facility] hospital follow up Juancarlos Lassiter DO [address] [place] [address], [phone], [facility] 01/20/2025 16:48:25 5 text/html HypertensionReported by PatientHPIFor severity, patient reportsgrade 1 (130-139/80-89). For duration, patient reportshas noted for years. For alleviating factors, patient reportsmedication.ROS as noted in the [facility] check up, breathing improved. Juancarlos Lassiter DO [address] [place] [address], [phone], [facility] 01/27/2025 14:39:27 5 text/html HypertensionReported by PatientHPIFor severity, patient reportsgrade 1 (130-139/80-89). For duration, patient reportshas noted for years. For alleviating factors, patient reportsmedication.ROS as noted in the [facility] re-admit to SNF after hospitalization resulting in Right BKA Juancarlos Lassiter DO [address] [place] [address], [phone], [facility] 03/01/2025 17:31:43
--- OUTSIDE RECORDS SUMMARY | 2025-03-04 18:00 | XMS_ITS | Continuity of Care Document ---
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 Diuretics held. Will schedule lasix daily and have staff get daily weights. Labs on Thursday. [email or web address] Not available 01/02/2025 13:52:25 Reason for Referral None Reported. Problems Name Problem SNOMED Code Status Onset Date Resolution Date Notes Provider Name and Address Organization Details Recorded Time Foot ulcer due to type 2 diabetes mellitus 56226968283 00 Active 2022 DIABETIC TOE ULCER; Impressi on: Right toe, resolved , continue s f/[facility]. Goodman [facility] 07:56:23 Type 2 diabetes mellitus 61943029 Active 2022 ELVIA [facility]eter [facility] 3 11:57:16 Hypercho lesterol emia 79487523 Active 2022 Delmy jeter [facility] Antonio 5 07:56:23 Ulcer of toe 448562113 Active 2022 Cha Jones, [address], [address] , [facility] 3 09:38:37 Essentia l hyperten sai 86653319 Active 2022 Delmy jeter, [facility] 5 07:56:23 Atrial fibrilla tion 48681163 Active 2023 Delmy jeter [facility] Antonio 5 07:55:39 Age related macular degenera tion 564818733 Active 2023 Delmy jeter [facility] 5 07:55:35 Congesti ve heart failure 10443103 Active 2023 Delmy jeter [facility] 5 07:55:51 Chronic kidney disease stage 3B 112921707 Active 2023 Delmy jeter [facility] 5 07:55:45 Edema of lower extremit y 441603540 Active 2023 Delmy jeter [facility] 5 07:56:23 Acute bronchit is 87693427 Completed 202306/21/2024 Delmy jeter [facility] 5 07:55:32 Hypokale jerica 41274711 Active 2023 Delmy jeter [facility] 5 07:56:23 Pain of bilatera l hip joints 54437500991 061240 Active 2023 Delmy jeter, [facility] 5 07:55:42 Gastroes ophageal reflux disease 712979469 Active 2023 Delmy jeter, [facility] 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 5 07:56:23 Abnormal gait due to muscle weakness 031030936 Active 20[facility] 5 07:56:23 Right carotid artery stenosis 64249146207 9100 Active 2024 Delmy Mar[facility]cal [facility] 5 11:28:49 Chronic bronchit is 12259650 Active 2024 [facility] 5 11:28:47 Primary biliary cholangi tis 57280966 Active 2024 Cha Jones, [address], [address] , [facility] 5 11:27:33 Difficul ty sleeping 460694740 Active 2024 Rafiq jeter, [facility] 5 17:35:55 Closed fracture of hip 136968856 Active 2024 [facility] 16:41:22 Bilatera l lower limb edema 831448204 Active 2024 [facility] 12:49:21 Pneumoni a 687020636 Active 2024 [facility] 12:47:01 Post-dis charge follow-u p 506699620 Active 2024 [facility] 14:47:51 Acute exacerba tion of chronic congesti ve heart failure 844163227 Active 2024 [facility] 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 14:47:53 Obstruct victorina sleep apnea syndrome 33521466 Active 2024 [facility] 14:47:56 Chronic atrial fibrilla tion 279717151 Active 2024 [facility] 14:47:57 Chronic kidney disease stage 3A 549675137 Active 2024 ERIC JARAMILLO [facility] 14:47:59 Notes:Some problems listed i n Documents: #[id number], #[id number], #[id number], #[id number] could not be added to this patient's chart. Please review these documents and add these problems to the patient's chart manually as needed. Problem Notes None recorded. Procedures Surgical History Date Name Laterality Status Provider Name and Address Organization Details Recorded Time tonsillectomy completed ALEXIA BURCIAGA [facility] 05/25/2024 11:58:08 Cholecystectomy completed ALEXIA BURCIAGA [facility] LJose AntonioLLaura 05/25/2024 11:58:14 Imaging Results None recorded. Procedure Notes None recorded. Medical Equipment None Reported. Allergies Allergen ID Allergen Name Allergen Category Reaction Reaction Severity Criticality Documentation Date Start Date Code Code System Note Provider Name and Address Organization Details Recorded Time 59 lovastati n medicatio n Not available Not available Not available 06/06/2022 6472 RxNorm Sondra Quick steffany [facility] 3 12:00:13 80065 Product containin g 3-hydroxy -3-methyl glutaryl- coenzyme A reductase inhibitor (product) medicatio n itching Not available low 02/03/20252022 14572 009 SNOMED Not Available [place] - External Data Service - prod 18:04:07 Medications Name Sig Start Date Stop Date Status Note LastModified by Organization Details LastModified Time Prescript ion - New 09/22 completed Not Available Not Available Not Available Prescript ion - Prior Authoriza tion Request active [place] 5/325 Not Available Not Available Not Available [...] Not Available loratadin e daily 12/24 completed 61953; Recorded 10/16/19 2:59PM by Elvia Singh (Authorpasquale martinez through Cha Jones DO), Office Visit; Not Available Not Available Not Available Lasix every morning 12/24 completed DM/sd; 09302; Recorded 12/12/19 1:18PM by Elvia Singh (Authori michelle through Cha Jones DO), Refill Request; Refill Quantity : 30; Tablet; Not Available Not Available Not Available fluconazo le daily 12/24 completed 0; Recorded 06/04/19 23 11:43AM by Pina Smart, Office Visit; Not Available Not Available Not Available carvedilo l two times daily 12/24 completed 97462; Recorded 02/26/20 11:07AM by Pina Smart (i michelle through Cha Jones DO), Office Visit; Refill Quantity : 60; Tablet; Not Available Not Available Not Available hydralazi ne three times daily 12/24 completed DM/sd; 98917; Recorded 01/22/20 10:41AM by Rafiq Medellin (Authori zed through [employer] , DO), Office Visit; Refill Quantity : 0; Not Available Not Available Not Available lisinopri l daily 12/24 completed 55937; Recorded 11/13/19 9:23AM by Rafiq Medellin (Authori zed through [employer] , DO), Office Visit; Refill Quantity : 90; Tablet; Not Available Not Available Not Available sildenafi l daily 12/24 completed 58068; Recorded 10/16/19 2:59PM by Elvia Singh (Authori zed through [employer] , DO), Office Visit; Not Available Not Available Not Available glipizide daily 12/24 completed 77004; Recorded 11/13/19 9:23AM by Rafiq Medellin (Authori michelle through [employer] , DO), Office Visit; Not Available Not Available Not Available multivita min active Not Available Not Available Not Available Potassium Chloride ER two times daily 12/24 completed DM/sd; 76398; Recorded 03/27/19 1:52PM by Elvia Singh (Authori michelle through [employer] , DO), Annotati on/Adden dum; Refill Quantity [...] Available Eliquis two times daily 12/24 completed 99656; Recorded 11/13/19 9:23AM by Rafiq Medellin (Authori zed through JENI Aj, Office Visit; Refill Quantity : 60; Tablet; Not Available Not Available Not Available potassium chloride ER 20 mEq tablet,ex tended release Take 1 tablet every day by oral route. 06/21 completed Not Available Not Available Not Available FreeStyle Kalani 2 Sensor as directed 05/25 completed Not Available Not Available Not Available FreeStyle Kalani 2 [place] as directed 05/25 completed Not Available Not [...] Updated DateTime 01/02/2025 187.96 cm ERIC CLINT [facility] 01/02/2025 13:49:17 Social History Question Answer Notes LastModified by Organizat ion Details LastModified Time Tobacco Smoking Status Former Smoker Edvin Jordan steffany [facility] 10/05/2023 09:45:48 What Is Your Level Of Caffeine Consumption? Moderate Coffee Information not available 05/25/2024 How Many Years Have You Smoked Tobacco? 20 [email or web address] Information not available 10/05/2023 Sex: Unknown Functional Status Question Answer Note LastModified by Organizat ion Details LastModified Time Do you use any illicit or recreational drugs? No [email or web address] Information not available 08/14/2022 Do you or have you ever used any other forms of tobacco or nicotine? No [email or web address] Information not available 08/14/2022 What is your level of alcohol consumption? None [email or web address] Information not available 08/14/2022 Are you currently employed? No [email or web address] Information not available 05/25/2024 Are you able to walk independently without assistance or assistive devices? YESASSIST walker [email or web address] Information not available 05/25/2024 Are you able to care for yourself independently? Yes [email or web address] Information not available 05/25/2024 Mental Status None recorded. Family History Relationship Description Onset Age of this Age Resolved Age Notes LastModified by Organization Details LastModified Time Father Diabetes mellitus [email or web address] Not available 05/25 11:55:50 Father Motor vehicle accident age 50 [email or web address] Not available 05/25/2024 11:56:43 Mother Malignant neoplasm of colon age 73 [email or web address] Not available 05/25/2024 11:56:22 Paternal Grandmother Natural age 102 [email or web address] Not available 05/25/2024 11:57:08 Medical History Condition Response Coronary Artery Disease N Other Y Gout N Kidney Stones N Blood Diseases N Hyperthyroidism N Breast Cancer N Blood Transfusion N Depression N Hypothyroidism N Lung Disease N COPD N Developmental or Behavioral Disorders N Defects [...] zoster recombinant 2 completed Cha Jones DO [address] [place] [address], [phone], [facility] L.LJose AntonioCJose Antonio 04/22/2023 11:34:44 zoster recombinant 2 completed Cha Jones DO [address] [place] [address], [phone], [facility] 04/22/2023 11:34:44 Influenza, high-dose, quadrivalent, PF 2 completed Cha Jones DO [address] [place] [address], [phone], [facility] 04/22/2023 11:34:45 COVID-19, mRNA, LNP-S, PF, 100 mcg/0.5mL dose or 50 mcg/0.25mL dose 1 completed Cha Jones DO [address] [place] [address], [phone], [facility] 04/22/2023 11:34:45 COVID-19, mRNA, LNP-S, PF, 100 mcg/0.5mL dose or 50 mcg/0.25mL dose 1 completed Cha Jones DO [address] [place] [address], [phone], [facility] 04/22/2023 11:34:45 COVID-19, mRNA, LNP-S, PF, 100 mcg/0.5mL dose or 50 mcg/0.25mL dose 1 completed Cha Jones DO [address] [place] [address], [phone], [facility] 04/22/2023 11:34:45 COVID-19, mRNA, LNP-S, bivalent, PF, 50 mcg/0.5 mL or 25mcg/0.25 mL dose 2 completed Cha Jones DO [address] [place] [address], [phone], [facility] 04/22/2023 11:34:45 pneumococcal polysaccharide PPV23 8 completed Cha Jones DO [address] [place], [address], [facility] 04/22/2023 11:34:45 Pneumococcal conjugate PCV 13 9 completed Cha Jones DO [address] [place] [address], [phone], [facility] 04/22/2023 11:34:45 Influenza, high-dose, quadrivalent, PF 3 completed Delmy jeter, [facility] 06/21/2024 09:00:08 COVID-19, mRNA, LNP-S, PF, 50 mcg/0.5 mL 3 completed Delmy jeter, [facility] 06/21/2024 09:00:08 Pneumococcal conjugate PCV20, polysaccharide [id number] conjugate, adjuvant, PF 4 completed Cha Jones DO [address] [place] [address], [phone], [facility] 04/23/2023 08:45:56 Influenza, split virus, trivalent, PF 4 completed PINA jeter, [facility] 12/28/2023 11:39:19 Past Encounters Encounter ID Performer Location Encounter Start Date Encounter Closed Date Diagnosis/Indication Diagnosis SNOMED-CT Code Diagnosis ICD10 Code Diagnosis IMO Codes Diagnosis Note [id number] Juancarlos Lassiter DO [facility] ([facility]) [address] [place] [phone] 12/22/2024 12:38:28 12/27/2024 08:38:20 Pneumonia 026282472 J18.9 [id number] Juancarlos Lassiter DO [facility] ([facility]) [address] [place] [phone] 01/02/2025 13:31:44 01/04/2025 08:08:13 Post-discharge follow-up 601353665 Z09 291591 History of cerebrovascular accident 791566587 Z86.73 081394 Chronic at rial fibrillation 952611776 I48.20 080461 Congestive heart failure 58699626 I11.0 Essential hypertension 91763324 I10 Type 2 ciro betes mellitus 47254111 E11.69 E11.42 E11.22 Chronic ki dney disease stage 3B 827093520 N18.32 E26.1 Health Concerns Section Related Observation LastModified by Organization Detai ls LastModified Time None Recorded Concern Status LastModified by Organization Details LastModified Time None Recorded Payers Encounter Date Sequence Insurance Name Policy Number Policy Mc Covered Member ID Mc Member ID Guarantor Name 01/02/2025 1 [place]ICARE [place]: [employer] Andrés Dumont [id number] Andrés Dumont 01/02/2025 2 [employer] (MEDICARE SUPPLEMENT) Andrés Dumont [id number] Andrés Dumont Notes Date Note Type Note Provider Name and Address Organization Details Recorded Time 5 text/html HypertensionReported by PatientHPIFor severity, patient reportsgrade 1 (130-139/80-89). For duration, patient reportshas noted for years. For alleviating factors, patient reportsmedication.ROS as noted in the [facility] hospital follow up Juancarlos Lassiter DO [address] [place] [address], [phone], [facility] 01/02/2025 15:23:39
--- OUTSIDE RECORDS SUMMARY | 2025-03-04 18:00 | XMS_ITS | Continuity of Care Document ---
Author Organization [facility], [place], [facility] ([facility]) Address [address] [place] [address] Care Team Providers Care Signals Intelligence Analyst Name Role Phone CHA JONES Primary Care [...] By Organization Details Last Modified Time 01/23/2025 [id number] Started on 1200 ml fluid restriction. Breathing improved. Weight down from 251 to 249. Sugars occasionally high, but mostly controlled. [email or web address] Not available 01/23/2025 12:31:34 Reason for Referral None Reported. 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 Goodman [facility] 07:56:23 Type 2 diabetes mellitus 61541569 Active 2022 ELVIA [facility]eter [facility] 3 11:57:16 Hypercho lesterol emia 96036965 Active 2022 Delmy jeter [facility] L.L.CJose Antonio 5 07:56:23 Ulcer of toe 373491362 Active 2022 Cha Jones, DO [address] [place] [address], [phone] , [facility], Allyson.CJose Antonio 3 09:38:37 [facility]ia l hyperten sai 72430290 Active 2022 Delmy jeter, [facility], LJose AntonioL.CJose Antonio 5 07:56:23 Atrial fibrilla tion 79309784 Active 2023 Delmy jeter [facility], CandelariaLJose AntonioCJose Antonio 5 07:55:39 Age related macular degenera tion 216808515 Active 2023 Delmy jeter [facility], CandelariaLJose AntonioCJose Antonio 5 07:55:35 Congesti ve heart failure 60542996 Active 2023 Delmy jeter [facility], LJose AntonioL.CJose Antonio 5 07:55:51 Chronic kidney disease stage 3B 999496700 Active 2023 Delmy jeter [facility], LJose AntonioL.C. 5 07:55:45 Edema of lower extremit y 816183108 Active 2023 Delmy jeter [facility], [place]aria[place].CJose Antonio 5 07:56:23 Acute bronchit is 60026670 Completed 202306/21/2024 Delmy jeter [facility]aria[facility].CJose Antonio 5 07:55:32 Hypokale jerica 43859499 Active 2023 Delmy jeter [facility], LJose AntonioL.CJose Antonio 5 07:56:23 Pain of bilatera l hip joints 22898940974 546924 Active 2023 Delmy jeter, [facility]. 5 07:55:42 Gastroes ophageal reflux disease 222777200 Active 2023 Delmy jeter, [facility] 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 5 07:56:23 Abnormal gait due to muscle weakness 210258216 Active 2024 [facility] 5 07:56:23 Right carotid artery stenosis 42039264553 9100 Active 2024 [facility] 5 11:28:49 Chronic bronchit is 23476038 Active 2024 [facility] 5 11:28:47 Primary biliary cholangi tis 96485515 Active 2024 Cha Jones, DO [address] [place] [address], [phone] , [facility] 5 11:27:33 Difficul ty sleeping 307421379 Active 2024 Rafiq jeter, [facility] 5 17:35:55 Closed fracture of hip 352738303 Active 2024 ERIC jeter, [facility] 16:41:22 Bilatera l lower limb edema 855373901 Active 2024 ERIC JARAMILLO [facility] 12:49:21 Pneumoni a 093277336 Active 2024 ERIC JARAMILLO [facility] 12:47:01 Post-dis charge follow-u p 711127412 Active 2024 ERIC JARAMILLO [facility] 14:47:51 Acute exacerba tion of chronic congesti ve heart failure 336764318 Active 2024 ERICTANNER JARAMILLO [facility]. 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 14:47:53 Obstruct victorina sleep apnea syndrome 07571335 Active 2024 ERIC JARAMILLO [facility] 14:47:56 Chronic atrial fibrilla tion 221859218 Active 2024 ERIC JARAMILLO [facility] 14:47:57 Chronic kidney disease stage 3A 064118763 Active 2024 ERICTANNER JARAMILLO [facility]. 14:47:59 Notes:Some problems listed i n Documents: #[id number], #[id number], #[id number], #[id number] could not be added to this patient's chart. Please review these documents and add these problems to the patient's chart manually as needed. Problem Notes None recorded. Procedures Surgical History Date Name Laterality Status Provider Name and Address Organization Details Recorded Time tonsillectomy completed ALEXIA PATRICA [facility] AntonioCJose Antonio 05/25/2024 11:58:08 Cholecystectomy completed ALEXIA PATRICA [facility]CJose Antonio 05/25/2024 11:58:14 Imaging [...] RxNorm Sondra Quick steffany [facility] L.L.CJose Antonio 12:00:13 39089 Product containin g 3-hydroxy -3-methyl glutaryl- coenzyme A reductase inhibitor (product) medicatio n itching Not available low 02/03/20252022 59064 009 SNOMED Not Available stevie - External Data Service - prod 18:04:07 Medications Name Sig Start Date Stop Date Status Note LastModified by Organization Details LastModified Time Prescript ion - New 09/22 completed Not Available Not Available Not Available Prescript ion - Prior Authoriza tion Request active [place] 5/325 Not Available Not Available Not Available [...] Not Available loratadin e daily 12/24 completed 64461; Recorded 10/16/19 2:59PM by Elvia Singh (Authori michelle through Cha Jones DO), Office Visit; Not Available Not Available Not Available Lasix every morning 12/24 completed DM/sd; 70713; Recorded 12/12/19 1:18PM by Elvia Singh (Authori michelle through Cha Jones DO), Refill Request; Refill Quantity : 30; Tablet; Not Available Not Available Not Available fluconazo le daily 12/24 completed 0; Recorded 06/04/19 23 11:43AM by Pina Smart, Office Visit; Not Available Not Available Not Available carvedilo l two times daily 12/24 completed 00844; Recorded 02/26/20 22 11:07AM by Pina Smart (Vince martinez through Cha Jones DO), Office Visit; Refill Quantity : 60; Tablet; Not Available Not Available Not Available hydralazi ne three times daily 12/24 completed DM/sd; 17265; Recorded 01/22/20 10:41AM by Rafiq Medellin (Authori zed through [employer] , DO), Office Visit; Refill Quantity : 0; Not Available Not Available Not Available lisinopri l daily 12/24 completed 50887; Recorded 11/13/19 9:23AM by Rafiq Medellin (Authori zed through [employer] , DO), Office Visit; Refill Quantity : 90; Tablet; Not Available Not Available Not Available sildenafi l daily 12/24 completed 90652; Recorded 10/16/19 2:59PM by Elvia Singh (Authori zed through [employer] , DO), Office Visit; Not Available Not Available Not Available glipizide daily 12/24 completed 54586; Recorded 11/13/19 9:23AM by Rafiq Medellin (Authori zed through [employer] , DO), Office Visit; Not Available Not Available Not Available multivita min active Not Available Not Available Not Available Potassium Chloride ER two times daily 12/24 completed DM/sd; 23914; Recorded 03/27/19 1:52PM by Elvia Singh (Authori zed through [employer] , DO), Annotati on/Adden dum; Refill Quantity [...] Available Eliquis two times daily 12/24 completed 02341; Recorded 11/13/19 9:23AM by Rafiq Medellin (Authori zed through [employer] , DO), Office Visit; Refill Quantity : 60; Tablet; Not Available Not Available Not Available potassium chloride ER 20 mEq tablet,ex tended release Take 1 tablet every day by oral route. 06/21 completed Not Available Not Available Not Available FreeStyle Kalani 2 Sensor as directed 05/25 completed Not Available Not Available Not Available FreeStyle Kalani 2 [place] as directed 05/25 completed Not Available Not [...] Last Updated DateTime 187.96 cm 31.7 kg/m2 274582. 32 g 70 /min 18 /min 97.8 [degF] 97 % 130/72 mm[Hg] ERIC JARAMILLO [facility] 12:29:10 Social History Question Answer Notes LastModified by Load[employer] Details LastModified Time Tobacco Smoking Status Former Smoker Edvin Jordan steffany [facility] 10/05/2023 09:45:48 What Is Your Level Of Caffeine Consumption? Moderate Coffee [email or web address] Information not available 05/25/2024 How Many Years Have You Smoked Tobacco? 20 Information not available 10/05/2023 Sex: Unknown Functional Status Question Answer Note LastModified by Load[employer] Details LastModified Time Do you use any illicit or recreational drugs? No [email or web address] Information not available 08/14/2022 Do you or have you ever used any other forms of tobacco or nicotine? No [email or web address] Information not available 08/14/2022 What is your level of alcohol consumption? None [email or web address] Information not available 08/14/2022 Are you currently employed? No [email or web address] Information not available 05/25/2024 Are you able to walk independently without assistance or assistive devices? YESASSIST walker [email or web address] Information not available 05/25/2024 Are you able to care for yourself independently? Yes [email or web address] Information not available 05/25/2024 Mental Status None recorded. Family History Relationship Description Onset Age of this Age Resolved Age Notes LastModified by Organization Details LastModified Time Father Diabetes mellitus Not available 05/25 11:55:50 Father Motor vehicle accident age 50 Not available 05/25/2024 11:56:43 Mother Malignant neoplasm of colon age 73 [email or web address] Not available 05/25/2024 11:56:22 Paternal Grandmother Natural [...] Recorded Time zoster recombinant 2 completed Cha Jones, DO [address] [place] [address], [phone], [facility] 04/22/2023 11:34:44 zoster recombinant 2 completed Cha Jones DO [address] [place] [address], [address] [place] [address], [facility] 04/22/2023 11:34:44 Influenza, high-dose, quadrivalent, PF 2 completed Cha Jones [address], [address] [place] [address], [facility] 04/22/2023 11:34:45 COVID-19, mRNA, LNP-S, PF, 100 mcg/0.5mL dose or 50 mcg/0.25mL dose 1 completed Cha Jones DO [address] [place] [address], [phone], [facility] 04/22/2023 11:34:45 COVID-19, mRNA, LNP-S, PF, 100 mcg/0.5mL dose or 50 mcg/0.25mL dose 1 completed Cha Jones DO [address] [place] [address], [phone], [facility] 04/22/2023 11:34:45 COVID-19, mRNA, LNP-S, PF, 100 mcg/0.5mL dose or 50 mcg/0.25mL dose 1 completed Cha Jones DO [address] [place] [address], [phone], [facility] 04/22/2023 11:34:45 COVID-19, mRNA, LNP-S, bivalent, PF, 50 mcg/0.5 mL or 25mcg/0.25 mL dose 2 completed Cha Jones DO [address] [place] [phone], [facility] 04/22/2023 11:34:45 pneumococcal polysaccharide PPV23 8 completed Cha Jones DO [address] [place] [address], [phone], [facility] 04/22/2023 11:34:45 Pneumococcal conjugate PCV 13 9 completed Cha Jones DO [address] [place] [address], [address], [facility] 04/22/2023 11:34:45 Influenza, high-dose, quadrivalent, PF 3 completed Delmy jeter [facility] 06/21/2024 09:00:08 COVID-19, mRNA, LNP-S, PF, 50 mcg/0.5 mL 3 completed Delmy jeter [facility] 06/21/2024 09:00:08 Pneumococcal conjugate PCV20, polysaccharide FTI163 conjugate, adjuvant, PF 4 completed Cha Jones DO [address] [place] [address], [phone], [facility] 04/23/2023 08:45:56 Influenza, split virus, trivalent, PF 4 completed PINA jeter [facility] 12/28/2023 11:39:19 Past Encounters Encounter ID Performer Location Encounter Start Date Encounter Closed Date Diagnosis/Indication Diagnosis SNOMED-CT Code Diagnosis ICD10 Code Diagnosis IMO Codes Diagnosis Note [id number] Juancarlos Lassiter DO [facility] ([facility]) [address] [place] [address] 01/02/2025 13:31:44 01/04/2025 08:08:13 Post-discharge follow-up 069790782 Z09 409688 History of cerebrovascular accident 914787906 Z86.73 479541 Chronic at rial fibrillation 568049544 I48.20 537231 Congestive heart failure 52087769 I11.0 Essential hypertension 24200757 I10 Type 2 ciro betes mellitus 91380542 E11.69 E11.42 E11.22 Chronic ki dney disease stage 3B 628124203 N18.[id number] 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 1704889302 24643 T46.2X1A E03.2 9333889 Obstructiv e sleep apnea syndrome 73683151 G47.33 816736 Chronic at rial fibrillation 651195475 I48.20 357574 Chronic ki dney disease stage 3A 148662200 N18.31 5131485314 Type 2 ciro betes mellitus 93259451 E11.69 E11.42 E11.22 [id number] [facility] ([facility]) [address] [place] [phone] 01/23/2025 11:55:55 01/30/2025 08:59:36 Edema of lower extremity 217592149 R60.0 Congestive heart failure 79047734 I11.0 Chronic at rial fibrillation 544005761 I48.20 718041 Health Concerns Section Related Observation LastModified by Organization Detai ls LastModified Time None Recorded Concern Status LastModified by Organization Details LastModified Time None Recorded Payers Encounter Date Sequence Insurance Name Policy Number Policy Mc Covered Member ID Mc Member ID Guarantor Name 01/23/2025 1 [place]: [place] Andrés Dumont [id number] Andrés Dumont 01/23/2025 2 [employer] (MEDICARE SUPPLEMENT) Andrés Dumont [id number] Andrés Dumont Notes Date Note Type Note Provider Name and Address Organization Details Recorded Time 5 text/html HypertensionReported by PatientHPIFor severity, patient reportsgrade 1 (130-139/80-89). For duration, patient reportshas noted for years. For alleviating factors, patient reportsmedication.ROS as noted in the HPI check up, breathing improved. Juancarlos Lassiter, [address], [address], [facility] 01/27/2025 14:39:27
--- OUTSIDE RECORDS SUMMARY | 2025-03-04 18:00 | XMS_ITS | Continuity of Care Document ---
Author Organization [facility], L.LLaura, [facility] ([facility]) Address [address] [place] [address] Care Team Providers Care Advisory Services Associate Name Role Phone CHA GRIGGS Primary Care Provider Unavailabl e Assessment No [...] Modified By Organization Details Last Modified Time 02/27/2025 [id number] Limited Records.Haily. Staff to track down d/c summary. sugars reviewed and a little high, but will give time to level out. [email or web address] Not available 02/27/2025 16:14:52 Reason for Referral None Reported. Results Created Date Observation Date Name Description Value Unit Range Abnormal Flag Note LastModifiedBy Organization Detail LastModifiedTime Result Notes None recorded. 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 Goodman Delmy jeter [facility], L.L.CJose Antonio 5 07:56:23 Type 2 diabetes mellitus 55751711 Active 2022 ELVIA jeter [facility] L.LJose AntonioCJose Antonio 3 11:57:16 Hypercho lesterol emia 82191145 Active 2022 eDlmy jeter, [facility], L.L.CJose Antonio 5 07:56:23 Ulcer of toe 579908946 Active 2022 Cha Griggs, DO [address] [place] [address], [phone] , [facility], Mandy.L.CJose Antonio 3 09:38:37 [facility] hyperten sai 54820380 Active 2022 Delmy jeter, [facility], L.L.CJose Antonio 5 07:56:23 Atrial fibrilla tion 46659314 Active 2023 Delmy jeter [facility], L.L.CJose Antonio 5 07:55:39 Age related macular degenera tion 796917609 Active 2023 Delmy jeter, [facility]. 5 07:55:35 Congesti ve heart failure 31000693 Active 2023 Delmy jeter [facility]. 5 07:55:51 Chronic kidney disease stage 3B 379193588 Active 2023 Delmy jeter [facility]. 5 07:55:45 Edema of lower extremit y 853128939 Active 2023 Delmy jeter [facility]. 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 948779547 Active 2024 Delmy jeter [facility], HanselCJose Antonio 5 07:56:23 Dysarthr ia due to and followin g cerebrov ascular accident 16451303524 9103 Active 2024 Delmy jeter [facility], CandelariaLJose AntonioCJose Antonio 5 07:56:23 Abnormal gait due to muscle weakness 514433357 Active 2024 Delmy jeter [facility], CandelariaLJose AntonioCJose Antonio 5 07:56:23 Right carotid artery stenosis 04165827265 9100 Active 2024 Delmy jeter [facility], L.L.CJose Antonio 5 11:28:49 Chronic bronchit is 19413300 Active 2024 Delmy jeter [facility], L.L.CJose Antonio 5 11:28:47 Primary biliary cholangi tis 83047801 Active 2024 Cha Griggs, [address], [address] , [facility], CandelariaLJose AntonioCJose Antonio 5 11:27:33 Difficul ty sleeping 078595338 Active 2024 Rafiq jeter [facility], L.LJose AntonioCJose Antonio 5 17:35:55 Closed fracture of hip 306733208 [facility] 16:41:22 Bilatera l lower limb edema 542633598 Active 2024 ERIC jeter, [facility] 12:49:21 Pneumoni a 641180525 [facility] 12:47:01 Post-dis charge follow-u p 229129510 Active 2024 [facility] 14:47:51 Acute exacerba tion of chronic congesti ve heart failure 174001575 Active 2024 [facility] 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 14:47:53 Obstruct victorina sleep apnea syndrome 92228675 Active 2024 [facility] 14:47:56 Chronic atrial fibrilla tion 253225836 Active 2024 [facility] 14:47:57 Chronic kidney disease stage 3A 270246524 Active 2024 [facility] 14:47:59 Notes:Some problems listed i n Documents: #[id number], #[id number], #[id number], #[id number] could not be added to this patient's chart. Please review these documents and add these problems to the patient's chart manually as needed. Problem Notes None recorded. Procedures Surgical History Date Name Laterality Status Provider Name and Address Organization Details Recorded Time tonsillectomy completed ALEXIA BURCIAGA [facility], LJose AntonioLLaura 05/25/2024 11:58:08 Cholecystectomy completed ALEXIA PATRICA [facility], LJose AntonioLLaura 05/25/2024 11:58:14 Imaging Results None recorded. Procedure Notes None recorded. Medical Equipment None Reported. Allergies Allergen ID Allergen Name Allergen Category Reaction Reaction Severity Criticality Documentation Date Start Date Code Code System Note Provider Name and Address Organization Details Recorded Time 59 lovastati n medicatio n Not available Not available Not available 06/06/2022 6472 RxNorm Sondra Quick [facility], LJose AntonioLLaura 12:00:13 97448 Product containin g 3-hydroxy -3-methyl glutaryl- coenzyme A reductase inhibitor (product) medicatio n itching Not available low 02/03/20252022 46010 009 SNOMED Not Available [place] - External Data Service - prod 18:04:07 Medications Name Sig Start Date Stop Date Status Note LastModified by Organization Details LastModified Time Prescript ion - New 09/22 completed Not Available Not Available Not Available Prescript ion - Prior Authoriza tion Request active Harrison 5/325 Not Available Not Available Not Available [...] completed Recorded 04/07/19 23 1:15PM by Cha Griggs DO, Office Visit; Refill Quantity : 0; [...] Not Available loratadin e daily 12/24 completed 65393; Recorded 10/16/19 2:59PM by Elvia Singh (Vince martinez through Cha Griggs DO), Office Visit; Not Available Not Available Not Available Lasix every morning 12/24 completed DM/sd; 90301; Recorded 12/12/19 22 1:18PM by Elvia Singh (Authorpasquale martinez through Cha Griggs DO), Refill Request; Refill Quantity : 30; Tablet; Not Available Not Available Not Available fluconazo le daily 12/24 completed 0; Recorded 06/04/19 11:43AM by Pina Smart, Office Visit; Not Available Not Available Not Available carvedilo l two times daily 12/24 completed 90547; Recorded 02/26/20 22 11:07AM by Pina Smart (i michelle through Cha Griggs DO), Office Visit; Refill Quantity : 60; Tablet; Not Available Not Available Not Available hydralazi ne three times daily 12/24 completed DM/sd; 72792; Recorded 01/22/20 10:41AM by Rafiq Medellin (Authori zed through [employer] , DO), Office Visit; Refill Quantity : 0; Not Available Not Available Not Available lisinopri l daily 12/24 completed 00957; Recorded 11/13/19 9:23AM by Rafiq Medellin (Authori elizabethd through [employer] , DO), Office Visit; Refill Quantity : 90; Tablet; Not Available Not Available Not Available sildenafi l daily 12/24 completed 63407; Recorded 10/16/19 2:59PM by Elvia Singh (Authori elizabethd through [employer] , DO), Office Visit; Not Available Not Available Not Available glipizide daily 12/24 completed 78377; Recorded 11/13/19 9:23AM by Rafiq Medellin (Authori zed through [employer] , DO), Office Visit; Not Available Not Available Not Available multivita min active Not Available Not Available Not Available Potassium Chloride ER two times daily 12/24 completed DM/sd; 82509; Recorded 03/27/19 1:52PM by Elvia Singh (Authori michelle through [employer] , DO), Annotati on/Adden dum; Refill Quantity [...] Available Eliquis two times daily 12/24 completed 14251; Recorded 11/13/19 22 9:23AM by Rafiq Medellin (Vince martinez through Cha Griggs DO), Office Visit; Refill Quantity : 60; Tablet; Not Available Not Available Not Available potassium chloride ER 20 mEq tablet,ex tended release Take 1 tablet every day by oral route. 06/21 completed Not Available Not Available Not Available FreeStyle Kalani 2 Sensor as directed 05/25 completed Not Available Not Available Not Available FreeStyle Kalani 2 [place] as directed 05/25 completed Not Available Not [...] Updated DateTime 5 187.96 cm 34.3 kg/m2 799679. 16 g 77 /min 20 /min 99.3 [degF] 98 % 128/60 mm[Hg] ERIC JARAMILLO [facility] 5 16:10:12 Social History Question Answer Notes LastModified by [email or web address] Details LastModified Time Tobacco Smoking Status Former Smoker Edvin Jordan steffany [facility] 10/05/2023 09:45:48 What Is Your Level Of Caffeine Consumption? Moderate Coffee [email or web address] Information not available 05/25/2024 How Many Years Have You Smoked Tobacco? 20 [email or web address] Information not available 10/05/2023 Sex: Unknown Functional Status Question Answer Note LastModified by [email or web address] Details LastModified Time Do you use any illicit or recreational drugs? No [email or web address] Information not available 08/14/2022 Do you or have you ever used any other forms of tobacco or nicotine? No [email or web address] Information not available 08/14/2022 What is your level of alcohol consumption? None Information not available 08/14/2022 Are you currently employed? No Information not available 05/25/2024 Are you able to walk independently without assistance or assistive devices? [email or web address] Information not available 05/25/2024 Are you able to care for yourself independently? Yes [email or web address] Information not available 05/25/2024 Mental Status None recorded. Family History Relationship Description Onset Age of this Age Resolved Age Notes LastModified by Organization Details LastModified Time Father Diabetes mellitus [email or web address] Not available 05/25 11:55:50 Father Motor vehicle accident age 50 [email or web address] Not available 05/25/2024 11:56:43 Mother Malignant neoplasm of colon age 73 [email or web address] Not available 05/25/2024 11:56:22 Paternal Grandmother Natural age 102 [email or web address] Not available 05/25/2024 11:57:08 Medical History Condition Response Coronary Artery Disease N Gout N Other Y Blood Diseases N Kidney Stones N Hyperthyroidism N Blood Transfusion N Breast Cancer N COPD N Lung Disease N Hypothyroidism N Depression N Defects or Inherited Disease [...] Recorded Time zoster recombinant 2 completed Cha Griggs, [address] [place] [address], [phone], [facility] 04/22/2023 11:34:44 zoster recombinant 2 completed Cha Griggs DO [address] [place] [address], [phone], [facility] 04/22/2023 11:34:44 Influenza, high-dose, quadrivalent, PF 2 completed Cha Griggs, [address] [place] [address], [address], [facility] 04/22/2023 11:34:45 COVID-19, mRNA, LNP-S, PF, 100 mcg/0.5mL dose or 50 mcg/0.25mL dose 1 completed Cha Griggs DO [address] [place] [address], [phone], [facility] 04/22/2023 11:34:45 COVID-19, mRNA, LNP-S, PF, 100 mcg/0.5mL dose or 50 mcg/0.25mL dose 1 completed Cha Griggs DO [address] [place] [address], [address], [facility] 04/22/2023 11:34:45 COVID-19, mRNA, LNP-S, PF, 100 mcg/0.5mL dose or 50 mcg/0.25mL dose 1 completed Cha Griggs DO [address] [place] [address], [address], [facility] 04/22/2023 11:34:45 COVID-19, mRNA, LNP-S, bivalent, PF, 50 mcg/0.5 mL or 25mcg/0.25 mL dose 2 completed Cha Griggs DO [address] [place], [address], [place] [facility] 04/22/2023 11:34:45 pneumococcal polysaccharide PPV23 8 completed Cha Griggs DO [address] [place], [address], [place] [facility] L.L.CJose Antonio 04/22/2023 11:34:45 Pneumococcal conjugate PCV 13 9 completed Cha Griggs DO [address] [place] [address], [address], [place] [facility], LJose AntonioL.C. 04/22/2023 11:34:45 Influenza, high-dose, quadrivalent, PF 3 completed Delmy jeter [facility], CandelariaL.CJose Antonio 06/21/2024 09:00:08 COVID-19, mRNA, LNP-S, PF, 50 mcg/0.5 mL 3 completed Delmy jeter [facility], LJose AntonioLJose AntonioCJose Antonio 06/21/2024 09:00:08 Pneumococcal conjugate PCV20, polysaccharide XQQ730 conjugate, adjuvant, PF 4 completed Cha Griggs DO [address] [place] [address], [address], [facility], L.LJose AntonioCJose Antonio 04/23/2023 08:45:56 Influenza, split virus, trivalent, PF 4 completed PINA jeter [facility], LJose AntonioLJose AntonioCJose Antonio 12/28/2023 11:39:19 Past Encounters Encounter ID Performer Location Encounter Start Date Encounter Closed Date Diagnosis/Indication Diagnosis SNOMED-CT Code Diagnosis ICD10 Code Diagnosis IMO Codes Diagnosis Note [id number] Juancarlos Lassiter DO [facility] ([facility]) [address] [place] [address] 02/27/2025 13:52:18 03/02/2025 16:33:44 Post-discharge follow-up 992637475 Z51.89 799014 History of amputation of right leg through tibia and fibula 7828202788 73096 Z89.511 8415336181 Essential hypertension 50562655 I10 Congestive heart failure 04365451 I11.0 Chronic at rial fibrillation 546644577 I48.20 194659 Health Concerns Section Related Observation LastModified by Organization Detai ls LastModified Time None Recorded Concern Status LastModified by Organization Details LastModified Time None Recorded Payers Encounter Date Sequence Insurance Name Policy Number Policy Mc Covered Member ID Mc Member ID Guarantor Name 02/27/2025 1 [place] Andrés Dumont [id number] Andrés Dumont 02/27/2025 2 [employer] (MEDICARE SUPPLEMENT) Andrés Dumont [id number] Andrés Dumont Notes Date Note Type Note Provider Name and Address Organization Details Recorded Time 5 text/html HypertensionReported by PatientHPIFor severity, patient reportsgrade 1 (130-139/80-89). For duration, patient reportshas noted for years. 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
--- NOTE | 2025-03-04 18:32 | XRR_ITS ---
PROCEDURE INFORMATION: Exam: XR Chest Exam date and time: 03/04/2025 6:45 PM Age: 79 years old Clinical indication: Shortness of breath; Additional info: SOB TECHNIQUE: Imaging protocol: Radiologic exam of the chest. Views: 1 view. COMPARISON: CR XR chest 1V portable [id number] 01/13/2025 10:34 AM FINDINGS: Lungs: Probable small effusion with possible infiltrate versus atelectasis along the right heart border. Pleural spaces: Unremarkable. No pleural effusion. No pneumothorax. Heart/Mediastinum: Mild cardiomegaly. Vasculature: Aortic atherosclerosis. Bones/joints: Probable old right-sided rib fractures. XR/XR chest 1V portable [id number] IMPRESSION: Probable small effusion with possible infiltrate versus atelectasis along the right heart border.
--- NOTE | 2025-03-04 18:32 | CTR_ITS ---
PROCEDURE INFORMATION: Exam: CT Head Without Contrast Exam date and time: 03/04/2025 6:53 PM Age: 79 years old Clinical indication: Lethargy with hypoglycemia TECHNIQUE: Imaging protocol: Computed tomography of the head without contrast. Radiation optimization: All CT scans at this facility use at least one of these dose optimization techniques: automated exposure control; mA and/or kV adjustment per patient size (includes targeted exams where dose is matched to clinical indication); or iterative reconstruction. COMPARISON: MR head wo con* [id number] 12/28/2024 9:46 AM RADIATION DOSE METRICS: Total DLP (mGy-cm): 1111.28 FINDINGS: Brain: Chronic small-vessel ischemic change. Encephalomalacia changes of the posterior right parietal lobe. Cerebral ventricles: Involutional changes of the ventricles and sulci, mild. Paranasal sinuses: Bilateral maxillary sinus disease. Mastoid air cells: Visualized mastoid air cells are well aerated. Bones: Vertebral and carotid atheromatous vascular calcifications. Soft tissues: Unremarkable. CT/CT head wo con* [id number] IMPRESSION: No acute intracranial abnormality.
--- NOTE | 2025-03-04 18:33 | ECG_ITS ---
[facility] Test Date: 2025-03-04 Pat Name: Andrés Dumont Department: Room: Gender: Male Dietetic Assistant: : 1945 Requested By: Dong El Order Number: [id number] Mattson MD: Will Jones M.D. Measurements Intervals [place] Rate: 49 P: 0 [place]: 0 QRS: -81 QRSD: 88 T: 60 QT: 449 QTc: 406 Interpretive Statements ATRIAL FIBRILLATION WITH SLOW VENTRICULAR RESPONSE LEFT AXIS DEVIATION [QRS AXIS < -30] LOW QRS VOLTAGE IN EXTREMITY LEADS [QRS DEFLECTION < 0.5 mV IN LIMB LEADS] Compared to ECG 02/10/2025 15:03:44 NO SIGNIFICANT CHANGE Electronically Signed On 03-04-2025 19:17:45 ANIMAL SERVICES OFFICER by Will Jones M.D. [email or web address]
[2025-03-04 18:39] LABS: Hematocrit 29.7 % (37-53); Hemoglobin 8.70 g/dL (11.27-16.99); Mean Corpuscular HGB Conc 29.3 g/dL (30-55); Mean Corpuscular Hemoglobin 25.9 pg (27-33); Mean Corpuscular Volume 88.4 fl (82-101); Nucleated Red Blood Cells % 0 %; Platelet Count 448 10^3/cmm (157-399); Red Blood Count 3.36 10^6/uL (3.85-5.65); White Blood Count 8.88 10^3/uL (3.29-11.43)
[2025-03-04 18:47] LABS: ABG PCO2 43.0 mmHg (35-45); ABG PH Result 7.38 (7.35-7.45); Arterial Blood Gas Hematocrit 26.3 % (42-52); Blood Gas Allen Test Pos; Blood Gas LPM 2.0 %; Blood Gas Operator Identificat glc; Blood Gas Sample Site Radial, right; Blood Gas Sample Type Arterial; HCO3 ABG 25.7 mmol/L (22-26); PO2 ABG 92.5 mmHg (80.0-100.0); PO2 FiO2 Ratio Arterial Blood 330
[2025-03-04 18:50] LABS: INR 1.13 (0.8-1.2); Prothrombin Time 15.30 SECONDS (12.1-14.9)
--- NOTE | 2025-03-04 18:50 | CTR_ITS ---
PROCEDURE INFORMATION: Exam: CT Chest With Contrast; Diagnostic Exam date and time: 03/04/2025 6:57 PM Age: 79 years old Clinical indication: Shortness of breath and wheezing and other: Pleural effusion; Prior surgery; Surgery date: 6+ months; Surgery type: Gb. RT inguinal hernia. Troch nail; Hypoglycemia with wheezing and SOB. Pleural effusion on cxr. Andrew. History of chf. ; Additional info: AMS, SOB, R sided pleural effusion TECHNIQUE: Imaging protocol: Diagnostic computed tomography of the chest with contrast. Radiation optimization: All CT scans at this facility use at least one of these dose optimization techniques: automated exposure control; mA and/or kV adjustment per patient size (includes targeted exams where dose is matched to clinical indication); or iterative reconstruction. Contrast material: OMNI 350; Contrast volume: 80 ml; Contrast route: INTRAVENOUS (IV); COMPARISON: CR (CHEST, ) 03/04/2025 6:45 PM RADIATION DOSE METRICS: Total DLP (mGy-cm): 2159.4 FINDINGS: Lungs: Moderate right and mild left effusion with associated compressive atelectasis, superimposed infection not excluded. Pleural spaces: Unremarkable. No pneumothorax. No pleural effusion. Heart: Unremarkable. No cardiomegaly. No pericardial effusion. Lymph nodes: Unremarkable. No enlarged lymph nodes. Vasculature: Aortic and coronary atherosclerosis. Bones/joints: Unremarkable. No acute fracture. Soft tissues: Unremarkable. PROCEDURE INFORMATION: Exam: CT Abdomen And Pelvis With Contrast Exam date and time: 03/04/2025 6:57 PM Age: 79 years old Clinical indication: Shortness of breath and wheezing and other: Pleural effusion; Prior surgery; Surgery date: 6+ months; Surgery type: Gb. RT inguinal hernia. Troch nail; Hypoglycemia with wheezing and SOB. Pleural effusion on cxr. Andrew. History of chf. ; Additional info: AMS, SOB, R sided pleural effusion TECHNIQUE: Imaging protocol: Computed tomography of the abdomen and pelvis with contrast. Radiation optimization: All CT scans at this facility use at least one of these dose optimization techniques: automated exposure control; mA and/or kV adjustment per patient size (includes targeted exams where dose is matched to clinical indication); or iterative reconstruction. Contrast material: OMNI 350; Contrast volume: 80 ml; Contrast route: INTRAVENOUS (IV); COMPARISON: CT abdomen pelvis w con* [id number] 07/23/2024 2:29 PM RADIATION DOSE METRICS: Total DLP (mGy-cm): 2159.4 FINDINGS: Liver: Normal. No mass. Gallbladder and biliary ducts: Cholecystectomy clips. Pancreas: Normal. No ductal dilation. Spleen: Normal. No splenomegaly. Adrenal glands: Normal. No mass. Kidneys and ureters: Normal. No hydronephrosis. Stomach and bowel: Unremarkable. No obstruction. No mucosal thickening. Appendix: No evidence of appendicitis. Intraperitoneal space: Unremarkable. No free air. No significant fluid collection. Vasculature: Aortic atherosclerosis. Lymph nodes: Unremarkable. No enlarged lymph nodes. Urinary bladder: Unremarkable as visualized. Reproductive: Unremarkable as visualized. Bones/joints: Postsurgical changes of the right femur. Moderate degenerative changes of the lumbar vertebral bodies. Soft tissues: Unremarkable. CT/CT chest abdpel w/*[id number] IMPRESSION: Moderate right and mild left effusion with associated compressive atelectasis, superimposed infection not excluded. IMPRESSION: No definite acute findings.
[2025-03-04 18:51] LABS: Partial Thromboplastin Time 35.0 SECONDS (23.9-36.7)
[2025-03-04] MEDS: iohexol 350 mg/mL 500 mL Btl (per mL) IV (18:56)
[2025-03-04 19:00] LABS: Lactic Sepsis W/Reflex 1.6 mmol/L (0.5-2.2)
[2025-03-04 19:10] LABS: Alanine Aminotransferase 10 U/L (0-41); Albumin Level 2.8 g/dL (3.5-5.2); Alkaline Phosphatase 129 U/L (40-130); Anion Gap 15.7 (5-19); Aspartate Amino Transferase 17 U/L (0-40); Blood Urea Nitrogen 19 mg/dL (8-23); Calcium 8.1 mg/dL (8.5-10.5); Carbon Dioxide 24 mmol/L (22-29); Chloride 104 mmol/L (98-107); Globulin 3.1 g/dL (1.3-4.6); Glucose 46 mg/dL (65-115); Magnesium 1.9 mg/dL (1.7-2.3); NT Pro B Type Natriuretic Pept 5117 pg/mL (0-450); Osmolality Calculated 289 mOsm/kg (285-295); Potassium 3.7 mmol/L (3.5-5.1); Sodium 140 mmol/L (136-145); Total Protein 5.9 g/dL (6.6-8.7)
[2025-03-04 19:11] LABS: Troponin(5th) Baseline 115 ng/L (0-15)
--- NOTE | 2025-03-04 19:33 | ECG_ITS ---
[facility] Test Date: 2025-03-04 Pat Name: Andrés Dumont Department: Room: Gender: Male Digital Director: : 1945 Requested By: Dong El Order Number: [id number] Twila MD: Will Jones M.D. Measurements Intervals [place] Rate: 52 P: 0 [place]: 0 QRS: -81 QRSD: 90 T: 28 QT: 439 QTc: 412 Interpretive Statements ATRIAL FIBRILLATION WITH SLOW VENTRICULAR RESPONSE LEFT AXIS DEVIATION [QRS AXIS < -30] LOW QRS VOLTAGE [QRS DEFLECTION < 0.5/1.0 mV IN LIMB/CHEST LEADS] Compared to ECG 03/04/2025 19:09:20 No significant changes Electronically Signed On 03-05-2025 17:05:05 SOFTWARE PACKAGER by Will Jones M.D. [email or web address]
[2025-03-04 20:33] LABS: Glucose Urine UA Negative (Normal); Nitrate Urine Negative (Negative); Specific Gravity, Urine 1.018 (1.005-1.030)
--- NOTE | 2025-03-04 20:37 | W.ED.GENADLT ---
HPI - General Adult General: Chief complaint: General Medical Stated complaint: hypoglycemia; bradycardia Time Seen by Provider: 03/04/25 18:00 History of Present Illness: Patient is a 79-year-old male resident of [facility] who presented with altered mental status, hypoglycemia, and respiratory distress. Per nursing staff report, the patient was doing well earlier today and was noted to be more alert than usual, even sitting in a wheelchair, which he reportedly has not done in several weeks. However, his condition deteriorated with development of somnolence, respiratory distress, and hypoglycemia with blood glucose measured at 53 mg/dL. Staff reports that the patient is occasionally on supplemental oxygen but does not use it continuously. There is mention of a recent operation, though specific details are not provided. The patient was also noted to have had 'a little bit of a bad stool' recently. Related Data Home Medications ?Medication ?Instructions ?Recorded ?Confirmed pantoprazole 40 mg tablet,delayed 40 mg PO DAILY 11/19/20 02/11/25 release multivitamin (Multiple Vitamins 1 tab PO DAILY 03/28/24 02/11/25 tablet) albuterol sulfate 90 mcg/actuation 1 puff inhalation .Q4H PRN 07/23/24 02/11/25 aerosol inhaler Shortness Of Breath acetaminophen 325 mg capsule 650 mg PO QID PRN Pain 12/26/24 02/11/25 amiodarone 200 mg tablet 200 mg PO DAILY 12/26/24 02/11/25 sertraline 100 mg tablet 100 mg PO BEDTIME 12/26/24 02/11/25 bisacodyl 10 mg rectal suppository 10 mg [place] DAILY PRN constipation 12/27/24 02/11/25 budesonide 32 mcg/actuation nasal 1 spray intranasal BID 12/27/24 02/11/25 spray insulin lispro 100 unit/mL 12 unit SUBCUT TID type 2 diabetes 12/27/24 02/11/25 subcutaneous pen (Humalog KwikPen (U-100) Insulin) rivaroxaban 20 mg tablet (Xarelto) 20 mg PO QPM 12/27/24 02/11/25 rosuvastatin 40 mg tablet 40 mg PO BEDTIME 12/27/24 02/11/25 sodium phosphates 19 gram-7 118 ml [place] DAILY PRN Constipation 12/27/24 02/11/25 gram/118 mL enema (Fleet Enema) tamsulosin 0.4 mg capsule (Flomax) 0.4 mg PO BEDTIME 12/27/24 02/11/25 lidocaine HCl 2 % mucosal jelly See Rx Instructions .Route 01/13/25 02/11/25 .COMPLEX PRN Pain polyethylene glycol 3350 17 17 g PO DAILY 01/13/25 02/11/25 gram/dose oral powder (Miralax) Lactobacillus rhamnosus GG 10 1 cap PO BID 02/11/25 02/11/25 billion cell capsule (Culturelle) cephalexin 500 mg capsule 500 mg PO QID 02/11/25 02/11/25 metolazone 2.5 mg tablet See Rx Instructions .Route .COMPLEX 02/11/25 02/11/25 potassium chloride 10 mEq 40 meq PO DAILY 02/11/25 02/11/25 capsule,extended release Previous Rx's ?Medication ?Instructions ?Recorded cetirizine 5 mg tablet (Allergy 5 mg PO QPM PRN Allergy Symptoms 12/29/24 Relief (cetirizine)) #1 tab hydrocodone 5 mg-acetaminophen 325 1 tab PO Q6H PRN Pain, Moderate #1 12/29/24 mg tablet tab melatonin 3 mg tablet 3 mg PO BEDTIME PRN Sleep #1 tab 12/29/24 bumetanide 2 mg tablet 2 mg PO DAILY #30 tabs 01/17/25 clopidogrel 75 mg tablet 75 mg PO DAILY #30 tabs 01/17/25 dapagliflozin propanediol 5 mg 5 mg PO DAILY #30 tabs 01/17/25 tablet insulin glargine 100 unit/mL (3 40 unit (0.4 mL) SUBCUT BEDTIME 01/17/25 mL) subcutaneous pen (Lantus #0.01 mL Solostar U-100 Insulin) ipratropium 0.5 mg-albuterol 3 mg 3 ml inhalation Q6H PRN Shortness 01/17/25 (2.5 mg base)/3 mL nebulization Of Breath #90 mL soln levothyroxine 100 mcg tablet 100 mcg PO QAM #30 tabs 01/17/25 (Levoxyl) magnesium oxide 400 mg (241.3 mg 400 mg PO BID #60 tabs 01/17/25 magnesium) tablet metoprolol tartrate 25 mg tablet 25 mg PO BID@0900,2100 #60 tabs 01/17/25 ursodiol 300 mg capsule 300 mg PO 2XD #60 caps 01/17/25 Allergies Allergy/AdvReac Type Severity Reaction Status Date / Time lovastatin Allergy RASH Verified 01/02/25 13:58 blood Allergy Unknown Bahai Uncoded 01/02/25 13:58 witness [facility] PFSH: Medical History (Updated 03/05/25 @ 18:22 by Dong Dooley DO) Atrial fibrillation, controlled Hypothyroidism Obesity (BMI 30-39.9) Sleep apnea Hypertension Anticoagulation adequate with anticoagulant therapy Atrial fibrillation with controlled ventricular rate BPH (benign prostatic hyperplasia) Mass of right kidney Diabetes mellitus Acute cholecystitis Callus of foot Chronic ulcer of great toe of right foot, limited to breakdown of skin Hamm[place]oe Peripheral arterial disease Diabetic peripheral neuropathy associated with type 2 diabetes mellitus Diabetes mellitus GERD (gastroesophageal reflux disease) Venous insufficiency Prostatitis, acute Acute cystitis with hematuria Surgical History Hx of cholecystectomy Status post right inguinal hernia repair Status post colonoscopy (12/13/20) descending colon polyp H/O esophagogastroduodenoscopy (12/13/20) normal Hx of tonsillectomy Family History Mother , AT AGE 73 Cancer COLON Father , AT AGE 50 Diabetes Social History (Updated 03/04/25 @ 22:36 by Devonte Jose MD) Smoking and tobacco/nicotine status: former use of tobacco/nicotine (quit in 1974) Alcohol intake: current Alcohol intake frequency: holidays/special occasions only Additional social history: Patient wants full CODE STATUS as discussed with Devonte Jose MD on 03/04/2025. He does not want prolonged life support. He is Bahai and does not want a blood transfusion even if he is dying. Confirmed with his daughter Lilian at bedside Marital status: Current occupational status: retired Previous occupational history: Retired [employer] Vital Signs: Vital signs: Vital Signs Temperature 98.4 F 03/05/25 05:00 Pulse Rate 75 03/05/25 15:45 Respiratory Rate 15 03/05/25 15:45 Blood Pressure 122/58 03/05/25 15:45 Pulse Oximetry 96 03/05/25 15:45 Oxygen Delivery Me thod Nasal Cannula 03/05/25 15:45 Oxygen Flow Rate 2 03/05/25 00:00 Fraction of Inspir ed Oxygen 25 03/05/25 07:41 MDM - General Adult Medical Decision Making 79-year-old gentleman. Initially mildly hypotensive. He is afebrile. Hemoglobin is 8.7. Creatinine is baseline at 2. Chest x-ray shows effusion, chest abdomen pelvis CT shows moderate right and mild left pleural effusions with compressive atelectasis. Belly shows no acute findings. He has been given Lasix here. CRP is minimally elevated at 19. His TSH is high. Lactic acid is normal at 1.6. He is oxygen dependent. Anemic. Has bilateral pleural effusions. He will require diuresis with close monitoring of his renal function. Spoke with hospitalist. He is going to admit. He will see the patient in the ER. Lab Data 03/04/25 18:08 03/05/25 00:28 Radiology Impressions Chest X-Ray 03/04/25 18:32 IMPRESSION: Probable small effusion with possible infiltrate versus atelectasis along the right heart border. Head CT 03/04/25 18:32 IMPRESSION: No acute intracranial abnormality. Chest/Abdomen/Pelvis CT 03/04/25 18:50 IMPRESSION: Moderate right and mild left effusion with associated compressive atelectasis, superimposed infection not excluded. IMPRESSION: No definite acute findings. Laboratory Results WBC 8.88 10^3/uL (3.29-11.43) 03/04/25 18:08 RBC 3.36 10^6/uL (3.85-5.65) L 03/04/25 18:08 Hgb 8.70 g/dL (11.27-16.99) L 03/04/25 18:08 Hct 29.7 % (37-53) L 03/04/25 18:08 MCV 88.4 fl (82-101) 03/04/25 18:08 MCH 25.9 pg (27-33) L 03/04/25 18:08 MCHC 29.3 g/dL (30-55) L 03/04/25 18:08 RDW 20.3 % (12.1-15.1) H 03/04/25 18:08 Plt Count 448 10^3/cmm (157-399) H 03/04/25 18:08 MPV 9.1 fL (7.4-10.4) 03/04/25 18:08 Neut % (Auto) 68.1 % 03/04/25 18:08 Lymph % (Auto) 13.3 % 03/04/25 18:08 Nuckolls % (Auto) 11.0 % 03/04/25 18:08 Eos % (Auto) 6.6 % 03/04/25 18:08 Baso % (Auto) 0.3 % 03/04/25 18:08 Neut # (Auto) 6.04 10^3/uL (1.8-7.7) 03/04/25 18:08 Lymph # (Auto) 1.2 10^3/uL (0.8-4.8) 03/04/25 18:08 Nuckolls # (Auto) 1.0 10^3/uL (0.2-0.9) H 03/04/25 18:08 Eos # (Auto) 0.6 10^3/uL (0.0-0.8) 03/04/25 18:08 Baso # (Auto) 0.0 10^3/uL (0.0-0.1) 03/04/25 18:08 Nucleated RBC % (auto) 0 % 03/04/25 18:08 Nucleated RBCs # 0.0 /100WBC 03/04/25 18:08 PT 15.30 SECONDS (12.1-14.9) H 03/04/25 18:08 INR 1.13 (0.8-1.2) 03/04/25 18:08 APTT 35.0 SECONDS (23.9-36.7) 03/04/25 18:08 Specimen Type Arterial 03/04/25 18:36 Sample Site Radial, right 03/04/25 18:36 ABG pH 7.38 (7.35-7.45) 03/04/25 18:36 ABG pCO2 43.0 mmHg (35-45) 03/04/25 18:36 ABG pO2 92.5 mmHg (80.0-100.0) 03/04/25 18:36 ABG PO2/FiO2 Ratio 330 03/04/25 18:36 ABG HCO3 25.7 mmol/L (22-26) 03/04/25 18:36 ABG Base Excess 0.5 mmol/L (-2.0-2.0) 03/04/25 18:36 Todd Test Pos 03/04/25 18:36 Hematocrit 26.3 % (42-52) L 03/04/25 18:36 O2 Delivery Device Nc 03/04/25 18:36 O2 Liters/Min 2.0 % 03/04/25 18:36 FiO2 28.0 % 03/04/25 18:36 Optometrist/Practice Owner ID [email or web address] 03/04/25 18:36 Sodium 140 mmol/L (136-145) 03/04/25 18:08 Potassium 3.7 mmol/L (3.5-5.1) 03/04/25 18:08 Chloride 104 mmol/L (98-107) 03/04/25 18:08 Carbon Dioxide 24 mmol/L (22-29) 03/04/25 18:08 Anion Gap 15.7 (5-19) 03/04/25 18:08 BUN 19 mg/dL (8-23) 03/04/25 18:08 Creatinine 2.2 mg/dL (0.7-1.2) H 03/04/25 18:08 GFR Calculation Not Reportable 03/04/25 18:08 Glucose 46 mg/dL (65-115) L 03/04/25 18:08 POC Glucose 99 mg/dL (70-110) 03/04/25 21:49 Calculated Osmolality 289 mOsm/kg (285-295) 03/04/25 18:08 Lactic Acid 1.6 mmol/L (0.5-2.2) 03/04/25 18:08 Uric Acid 6.0 mg/dL (3.4-7.0) 03/04/25 18:08 Calcium 8.1 mg/dL (8.5-10.5) L 03/04/25 18:08 Magnesium 1.9 mg/dL (1.7-2.3) 03/04/25 18:08 Iron 22 ug/dL (59-158) L 03/04/25 18:08 TIBC 231 mcg/dl 03/04/25 18:08 % Saturation 9.5 % (20-50) L 03/04/25 18:08 Unsat Iron Binding 209 ug/dL (112-347) 03/04/25 18:08 Total Bilirubin 0.3 mg/dL (0.15-1.2) 03/04/25 18:08 AST 17 U/L (0-40) 03/04/25 18:08 ALT 10 U/L (0-41) 03/04/25 18:08 Alkaline Phosphatase 129 U/L (40-130) 03/04/25 18:08 Troponin T Baseline 115 ng/L (0-15) H* 03/04/25 18:08 Troponin T 60 Minute 110.6 ng/L (0-15) H 03/04/25 19:28 Delta Troponin T -4.4 ABS# (0-10) L 03/04/25 19:28 C-Reactive Protein 19.1 mg/L (0.0-4.9) H 03/04/25 18:08 NT-Pro-B Natriuret Pep 5117 pg/mL (0-450) H 03/04/25 18:08 Total Protein 5.9 g/dL (6.6-8.7) L 03/04/25 18:08 Albumin 2.8 g/dL (3.5-5.2) L 03/04/25 18:08 Globulin 3.1 g/dL (1.3-4.6) 03/04/25 18:08 TSH 55.56 uIU/mL (0.27-4.20) H 03/04/25 18:08 Free T4 0.33 ng/dL (0.82-1.77) L 03/04/25 18:08 Random Cortisol 11.48 ug/dL (2.47-19.5) 03/04/25 18:08 Urine Color Yellow (Yellow) 03/04/25: Urine Appearance Clear (CLEAR) 03/04/25: Urine pH 5.0 (5-7) 03/04/25: Ur Specific [place] 1.018 (1.005-1.030) 03/04/25 20: Urine Protein 1+ (Negative) A 03/04/25: Urine Glucose (UA) Negative (Normal) 03/04/25: Urine Ketones Negative (Negative) 03/04/25: Urine Blood Negative (Negative) 03/04/25 20: Urine Nitrate Negative (Negative) 03/04/25 20: Urine Bilirubin Negative (Negative) 03/04/25 20: Urine Urobilinogen 0.2 mg/dL (Negative) 03/04/25 20: Ur Leukocyte Esterase Negative (Negative) 03/04/25 20: Urine RBC 0-2 /hpf (0-2) 03/04/25 20: Urine WBC 0-5 /hpf (0-5) 03/04/25 20: Ur Squamous Epith Cells 0-5 /hpf (0-5) 03/04/25 20: Amorphous Sediment Not Reportable 03/04/25 20: Urine Bacteria None seen /hpf (NONE) 03/04/25 20: Hyaline Casts 15.28 /lpf 03/04/25 20:26 All radiology interpretation(s) finalized by discharge EKG Data EKG 1: Interpretation: EKG time 1908 read 1911 shows atrial fibrillation with slow response. Rate of 50. QTc is 418. No ST wave changes. [place] is normal. Computer generated interpretation: Chest X-Ray 03/04/25 18:32 IMPRESSION: Probable small effusion with possible infiltrate versus atelectasis along the right heart border. Head CT 03/04/25 18:32 IMPRESSION: No acute intracranial abnormality. Chest/Abdomen/Pelvis CT 03/04/25 18:50 IMPRESSION: Moderate right and mild left effusion with associated compressive atelectasis, superimposed infection not excluded. IMPRESSION: No definite acute findings. Discharge Plan Discharge Patient Disposition: Admitted As Inpatient Admit Provider: Devonte Jose Clinical Impression: Atrial fibrillation with controlled ventricular rate, CHF exacerbation Condition: Stable Coding Level of Care Code ED Mixer Runner for Lois Greco
[2025-03-04 20:38] LABS: Add Urine Microscopic? YES; Universal Test for UA Present (0)
[2025-03-04] MEDS: FUROsemide 10 mg/mL SDV 10mL 80 MG IVP (21:02)
[2025-03-04 22:27] LABS: Free T4 Free Thyroxine 0.33 ng/dL (0.82-1.77); Thyroid Stimulating Hormone 55.56 uIU/mL (0.27-4.20); Uric Acid 6.0 mg/dL (3.4-7.0)
--- NOTE | 2025-03-04 22:29 | PM.HP ---
Providers/Chief Complaint Admitting Physician: Devonte Jose MD Primary Care Provider: Humberto Griggs DO Chief Complaint: hypoglycemia; bradycardia History of Present Illness Andrés Dumont is a 79 year old male brought in with hypotension and bradycardia from [facility]. Patient had a right BKA performed at [facility] 3 weeks ago on a possibly February 09. Daughter present at bedside states the patient was doing well early this morning visiting with friends but this afternoon his Karina called and stated that he had hypoglycemia and lethargy. He was unresponsive here until nurse placed his Huber. Since then he has been complaining of some dysuria with the catheter though urine is negative for infection. I note that in February he had TSH of 27.46 and I started him on levothyroxine and in January TSH still high at 12.63But TSH but free T4 was low normal at 0.92 and T3 was low but dose was not adjusted. He is on amiodarone which I think is causing his hypothyroidism and I started him on 100 mcg levothyroxine daily which he is still on. Patient admits to sleeping a lot i.e. 12 to 13 hours a day since his surgery poor appetite losing weight not eating much. He had some confusion and drowsiness today he has generalized edema. Patient is Amish and does not want blood transfusions even if dying. He does want full CODE STATUS but not prolong life support Review of Systems Narrative: General he has had edema but generalized weight loss poor appetite he is cold drowsy sleeping a lot but denies constipation Cardiovascular no chest pain palpitations he does have edema Respiratory no shortness of breath cough wheezing he does have sleep apnea is on CPAP GI no nausea vomiting he has 2 bowel movements a day generally and at least 1 a day almost every day. He did not have a bowel movement yesterday did not have dysuria until his Huber catheter was placed Neuro history of strokes earlier this year he is on Xarelto for A-fib Heme no history of blood clots in legs or lungs Medications/Allergies Home Medications ?Medication ?Instructions ?Recorded ?Confirmed ?Last Taken ?Type pantoprazole 40 mg tablet,delayed 40 mg PO DAILY 11/19/20 02/11/25 02/10/25 06:00 History release multivitamin (Multiple Vitamins 1 tab PO DAILY 03/28/24 02/11/25 02/10/25 06:00 History tablet) albuterol sulfate 90 mcg/actuation 1 puff inhalation .Q4H PRN 07/23/24 02/11/25 Unknown History aerosol inhaler Shortness Of Breath acetaminophen 325 mg capsule 650 mg PO QID PRN Pain 12/26/24 02/11/25 02/08/25 17:35 History amiodarone 200 mg tablet 200 mg PO DAILY 12/26/24 02/11/25 02/10/25 06:00 History sertraline 100 mg tablet 100 mg PO BEDTIME 12/26/24 02/11/25 02/09/25 15:00 History bisacodyl 10 mg rectal suppository 10 mg [place] DAILY PRN constipation 12/27/24 02/11/25 Unknown History budesonide 32 mcg/actuation nasal 1 spray intranasal BID 12/27/24 02/11/25 02/10/25 06:00 History spray insulin lispro 100 unit/mL 12 unit SUBCUT TID type 2 diabetes 12/27/24 02/11/25 02/10/25 11:00 History subcutaneous pen (Humalog KwikPen (U-100) Insulin) rivaroxaban 20 mg tablet (Xarelto) 20 mg PO QPM 12/27/24 02/11/25 02/09/25 17:00 History rosuvastatin 40 mg tablet 40 mg PO BEDTIME 12/27/24 02/11/25 02/09/25 15:00 History sodium phosphates 19 gram-7 118 ml [place] DAILY PRN Constipation 12/27/24 02/11/25 Unknown History gram/118 mL enema (Fleet Enema) tamsulosin 0.4 mg capsule (Flomax) 0.4 mg PO BEDTIME 12/27/24 02/11/25 02/09/25 15:00 History cetirizine 5 mg tablet (Allergy 5 mg PO QPM PRN Allergy Symptoms 12/29/24 02/11/25 12/26/24 19:40 Rx Relief (cetirizine)) #1 tab hydrocodone 5 mg-acetaminophen 325 1 tab PO Q6H PRN Pain, Moderate #1 12/29/24 02/11/25 02/10/25 06:10 Rx mg tablet tab melatonin 3 mg tablet 3 mg PO BEDTIME PRN Sleep #1 tab 1002/11/25 02/08/25 17:35 Rx lidocaine HCl 2 % mucosal jelly See Rx Instructions .Route 01/13/25 02/11/25 02/07/25 07:40 History .COMPLEX PRN Pain polyethylene glycol 3350 17 17 g PO DAILY 01/13/25 02/11/25 02/10/25 06:00 History gram/dose oral powder (Miralax) bumetanide 2 mg tablet 2 mg PO DAILY #30 tabs 01/17/25 02/11/25 02/10/25 06:00 Rx clopidogrel 75 mg tablet 75 mg PO DAILY #30 tabs 01/17/25 02/11/25 02/10/25 06:00 Rx dapagliflozin propanediol 5 mg 5 mg PO DAILY #30 tabs 01/17/25 02/11/25 02/10/25 06:00 Rx tablet insulin glargine 100 unit/mL (3 40 unit (0.4 mL) SUBCUT BEDTIME 01/17/25 02/11/25 02/10/25 20:00 Rx mL) subcutaneous pen (Lantus #0.01 mL Solostar U-100 Insulin) ipratropium 0.5 mg-albuterol 3 mg 3 ml inhalation Q6H PRN Shortness 01/17/25 02/11/25 Unknown Rx (2.5 mg base)/3 mL nebulization Of Breath #90 mL soln levothyroxine 100 mcg tablet 100 mcg PO QAM #30 tabs 01/17/25 02/11/25 02/10/25 06:00 Rx (Levoxyl) magnesium oxide 400 mg (241.3 mg 400 mg PO BID #60 tabs 01/17/25 02/11/25 02/10/25 06:00 Rx magnesium) tablet metoprolol tartrate 25 mg tablet 25 mg PO BID@0900,2100 #60 tabs 01/17/25 02/11/25 02/10/25 06:00 Rx ursodiol 300 mg capsule 300 mg PO 2XD #60 caps 01/17/25 02/11/25 02/10/25 06:00 Rx Lactobacillus rhamnosus GG 10 1 cap PO BID 02/11/25 02/11/25 02/10/25 06:00 History billion cell capsule (Culturelle) cephalexin 500 mg capsule 500 mg PO QID 02/11/25 02/11/25 02/10/25 12:00 History metolazone 2.5 mg tablet See Rx Instructions .Route .COMPLEX 02/11/25 02/11/25 Unknown History potassium chloride 10 mEq 40 meq PO DAILY 02/11/25 02/11/25 02/10/25 06:00 History capsule,extended release Allergies Allergy/AdvReac Type Severity Reaction Status Date / Time lovastatin Allergy RASH Verified 01/02/25 13:58 blood Allergy Unknown Jehovah's Uncoded 01/02/25 13:58 witness PFSH Acute PFSH: Medical History (Updated 03/04/25 @ 22:41 by Devonte Jose MD) Atrial fibrillation, controlled Hypothyroidism Obesity (BMI 30-39.9) Sleep apnea Hypertension Anticoagulation adequate with anticoagulant therapy Atrial fibrillation with controlled ventricular rate BPH (benign prostatic hyperplasia) Mass of right kidney Diabetes mellitus Acute cholecystitis Callus of foot Chronic ulcer of great toe of right foot, limited to breakdown of skin Hammertoe Peripheral arterial disease Diabetic peripheral neuropathy associated with type 2 diabetes mellitus Diabetes mellitus GERD (gastroesophageal reflux disease) Venous insufficiency Prostatitis, acute Acute cystitis with hematuria Surgical History Hx of cholecystectomy Status post right inguinal hernia repair Status post colonoscopy (12/13/20) descending colon polyp H/O esophagogastroduodenoscopy (12/13/20) normal Hx of tonsillectomy Family History Mother , AT AGE 73 Cancer COLON Father , AT AGE 50 Diabetes Social History (Updated 03/04/25 @ 22:36 by Devonte Jose MD) Smoking and tobacco/nicotine status: former use of tobacco/nicotine (quit in 1974) Alcohol intake: current Alcohol intake frequency: holidays/special occasions only Additional social history: Patient wants full CODE STATUS as discussed with Devonte Jose MD on 03/04/2025. He does not want prolonged life support. He is Amish and does not want a blood transfusion even if he is dying. 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 Vitals/I&O/Wt Last Vital Signs Temp 98.1 F 03/04/25 17:54 Pulse 54 L 03/04/25 22:21 Resp 18 03/04/25 22:00 BP 135/66 03/04/25 22:21 Pulse Ox 100 03/04/25 22:21 O2 Del Method Nasal Cannula 03/04/25 19:50 O2 Flow Rate 2 03/04/25 19:50 03/04/25 03/04/25 03/04/25 06:59 14:59 22:59 Intake Total 250 / 250 Balance 250 / 250 Weight last 48 hrs Weight 120.202 kg Physical Exam Narrative: General well-developed well-nourished obese man in no acute cardiopulmonary distress Oropharynx Mallampati 3 supine CV irregular bradycardic rhythm no loud murmur Lungs clear to auscultation bilaterally Abdomen soft obese nontender Arms he has 3+ edema both arms and hands Legs right BKA stump in a dressing which I did not remove Left leg 3+ edema Urinary Catheter Management: Huber: Cath Placed During This Visit: yes Urinary Catheter Date of Insertion: 03/04/25 Urinary Catheter Time of Insertion: 20:42 Data 03/04/25 18:08 03/04/25 18:08 Micro: Microbiology 03/04/25 18:45 Blood Culture - Preliminary Blood SPECIMEN COLLECTED 03/04/25 18:47 Blood Culture - Preliminary Blood SPECIMEN COLLECTED A&P Assessment and plan 1. Hypoglycemia: I think this is related to hypothyroidism and possibly adrenal insufficiency. Cortisol and TSH free T4 to be checked now 2. Hypothyroidism: Give 100 mcg levothyroxine now increase oral levothyroxine to 150 mcg daily starting in the morning 3. Diabetes mellitus: Sliding scale insulin and 1600-calorie weight loss diet no caloric drinks or desserts 4. Obesity (BMI 30-39.9): As above 5. Sleep apnea: Start home CPAP 6. GERD (gastroesophageal reflux disease): Continue proton pump inhibitor 7. Atrial fibrillation, controlled: Rate is controlled borderline slow currently will hold his beta-yany bump up dose of levothyroxine. 8. Anasarca: Patient's albumin is 2.8 will start Glucerna 9. Acute on chronic diastolic (congestive) heart failure: Will change to Bumex and add metolazone. Treat hypothyroidism PDMP PDMP Reviewed: Not Reviewed Attestations Medical Necessity Statement*: Patient is admitted to hospital for diuresis and will require greater than 2 midnights in the hospital Coding Level of Care Code 17955 Diagnoses Hypoglycemia E16.2 Hypothyroidism E03.9 Diabetes mellitus E11.9 Obesity (BMI 30-39.9) E66.9 Sleep apnea G47.30 GERD (gastroesophageal reflux disease) K21.9 Atrial fibrillation, controlled I48.91 Anasarca R60.1 Acute on chronic diastolic (congestive) heart failure I50.33 Time Spent (min) 77
[2025-03-05] VITALS (8 sets, daily range): BP systolic 119–162; BP diastolic 51–79; PULSE 54–85; RESP 12–19; TEMP 36.7–36.9; O2SAT 96–100
--- NOTE | 2025-03-05 00:33 | ECG_ITS ---
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 Measurements Intervals Arnold Rate: 57 P: 0 WA: 0 QRS: -51 QRSD: 87 T: -60 QT: 423 QTc: 413 Interpretive Statements ATRIAL FIBRILLATION WITH SLOW VENTRICULAR RESPONSE LEFT AXIS DEVIATION [QRS AXIS < -30] LOW QRS VOLTAGE [QRS DEFLECTION < 0.5/1.0 mV IN LIMB/CHEST LEADS] ANTEROSEPTAL MYOCARDIAL INFARCTION , OF INDETERMINATE AGE [40+ ms Q WAVE IN V1-V4] Compared to ECG 03/04/2025 20:48:54 Myocardial infarct finding now present Electronically Signed On 03-05-2025 17:03:57 RIVER TRANSPORTATION WORKER by Will Jones M.D. [email or web address]
[2025-03-05 01:11] LABS: Troponin 5 6HR Delta -14.3 ng/L (0-12)
[2025-03-05 01:12] LABS: Blood Urea Nitrogen 18 mg/dL (8-23); Calcium 7.9 mg/dL (8.5-10.5); Carbon Dioxide 25 mmol/L (22-29); Chloride 103 mmol/L (98-107); Glucose 78 mg/dL (65-115); Osmolality Calculated 289 mOsm/kg (285-295); Sodium 139 mmol/L (136-145); Troponin 5 6HR 100.7 ng/L (0-15)
[2025-03-05 01:13] LABS: Anion Gap 14.8 (5-19); Potassium 3.8 mmol/L (3.5-5.1)
[2025-03-05 03:15] LABS: Iron 22 ug/dL (59-158); Total Iron Binding Capacity 231 mcg/dl; Unsaturated Iron Binding 209 ug/dL (112-347)
[2025-03-05] MEDS: multivitamin therapeutic Tablet 1 TAB PO (05:12)
[2025-03-05] MEDS: DAPAGLIFLOZIN 5 MG TABLET PO (05:12)
[2025-03-05] MEDS: bumetanide 0.25 mg/mL SDV 10 mL 2 MG IVP ×2 (05:12→17:21)
[2025-03-05] MEDS: polyethylene glycol 3350 Pkt 17 gm PO (05:12)
--- NOTE | 2025-03-05 07:44 | P.PN_ITS ---
Subjective 2 Subjective: Patient seen and examined on hospital rounds this morning. Patient sitting up in bed stating he continues to have some swelling but his shortness of breath is improved. Discussed case with Dr. Reynolds, increased levothyroxine with concern for severe hypothyroidism. 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 In review of labs hemoglobin 8.70, WBC 8.88, creatinine improved 2.0, iron 22. Initated on Iron and ascorbic acid. We will continue to diurese inpatient, PT OT evaluation pending. Vital signs are stable currently, patient remains on BiPAP this morning. All questions and concerns addressed with the patient at bedside today. Vitals/I&O/Wt Last Vital Signs Temp 98.4 F 03/05/25 05:00 Pulse 59 L 03/05/25 07:41 Resp 12 03/05/25 05:00 BP 152/79 03/05/25 05:00 Pulse Ox 98 03/05/25 07:41 O2 Del Method BiPAP 03/05/25 02:02 O2 Flow Rate 2 03/05/25 00:00 FiO2 25 03/05/25 07:41 03/04/25 03/05/25 03/05/25 22:59 06:59 14:59 Intake Total 250 / 250 240 / 490 Output Total 1050 / 1050 Balance 250 / 250 -810 / -560 Weight last 48 hrs Weight 120.202 kg Weight 120.565 kg Weight 120.202 kg Physical Exam 2 Const: COMMON NORMALS: patient oriented x3 HENMT: COMMON NORMALS: normocephalic and Normal external nose present HEAD & SCALP: normocephalic NOSE: Normal external nose present Eye: COMMON NORMALS: Equal, round and reactive pupils present PUPIL: Yes Equal, round and reactive pupils present Lymph: LYMPHATIC: no lymphedema noted Resp: OTHER: Increased respiratory effort, coarse bilaterally, diminished at the bases Cardio: RHYTHM: abnormal rhythm regularly irregular OTHER: +murmur GI: COMMON NORMALS: Soft to palpation and non-tender PALPATION: Yes Soft to palpation OTHER: Distended Extremity: OTHER: 2+ dependent edema, generalized weakness Neuro: COMMON NORMALS: patient oriented x3 Psych: COMMON NORMALS: cooperative, normal affect and speech normal SPEECH: Yes normal speech Skin: OTHER: Poor turgor Urinary Catheter Management: Huber: Cath Placed During This Visit: yes Reason for Continuing Indwelling Catheter: Other Urinary Catheter Date of Insertion: 03/04/25 Urinary Catheter Time of Insertion: 20:42 Data 03/04/25 18:08 03/05/25 00:28 Micro: Microbiology 03/04/25 18:45 Blood Culture - Preliminary Blood SPECIMEN COLLECTED 03/04/25 18:47 Blood Culture - Preliminary Blood SPECIMEN COLLECTED A&P Assessment and plan 1. Hypoglycemia: 2. Hypothyroidism: 3. Diabetes mellitus: 4. Obesity (BMI 30-39.9): 5. Sleep apnea: 6. GERD (gastroesophageal reflux disease): 7. Atrial fibrillation, controlled: 8. Anasarca: 9. Acute on chronic diastolic (congestive) heart failure: Plan: Acute on Chronic Diastolic CHF Volume overload, Anasarca - ProBNP 5117 - Elevated troponin secondary to CHF, troponin T 115, 110.6, 100.7 - Continue cardioprotective medications with amiodarone, Lipitor, Bumex, Plavix, Xarelto - Continue to diurese with Bumex 2mg IV BID, added metolazone 2.5mg PO Daily - Glucerna, monitor albumin - Strict I&O's, Huber for close measurement Atrial Fibrillation - Rate Controlled - Continue amiodarone 200 mg p.o. daily, Xarelto 20 mg nightly Hypothyroidism - TSH: 55.56, free T40.33 - Admitting MD adjust levothyroxine to 200mcg PO Daily DM-II Hypoglycemia - A1C pending - Sliding scale insulin, POC Sleep Apnea - Continue BiPap GERD - Continue PPI Obesity - BMI 34.0 - Lifestyle modifications and weight loss recommended Pheripheral Arterial Disease - Continue Plavix BPH - Continue Flomax 0.4mg HS Depression - Continue Zoloft 100mg HS Iron Deficiency Anemia - Hgb 8.70 - Iron 22, TIBC 231 - Daily Ferrous Sulfate 325mg and Ascorbic acid 500mg - Monitor CKD-III - Cr 2.2--<2.0 - Renally dose medications and avoid nephrotoxic agents - Monitor DVT PPX: SCD's, Xarelto GI PPX: PPI Code Status: Full Code PDMP PDMP Reviewed: Not Reviewed Attestations 2 Medical Necessity Statement*: Patient is admitted to hospital for diuresis and will require greater than 2 midnights in the hospital Coding Level of Care Code 41065 Diagnoses Hypoglycemia E16.2 Hypothyroidism E03.9 Diabetes mellitus E11.9 Obesity (BMI 30-39.9) E66.9 Sleep apnea G47.30 GERD (gastroesophageal reflux disease) K21.9 Atrial fibrillation, controlled I48.91 Anasarca R60.1 Acute on chronic diastolic (congestive) heart failure I50.33
[2025-03-05] MEDS: ondansetron 2 mg/ML SDV 2 mL 4 MG IVP (21:56)
[2025-03-06] VITALS (7 sets, daily range): BP systolic 109–169; BP diastolic 51–64; PULSE 57–68; RESP 16–21; TEMP 36.4–36.9; O2SAT 97–100
[2025-03-06] MEDS: multivitamin therapeutic Tablet 1 TAB PO (05:38)
[2025-03-06] MEDS: polyethylene glycol 3350 Pkt 17 gm PO (05:39)
[2025-03-06] MEDS: DAPAGLIFLOZIN 5 MG TABLET PO (05:39)
[2025-03-06] MEDS: bumetanide 0.25 mg/mL SDV 10 mL 2 MG IVP ×2 (05:39→17:18)
[2025-03-06 05:41] LABS: Hematocrit 28.4 % (37-53); Hemoglobin 8.00 g/dL (11.27-16.99); Mean Corpuscular HGB Conc 28.2 g/dL (30-55); Mean Corpuscular Hemoglobin 25.9 pg (27-33); Mean Corpuscular Volume 91.9 fl (82-101); Nucleated Red Blood Cells % 0.3 %; Platelet Count 417 10^3/cmm (157-399); Red Blood Count 3.09 10^6/uL (3.85-5.65); White Blood Count 7.89 10^3/uL (3.29-11.43)
[2025-03-06 06:09] LABS: Estmated Average Glucose 117; Hemoglobin A1C 5.7 % (4.0-6.0)
[2025-03-06 06:47] LABS: Alanine Aminotransferase 8 U/L (0-41); Albumin Level 2.7 g/dL (3.5-5.2); Alkaline Phosphatase 109 U/L (40-130); Anion Gap 13.4 (5-19); Aspartate Amino Transferase 15 U/L (0-40); Blood Urea Nitrogen 16 mg/dL (8-23); Calcium 8.0 mg/dL (8.5-10.5); Carbon Dioxide 28 mmol/L (22-29); Chloride 101 mmol/L (98-107); Globulin 2.8 g/dL (1.3-4.6); Glucose 92 mg/dL (65-115); Magnesium 1.8 mg/dL (1.7-2.3); Osmolality Calculated 289 mOsm/kg (285-295); Potassium 3.4 mmol/L (3.5-5.1); Sodium 139 mmol/L (136-145); Total Protein 5.5 g/dL (6.6-8.7)
[2025-03-06] MEDS: ferrous sulfate EC 325 mg Tablet PO (08:00)
--- NOTE | 2025-03-06 08:24 | PC.PHAR ---
Pts' current med list from [facility] and has several missing medications like prn tylenol, daily thyroid, bumex, zyrtec, plavix, jardiance, fast acting insulin...etc. Phoned this morning to get updated med list or verify ALL of pts' medications. 03/06/25
--- NOTE | 2025-03-06 08:47 | PC.CHAP ---
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 [] Patient/Family/Request visit [] Outpatient visit [] Follow-up visit [] Physician referral [] Code/Alert [x] Routine visit [] Staff referral [] Actively dying [] Patient sleeping [] Family support [] [] Out of room [] Palliative care [] [x] Receiving care in room [] Pre-surgical visit [] Trauma [] Long length of stay [] ICU visit [] Other: Relational/Emotional Strength [] Patient feels connected with others/family/visitors/staff [] Distress [] Loneliness/isolation [] Abandonment Spirituality of Patient [] Person of Marta [] Attends Taoist of their Marta [] Believes in Prayer [] Reads Bible or Caodaism materials [] There are Spiritual issues to be addressed 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[employer] [x] Prayer [] Active listening [] Non-anxious presence [] Spiritual/emotional support [] Crisis/trauma care [] Spiritual counseling [] Bereavement support [] Provided bereavement packet [] Provided Bible/devotional materials [] Provided toy/stuffed animal, coloring book to patient or family member [] Provided Communion [] Anointing/[place] [] Salvation [] Completed spiritual assessment [] Other: Impact on Illness or Injury [] Angry [] Fearful [] Anxious [] Often cries [] Exhaustion [] Unable to work [] Unable to attend moravian [] Unable to walk/stand [] Unable to read [] Unable to drive [] Unable to eat/drink [] Unable to sleep [] Unable to be with family [] Patient intubated [] Other: Summary Time spent with patient
--- NOTE | 2025-03-06 09:56 | P.PN_ITS ---
Subjective 2 Subjective: Patient is a very pleasant 79-year-old male seen and examined at bedside on hospital rounds this morning. Patient sitting up in bed with continued swelling, but is improved. Patient continues to state generalized weakness, improved shortness of breath but denies new or worsening symptoms. Pending physical therapy and Occupational Therapy evaluation and recommendations. Patient's vital signs are stable this morning, improved creatinine 1.9. Will continue to diurese patient, working towards discharge hopefully within the next 24 to 48 hours, greatly appreciate case management discharge planning. Vitals/I&O/Wt Last Vital Signs Temp 98.0 F 03/06/25 07:24 Pulse 65 03/06/25 07:24 Resp 17 03/06/25 07:24 BP 139/57 03/06/25 07:24 Pulse Ox 98 03/06/25 07:24 O2 Del Method Nasal Cannula 03/06/25 07:24 O2 Flow Rate 2 03/05/25 20:00 FiO2 25 03/06/25 00:00 03/05/25 03/06/25 03/06/25 22:59 06:59 14:59 Intake Total 240 / 300 120 / 120 Output Total 1250 / 3850 Balance -1010 / -3550 120 / 120 Weight last 48 hrs Weight 120.202 kg Weight 120.202 kg Weight 120.565 kg Weight 120.202 kg Physical Exam 2 Const: COMMON NORMALS: patient oriented x3 HENMT: COMMON NORMALS: normocephalic and Normal external nose present HEAD & SCALP: normocephalic NOSE: Normal external nose present Eye: COMMON NORMALS: Equal, round and reactive pupils present PUPIL: Yes Equal, round and reactive pupils present Lymph: LYMPHATIC: no lymphedema noted Resp: OTHER: Normal respiratory effort,, diminished at the bases Cardio: RHYTHM: abnormal rhythm regularly irregular OTHER: +murmur GI: COMMON NORMALS: Soft to palpation and non-tender PALPATION: Yes Soft to palpation OTHER: Distended Extremity: OTHER: 1+ dependent edema, generalized weakness Neuro: COMMON NORMALS: patient oriented x3 Psych: COMMON NORMALS: cooperative, normal affect and speech normal SPEECH: Yes normal speech Skin: OTHER: Poor turgor Urinary Catheter Management: Huber: Cath Placed During This Visit: yes Reason for Continuing Indwelling Catheter: Required Immobilization for Trauma or Surgery or Anesthesia Urinary Catheter Date of Insertion: 03/04/25 Urinary Catheter Time of Insertion: 20:42 Data 03/06/25 04:31 03/06/25 06:14 Micro: Microbiology 03/04/25 18:45 Blood Culture - Preliminary Blood NEGATIVE TO DATE 03/04/25 18:47 Blood Culture - Preliminary Blood NEGATIVE TO DATE A&P Assessment and plan 1. Hypoglycemia: 2. Hypothyroidism: 3. Diabetes mellitus: 4. Obesity (BMI 30-39.9): 5. Sleep apnea: 6. GERD (gastroesophageal reflux disease): 7. Atrial fibrillation, controlled: 8. Anasarca: 9. Acute on chronic diastolic (congestive) heart failure: Plan: Acute on Chronic Diastolic CHF Volume overload, Anasarca - ProBNP 5117 - Elevated troponin secondary to CHF, troponin T 115, 110.6, 100.7 - denies chest pain - Continue cardioprotective medications with amiodarone, Lipitor, Bumex, Plavix, Xarelto - Continue to diurese with Bumex 2mg IV BID, added metolazone 2.5mg PO Daily - Glucerna, monitor albumin - Strict I&O's, Huber for close measurement Atrial Fibrillation - Rate Controlled - Continue amiodarone 200 mg p.o. daily, Xarelto 20 mg nightly Hypothyroidism - TSH: 55.56, free T40.33 - Admitting MD adjust levothyroxine to 200mcg PO Daily DM-II Hypoglycemia - A1C 5.7 - Sliding scale insulin, POC Sleep Apnea - Continue BiPap GERD - Continue PPI Obesity - BMI 34.0 - Lifestyle modifications and weight loss recommended Pheripheral Arterial Disease - Continue Plavix BPH - Continue Flomax 0.4mg HS Depression - Continue Zoloft 100mg HS Iron Deficiency Anemia - Hgb 8.70 - Iron 22, TIBC 231 - Daily Ferrous Sulfate 325mg and Ascorbic acid 500mg - Monitor CKD-III - Cr 2.2--<2.0--<1.9 - Renally dose medications and avoid nephrotoxic agents - Monitor DVT PPX: SCD's, Xarelto GI PPX: PPI Code Status: Full Code PDMP PDMP Reviewed: Not Reviewed Attestations 2 Medical Necessity Statement*: Patient is admitted to hospital for diuresis and will require greater than 2 midnights in the hospital Coding Level of Care Code 40830 Diagnoses Hypoglycemia E16.2 Hypothyroidism E03.9 Diabetes mellitus E11.9 Obesity (BMI 30-39.9) E66.9 Sleep apnea G47.30 GERD (gastroesophageal reflux disease) K21.9 Atrial fibrillation, controlled I48.91 Anasarca R60.1 Acute on chronic diastolic (congestive) heart failure I50.33
--- NOTE | 2025-03-06 09:58 | PC.PHAR ---
Jermaine Martinez nurse states she is prn and not familiar with pts medications. She states pt was at [facility] for 2 weeks and came back without the following medications: Tylenol 325-2 po qid prn Bumetanide 2mg daily Zyrtec 5mg qpm prn Plavix 75mg daily Farxiga 5mg daily Humalog Kwik Pen 12 units tid Levothyroxine 100mcg qam Magnesium Oxide 400mg bid Melatonin 3mg qhs Metolazone 2.5mg qod Metoprolol Tartrate 25mg bid Sertraline 100mg bedtime Flomax 0.4mg bedtime Xarelto 20mg qpm I was uncomfortable removing these from pts med list. I did add a note in the pharmacy notes space with last fill date.
--- NOTE | 2025-03-06 12:10 | PC.SOCIAL ---
IMM Update pg 2 of IMM updated and reviewed w/ patient. Copy provided and copy dated, initialed and placed in chart.
[2025-03-06] MEDS: HYDROcodone-acetaminophen 5-325 mg Tablet 1 TAB PO (17:26)
[2025-03-07] VITALS: BP 135/65; PULSE 67; RESP 17; TEMP 36.6; O2SAT 100
[2025-03-07 04:00] VITALS: BP 128/72; PULSE 70; RESP 17; TEMP 36.3; O2SAT 99
[2025-03-07] MEDS: DAPAGLIFLOZIN 5 MG TABLET PO (04:45)
[2025-03-07] MEDS: polyethylene glycol 3350 Pkt 17 gm PO (04:45)
[2025-03-07] MEDS: multivitamin therapeutic Tablet 1 TAB PO (04:46)
[2025-03-07] MEDS: bumetanide 0.25 mg/mL SDV 10 mL 2 MG IVP (04:46)
[2025-03-07 07:06] LABS: Hematocrit 28.8 % (37-53); Hemoglobin 8.00 g/dL (11.27-16.99); Mean Corpuscular HGB Conc 27.8 g/dL (30-55); Mean Corpuscular Hemoglobin 25.6 pg (27-33); Mean Corpuscular Volume 92.3 fl (82-101); Nucleated Red Blood Cells % 0 %; Platelet Count 387 10^3/cmm (157-399); Red Blood Count 3.12 10^6/uL (3.85-5.65); White Blood Count 8.79 10^3/uL (3.29-11.43)
[2025-03-07 07:21] LABS: Alanine Aminotransferase 7 U/L (0-41); Albumin Level 2.6 g/dL (3.5-5.2); Alkaline Phosphatase 109 U/L (40-130); Anion Gap 11.1 (5-19); Aspartate Amino Transferase 15 U/L (0-40); Blood Urea Nitrogen 19 mg/dL (8-23); Calcium 7.8 mg/dL (8.5-10.5); Carbon Dioxide 32 mmol/L (22-29); Chloride 98 mmol/L (98-107); Globulin 3.0 g/dL (1.3-4.6); Glucose 123 mg/dL (65-115); Osmolality Calculated 290 mOsm/kg (285-295); Potassium 3.1 mmol/L (3.5-5.1); Sodium 138 mmol/L (136-145); Total Protein 5.6 g/dL (6.6-8.7)
[2025-03-07 07:23] VITALS: BP 130/65; PULSE 68; RESP 16; TEMP 36.6; O2SAT 100
[2025-03-07] MEDS: ferrous sulfate EC 325 mg Tablet PO (08:34)
--- NOTE | 2025-03-07 09:59 | PM.DCS ---
Discharge Providers Date of Admission: 03/04/25 21:51 Date of Discharge: March 07, 2025 Attending Provider at Admission: Devonte Jose MD Attending Provider at Discharge: Ashtyn Chen NP Primary Care Provider: Humberto Griggs DO Diagnoses at Discharge Discharge Diagnosis 1. Hypoglycemia: 2. Hypothyroidism: 3. Diabetes mellitus: 4. Obesity (BMI 30-39.9): 5. Sleep apnea: 6. GERD (gastroesophageal reflux disease): 7. Atrial fibrillation, controlled: 8. Anasarca: 9. Acute on chronic diastolic (congestive) heart failure: Reason for Visit Reason for Visit: hypoglycemia; bradycardia Brief History: Admission: Andrés Dumont is a 79 year old male brought in with hypotension and bradycardia from [facility]. Patient had a right BKA performed at [facility] 3 weeks ago on a possibly February 09. Daughter present at bedside states the patient was doing well early this morning visiting with friends but this afternoon his Karina called and stated that he had hypoglycemia and lethargy. He was unresponsive here until nurse placed his Huber. Since then he has been complaining of some dysuria with the catheter though urine is negative for infection. I note that in February he had TSH of 27.46 and I started him on levothyroxine and in January TSH still high at 12.63But TSH but free T4 was low normal at 0.92 and T3 was low but dose was not adjusted. He is on amiodarone which I think is causing his hypothyroidism and I started him on 100 mcg levothyroxine daily which he is still on. Patient admits to sleeping a lot i.e. 12 to 13 hours a day since his surgery poor appetite losing weight not eating much. He had some confusion and drowsiness today he has generalized edema. Patient is [employer] and does not want blood transfusions even if dying. He does want full CODE STATUS but not prolong life support. Hospital Course Hospital Course Acute on Chronic Diastolic CHF Volume overload, Anasarca - ProBNP 5117 - Elevated troponin secondary to CHF, troponin T 115, 110.6, 100.7 - denies chest pain - Continue cardioprotective medications with amiodarone, Lipitor, Bumex, Plavix, Xarelto - Diurese with Bumex 2mg IV BID, transitioned back to oral bumex at discharge added metolazone 2.5mg PO Daily - Glucerna, monitor albumin - Strict I&O's, Huber for close measurement Atrial Fibrillation - Rate Controlled - Continue amiodarone 200 mg p.o. daily, Xarelto 20 mg nightly Hypothyroidism - TSH: 55.56, free T40.33 - Admitting MD adjust levothyroxine to 200mcg PO Daily DM-II Hypoglycemia - A1C 5.7 - Sliding scale insulin, POC Sleep Apnea - Continue BiPap GERD - Continue PPI Obesity - BMI 34.0 - Lifestyle modifications and weight loss recommended Pheripheral Arterial Disease - Continue Plavix BPH - Continue Flomax 0.4mg HS Depression - Continue Zoloft 100mg HS Iron Deficiency Anemia - Hgb 8.70 - Iron 22, TIBC 231 - Daily Ferrous Sulfate 325mg and Ascorbic acid 500mg - Monitor CKD-III - Cr 2.2--<2.0--<1.9--<1.9 - Renally dose medications and avoid nephrotoxic agents - Monitor Discharge: Discharge back to retirement in stable condition. Patient diuresed very well, transitions back to oral diuretics and advised to follow-up outpatient with primary care provider for continued outpatient management. 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 Advise follow-up with primary care provider in 1 to 2 days of discharge. All questions and concerns addressed to the patient prior to discharge. Physical Exam Const: COMMON NORMALS: patient oriented x3 HENMT: COMMON NORMALS: normocephalic and Normal external nose present HEAD & SCALP: normocephalic NOSE: Normal external nose present Eye: COMMON NORMALS: Equal, round and reactive pupils present PUPIL: Yes Equal, round and reactive pupils present Lymph: LYMPHATIC: no lymphedema noted Resp: OTHER: Normal respiratory effort,, diminished at the bases Cardio: RHYTHM: abnormal rhythm regularly irregular OTHER: +murmur GI: COMMON NORMALS: Soft to palpation and non-tender PALPATION: Yes Soft to palpation OTHER: Distended Extremity: OTHER: trace dependent edema, generalized weakness Neuro: COMMON NORMALS: patient oriented x3 Psych: COMMON NORMALS: cooperative, normal affect and speech normal SPEECH: Yes normal speech Skin: OTHER: Poor turgor Urinary Catheter Management: Huber: Cath Placed During This Visit: yes Reason for Continuing Indwelling Catheter: Other Urinary Catheter Date of Insertion: 03/04/25 Urinary Catheter Time of Insertion: 20:42 Discharge Data Studies Completed and Pending Completed Studies During Hospitalization Category Date Time Status CT chest abdpel w/*[id number] Stat Cat Scan 03/04/25 18:[address] head wo con* [id number] Stat Cat Scan 03/04/25 18:32 Completed XR chest 1V portable [id number] Stat Exams 03/04/25 18:32 Completed Pending at discharge Category Date Time Status Blood Culture Stat Lab 03/04/25 18:45 Results Complete Blood Count w/Auto AM LABS Lab 03/08/25 04:00 Ordered Comprehensive Metabolic Panel AM LABS Lab 03/08/25 04:00 Ordered Radiology Impressions Chest X-Ray 03/04/25 18:32 IMPRESSION: Probable small effusion with possible infiltrate versus atelectasis along the right heart border. Head CT 03/04/25 18:32 IMPRESSION: No acute intracranial abnormality. Chest/Abdomen/Pelvis CT 03/04/25 18:50 IMPRESSION: Moderate right and mild left effusion with associated compressive atelectasis, superimposed infection not excluded. IMPRESSION: No definite acute findings. Laboratory Results WBC 8.79 10^3/uL (3.29-11.43) 03/07/25 06:30 RBC 3.12 10^6/uL (3.85-5.65) L 03/07/25 06:30 Hgb 8.00 g/dL (11.27-16.99) L 03/07/25 06:30 Hct 28.8 % (37-53) L 03/07/25 06:30 MCV 92.3 fl (82-101) 03/07/25 06:30 MCH 25.6 pg (27-33) L 03/07/25 06:30 MCHC 27.8 g/dL (30-55) L 03/07/25 06:30 RDW 20.1 % (12.1-15.1) H 03/07/25 06:30 Plt Count 387 10^3/cmm (157-399) 03/07/25 06:30 MPV 8.9 fL (7.4-10.4) 03/07/25 06:30 Neut % (Auto) 67.4 % 03/07/25 06:30 Lymph % (Auto) 11.1 % 03/07/25 06:30 [place] % (Auto) 13.0 % 03/07/25 06:30 Eos % (Auto) 7.4 % 03/07/25 06:30 Baso % (Auto) 0.6 % 03/07/25 06:30 Neut # (Auto) 5.93 10^3/uL (1.8-7.7) 03/07/25 06:30 Lymph # (Auto) 1.0 10^3/uL (0.8-4.8) 03/07/25 06:30 [place] # (Auto) 1.1 10^3/uL (0.2-0.9) H 03/07/25 06:30 Eos # (Auto) 0.7 10^3/uL (0.0-0.8) 03/07/25 06:30 Baso # (Auto) 0.1 10^3/uL (0.0-0.1) 03/07/25 06:30 Nucleated RBC % (auto) 0 % 03/07/25 06:30 Nucleated RBCs # 0.0 /100WBC 03/07/25 06:30 PT 15.30 SECONDS (12.1-14.9) H 03/04/25 18:08 INR 1.13 (0.8-1.2) 03/04/25 18:08 APTT 35.0 SECONDS (23.9-36.7) 03/04/25 18:08 Specimen Type Arterial 03/04/25 18:36 Sample Site Radial, right 03/04/25 18:36 ABG pH 7.38 (7.35-7.45) 03/04/25 18:36 ABG pCO2 43.0 mmHg (35-45) 03/04/25 18:36 ABG pO2 92.5 mmHg (80.0-100.0) 03/04/25 18:36 ABG PO2/FiO2 Ratio 330 03/04/25 18:36 ABG HCO3 25.7 mmol/L (22-26) 03/04/25 18:36 ABG Base Excess 0.5 mmol/L (-2.0-2.0) 03/04/25 18:36 Todd Test Pos 03/04/25 18:36 Hematocrit 26.3 % (42-52) L 03/04/25 18:36 O2 Delivery Device Nc 03/04/25 18:36 O2 Liters/Min 2.0 % 03/04/25 18:36 FiO2 28.0 % 03/04/25 18:36 Sprayer Operator ID glc 03/04/25 18:36 Sodium 138 mmol/L (136-145) 03/07/25 06:30 Potassium 3.1 mmol/L (3.5-5.1) L 03/07/25 06:30 Chloride 98 mmol/L (98-107) 03/07/25 06:30 Carbon Dioxide 32 mmol/L (22-29) H 03/07/25 06:30 Anion Gap 11.1 (5-19) 03/07/25 06:30 BUN 19 mg/dL (8-23) 03/07/25 06:30 Creatinine 1.9 mg/dL (0.7-1.2) H 03/07/25 06:30 GFR Calculation Not Reportable 03/07/25 06:30 Glucose 123 mg/dL (65-115) H 03/07/25 06:30 POC Glucose 120 mg/dL (70-110) H 03/07/25 06:29 Estimat Average Glucose 117 03/06/25 04:31 Hemoglobin A1c 5.7 % (4.0-6.0) 03/06/25 04:31 Calculated Osmolality 290 mOsm/kg (285-295) 03/07/25 06:30 Lactic Acid 1.6 mmol/L (0.5-2.2) 03/04/25 18:08 Uric Acid 6.0 mg/dL (3.4-7.0) 03/04/25 18:08 Calcium 7.8 mg/dL (8.5-10.5) L 03/07/25 06:30 Magnesium 1.8 mg/dL (1.7-2.3) 03/06/25 06:14 Iron 22 ug/dL (59-158) L 03/04/25 18:08 TIBC 231 mcg/dl 03/04/25 18:08 % Saturation 9.5 % (20-50) L 03/04/25 18:08 Unsat Iron Binding 209 ug/dL (112-347) 03/04/25 18:08 Total Bilirubin 0.6 mg/dL (0.15-1.2) 03/07/25 06:30 AST 15 U/L (0-40) 03/07/25 06:30 ALT 7 U/L (0-41) 03/07/25 06:30 Alkaline Phosphatase 109 U/L (40-130) 03/07/25 06:30 Troponin T Baseline 115 ng/L (0-15) H* 03/04/25 18:08 Troponin T 60 Minute 110.6 ng/L (0-15) H 03/04/25 19:28 Delta Troponin T -4.4 ABS# (0-10) L 03/04/25 19:28 Troponin T Hi Sens 6Hr 100.7 ng/L (0-15) H 03/05/25 00:28 Troponin T Hi Sens 6Hr Delta -14.3 ng/L (0-12) L 03/05/25 00:28 C-Reactive Protein 19.1 mg/L (0.0-4.9) H 03/04/25 18:08 NT-Pro-B Natriuret Pep 5117 pg/mL (0-450) H 03/04/25 18:08 Total Protein 5.6 g/dL (6.6-8.7) L 03/07/25 06:30 Albumin 2.6 g/dL (3.5-5.2) L 03/07/25 06:30 Globulin 3.0 g/dL (1.3-4.6) 03/07/25 06:30 TSH 55.56 uIU/mL (0.27-4.20) H 03/04/25 18:08 Free T4 0.33 ng/dL (0.82-1.77) L 03/04/25 18:08 Random Cortisol 11.48 ug/dL (2.47-19.5) 03/04/25 18:08 Urine Color Yellow (Yellow) 03/04/25: Urine Appearance Clear (CLEAR) 03/04/25: Urine pH 5.0 (5-7) 03/04/25: Ur Specific [place] 1.018 (1.005-1.030) 03/04/25 20: Urine Protein 1+ (Negative) A 03/04/25 20: Urine Glucose (UA) Negative (Normal) 03/04/25 20: Urine Ketones Negative (Negative) 03/04/25 20: Urine Blood Negative (Negative) 03/04/25 20: Urine Nitrate Negative (Negative) 03/04/25 20: Urine Bilirubin Negative (Negative) 03/04/25 20: Urine Urobilinogen 0.2 mg/dL (Negative) 03/04/25 20: Ur Leukocyte Esterase Negative (Negative) 03/04/25 20: Urine RBC 0-2 /hpf (0-2) 03/04/25 20: Urine WBC 0-5 /hpf (0-5) 03/04/25 20: Ur Squamous Epith Cells 0-5 /hpf (0-5) 03/04/25 20: Amorphous Sediment Not Reportable 03/04/25 20: Urine Bacteria None seen /hpf (NONE) 03/04/25 20: Hyaline Casts 15.28 /lpf 03/04/25 20:26 Vitals Last Vital Signs Temp 97.9 F 03/07/25 07:23 Pulse 68 03/07/25 07:23 Resp 16 03/07/25 07:23 BP 130/65 03/07/25 07:23 Pulse Ox 100 03/07/25 07:23 O2 Del Method Nasal Cannula 03/07/25 07:23 O2 Flow Rate 2 03/07/25 04:00 FiO2 25 03/06/25 19:15 Discharge Plan Discharge Patient Disposition: Xfer LTC Condition: Stable Prescriptions: New cetirizine 10 mg Tablet 5 mg PO BEDTIME PRN (Reason: Allergy Symptoms) 30 Days Qty: 30 0RF ursodiol 300 mg Capsule 300 mg PO BID 30 Days Qty: 60 0RF metolazone 5 mg Tablet 2.5 mg PO DAILY 30 Days Qty: 30 0RF levothyroxine 200 mcg Tablet 200 mcg PO QAM 30 Days Qty: 30 0RF ascorbic acid (vitamin C) [Vitamin C] 500 mg Tablet 500 mg PO DAILY 30 Days Qty: 30 0RF bumetanide 2 mg tablet 2 mg PO DAILY 30 Days Qty: 30 0RF Continued pantoprazole 40 mg tablet,delayed release (DR/EC) 40 mg PO DAILY amiodarone 200 mg tablet 200 mg PO DAILY acetaminophen 325 mg capsule 650 mg PO QID PRN (Reason: Pain) sertraline 100 mg tablet 100 mg PO BEDTIME multivitamin [Multiple Vitamins] Tablet 1 tab PO DAILY albuterol sulfate 90 mcg/actuation HFA aerosol inhaler 2 puff INHALATION .Q4H PRN (Reason: Shortness Of Breath) carvedilol 12.5 mg tablet 12.5 mg PO BID magnesium hydroxide [Milk of Magnesia] 400 mg/5 mL Suspension 1,530 ml PO DAILY PRN (Reason: Constipation) Fleet Enema 19-7 gram/118 mL Enema 118 ml MI DAILY PRN (Reason: Constipation) folic acid 1 mg Tablet 1 mg PO DAILY fluticasone propionate [Flonase] 50 mcg/actuation [place],Suspension 1 spray INTRANASAL BID Rx Instructions: administer into each nostril escitalopram oxalate [Lexapro] 10 mg Tablet 10 mg PO DAILY ferrous sulfate 324 mg (65 mg iron) Tablet,Delayed Release (Dr/Ec) 324 mg PO DAILY guaifenesin [Mucinex] 600 mg Tablet Extended Release 12hr 600 mg PO BID insulin glargine [Lantus Solostar U-100 Insulin] 100 unit/mL (3 mL) insulin pen 30 unit SUBCUT BID insulin lispro [Humalog KwikPen Insulin] 100 unit/mL insulin pen 12 unit SUBCUT TID bisacodyl 10 mg Suppository 10 mg MI DAILY PRN (Reason: constipation ) Xarelto 20 mg tablet 20 mg PO QPM tamsulosin [Flomax] 0.4 mg capsule 0.4 mg PO BEDTIME rosuvastatin 40 mg tablet 40 mg PO BEDTIME hydrocodone-acetaminophen 5-325 mg tablet 1 tab PO Q6H PRN (Reason: Pain, Moderate) Qty: 1 0RF Rx Instructions: Dose change to PRN only melatonin 3 mg Tablet 3 mg PO BEDTIME PRN (Reason: Sleep) Qty: 1 0RF polyethylene glycol 3350 [Miralax] 17 gram/dose Powder 17 g PO DAILY clopidogrel 75 mg Tablet 75 mg PO DAILY Qty: 30 0RF dapagliflozin propanediol 5 mg Tablet 5 mg PO DAILY Qty: 30 0RF magnesium oxide 400 mg (241.3 mg magnesium) Tablet 400 mg PO BID Qty: 60 0RF potassium chloride 10 mEq capsule, extended release 10 meq PO BID Culturelle 10 billion cell Capsule 1 cap PO BID Held furosemide 40 mg tablet 40 mg PO DAILY Hold Instructions: Resume on 01/01/26. Resume under the direction of primary care provider hydralazine 25 mg tablet 25 mg PO BID Hold Instructions: Resume on 03/23/25. Hold in the setting of hypotension, resume under the direction of primary care provider Discontinued lisinopril 20 mg tablet 20 mg PO DAILY Fleet Enema 19-7 gram/118 mL Enema 118 ml MI DAILY PRN (Reason: Constipation) levothyroxine [Levoxyl] 100 mcg Tablet 100 mcg PO QAM Qty: 30 0RF metoprolol tartrate 25 mg Tablet 25 mg PO BID@0900,2100 Qty: 60 0RF metolazone 2.5 mg Tablet See Rx Instructions .ROUTE .COMPLEX Rx Instructions: Take one tablet by mouth every other day for diuretic Discharge Order = DC NOW: Discharge Order (Routine); Ordered 03/07/25 Ordered By: Ashtyn Chen Referrals: Humberto Griggs DO [Primary Care Provider, Family Practice] - 1-3 days Mark Constantino MD [Physician, Endocrinology] - 1 week Referral Note: Hypothyroidism Discharge Diet: Cardiac Discharge Activity: Resume usual activity Patient Instructions: Patient Portal & Ann Instructions Activity Restrictions/Additional Instructions: Continued supplemental oxgyen and CPAP while sleeping Discharge Attestations Time Spent in Discharge Care*: greater than 30 min Quality Metrics Clinical Quality Measures [ No reported AMI, CVA or VTE this stay] Coding Level of Care Code 57935 Diagnoses Hypoglycemia E16.2 Hypothyroidism E03.9 Diabetes mellitus E11.9 Obesity (BMI 30-39.9) E66.9 Sleep apnea G47.30 GERD (gastroesophageal reflux disease) K21.9 Atrial fibrillation, controlled I48.91 Anasarca R60.1 Acute on chronic diastolic (congestive) heart failure I50.33
[2025-03-07 11:22] VITALS: BP 137/68; PULSE 73; RESP 17; TEMP 36.6; O2SAT 100
[2025-03-07 12:25] VITALS: BP 137/68; PULSE 73; RESP 17; TEMP 36.6; O2SAT 100
--- NOTE | 2025-03-07 12:51 | PC.NURSE ---
1250 Discharged patient via W/C with [facility] transport jose d. Male family member at bedside took belongings except blanket which I placed on his lap.
== END 2025-03-07 12:50 | disposition skilled nursing facility (03) | DRG 291 ==
LOC: ER 21:01 → MEDSURG 22:20
PROVIDERS: Admitting Provider Internal Medicine; Emergency Provider Emergency Medicine; PCP Electrodiagnostic Medicine; Visit Provider Registered Nurse
DX: I13.0 Hypertensive heart and chronic kidney disease with heart failure and stage 1 through stage 4 chronic kidney disease, or unspecified chronic kidney disease (principal); I50.33 Acute on chronic diastolic (congestive) heart failure; E03.9 Hypothyroidism, unspecified; E11.649 Type 2 diabetes mellitus with hypoglycemia without coma; K21.9 Gastro-esophageal reflux disease without esophagitis; R00.1 Bradycardia, unspecified; I48.91 Unspecified atrial fibrillation; I95.9 Hypotension, unspecified; D50.9 Iron deficiency anemia, unspecified; F32.A Depression, unspecified; E11.22 Type 2 diabetes mellitus with diabetic chronic kidney disease; N18.30 Chronic kidney disease, stage 3 unspecified; D63.1 Anemia in chronic kidney disease; R30.0 Dysuria; E11.42 Type 2 diabetes mellitus with diabetic polyneuropathy; N40.0 Benign prostatic hyperplasia without lower urinary tract symptoms; E11.51 Type 2 diabetes mellitus with diabetic peripheral angiopathy without gangrene; G47.30 Sleep apnea, unspecified; E66.9 Obesity, unspecified; Z79.899 Other long term (current) drug therapy; Z79.4 Long term (current) use of insulin; Z79.01 Long term (current) use of anticoagulants; Z79.890 Hormone replacement therapy; Z88.8 Allergy status to other drugs, medicaments and biological substances; Z90.49 Acquired absence of other specified parts of digestive tract; Z87.891 Personal history of nicotine dependence; Z89.511 Acquired absence of right leg below knee; Z68.34 Body mass index [BMI] 34.0-34.9, adult
CPT/HCPCS: 36415; 36416; 36600; 51702; 70450; 71045; 71260; 74177; 80048; 80053; 81001; 82533; 82803; 82962; 83036; 83540; 83550; 83605; 83735; 83880; 84439; 84443; 84484; 84550; 85025; 85610; 85730; 86140; 87040; 93005; 94660; 96372; 96374; 97161; 97167; 99285; J1815; J1938; J2405; J3490; J7799; J9999